=== PATIENT | female | born 1965 | race Caucasian/White ===

== ENCOUNTER 2016-07-16 18:54 | Emergency (ER) | payer MEDICARE, MEDICAID ==
[~2016-07-16] VITALS: Ht 162.5 cm; Wt 79.4 kg
[~2016-07-16 18:54] MED LIST: ALTOPREV20 MG PO; AMBIEN10 M1 PO; AMOXIL500 MG PO; ANAPROX DS550 MG PO; AUGMENTIN 500500 M1 PO; AUGMENTIN 875 M1 TAB PO; AUGMENTIN 875875 MG PO; BACTRIM DS 8001 TA1 PO; BENADRYL ALLERG25 M5 PO; CARAFATE1 G1 PO; CEFADROXIL500 M1 PO; CEFTRIAXONE1 GM IV; CIPRO IV; CIPRO500 MG PO; CLARITIN10 MG PO; CLINDAMYCIN150 MG PO; COLACE100 MG PO; COZAAR50 MG PO; CYMBALTA20 MG PO; DARVOCET N 1001 TAB PO; DAYPRO600 M1 PO; DOXYCYCLINE100 MG PO; DUONEB 3 MG/3 ML3 M1 INH; DURAMORPH1 MG/ML IV; FEOSOL300 MG PO; FLOMAX0.4 MG PO; FLOXIN 10 ML10 ML OT; FOLIC ACID1 MG PO; Fiorinal,Butalb1 TAB PO; GABAPENTIN300 MG PO; GLUCOPHAGE500 MG PO; GLYBURIDE2.5 MG PO; HEPARIN SOD5000 U/ML SQ; HUMALOG100 U/ML SC; HUMALOG100 U/ML SQ; HUMALOG100 UNIT/2 SQ; HYDROCODONE BIT1 T11 PO; INSULIN-HUMA100 U/ML SC; JANUVIA50 MG PO; KLONOPIN0.5 MG PO; LANTUS SOLOS100 U/M1 SC; LANTUS100 U/ML SC; LASIX20 MG PO; LASIX40 MG PO; LEVAQUIN500 M1 PO; LEVOTHYROXIN0.025 MG PO; LIPITOR10 MG PO; LIPITOR20 MG PO; LISINOPRIL10 MG PO; LISINOPRIL2.5 MG PO; LOVENOX30 MG/0.3 SC; LOVENOX40 MG/0.4 SC; LYRICA150 MG PO; LYRICA200 M1 PO; LYRICA200 MG PO; LYRICA50 MG PO; Lovenox40 MG/0.4 SC; MARINOL2.5 MG PO; MEDROL DOSEPAK4 MG PO; MEGACE 40400 MG/10 PO; METFORMIN1000 MG PO; METFORMIN500 MG PO; MIRALAX POWDER255 GM PO; MOBIC15 MG PO; MOTRIN600 MG PO; MOTRIN800 MG PO; MULTIPLE VITAMI1 CAP PO; NAPROSYN500 MG PO; NEURONTIN300 MG PO; NEURONTIN600 MG PO; NEURONTIN800 MG PO; NORCO 10-325 T1 EACH PO; NORCO 7.5-3251 EACH PO; NOVOLIN R100 U/ML SC; NOVOLOG (INSULI10 ML SC; NOVOLOG FLEX100 U/ML SC; NOVOLOG1 UNIT/0.0; OMEPRAZOLE20 M2 PO; ONDANSETRON H2 MG/ML IV; OSCAL,OYSTER S500 MG PO; OXYCONTIN10 MG PO; PENICILLIN VK500 MG PO; PERCOCET 325 MG1 TA2 PO; PERCOCET 325 MG1 TA5 PO; PERCOCET 325 MG1 TA6 PO; PERCOCET 325 MG1 TA7 PO; PERCOCET 650 MG1 TA1 PO; PHENERGAN25 M3 PO; PHENERGAN25 MG PO; PRAVACHOL40 MG PO; PRILOSEC20 M1 PO; PROSTAT 64 PO; PROTONIX40 MG PO; Peridex 473 ML473 ML PO; ROBAXIN750 MG PO; ROBITUSSIN-AC 160 ML PO; SERTRALINE HYDR25 MG PO; SILVADENE1% TP; Synthroid,Levo25 MCG PO; TRAMADOL HCL50 MG PO; TRICOR48 MG PO; TRIMOX500 MG PO; TYLENOL WITH CO1 TA1 PO; TYLENOL325 M1 PO; ULTRAM50 MG PO; VANCOMYCIN; VANCOMYCIN HYDRO1 G1; VANCOMYCIN IV; VIBRAMYCIN100 MG PO; VICO75300 PO; VICODIN 5-3001 EACH PO; VICODIN 5/500 505 MG PO; VICODIN 500 MG-1 TAB PO; VITAMIN D2000 IU PO; VITAMIN D50000 I3 PO; ZESTRIL,PRINIVI20 MG PO; ZOCOR10 MG PO; ZOFRAN ODT4 MG SL; ZOFRAN4 MG PO; ZOLOFT50 MG PO; ZYRTEC10 MG PO; Zofran4 MG PO; [UNRECOGNIZED DRUG - OTHER]; [UNRECOGNIZED DRUG - OTHER] IV
[2016-07-16] MEDS ORDERED: COREG CR40 MG PO (19:22)
[2016-07-16 19:45] LABS: BASO # 0.1 10*3/uL (0.0-0.1); BASO % 0.6 % (0.0-1.0); EOS # 0.3 10*3/uL (0.0-0.4); HEMOGLOBIN 11.4 g/dl (12.0-16.0); LYMPH # 1.6 10*3/uL (1.3-4.4); LYMPH % 18.4 % (27.0-41.0); MEAN CORPUSCULAR HGB CONC 32.6 g/dl (33.0-37.0); MEAN PLATELET VOLUME 11.3 fl (9.6-12.3); MONO # 0.6 10*3/uL (0.1-1.0); MONO % 7.1 % (3.0-9.0); NEUT # 6.3 10*3/uL (2.3-7.9); NEUT % 70.6 % (47.0-73.0); PLATELET COUNT AUTOMATED 272 10*3/uL (130-400); RED BLOOD COUNT 4.07 10*6/uL (4.10-5.10); RED CELL DISTRI WIDTH 15.6 % (0-14.5); WHITE BLOOD COUNT 8.9 10*3/uL (4.8-10.8)
[2016-07-16 20:02] LABS: ALBUMIN 3.1 gm/dl (3.1-4.5); ALKALINE PHOSPHATASE 74 U/L (45-117); BILIRUBIN, TOTAL 0.3 mg/dl (0.2-1.0); BUN 35 mg/dl (7-24); CARBON DIOXIDE 21 mmol/L (21-32); CHLORIDE 106 mmol/L (98-107); EST GLOM FILT AFRICAN AMERICAN 40 ml/min; GLUCOSE 221 mg/dL (65-99); SGOT/AST 8 IU/L (3-35); SGPT/ALT 17 U/L (12-78); SODIUM 138 mmol/L (136-145); TOTAL PROTEIN 8.3 gm/dL (6.4-8.2)
[2016-07-16 20:07] LABS: TROPONIN I < 0.015 ng/ml (<0.045)
[2016-07-16 20:30] LABS: BILIRUBIN NEGATIVE (NEGATIVE); BLOOD 2+ (NEGATIVE); CLARITY SL CLOUDY (CLEAR); COLOR YELLOW (YELLOW); GLUCOSE 1+ (NEGATIVE); KETONE NEGATIVE (NEGATIVE); LEUKO ESTERASE NEGATIVE (NEGATIVE); NITRITE NEGATIVE (NEGATIVE); PROTEIN 3+ (NEGATIVE); SPECIFIC GRAVITY 1.025 (1.005-1.030); UROBILINOGEN 0.2 E.U./dl (0.2-1.0)
[2016-07-16 20:41] LABS: BACTERIA 1+; EPITHELIAL CELLS 20-25; URINE REFLEX COMMENT YES (NO)
[2016-07-16] MEDS ORDERED: LYRICA200 M1 PO (21:00)
== END 2016-07-16 21:24 | disposition home or self-care (01) ==
LOC: ED 18:54
PROVIDERS: Emergency Medicine Emergency Medical Services
DX: G62.81 Critical illness polyneuropathy (principal); I99.8 Other disorder of circulatory system; E10.10 Type 1 diabetes mellitus with ketoacidosis without coma; E10.621 Type 1 diabetes mellitus with foot ulcer; F14.10 Cocaine abuse, uncomplicated; F41.1 Generalized anxiety disorder; M86.9 Osteomyelitis, unspecified; Z88.1 Allergy status to other antibiotic agents; Z79.899 Other long term (current) drug therapy

== ENCOUNTER 2016-07-17 21:14 | Emergency (ER) | payer MEDICARE, MEDICAID ==
[~2016-07-17] VITALS: Ht 162.5 cm; Wt 79.4 kg
[~2016-07-17 21:14] MED LIST changes: +COREG CR40 MG PO
[2016-07-17 21:19] VITALS: BP 162/74
[2016-07-17 21:39] LABS: BASO # 0.1 10*3/uL (0.0-0.1); BASO % 0.7 % (0.0-1.0); EOS # 0.2 10*3/uL (0.0-0.4); EOS % 2.8 % (1.0-4.0); HEMOGLOBIN 11.2 g/dl (12.0-16.0); LYMPH # 1.6 10*3/uL (1.3-4.4); LYMPH % 19.9 % (27.0-41.0); MEAN CELL VOLUME 86.6 fl (81.0-99.0); MEAN CORPUSCULAR HGB 27.7 pg (27.0-31.0); MEAN PLATELET VOLUME 11.4 fl (9.6-12.3); MONO # 0.6 10*3/uL (0.1-1.0); NEUT # 5.6 10*3/uL (2.3-7.9); NEUT % 69.4 % (47.0-73.0); PLATELET COUNT AUTOMATED 285 10*3/uL (130-400); RED BLOOD COUNT 4.04 10*6/uL (4.10-5.10); RED CELL DISTRI WIDTH 15.6 % (0-14.5); WHITE BLOOD COUNT 8.1 10*3/uL (4.8-10.8)
[2016-07-17 21:58] LABS: ALBUMIN 3.1 gm/dl (3.1-4.5); BILIRUBIN, TOTAL 0.3 mg/dl (0.2-1.0); TOTAL PROTEIN 8.3 gm/dL (6.4-8.2)
== END 2016-07-18 00:03 | disposition home or self-care (01) ==
LOC: ED 21:14
PROVIDERS: Nurse Practitioner Family
DX: S20.211A Contusion of right front wall of thorax, initial encounter (principal); S30.0XXA Contusion of lower back and pelvis, initial encounter; Z88.1 Allergy status to other antibiotic agents; Z79.899 Other long term (current) drug therapy; W05.0XXA Fall from non-moving wheelchair, initial encounter; R03.0 Elevated blood-pressure reading, without diagnosis of hypertension; Y93.9 Activity, unspecified; Y92.9 Unspecified place or not applicable; Y99.9 Unspecified external cause status

== ENCOUNTER 2016-09-07 20:41 | Emergency (ER) | payer MEDICARE, MEDICAID ==
[~2016-09-07] VITALS: Ht 162.5 cm; Wt 79.4 kg
[2016-09-07 23:04] VITALS: BP 178/87
[2016-09-08] MEDS ORDERED: NOVOLOG10 ML SC (17:24)
[2016-09-08] MEDS ORDERED: ZOFRAN8 M1 PO (17:25)
== END 2016-09-07 23:54 | disposition home or self-care (01) ==
LOC: ED 20:41
DX: M79.604 Pain in right leg (principal); M79.605 Pain in left leg; I50.9 Heart failure, unspecified; F41.1 Generalized anxiety disorder; M86.9 Osteomyelitis, unspecified; E10.621 Type 1 diabetes mellitus with foot ulcer; E10.10 Type 1 diabetes mellitus with ketoacidosis without coma; F17.200 Nicotine dependence, unspecified, uncomplicated; Z88.1 Allergy status to other antibiotic agents; Z79.899 Other long term (current) drug therapy; Z79.4 Long term (current) use of insulin

== ENCOUNTER 2016-09-08 12:56 | Inpatient (IN) | payer MEDICARE, MEDICAID ==
[~2016-09-08] VITALS: Ht 162.5 cm; Wt 94.1 kg
[2016-09-08] VITALS (8 sets, daily range): BP systolic 131–204; BP diastolic 72–92
--- NOTE | ~2016-09-08 | PR ---
[place], [place] PROGRESS NOTE NAME: KARTHIKEYAN MIDDLETON [facility] #: [id number] UNIT #: [id number] ROOM: 520 DOCTOR: MAIA AGUILAR MD BIRTHDATE: [birth year] DOS: 09/10/2016 SUBJECTIVE: The patient complaining of epigastric pain, otherwise is doing well. She also has this recurrent nausea and vomiting. OBJECTIVE: VITAL SIGNS: Blood pressure 138/69, heart rate of 65 beats per minute, breathing 20 times per minute, temperature 98.4 degrees Fahrenheit. GENERAL APPEARANCE: The patient is alert and oriented x 3, in no visible distress. HEENT AND NECK: Exam within normal limits. CARDIOVASCULAR SYSTEM: Heart rate is regular in rate and rhythm. S1 and S2 normally audible. LUNGS: Clear to auscultation. ABDOMEN: Soft, nontender. No obvious organomegaly. Bowel sounds are present. EXTREMITIES: Without significant cyanosis or edema. IMPRESSION: 1. The patient with some epigastric discomfort and pain with the complaints of nausea and vomiting, although overall patient is looking very good. I am treating her with IV Zofran and Dr. Correa, the diamond sizer, is seeing her for this issue. The patient does have chronic complaints of these symptoms, otherwise, she is looking very good. 2. Urinary tract infection with Klebsiella pneumoniae sensitive to all antibiotics. The patient is already on Zosyn, which is more than adequately covering the organism. Continued request for pain medication and narcotics. The patient has history of drug abuse including cocaine and we are avoiding giving her and overdosing her with narcotic pain medications. The patient apparently looking very comfortable and is in no distress otherwise. We will wait to see what Dr. Correa suggests. The patient discharged to home has been delayed because of her epigastric pain complaints, but abdominal exam was benign. No rigidity, guarding or rebound tenderness or any other abnormality. Bowel sounds are present. No obvious organomegaly. 3. Benign essential hypertension with controlled blood pressures. 4. Chronic diastolic type congestive heart failure, compensated. 5. Hyperkalemia, treated and resolved. 6. Acute tubular necrosis with the elevation of BUN and creatinine, treated with hydration and normal saline. BUN and creatinine was 27 and 1.9 today and improved from yesterday. 7. Diabetic gastroparesis with poorly controlled sugars. Overall, I will check her HbA1c. 8. Type 2 diabetes mellitus. Blood sugars are being monitored and treated. 9. Diabetic nephropathy with chronic kidney disease stage 3B. [place], [place] PROGRESS NOTE NAME: KARTHIKEYAN MIDDLETON UNIT #: [id number] ROOM: [facility] DOCTOR: MAIA AGUILAR MD BIRTHDATE: [birth year] MAIA AGUILAR MD CM:PNTRANS [id number] MAIA AGUILAR MD 09/11/16 1430 interface
--- NOTE | ~2016-09-08 | PR ---
[place], [place] PROGRESS NOTE NAME: KARTHIKEYAN MIDDLETON UNIT #: [id number] ROOM: 520 DOCTOR: MAIA AGUILAR MD BIRTHDATE: [birth year] DOS: 09/09/2016 SUBJECTIVE: The patient now complaining of diarrhea as well as nausea and vomiting. OBJECTIVE: VITAL SIGNS: Blood pressure 112/86, heart rate of 76 beats per minute, afebrile. GENERAL APPEARANCE: The patient is alert and oriented x 3, in no visible distress. HEENT AND NECK: Exam within normal limits. CARDIOVASCULAR SYSTEM: Heart rate is regular in rate and rhythm. S1 and S2 normally audible. LUNGS: Clear to auscultation. ABDOMEN: Some left flank discomfort on abdominal palpation. EXTREMITIES: Without significant cyanosis or edema. IMPRESSION: 1. Urinary tract infection with urine cultures growing more than 100,000 colonies and left flank tenderness. The patient to be started on treatment with IV Zosyn and wait for culture results. 2. Diabetic gastroparesis with one episode of vomiting and some nausea. The patient is being treated with Zofran. 3. Elevation of, BUN and creatinine, apparently acute tubular necrosis from dehydration and urinary infection with not enough oral intake because of patient being sick to her stomach. The patient being hydrated with normal saline. 4. Hyperkalemia, apparently related to acute over chronic kidney disease being treated with hydration and normal saline and serum electrolytes are being monitored. 5. Chronic diastolic type congestive heart failure, compensated. 6. Benign essential hypertension with controlled blood pressures with treatment. 7. I am getting Dr. Correa, the gun examiner to see her for complaints of stomach pains. [place], [place] PROGRESS NOTE NAME: KARTHIKEYAN MIDDLETON UNIT #: [id number] ROOM: 520 DOCTOR: MAIA AGUILAR MD BIRTHDATE: [birth year] MAIA AGUILAR MD CM:PNTRANS [id number] MAIA AGUILAR MD 09/10/16 0324 interface
--- NOTE | ~2016-09-08 | DS ---
[place], [place] DISCHARGE SUMMARY NAME: KARTHIKEYAN MIDD[facility]TON [facility] #: [id number] UNIT #: [id number] ROOM: 520 DOCTOR: MAIA AGUILAR MD BIRTHDATE: [birth year] DOS: 09/11/2016 DISCHARGE DIAGNOSES: 1. Diabetic gastroparesis with recurrent nausea and vomiting. 2. Urinary tract infection with Klebsiella pneumoniae, treated with IV Zosyn. 3. Epigastric pains. Dr. Correa, the circuit tester was consulted to evaluate her. The patient was treated with Zofran as needed and symptoms her improved. The patient is being transferred to a fdc for rehab and continued care. 4. Acute over chronic kidney disease with dehydration, improved with hydration and normal saline. 5. Diabetic gastroparesis and uncontrolled blood sugars. Blood sugars are monitored and treated. 6. Diabetic nephropathy with chronic kidney disease stage 3B. 7. The patient worried about her pancreatitis happening again, so I have ordered amylase and lipase levels and will be checked and if normal, the patient can be discharged to the fdc for continued care. Laboratory data, blood cultures were normal. BUN and creatinine 25 and 2.15. Urine cultures grew Klebsiella pneumoniae. CT of the abdomen and pelvis showed no acute process, no pancreatitis. Hemoglobin 9.8. 8. Hyperkalemia, resolved with hydration with normal saline. 9. Centrilobular emphysema with chronic shortness of breath. DISCHARGE MANAGEMENT: Augmentin 875 mg twice a day for 5 days, Coreg 12.5 mg b.i.d., simvastatin 10 mg daily, levothyroxine 25 mcg daily, Lasix 40 mg a day, Zoloft 50 mg a day. MAIA AGUILAR MD CM:DISCHARG [phone] MAIA AGUILAR MD 09/11/16 2334 interface
--- NOTE | ~2016-09-08 | CON ---
[place], [place] REPORT OF CONSULTATION [id number] UNIT #: [id number] ROOM: 520 DOCTOR: DAVIE BARKLEY MD BIRTHDATE: [birth year] DOS: 09/10/2016 HISTORY OF PRESENT ILLNESS: The patient has presented with multiple medical problems, among which has been 4 days of nausea, vomiting, and the patient is a diabetic, which has been a concern regarding her glucose control. Her white blood cell at the time of admission was 10, H and H of 11 and 36. Lactic acid was 1.7. Comprehensive metabolic panel with glucose of 300, BUN and creatinine 29 and 2.0, and GFR greater than 30. Her potassium was 5.6. Liver function test normal. She used to be on dialysis. Dialysis has stopped since May. CBC differential labs and records was reassessed. Urine culture greater than 100,000 gram-negative bacillus, and electrolytes was repeated. We reassessed blood cultures. No growth was seen. The patient on multi antibiotic. PAST MEDICAL HISTORY: Associated with diabetes mellitus, renal insufficiency, recreational drugs, cocaine history, congestive heart failure, dehydration, and DKA. PAST SURGICAL HISTORY: MediPort, , and podiatric surgeries. SOCIAL HISTORY: Nonsmoker, nonalcohol consumer, recreational drug history. FAMILY HISTORY: Father with pancreatic CA. REVIEW OF SYSTEMS: HEENT: Denies double vision, blurred vision. RESPIRATORY: Denies acute shortness of breath. CARDIOVASCULAR: Denies chest pain. DIGESTIVE SYSTEM: Recurrent nausea, vomiting. PHYSICAL EXAMINATION: VITAL SIGNS: Stable. HEENT: Head normocephalic, nontraumatic. Mouth and buccal mucosa benign, diabetic eyes. NECK: Supple, no thyromegaly, no cervical lymphadenopathy. CHEST: Symmetric anatomy, equal expansion. No wheeze, no rhonchi. HEART: Normal sinus rhythm, no gallop, no murmur. ABDOMEN: Soft. No hepato-organomegaly. Bowel sounds present. EXTREMITIES: No cyanosis. No pedal edema. NEUROLOGIC: Alert, oriented to time, place, person. IMPRESSION: 1. Recurrent nausea, vomiting. 2. Diabetes mellitus, diabetic gastroparesis. 3. Urinary tract infection. PLAN AND DISCUSSION: As far as the relentless nausea and vomiting is concerned, I am going to consider endoscopic assessment. She has had a previous recent colonoscopies done. Therefore, I am not concerned about the lower GI tract and management of upper tract bearing in mind the history of cocaine. [place], [place] REPORT OF CONSULTATION NAME: KARTHIKEYAN MIDDLETON UNIT #: [id number] ROOM: [facility] DOCTOR: DAVIE BARKLEY MD BIRTHDATE: [birth year] DAVIE BARKLEY MD CM:CONSTR:REPORT OF CONSULTATION 1734 09/11/16 0749 interface
--- NOTE | ~2016-09-08 | O ---
[place], [place] OPERATIVE NOTE NAME: KARTHIKEYAN MIDDLETON UNIT #: [id number] ROOM: 520 DOCTOR: FILIPPO BERNAL,DAVIE BIRTHDATE: [birth year] DOS: INDICATIONS: A 50-year-old patient who has presented with chief complaint of 4 days of nausea, vomiting, the patient with a history of diabetes mellitus, recurrent admission through the Emergency Room. The patient has been complaining also of epigastric distress. Consultation dictated. PROCEDURE: Today's procedure part of investigation panendoscopy plus biopsy. PREMEDICATION: Versed and Diprivan. SCOPE: Olympus forward-viewing gastroscope Q10 video. REPORT: After putting the patient in the left lateral position and after application of lubricant to the scope, the scope was introduced. Thereafter, under direct visualization, I advanced through the length of the esophagus without difficulty. Esophagus, cervicothoracic distally carefully examined. Gastric pouch was entered. Gastritis was seen. Duodenal bulb, second and third part within normal limit. No obstructive pathology identified. No evidence of severe ulcerations or concerns clinically is noticed. The patient extubated, tolerated procedure well. IMPRESSION: Gastritis, history of diabetes mellitus, a gastroparesis could be an element. On the other hand, the patient with urinary tract infection, greater than 100,000 gram-negative bacilli on antibiotic that could also have played a role in her nausea. On the other hand, the patient has been on multi antibiotic. We are going to continue keeping her on PPI and Zofran and the patient with a history of cocaine was noticed. Supportive management otherwise. DAVIE BARKLEY MD CM:OPRECORD:OPERATIVE NOTE 1810 06 DAVIE BARKLEY MD 09/10/162006 interface
--- NOTE | ~2016-09-08 | WRIGHTHP ---
[place], [place] PATIENT HISTORY AND PHYSICAL EXAM NAME: KARTHIKEYAN MIDDLETON [facility] #: [id number] UNIT #: [id number] ROOM: 520 DOCTOR: MAIA AGUILAR MD BIRTHDATE: [birth year] DOS: 09/08/2016 HISTORY OF PRESENT ILLNESS: The patient presented to the Emergency Department with complaints of abdominal pain in the epigastric area. The patient was found to have hyperkalemia, some elevation of BUN and creatinine from baseline, elevated blood pressure and after initial treatment in the Emergency Department, the patient was recommended for admission for accelerated hypertension and hyperkalemia. After admission, the patient is starting to feel better with initial treatment. No chest pains, no increased shortness of breath, no other GI or urinary symptoms. SYSTEMS REVIEW: LUNGS: No increasing shortness of breath or wheezing. GASTROINTESTINAL: No nausea, vomiting, diarrhea, or constipation, but the patient has abdominal pain complaints. CARDIOVASCULAR SYSTEM: No chest pains or palpitations. FAMILY HISTORY: Noncontributory. MEDICATIONS: Zoloft, levothyroxine, furosemide, Coreg, simvastatin, Lyrica. ALLERGIES: Known allergies to IODINE AND BIAXIN. PHYSICAL EXAMINATION: GENERAL: Alert and oriented x 3, moderately obese. HEENT AND NECK: Extraocular movements are intact. Sclerae are anicteric. Oral mucosa is moist and clean. No obvious facial weakness. Neck is supple without any lymphadenopathy. No thyromegaly. No JVD. No carotid arterial bruits. LUNGS: Clear to auscultation. No wheezing. No rhonchi. CARDIOVASCULAR SYSTEM: Heart rate is regular in rate and rhythm. S1 and S2 normally audible. No significant murmur or any other abnormal cardiac sounds. ABDOMEN: Soft, nontender. No obvious organomegaly. Bowel sounds are present. No obvious herniation. EXTREMITIES: Without significant cyanosis or edema. Warm to touch. CENTRAL NERVOUS SYSTEM: Alert and oriented x 3. Cranial nerves II-XII are intact. Speech is normal. The patient is able to move all extremities. Normal muscle strength. Deep tendon reflexes are equal on both sides. Plantars were downgoing. IMPRESSION: The patient with accelerated hypertension, improved after initial treatment in the ER. 1. Elevation of BUN and creatinine, abdominal pains and the patient had some vomiting yesterday. BUN and creatinine elevated at 29 and 2. The patient will be hydrated and BUN and creatinine repeated tomorrow. 2. Hyperkalemia with potassium of 5.6. I will treat with hydration with normal saline. The patient with chronic diastolic type congestive heart failure, compensated. 3. Benign essential hypertension with elevated blood pressures. Blood pressures will be monitored and treated and treatment adjusted accordingly. 4. Type 2 diabetes mellitus. Monitor blood sugars, keep her on no concentrated [place], [place] PATIENT HISTORY AND PHYSICAL EXAM NAME: KARTHIKEYAN MIDDLETON UNIT #: [id number] ROOM: [facility] [place] DOCTOR: LAUREN BERNAL,MAIA Gould BIRTHDATE: [birth year] sweet diet and treat accordingly. 5. Centrilobular emphysema with chronic shortness of breath, we will treat accordingly. Keep on DuoNebs. 6. Diabetic nephropathy with chronic kidney disease stage 3B. MAIA AGUILAR MD CM:HISPHYS:PATIENT HISTORY AND PHYSICAL EXAMINATION 47 17 MAIA AGUILAR MD 09/08/162017 interface
[2016-09-08 13:53] LABS: BASO # 0.1 10*3/uL (0.0-0.1); BASO % 0.5 % (0.0-1.0); EOS # 0.2 10*3/uL (0.0-0.4); EOS % 2.3 % (1.0-4.0); HEMATOCRIT 36.5 % (37.0-47.0); HEMOGLOBIN 11.8 g/dl (12.0-16.0); LYMPH # 1.2 10*3/uL (1.3-4.4); LYMPH % 12.2 % (27.0-41.0); MEAN CELL VOLUME 86.9 fl (81.0-99.0); MEAN CORPUSCULAR HGB 28.1 pg (27.0-31.0); MEAN CORPUSCULAR HGB CONC 32.3 g/dl (33.0-37.0); MEAN PLATELET VOLUME 10.4 fl (9.6-12.3); MONO # 0.7 10*3/uL (0.1-1.0); MONO % 6.9 % (3.0-9.0); NEUT # 7.8 10*3/uL (2.3-7.9); NEUT % 77.8 % (47.0-73.0); PLATELET COUNT AUTOMATED 300 10*3/uL (130-400); RED CELL DISTRI WIDTH 15.2 % (0-14.5)
[2016-09-08 14:09] LABS: ALBUMIN 2.7 gm/dl (3.1-4.5); BILIRUBIN, TOTAL 0.2 mg/dl (0.2-1.0); POTASSIUM 5.6 mmol/L (3.5-5.1); TOTAL PROTEIN 7.5 gm/dL (6.4-8.2)
[2016-09-08 16:08] LABS: BILIRUBIN NEGATIVE (NEGATIVE); BLOOD 2+ (NEGATIVE); CLARITY SL CLOUDY (CLEAR); COLOR YELLOW (YELLOW); GLUCOSE 3+ (NEGATIVE); KETONE NEGATIVE (NEGATIVE); LEUKO ESTERASE NEGATIVE (NEGATIVE); NITRITE NEGATIVE (NEGATIVE); PH 6.5 (5.0-9.0); PROTEIN 3+ (NEGATIVE); UROBILINOGEN 0.2 E.U./dl (0.2-1.0)
[2016-09-08 16:23] LABS: BACTERIA 3+; WBC TNTC wbc/hpf (0-5)
[2016-09-08 16:24] LABS: URINE REFLEX COMMENT YES (NO)
[2016-09-08] MEDS ORDERED: NOVOLOG10 ML SC (17:24)
[2016-09-08] MEDS ORDERED: ZOFRAN8 M1 PO (17:25)
[2016-09-09] VITALS: BP 148/69
[2016-09-09 06:26] LABS: BASO % 0.5 % (0.0-1.0); EOS # 0.3 10*3/uL (0.0-0.4); EOS % 3.8 % (1.0-4.0); HEMATOCRIT 30.8 % (37.0-47.0); HEMOGLOBIN 9.8 g/dl (12.0-16.0); LYMPH # 1.8 10*3/uL (1.3-4.4); LYMPH % 20.8 % (27.0-41.0); MEAN CELL VOLUME 88.5 fl (81.0-99.0); MEAN CORPUSCULAR HGB 28.2 pg (27.0-31.0); MEAN CORPUSCULAR HGB CONC 31.8 g/dl (33.0-37.0); MEAN PLATELET VOLUME 10.9 fl (9.6-12.3); MONO # 0.9 10*3/uL (0.1-1.0); MONO % 9.9 % (3.0-9.0); NEUT # 5.6 10*3/uL (2.3-7.9); NEUT % 64.7 % (47.0-73.0); PLATELET COUNT AUTOMATED 250 10*3/uL (130-400); RED BLOOD COUNT 3.48 10*6/uL (4.10-5.10); RED CELL DISTRI WIDTH 15.1 % (0-14.5); WHITE BLOOD COUNT 8.6 10*3/uL (4.8-10.8)
[2016-09-09 06:55] LABS: POTASSIUM 4.8 mmol/L (3.5-5.1)
[2016-09-09 08:00] VITALS: BP 102/83
[2016-09-09 12:00] VITALS: BP 112/86
[2016-09-09 16:00] VITALS: BP 132/60
[2016-09-09 20:00] VITALS: BP 159/88
[2016-09-10] VITALS (9 sets, daily range): BP systolic 115–151; BP diastolic 50–70
[2016-09-10 06:46] LABS: POTASSIUM 4.8 mmol/L (3.5-5.1)
[2016-09-11] VITALS: BP 133/81
[2016-09-11 04:23] VITALS: BP 142/76
[2016-09-11 06:58] LABS: POTASSIUM 4.4 mmol/L (3.5-5.1)
[2016-09-11 08:00] VITALS: BP 135/72
[2016-09-11 12:00] VITALS: BP 131/53
[2016-09-11 16:00] VITALS: BP 146/61
[2016-09-11] MEDS ORDERED: AUGMENTIN 875-875 MG PO (17:39)
[2016-09-11 20:00] VITALS: BP 158/70
[2016-09-12] VITALS: BP 158/61
[2016-09-12 08:00] VITALS: BP 118/60
== END 2016-09-12 10:25 | disposition other institution (70) | DRG 73 ==
LOC: ED 12:56 → 5E 15:59 → EDHOLD 15:59 → 5E 16:33
PROVIDERS: Internal Medicine; Nurse Practitioner Family
PROC: 0DB68ZX Excision of Stomach, Via Natural or Artificial Opening Endoscopic, Diagnostic (ICD-10-PCS; principal; 2016-09-10)
DX: E11.43 Type 2 diabetes mellitus with diabetic autonomic (poly)neuropathy (principal); N17.0 Acute kidney failure with tubular necrosis; I13.0 Hypertensive heart and chronic kidney disease with heart failure and stage 1 through stage 4 chronic kidney disease, or unspecified chronic kidney disease; E44.0 Moderate protein-calorie malnutrition; I50.32 Chronic diastolic (congestive) heart failure; N39.0 Urinary tract infection, site not specified; K31.84 Gastroparesis; E86.0 Dehydration; E11.22 Type 2 diabetes mellitus with diabetic chronic kidney disease; J43.9 Emphysema, unspecified; N18.3 Chronic kidney disease, stage 3 (moderate); E11.65 Type 2 diabetes mellitus with hyperglycemia; E87.5 Hyperkalemia; K29.70 Gastritis, unspecified, without bleeding; B96.1 Klebsiella pneumoniae [K. pneumoniae] as the cause of diseases classified elsewhere; Z88.8 Allergy status to other drugs, medicaments and biological substances; Z91.041 Radiographic dye allergy status; Z80.42 Family history of malignant neoplasm of prostate; Z68.33 Body mass index [BMI] 33.0-33.9, adult

== ENCOUNTER 2016-11-30 14:10 | Inpatient (IN) | payer MEDICARE, MEDICAID ==
[~2016-11-30] VITALS: Ht 162.5 cm; Wt 103.1 kg
--- NOTE | ~2016-11-30 | CON ---
[place], [place] REPORT OF CONSULTATION NAME[id number] UNIT #: [id number] ROOM: 403 DOCTOR: ERLINDA GRAY MD BIRTHDATE: [birth year] DOS: 11/30/2016 HISTORY OF PRESENT ILLNESS: This is a 51-year-old -[place] woman with a history of longstanding diabetes mellitus, morbid obesity, chronic kidney disease stage 4, carries a diagnosis of congestive heart failure, remote history of cocaine abuse and recreational drugs. I believe she has never had a heart attack. No COPD, pulmonary embolism or stroke. She had a in the remote past. She does not smoke nor does she drink alcoholic beverages, but had used recreational drugs at times. She lives in a residential and apparently over the last few weeks, her legs have been becoming more and more swollen, now thighs are puffy, legs are stiff and she has some shortness of breath as well. She gets short of breath at night. She also has had exertional chest heaviness, pressure that has been coming and going for the last one month. She claims it has not occurred at rest. No palpitations, has not had any loss of consciousness, and no neurological symptoms. HOME MEDICATIONS: Include Augmentin, carvedilol SR 40 daily, furosemide 40 mg daily p.o., levothyroxine 25 mcg daily, Zofran p.r.n., Lyrica 200 mg t.i.d. and Zoloft 50 mg daily, , 10 mg daily, and insulin. PHYSICAL EXAMINATION: GENERAL: This is a patient who is alert, she is oriented. She looks pale. She is not in any distress. No finger clubbing is present. NECK: Thyroid gland is difficult to palpate. CARDIOVASCULAR: Pulse is 66 and irregular, blood pressure 155/73. Jugular veins are markedly distended in the sitting position. Her ear lobes are bobbing indicating central venous pressure to be greater than 20 cm of water. She has severe edema of the lower extremities with little difficult pitting. There is 1+ sacral edema. RESPIRATORY: Breath sounds are mildly diminished with very few adventitious sounds. ABDOMEN: Large, somewhat taut, organs were difficult to palpate. Hemoglobin is 9 g/dL, BUN is 56, creatinine 2.54, GFR 20 mL per minute, potassium 5.0, sodium 138, albumin 2.6 g/dL. Chest x-ray was not done. Abdominal series was performed. IMPRESSION: This patient has severe right heart failure and jugular venous pressure is rather high. RECOMMENDATIONS: IV furosemide should be used in larger doses and I expect renal function to improve as central venous pressure comes down. She also has some what sounds like exertional angina and this is of 1 month's duration according to the patient and I think once her heart failure is under control, a Lexiscan Cardiolite study should be performed. [place], [place] REPORT OF CONSULTATION NAME: KARTHIKEYAN MIDDLETON UNIT #: [id number] ROOM: 403 DOCTOR: ERLINDA GRAY MD BIRTHDATE: [birth year] I thank you for this consult. ERLINDA GRAY MD CM:CONSTR:REPORT OF CONSULTATION 1841 12/01/16 0322 interface
--- NOTE | ~2016-11-30 | WRIGHTHP ---
[place], [place] PATIENT HISTORY AND PHYSICAL EXAM NAME: KARTHIKEYAN MIDDLETON [facility] #: [id number] UNIT #: [id number] ROOM: 403 DOCTOR: MELISSA CORTES MD BIRTHDATE: [birth year] DOS: 11/30/2016 HISTORY OF PRESENT ILLNESS: The patient is 51 years old, resident of [facility], was brought in with complaints of shortness of breath. The patient states that she has increased leg edema and increased shortness of breath. She uses oxygen at night at the care home, denies having any fever or chills, has a cough which is productive of scant amounts of sputum. Denies having any nausea or any emesis. PAST MEDICAL HISTORY: Significant for: 1. Type 1 diabetes mellitus, insulin-dependent. 2. Diabetic nephropathy with kidney disease, stage 4. 3. Adult failure to thrive. 4. Peripheral neuropathy with chronic pain. 5. Multiple hospitalizations for UTI and gastroparesis. 6. Centrilobular emphysema, oxygen-dependent with chronic respiratory failure. MEDICATIONS: She is currently on are Coreg CR 40 mg daily, Lasix 40 mg daily, levothyroxine 25 mcg daily, Lyrica 200 mg t.i.d., sertraline ____ daily, simvastatin 10 mg daily and insulin sliding scale. SOCIAL HISTORY: Smoker of about half to one pack of cigarettes a day. Denies using any alcohol. She is currently a resident of the care home. PHYSICAL EXAMINATION: VITAL SIGNS: Graphic trend shows a pressure of 138/62, pulse is 67, respirations are 20 and temperature is 97.8. LUNGS: Diminished breath sounds. HEART: Regular. ABDOMEN: Obese. EXTREMITIES: Wrapped in Emiliano wrap with chronic edema which is no different than her usual baseline status. LABORATORY DATA: At the time of admission, WBC count is 7.4, hemoglobin 9.0, hematocrit 29.4 and platelets 189. Comprehensive glucose 242; BUN 56; creatinine 2.54; GFR 20, which is again unchanged from her usual. Sodium 138, potassium 5.0, chloride 112, bicarbonate 18. ASSESSMENT AND PLAN: 1. The patient admitted with acute congestive heart failure. Chest x-ray shows no evidence of congestive heart failure and the patient appears to have acute bronchitis with bronchospasm. The patient did not have an IV access, does not need to stay in the hospital, will discharge on p.o. diuretics and p.o. antibiotics. Diuretics dosage will be increased slightly for a few days. 2. Type 1 diabetes mellitus, just on a coverage scale. I will leave it to her PCP to further adjust medications. 3. Stage 4 kidney failure, which will be followed up as an outpatient with routine labs on a regular basis. Lasix dosage will be increased slightly. 4. Low T4 noted. Thyroid dosage will be increased. [place], [place] PATIENT HISTORY AND PHYSICAL EXAM NAME: [facility] MID[facility]TON [facility] [id number] UNIT #: [id number] ROOM: [facility] DOCTOR: MELISSA CORTES MD BIRTHDATE: [birth year] MELISSA CORTES MD CM:HISPHYS:PATIENT HISTORY AND PHYSICAL EXAMINATION [id number] MELISSA CORTES MD 12/03/16 0846 interface
[~2016-11-30 14:10] MED LIST changes: +AUGMENTIN 875-875 MG PO; +NOVOLOG10 ML SC; +ZOFRAN8 M1 PO
[2016-11-30 14:21] VITALS: BP 144/68
[2016-11-30 14:38] LABS: BASO % 0.5 % (0.0-1.0); EOS # 0.2 10*3/uL (0.0-0.4); HEMATOCRIT 29.4 % (37.0-47.0); LYMPH # 1.1 10*3/uL (1.3-4.4); MEAN CELL VOLUME 92.5 fl (81.0-99.0); MEAN CORPUSCULAR HGB 28.3 pg (27.0-31.0); MEAN CORPUSCULAR HGB CONC 30.6 g/dl (33.0-37.0); MEAN PLATELET VOLUME 11.6 fl (9.6-12.3); MONO # 0.7 10*3/uL (0.1-1.0); MONO % 9.5 % (3.0-9.0); NEUT # 5.4 10*3/uL (2.3-7.9); NEUT % 72.6 % (47.0-73.0); PLATELET COUNT AUTOMATED 189 10*3/uL (130-400); RED BLOOD COUNT 3.18 10*6/uL (4.10-5.10); RED CELL DISTRI WIDTH 14.6 % (0-14.5); WHITE BLOOD COUNT 7.4 10*3/uL (4.8-10.8)
[2016-11-30 14:47] LABS: INTERNATIONAL NORM RATIO 1.1 (2.0-3.5); PROTHROMBIN TIME 11.2 SECONDS (9.0-12.4)
[2016-11-30 14:54] LABS: ALBUMIN 2.6 gm/dl (3.1-4.5); ALKALINE PHOSPHATASE 126 U/L (45-117); BILIRUBIN, TOTAL 0.2 mg/dl (0.2-1.0); BUN 56 mg/dl (7-24); CARBON DIOXIDE 18 mmol/L (21-32); CHLORIDE 112 mmol/L (98-107); EST GLOM FILT AFRICAN AMERICAN 24 ml/min; GLUCOSE 242 mg/dL (65-99); MAGNESIUM 1.8 mg/dL (1.5-2.1); SGOT/AST 7 IU/L (3-35); SGPT/ALT 20 U/L (12-78); SODIUM 138 mmol/L (136-145)
[2016-11-30 14:58] LABS: TROPONIN I < 0.015 ng/ml (<0.045)
[2016-11-30 15:05] VITALS: BP 153/75
[2016-11-30 16:14] VITALS: BP 130/59
[2016-11-30 16:38] VITALS: BP 155/73
[2016-11-30 18:40] VITALS: BP 159/86
[2016-11-30 20:00] VITALS: BP 150/90
[2016-12-01] VITALS: BP 138/62
[2016-12-01 06:17] LABS: BASO % 0.4 % (0.0-1.0); EOS # 0.2 10*3/uL (0.0-0.4); EOS % 2.7 % (1.0-4.0); HEMATOCRIT 29.8 % (37.0-47.0); HEMOGLOBIN 9.2 g/dl (12.0-16.0); IG # 0.1 10*3/uL (0.0-0.1); LYMPH # 1.4 10*3/uL (1.3-4.4); LYMPH % 17.5 % (27.0-41.0); MEAN CELL VOLUME 91.1 fl (81.0-99.0); MEAN CORPUSCULAR HGB 28.1 pg (27.0-31.0); MEAN CORPUSCULAR HGB CONC 30.9 g/dl (33.0-37.0); MEAN PLATELET VOLUME 11.8 fl (9.6-12.3); MONO # 0.8 10*3/uL (0.1-1.0); MONO % 9.2 % (3.0-9.0); NEUT # 5.6 10*3/uL (2.3-7.9); NEUT % 69.2 % (47.0-73.0); PLATELET COUNT AUTOMATED 188 10*3/uL (130-400); RED BLOOD COUNT 3.27 10*6/uL (4.10-5.10); RED CELL DISTRI WIDTH 14.6 % (0-14.5); WHITE BLOOD COUNT 8.1 10*3/uL (4.8-10.8)
[2016-12-01 06:33] LABS: FREE T4 0.73 ng/dl (0.76-1.46); PHOSPHOROUS 5.2 mg/dL (2.5-4.9); POTASSIUM 4.8 mmol/L (3.5-5.1)
[2016-12-01 06:38] LABS: THYROID STIM HORMONE (HS) 3.55 uIU/ml (0.358-4.75)
[2016-12-01 06:44] LABS: INTERNATIONAL NORM RATIO 1.1 (2.0-3.5); PROTHROMBIN TIME 11.5 SECONDS (9.0-12.4)
[2016-12-01] MEDS ORDERED: Synthroid,Levo25 MCG PO (07:08)
[2016-12-01] MEDS ORDERED: DOXYCYCLINE100 M3 PO (07:08)
[2016-12-01] MEDS ORDERED: LASIX100 MG/10 PO (07:08)
[2016-12-01] MEDS ORDERED: DUONEB 3 MG/3 ML3 M1 INH (07:08)
[2016-12-01] MEDS ORDERED: LISINOPRIL2.5 MG PO (07:10)
[2016-12-01] MEDS ORDERED: LASIX40 MG PO (07:12)
[2016-12-01 08:00] VITALS: BP 149/75
[2016-12-01 12:00] VITALS: BP 135/67
== END 2016-12-01 13:34 | disposition other institution (70) | DRG 202 ==
LOC: ED 14:10 → EDHOLD 16:49 → 4E 16:49
PROVIDERS: Nurse Practitioner Family; Student in an Organized Health Care Education/Training Program
DX: J20.9 Acute bronchitis, unspecified (principal); N17.9 Acute kidney failure, unspecified; J96.10 Chronic respiratory failure, unspecified whether with hypoxia or hypercapnia; N18.4 Chronic kidney disease, stage 4 (severe); E66.01 Morbid (severe) obesity due to excess calories; E10.22 Type 1 diabetes mellitus with diabetic chronic kidney disease; I50.9 Heart failure, unspecified; Z99.81 Dependence on supplemental oxygen; Z88.1 Allergy status to other antibiotic agents; Z91.041 Radiographic dye allergy status; Z79.2 Long term (current) use of antibiotics; Z79.899 Other long term (current) drug therapy; Z98.51 Tubal ligation status; Z80.8 Family history of malignant neoplasm of other organs or systems; Z83.3 Family history of diabetes mellitus; Z84.89 Family history of other specified conditions; Z68.39 Body mass index [BMI] 39.0-39.9, adult

== ENCOUNTER 2016-12-06 14:43 | Emergency (ER) | payer MEDICARE, MEDICAID ==
[~2016-12-06] VITALS: Ht 162.5 cm; Wt 102.5 kg
[2016-12-06 14:43] VITALS: BP 148/68
[~2016-12-06 14:43] MED LIST changes: +DOXYCYCLINE100 M3 PO; +LASIX100 MG/10 PO
[2016-12-06 16:01] LABS: BASO % 0.5 % (0.0-1.0); EOS # 0.2 10*3/uL (0.0-0.4); EOS % 2.2 % (1.0-4.0); HEMATOCRIT 28.7 % (37.0-47.0); HEMOGLOBIN 8.9 g/dl (12.0-16.0); LYMPH # 1.1 10*3/uL (1.3-4.4); LYMPH % 14.4 % (27.0-41.0); MEAN CORPUSCULAR HGB 28.5 pg (27.0-31.0); MEAN PLATELET VOLUME 11.6 fl (9.6-12.3); MONO # 0.7 10*3/uL (0.1-1.0); MONO % 8.9 % (3.0-9.0); NEUT # 5.7 10*3/uL (2.3-7.9); NEUT % 73.6 % (47.0-73.0); PLATELET COUNT AUTOMATED 192 10*3/uL (130-400); RED BLOOD COUNT 3.12 10*6/uL (4.10-5.10); WHITE BLOOD COUNT 7.8 10*3/uL (4.8-10.8)
[2016-12-06 16:08] LABS: INTERNATIONAL NORM RATIO 1.1 (2.0-3.5)
[2016-12-06 16:17] LABS: ALBUMIN 2.6 gm/dl (3.1-4.5); ALKALINE PHOSPHATASE 103 U/L (45-117); BUN 56 mg/dl (7-24); CHLORIDE 114 mmol/L (98-107); CPK 233 U/L (26-192); CREATININE 2.49 mg/dL (0.55-1.02); LDH 367 U/L (84-246); LIPASE 190 U/L (73-393); MAGNESIUM 1.5 mg/dL (1.5-2.1); POTASSIUM 5.5 mmol/L (3.5-5.1); SGOT/AST 13 IU/L (3-35); SGPT/ALT 18 U/L (12-78); SODIUM 141 mmol/L (136-145)
[2016-12-06 16:19] LABS: TROPONIN I < 0.015 ng/ml (<0.045)
[2016-12-06 16:21] LABS: CKMB 11.2 ng/ml (0.5-3.6)
[2016-12-06 16:32] LABS: BILIRUBIN NEGATIVE (NEGATIVE); BLOOD 2+ (NEGATIVE); CLARITY SL CLOUDY (CLEAR); COLOR YELLOW (YELLOW); GLUCOSE 2+ (NEGATIVE); KETONE NEGATIVE (NEGATIVE); LEUKO ESTERASE NEGATIVE (NEGATIVE); NITRITE NEGATIVE (NEGATIVE); SPECIFIC GRAVITY 1.025 (1.005-1.030); UROBILINOGEN 0.2 E.U./dl (0.2-1.0)
[2016-12-06 16:39] LABS: BACTERIA 4+; RBC 0-2 rbc/hpf (0-2); WBC TNTC wbc/hpf (0-5); YEAST TRACE
[2016-12-06 17:56] VITALS: BP 126/78
[2016-12-06 19:25] LABS: CREATININE 2.5 mg/dL (0.55-1.02); POTASSIUM 4.8 mmol/L (3.5-5.1)
[2016-12-06] MEDS ORDERED: SODIUM BICARBO650 MG PO (19:42)
== END 2016-12-06 22:39 | disposition other institution (70) ==
LOC: ED 14:43 → EDHOLD 17:02 → ED 22:39
PROVIDERS: Physician Assistant
DX: E87.5 Hyperkalemia (principal); N17.9 Acute kidney failure, unspecified; N18.9 Chronic kidney disease, unspecified; Z88.1 Allergy status to other antibiotic agents; Z79.899 Other long term (current) drug therapy

== ENCOUNTER 2016-12-24 14:55 | Inpatient (IN) | payer MEDICARE, MEDICAID ==
[~2016-12-24] VITALS: Ht 162.5 cm; Wt 106.4 kg
--- NOTE | ~2016-12-24 | CON ---
[place], [place] REPORT OF CONSULTATION [id number] UNIT #: [id number] ROOM: 507 DOCTOR: HONORIO SILVER MD BIRTHDATE: [birth year] DOS: 12/25/2016 The patient is seen at the request of Dr. Presley for renal consultation for chronic kidney disease with congestive heart failure changes. She is a limited historian, but she presented to the hospital with increasing leg edema and facial swelling from long-term. She was actually discharged, I believe, a day prior. She was reporting no chest pains or shortness of breath at baseline and currently. She has been in multiple nursing homes. She has a history of diabetes with a baseline creatinine, according to our old records, of the low 2s; in August of this year, she was 2.03 and as low as 1.77. In June of this year, she was closer to 1.4-1.8 and then in March of last year she was acutely hospitalized with sepsis and developed ATN and required the initiation of dialysis. She states she was on dialysis in March and April while at [facility]. As mentioned above, her baseline creatinine now has been in the low 2s. She presented to the hospital with a creatinine of 2.54, this is up slightly from October's 2.39 and September's 2.15. She has been stable into 2-5 range during earlier hospitalization in November and her creatinine is 2.36 yesterday and 2.65 this morning. She is on lisinopril, Lasix, did not have any other nephrotoxic medications given to her. She is on Lyrica and perhaps this increases her somnolence. She had an abdominal pelvic CT without IV contrast, which showed normal appearing kidneys, without any hydronephrosis. REVIEW OF SYSTEMS: As per the HPI, otherwise all systems reviewed and negative. PAST MEDICAL HISTORY: History of opioid addiction, diabetes, long-term neuropathy, chronic pain, Charcot joints, emphysema, COPD, sleep apnea, UTIs, hypertension, anemia. SOCIAL HISTORY: History of cocaine usage. No alcohol or tobacco reported recently. She was in long-term and hospital since last March for most of the time. FAMILY HISTORY: Negative for known dialysis dependent renal failure. PHYSICAL EXAMINATION: VITAL SIGNS: 98.3, 72, 18, 144/60 GENERAL: Awake, alert. She seems oriented, limited in terms of memory and medical reliability. She does have some periorbital edema and mild JVD elevation. LUNGS: Decreased with mild scattered wheezes and rales at the bases. CARDIOVASCULAR: Regular rate. No audible rub. No palpable lift or heave, cannot appreciate S3. ABDOMEN: Obese, soft, nontender. No rebound or guarding. EXTREMITIES: With 1-2+ edema in bilateral lower extremities. No other cyanosis or clubbing is reported. SKIN: Without diffuse rashes. NEUROLOGIC: Without abnormalities of the cranial nerves. No asterixis, no myoclonus is noted. [place], [place] REPORT OF CONSULTATION NAME: KARTHIKEYAN MIDDLETON UNIT #: [id number] ROOM: 507 DOCTOR: HONORIO SILVER MD BIRTHDATE: [birth year] LABORATORIES AND DIAGNOSTICS: Normal lactate. Creatinine as mentioned above. Electrolytes within normal limits except for potassium slightly elevated at 5.5, bicarbonate 20. CT showed some cardiomegaly and CT of the abdomen and pelvis again negative for any renal pathology except for some anasarca. ASSESSMENT AND PLAN: Acute kidney injury versus progressive chronic kidney disease, now stage 4. She had been on dialysis in the past. She was on a low dose BRIEN inhibitor. I think at this point, I would like to stop that because of her potassium elevation as well as the possibility of acute injury. Continued Lasix and diuresis is necessary given her volume overloaded state. We will follow up echocardiogram and cardiology consultation is pending. She has a history of drug abuse and would avoid any NSAIDs despite her history of opioids, short-term inpatient opioids may be the best short term necessary agent if necessary. We will assess her proteinuria and given her diabetes, I suspect that she has some underlying diabetic nephropathy, which is going to be progressive. Given her edema, follow intake and output and daily weights and monitor blood pressure control. Thank you very much for the kind consultation. We will continue to follow with you. HONORIO SILVER MD CM:CONSTR:REPORT OF CONSULTATION 1054 12/29/16 0147 interface
--- NOTE | ~2016-12-24 | EKG ---
[place], [place] ELECTROCARDIOGRAM REPORT NAME: KARTHIKEYAN MIDDLETON UNIT #: [id number] ROOM: 507 DOCTOR: ERLINDA GRAY MD BIRTHDATE: [birth year] DOS: 12/24/2016 TIME: 1541 hours. Normal sinus rhythm at 69 beats per minute. Low voltage in limb leads. Otherwise the tracing is normal. No previous tracing is available for comparison. ERLINDA GRAY MD CM:EKGRPT:ELECTROCARDIOGRAM REPORT 02 2302 ERLINDA GRAY MD
--- NOTE | ~2016-12-24 | DS ---
[place], [place] DISCHARGE SUMMARY NAME: KARTHIKEYAN MIDDLETON [facility] #: [id number] UNIT #: [id number] ROOM: 507 DOCTOR: MELISSA CORTES MD BIRTHDATE: [birth year] DOS: 12/27/2016 DIAGNOSES: 1. Anasarca. 2. Chronic renal failure, stage 4. 3. Noncompliance, poor insight to medical problems. 4. Street drug usage. 5. Diastolic dysfunction. 6. Urinary tract infection with Klebsiella pneumoniae sensitive to floxins. 7. Type 2 diabetes mellitus, insulin-dependent, poorly controlled. 8. Hyperkalemia from renal insufficiency. 9. Hypophosphatemia. 10. Mixed hyperlipidemia. 11. Chronic peripheral neuropathy. 12. Chronic pain syndrome. 13. History of Charcot joint. DISCHARGE MEDICATIONS: Sodium bicarb 650 t.i.d.; PhosLo 667 t.i.d. with meals; Cipro 250 mg daily for 10 days; Lasix 80 mg twice a day; Zoloft 50 mg daily; coverage scale with NovoLog FlexPen, blood sugars to be checked q.i.d.; Zocor 10 daily; carvedilol 40 mg daily; Lyrica 200 mg t.i.d.; Zofran 8 mg q.6h. p.r.n. for nausea; levothyroxine 25 mcg daily; lisinopril 2.5 daily; DuoNeb q.i.d. and glipizide 10 daily. HOSPITAL COURSE: This patient is very well known to us, comes in with complaints of not feeling good, increased leg edema and shortness of breath. Please refer to H and P dictated for further details. The patient was admitted, was placed on IV diuretics. Consultation with cardiology and nephrology was obtained. Echocardiogram was ordered. The patient has diuresed nicely for the last several days. Leg edema has improved, but anasarca is persistent. She also has significant facial edema, which seems to be improving slowly. Echocardiogram was done, but I do not have the report of it yet. The patient had a drug screen, was found to be positive for cocaine. I again advised the patient against street drug usage, which she has been advised many times in the past. Blood sugars have not been under control. She is not on any oral antidiabetics or insulin other than coverage scale, so glipizide was started. She was found to have hyperkalemia and hyperphosphatemia from renal failure, meds was started. The patient is overall stable. Social service has been consulted for placement back to [facility]. Klebsiella pneumoniae was noted on the urine and the patient is placed on antibiotics. Please do urine culture, comprehensive and a CBC after the completion of antibiotics. Diet is ADA 1800. Avoid caffeinated drinks and a fluid restriction to 2000 mL. [place], [place] DISCHARGE SUMMARY NAME: KARTHIKEYAN MIDDLETON UNIT #: [id number] ROOM: 507 DOCTOR: MELISSA CORTES MD BIRTHDATE: [birth year] MELISSA CORTES MD CM:DISCHARG 0 2 MELISSA CORTES MD 12/27/16 0953 interface
--- NOTE | ~2016-12-24 | WRIGHTHP ---
[place], [place] PATIENT HISTORY AND PHYSICAL EXAM NAME: KARTHIKEYAN MIDDLETON [facility] #: [id number] UNIT #: [id number] ROOM: 507 DOCTOR: MELISSA CORTES MD BIRTHDATE: [birth year] DOS: 12/24/2016 HISTORY OF PRESENT ILLNESS: The patient is 51 years old, comes in with complaints of increased leg edema and facial swelling. The patient states that she needs a tooth extraction and needs pain medications. Does not have any chest pains or palpitations, does not have any fever or chills. The patient has been a resident of [facility]. PAST MEDICAL HISTORY: Significant for: 1. History of opioid addiction. 2. Type 1 diabetes mellitus, insulin-dependent. 3. Diabetic nephropathy with kidney disease stage 4. 4. Peripheral neuropathy with chronic pain. 5. History of Charcot joint. 6. Adult failure to thrive. 7. Centrilobular emphysema with chronic respiratory failure. 8. History of multiple hospitalizations for UTI. MEDICATIONS: She is on are DuoNeb q.i.d., carvedilol CR 40 mg daily, levothyroxine 25 mcg daily except 1.5 pills on Saturday, lisinopril 2.5 daily, Lyrica 200 t.i.d., sertraline 50 daily, Zocor 10 daily and sliding scale. SOCIAL HISTORY: She has history of cocaine usage. Does not drink any alcohol. She does not smoke. PHYSICAL EXAMINATION: GENERAL: She is awake and alert and oriented. VITAL SIGNS: Graphic trend shows a pressure of 144/60, pulse of 72, respirations 18, temperature 98.3. HEENT: Face appears swollen. LUNGS: Diminished breath sounds. No wheezes, rales or rhonchi heard. HEART: Regular. ABDOMEN: Obese, soft. EXTREMITIES: Some trace evidence of edema. LABORATORY DATA: At the time of admission, lactic acid which is normal. White blood cell count is 5.6, hemoglobin 9.3, platelets 178. Protime is 11.1 with an INR of 1.1. Comprehensive, glucose 146, BUN 45, creatinine 2.36, GFR 22, potassium 5.5, chloride 115, bicarbonate 20. Chest x-ray shows cardiomegaly. CT of abdomen and pelvis is unremarkable except for a small pericardial effusion and anasarca. ASSESSMENT AND PLAN: 1. The patient comes in with shortness of breath with evidence of anasarca. IV diuretics have been added. Echocardiogram and a Cardiology consultation is obtained to rule out underlying cardiomyopathy. 2. Stage 4 kidney disease from diabetes mellitus, which is poorly controlled. Dr. Fernandes has been consulted, again diuretics have been ordered. She is already on low-dose BRIEN inhibitors, which are being continued. 3. Chronic drug addiction issues. Urine drug screen again came back positive [place], [place] PATIENT HISTORY AND PHYSICAL EXAM NAME: KARTHIKEYAN MIDDLETON UNIT #: [id number] ROOM: 507 DOCTOR: MELISSA CORTES MD BIRTHDATE: [birth year] for cocaine, which possibly increases risk of vasospasm and increases mortality. Unfortunately, I am not able to give this patient any narcotics because of the continued usage of street drugs. She is a [facility] and I am not sure how she is able to buy these drugs. 4. Type 2 diabetes mellitus, insulin-dependent. Blood sugar was 239 this morning. Continue her home meds. MELISSA CORTES MD CM:HISPHYS:PATIENT HISTORY AND PHYSICAL EXAMINATION 1350 1413 MELISSA CORTES MD 12/25/16 1413 interface
--- NOTE | ~2016-12-24 | PR ---
[place], [place] PROGRESS NOTE NAME: [facility] MIDDLETON [id number] UNIT #: [id number] ROOM: 507 DOCTOR: MELISSA CORTES MD BIRTHDATE: [birth year] DOS: SUBJECTIVE: The patient states that she is feeling better, does not have any new complaints. OBJECTIVE: VITAL SIGNS: Graphic trend shows a pressure of 160/84, pulse of 69, respirations 20, temperature 98.2. LUNGS: Diminished breath sounds, clear. HEART: Regular. ABDOMEN: Obese, soft. EXTREMITIES: Decreased edema. LABORATORY DATA: Urine output for the last 24 hours is positive balance of . The last 2 shifts the urine output has not been marked at all. ASSESSMENT AND PLAN: 1. Diastolic congestive heart failure, most likely responsible for her shortness of breath. Acute diastolic congestive heart failure. The patient is awaiting an echocardiogram and a Cardiology consultation. The patient is on high dose of diuretics and is improving clinically. Repeat chest x-ray to be ordered today. 2. Type 2 diabetes mellitus, insulin-dependent, poorly controlled from noncompliance and poor insight to medical problems. Continue her home medications. 3. Cocaine use. The patient apparently has left the shelter and has gone back home. She left on , so she has been home for less than a week. This is a repeat problem for this patient. 4. Chronic peripheral neuropathy. Continue Lyrica. Avoid narcotics. MELISSA CORTES MD CM:PNTRANS 9 9 MELISSA CORTES MD 12/26/16929 interface
--- NOTE | ~2016-12-24 | PR ---
[place], [place] PROGRESS NOTE NAME: [facility]KEYAN MIDDLETON [id number] UNIT #: [id number] ROOM: 507 DOCTOR: HONORIO SILVER MD BIRTHDATE: [birth year] DOS: 12/26/2016 SUBJECTIVE: The patient continues to report dyspnea with exertion, no reported chest pains or nausea or vomiting reported. General status remains about the same. She continues on IV Lasix and lisinopril was held. OBJECTIVE: VITAL SIGNS: Temperature 97.9, 74, 18, 144/64. GENERAL: She is awake and alert, limited reliability, seems somnolent. LUNGS: Decreased breath sounds, mild rales continue, mild wheeze continue. CARDIOVASCULAR: Rate is controlled. No audible rub. No palpable lift or heave. ABDOMEN: Soft, nontender, nondistended. No rebound or guarding. EXTREMITIES: Continued 2 to 3+ lower extremity edema. LABORATORIES AND DIAGNOSTICS: No labs today. Yesterday's creatinine is 2.65. Toxicology was positive for cocaine on admission. ASSESSMENT AND PLAN: Acute versus chronic kidney disease. The patient has had acute kidney injury that was severe before requiring dialysis, now overall has been maintaining with GFRs in the low 30s and now has dropped into the 20s. We will continue to follow and continue diuresis for CHF and volume overload. Blood pressures are acceptable for history of hypertension and volume overload. Electrolytes are acceptable at this time. We will follow up on her edema and intake and output. HONORIO SILVER MD CM:PNTRANS 1541 0005 HONORIO SILVER MD 12/29/16 0005 interface
--- NOTE | ~2016-12-24 | PR ---
[place], [place] PROGRESS NOTE NAME: KARTHIKEYAN MIDDLETON UNIT #: [id number] ROOM: 507 DOCTOR: MELISSA CORTES MD BIRTHDATE: [birth year] DOS: SUBJECTIVE: The patient is resting comfortably, does not have any new complaints. OBJECTIVE: VITAL SIGNS: Blood pressure is 162/81, pulse of 71, respirations 18, temperature 97.9. LUNGS: Clear. HEART: Regular. ABDOMEN: Obese. EXTREMITIES: Decreasing edema, but still a lot of third spacing noticed in the thighs and the lower part of the abdominal wall. LABORATORY DATA: This morning shows a white cell count of 6.7, hemoglobin 9.2, hematocrit 31.2, platelets 169. Kidney functions ____ glucose 162, BUN 52, creatinine 2.93. GFR 17. Sodium 142, potassium 4.7, chloride 112, bicarbonate 21, phosphorus 5.8. Urine culture 50,000 colonies of Klebsiella pneumoniae, which is sensitive to floxins. ASSESSMENT AND PLAN: 1. Chronic renal failure stage 4 from type 2 diabetes mellitus, poorly controlled. Kidney functions fairly stable. She may require dialysis soon. Continue meds for right now. 2. Anasarca. Echocardiogram was ordered. I do not have the results of the echocardiogram. A Cardiology consultation was also obtained. No echo report is noted. No consult note seen. The patient does not appear to be in congestive heart failure clinically. 3. Adult failure to thrive with continued usage of street drugs. The patient is encouraged to go to [facility]. She has agreed, transfer will be arranged today. 4. Urinary tract infection with Klebsiella pneumoniae. Antibiotics will be started. [place], [place] PROGRESS NOTE NAME: KARTHIKEYAN MIDDLETON UNIT #: [id number] ROOM: 507 DOCTOR: MELISSA CORTES MD BIRTHDATE: [birth year] MELISSA CORTES MD CM:PNTRANS [id number] MELISSA CORTES MD 12/27/16 1347 interface
--- NOTE | ~2016-12-24 | PR ---
[place], [place] PROGRESS NOTE [id number] UNIT #: [id number] ROOM: 507 DOCTOR: HONORIO SILVER MD BIRTHDATE: [birth year] DOS: 12/27/2016 SUBJECTIVE: Seen in followup of volume overload, CHF and CKD. The patient continues to get IV Lasix and is diuresing a little bit better overall, shortness of breath seems to be slightly improved, but still complains of it with exertion, she seems more lethargic and not participating very much with treatments and therapies. OBJECTIVE: VITAL SIGNS: 98.1, 71, 20, 138/69. GENERAL: Ill-appearing, lethargic, older appearing than her stated age. ENT: Extraocular muscles are intact. Sclerae are anicteric. Oropharynx is clear. Mucous membranes are moist. LUNGS: Without rales or wheeze. CARDIOVASCULAR: Regular rate, no audible rub. ABDOMEN: Obese, soft, nontender. No rebound, no guarding. EXTREMITIES: Without clubbing or cyanosis, continued edema persists. LABORATORY DATA AND DIAGNOSTICS: White blood cell count 6.7, hemoglobin 9.2, platelets 169, sodium 142, potassium 4.7, chloride 112, bicarbonate 21, BUN 52, creatinine 2.93, EGFR 17, glucose 162, calcium 7.9, phosphorus 5.8, magnesium 1.8. ASSESSMENT AND PLAN: Acute versus progressive chronic kidney disease. Overall, she required dialysis in March and April of this past year. She is not to that point yet, but has significant volume overload and requires continued diuresis, seems to be diuresing better today than yesterday. Continue to follow on IV Lasix or oral Lasix equivalent. No BRIEN inhibitor or ARB at this point and try to monitor and avoid nephrotoxic medications. She is close, but not requiring preESRD care and dialysis preparations at this point can be held off. She should follow up in the office closely and monitor her labs serially, is going to a [facility]. HONORIO SILVER MD CM:PNTRANS 1549 [id number] HONORIO SILVER MD 12/29/16 0419 interface
[~2016-12-24 14:55] MED LIST changes: +SODIUM BICARBO650 MG PO
[2016-12-24 15:00] VITALS: BP 145/72
--- NOTE | 2016-12-24 15:34 | NUR ---
WOUND NOTE: WOUNDS NOTED TO RIGHT LOWER LEG RIGHT MEDIAL FOOT LEFT FOOT 3RD TOE NAIL MISSING AREA IS OPEN
[2016-12-24 15:49] LABS: BASO % 0.5 % (0.0-1.0); EOS # 0.1 10*3/uL (0.0-0.4); EOS % 2.5 % (1.0-4.0); HEMATOCRIT 31.3 % (37.0-47.0); HEMOGLOBIN 9.3 g/dl (12.0-16.0); LYMPH # 0.9 10*3/uL (1.3-4.4); LYMPH % 15.6 % (27.0-41.0); MEAN CELL VOLUME 92.3 fl (81.0-99.0); MEAN CORPUSCULAR HGB 27.4 pg (27.0-31.0); MEAN CORPUSCULAR HGB CONC 29.7 g/dl (33.0-37.0); MONO # 0.6 10*3/uL (0.1-1.0); MONO % 9.8 % (3.0-9.0); NEUT % 71.1 % (47.0-73.0); PLATELET COUNT AUTOMATED 178 10*3/uL (130-400); RED BLOOD COUNT 3.39 10*6/uL (4.10-5.10); RED CELL DISTRI WIDTH 15.3 % (0-14.5); WHITE BLOOD COUNT 5.6 10*3/uL (4.8-10.8)
[2016-12-24 15:58] LABS: ACT PARTIAL THROMBO TIME 28.9 SECONDS (20.8-31.5); INTERNATIONAL NORM RATIO 1.1 (2.0-3.5)
[2016-12-24 16:05] LABS: ALBUMIN 2.5 gm/dl (3.1-4.5); ALKALINE PHOSPHATASE 103 U/L (45-117); BUN 45 mg/dl (7-24); CHLORIDE 115 mmol/L (98-107); CREATININE 2.36 mg/dL (0.55-1.02); MAGNESIUM 1.6 mg/dL (1.5-2.1); POTASSIUM 5.5 mmol/L (3.5-5.1); SGOT/AST 16 IU/L (3-35); SGPT/ALT 17 U/L (12-78); SODIUM 141 mmol/L (136-145); TOTAL PROTEIN 6.9 gm/dL (6.4-8.2)
[2016-12-24 16:08] LABS: TROPONIN I < 0.015 ng/ml (<0.045)
[2016-12-24 18:20] VITALS: BP 153/76
--- NOTE | 2016-12-24 18:20 | NUR ---
A 51, admitted to , under the services of MELISSA Patten MD with a diagnosis of DYSPNEA ON EXERTION, CHF, AND PLEURITIC CHEST PAIN. Chief complaint is SHORTNESS OF BREATH. Patient arrived via bed from ER. Monitor applied. Initial assessment completed. Vital signs taken and recorded. MELISSA PATTEN MD notified of admission to the unit. Orders received. See assessment for past medical history, medications and allergies. Patient and/or family oriented to unit. [facility] policy reviewed. Clothing/patient valuable form completed. ADRIANA VILA
[2016-12-24 18:30] LABS: BILIRUBIN NEGATIVE (NEGATIVE); BLOOD 3+ (NEGATIVE); CLARITY CLEAR (CLEAR); COLOR YELLOW (YELLOW); GLUCOSE 1+ (NEGATIVE); KETONE NEGATIVE (NEGATIVE); LEUKO ESTERASE NEGATIVE (NEGATIVE); NITRITE NEGATIVE (NEGATIVE); SPECIFIC GRAVITY 1.025 (1.005-1.030); UROBILINOGEN 0.2 E.U./dl (0.2-1.0)
[2016-12-24 18:38] LABS: BACTERIA 4+; EPITHELIAL CELLS 15-20; URINE AMPHETAMINES < 1000 (1000ng/ml); URINE BARBITURATES < 200 (200ng/ml); URINE BENZODIAZEPINES < 200 (200ng/ml); URINE CANNABINOIDS (THC) < 50 (50ng/ml); URINE COCAINE > 300 (300ng/ml); URINE METHADONE < 300 (300ng/ml); URINE OPIATES < 300 (300ng/ml); WBC 31-40 wbc/hpf (0-5)
[2016-12-24 18:40] LABS: URINE PHENCYCLIDINE < 25 (25ng/ml)
--- NOTE | 2016-12-24 18:53 | NUR ---
MEDICATIONS REVIEWED WITH PATIENT. PATIENT AWARE OF MEDICATION DOSAGE AND TIMES TAKEN
[2016-12-24 20:00] VITALS: BP 166/76
--- NOTE | 2016-12-24 20:30 | NUR ---
PT SITTING UP IN BED. RESP-EASY AND REGULAR. C/O NAUSEA, MEDICATED WITH ZOFRAN PO PER PRN ORDER, SEE EMAR. CALL LIGHT IN REACH.
--- NOTE | 2016-12-24 21:02 | NUR ---
CALLED DR. CORTES REGARDING PT REQUESTINTG PAIN MEDICATION WANTING FARGO. PER DR. CORTES TYLENOL ORDERED.
--- NOTE | 2016-12-24 21:55 | NUR ---
PT [id number], SEE EMAR. ALSO MEDICATED WITH TYLENOL TWO TAB PO PER PRN ORDER, SEE EMAR. C/O LEG, HAND AND TOOTHACHE, RATES PAIN 8 ON PAIN SCALE. STATES NAUSEA MED HELPED. CALL LIGHT IN REACH.
--- NOTE | 2016-12-24 23:00 | NUR ---
PAIN MEDICATION EFFECTIVE, PAIN SUBSIDED, 06/08
[2016-12-25] VITALS: BP 113/64
[2016-12-25 04:00] VITALS: BP 113/64
--- NOTE | 2016-12-25 04:13 | NUR ---
PATIENT WITHOUT COMPLAINTS DURING THE EVENING. RESPIRATIONS EASY, CLEAR. PATIENT WITH GUERA. LOWER EXT. EDEMA. NO PROBLEMS VOICED.
--- NOTE | 2016-12-25 06:28 | NUR ---
PATIENT REQUESTED TYLENOL FOR A TOOTHACHE. TYLENOL GIVEN PER PRN ORDER. PAIN 8/10
[2016-12-25 07:02] LABS: CREATININE 2.65 mg/dL (0.55-1.02); POTASSIUM 5.2 mmol/L (3.5-5.1)
[2016-12-25 07:22] LABS: BASO # 0.1 10*3/uL (0.0-0.1); BASO % 0.9 % (0.0-1.0); EOS # 0.2 10*3/uL (0.0-0.4); EOS % 2.9 % (1.0-4.0); HEMATOCRIT 32.4 % (37.0-47.0); HEMOGLOBIN 9.4 g/dl (12.0-16.0); LYMPH # 1.2 10*3/uL (1.3-4.4); LYMPH % 18.2 % (27.0-41.0); MEAN CELL VOLUME 93.4 fl (81.0-99.0); MEAN CORPUSCULAR HGB 27.1 pg (27.0-31.0); MEAN PLATELET VOLUME 11.1 fl (9.6-12.3); MONO # 0.8 10*3/uL (0.1-1.0); MONO % 11.6 % (3.0-9.0); NEUT # 4.4 10*3/uL (2.3-7.9); NEUT % 66.1 % (47.0-73.0); PLATELET COUNT AUTOMATED 185 10*3/uL (130-400); RED BLOOD COUNT 3.47 10*6/uL (4.10-5.10); RED CELL DISTRI WIDTH 15.6 % (0-14.5); WHITE BLOOD COUNT 6.6 10*3/uL (4.8-10.8)
--- NOTE | 2016-12-25 07:28 | NUR ---
Electrical Electronics Technician in to talk to patient. Patient states lives at [address] with A FRIEND. There are 18 steps in the home. Physician: DR CORTES Pharmacy: [facility] Home health services: [facility] NURSE Patient's level of ADLs: MINIMAL ASSIST Patient has working utilities: YES DME: W/C, NEB, O2 FROM [employer] Follow-up physician's appointment after d/c: PREFERS TO MAKE HER OWN APPT Does patient want to access PORTAL?: Discharge plan HOME. [facility] DOES NOT WANT SNF STAY AT THIS TIME
[2016-12-25 08:00] VITALS: BP 144/60
--- NOTE | 2016-12-25 08:36 | NUR ---
ANSWERING SERVICE WAS NOTIFIED OF DR. gloria ALVARADO. RESPONSE OF NOTIFICATION WAS ok i will let them know. PAUL BRUNSON
--- NOTE | 2016-12-25 08:52 | NUR ---
ATTEMPT MADE TO ACCESS MEDIPORT PER DR CORTES REQUEST. UNSUCCESSFUL. CALL PLACED TO NOTIFY HER.
--- NOTE | 2016-12-25 08:58 | NUR ---
SPOKE TO DR CORTES REGARDING PT MEDIPORT AND SHE ASKED ME TO CALL RADIOLOGY AND ASK IF DR HOUSTON COULD TAKE A LOOK AT IT.
--- NOTE | 2016-12-25 09:23 | NUR ---
PHYSICIAN WAS NOTIFIED OF DR. GRAY CONSULT. RESPONSE OF NOTIFICATION WAS OK I WILL SEE HER THIS MORNING. PAUL BRUNSON
--- NOTE | 2016-12-25 13:02 | NUR ---
PT C/ TOOTHACHE OF 12/06. TYLENOL GIVEN AT THIS TIME. WILL CONT TO MONITOR. CALL LIGHT IN REACH.
--- NOTE | 2016-12-25 14:00 | NUR ---
DR SILVER IN TO SEE PT.
--- NOTE | 2016-12-25 14:02 | NUR ---
TYLENOL EFF FOR C/O HEADACHE. WILL CONT TO MONITOR. CALL LIGHT IN REACH.
--- NOTE | 2016-12-25 15:14 | NUR ---
PER IR ORDER NEEDED FOR A VASCULAR LAB PROCEDURE FOR DR HOUSTON TO ACCESS MEDIPORT. I PLACED CALL TO DR CORTES AND SHE GAVE ME THE ORDER FOR A VASCULAR LAB PROCEDURE.
[2016-12-25 16:00] VITALS: BP 128/61
--- NOTE | 2016-12-25 16:07 | NUR ---
PER DR SILVER STOP LISINOPRIL, AND TO KEEP PATIENT ON THE LASIX DOSE THAT SHE IS CURRENTLY ON. I ALSO NOTIFIED HIM THAT HER K WAS 5.2 AND SHE IS CURRENTLY NOT ON ANY POTASSIUM AND HE SAID THATS FINE WE WILL LEAVE THE POTASSIUM ALONE AT THIS TIME.
--- NOTE | 2016-12-25 16:34 | NUR ---
PT RETURNED FROM IR WITH MEDIPORT ACCESSED.
--- NOTE | 2016-12-25 19:43 | NUR ---
Medicated with Tylenol po prn for c/o toothache. Will monitor effectiveness. Call light within reach.
[2016-12-25 20:00] VITALS: BP 158/78
[2016-12-26] VITALS: BP 177/89
--- NOTE | 2016-12-26 00:27 | NUR ---
24 HR chart check completed.
[2016-12-26 00:30] VITALS: BP 160/84
--- NOTE | 2016-12-26 00:48 | NUR ---
Medicated with Zofran po prn for nausea. Will monitor effectiveness. Call light within reach.
--- NOTE | 2016-12-26 05:40 | NUR ---
Medicated with Tylenol po prn for c/o toothache. Will monitor effectiveness. Call light within reach.
[2016-12-26 08:00] VITALS: BP 144/64
[2016-12-26 12:00] VITALS: BP 125/66
[2016-12-26 16:00] VITALS: BP 125/80
--- NOTE | 2016-12-26 19:26 | NUR ---
Medicated with Tylenol po prn for toothache. Will monitor effectiveness. Call light within reach.
[2016-12-26 20:00] VITALS: BP 186/84
--- NOTE | 2016-12-26 20:31 | NUR ---
Patient resting quietly in bed watching TV. States "toothache is gone at this time." Tylenol effective. Will continue to monitor. Call light within reach.
[2016-12-27] VITALS: BP 162/81
--- NOTE | 2016-12-27 00:27 | NUR ---
24 HR chart check completed.
[2016-12-27 06:28] LABS: BASO % 0.4 % (0.0-1.0); EOS # 0.2 10*3/uL (0.0-0.4); EOS % 2.8 % (1.0-4.0); HEMATOCRIT 31.2 % (37.0-47.0); HEMOGLOBIN 9.2 g/dl (12.0-16.0); LYMPH # 1.2 10*3/uL (1.3-4.4); LYMPH % 17.8 % (27.0-41.0); MEAN CELL VOLUME 92.6 fl (81.0-99.0); MEAN CORPUSCULAR HGB 27.3 pg (27.0-31.0); MEAN CORPUSCULAR HGB CONC 29.5 g/dl (33.0-37.0); MEAN PLATELET VOLUME 11.6 fl (9.6-12.3); MONO # 0.8 10*3/uL (0.1-1.0); MONO % 11.2 % (3.0-9.0); NEUT # 4.5 10*3/uL (2.3-7.9); NEUT % 67.4 % (47.0-73.0); PLATELET COUNT AUTOMATED 169 10*3/uL (130-400); RED BLOOD COUNT 3.37 10*6/uL (4.10-5.10); RED CELL DISTRI WIDTH 15.2 % (0-14.5); WHITE BLOOD COUNT 6.7 10*3/uL (4.8-10.8)
[2016-12-27 06:39] LABS: ALBUMIN 2.5 gm/dl (3.1-4.5); CREATININE 2.93 mg/dL (0.55-1.02); MAGNESIUM 1.8 mg/dL (1.5-2.1); PHOSPHOROUS 5.8 mg/dL (2.5-4.9); POTASSIUM 4.7 mmol/L (3.5-5.1)
[2016-12-27] MEDS ORDERED: CIPRO500 MG PO (07:55)
[2016-12-27] MEDS ORDERED: SODIUM BICARBO650 MG PO (07:55)
[2016-12-27] MEDS ORDERED: LASIX80 MG PO (07:57)
[2016-12-27 08:00] VITALS: BP 138/69
[2016-12-27] MEDS ORDERED: GLUCOTROL10 MG PO (08:00)
--- NOTE | 2016-12-27 08:18 | NUR ---
PATIENT LYING IN BED. RESPIRATIONS EASY/REGULAR. NO SXS OF DISTRESS. NO VOICED COMPLAINTS AT THIS TIME. PLEASANT/COOPERATIVE WITH CARE. CALL LIGHT IS IN REACH. WILL MONITOR.
--- NOTE | 2016-12-27 08:25 | NUR ---
MEDICATED WITH PRN TYLENOL ORDERD FOR C/O A TOOTHACHE RATED A 7.
--- NOTE | 2016-12-27 08:43 | NUR ---
Patient asked to be referred to [facility]. Contacted [facility] and faxed referral. VO stated patient is now to the point she would have to sign over her SS check to remain at the facility. Discussed this with the patient and she agreed. She stated she gets her check tomorrow direct deposit and she is the only one who has access. This was relayed to [facility]. Waiting on acceptance.
--- NOTE | 2016-12-27 08:45 | NUR ---
hospital exemption completed online in [facility] system.
--- NOTE | 2016-12-27 09:30 | NUR ---
PATIENT STATES THE TYLENOL FROM EARLIER WAS EFFECTIVE FOR HER TOOTHACHE. NO FURTHER COMPLAINTS AT THIS TIME. WILL MONITOR.
--- NOTE | 2016-12-27 10:32 | NUR ---
PHYSICAL THERAPY PAtient evaluated on 5, full evaluation to follow. Continue with PT as per plan of care with fall, poor activity tolerance and acute debility precautions. Will require SNF for impaired mobility in order to return to home at prior (i) PLOF. PAtient is moderate complexity via chart review, tests and evaluation : 61804. Thank you for this referral. Fatoumata Jose,PT
[2016-12-27 12:00] VITALS: BP 134/78
--- NOTE | 2016-12-27 13:26 | NUR ---
Patient resting in bed watching tv. no complaints at this time. awaiting placement at [facility]. call light in reach.
--- NOTE | 2016-12-27 13:41 | NUR ---
[facility] this patient but required a PASS/RR and a medicaid LOC be completed and approved. Both were completed/approved and faxed to the facility. Waiting on [facility] to give ok for patient to go today since she is discharged. Will follow
--- NOTE | 2016-12-27 14:37 | NUR ---
patient is discharged to [facility], transportation scheduled for 4:15 pm with [facility], nursing and family notified.
[2016-12-27 16:00] VITALS: BP 128/74
--- NOTE | 2016-12-27 16:30 | NUR ---
PATIENT DISCHARGED. VERBALIZED UNDERSTANDING OF DISCHARGE INSTRUCTIONS. IV AND MEDIPORT ACCESS REMOVED AND PRESSURE DRESSING APPLIED. HEART MONITOR REMOVED AND RETURNED TO FLOOR.
== END 2016-12-27 16:30 | disposition other institution (70) | DRG 291 ==
LOC: ED 14:55 → 5E 17:13 → EDHOLD 17:13 → 5E 17:17
PROVIDERS: Emergency Medicine; Internal Medicine Nephrology; ADMIT Internal Medicine
DX: I13.0 Hypertensive heart and chronic kidney disease with heart failure and stage 1 through stage 4 chronic kidney disease, or unspecified chronic kidney disease (principal); I50.43 Acute on chronic combined systolic (congestive) and diastolic (congestive) heart failure; E43 Unspecified severe protein-calorie malnutrition; A52.16 Charcot's arthropathy (tabetic); E11.22 Type 2 diabetes mellitus with diabetic chronic kidney disease; N17.9 Acute kidney failure, unspecified; E11.42 Type 2 diabetes mellitus with diabetic polyneuropathy; N18.4 Chronic kidney disease, stage 4 (severe); E11.65 Type 2 diabetes mellitus with hyperglycemia; F14.20 Cocaine dependence, uncomplicated; N39.0 Urinary tract infection, site not specified; G47.30 Sleep apnea, unspecified; J44.9 Chronic obstructive pulmonary disease, unspecified; E83.39 Other disorders of phosphorus metabolism; E78.2 Mixed hyperlipidemia; G89.4 Chronic pain syndrome; F41.1 Generalized anxiety disorder; E87.5 Hyperkalemia; R62.7 Adult failure to thrive; B96.1 Klebsiella pneumoniae [K. pneumoniae] as the cause of diseases classified elsewhere; Z91.19 Patient's noncompliance with other medical treatment and regimen; Z79.4 Long term (current) use of insulin; Z88.1 Allergy status to other antibiotic agents; Z91.041 Radiographic dye allergy status; Z79.899 Other long term (current) drug therapy; Z80.0 Family history of malignant neoplasm of digestive organs

== ENCOUNTER → 2017-02-25 | Outpatient (CLI) | payer MEDICARE, MEDICAID ==
[~2017-02-25] MED LIST changes: +GLUCOTROL10 MG PO; +LASIX80 MG PO
[2017-02-25 08:49] LABS: HEMATOCRIT 32.2 % (37.0-47.0); HEMOGLOBIN 10.1 g/dl (12.0-16.0)
[2017-02-25 09:26] LABS: CREATININE 3.93 mg/dL (0.55-1.02); PHOSPHOROUS 6.5 mg/dL (2.5-4.9); TOTAL PROTEIN 7.9 gm/dL (6.4-8.2)
[2017-02-25 09:37] LABS: FERRITIN 129.9 ng/mL (10.0-291.0); VITAMIN D, 25-HYDROXY 17.1 ng/mL (30-100)
[2017-02-25 09:38] LABS: PTH INTACT 748.3 pg/mL (14.0-72.0)
[2017-02-26 05:11] LABS: HEPATITIS B SURFACE AG Negative (Negative)
[2017-02-26 06:13] LABS: TOTAL PROTEIN, SERUM 6.8 g/dL (6.0-8.5)
[2017-02-26 08:09] LABS: COMPLEMENT C4 001834 41 mg/dL (14-44); RHEUMATOID ARTHRITIS FACTOR <10.0 IU/mL (0.0-13.9)
[2017-02-26 17:05] LABS: A/G RATIO 0.8 (0.7-1.7); ALBUMIN 3.1 g/dL (2.9-4.4); ALPHA-1-GLOBULIN 0.2 g/dL (0.0-0.4); ALPHA-2-GLOBULIN 0.8 g/dL (0.4-1.0); BETA GLOBULIN 1.2 g/dL (0.7-1.3); GAMMA GLOBULIN 1.4 g/dL (0.4-1.8); GLOBULIN, TOTAL 3.7 g/dL (2.2-3.9); M-SPIKE Not Observed g/dL (Not Observed)
== END | disposition home or self-care (01) ==
LOC: LAB 07:45
PROVIDERS: Internal Medicine Nephrology
DX: N18.4 Chronic kidney disease, stage 4 (severe) (principal); R53.83 Other fatigue; Z79.899 Other long term (current) drug therapy

== ENCOUNTER 2017-03-07 18:14 | Inpatient (IN) | payer MEDICARE, MEDICAID ==
[~2017-03-07] VITALS: Ht 162.5 cm; Wt 111.1 kg
--- NOTE | ~2017-03-07 | PR ---
[place], [place] PROGRESS NOTE NAME: [facility]AN MID[facility]TON [id number] UNIT #: [id number] ROOM: 406 DOCTOR: MAIA AGUILAR MD BIRTHDATE: [birth year] DOS: 03/10/2017 SUBJECTIVE: The patient is feeling about the same. OBJECTIVE: VITAL SIGNS: Blood pressure 134/72, heart rate of 67 beats per minute, breathing 20 times per minute, temperature 98 degrees Fahrenheit. GENERAL APPEARANCE: The patient is alert and oriented x 3, in no visible distress. Has obesity. HEENT AND NECK: Exam within normal limits. CARDIOVASCULAR SYSTEM: Heart rate is regular in rate and rhythm. S1 and S2 normally audible. LUNGS: Clear to auscultation. ABDOMEN: Soft, nontender. No obvious organomegaly. Bowel sounds are present. EXTREMITIES: Without significant cyanosis. 2+ leg and pedal edema. IMPRESSION: 1. The patient has acute over chronic kidney failure, stage 5, being followed by Nephrology who have not decided to start dialysis so far. 2. Uncontrolled type 2 diabetes mellitus with poor compliance with diet. Blood sugars are much better controlled presently. 3. Anemia related to chronic kidney disease and chronic kidney failure. 4. Chronic diastolic type congestive heart failure and related to kidney failure. MAIA AGUILAR MD CM:PNTRANS [phone] MAIA AGUILAR MD 03/11/17 0122 interface
--- NOTE | ~2017-03-07 | PR ---
[place], [place] PROGRESS NOTE NAME: KARTHIKEYAN MIDDLETON [facility] #: [id number] UNIT #: [id number] ROOM: 406 DOCTOR: HONORIO SILVER MD BIRTHDATE: [birth year] DOS: 03/10/2017 SUBJECTIVE: She is seen in followup of CKD. She is doing well and diuretics were increased. Overall volume overload continues. She is eating and drinking without any significant restriction. From a standpoint of symptoms, she is not reporting shortness of breath, chest pains. PHYSICAL EXAMINATION: VITAL SIGNS: Her blood pressure is 124/60 to 167/87, afebrile, heart rates in the 60s, respiratory rate 18, saturation was 99% on 4 liters nasal cannula. GENERAL: She is awake, alert and oriented without acute distress. HEENT: Extraocular muscles are intact. Sclerae are anicteric. NECK: Supple with positive JVD. LUNGS: Decreased without audible rales currently. CARDIOVASCULAR: Regular rate. No audible rub. Lower extremity edema was 2+ at least. ABDOMEN: Morbid obesity limits internal visceral examination. No CVA tenderness. LABORATORIES AND DIAGNOSTICS: Sodium 140, potassium 4.7, chloride 103, bicarb 27, BUN 94, creatinine 3.88, down slightly again, calcium 7.1, phosphorus 7.8, magnesium 2.1, albumin 2.9. ASSESSMENT AND PLAN: Progressive chronic kidney disease with some acute injury on top, over this is due to the end-stage diabetic disease, metolazone was held, but she remains volume overloaded and I increased her Lasix from 80 b.i.d. to 120 b.i.d. She has metabolic acidosis, on bicarbonate, use caution with current dose of Lyrica, but seems to be tolerating it okay, but watch when other opioids are on top of that. She is also an glipizide which may need to be monitored for hypoglycemia with worsening renal function, probably best to convert her to a long acting insulin soon. Avoid metformin. In terms of her electrolyte abnormalities, she had mild hypocalcemia with hyperparathyroidism secondary to chronic kidney disease. I started her on PhosLo as well as she was given calcium already. She is vitamin D deficient and we will start her on replacement for that. Potassium is controlled. I would avoid salt substitutes in her because they tend to contain a lot of potassium and while avoid her having hyperkalemia. I stopped her potassium supplement since now we are not using dual diuretic therapy. The main thing which she needs is close followup with Nephrology and she was following with Dr. Taveras and I recommend a vascular appointment CARMELITA to create an arteriovenous fistula for permanent dialysis access as I do think that she will require this probably in the next several months if not sooner and we would want to avoid a tunneled dialysis catheter if possible. I recommended that she keep close contact with Dr. Taveras upon discharge and hopefully the [place] [facility] where she goes can keep up on this as well. [place], [place] PROGRESS NOTE NAME: KARTHIKEYAN MIDDLETON UNIT #: [id number] ROOM: 406 DOCTOR: HONORIO SILVER MD BIRTHDATE: [birth year] HONORIO SILVER MD CM:PNLISETH [phone] HONORIO SILVER MD 03/11/17 0003 interface
--- NOTE | ~2017-03-07 | PR ---
[place], [place] PROGRESS NOTE NAME: [facility] MIDDLETON [facility] [id number] UNIT #: [id number] ROOM: 406 DOCTOR: MAIA AGUILAR MD BIRTHDATE: [birth year] DOS: 03/09/2017 SUBJECTIVE: The patient is still feeling swollen with abdominal distention and some shortness of breath. PHYSICAL EXAMINATION: GENERAL APPEARANCE: The patient is alert and oriented x 3, in no visible distress. VITAL SIGNS: Blood pressure 153/86, heart rate of 65 beats per minute, breathing 20 times per minute, temperature 98 degrees Fahrenheit. HEENT AND NECK: Exam within normal limits. CARDIOVASCULAR SYSTEM: Heart rate is regular in rate and rhythm. S1 and S2 normally audible. LUNGS: Clear to auscultation. ABDOMEN: Soft, nontender. No obvious organomegaly. Bowel sounds are present. Obesity and fluid volume overload. EXTREMITIES: Without significant cyanosis or edema. IMPRESSION: 1. The patient has acute or chronic kidney failure, stage 5 chronic kidney disease, being treated conservatively by nephrology and hydrated with IV fluids. 2. Chronic diastolic type congestive heart failure also related to chronic kidney disease. 3. Anemia of chronic disease and chronic kidney failure. 4. Type 2 diabetes mellitus, uncontrolled, poor compliance with diet. 5. Noncompliant patient. 6. Morbid obesity. The patient is working with dietary. MAIA AGUILAR MD CM:PNTRANS [phone] MAIA AGUILAR MD 03/09/17 0179 interface
--- NOTE | ~2017-03-07 | DS ---
[place], [place] DISCHARGE SUMMARY NAME: KARTHIKEYAN MIDDLETON [facility] #: [id number] UNIT #: [id number] ROOM: 406 DOCTOR: MAIA AGUILAR MD BIRTHDATE: [birth year] DOS: 03/11/2017 DISCHARGE DIAGNOSES: 1. End-stage kidney disease stage V, acute over chronic kidney failure, evaluated by Nephrology. 2. Chronic diastolic type congestive heart failure and also related to chronic kidney disease, which is making the congestive heart failure worse. 3. Anemia related to chronic kidney disease. 4. Uncontrolled type 2 diabetes mellitus. 5. Chronic hyperkalemia secondary to chronic kidney disease. 6. Chronic hypophosphatemia. 7. Mixed hyperlipidemia. 8. Chronic pain syndrome. 9. Noncompliance with treatment and poor insight into medical problems. HOSPITAL COURSE: The patient was sent over from alf to [facility] with elevated BUN and creatinine. The patient was found to be in acute over chronic kidney failure, acute tubular necrosis. The patient was started on treatment with hydration and Nephrology was consulted to consider hemodialysis. The patient is very noncompliant and requires hemodialysis to even treat her congestive heart failure. So far, nephrologists are evaluating the patient for hemodialysis. Chronic fluid volume overload and chronic diastolic type CHF, made worse by chronic kidney disease. The patient diuresed with Lasix. Type 2 diabetes mellitus, uncontrolled from poor compliance with diet. Sugars have been better regulated recently. Diabetic nephropathy related to uncontrolled diabetes mellitus. Anemia related to chronic disease and chronic kidney failure. Stool for occult blood was negative. The patient appears to have achieved maximum benefit from this admission and will be discharged back to alf after clearance from Nephrology, who will continue to follow her at the alf and consider hemodialysis when necessary. The patient is presently not short of breath. She has generalized weakness and she has worked with Physical Therapy. LABORATORY DATA: BUN and creatinine of 97 and 3.8 and stable. Normal serum electrolytes. Moderate protein calorie malnutrition with an albumin level of 2.8. Hemoglobin of 8.6, normal platelets. Venous Doppler of the lower extremities did not show any deep vein thrombosis. The patient has chronic leg and pedal edema. Chest x-ray did not show any acute congestive heart failure and showed some chronic changes. [place], [place] DISCHARGE SUMMARY NAME: KARTHIKEYAN MIDDLETON UNIT #: [id number] ROOM: 406 DOCTOR: LAUREN BERNAL,MAIA Gould BIRTHDATE: [birth year] DISCHARGE MANAGEMENT: Loperamide 2 mg daily p.r.n. for diarrhea, furosemide 120 mg b.i.d., calcium acetate 1334 mg 3 times a day with meals, vitamin D 4000 units daily orally, Coreg 12.5 mg b.i.d., sodium bicarbonate 650 mg t.i.d. Ask chief mechanical engineer, Dr. Jayy Villasenor to follow the patient for kidney failure. Zoloft 50 mg a day, glipizide 10 mg daily, DuoNeb every 4 hours as needed for shortness of breath, simvastatin 10 mg a day, ondansetron sublingual every 6 hours as needed for nausea, vomiting, Vicodin 5/325 mg t.i.d. p.r.n. for pain, pregabalin 200 mg 3 times a day. MAIA AGUILAR MD CM:CLIFTON [phone] MAIA AGUILAR MD 03/11/17 1230 interface
--- NOTE | ~2017-03-07 | WRIGHTHP ---
[place], [place] PATIENT HISTORY AND PHYSICAL EXAM NAME: KARTHIKEYAN MIDDLETON [facility] #: [id number] UNIT #: [id number] ROOM: 406 DOCTOR: MAIA AGUILAR MD BIRTHDATE: [birth year] DOS: 03/07/2017 HISTORY OF PRESENT ILLNESS: The patient is a 51-year-old female with a past medical history of: 1. Chronic kidney disease stage 4. 2. Noncompliance with poor insight to medical problems. 3. Chronic diastolic type congestive heart failure. 4. Type 2 diabetes mellitus. 5. Chronic hyperkalemia related to the chronic kidney disease. 6. Chronic Hypophosphatemia. 7. Mixed hyperlipidemia. 8. Chronic peripheral neuropathy. 9. Chronic pain syndrome. 10. History of Charcot joint. The patient presented to the Emergency Department with elevation of BUN and creatinine and increasing shortness of breath. The patient was seen in the Emergency Department and found to have acute diastolic type congestive heart failure and acute over chronic kidney failure. The patient was admitted to [facility] and Nephrology consult was obtained. The patient's BUN and creatinine had increased and she was complaining of increased swelling all over along with some increased shortness of breath. No chest pain, no dizziness or fainting episodes. No other GI or urinary symptoms. REVIEW OF SYSTEMS: LUNGS: Increasing shortness of breath. GASTROINTESTINAL: No vomiting, diarrhea, constipation, but the patient does have some chronic nausea. CARDIOVASCULAR: Increased shortness of breath. FAMILY HISTORY: Noncontributory. SOCIAL HISTORY: The patient is nicotine smoke dependence, substance abuse. HOME MEDICATIONS: Coreg, potassium, sodium bicarbonate, Zoloft, furosemide, glipizide, simvastatin, DuoNebs, Lyrica. ALLERGIES: KNOWN ALLERGIES TO IODINE AND BIAXIN. PHYSICAL EXAMINATION: GENERAL: Alert and oriented x 3, no visible distress. Morbidly obese, 1-2+ leg and pedal edema. LABORATORY DATA: BUN and creatinine elevation to 101 and 4.2, hemoglobin 8.6. IMPRESSION: 1. The patient has acute stage 5 kidney failure for which Nephrology has been consulted. The patient is being checked for urinary retention with postvoid residual volume. We will monitor kidney function on daily basis. The patient may require hemodialysis. 2. Acute over chronic diastolic type congestive heart failure related to kidney [place], [place] PATIENT HISTORY AND PHYSICAL EXAM NAME: [facility] [id number] UNIT #: [id number] ROOM: 406 DOCTOR: MAIA AGUILAR MD BIRTHDATE: [birth year] failure, although the chest x-rays shows no acute change. 3. Anemia of chronic disease and chronic kidney failure. 4. Uncontrolled type 2 diabetes mellitus. Blood sugars are being monitored and treated as necessary. The patient will be kept on no concentrated sweet diet. 5. Poor compliance with treatment and in relation to her health and medications. The patient's home medications were ordered, lisinopril, levothyroxine, Coreg, Zofran, insulin. Phoslo, sodium bicarbonate, Zocor. MAIA AGUILAR MD CM:HISPHYS:PATIENT HISTORY AND PHYSICAL EXAMINATION [phone] MAIA AGUILAR MD 03/08/172051 interface
--- NOTE | ~2017-03-07 | PR ---
[place], [place] PROGRESS NOTE NAME: KARTHIKEYAN MIDDLETON [facility] #: [id number] UNIT #: [id number] ROOM: 406 DOCTOR: HONORIO SILVER MD BIRTHDATE: [birth year] DOS: 03/09/2017 SUBJECTIVE: The patient was seen in followup of acute on chronic kidney injury with volume overload and diabetes. She is still stating that she is swollen, blood pressures in the 140s-150s, mostly in the 150s. She is afebrile. Heart rates in the 60s and 70s, respiratory rate 18-20, saturations 95% on 4 liters. She is normally on 2 liters nasal cannula. She did not report any nausea or vomiting. She is eating and drinking. No reported excessive salt intake and was living at a [facility] facility prior to admission. PHYSICAL EXAMINATION: GENERAL: Obese, older appearing than her stated age female lying in bed. Nasal cannula oxygen in place. HEENT: Extraocular muscles intact. Sclerae are anicteric. Mild periorbital edema. NECK: Supple, with positive distended neck veins. LUNGS: Decreased breath sounds at the bases. Mild wheeze. CARDIOVASCULAR: Regular rate. No audible rub. ABDOMEN: Obese, soft, nontender. No rebound, no guarding. No CVA tenderness. Morbid obesity, limits internal visceral examination or bruits evaluation. EXTREMITIES: 2+ lower extremity edema. LABORATORIES AND DIAGNOSTICS: Sodium 141, potassium 4.6, chloride 105, bicarbonate 27, BUN 97, creatinine 4.09, EGFR 11, glucose 148, calcium 6.8, albumin 2.8, phosphorus 7.8, magnesium 2.3. Urinalysis with positive blood, protein 2+. Prior serologies were reviewed and were negative except for low titer MAX positivity, normal complements. These were done on 02/25. SPEP and immunofixation were also negative. Interestingly, she had a positive cocaine screen back in November. Her last A1c was 8.9 in August. CBC shows white blood cell count of 6.9, hemoglobin 8.6, platelet count 147 yesterday, with no significant eosinophilia. Lower extremity Dopplers were negative for DVT. Past chest x-ray was also reviewed and negative for acute pneumonia. She has a left port in place. ASSESSMENT AND PLAN: 1. Progressive chronic kidney disease with acute kidney injury on top. She did not appear to have a significant postvoid residual. The likelihood in this woman of progressive renal failure to the point of end-stage renal disease is high likely secondary to diabetic kidney disease. Her metolazone was held to avoid excessive volume changes, but I do think that she is volume overloaded in general and with her blood pressure still being slightly on the elevated side and in an effort to avoid BRIEN inhibitor or ARB acutely, I will increase her Lasix to 120 mg from 80 mg b.i.d. She also has metabolic acidosis and is already on sodium bicarbonate. I would use caution with the current dose of Lyrica, but she seems to be tolerating it fairly well, but monitor for any neurologic and metabolic accumulation of it, especially when taking hydrocodone along with it. She is also on glipizide, which will need to follow for any possible hypoglycemia with worsening renal function as well. More than likely, I will recommend that she convert to long-acting insulin at this point given her worsening renal failure. [place], [place] PROGRESS NOTE NAME: KARTHIKEYAN MIDDLETON UNIT #: [id number] ROOM: 406 DOCTOR: HONORIO SILVER MD BIRTHDATE: [birth year] 2. Electrolytes , mild hypocalcemia. She does have hyperparathyroidism, likely secondary to chronic kidney disease. She was given 1 dose of IV calcium earlier today. I will place her on PhosLo as well as replace her vitamin D deficiency, which she had noted from January with 50,000 weekly starting today. Her potassium is well controlled and since we are stopping the metolazone, I will stop her potassium 10 mEq daily to avoid hyperkalemia. She needs a long-term dialysis access creation, namely an AV fistula. This will need to be done expeditiously as an outpatient. We will continue to follow. Thank you very much. Please call if any questions. HONORIO SILVER MD CM:PNTRANS [id number] HONORIO SILVER MD 03/09/17 1503 interface
[~2017-03-07 18:14] MED LIST changes: +NOVOLOG FL100 UNIT/1 SQ; -NOVOLOG FLEX100 U/ML SC
--- NOTE | 2017-03-07 18:16 | NUR ---
PER EMS, PER [facility] PATIENT BUN 110. STAFF AT [facility] UNABLE TO ACCESS MEDIPORT OR INITIATE IV.
[2017-03-07] MEDS ORDERED: AMOXICILLIN500 M2 PO (18:19)
[2017-03-07 18:20] VITALS: BP 152/69
--- NOTE | 2017-03-07 18:29 | NUR ---
PROVIDER AT BEDSIDE AND PATIENT NOW REPORTS UPPER ABDOMINAL PAIN FROM HER SKIN STRETCHING AND PAIN TO RIGHT LEG.
--- NOTE | 2017-03-07 19:15 | NUR ---
MULTIPLE ATTEMPTS TO INITIATE AN IV UNSUCCESSFUL. MEDIPORT UNABLE TO BE ACCESSED, NOT IN CORRECT PLACE.
[2017-03-07 19:22] LABS: BASO % 0.5 % (0.0-1.0); EOS # 0.3 10*3/uL (0.0-0.4); EOS % 3.4 % (1.0-4.0); HEMATOCRIT 28.8 % (37.0-47.0); LYMPH % 13.5 % (27.0-41.0); MEAN CELL VOLUME 85.5 fl (81.0-99.0); MEAN CORPUSCULAR HGB 26.7 pg (27.0-31.0); MEAN CORPUSCULAR HGB CONC 31.3 g/dl (33.0-37.0); MEAN PLATELET VOLUME 11.4 fl (9.6-12.3); MONO # 0.8 10*3/uL (0.1-1.0); MONO % 10.5 % (3.0-9.0); NEUT # 5.5 10*3/uL (2.3-7.9); NEUT % 71.7 % (47.0-73.0); PLATELET COUNT AUTOMATED 153 10*3/uL (130-400); RED BLOOD COUNT 3.37 10*6/uL (4.10-5.10); RED CELL DISTRI WIDTH 16.5 % (0-14.5); WHITE BLOOD COUNT 7.6 10*3/uL (4.8-10.8)
--- NOTE | 2017-03-07 19:31 | NUR ---
PT TAKEN TO US
[2017-03-07 19:40] LABS: ALBUMIN 2.9 gm/dl (3.1-4.5); CREATININE 4.27 mg/dL (0.55-1.02); POTASSIUM 4.9 mmol/L (3.5-5.1); TOTAL PROTEIN 7.5 gm/dL (6.4-8.2)
[2017-03-07 20:17] VITALS: BP 157/88
--- NOTE | 2017-03-07 20:59 | NUR ---
REPORT GIVEN TO JOHNNIE MERAZ
[2017-03-07 21:19] VITALS: BP 157/88
[2017-03-07] MEDS ORDERED: COREG12.5 M1 PO (21:51)
[2017-03-07] MEDS ORDERED: DULCOLAX10 M1 R (21:53)
[2017-03-07] MEDS ORDERED: Synthroid,Levo25 MCG PO (21:56)
[2017-03-07] MEDS ORDERED: METOLAZONE2.5 MG PO (21:57)
[2017-03-07] MEDS ORDERED: MILK OF MA400 MG/5 M PO (21:58)
[2017-03-07] MEDS ORDERED: NORCO 5-325 TA1 EACH PO (21:58)
[2017-03-07] MEDS ORDERED: POTASSIUM CHLO10 MEQ PO (21:59)
[2017-03-07] MEDS ORDERED: PROVENTIL HFA6.7 GM INH (22:01)
[2017-03-07] MEDS ORDERED: VITAMIN D-32000 UNIT PO (22:02)
[2017-03-07] MEDS ORDERED: DUONEB 3 MG/3 ML3 M1 INH (22:04)
[2017-03-07] MEDS ORDERED: FLEET ENEMA 13133 ML R (22:05)
[2017-03-07] MEDS ORDERED: GLUCOTROL10 MG PO (22:06)
--- NOTE | 2017-03-07 22:29 | NUR ---
Time: 2118 A 51 year old FEMALE admitted to under services of DR. LAUREN BERNAL,MAIA Aguirre Pt. arrived via stretcher from ER. Chief complaint: CHF, ELEVATED BUN, AND CHRONIC KIDNEY FAILURE. SHA MARY
--- NOTE | 2017-03-07 22:54 | NUR ---
SPOKE WITH RONALDO AT [facility] PERTAINING TO MED REQ SENT FROM [facility]. CLARIFIED VITAMIN D ORDERS DUE TO TWO ORDERS BEING ON MAR ONE FOR 4000 AND ONE FOR 1000. THE [facility] STATES THAT SHE IS GETTING BOTH FOR A TOTAL OF 5000. ALSO ATTEMPTED TO CLARIFY SYNTHROID ORDER, DUE TO MED REQ STATING THE PATIENT TAKES SYNTHROID 25MC 0.5 TABLET EVERY SATURDAY. RONALDO STATED SHE IS UNSURE IF THAT ORDER IF CORRECT, BEUCASE SHE HAS THE PATIENT NOT RECIEVING ANY SYNTHROID ON SATURDAY, BUT THE ACTUAL MEDICATION CARD SHOWS THAT THE PATIENT TAKES SYNTHROID 25MCG DAILY AND SOMEONE WROTE ON THE CARD "EVERY" SATURDAY. DR. AGUILAR MADE AWARE OF CHANGES AND STATED IT WAS OK TO CHANGE THE MEDS, STATED THAT THE SYNTHROID MAY BE LEFT OUT SINCE IT CANNOT BE CLARIFIED AND TO HOLD THE VITAMIN D. MED REC UP TO DATE OF NOW PER LIST PROVIDED BY [facility]
[2017-03-08] VITALS: BP 140/64
[2017-03-08 06:26] LABS: BASO % 0.6 % (0.0-1.0); EOS # 0.3 10*3/uL (0.0-0.4); EOS % 3.8 % (1.0-4.0); HEMOGLOBIN 8.6 g/dl (12.0-16.0); LYMPH # 1.1 10*3/uL (1.3-4.4); LYMPH % 16.3 % (27.0-41.0); MEAN CELL VOLUME 86.4 fl (81.0-99.0); MEAN CORPUSCULAR HGB 26.5 pg (27.0-31.0); MEAN CORPUSCULAR HGB CONC 30.7 g/dl (33.0-37.0); MEAN PLATELET VOLUME 11.7 fl (9.6-12.3); MONO # 0.8 10*3/uL (0.1-1.0); MONO % 11.8 % (3.0-9.0); NEUT # 4.6 10*3/uL (2.3-7.9); NEUT % 67.2 % (47.0-73.0); PLATELET COUNT AUTOMATED 147 10*3/uL (130-400); RED BLOOD COUNT 3.24 10*6/uL (4.10-5.10); RED CELL DISTRI WIDTH 16.6 % (0-14.5); WHITE BLOOD COUNT 6.9 10*3/uL (4.8-10.8)
--- NOTE | 2017-03-08 06:37 | NUR ---
DR. ALAMO WAS NOTIFIED OF A CONSULT FOR CHRONIC KIDNEY FAILURE VIA HER ANSWERING SERVICE.
--- NOTE | 2017-03-08 06:48 | NUR ---
DR ALAMO CALLED TO RELAY THAT SHE NO LONGER COVERS THIS FACILITY. DR MITCHELL WAS NOTIFIED AND REQUESTED WE CONTACT DR SILVER INSTEAD. DR. HOYT ANSWERING SERVICE WAS CONTACTED AND NOTIFIED OF THE CONSULT.
[2017-03-08 06:49] LABS: CREATININE 4.24 mg/dL (0.55-1.02); POTASSIUM 4.5 mmol/L (3.5-5.1)
[2017-03-08 08:00] VITALS: BP 110/50
--- NOTE | 2017-03-08 08:00 | NUR ---
SLEEPING, AROUSES TO VERBAL STIMULI BUT REMAINS DROWSY THROUGHOUT ASSESSMENT. STATES "I JUST WANNA SLEEP" NOT COOPERATIVE WITH PHYSICAL ASSESSMENT. WILL CONTINUE TO MONITOR. SEE SHIFT ASSESSMENT.
--- NOTE | 2017-03-08 08:52 | NUR ---
PT IS LTC AT [facility] AND MAY RETURN UPON DC.
[2017-03-08 12:00] VITALS: BP 150/77
--- NOTE | 2017-03-08 13:23 | NUR ---
DR LOPEZ IN TO SEE PT.
--- NOTE | 2017-03-08 13:32 | NUR ---
PT INSTRUCTED ON NEED FOR PVR & TO NOTIFY STAFF ONCE SHE VOIDS, PT VOICES UNDERSTANDING.
--- NOTE | 2017-03-08 14:17 | NUR ---
PHYSICAL THERAPY P[facility]ient is [facility]. PAtient requests no PT this date. Thank you for this referral. Fatoumata Castillo,PT
[2017-03-08 16:00] VITALS: BP 156/85
--- NOTE | 2017-03-08 17:15 | NUR ---
PT SLEPT MOST OF DAY, INSTRUCTED ONCE AGAIN ON NEED TO DO A PVR & TO PLEASE CALL STAFF ONCE SHE VOIDS. PT ONCE AGAIN VOICES UNDERSTANDING.
--- NOTE | 2017-03-08 18:45 | NUR ---
DR MCFARLANEAIN IN TO SEE PT, INFORMED OF PTS SOMULENCE. DISAGREES THAT PT APPEARS SOMULENT. PT HAS NOT VOIDED AT THIS POINT, REINFORCED NEED FOR PVR.
--- NOTE | 2017-03-08 20:00 | NUR ---
LAB RESULTS AND ORDERS REVIEWED
[2017-03-08 20:15] LABS: BILIRUBIN NEGATIVE (NEGATIVE); BLOOD 2+ (NEGATIVE); CLARITY CLEAR (CLEAR); COLOR YELLOW (YELLOW); GLUCOSE TRACE (NEGATIVE); KETONE NEGATIVE (NEGATIVE); LEUKO ESTERASE NEGATIVE (NEGATIVE); NITRITE NEGATIVE (NEGATIVE); UROBILINOGEN 0.2 E.U./dl (0.2-1.0)
[2017-03-08 20:21] LABS: BACTERIA TRACE
[2017-03-09] VITALS: BP 149/73
--- NOTE | 2017-03-09 05:21 | NUR ---
CA 6.[address] AGUILAR. ORDERS RECEIVED IV CALCIUM GLUCONATE 1 AMPULE 1 TIME DOSE.
[2017-03-09 06:11] LABS: ALBUMIN 2.8 gm/dl (3.1-4.5); CREATININE 4.09 mg/dL (0.55-1.02); PHOSPHOROUS 7.8 mg/dL (2.5-4.9); POTASSIUM 4.6 mmol/L (3.5-5.1)
--- NOTE | 2017-03-09 07:45 | NUR ---
PATIENT COMPLAINING OF GENERALIZED NEUROPATHY PAIN T/O BODY AND MEDICATED WITH PO NORCO AT THIS TIME. THUAN MONITOR.
[2017-03-09 08:00] VITALS: BP 153/86
--- NOTE | 2017-03-09 08:45 | NUR ---
PER PATIENT, NORCO HAS BEEN EFFECTIVE.
--- NOTE | 2017-03-09 11:10 | NUR ---
IN TO SEE PATIENT AND NEW ORDERS OBTAINED. PT DENIES NEEDS AT THIS TIME.
[2017-03-09 16:00] VITALS: BP 140/74
--- NOTE | 2017-03-09 18:43 | NUR ---
PT MEDICATED WITH PRN NORCO FOR C/O PAIN IN HANDS AND FEET. PT RATES PAIN 11/05. WILL REACCESS.
[2017-03-09 20:00] VITALS: BP 167/87
--- NOTE | 2017-03-09 21:39 | NUR ---
PATIENT MEDICATED WITH IMODIUM 4MG FOR COMPLAINTS OF DIARRHEA. DENIES COMPLAINTS OF PAIN OR DISCOMFORT. WILL CONTINUE TO MONITOR. CALL LIGHT IN REACH.
[2017-03-10] VITALS: BP 145/70
--- NOTE | 2017-03-10 03:16 | NUR ---
PATIENT MEDICATED WITH NORCO FOR COMPLAINTS OF HAND AND LEG PAIN. WILL MONITOR FOR EFFECTIVENESS. CALL LIGHT IN REACH.
--- NOTE | 2017-03-10 03:53 | NUR ---
NORCO EFFECTIVE AT THIS TIME. RESTING IN BED WITH EYES CLOSED. AROUSES TO VERBAL STIMULI. NO SIGNS OR SYMPTOMS OF DISTRESS NOTED. WILL CONTINUE TO MONITOR. CALL LIGHT IN REACH.
[2017-03-10 06:41] LABS: ALBUMIN 2.9 gm/dl (3.1-4.5); CREATININE 3.88 mg/dL (0.55-1.02); PHOSPHOROUS 7.8 mg/dL (2.5-4.9); POTASSIUM 4.7 mmol/L (3.5-5.1)
[2017-03-10 07:59] VITALS: BP 124/60
--- NOTE | 2017-03-10 12:35 | NUR ---
RESTING IN BED CALL LIGHT IN REACH GAVE PRN MEDICATION FOR PAIN WILL REASSESS FOR EFFECTIVENSS
[2017-03-10 16:00] VITALS: BP 134/72
--- NOTE | 2017-03-10 16:33 | NUR ---
PATIENT RESTING IN BED FAMILY OM ROOM CALL LIGHT IN REACH NO CO AT THIS TIME
[2017-03-10 20:00] VITALS: BP 127/69
--- NOTE | 2017-03-10 22:00 | NUR ---
PT GIVEN PRN NORCO FPOR PAIN.
--- NOTE | 2017-03-10 22:55 | NUR ---
PRN NORCO EFFECTIVE AT THIS TIME. PATIENT RESTING IN BED WATCHING TV. NO SIGNS OR SYMPTOMS OF DISTRESS NOTED. WILL CONTINUE TO MONITOR. CALL LIGHT IN REACH.
[2017-03-11] VITALS: BP 156/86
[2017-03-11 06:01] LABS: ALBUMIN 2.8 gm/dl (3.1-4.5); CREATININE 3.89 mg/dL (0.55-1.02); POTASSIUM 4.6 mmol/L (3.5-5.1)
[2017-03-11 08:00] VITALS: BP 124/52; BP 152/74
--- NOTE | 2017-03-11 08:10 | NUR ---
PATENT IN BED WATCHING TV ASKED FOR PAIN MEDICATION FORM PAIN IN HER HANDS AND LEGS SHE RATES THE PAIN A 7. WILL REASSESS FOR EFFECTIVENESS OF MEDICATION. SEE SHIFT ASSESSMENT
--- NOTE | 2017-03-11 08:30 | NUR ---
PHYSICAL THERAPY PAtient eating breakfast at this time. Fatoumata Castillo,.PT
--- NOTE | 2017-03-11 11:12 | NUR ---
Patient being discharged back to [facility], [facility] [place] and nursing notified.
--- NOTE | 2017-03-11 11:25 | NUR ---
CALLED NURSE TO NURSE REPORT FOR PATIENT TO [facility] NURSE WAS NOT AVAILABLE. ATTEMPTED THREE SEPARATE TIMES TO CALL FINALLY LEFT [place] FOR NURSE TO CALL BACK. LEFT INFORMATION OF TIME THAT PATIENT WILL BE PICKE DUP BY [facility].
--- NOTE | 2017-03-11 12:19 | NUR ---
PATIENT LEFT WITH [facility] AT 11:55
== END 2017-03-11 11:55 | disposition home or self-care (01) | DRG 291 ==
LOC: ED 18:14 → 4E 20:31 → EDHOLD 20:31 → 4E 20:45
PROVIDERS: Internal Medicine Nephrology; Physician Assistant; ADMIT Internal Medicine
DX: I13.2 Hypertensive heart and chronic kidney disease with heart failure and with stage 5 chronic kidney disease, or end stage renal disease (principal); N17.0 Acute kidney failure with tubular necrosis; I50.33 Acute on chronic diastolic (congestive) heart failure; E44.0 Moderate protein-calorie malnutrition; Z68.41 Body mass index [BMI] 40.0-44.9, adult; N18.5 Chronic kidney disease, stage 5; N25.81 Secondary hyperparathyroidism of renal origin; E11.22 Type 2 diabetes mellitus with diabetic chronic kidney disease; E11.42 Type 2 diabetes mellitus with diabetic polyneuropathy; E11.65 Type 2 diabetes mellitus with hyperglycemia; E87.5 Hyperkalemia; E83.39 Other disorders of phosphorus metabolism; E78.2 Mixed hyperlipidemia; G89.4 Chronic pain syndrome; F41.1 Generalized anxiety disorder; E83.51 Hypocalcemia; E66.01 Morbid (severe) obesity due to excess calories; Z79.4 Long term (current) use of insulin; Z88.1 Allergy status to other antibiotic agents; Z91.041 Radiographic dye allergy status; Z79.899 Other long term (current) drug therapy; Z98.51 Tubal ligation status; Z80.0 Family history of malignant neoplasm of digestive organs; Z83.3 Family history of diabetes mellitus; Z84.89 Family history of other specified conditions; Z91.19 Patient's noncompliance with other medical treatment and regimen; Z87.891 Personal history of nicotine dependence; D63.1 Anemia in chronic kidney disease

== ENCOUNTER 2017-05-27 01:00 | Inpatient (IN) | payer MEDICARE, MEDICAID ==
[~2017-05-27] VITALS: Ht 162.5 cm; Wt 110.5 kg
[2017-05-27] VITALS (9 sets, daily range): BP systolic 122–179; BP diastolic 58–85
--- NOTE | ~2017-05-27 | PR ---
[place], [place] PROGRESS NOTE NAME: KARTHIKEYAN MIDDLETON [facility] #: [id number] UNIT #: [id number] ROOM: [facility] DOCTOR: FILIPE RUBI DPM BIRTHDATE: [birth year] DOS: 05/30/2017 SUBJECTIVE: The patient presents post incision and drainage of the right foot with bone biopsy. OBJECTIVE: Upon removal of the dressing and packing, the wound appears free of purulent drainage or foul odor. No further erythema or edema. No odor upon removal of the packing, dorsal first MPJ. ASSESSMENT: Post incision and drainage of abscess with bone biopsy, first right metatarsophalangeal joint. PLAN: Ordered half inch plain packing with wet to dry dressing twice a day along with blood work for the morning and we will reassess the patient tomorrow. Discussed the case with Dr. Barahona who will see the patient tomorrow. FILIPE RUBI DPM CM:PNLISETH [phone] FILIPE RUBI DPM 05/30/17 1448 interface
--- NOTE | ~2017-05-27 | PR ---
[place], [place] PROGRESS NOTE NAME: [facility]AN MIDDLETON [facility]: [id number] UNIT #: [id number] ROOM: [facility] DOCTOR: MELISSA CORTES MD BIRTHDATE: [birth year] DOS: 05/30/2017 SUBJECTIVE: The patient is doing well this morning. Does not have any complaints. OBJECTIVE: VITAL SIGNS: Blood pressure is 122/62, pulse of 76, respirations 18, temperature 98.5. LUNGS: Diminished breath sounds, clear. HEART: Regular. ABDOMEN: Obese, soft, nontender. EXTREMITIES: No edema. Right foot, the area looks clean. Removed the dressings, packings intact. It was just bloody, but without any discharge. Right knee is still pretty swollen and tense and quite tender. ASSESSMENT AND PLAN: 1. Septic arthritis. White cell count noted to be about 50,000 on the fluid, continue IV antibiotics. 2. Possible osteomyelitis of the big toe area for which the patient is again on antibiotics. 3. Adult failure to thrive. We are recommending placement to a long-term facility. Awaiting placement to a long-term care facility. 4. Type 2 diabetes mellitus, insulin-dependent. Blood sugars are fairly controlled on the current medications. 5. End-stage renal failure, on dialysis. The patient does tell me that the days of dialysis she does not urinate much, so the patient did not have any urine output during the night. MELISSA CORTES MD CM:PNTRANS [id number] MELISSA CORTES MD 05/30/17 1401 interface
--- NOTE | ~2017-05-27 | PR ---
[place], [place] PROGRESS NOTE NAME: KAR[facility]IKEYAN MIDDLETON [facility]: [id number] UNIT #: [id number] ROOM: [facility]- DOCTOR: MELISSA CORTES MD BIRTHDATE: [birth year] DOS: 05/28/2017 SUBJECTIVE: The patient states that she is doing good. Her pain is much better, but this morning, blood sugar was quite high and she appears to be in DKA with a high anion gap. OBJECTIVE: VITAL SIGNS: Blood pressure is 150/64, pulse of 83, respirations 19, temperature 98.1. LUNGS: Diminished breath sounds. No wheezes heard. HEART: Regular. ABDOMEN: Obese. EXTREMITIES: Decreased edema in the right knee, less swelling, less redness. ASSESSMENT AND PLAN: 1. Possible septic joint with possibility of osteomyelitis of the big toe. The patient is on multiple antibiotics. Arterial Dopplers noted. MRI of the knee is not available yet. MRI of the foot is pending. The patient is to continue on antibiotics and the patient would benefit from a knee tap for analysis. We will ask Dr. Last for an opinion. I am still waiting for her to see the patient. 2. Peripheral vascular disease which needs to be addressed at a later date with CT angiogram. Right now, continue antibiotics. 3. Diabetic ketoacidosis. IV insulin drip will be ordered, ketone level is pending. 4. End-stage renal disease, on dialysis. MELISSA CORTES MD CM:PNTRANS [id number] MELISSA CORTES MD 05/28/17 1616 interface
--- NOTE | ~2017-05-27 | DS ---
[place], [place] DISCHARGE SUMMARY NAME: KARTHIKEYAN MIDDLETON [facility] #: [id number] UNIT #: [id number] ROOM: [facility] DOCTOR: MELISSA CORTES MD BIRTHDATE: [birth year] DOS: 05/30/2017 HOSPITAL COURSE: The patient is 51 years old, very well known to us, who has been admitted to the hospital multiple times, comes in with inability to walk for about 3 days. She does not have any fever or chills, any chest pain, shortness of breath. No history of recent major falls with injury. She lives in a [place] [facility]. Her right knee appeared to be quite swollen, red, very tense and extremely tender. After admission, the patient had an ESR and CRP, which were quite elevated. The possibility of septic arthritis was raised. Consultation with Dr. Last was obtained. MRI of the right knee was ordered. IV antibiotics started. MRI showed miniscule disease and tears in the suprapatellar bursitis versus abscess. Fluoroscopy was performed and the patient's abscess was aspirated, about 5 mL was obtained, was not enough to sent for culture, but cell count was ordered, which showed white cell count of about 52,000. The patient also had a right foot which had an eschar on the big toe with some surrounding cellulitis. MRI of the foot was performed, which showed a possibility of periosteal reaction and gas in the soft tissue, which raised the possibility of osteomyelitis. Consultation with Podiatry was obtained. They did take her for surgery and the area was cleaned and no abscess was noted. The eschar was removed and packing was ordered. Blood cultures repeat have come back negative. She does have end-stage renal failure and is on dialysis. During the stay, she also developed severe hyperosmolar state with blood sugars in the 600s. Since I was unable to give her any fluids, the patient was given IV insulin drip. The sugars have come down and she has been stable for the last 48 hours. The dosage of her antidiabetic medications has been adjusted. The patient is overall stable. The plan is to discharge her to a long-term care for 6 weeks of antibiotics for the osteomyelitis of the big toe as well as septic joint of the right knee. DISCHARGE MEDICATIONS: Sertraline 50 mg daily; Zocor 10 daily; Lyrica 200 t.i.d.; Zofran 8 mg q. 6 p.r.n.; Coreg 12.5 b.i.d.; Dulcolax 10 mg daily p.r.n.; potassium 10 daily; glipizide 10 daily; levothyroxine 50 mcg daily; primidone eyedrops 1 drop b.i.d.; latanoprost eye drops 1 drop daily; dorzolamide 1 drop b.i.d.; calcium acetate 667 mg t.i.d.; loratadine 10 daily; DuoNeb q. 4 p.r.n.; melatonin 3 mg at bedtime p.r.n.; Lasix 80 mg on nondialysis days; Levemir 20 units at 5:00 p.m.; Dilaudid 0.5 t.i.d. p.r.n.; PhosLo dosage was changed to 1334 mg t.i.d.; Zosyn 2.25 b.i.d.; vancomycin 1 gram Saturday, Saturday, Fridays. [place], [place] DISCHARGE SUMMARY NAME: KARTHIKEYAN MIDDLETON UNIT #: [id number] ROOM: [facility] DOCTOR: MELISSA CORTES MD BIRTHDATE: [birth year] MELISSA CORTES MD CM:DISCHARG 0 MELISSA CORTES MD 05/30/17909 interface
--- NOTE | ~2017-05-27 | WRIGHTHP ---
[place], [place] PATIENT HISTORY AND PHYSICAL EXAM NAME: KARTHIKEYAN MIDDLETON [facility] #: [id number] UNIT #: [id number] ROOM: 420 DOCTOR: MELISSA CORTES MD BIRTHDATE: [birth year] DOS: 05/27/2017 HISTORY OF PRESENT ILLNESS: The patient is 51 years old resident of [facility], was brought into the Emergency Room with complaints of pain in the right knee and swelling. The patient states it suddenly happened about 2 days ago. She is unable to walk and that's why she was sent out to the hospital. Patient denies having any chest pains, palpitations, does not have any fever or chills, does not have any abdominal pain, nausea and emesis. Last hospitalized in February 2017. She is on dialysis now. PAST MEDICAL HISTORY: Significant for; 1. End-stage renal failure. 2. Type 2 diabetes mellitus, insulin dependent, poorly controlled. 3. Benign hypertension. 4. Mixed hyperlipidemia and chronic pain syndrome. MEDICATIONS: She is currently on breathing treatment Proventil q.i.d.; brimonidine, latanoprost and dorzolamide eyedrops; calcium acetate 667 t.i.d.; Coreg 12.5 b.i.d.; Lasix 80 as needed on Sundays, Tuesdays, and Saturdays; glipizide 10 daily; levothyroxine 25 mcg daily; loratadine 10 daily; melatonin 3 mg at bedtime; Zofran 8 mg q. 6 p.r.n.; potassium 10 daily; Lyrica 200 t.i.d.; sertraline 50 daily; simvastatin 10 at bedtime; bisacodyl p.r.n. and insulin sliding scale. SOCIAL HISTORY: Nonsmoker. Does not use any alcohol. PHYSICAL EXAMINATION: GENERAL: The patient is awake, alert and oriented. VITAL SIGNS: Graphic trend shows that she is afebrile. Pressure is 133/85, pulse of 66, respirations 20 and temperature 97.5. LUNGS: Diminished breath sounds. No wheezes, rales or rhonchi heard. HEART: Regular. ABDOMEN: Obese, soft, nontender. EXTREMITIES: Right knee is quite swollen, very tender to touch, difficult to flex the joint and is very warm. The right big toe has an eschar. ASSESSMENT AND PLAN: 1. Septic joint. The patient is ordered an ESR and CRP, placed on IV antibiotics. Ortho consultation is obtained for a knee tap and possible culture of the synovial fluid. 2. Peripheral vascular disease, most likely resulting in poorly healing wound of the right toe, which is ischemic. The patient is ordered a peripheral arterial Doppler. 3. End-stage renal failure, on dialysis. 4. Type 2 diabetes mellitus. Capillary blood sugars to be checked and patient is on p.o. medications right now. [place], [place] PATIENT HISTORY AND PHYSICAL EXAM NAME: KARTHIKEYAN MIDDLETON UNIT #: [id number] ROOM: 420 DOCTOR: MELISSA CORTES MD BIRTHDATE: [birth year] MELISSA CORTES MD CM:HISPHYS:PATIENT HISTORY AND PHYSICAL EXAMINATION [id number] MELISSA CORTES MD 05/27/17 0942 interface
--- NOTE | ~2017-05-27 | O ---
[place], [place] OPERATIVE NOTE NAME: KARTHIKEYAN MIDDLETON UNIT #: [id number] ROOM: [facility] DOCTOR: ART MILTON DPM BIRTHDATE: [birth year] DOS: 05/29/2017 PREOPERATIVE NOTE: This patient was seen preoperatively and surgical plan was discussed with her and her sister in detail. On exam, the patient had ulceration of her right dorsal foot with extending infection noted on MRI. VASCULAR: Dorsalis pedis and posterior tibial pulses were noted to be +1/4 to bilateral feet. DERMATOLOGICAL: A 1 cm x 1 cm ulceration was noted to right dorsal foot with soft tissue crepitus noted on palpation of the dorsal first MPJ. NEUROVASCULAR: Peripheral neuropathy noted to bilateral lower extremities to the level of the heel bilaterally. ORTHOPEDIC: Ankle joint range of motion noted to be reduced in dorsiflexion to bilateral lower extremities with gastrocnemius equinus noted. Crepitus is noted with first MPJ range of motion of the right foot. ASSESSMENT: At this time, I discussed all possible benefits and risks of surgical procedure with the patient in detail. Consent was obtained at bedside and all questions were answered. No guarantees were given. SURGEON: Art Milton DPM. REAL ESTATE INSTRUCTOR: None. PREOPERATIVE DIAGNOSIS: Osteomyelitis and soft tissue infection, right foot. POSTOPERATIVE DIAGNOSIS: Osteomyelitis and soft tissue infection, right foot. PROCEDURE: Incision and drainage of right foot with bone debridement and biopsy of right hallux. ANESTHESIA: Local with IV sedation. HEMOSTASIS: None. ESTIMATED BLOOD LOSS: 10 mL. MATERIALS: None. IMPLANTS: Quarter inch iodoform packing gauze. DESCRIPTION OF PROCEDURE: The patient was taken to the preoperative holding area where consent was signed and obtained. The patient was taken from the preoperative holding area to the operating room where IV anesthesia was administered per Anesthesiology. A local regional anesthetic block was given to the right ankle using 10 mL of 0.5% Marcaine and 1% lidocaine plain at the proximal ankle. The right lower extremity was then prepped and draped in the [place], [place] OPERATIVE NOTE NAME: KARTHIKEYAN MIDDLETON UNIT #: [id number] ROOM: [facility] DOCTOR: ART MILTON DPM BIRTHDATE: [birth year] usual sterile fashion. At this time, attention was directed to the dorsal aspect of the first metatarsophalangeal joint, where an approximate 4 cm curvilinear incision was made overlying the first metatarsophalangeal joint using a #15 blade. Next, using the #15 blade, the ulceration noted to the dorsal right hallux was excised. The ulceration measured approximately 1 cm x 1 cm and was noted to be a dry eschar. Minimal soft tissue coverage was noted over the bone. Next, using blunt hemostats and dissections, the dissection was carried out through the subcutaneous tissue over the dorsum of the foot extending laterally, proximally and medially. There was noted to be serous drainage upon expression with scant amounts of pus noted about the base of the hallux. At this time, soft tissue culture and biopsy were taken and sent for pathology. Next, using a bone rongeur, a small debrided bone all of the right hallux was taken and sent for pathology and culture. Following this, it was noted that no further signs of infection or purulence were noted after probing medially, proximally and laterally. Following this, the incision site was irrigated with copious amounts of sterile saline solution using pulse lavage. Following pulse lavage, the incision site was packed using quarter inch iodoform packing gauze. The incision site was then dressed using Betadine soaked 4 x 4s, Kerlix and Emiliano bandage in mild compressive dressing. Vascular status was maintained prior to and throughout the case. Vascular status and vital signs were noted to be stable at the conclusion of the case. The patient was awoken by anesthesia per protocol and was transported to the postoperative area with vital signs stable and vascular status intact. In the postoperative area, the patient received postoperative instructions and she will be readmitted to the floor under the care of the primary care physician. We will follow up with the patient on the floor. ART MILTON DPM CM:OPRECORD:OPERATIVE NOTE [id number] ART MILTON DPM 05/29/172125 interface
--- NOTE | ~2017-05-27 | PR ---
[place], [place] PROGRESS NOTE NAME: KARTHIKEYAN MIDDLETON [facility] #: [id number] UNIT #: [id number] ROOM: [facility]- DOCTOR: MELISSA CORTES MD BIRTHDATE: [birth year] DOS: 05/29/2017 SUBJECTIVE: The patient is resting comfortably, does not have any new complaints. I appreciate all consultants' help. OBJECTIVE EXAMINATION: GENERAL: She is awake and alert and oriented. VITAL SIGNS: Blood pressure is 92/47, pulse of 50, respirations 15, temperature 97.0. LUNGS: Clear. HEART: Regular. ABDOMEN: Obese. EXTREMITIES: Without any edema on the left. Right leg, minimal swelling. Also on the right knee, there is some minimal swelling in the suprapatellar area, right big toe less redness noticed today. Ischemic ulcer is still present with eschar on the big toe. LABORATORY DATA: This morning, will be glucose 166, BUN 77, creatinine 6.53, sodium 135, potassium 5.1, chloride 95, bicarbonate 25. Phosphorus 9.10. MRI of the foot shows periosteal changes with gas gangrene in the soft tissue, but no clear osteo, but MRSA nares was negative. Ketone was negative. MRI of the knee was already noted. ASSESSMENT AND PLAN: 1. Septic joint of the right knee. Discussed with Dr. Last yesterday, she was unable to do a knee tap. This morning, the condition was discussed with the interventional radiologist and he is willing to do the knee tap this morning. Hopefully, we will have some idea but this is truly septic joint. 2. Hyperosmolar state with blood sugars in the 600, ketones were negative. Unfortunately, because dialysis patient, the patient was not given any fluids, instead IV insulin was given and the blood sugars have come down into the low 100s. Insulin has been discontinued and low dose Lantus insulin has been started along with the glipizide that she has already been on. 3. End-stage renal disease, on dialysis. 4. Periosteal changes in the right big toe, most likely osteomyelitis. The patient is already on multiple antibiotics. May require antibiotics for 6 weeks, will consider placement to a long-term care facility. She has agreed to go to [facility], arrangements will be made. [place], [place] PROGRESS NOTE NAME: KARTHIKEYAN MIDDLETON UNIT #: [id number] ROOM: [facility] DOCTOR: MELISSA CORTES MD BIRTHDATE: [birth year] MELISSA CORTES MD CM:MIRIAM [id number] MELISSA CORTES MD 05/29/17 1347 interface
[~2017-05-27 01:00] MED LIST changes: +AMOXICILLIN500 M2 PO; +COREG12.5 M1 PO; +DULCOLAX10 M1 R; +FLEET ENEMA 13133 ML R; +METOLAZONE2.5 MG PO; +MILK OF MA400 MG/5 M PO; +NORCO 5-325 TA1 EACH PO; +POTASSIUM CHLO10 MEQ PO; +PROVENTIL HFA6.7 GM INH; +VITAMIN D-32000 UNIT PO
[2017-05-27 01:20] LABS: BASO % 0.3 % (0.0-1.0); EOS # 0.4 10*3/uL (0.0-0.4); EOS % 3.8 % (1.0-4.0); HEMATOCRIT 32.7 % (37.0-47.0); HEMOGLOBIN 10.2 g/dl (12.0-16.0); LYMPH % 9.5 % (27.0-41.0); MEAN CELL VOLUME 94.2 fl (81.0-99.0); MEAN CORPUSCULAR HGB 29.4 pg (27.0-31.0); MEAN CORPUSCULAR HGB CONC 31.2 g/dl (33.0-37.0); MEAN PLATELET VOLUME 11.3 fl (9.6-12.3); MONO # 1.1 10*3/uL (0.1-1.0); MONO % 10.1 % (3.0-9.0); NEUT # 8.1 10*3/uL (2.3-7.9); NEUT % 75.6 % (47.0-73.0); NUCLEATED RED BLOOD CELL 0.2 % (0.0-0.0); PLATELET COUNT AUTOMATED 137 10*3/uL (130-400); RED BLOOD COUNT 3.47 10*6/uL (4.10-5.10); RED CELL DISTRI WIDTH 17.8 % (0-14.5); WHITE BLOOD COUNT 10.6 10*3/uL (4.8-10.8)
[2017-05-27 01:38] LABS: ALBUMIN 3.3 gm/dl (3.1-4.5); CREATININE 6.6 mg/dL (0.55-1.02); PHOSPHOROUS 8.7 mg/dL (2.5-4.9); POTASSIUM 5.9 mmol/L (3.5-5.1); TOTAL PROTEIN 8.2 gm/dL (6.4-8.2); URIC ACID 5.7 mg/dL (2.6-6.0)
[2017-05-27] MEDS ORDERED: Synthroid,Levo25 MCG PO (01:39)
[2017-05-27] MEDS ORDERED: LATANOPROST2.5 ML OP (01:40)
[2017-05-27] MEDS ORDERED: ALPHAGAN-P 0.2%5 ML OPH (01:40)
[2017-05-27] MEDS ORDERED: DORZOLAMIDE HYD10 M1 OP (01:40)
[2017-05-27] MEDS ORDERED: CALCIUM ACETAT667 MG PO (01:41)
[2017-05-27] MEDS ORDERED: CLARITIN10 MG PO (04:45)
[2017-05-27] MEDS ORDERED: DUONEB 3 MG/3 ML3 M1 INH (04:47)
[2017-05-27] MEDS ORDERED: MELATONIN3 MG PO (04:51)
[2017-05-27] MEDS ORDERED: Lasix80 MG PO (04:57)
[2017-05-28] VITALS: BP 150/64
[2017-05-28 05:57] LABS: ALBUMIN 3.3 gm/dl (3.1-4.5); CREATININE 5.48 mg/dL (0.55-1.02); PHOSPHOROUS 7.9 mg/dL (2.5-4.9); POTASSIUM 5.2 mmol/L (3.5-5.1)
[2017-05-28 08:00] VITALS: BP 149/81
[2017-05-28 12:00] VITALS: BP 131/74
[2017-05-28 16:00] VITALS: BP 137/71
[2017-05-28 20:00] VITALS: BP 104/53
[2017-05-29] VITALS (13 sets, daily range): BP systolic 92–126; BP diastolic 41–69
[2017-05-29 04:48] LABS: CREATININE 6.53 mg/dL (0.55-1.02); POTASSIUM 5.1 mmol/L (3.5-5.1)
[2017-05-29 05:21] LABS: PHOSPHOROUS 9.1 mg/dL (2.5-4.9)
[2017-05-29 13:39] LABS: BODY FLUID WBC 52 /uL
[2017-05-29 15:15] LABS: BF LYMPHOCYTES 27 %; BF MONOCYTES 61 %; BF NEUTROPHILS 12 %
[2017-05-30] VITALS: BP 123/64
[2017-05-30 04:00] VITALS: BP 122/64
[2017-05-30 05:50] LABS: ALBUMIN 3.1 gm/dl (3.1-4.5); CREATININE 5.13 mg/dL (0.55-1.02); PHOSPHOROUS 6.9 mg/dL (2.5-4.9); POTASSIUM 4.7 mmol/L (3.5-5.1)
[2017-05-30 08:00] VITALS: BP 122/62
[2017-05-30 12:00] VITALS: BP 118/60
[2017-05-30 15:00] VITALS: BP 123/65
[2017-06-04] MEDS ORDERED: LYRICA100 M1 PO ×2 (09:15→09:26)
[2017-06-04] MEDS ORDERED: PARICALCITOL IJ (09:18)
[2017-06-04] MEDS ORDERED: ZOSYN 3.373.375 GM/1 IV (09:20)
[2017-06-04] MEDS ORDERED: VANCOMYCIN1 GM/1002 IV (09:21)
[2017-06-04] MEDS ORDERED: TIMOPTIC 0.5%1 EACH OP (09:22)
[2017-06-04] MEDS ORDERED: B COMPLEX WITH1 EAC1 PO (09:23)
[2017-06-04] MEDS ORDERED: TYLENOL325 M1 PO (09:24)
[2017-06-04] MEDS ORDERED: ARANESP60 MCG/1 M IJ (09:25)
[2017-06-04] MEDS ORDERED: CRESTOR5 MG PO (09:33)
[2017-06-04] MEDS ORDERED: DILAUDID2 M1 PO (09:33)
[2017-06-04] MEDS ORDERED: HEPARIN 5,5000 UNIT/ SQ (09:36)
[2017-06-04] MEDS ORDERED: ZOFRAN2 MG/1 ML IV (09:39)
== END 2017-05-30 15:35 | DRG 477 ==
LOC: ED 01:00 → ICCU 02:15 → EDHOLD 02:15 → 4E 02:15 → ICCU 05-28 08:48
PROVIDERS: Internal Medicine; Internal Medicine Nephrology; Student in an Organized Health Care Education/Training Program
PROC: 5A1D70Z Performance of Urinary Filtration, Intermittent, Less than 6 Hours Per Day (ICD-10-PCS; principal; 2017-05-27)
PROC: 02HV33Z Insertion of Infusion Device into Superior Vena Cava, Percutaneous Approach (ICD-10-PCS; 2017-05-29)
PROC: B5181ZA Fluoroscopy of Superior Vena Cava using Low Osmolar Contrast, Guidance (ICD-10-PCS; 2017-05-29)
PROC: 0QBQ0ZX Excision of Right Toe Phalanx, Open Approach, Diagnostic (ICD-10-PCS; 2017-05-29)
PROC: 0S9C3ZX Drainage of Right Knee Joint, Percutaneous Approach, Diagnostic (ICD-10-PCS; 2017-05-29)
PROC: 0QBQ0ZZ Excision of Right Toe Phalanx, Open Approach (ICD-10-PCS; 2017-05-29)
PROC: 5A1D70Z Performance of Urinary Filtration, Intermittent, Less than 6 Hours Per Day (ICD-10-PCS; 2017-05-29)
DX: M00.9 Pyogenic arthritis, unspecified (principal); E11.10 Type 2 diabetes mellitus with ketoacidosis without coma; E11.00 Type 2 diabetes mellitus with hyperosmolarity without nonketotic hyperglycemic-hyperosmolar coma (NKHHC); I13.2 Hypertensive heart and chronic kidney disease with heart failure and with stage 5 chronic kidney disease, or end stage renal disease; M86.8X7 Other osteomyelitis, ankle and foot; E66.01 Morbid (severe) obesity due to excess calories; E11.22 Type 2 diabetes mellitus with diabetic chronic kidney disease; N18.6 End stage renal disease; E87.1 Hypo-osmolality and hyponatremia; L97.518 Non-pressure chronic ulcer of other part of right foot with other specified severity; E11.69 Type 2 diabetes mellitus with other specified complication; E11.621 Type 2 diabetes mellitus with foot ulcer; M00.861 Arthritis due to other bacteria, right knee; E11.65 Type 2 diabetes mellitus with hyperglycemia; E83.39 Other disorders of phosphorus metabolism; Z99.81 Dependence on supplemental oxygen; E11.51 Type 2 diabetes mellitus with diabetic peripheral angiopathy without gangrene; E78.2 Mixed hyperlipidemia; G89.4 Chronic pain syndrome; D72.821 Monocytosis (symptomatic); R62.7 Adult failure to thrive; F41.1 Generalized anxiety disorder; D64.9 Anemia, unspecified; E83.41 Hypermagnesemia; E11.42 Type 2 diabetes mellitus with diabetic polyneuropathy; I50.9 Heart failure, unspecified; E87.5 Hyperkalemia; Z88.1 Allergy status to other antibiotic agents; Z91.041 Radiographic dye allergy status; Z79.4 Long term (current) use of insulin; Z79.899 Other long term (current) drug therapy; Z87.81 Personal history of (healed) traumatic fracture; Z98.891 History of uterine scar from previous surgery; Z80.8 Family history of malignant neoplasm of other organs or systems; Z84.89 Family history of other specified conditions; Z83.3 Family history of diabetes mellitus; Z99.2 Dependence on renal dialysis

== ENCOUNTER → 2017-06-04 | Day surgery (SDC) | payer MEDICARE, MEDICAID ==
[~2017-06-04] MED LIST changes: +ALPHAGAN-P 0.2%5 ML OPH; +ARANESP60 MCG/1 M IJ; +B COMPLEX WITH1 EAC1 PO; +CALCIUM ACETAT667 MG PO; +CRESTOR5 MG PO; +DILAUDID2 M1 PO; +DORZOLAMIDE HYD10 M1 OP; +HEPARIN 5,5000 UNIT/ SQ; +LATANOPROST2.5 ML OP; +LYRICA100 M1 PO; +Lasix80 MG PO; +MELATONIN3 MG PO; +PARICALCITOL IJ; +TIMOPTIC 0.5%1 EACH OP; +VANCOMYCIN1 GM/1002 IV; +ZOFRAN2 MG/1 ML IV; +ZOSYN 3.373.375 GM/1 IV
[2017-06-04 09:26] VITALS: BP 94/41
== END ==
LOC: SDC 07:52 → MEDIPORT 07:52
DX: T82.598A Other mechanical complication of other cardiac and vascular devices and implants, initial encounter (principal)

== ENCOUNTER → 2017-06-24 | Day surgery (SDC) | payer MEDICARE, MEDICAID ==
[~2017-06-24] VITALS: Ht 162.5 cm; Wt 110.2 kg
[2017-06-24 07:15] VITALS: BP 109/71
[2017-06-24 09:54] VITALS: BP 94/44
[2017-06-24 10:08] VITALS: BP 100/51
[2017-06-24 10:20] VITALS: BP 120/66
== END | disposition home or self-care (01) ==
LOC: SDC 06-06 10:15
DX: Z45.2 Encounter for adjustment and management of vascular access device (principal); E11.40 Type 2 diabetes mellitus with diabetic neuropathy, unspecified; I11.0 Hypertensive heart disease with heart failure; I50.9 Heart failure, unspecified; F32.9 Major depressive disorder, single episode, unspecified; E78.00 Pure hypercholesterolemia, unspecified; K21.9 Gastro-esophageal reflux disease without esophagitis; F41.9 Anxiety disorder, unspecified; Z87.440 Personal history of urinary (tract) infections; Z86.14 Personal history of Methicillin resistant Staphylococcus aureus infection; Z98.890 Other specified postprocedural states; Z83.3 Family history of diabetes mellitus; F17.210 Nicotine dependence, cigarettes, uncomplicated

== ENCOUNTER 2017-07-08 02:35 | Inpatient (IN) | payer MEDICARE, MEDICAID ==
[~2017-07-08] VITALS: Ht 162.5 cm; Wt 110.9 kg
[2017-07-08] VITALS (10 sets, daily range): BP systolic 101–141; BP diastolic 42–78
--- NOTE | ~2017-07-08 | PR ---
[place], [place] PROGRESS NOTE NAME[id number] UNIT #: [id number] ROOM: 426 DOCTOR: MELISSA CORTES MD BIRTHDATE: [birth year] DOS: SUBJECTIVE: The patient is in bed. 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 She denies having any chest pains or palpitations. OBJECTIVE: VITAL SIGNS: Blood pressure is 103/61, pulse of 74, respirations 18, temperature 97.5. LUNGS: Diminished breath sounds, clear. HEART: Regular. ABDOMEN: Obese. EXTREMITIES: Legs pretty swollen, still about 2-3+ pitting edema bilaterally. LABORATORY DATA: Glucose 272, BUN 51, creatinine 6.41, sodium 132, potassium 4.6, chloride 95, bicarbonate 24. CT of the chest shows CHF, evidence of volume overload noted with cardiomegaly. Blood gas done yesterday showed a pH of 7.2, pCO2 of 53, pO2 98.4, bicarbonate 23.6. Troponins were negative. ASSESSMENT AND PLAN: 1. The patient admitted with precordial chest pain, rule out myocardial infarction protocol was negative. The patient is scheduled for a stress test today. 2. End-stage renal failure with continued noncompliance with diet as well as the dialysis. Discussed with Dr. Vargas an extra dialysis will be given today and the patient should be able to go back to the snf in the morning. 3. Type 2 diabetes mellitus, insulin-dependent, poorly controlled because of noncompliance with the diet. Continue Levemir and coverage scale. 4. History of street drug abuse and opioid dependence. Avoid narcotics if at all possible. 5. Noncompliance with poor insight to medical problems. The patient is encouraged not to eat extremely salty food or . MELISSA CORTES MD CM:PNTRANS 0845 MELISSA CORTES MD 07/09/1730 interface
--- NOTE | ~2017-07-08 | CON ---
[place], [place] REPORT OF CONSULTATION NAME: KARTHIKEYAN MIDDLETON [facility] #: [id number] UNIT #: [id number] ROOM: 426 DOCTOR: IVÁN GRAHAM MD BIRTHDATE: [birth year] DOS: 07/08/2017 REASON FOR CONSULTATION: Chest pain. HISTORY OF PRESENT ILLNESS: The patient was seen at her bedside today with her mother in attendance. She was seen on 07/08/2017. She is a 51-year-old woman who has a long history of obesity and type 2 diabetes mellitus, who has subsequently developed renal failure and has been on dialysis since about November 2016. Despite her renal failure and diabetes, she has never been documented as having coronary disease. There is no history of myocardial infarction and an echocardiogram done on 05/25/2016 showed normal wall motion. The patient is known to be noncompliant with dietary and medical therapies. She also has a history of drug abuse in the past. 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 She apparently does order out food and eats a high salt diet despite being in the jail. She is noted to be chronically fluid overloaded per old records and my discussions with Dr. Lluvia Presley. She was brought in to the Emergency Room early this morning because of newly documented chest pain which began about 1 in the morning. She stated that the pain was in the center of her chest and was associated with some shortness of breath. She did not have any palpitations or lightheadedness and denied nausea or vomiting. In the Emergency Room, her electrocardiogram was unchanged and unremarkable. Serial troponins have been negative. She was given narcotic pain medications and is currently quite lethargic. She will arouse and currently denies any chest pain, but she falls immediately to sleep and is unable to provide a coherent history. Her mother did confirm parts of the history that I was able to glean from the medical record. PAST MEDICAL HISTORY: Includes: 1. Type 2 diabetes mellitus, on insulin. 2. Obesity. 3. End-stage renal disease, on dialysis since about November 2016. 4. Dietary noncompliance. 5. Hypertension related to renal disease. 6. Obstructive sleep apnea. 7. COPD. 8. Echocardiogram, 05/25/2016, normal left ventricular size with mild left ventricular hypertrophy, ejection fraction 55-60%, stage 2 diastolic dysfunction, mild left atrial enlargement, normal valve structures. REVIEW OF SYSTEMS: The review of systems is limited by the patient's level of consciousness. She denies chest pain or dyspnea at this time. She denies nausea or vomiting. She denies abdominal pain. She states that her legs are always swollen. The remainder of the review of systems is negative as best I can obtain it. [place], [place] REPORT OF CONSULTATION NAME: KARTHIKEYAN MIDDLETON UNIT #: [id number] ROOM: 426 DOCTOR: IVÁN GRAHAM MD BIRTHDATE: [birth year] MEDICATIONS: Prior to admission: Glucagon 1 mg IM p.r.n. hypoglycemia, albuterol 2 puffs q.i.d. p.r.n., cefepime 2 g IV every Saturday, Saturday and Saturday for leg wound, brimonidine tartrate eyedrops in both eyes, Xalatan eyedrops at bedtime, Timoptic eyedrops b.i.d., acetaminophen p.r.n., ascorbic acid 500 mg b.i.d., calcium acetate 667 mg at bedtime and t.i.d., carvedilol 12.5 mg daily on Sundays, Tuesdays, and Saturdays and at bedtime on Sundays, Tuesdays, and Saturdays, dextrose 33 grams p.o. p.r.n. hypoglycemia, famotidine 20 mg daily, folic acid 0.8 mg daily, levothyroxine 25 mcg daily, metoclopramide 5 mg b.i.d., ondansetron 4 mg q. 6 hours p.r.n. nausea, Lyrica 200 mg t.i.d., rosuvastatin 5 mg at bedtime, sertraline 50 mg daily, zinc sulfate 220 mg daily, bisacodyl 10 mg rectally daily p.r.n., Lantus insulin 50 units at bedtime, lispro, Humalog insulin 3 units t.i.d., Humulin regular insulin by sliding scale and Bactroban applied to the right foot daily. ALLERGIES: The patient lists allergies to CLARITHROMYCIN, IODINE and SEAFOOD. FAMILY HISTORY: Father at age 73 from pancreatic cancer. Mother is alive at age 74. SOCIAL HISTORY: The patient lives in a jail. She does not drink alcohol or use illegal drugs now. She smokes 4 cigarettes per day and this is ongoing. PHYSICAL EXAMINATION: GENERAL: The patient is a morbidly obese white female who is lethargic, but arousable. VITAL SIGNS: Pulse is 61 and regular, blood pressure is 101/53. She is afebrile. She weighs 114.4 kilograms with a body mass index of 43.3. HEENT: Normocephalic and atraumatic. Extraocular muscles are intact. Sclerae are clear. Pupils are equal, round and react to light. The oral mucosa is moist. Tongue is midline. NECK: Supple. She does have jugular distention to the angle of the jaw when sitting at a 45 degree angle. Carotids are full and I heard no bruits. LUNGS: Respirations are somewhat labored. She does have rales at the bases. CARDIOVASCULAR: Her heart has a regular rhythm. Heart tones are distant. There is a fourth heart sound, but no third heart sound. I heard no murmurs. Palpation of the anterior chest reproduced her chest pain. ABDOMEN: Obese and somewhat distended. It is nontender. There are no masses or organomegaly. EXTREMITIES: Showed 3+ edema to above the knees. Her right foot is bandaged. Pedal pulses are absent on the left. LABORATORY DATA: I reviewed her electrocardiogram, which showed sinus rhythm with borderline low voltage, but is an otherwise normal tracing. Troponins are normal. Her sugar obtained during her current period of lethargy was over 200. A blood gas is pending. Hemoglobin is 8.4, hematocrit 27.4, 11,900 white cells and 166,000 platelets. Sodium is 132, potassium 5.5, chloride 95, CO2 of 20, BUN 67, creatinine 7.16. Troponin levels have been negative x 3. IMPRESSIONS: [place], [place] REPORT OF CONSULTATION NAME: KARTHIKEYAN MIDDLETON UNIT #: [id number] ROOM: 426 DOCTOR: IVÁN GRAHAM MD BIRTHDATE: [birth year] 1. Atypical chest pain. This is most likely musculoskeletal in origin. The patient does admit to coughing recently, most likely due to pulmonary fluid collections. This most likely has caused some chest wall irritation and subsequent pain. 2. Type 2 diabetes mellitus, on insulin. 3. End-stage renal disease, most likely due to diabetic nephropathy. 4. History of hypertension. 5. History of medication and dietary noncompliance. 6. No previously documented coronary artery disease, even though she does have multiple risk factors. PLAN: For now we will check a blood gas to make sure that she is breathing adequately. If that looks good, then I think that she should be sent to dialysis since I believe that she is remarkably fluid overloaded and this contributes to her dyspnea and chest discomfort. During this hospitalization, once the acute phase has passed, we probably will be getting a pharmacologic myocardial perfusion study. Further recommendations will depend upon the results of her stress test. I thank Dr. Presley for asking our advice regarding the patient's care. IVÁN GRAHAM MD CM:CONSTR:REPORT OF CONSULTATION 0930 07/08/17 1108 interface
--- NOTE | ~2017-07-08 | PR ---
[place], [place] PROGRESS NOTE [id number] UNIT #: [id number] ROOM: 426 DOCTOR: MELISSA CORTES MD BIRTHDATE: [birth year] DOS: 07/10/2017 SUBJECTIVE: The patient is looking a little bit better and less lethargic, obtunded. She did use a BiPAP during the night. OBJECTIVE: VITAL SIGNS: Pressure is 129/63, pulse of 62, respirations 20, temperature 98. LUNGS: Diminished breath sounds. HEART: Regular. ABDOMEN: Obese, still with some abdominal wall edema as well as anasarca with evidence of edema around her thighs. EXTREMITIES: Lower leg edema seems to be a little bit better after the second dialysis that she received. Stress test was negative. MRSA nares was negative. ASSESSMENT AND PLAN: 1. Acute diastolic congestive heart failure from noncompliance with her diet as well as overall noncompliance with dialysis and poor insight to medical problems. The patient is definitely improved with extra dialysis that she received. 2. Precordial chest pain, ruled out myocardial infarction, negative stress test. 3. End-stage renal failure, on dialysis. We will discharge the patient tomorrow. MELISSA CORTES MD CM:PNTRANS [phone] MELISSA CORTES MD 07/10/17 0854 interface
--- NOTE | ~2017-07-08 | DS ---
[place], [place] DISCHARGE SUMMARY NAME: KARTHIKEYAN MIDDLETON [facility] #: [id number] UNIT #: [id number] ROOM: 426 DOCTOR: MELISSA CORTES MD BIRTHDATE: [birth year] DOS: 07/11/2017 The patient is 51 years old. The patient was admitted to the hospital on 07/08/2017, discharged on 07/11/2017. DIAGNOSES: 1. Acute diastolic congestive heart failure, resolved. 2. Precordial chest pain, ruled out for myocardial infarction, negative stress test. 3. End-stage renal failure, on dialysis. 4. Noncompliance to diet. 5. Poor insight to medical problems. 6. Type 2 diabetes mellitus, insulin-dependent. 7. Chronic pain. 8. Recent history of MediPort placement. 9. History of septic joint, right knee. She is on cefepime, it should be finished on 07/15, completing 6 weeks of antibiotics. Negative blood cultures. 10. CT of the chest showing volume overload and mildly enlarged mediastinal lymph nodes, most likely reactive, needs to be followed up as an outpatient with a repeat CT scan in about 3 months. This patient is 51 years old, comes in on 07/08 with complaints of obtunded, lethargic state and chest pain. She came from [facility] with complaint of chest pain, was seen in the Emergency Room, was given 2 doses of morphine. By the time I saw the patient, the patient was lethargic and obtunded. An ABG showed hypercapnia, was placed on BiPAP for hypercapnic respiratory failure. The patient was taken off all her pain medications, did have a low dose hydroxyzine and Tylenol for pain control. Nephrology consultation and Cardiology consultation was obtained. The patient was scheduled for a stress test by warehouse helper that has come back negative. A CT of the chest shows volume overload with mediastinal lymph nodes, possibly reactive. She did have a fall here while ambulating to the bathroom and hit her knee. X-rays shows no evidence of effusion or fractures. The patient does complain of knee pain which is chronic. She has also had severe anasarca from overeating as well as eating the wrong foods like pizza and refusing dialysis. The patient was taken for dialysis multiple times, along with extra dialysis; yesterday, had about 5 liters of fluid removed. This morning, the patient is stable and is not having any new problems. Blood cultures all negative, so she can go off the cefepime on 07/15 after completing 6 weeks of IV antibiotics. The patient to go back to [facility]. DISCHARGE MEDICATIONS: [place] 5 daily p.r.n.; hydroxyzine 10 twice a day p.r.n.; brimonidine 2 drops to each eye twice a day; calcium acetate 667 three times a day and 667 at bedtime; cefepime 0.5 g IV on Saturday, Saturday, Fridays after dialysis is completed and that should be done around 07/15; DuoNeb q.i.d. p.r.n.; oxygen 2 liters, titrate for pulse ox more than 92; Coreg 12.5 mg twice a day; 5 at bedtime, Xalatan 10 eyedrops at bedtime, Lyrica 200 t.i.d., timolol one drop b.i.d., Tylenol 650 q. 6 p.r.n.; zinc 220 daily; Zofran 4 mg q. 6 p.r.n.; sertraline 50 daily. [place], [place] DISCHARGE SUMMARY NAME: [facility] [id number] UNIT #: [id number] ROOM: 426 DOCTOR: MELISSA CORTES MD BIRTHDATE: [birth year] MELISSA CORTES MD CM:DISCHARG 0 MELISSA CORTES MD 07/11/1742 interface
--- NOTE | ~2017-07-08 | WRIGHTHP ---
[place], [place] PATIENT HISTORY AND PHYSICAL EXAM NAME: KARTHIKEYAN MIDDLETON [facility] #: [id number] UNIT #: [id number] ROOM: 426 DOCTOR: MELISSA CORTES MD BIRTHDATE: [birth year] DOS: 07/08/2017 HISTORY OF PRESENT ILLNESS: The patient is a 51-year-old. The patient comes in with complaints of chest pain. The patient was seen in the Emergency Room, was given 2 doses of morphine. This morning, the patient is quite obtunded, almost lethargic, does wake up chronic disease epidemiologist, tries to answer questions, and easily slips back into sleep. She looks extremely swollen. She denies having any chest pains or palpitations right now. She had some chest pains during the night. Does not have any fever or chills. The patient developed this chest pain at the long term where she resides. The pain woke her up from sleep, so she was brought to the Emergency Room. The patient denies getting any take-outs but her mother, who was present, does say that the patient has been getting take-outs from local restaurants and yesterday, she had pizza ordered out. PAST MEDICAL HISTORY: Significant for, 1. End-stage renal disease, on dialysis. 2. Type 2 diabetes mellitus, poorly-controlled. Last hospitalization in 05/2017 with osteomyelitis of the big toe and septic joint of the right knee. She underwent surgery and was placed on IV antibiotics and was sent to [facility] where she has been for almost 3 weeks. She just was released from there to the long term. 3. Noncompliance with poor insight to medical problems. 4. Chronic street drug usage. 5. Hypothyroidism. MEDICATIONS: She is currently on are Ventolin 2 puffs q.i.d.; cefepime, Saturday, Saturday and Saturday for wound infection; primidone eyedrops; Xalatan eyedrops; timolol eyedrops; vitamin D twice a day; calcium acetate 667 mg t.i.d. with meals; Coreg 12.5 mg b.i.d. on nondialysis days; Pepcid 20 daily; levothyroxine 25 mcg daily; Lyrica 200 mg t.i.d.; rosuvastatin 5 mg at bedtime. SOCIAL HISTORY: Nonsmoker, does not use any alcohol. She is a resident of [facility]. PHYSICAL EXAMINATION: GENERAL: She is awake and alert and oriented to time, place and person, but easily slips back into sleep and appears lethargic at other times when she is not conversing. VITAL SIGNS: Graphic trend shows a pressure of 120/78, pulse is 66, respirations 20, and temperature 98.4. LUNGS: Diminished breath sounds. No wheezes, rales, or rhonchi heard. HEART: Regular. ABDOMEN: Obese. EXTREMITIES: About 2-3+ pitting edema bilaterally. In the right foot, there is a wound on the dorsal aspect of the foot below the right big toe. This seems to be stage IV with no surrounding redness or cellulitis. ASSESSMENT AND PLAN: 1. The patient admitted with chest pain, rule out myocardial infarction protocol was started. Cardiology consultation was obtained. [place], [place] PATIENT HISTORY AND PHYSICAL EXAM NAME: KARTHIKEYAN MIDDLETON UNIT #: [id number] ROOM: 426 DOCTOR: MELISSA CORTES MD BIRTHDATE: [birth year] 2. End-stage renal failure, on dialysis. 3. Lethargic, obtunded status with significant volume overload. A CT of the chest will be ordered. The patient will be encouraged to stop eating take-outs. 4. Chronic drug dependency issues. Avoid narcotics. Discussed with the patient's mother in detail. 5. Type 2 diabetes mellitus. She is currently not insulin-dependent. Blood sugars to be checked twice daily. MELISSA CORTES MD CM:HISPHYS:PATIENT HISTORY AND PHYSICAL EXAMINATION 0 3 MELISSA CORTES MD 07/08/17921 interface
--- NOTE | ~2017-07-08 | PR ---
[place], [place] PROGRESS NOTE [id number] UN[facility] #: [id number] ROOM: 426 DOCTOR: MELISSA CORTES MD BIRTHDATE: [birth year] DOS: 07/11/2017 SUBJECTIVE: The patient complains of discomfort in her legs. She denies having any chest pains or palpitations. OBJECTIVE: GENERAL: Today she is awake and alert and oriented. VITAL SIGNS: Graphic trend shows blood pressure of 98/52, pulse of 66, respirations 18, temperature 97.8. LUNGS: Diminished breath sounds, clear. HEART: Regular. ABDOMEN: Obese with some evidence of anasarca and swelling of upper thighs. EXTREMITIES: Without any edema. Knee, there is no evidence of any acute problems. Minimal tenderness of both knee joints. ASSESSMENT AND PLAN: 1. Chest pain, precordial. Stress test was done which was negative. Echocardiogram showed normal left ventricular function in the past. 2. Acute diastolic congestive heart failure, possibly from noncompliance to diet as well as refusing dialysis. She was dialyzed and had about 5 liters removed yesterday. 3. Recent septic joint of the right knee, on Ceftin, which will be continued. The patient's blood cultures have come back negative. 4. Chronic pain. A low dose of [place] was started. The patient to go back to halfway today. MELISSA CORTES MD CM:PNTRANS [id number] MELISSA CORTES MD 07/11/17 0932 interface
[2017-07-08 03:16] LABS: HEMATOCRIT 27.4 % (37.0-47.0); HEMOGLOBIN 8.4 g/dl (12.0-16.0); MEAN CELL VOLUME 95.8 fl (81.0-99.0); MEAN CORPUSCULAR HGB 29.4 pg (27.0-31.0); MEAN CORPUSCULAR HGB CONC 30.7 g/dl (33.0-37.0); MEAN PLATELET VOLUME 10.1 fl (9.6-12.3); NUCLEATED RED BLOOD CELL 0.1 10*3/uL (0.0-0.0); NUCLEATED RED BLOOD CELL 0.8 % (0.0-0.0); PLATELET COUNT AUTOMATED 166 10*3/uL (130-400); RED BLOOD COUNT 2.86 10*6/uL (4.10-5.10); RED CELL DISTRI WIDTH 17.5 % (0-14.5); WHITE BLOOD COUNT 11.9 10*3/uL (4.8-10.8)
[2017-07-08 03:27] LABS: ACT PARTIAL THROMBO TIME 27.1 SECONDS (20.8-31.5); INTERNATIONAL NORM RATIO 1.1 (2.0-3.5)
[2017-07-08 03:35] LABS: ALBUMIN 3.1 gm/dl (3.1-4.5); ALKALINE PHOSPHATASE 140 U/L (45-117); BUN 67 mg/dl (7-24); CHLORIDE 95 mmol/L (98-107); CREATININE 7.16 mg/dL (0.55-1.02); POTASSIUM 5.5 mmol/L (3.5-5.1); SGOT/AST 19 IU/L (3-35); SGPT/ALT 24 U/L (12-78); SODIUM 132 mmol/L (136-145); TOTAL PROTEIN 8.6 gm/dL (6.4-8.2)
[2017-07-08 03:39] LABS: PLATELET SUFFICIENCY NORMAL (NORMAL); TOTAL CELLS COUNTED 100 #CELLS
[2017-07-08 03:40] LABS: TROPONIN I < 0.015 ng/ml (<0.045)
[2017-07-08] MEDS ORDERED: Bactroban Oint22 GM T (04:01)
[2017-07-08] MEDS ORDERED: CALCIUM ACETAT667 MG PO (04:02)
[2017-07-08] MEDS ORDERED: BRIMONIDINE TART5 ML OPH (04:02)
[2017-07-08] MEDS ORDERED: CALPHRON667 MG PO (04:03)
[2017-07-08] MEDS ORDERED: COREG12.5 M1 PO ×2 (04:04→04:05)
[2017-07-08] MEDS ORDERED: CEFEPIME-D2 GM/50 ML IV (04:04)
[2017-07-08] MEDS ORDERED: DULCOLAX10 M1 R (04:05)
[2017-07-08] MEDS ORDERED: CRESTOR5 MG PO (04:05)
[2017-07-08] MEDS ORDERED: GOOD NEIGHBOR P20 MG PO (04:06)
[2017-07-08] MEDS ORDERED: GLUCAGON EMERGEN1 M1 IM (04:07)
[2017-07-08] MEDS ORDERED: HUMALOG KW200 UNIT/1 SQ (04:08)
[2017-07-08] MEDS ORDERED: GLUCOSE33 GM PO (04:08)
[2017-07-08] MEDS ORDERED: HUMULIN R500 UNIT/1 SQ (04:10)
[2017-07-08] MEDS ORDERED: LANTUS SOL100 UNIT/1 SQ (04:10)
[2017-07-08] MEDS ORDERED: XALATAN 0.005%2.5 ML OS (04:11)
[2017-07-08] MEDS ORDERED: LYRICA200 M1 PO (04:11)
[2017-07-08] MEDS ORDERED: REGLAN5 MG PO (04:11)
[2017-07-08] MEDS ORDERED: NEPHRO-VITE TA0.8 MG PO (04:11)
[2017-07-08] MEDS ORDERED: SYNTHROID25 MCG PO (04:12)
[2017-07-08] MEDS ORDERED: TYLENOL325 M1 PO (04:13)
[2017-07-08] MEDS ORDERED: TIMOLOL MALEATE OU (04:13)
[2017-07-08] MEDS ORDERED: [UNRECOGNIZED DRUG - OTHER] PO (04:14)
[2017-07-08] MEDS ORDERED: ZINC-220220 MG PO (04:14)
[2017-07-08] MEDS ORDERED: VITAMIN C PO (04:14)
[2017-07-08] MEDS ORDERED: VENTOLIN 02.5 MG/3 M INH (04:14)
[2017-07-08] MEDS ORDERED: ZOLOFT50 MG PO (04:15)
[2017-07-08] MEDS ORDERED: ZOFRAN4 MG PO (04:15)
[2017-07-08 15:55] LABS: ABG BASE EXCESS -2.9 mmol/L (-2.0-2.0); ABG HCO3 23.6 mmol/l (22-26); ABG O2 SATURATION 94.6 % (95-97); ARTERIAL BLOOD GAS PCO2 53.7 mmHg (35-45); ARTERIAL BLOOD GAS PH 7.265 (7.35-7.45); ARTERIAL BLOOD GAS PO2 98.4 mmHg (80-90)
[2017-07-09] VITALS: BP 103/61
[2017-07-09 07:03] LABS: ALBUMIN 3.1 gm/dl (3.1-4.5); CREATININE 6.41 mg/dL (0.55-1.02); PHOSPHOROUS 7.2 mg/dL (2.5-4.9); POTASSIUM 4.6 mmol/L (3.5-5.1)
[2017-07-09 08:00] VITALS: BP 153/82; BP 80/40
[2017-07-09 12:00] VITALS: BP 117/66
[2017-07-09 16:00] VITALS: BP 91/68
[2017-07-10] VITALS: BP 129/63
[2017-07-10 06:50] LABS: ALBUMIN 3.1 gm/dl (3.1-4.5); PHOSPHOROUS 8.7 mg/dL (2.5-4.9)
[2017-07-10 06:54] LABS: CREATININE 7.62 mg/dL (0.55-1.02); POTASSIUM 5.1 mmol/L (3.5-5.1)
[2017-07-10 08:00] VITALS: BP 96/42
[2017-07-10 12:00] VITALS: BP 109/54
[2017-07-10 16:00] VITALS: BP 133/59
[2017-07-10 20:08] VITALS: BP 131/62
[2017-07-11] VITALS: BP 98/52
[2017-07-11 08:00] VITALS: BP 114/61; BP 95/56
[2017-07-11] MEDS ORDERED: ATARAX,VISTARIL10 MG PO (08:08)
[2017-07-11 08:27] LABS: ALBUMIN 3.2 gm/dl (3.1-4.5); CREATININE 5.57 mg/dL (0.55-1.02); PHOSPHOROUS 7.2 mg/dL (2.5-4.9); POTASSIUM 4.4 mmol/L (3.5-5.1)
== END 2017-07-11 11:30 | DRG 291 ==
LOC: ED 02:35 → EDHOLD 03:59 → 4E 03:59
PROVIDERS: Emergency Medicine Emergency Medical Services; Internal Medicine Cardiovascular Disease; Student in an Organized Health Care Education/Training Program
PROC: 5A1D70Z Performance of Urinary Filtration, Intermittent, Less than 6 Hours Per Day (ICD-10-PCS; 2017-07-08)
PROC: 4A02XM4 Measurement of Cardiac Total Activity, External Approach (ICD-10-PCS; principal; 2017-07-09)
PROC: 3E073KZ Introduction of Other Diagnostic Substance into Coronary Artery, Percutaneous Approach (ICD-10-PCS; 2017-07-09)
PROC: 5A1D70Z Performance of Urinary Filtration, Intermittent, Less than 6 Hours Per Day (ICD-10-PCS; 2017-07-09)
PROC: 5A1D70Z Performance of Urinary Filtration, Intermittent, Less than 6 Hours Per Day (ICD-10-PCS; 2017-07-10)
PROC: 5A09357 Assistance with Respiratory Ventilation, Less than 24 Consecutive Hours, Continuous Positive Airway Pressure (ICD-10-PCS; 2017-07-11)
DX: I13.0 Hypertensive heart and chronic kidney disease with heart failure and stage 1 through stage 4 chronic kidney disease, or unspecified chronic kidney disease (principal); J96.92 Respiratory failure, unspecified with hypercapnia; E44.0 Moderate protein-calorie malnutrition; E11.22 Type 2 diabetes mellitus with diabetic chronic kidney disease; M86.8X7 Other osteomyelitis, ankle and foot; E66.01 Morbid (severe) obesity due to excess calories; N18.6 End stage renal disease; I50.33 Acute on chronic diastolic (congestive) heart failure; Z68.41 Body mass index [BMI] 40.0-44.9, adult; R07.2 Precordial pain; E11.42 Type 2 diabetes mellitus with diabetic polyneuropathy; E87.8 Other disorders of electrolyte and fluid balance, not elsewhere classified; E11.65 Type 2 diabetes mellitus with hyperglycemia; E83.41 Hypermagnesemia; Y92.238 Other place in hospital as the place of occurrence of the external cause; E87.5 Hyperkalemia; E03.9 Hypothyroidism, unspecified; G89.4 Chronic pain syndrome; L97.519 Non-pressure chronic ulcer of other part of right foot with unspecified severity; F41.1 Generalized anxiety disorder; E78.5 Hyperlipidemia, unspecified; F17.210 Nicotine dependence, cigarettes, uncomplicated; G47.33 Obstructive sleep apnea (adult) (pediatric); J44.9 Chronic obstructive pulmonary disease, unspecified; D72.829 Elevated white blood cell count, unspecified; R59.0 Localized enlarged lymph nodes; D64.9 Anemia, unspecified; W18.30XA Fall on same level, unspecified, initial encounter; Y93.89 Activity, other specified; Z79.899 Other long term (current) drug therapy; Z88.1 Allergy status to other antibiotic agents; Z99.2 Dependence on renal dialysis; Y99.8 Other external cause status; Z91.013 Allergy to seafood; Z91.15 Patient's noncompliance with renal dialysis; Z91.11 Patient's noncompliance with dietary regimen; Z91.041 Radiographic dye allergy status; Z79.4 Long term (current) use of insulin; Z99.81 Dependence on supplemental oxygen; Z98.51 Tubal ligation status; Z83.3 Family history of diabetes mellitus; Z80.0 Family history of malignant neoplasm of digestive organs; Z84.89 Family history of other specified conditions; Z91.14 Patient's other noncompliance with medication regimen

== ENCOUNTER 2017-07-16 11:23 | Inpatient (IN) | payer MEDICARE, MEDICAID ==
[~2017-07-16] VITALS: Ht 162.6 cm; Wt 109.5 kg
--- NOTE | ~2017-07-16 | PR ---
[place], [place] PROGRESS NOTE NAME: KARTHIKEYAN MIDDLETON [facility] #: [id number] UNIT #: [id number] ROOM: 516 DOCTOR: FILIPE RUBI DPM BIRTHDATE: [birth year] DOS: 07/18/2017 SUBJECTIVE: The patient was seen for followup of ulcerations, bilateral foot. OBJECTIVE: There is decreased edema and erythema to the left forefoot compared to previous exam 2 days ago. The ulceration, plantar fifth left MPJ is improving. No signs of acute abscess noted. The ulceration also overlying the first right MPJ has improved with decreased drainage and improved granulation from Saturday. Results of the CT scan revealed no abscess or osteomyelitis. Review of radiographs compared to previous radiographs within the system appears that the noted foreign body piece of metal at the base of the fifth right toe appears to have been present for an extended amount of time and does not appear to be clinically correlating at this time. The cellulitis and infection more than likely was from the ulceration. ASSESSMENT: Ulceration fifth left MPJ, first right MPJ, with cellulitis. PLAN: Continue antibiotics per Infectious Disease. Continue local wound care. Discussed with the patient at this time, I do not feel removal of the metal fragment is warranted as it appears to be chronic in nature and a CT scan was negative for underlying abscess or osteomyelitis. We will continue to treat the patient conservatively, especially considering her decreased vascular supply and will reappoint with the patient tomorrow with Dr. Barahona for possible discharge at that time. FILIPE RUBI DPM CM:PNTRANS [id number] FILIPE RUBI DPM 07/18/17 1327 interface
--- NOTE | ~2017-07-16 | PR ---
[place], [place] PROGRESS NOTE NAME: [facility] [id number] UNIT #: [id number] ROOM: 516 DOCTOR: MAIA AGUILAR MD BIRTHDATE: [birth year] DOS: SUBJECTIVE: The patient is overall feeling somewhat better today. She is being followed by the foot doctor, Dr. RUBI. The patient with foreign body in the fifth digit of her left foot. OBJECTIVE: VITAL SIGNS: Blood pressure 115/63, heart rate 65 beats per minute, breathing 16 times per minute, temperature 98 degrees Fahrenheit. GENERAL APPEARANCE: The patient is alert and oriented x 3, in no visible distress. HEENT AND NECK: Exam within normal limits. CARDIOVASCULAR SYSTEM: Heart rate is regular in rate and rhythm. S1 and S2 normally audible. LUNGS: Clear to auscultation. ABDOMEN: Soft, nontender. No obvious organomegaly. Bowel sounds are present. EXTREMITIES: Obesity with bilateral heel ulcers and also toe ulcers, some redness and swelling in both legs. IMPRESSION: 1. The patient with a needle in the fifth digit of the left foot, being seen by Podiatry for foreign body removal. 2. Chronic diastolic type congestive heart failure, compensated. No increasing shortness of breath. 3. Uncontrolled type 2 diabetes mellitus, insulin-dependent. Blood sugars have been monitored and treated. 4. Poor compliance with treatment. 5. Chronic pain syndrome. The patient is requesting to use hydrocodone for significant pains in her left foot. 6. The patient with end-stage kidney disease, remains on hemodialysis, which will be continued. MAIA AGUILAR MD CM:PNTRANS 1630 02 MAIA AGUILAR MD 07/17/172002 interface
--- NOTE | ~2017-07-16 | WRIGHTHP ---
[place], [place] PATIENT HISTORY AND PHYSICAL EXAM NAME: KARTHIKEYAN MIDDLETON [facility] #: [id number] UNIT #: [id number] ROOM: 516 DOCTOR: MAIA AGUILAR MD BIRTHDATE: [birth year] DOS: 07/16/2017 See last dictation for history and meds. HISTORY OF PRESENT ILLNESS: The patient is a 51-year-old female with a past medical history of chronic diastolic type congestive heart failure, end-stage kidney failure. The patient is on hemodialysis, noncompliance for treatment and diet, poor insight into medical problems, insulin-requiring type 2 diabetes mellitus, chronic pain syndrome, MediPort placement, diabetic toe ulcers. The patient was sent over by her transmissions systems operator, Dr. Smith for newly discovered foreign body in the fifth digit of her left foot. The patient has no other new issues. No increased shortness of breath. No other GI or urinary symptoms. REVIEW OF SYSTEMS: LUNGS: No increasing shortness of breath. GASTROINTESTINAL: No nausea, vomiting, diarrhea or constipation. CARDIOVASCULAR: No chest pains or palpitations.p FAMILY HISTORY: Noncontributory. SOCIAL HISTORY: Advanced adult failure to thrive. Denies smoking cigarettes, alcohol and drug abuse, but she does have chronic recorded history of drug abuse. OTHER DIAGNOSIS: Mixed hyperlipidemia. ADDENDUM DIAGNOSES: 1. The patient with a past medical history of chronic diastolic type congestive heart failure. 2. End-stage kidney disease, patient on hemodialysis. 3. Noncompliance with diet. 4. Previous history of drug abuse including cocaine. 5. Type 2 diabetes mellitus, insulin requiring, uncontrolled. 6. Chronic pain syndrome. 7. MediPort placement for better IV access. 8. Generalized anxiety disorder. 9. Glaucoma for which patient takes eye drops. HISTORY OF PRESENT ILLNESS: The patient was sent over by her foot doctors when they found a foreign body embedded in the fifth digit of her left foot on an x-ray which looked like a needle. No increasing chest pain, no increasing shortness of breath, no GI or urinary symptoms; otherwise, systems review is already there in my last dictation. HOME MEDICATIONS: From [facility] are [place], hydroxyzine, brimonidine, calcium acetate, cefepime IV, oxygen, Xalatan eye drops, Lyrica, Coreg, DuoNebs, Tylenol, zinc, Zofran, Coreg. [place], [place] PATIENT HISTORY AND PHYSICAL EXAM NAME: KARTHIKEYAN MIDDLETON [facility] #: [id number] UNIT #: [id number] ROOM: 516 DOCTOR: MAIA AGUILAR MD BIRTHDATE: [birth year] PHYSICAL EXAMINATION: GENERAL: Alert, oriented times 3, obese. VITAL SIGNS: Blood pressure 104/49, heart rate 66 beats per minute, breathing 16 times per minute, afebrile. HEENT AND NECK: Extraocular movements are intact. Sclerae are anicteric. Oral mucosa is moist and clean. No obvious facial weakness. Neck is supple without any lymphadenopathy. No thyromegaly. No JVD. No carotid arterial bruits. LUNGS: Clear to auscultation. No wheezing. No rhonchi. CARDIOVASCULAR SYSTEM: Heart rate is regular in rate and rhythm. S1 and S2 normally audible. No significant murmur or any other abnormal cardiac sounds. ABDOMEN: Soft, nontender. No obvious organomegaly. Bowel sounds are present. No obvious herniation. EXTREMITIES: She has chronic ulcerations on toes of both feet with some redness and swelling of the left foot and ankle. CENTRAL NERVOUS SYSTEM: Alert and oriented times 3. Cranial nerves II-XII are intact. Speech is normal. The patient is able to move all extremities. Normal muscle strength. Deep tendon reflexes are equal on both sides. Plantars were downgoing. IMPRESSION: 1. Foreign body in the left foot fifth toe for which she is being followed by Dr. Smith. I am consulting the foot doctors from his group. 2. Uncontrolled type 2 diabetes mellitus. Blood sugars will be monitored and treated. The patient continued on insulin. 3. Chronic pain syndrome with peripheral polyneuropathy. I will keep her on hydrocodone. 4. End-stage kidney failure. The patient on hemodialysis, which is being continued. 5. History of coronary artery disease of the tanana vessels without chest pains. 6. Compensated chronic diastolic type congestive heart failure. MAIA AGUILAR MD CM:HISPHYS:PATIENT HISTORY AND PHYSICAL EXAMINATION 40 20 MAIA AGUILAR MD 07/18/17 7004 interface
--- NOTE | ~2017-07-16 | DS ---
[place], [place] DISCHARGE SUMMARY NAME: KARTHIKEYAN MIDDLETON [facility] #: [id number] UNIT #: [id number] ROOM: 516 DOCTOR: MAIA AGUILAR MD BIRTHDATE: [birth year] DOS: 07/18/2017 DISCHARGE DIAGNOSES: 1. The patient with discharged diagnosis of suspected foreign body in the fifth digit of her left toe, which is actually a remnant of previous implant where she had previous foot surgery, evaluated by Dr. RUBI. 2. Chronic diastolic type congestive heart failure, compensated. 3. Uncontrolled type 2 diabetes mellitus, insulin requiring, poor compliance with treatment. 4. Chronic pain syndrome. 5. End-stage kidney disease. The patient remains on hemodialysis. 6. History of MediPort placement for IV access. 7. History of diabetic toe ulcers. HOSPITAL COURSE: The patient was requested for admission and further management by her machine pack assembler, Dr. RUBI for suspected foreign body seen in the fifth digit of her left toe in his office on an x-ray. When reviewed, Dr. RUBI found this to be a remnant of a surgical implant in the past. The patient does have history of chronic osteomyelitis and remains on antibiotics given by Dr. RUBI, but otherwise she is asymptomatic and being discharged back to the half-way. Chronic diastolic type CHF, compensated. End-stage chronic kidney disease. The patient remained on hemodialysis. Poor compliance with diet and obesity. The patient with previous history of drug abuse including cocaine abuse. Type 2 diabetes mellitus, uncontrolled, requiring insulin. The patient's blood sugars were monitored and treated accordingly. Chronic pain syndrome. The patient was insisting on pain treatment, was kept on hydrocodone which she says she had been taking in the past for a very long time. Generalized anxiety disorder, treated and controlled. Glaucoma, for which the patient uses eye drops. DISCHARGE MANAGEMENT: Calcium acetate 1334 mg t.i.d., ondansetron ODT 8 mg every 6 hours p.r.n. for nausea and vomiting, famotidine 20 mg a day, Zoloft 50 mg a day, Coreg 12.5 mg daily, timolol eyedrops 1 drop b.i.d., levothyroxine 25 mcg daily, Coreg 12.5 mg at bedtime, metoclopramide 5 mg b.i.d., Levemir insulin 15 units at bedtime, latanoprost eyedrops 1 drop to affected eye at bedtime, brimonidine eyedrops 1 drop to affected eye b.i.d., hydroxyzine 10 mg b.i.d. p.r.n. for anxiety, cefuroxime IV 2 grams daily. Check with doctor GREYSON for how long to continue the antibiotics and the patient is to follow up with her Dr. RUBI. Lyrica 200 mg b.i.d., Vicodin 5 mg/325 mg every 8 hours as needed for pain. [place], [place] DISCHARGE SUMMARY NAME: KARTHIKEYAN MIDDLETON UNIT #: [id number] ROOM: 516 DOCTOR: MAIA AGUILAR MD BIRTHDATE: [birth year] MAIA AGUILAR MD CM:CLIFTON [id number] [phone] MAIA AGUILAR MD 07/18/171901 interface
[~2017-07-16 11:23] MED LIST changes: +ATARAX,VISTARIL10 MG PO; +BRIMONIDINE TART5 ML OPH; +Bactroban Oint22 GM T; +CALPHRON667 MG PO; +CEFEPIME-D2 GM/50 ML IV; +FAMOTIDINE20 M1 PO; +GLUCAGON EMERGEN1 M1 IM; +GLUCOSE33 GM PO; +HUMALOG KW200 UNIT/1 SQ; +HUMULIN R500 UNIT/1 SQ; +LANTUS SOL100 UNIT/1 SQ; +NEPHRO-VITE TA0.8 MG PO; +REGLAN5 MG PO; +SYNTHROID25 MCG PO; +TIMOLOL MALEATE OU; +VENTOLIN 02.5 MG/3 M INH; +VITAMIN C PO; +XALATAN 0.005%2.5 ML OS; +ZINC-220220 MG PO; +[UNRECOGNIZED DRUG - OTHER] PO
[2017-07-16 11:31] VITALS: BP 104/49
[2017-07-16 12:09] LABS: BASO # 0.1 10*3/uL (0.0-0.1); BASO % 0.5 % (0.0-1.0); EOS # 0.2 10*3/uL (0.0-0.4); EOS % 2.4 % (1.0-4.0); HEMATOCRIT 29.4 % (37.0-47.0); HEMOGLOBIN 8.8 g/dl (12.0-16.0); LYMPH # 0.8 10*3/uL (1.3-4.4); LYMPH % 8.2 % (27.0-41.0); MEAN CORPUSCULAR HGB 29.3 pg (27.0-31.0); MEAN CORPUSCULAR HGB CONC 29.9 g/dl (33.0-37.0); MEAN PLATELET VOLUME 11.3 fl (9.6-12.3); MONO # 1.4 10*3/uL (0.1-1.0); MONO % 13.9 % (3.0-9.0); NEUT # 7.4 10*3/uL (2.3-7.9); NEUT % 74.4 % (47.0-73.0); NUCLEATED RED BLOOD CELL 0.4 % (0.0-0.0); PLATELET COUNT AUTOMATED 179 10*3/uL (130-400); RED CELL DISTRI WIDTH 17.5 % (0-14.5); WHITE BLOOD COUNT 9.9 10*3/uL (4.8-10.8)
[2017-07-16 12:24] LABS: ALBUMIN 3.2 gm/dl (3.1-4.5); CREATININE 6.43 mg/dL (0.55-1.02); POTASSIUM 4.6 mmol/L (3.5-5.1); TOTAL PROTEIN 8.9 gm/dL (6.4-8.2)
[2017-07-16 17:15] VITALS: BP 110/61
[2017-07-16] MEDS ORDERED: NOVOLOG100 UNIT/1 SQ (18:15)
[2017-07-16] MEDS ORDERED: TIMOLOL MALEATE5 M7 OP (18:18)
[2017-07-16] MEDS ORDERED: LEVEMIR100 UNIT/1 SC (18:25)
[2017-07-16] MEDS ORDERED: NORCO 5-325 TA1 EACH PO (18:30)
[2017-07-16] MEDS ORDERED: CEFEPIME-D1 GM/50 ML IV (18:34)
[2017-07-16 20:00] VITALS: BP 115/63
[2017-07-17 08:00] VITALS: BP 98/58
[2017-07-17 09:01] LABS: BASO # 0.1 10*3/uL (0.0-0.1); BASO % 0.5 % (0.0-1.0); EOS # 0.2 10*3/uL (0.0-0.4); EOS % 2.6 % (1.0-4.0); HEMATOCRIT 29.7 % (37.0-47.0); HEMOGLOBIN 8.9 g/dl (12.0-16.0); LYMPH # 0.8 10*3/uL (1.3-4.4); LYMPH % 8.1 % (27.0-41.0); MEAN CORPUSCULAR HGB 29.4 pg (27.0-31.0); MEAN PLATELET VOLUME 11.2 fl (9.6-12.3); MONO # 1.3 10*3/uL (0.1-1.0); MONO % 14.2 % (3.0-9.0); NEUT % 74.2 % (47.0-73.0); NUCLEATED RED BLOOD CELL 0.3 % (0.0-0.0); PLATELET COUNT AUTOMATED 178 10*3/uL (130-400); RED BLOOD COUNT 3.03 10*6/uL (4.10-5.10); RED CELL DISTRI WIDTH 17.6 % (0-14.5); WHITE BLOOD COUNT 9.4 10*3/uL (4.8-10.8)
[2017-07-17 09:13] LABS: ALBUMIN 3.2 gm/dl (3.1-4.5); CREATININE 7.76 mg/dL (0.55-1.02); POTASSIUM 5.4 mmol/L (3.5-5.1)
[2017-07-17 09:22] LABS: PHOSPHOROUS 8.2 mg/dL (2.5-4.9)
[2017-07-17 16:00] VITALS: BP 113/50
[2017-07-17 20:00] VITALS: BP 133/67
[2017-07-18 06:27] LABS: ALBUMIN 3.1 gm/dl (3.1-4.5); CREATININE 5.72 mg/dL (0.55-1.02); PHOSPHOROUS 6.9 mg/dL (2.5-4.9); POTASSIUM 5.1 mmol/L (3.5-5.1)
[2017-07-18 08:00] VITALS: BP 113/49
[2017-07-18 16:00] VITALS: BP 105/40
[2017-07-18] MEDS ORDERED: OMNICEF300 MG PO (16:58)
[2017-07-18] MEDS ORDERED: DOXYCYCLINE100 M3 PO (16:58)
== END 2017-07-18 19:05 | DRG 919 ==
LOC: ED 11:23 → EDHOLD 15:59 → 5E 15:59
PROVIDERS: Emergency Medicine; Internal Medicine Nephrology; Student in an Organized Health Care Education/Training Program
PROC: 5A1D70Z Performance of Urinary Filtration, Intermittent, Less than 6 Hours Per Day (ICD-10-PCS; principal; 2017-07-17)
DX: T81.590A Other complications of foreign body accidentally left in body following surgical operation, initial encounter (principal); L89.893 Pressure ulcer of other site, stage 3; I13.2 Hypertensive heart and chronic kidney disease with heart failure and with stage 5 chronic kidney disease, or end stage renal disease; E11.22 Type 2 diabetes mellitus with diabetic chronic kidney disease; E11.51 Type 2 diabetes mellitus with diabetic peripheral angiopathy without gangrene; L03.116 Cellulitis of left lower limb; E11.621 Type 2 diabetes mellitus with foot ulcer; E66.01 Morbid (severe) obesity due to excess calories; N18.6 End stage renal disease; I50.32 Chronic diastolic (congestive) heart failure; L97.518 Non-pressure chronic ulcer of other part of right foot with other specified severity; L89.892 Pressure ulcer of other site, stage 2; L08.9 Local infection of the skin and subcutaneous tissue, unspecified; L97.529 Non-pressure chronic ulcer of other part of left foot with unspecified severity; E83.39 Other disorders of phosphorus metabolism; G89.4 Chronic pain syndrome; H40.9 Unspecified glaucoma; F41.1 Generalized anxiety disorder; F14.10 Cocaine abuse, uncomplicated; E78.5 Hyperlipidemia, unspecified; D64.9 Anemia, unspecified; F17.210 Nicotine dependence, cigarettes, uncomplicated; Z80.0 Family history of malignant neoplasm of digestive organs; Z68.24 Body mass index [BMI] 24.0-24.9, adult; Z91.041 Radiographic dye allergy status; Z91.013 Allergy to seafood; Z88.1 Allergy status to other antibiotic agents; Z79.4 Long term (current) use of insulin; Z99.2 Dependence on renal dialysis; Z79.51 Long term (current) use of inhaled steroids; Z79.899 Other long term (current) drug therapy; Z91.19 Patient's noncompliance with other medical treatment and regimen; Y92.89 Other specified places as the place of occurrence of the external cause; Y65.8 Other specified misadventures during surgical and medical care

== ENCOUNTER 2017-07-21 12:58 | Inpatient (IN) | payer MEDICARE, MEDICAID ==
[2017-07-21] VITALS (23 sets, daily range): BP systolic 107–138; BP diastolic 33–81
[~2017-07-21] VITALS: Ht 162.5 cm; Wt 107.1 kg
--- NOTE | ~2017-07-21 | DS ---
[place], [place] DISCHARGE SUMMARY NAME: KARTHIKEYAN MIDDLETON [facility] #: [id number] UNIT #: [id number] ROOM: 518 DOCTOR: MAIA AGUILAR MD BIRTHDATE: [birth year] DOS: 07/25/2017 DISCHARGE DIAGNOSES: 1. The patient with acute over chronic respiratory failure, treated. 2. Severe generalized anxiety disorder. 3. Acute over chronic kidney disease. The patient is on hemodialysis. 4. Moderate protein-calorie malnutrition. 5. Benign essential hypertension. 6. Chronic pain syndrome. 7. Type 2 diabetes mellitus. 8. Morbid obesity. 9. Cellulitis involving the left foot. 10. The patient is fluid volume overload and hyperkalemic from kidney failure, resolved. HOSPITAL COURSE: The patient presented to the Emergency Department at [facility] with increased swelling and also increased shortness of breath. The patient was found to be in acute over chronic respiratory failure and since she was requesting medications for anxiety and pain repeatedly, she was given Demerol and Ativan. Following this, she required intubation and mechanical ventilation. She was admitted to the ICU. After treatment in the ICU, she was weaned off mechanical ventilator and she was followed by protection chief industrial plant, Dr. Barr. The patient's breathing has improved, but she remains in chronic respiratory failure and requires oxygen. Arrangements have been made to send her to an LTAC facility for continued close observation. The patient discharge to the [facility] and residential facility has failed so far because she ends up in the hospital again very quickly after discharge, An LTAC facility would be a better choice to let her recover before she goes to a nursing facility. Advance adult failure to thrive, ischemic toes with multiple toe ulcers and recent cellulitis involving left foot. The patient is to continue antibiotics for 1 more week at the LTAC facility. Chronic pain syndrome, treated with Vicodin and controlled. Severe anxiety disorder, being treated and controlled. The patient will need a psych reevaluation. Severe hyperkalemia from kidney failure, resolved with hemodialysis. Moderate protein calorie malnutrition. The patient worked with Dietary and is encouraged to take protein supplements. Benign essential hypertension. Blood pressures are treated and controlled. Type 2 diabetes mellitus, uncontrolled. Blood sugars were monitored and treated. Morbid obesity. The patient worked with Dietary. [place], [place] DISCHARGE SUMMARY NAME: KARTHIKEYAN MIDDLETON UNIT #: [id number] ROOM: 518 DOCTOR: MAIA AGUILAR MD BIRTHDATE: [birth year] Chronic diastolic type CHF, compensated. Kidney failure. The patient remains on hemodialysis. LABORATORY DATA: White cell count 11,200, hemoglobin 8.5, normal platelets. Normal serum electrolytes. DISCHARGE MANAGEMENT: Calcium acetate 1334 mg t.i.d. with meals, hemodialysis 3 times a week, Zoloft 50 mg daily, famotidine 20 mg a day, Coreg 12.5 mg daily, metoclopramide 5 mg b.i.d., levothyroxine 25 mcg daily, Levemir insulin 15 units at bedtime, latanoprost eyedrops to left eye at bedtime, timolol eyedrops 1 drop each eye b.i.d., brimonidine eyedrops 1 drop each eye b.i.d., hydroxyzine 25 mg t.i.d. p.r.n. for anxiety, dose changed, albuterol inhaler 2 puffs q.i.d. p.r.n. for shortness of breath, Lyrica 200 mg b.i.d. Cefdinir 300 mg IV with dialysis, doxycycline 100 mg b.i.d. for a week, lorazepam 0.5 mg every 8 hours p.r.n. for anxiety, Vicodin 5/325 mg t.i.d. p.r.n. for pain. MAIA AGUILAR MD CM:DISCHARG [id number] MAIA AGUILAR MD 07/25/17 1640 interface
--- NOTE | ~2017-07-21 | PR ---
[place], [place] PROGRESS NOTE NAME: KARTHIKEYAN MIDDLETON [facility] #: [id number] UNIT #: [id number] ROOM: [facility] DOCTOR: MAIA AGUILAR MD BIRTHDATE: [birth year] DOS: 07/23/2017 SUBJECTIVE: The patient is more awake, although she is still somewhat groggy from receiving anxiolytics and pain medications that she requests regularly. OBJECTIVE: VITAL SIGNS: Blood pressure 115/50, heart rate of 66 beats per minute, breathing 18 times per minute, temperature of 98.7 degrees Fahrenheit. GENERAL APPEARANCE: The patient is alert and oriented x 3, in no visible distress, except for obesity. HEENT AND NECK: Exam within normal limits. CARDIOVASCULAR SYSTEM: Heart rate is regular in rate and rhythm. S1 and S2 normally audible. LUNGS: Somewhat decreased breath sounds. ABDOMEN: Soft, nontender. No obvious organomegaly. Bowel sounds are present. EXTREMITIES: Toe ulcerations which are chronic. IMPRESSION AND PLAN: 1. The patient with acute over chronic respiratory failure, made worse because she received Ativan and Demerol and required intubation and mechanical ventilation. The patient is off mechanical ventilation now and breathing much better. Arrangements have been made to send the patient out to LTAC facility tomorrow for continued care. Whenever the patient is discharged back to the nursing facility, she ends up back in the hospital with acute respiratory failure very quickly. The patient needs close supervision, which can be provided to her at LTAC facility for recovery. 2. Adult failure to thrive and suboptimal long-term prognosis. I will ask palliative care to follow her. 3. End-stage kidney failure. The patient remains on hemodialysis. 4. Severe hyperkalemia, resolved with treatment. Nephrology is following her electrolytes. The patient is also hypocalcemic. 5. Moderate protein-calorie malnutrition with albumin level of 2.7. 6. Advanced chronic obstructive pulmonary disease, treated with bronchodilators. 7. Acute respiratory failure and acute exacerbation of chronic obstructive pulmonary disease, improving with treatment as mentioned above. 8. Benign essential hypertension, with controlled blood pressures with treatment. 9. Severe anxiety disorder, followed and controlled. 10. Opioid and anxiolytic seeking behavior. I had a detailed discussion with the patient regarding sedative medications leading to her respiratory failure and also promoting her chronic respiratory failure and she understands. The patient's dose of Lyrica was reduced appropriately by Dr. Villasenor, the procedures analyst and the patient wants to take much higher doses, which are not safe for her. 11. Chronic pain syndrome. Medications being modified to keep her comfortable. 12. Glaucoma, treated with eyedrops. The patient remains on timolol, brimonidine and, latanoprost eyedrops. 13. Type 2 diabetes mellitus. Blood sugars are being monitored and treated. The patient remains on insulin. [place], [place] PROGRESS NOTE NAME: KARTHIKEYAN MIDDLETON UNIT #: [id number] ROOM: [facility] DOCTOR: LAUREN BERNAL,MAIA Gould BIRTHDATE: [birth year] 14. Morbid obesity. The patient is working with Dietary. 15. Fluid volume overload, treated with hemodialysis with extra fluid removal. 16. Cellulitis involving left foot, being followed by Infectious Disease specialist and treated. The patient also has followed up with wound center. 17. ____ congestive heart failure, but the patient has chronic diastolic type congestive heart failure with fluid volume overload, removed at dialysis and she is breathing better now. MAIA AGUILAR MD CM:MIRIAM 00 34 MAIA AGUILAR MD 07/23/172134 interface
--- NOTE | ~2017-07-21 | PR ---
[place], [place] PROGRESS NOTE NAME: KARTHIKEYAN MIDDLETON UNIT #: [id number] ROOM: 518 DOCTOR: MAIA AGUILAR MD BIRTHDATE: [birth year] DOS: 07/24/2017 SUBJECTIVE: The patient is breathing better, but very anxious. OBJECTIVE: VITAL SIGNS: Blood pressure 137/77, heart rate of 69 beats per minute, breathing 15 times per minute, temperature 98 degrees Fahrenheit. GENERAL APPEARANCE: The patient is alert and oriented x 3, in no visible distress. HEENT AND NECK: Exam within normal limits. CARDIOVASCULAR SYSTEM: Heart rate is regular in rate and rhythm. S1 and S2 normally audible. LUNGS: Clear to auscultation. ABDOMEN: Soft, nontender. No obvious organomegaly. Bowel sounds are present. Morbid obesity. EXTREMITIES: Without significant cyanosis or edema. Toe ulcers. IMPRESSION AND PLAN: 1. The patient with multiple medical problems and overall suboptimal prognosis secondary to multiple medical issues. 2. Acute over chronic respiratory failure, improving with treatment. The patient gets worse respiratory failure with opioids and benzodiazepines, so we have cut back on her treatment although patient continues to request more and more of these medications because she is very anxious. 3. Severe generalized anxiety disorder, being treated and followed closely. 4. History of controlled medications dependence in the past. The patient continues to request more and more of these medications. 5. Acute over chronic kidney disease. The patient on hemodialysis. 6. Severe hyperkalemia, resolved with treatment and hemodialysis. 7. Moderate protein calorie malnutrition. The patient working with dietary. 8. Benign essential hypertension, treated and controlled. 9. Chronic pain syndrome. The patient is being treated. 10. Type 2 diabetes mellitus, uncontrolled. The patient's blood sugars being monitored and treated. 11. Morbid obesity. The patient working with dietary. 12. Cellulitis of left foot, being followed by infectious disease specialist. 13. Chronic diastolic type congestive heart failure, compensated. 14. The patient had fluid volume overload removed by hemodialysis. [place], [place] PROGRESS NOTE NAME: KARTHIKEYAN MIDDLETON UNIT #: [id number] ROOM: 518 DOCTOR: MAIA AGUILAR MD BIRTHDATE: [birth year] MAIA AGUILAR MD CM:PNLISETH [id number] MAIA AGUILAR MD 07/25/17 0349 interface
--- NOTE | ~2017-07-21 | EKG ---
[place], [place] ELECTROCARDIOGRAM REPORT NAME: KARTHIKEYAN MIDDLETON UNIT #: [id number] ROOM: [facility] DOCTOR: FIFI MUHAMMAD MD,RENÉ BIRTHDATE: [birth year] DOS: 07/24/2017 ELECTROCARDIOGRAM REPORT TIME: At 1:42 p.m. CONCLUSION: Sinus bradycardia noted. Heart rate 53 beats per minute. Widening of the QRS interval noted, which is nonspecific. Correlate with the patient's clinical history. RENÉ CALIX MD CM:EKGRPT:ELECTROCARDIOGRAM REPORT [id number] RENÉ MUHAMMAD MD
--- NOTE | ~2017-07-21 | CON ---
[place], [place] REPORT OF CONSULTATION NAME: [facility]AN [id number] UNIT #: [id number] ROOM: [facility] DOCTOR: FIFI MUHAMMAD MD,RENÉ BIRTHDATE: [birth year] DOS: 07/22/2017 PULMONARY CRITICAL CARE EVALUATION AND MANAGEMENT CONSULTATION REQUESTED BY: Dr. Chin. REASON FOR CONSULTATION: Assess the patient's change in mental status. This note does contain the note covering for Dr. Chin for today's visit of 07/22/2017 as well. HISTORY OF PRESENT ILLNESS: This is a 51-year-old white female who has been known with history of end-stage renal failure, long-term for the patient receiving hemodialysis. The patient missed her dialysis for the past once or twice, brought to the hospital. The patient noted changes in mental status. She has noted increased confusion as well as shortness of breath, was reported decreased appetite. The patient was noted with significant agitation in the Emergency Room and was given Demerol intravenously as well as Ativan in the Emergency Room. The patient was noted extremely drowsy and unable to be aroused later on. She was given the Narcan for the patient, but the patient did not maintain wakefulness. She has been intubated patient and started on mechanical ventilation because of change in mental status, which remains persistent. She has been currently admitted to the Intensive Care Unit. She has been also noted with severe hyperkalemia for this patient on the BMP for this patient, which has been treated with a medication and this morning was started on hemodialysis. She has been receiving hemodialysis this morning. She did require use of the intravenous Diprivan for this patient since the patient was started on mechanical ventilation and improvement in the mental status has been occurring slowly. She has not been noted with agitative behavior. She did not require any hemodynamic support for this patient as she does not show any significant hypotension. The orogastric tube has been inserted for this patient as well. Arterial blood gases reviewed for the patient show evidence of severe metabolic acidosis with some evidence of respiratory acidosis concomitantly. The review of systems could not be completed since the patient intubated and noted on mechanical ventilation. The other history contained in this document is also review of the medical records for this hospitalization as well. PAST MEDICAL HISTORY: Noted for this patient was reviewed. 1. Last admission for this patient, in 06/2017 discharge on 07/16/2017, for the medical management of foreign body in the fifth digit in the left toe for this patient, but noted a remnant of previous surgery. 2. The patient was also noted with history of chronic pain syndrome. 3. Past history of chronic hypoxic respiratory failure. 4. End-stage renal failure, on hemodialysis. 5. The patient with history of chronic obesity. 6. Type 2 diabetes mellitus. 7. Past muscle deconditioning history. 8. History of recreational drug use. 9. Diabetic nephropathy and peripheral neuropathy. 10. Essential hypertension. [place], [place] REPORT OF CONSULTATION NAME: KARTHIKEYAN MIDDLETON UNIT #: [id number] ROOM: [facility] DOCTOR: FIFI MUHAMMAD MD,[facility] BIRTHDATE: [birth year] 11. History of gastroparesis related to chronic diabetes mellitus. 12. Past history of pneumonia. 13. Tobacco use. PAST SURGICAL HISTORY: 1. . 2. MediPort insertion. 3. Temporary dialysis catheter insertion and subsequent removal and permanent dialysis catheter insertion later on for the hemodialysis. 4. The patient's was accessed for the patient with MediPort in place in the left chest. SOCIAL HISTORY: The patient has not been reported any history of illicit drug use or alcohol use. Smoking noted since teenager, a pack of cigarettes per day for this patient. She is single, does not have any children. There was no history of alcohol use. FAMILY HISTORY: The patient was noted for pancreatic cancer in the father, who from this disease. History about the mother was unknown. MEDICATIONS: Currently administered medication noted use of Zoloft, famotidine, Coreg, calcium acetate, Reglan, levothyroxine, Levemir insulin, Latanoprost, Timolol eye drops, hydroxyzine, albuterol sulfate with the nebulizer, IV propofol, and other p.r.n. medications administered. DRUG ALLERGIES: NOTED ALLERGY TO: 1. IODINE. 2. BIAXIN. PHYSICAL EXAMINATION: GENERAL: A 51-year-old female, who has been noted currently intubated on mechanical ventilation without distress, receiving the IV propofol for sedation. Height of 5 feet 4 inches, weight of 232 pounds with BMI of 43.3. VITAL SIGNS: Normal temperature, respiratory rate of 12-14, heart rate of 52-46 previously. The blood pressure noted as 108/52 to 121/48. HEENT: Head was atraumatic. Moderate obesity. The patient orally intubated. Orogastric tube is in place. NECK: Supple, short, and obese. CARDIOVASCULAR: S1, S2 audible. No added sounds. LUNGS: The patient was noted with decreased breath sounds in the lungs bilaterally. There was no wheezing or crackles. ABDOMEN: Soft. Moderate obesity. Bowel sounds present. EXTREMITIES: Visible. No edema, clubbing, or cyanosis. VISIBLE SKIN: No lesions or rashes. CENTRAL NERVOUS SYSTEM: Currently, the patient is intubated, but noted mental status changes, but has not been reported any findings of focal neurologic deficit. LABORATORY DATA: CBC of the patient on 07/17/2017 was hemoglobin 8.9, hematocrit 29.7, WBC count and platelet count normal. Renal function at that [place], [place] REPORT OF CONSULTATION NAME: KARTHIKEYAN MIDDLETON UNIT #: [id number] ROOM: [facility] DOCTOR: FIFI MUHAMMAD MD,[facility] BIRTHDATE: [birth year] time, BUN 57, creatinine 7.76, potassium 5.4, sodium 131. Renal function panel that was done yesterday for the patient in the Emergency Room: BUN 93, creatinine 10.0, glucose 100, potassium of 8.1, sodium 126, CO2 of 18. Arterial blood gas yesterday pH is 7.13, pCO2 of 51, pO2 of 223. assist-control, volume-control mechanical ventilation. The BMP for the patient that was done this morning shows BUN is 104, creatinine 10.80, glucose 109, potassium 7.4, sodium 129 at 2:05 a.m. The arterial blood gas of the patient that was done this morning, pH is 7.19, pCO2 of 44, pO2 of 90.6. The patient with tidal volume 600 mL, assist-control, volume-control mechanical ventilation, PEEP of 5.0 and 40% oxygen. CBC on 07/22/2017, the patient's hemoglobin 9.3, hematocrit 30.0. WBC count normal, platelet count was normal. BMP repeated again for the patient 6:37 a.m. for this patient, BUN 106, creatinine 11.20, potassium 6.1, chloride of 95, sodium 134, CO2 of 19, predialysis. The chest x-ray of the patient that was reviewed for this patient, done for the patient post-intubation mechanical ventilation, shows endotracheal tube was noted in appropriate position. Bilateral pleural fluid for the patient noted with possibly superimposed congestive heart failure cannot be excluded versus layering of the fluids. The dialysis catheter noted in place in the right side and the MediPort in the left chest. IMPRESSION: 1. The patient, who has been currently admitted to the hospital with change in mental status, noted there is very severe hyperkalemia and metabolic acidosis secondary to missed dialysis and end-stage renal failure with worsening. 2. Hyponatremia related to the patient's history of end-stage renal failure. 3. Mental status changes will be noted, multifactorial, but predominantly most likely resulting from the uremia for this patient. 4. Past history of drug-seeking behavior. 5. The patient with history of bronchial asthma. 6. Current acute congestive heart failure with diastolic dysfunction. The patient moderate pleural fluid and increased pleural fluid formation secondary to missed hemodialysis. 7. Severe obesity. 8. History of nicotine use as well. 9. Bradyarrhythmia for the patient, which was noted sinus, may be related to the Diprivan use. PLAN OF TREATMENT: At this time, the patient does not show any signs of infection. Will be treated with ventilator bundle management protocol as well as use of the bronchodilators. Nutrition support for the patient will be ordered for the patient. The patient does not get liberated from mechanical ventilation today. As the patient will complete the hemodialysis, she will be given a trial of CPAP 5, pressure support of 10 to assess the arterial blood gas is improving including rather improvement in the metabolic acidosis. If all the parameters were noted stable as well as clinical stability for this patient, she may be considered liberation from mechanical ventilation. Otherwise, mechanical ventilation will be continued. She will be started on feeding. Nutritional support. Ventilator bundle management on the patient will be done as well. Sedation with intravenous Diprivan will be continued. She was also noted mild bradyarrhythmia. The patient may be exacerbated related to the Diprivan patient [place], [place] REPORT OF CONSULTATION NAME: KARTHIKEYAN MIDDLETON UNIT #: [id number] ROOM: [facility] DOCTOR: FIFI MUHAMMAD MD,RENÉ BIRTHDATE: [birth year] could be likely. Versed could be continued 5 mg q. 1 hour use for the patient for sedation. The pleural fluid for the patient should resolve with conservative treatment, would not require any acute intervention. Other supportive therapy, plan of management to be continued accordingly. Usual therapy and the plan of management and care. Addition of the heparin for the patient sulfate and the Peridex rinse for the patient for ventilator bundle management protocol. Continue to monitor the hyperkalemia. The patient under resolution with the treatment management for the patient with hemodialysis at this time and use of the p.r.n. other medications in the next 24 hours for the patient if necessary. Other supportive therapy, plan of management and care plan. Total time for the patient's pulmonary critical care evaluation and management, and consultation today was 39 minutes. RENÉ CALIX MD CM:CONSTR:REPORT OF CONSULTATION 1037 07/23/17 0052 interface
--- NOTE | ~2017-07-21 | PR ---
[place], [place] PROGRESS NOTE NAME: KARTHIKEYAN MIDDLETON [facility] #: [id number] UNIT #: [id number] ROOM: [facility] DOCTOR: FIFI MUHAMMAD MD,RENÉ BIRTHDATE: [birth year] DOS: 07/23/2017 SUBJECTIVE: The patient was noted without any acute distress this morning, sitting on the chair, noted fully awake and alert, follows vocal commands. The patient did complete the hemodialysis yesterday for severe hyperkalemia as well as end-stage renal failure. The dialysis was completed for 4 hours. After the completion of hemodialysis, the patient's sedation was discontinued. She was started on CPAP mode of mechanical ventilation that was continued approximately half hour. The patient self-extubated herself. Post-extubation, she was noted awake and alert without any distress. She was on conservative treatment at this time and after that with oxygen supplementation with the nasal cannula or Venturi mask. She has been noted without any further change in mental status or any respiratory issues. The patient was noted low-grade fever. REVIEW OF SYSTEMS: Completed and was noted negative. OBJECTIVE: VITAL SIGNS: The patient's rectal temperature assessment 100.2 degrees Fahrenheit, otherwise noted normal temperature, respiratory rate ranged between 12-16, heart rate 63-70, blood pressure ranging between 120/52-118/50. Pulse oxygen saturation on 4 L nasal cannula was 97% with the BiPAP, which was also used by the patient. Post-liberation mechanical ventilation intermittently is 97% saturation. HEENT: Examination shows head was atraumatic. Eyes nonicterus. Chronic obesity. NECK: Short and obese. CARDIOVASCULAR: S1, S2 audible. LUNGS: The patient was noted with moderate decreased breath sounds. There was no wheezing or crackles heard. ABDOMEN: Soft. Moderate obesity. Bowel sounds present. EXTREMITIES: Without any acute edema. VISIBLE SKIN: Noted without any lesions or rashes. MUSCULOSKELETAL: Without any acute deformities. CENTRAL NERVOUS SYSTEM: Appear to be intact. LABORATORY DATA: Arterial blood gas yesterday on 6 L nasal cannula as the patient liberated from mechanical ventilation shows pH of 7.32, pCO2 of 49, pO2 93 showing significant reduction metabolic acidosis. The renal function panel of this morning, the patient's glucose 199, BUN 51, creatinine 7.14. Potassium is noted 3.4, sodium 133. Magnesium 2.2, normal. Albumin 2.7. Urine culture, no bacterial growth since 07/21/2017. CBC today, normal WBC count, hemoglobin 8.8, hematocrit 28.3 with normal platelet count. Blood culture from 07/21/2017 shows no bacterial growths. IMPRESSION: 1. The patient who has been currently noted with findings of change in mental status, multifactorial with acute respiratory failure, status post liberation from mechanical ventilation with self-extubation. 2. Suspected obstructive sleep apnea disorder as well. 3. Chronic obesity. [place], [place] PROGRESS NOTE NAME: KARTHIKEYAN MIDDLETON UNIT #: [id number] ROOM: [facility] DOCTOR: FIFI MUHAMMAD MD,RENÉ BIRTHDATE: [birth year] 4. End-stage renal failure, on hemodialysis. 5. Resolution of severe hyperkalemia. 6. Debility. PLAN OF THERAPY: The patient would be continued on BiPAP intermittent with the oxygen supplementation. Monitor respiratory status closely. Continuation of other therapy, plan of management as in progress. Usual care. Additional treatment changes recommended based on progression of the illness. RENÉ CALIX MD CM:MIRIAM [phone] RENÉ MUHAMMAD MD 07/24/17 0108 interface
--- NOTE | ~2017-07-21 | WRIGHTHP ---
[place], [place] PATIENT HISTORY AND PHYSICAL EXAM NAME: KARTHIKEYAN MIDDLETON [facility] #: [id number] UNIT #: [id number] ROOM: [facility] DOCTOR: MAIA AGUILAR MD BIRTHDATE: [birth year] DOS: 07/21/2017 HISTORY OF PRESENT ILLNESS: The patient is a 51-year-old female with a past medical history of: 1. Chronic diastolic type CHF. 2. Uncontrolled type 2 diabetes mellitus. 3. Chronic pain syndrome. 4. End-stage kidney disease. The patient is on hemodialysis. 5. MediPort placement for IV access. 6. History of diabetic toe ulcers. 7. Drug-seeking behavior and previous history of cocaine and other drug abuse. 8. Poor compliance with treatment. 9. Type 2 diabetes mellitus. The patient presented to the Emergency Department soon after her recent discharge from the hospital with altered mental status, agitation, mental confusion, increased shortness of breath, decreased appetite and nausea. In the ER, the patient was treated for agitation with Ativan and for pain with Demerol and the patient is very drowsy and sleepy and unable to provide any history now. Urine drug screen was positive for opiates. The patient is also in acute respiratory failure and she has been sedated with Demerol and Ativan, along with CO2 narcosis. The patient may require intubation and mechanical ventilation. No chest pains, but she did have increased shortness of breath. No other GI or urinary symptoms. REVIEW OF SYSTEMS: LUNGS: Increasing shortness of breath. GASTROINTESTINAL: Some nausea, but no vomiting or diarrhea. CARDIOVASCULAR: No chest pains or palpitations. FAMILY HISTORY: Noncontributory. HOME MEDICATIONS: Zoloft, metoclopramide, levothyroxine, Pepcid, Coreg, timolol eyedrops, brimonidine eyedrops, latanoprost eyedrops, hydroxyzine, albuterol inhaler. ALLERGIES: Known allergies to BIAXIN. PHYSICAL EXAMINATION: GENERAL: The patient is lethargic, barely wakes up. HEENT: Otherwise pupils are equal, round and reactive to light. LUNGS: Show somewhat decreased breath sounds all over. CARDIOVASCULAR SYSTEM: Heart rate is regular in rate and rhythm. S1 and S2 normally audible. No significant murmur or any other abnormal cardiac sounds. ABDOMEN: Soft, nontender. No obvious organomegaly. Bowel sounds are present. No obvious herniation. EXTREMITIES: The patient has 2 ulcers, 1-2+ leg and pedal edema and some erythema of her legs bilaterally. CENTRAL NERVOUS SYSTEM: Alert and oriented x 3. Cranial nerves II-XII are [place], [place] PATIENT HISTORY AND PHYSICAL EXAM [id number] UNIT #: [id number] ROOM: [facility] DOCTOR: MAIA AGUILAR MD BIRTHDATE: [birth year] intact. Speech is normal. The patient is able to move all extremities. Normal muscle strength. Deep tendon reflexes are equal on both sides. Plantars were downgoing. LABORATORY DATA: BUN and creatinine 93 and 10, potassium 8.1, sodium 126. IMPRESSION: 1. The patient with end-stage kidney failure, on dialysis. The patient has severe hyperkalemia, which has been treated in the Emergency Department with dextrose and calcium and she will be given Kayexalate and followed closely. Her wax room supervisor, Dr. Ben Paula has been consulted for hemodialysis on urgent basis. 2. Acute respiratory failure and sedation, acute hypercarbia and ventilatory failure with sedation. The patient may require intubation and mechanical ventilation and she will be admitted to ICU. The case discussed with Dr. Oziel Lewis in the ER. 3. Benign essential hypertension. The patient is on Coreg. 4. Generalized anxiety disorder, treated with hydroxyzine. 5. Drug-seeking behavior. The patient is always asking for opioids and anxiolytics and has previous history of opioid abuse and cocaine. 6. Hypothyroidism, treated with levothyroxine. 7. Major depression, recurrent, mild, treated with Zoloft. 8. Glaucoma, treated with eyedrops, which have been continued. She is on timolol, brimonidine and latanoprost eyedrops. 9. History of chronic obstructive pulmonary disease with chronic respiratory failure. The patient remains on bronchodilators. MAIA AGUILAR MD CM:HISPHYS:PATIENT HISTORY AND PHYSICAL EXAMINATION 47 20 MAIA AGUILAR MD 07/21/172020 interface
--- NOTE | ~2017-07-21 | PR ---
[place], [place] PROGRESS NOTE [facility]: [id number] UNIT #: [id number] ROOM: 518 DOCTOR: FIFI MUHAMMAD MD,RENÉ BIRTHDATE: [birth year] DOS: 07/24/2017 SUBJECTIVE: The patient was seen and examined on 07/24/2017 and noted comfortable receiving hemodialysis ____ of chest pain. Denies symptoms of cough. He is complaining of shortness of breath at rest this morning. The patient has not been reported any further change in mental status. Remains awake, alert, oriented without any confusion. OBJECTIVE: VITAL SIGNS: For the patient normal temperature, respiratory rate 15, heart rate 69, blood pressure 137/77, pulse oxygen saturation of the patient on 3-4 liter nasal cannula 96% saturation. HEENT: Chronic obesity. NECK: Supple. CARDIOVASCULAR: S1, S2 is audible. LUNGS: With [id number] decreased breath sounds bilaterally without any wheezing or crackles. ABDOMEN: Soft and nontender. IMPRESSION: 1. End-stage renal failure, on hemodialysis. 2. Severe hyperkalemia and improved mental status and acute shortness of breath, mostly related to some pulmonary venous congestion with current history of end-stage renal failure. PLAN OF TREATMENT: Maximal fluid removal. The patient with the dialysis of free water could be done. No other change in the medical treatment otherwise will be necessary. All other supportive plan of therapy and care plan. RENÉ CALIX MD CM:PNTRANS [id number] RENÉ MUHAMMAD MD 07/24/172134 interface
--- NOTE | ~2017-07-21 | PR ---
[place], [place] PROGRESS NOTE NAME: [facility]AN MIDD[facility]TON [id number] UNIT #: [id number] ROOM: 518 DOCTOR: FIFI MUHAMMAD MD,RENÉ BIRTHDATE: [birth year] DOS: 07/25/2017 SUBJECTIVE: She has noted reduction in shortness of breath after she received hemodialysis yesterday. There was no coughing reported by the patient. There were no symptoms of chest pain. OBJECTIVE: VITAL SIGNS: For the patient, which have been recorded, shows a normal temperature. The respiratory rate of the patient recorded as 20, heart rate 64, blood pressure 110/59. The pulse oxygen saturation is 99-100% saturation on nasal cannula. HEENT: Chronic obesity. NECK: Short and obese. CARDIOVASCULAR: S1, S2 is audible. LUNGS: Noted without any wheezing or crackles. ABDOMEN: Soft, nontender. EXTREMITIES: Without any acute edema. IMPRESSION: 1. Stable respiratory status noted at this time with fluid overload/congestive heart failure with acute respiratory failure unresponsiveness. 2. History of end-stage renal failure, on hemodialysis. 3. Resolution of the hyperkalemia. PLAN OF MANAGEMENT: No change in the plan of therapy at this time would be recommended. The patient was showing improvement with the current hemodialysis. Continue maximum fluid removal, oxygen supplementation, titrate saturation 90% greater. Outpatient assessment should be done for the patient for sleep apnea disorder as it appeared to be very likely. RENÉ CALIX MD CM:PNTRANS [id number] RENÉ MUHAMMAD MD 07/26/17 0133 interface
[~2017-07-21 12:58] MED LIST changes: +CEFEPIME-D1 GM/50 ML IV; +LEVEMIR100 UNIT/1 SC; +NOVOLOG100 UNIT/1 SQ; +OMNICEF300 MG PO; +TIMOLOL MALEATE5 M7 OP
[2017-07-21 13:59] LABS: HEMATOCRIT 31.8 % (37.0-47.0); HEMOGLOBIN 9.4 g/dl (12.0-16.0); MEAN CELL VOLUME 96.4 fl (81.0-99.0); MEAN CORPUSCULAR HGB 28.5 pg (27.0-31.0); MEAN CORPUSCULAR HGB CONC 29.6 g/dl (33.0-37.0); MEAN PLATELET VOLUME 10.7 fl (9.6-12.3); NUCLEATED RED BLOOD CELL 0.1 10*3/uL (0.0-0.0); NUCLEATED RED BLOOD CELL 1.1 % (0.0-0.0); PLATELET COUNT AUTOMATED 181 10*3/uL (130-400); RED CELL DISTRI WIDTH 17.2 % (0-14.5); WHITE BLOOD COUNT 9.9 10*3/uL (4.8-10.8)
[2017-07-21 14:16] LABS: ALBUMIN 3.1 gm/dl (3.1-4.5); ALKALINE PHOSPHATASE 225 U/L (45-117); BUN 91 mg/dl (7-24); CHLORIDE 93 mmol/L (98-107); SGOT/AST 133 IU/L (3-35); SGPT/ALT 87 U/L (12-78); SODIUM 126 mmol/L (136-145); TOTAL PROTEIN 8.7 gm/dL (6.4-8.2)
[2017-07-21 14:17] LABS: BASOPHILS 2 % (0-1); PLATELET SUFFICIENCY NORMAL (NORMAL); TOTAL CELLS COUNTED 100 #CELLS; TROPONIN I < 0.015 ng/ml (<0.045)
[2017-07-21 14:20] LABS: POTASSIUM 8.3 mmol/L (3.5-5.1)
[2017-07-21 14:52] LABS: ABG HCO3 15.5 mmol/l (22-26); ABG O2 SATURATION 81.6 % (95-97); ARTERIAL BLOOD GAS PCO2 50.4 mmHg (35-45); ARTERIAL BLOOD GAS PO2 55.1 mmHg (80-90)
[2017-07-21 14:53] LABS: ABG BASE EXCESS -13.2 mmol/L (-2.0-2.0)
[2017-07-21 14:54] LABS: ARTERIAL BLOOD GAS PH 7.115 (7.35-7.45)
[2017-07-21 15:15] LABS: ABG HCO3 18.4 mmol/l (22-26); ABG O2 SATURATION 85.4 % (95-97); ARTERIAL BLOOD GAS PCO2 58.1 mmHg (35-45); ARTERIAL BLOOD GAS PO2 66.8 mmHg (80-90)
[2017-07-21 15:22] LABS: ABG BASE EXCESS -10.4 mmol/L (-2.0-2.0); ARTERIAL BLOOD GAS PH 7.126 (7.35-7.45)
[2017-07-21 15:52] LABS: BILIRUBIN NEGATIVE (NEGATIVE); BLOOD 3+ (NEGATIVE); CLARITY CLOUDY (CLEAR); COLOR YELLOW (YELLOW); GLUCOSE NEGATIVE (NEGATIVE); KETONE TRACE (NEGATIVE); LEUKO ESTERASE 1+ (NEGATIVE); NITRITE NEGATIVE (NEGATIVE); SPECIFIC GRAVITY 1.025 (1.005-1.030); UROBILINOGEN 0.2 E.U./dl (0.2-1.0)
[2017-07-21 16:02] LABS: URINE AMPHETAMINES < 1000 (1000ng/ml); URINE BARBITURATES < 200 (200ng/ml); URINE BENZODIAZEPINES < 200 (200ng/ml); URINE CANNABINOIDS (THC) < 50 (50ng/ml); URINE COCAINE < 300 (300ng/ml); URINE METHADONE < 300 (300ng/ml); URINE OPIATES > 300 (300ng/ml)
[2017-07-21 16:03] LABS: BACTERIA 1+; YEAST 3+
[2017-07-21 16:04] LABS: EPITHELIAL CELLS 51-100
[2017-07-21 16:05] LABS: RBC 21-30 rbc/hpf (0-2)
[2017-07-21 16:08] LABS: URINE PHENCYCLIDINE < 25 (25ng/ml)
[2017-07-21 17:21] LABS: CREATININE 10.1 mg/dL (0.55-1.02)
[2017-07-21 17:24] LABS: POTASSIUM 8.1 mmol/L (3.5-5.1)
[2017-07-21 19:39] LABS: ABG HCO3 16.8 mmol/l (22-26); ARTERIAL BLOOD GAS PCO2 51.2 mmHg (35-45)
[2017-07-21 19:42] LABS: ABG BASE EXCESS -11.7 mmol/L (-2.0-2.0)
[2017-07-21 19:43] LABS: ARTERIAL BLOOD GAS PH 7.137 (7.35-7.45)
[2017-07-21 21:41] LABS: CREATININE 10.6 mg/dL (0.55-1.02)
[2017-07-21 21:50] LABS: POTASSIUM 8.4 mmol/L (3.5-5.1)
[2017-07-21] MEDS ORDERED: ATIVAN1 MG PO (23:47)
[2017-07-22] VITALS (9 sets, daily range): BP systolic 96–118; BP diastolic 32–58
[2017-07-22] MEDS ORDERED: HUMALOG100 UNIT/2 SQ (01:07)
[2017-07-22] MEDS ORDERED: HYDROXYZINE10 MG PO (01:09)
[2017-07-22] MEDS ORDERED: NEPHRO-VITE TA0.8 MG PO (01:19)
[2017-07-22] MEDS ORDERED: TRIPLE ANTIBI28.4 G1 T (01:35)
[2017-07-22] MEDS ORDERED: PROVENTIL HFA6.7 GM INH (01:50)
[2017-07-22 02:22] LABS: CREATININE 10.8 mg/dL (0.55-1.02)
[2017-07-22 02:45] LABS: POTASSIUM 7.4 mmol/L (3.5-5.1)
[2017-07-22 06:13] LABS: ABG HCO3 16.5 mmol/l (22-26); ABG O2 SATURATION 93.9 % (95-97); ARTERIAL BLOOD GAS PCO2 44.2 mmHg (35-45); ARTERIAL BLOOD GAS PO2 90.4 mmHg (80-90)
[2017-07-22 06:23] LABS: ABG BASE EXCESS -10.8 mmol/L (-2.0-2.0); ARTERIAL BLOOD GAS PH 7.194 (7.35-7.45)
[2017-07-22 06:53] LABS: HEMOGLOBIN 9.3 g/dl (12.0-16.0); MEAN CELL VOLUME 94.9 fl (81.0-99.0); MEAN CORPUSCULAR HGB 29.4 pg (27.0-31.0); MEAN PLATELET VOLUME 10.7 fl (9.6-12.3); NUCLEATED RED BLOOD CELL 0.1 10*3/uL (0.0-0.0); NUCLEATED RED BLOOD CELL 0.8 % (0.0-0.0); PLATELET COUNT AUTOMATED 190 10*3/uL (130-400); RED BLOOD COUNT 3.16 10*6/uL (4.10-5.10); RED CELL DISTRI WIDTH 17.2 % (0-14.5); WHITE BLOOD COUNT 10.2 10*3/uL (4.8-10.8)
[2017-07-22 07:08] LABS: CREATININE 11.2 mg/dL (0.55-1.02)
[2017-07-22 07:23] LABS: TOTAL CELLS COUNTED 100 #CELLS
[2017-07-22 07:24] LABS: BURR CELLS FEW; PLATELET SUFFICIENCY NORMAL (NORMAL); POLYCHROMASIA SLIGHT
[2017-07-22 07:34] LABS: POTASSIUM 6.1 mmol/L (3.5-5.1)
[2017-07-22 14:37] LABS: ABG BASE EXCESS -0.9 mmol/L (-2.0-2.0); ABG HCO3 25.1 mmol/l (22-26); ABG O2 SATURATION 96.1 % (95-97); ARTERIAL BLOOD GAS PCO2 49.2 mmHg (35-45); ARTERIAL BLOOD GAS PH 7.324 (7.35-7.45); ARTERIAL BLOOD GAS PO2 93.9 mmHg (80-90)
[2017-07-23] VITALS: BP 96/51
[2017-07-23 04:00] VITALS: BP 114/86
[2017-07-23 05:40] LABS: ALBUMIN 2.7 gm/dl (3.1-4.5); CREATININE 7.14 mg/dL (0.55-1.02); PHOSPHOROUS 7.9 mg/dL (2.5-4.9)
[2017-07-23 05:44] LABS: POTASSIUM 3.4 mmol/L (3.5-5.1)
[2017-07-23 06:00] LABS: HEMATOCRIT 28.3 % (37.0-47.0); HEMOGLOBIN 8.8 g/dl (12.0-16.0); MEAN CELL VOLUME 95.6 fl (81.0-99.0); MEAN CORPUSCULAR HGB 29.7 pg (27.0-31.0); MEAN CORPUSCULAR HGB CONC 31.1 g/dl (33.0-37.0); MEAN PLATELET VOLUME 11.3 fl (9.6-12.3); NUCLEATED RED BLOOD CELL 0.3 % (0.0-0.0); PLATELET COUNT AUTOMATED 200 10*3/uL (130-400); RED BLOOD COUNT 2.96 10*6/uL (4.10-5.10); RED CELL DISTRI WIDTH 17.6 % (0-14.5); WHITE BLOOD COUNT 10.7 10*3/uL (4.8-10.8)
[2017-07-23 06:43] LABS: PLATELET SUFFICIENCY NORMAL (NORMAL); TOTAL CELLS COUNTED 100 #CELLS
[2017-07-23 08:00] VITALS: BP 128/52
[2017-07-23 12:00] VITALS: BP 99/35
[2017-07-23 16:00] VITALS: BP 115/50
[2017-07-24] VITALS: BP 120/70
[2017-07-24 04:00] VITALS: BP 110/65
[2017-07-24 05:55] LABS: HEMATOCRIT 29.3 % (37.0-47.0); HEMOGLOBIN 8.5 g/dl (12.0-16.0); MEAN CORPUSCULAR HGB 28.1 pg (27.0-31.0); MEAN PLATELET VOLUME 10.7 fl (9.6-12.3); PLATELET COUNT AUTOMATED 187 10*3/uL (130-400); RED BLOOD COUNT 3.02 10*6/uL (4.10-5.10); RED CELL DISTRI WIDTH 17.2 % (0-14.5); WHITE BLOOD COUNT 11.2 10*3/uL (4.8-10.8)
[2017-07-24 06:09] LABS: CREATININE 8.14 mg/dL (0.55-1.02); POTASSIUM 4.3 mmol/L (3.5-5.1)
[2017-07-24 06:33] LABS: TOTAL CELLS COUNTED 100 #CELLS
[2017-07-24 06:34] LABS: PHOSPHOROUS 8.6 mg/dL (2.5-4.9); PLATELET SUFFICIENCY NORMAL (NORMAL); POLYCHROMASIA SLIGHT
[2017-07-24 08:00] VITALS: BP 137/77
[2017-07-24 12:00] VITALS: BP 111/40
[2017-07-24 16:00] VITALS: BP 120/50
[2017-07-24 20:00] VITALS: BP 106/47
[2017-07-25] VITALS: BP 113/53
[2017-07-25 05:55] LABS: CREATININE 5.69 mg/dL (0.55-1.02); PHOSPHOROUS 6.5 mg/dL (2.5-4.9); POTASSIUM 4.2 mmol/L (3.5-5.1)
[2017-07-25 08:00] VITALS: BP 107/65
[2017-07-25 12:00] VITALS: BP 110/59
[2017-07-25] MEDS ORDERED: DOXYCYCLINE MO100 M1 PO (15:45)
[2017-07-25] MEDS ORDERED: LYRICA50 M1 PO (15:45)
[2017-07-25] MEDS ORDERED: NORCO 5-325 TA1 EACH PO (15:46)
[2017-07-25 16:00] VITALS: BP 123/64
== END 2017-07-25 19:55 | DRG 208 ==
LOC: ED 12:58 → 5E 17:44 → ICCU 17:44 → EDHOLD 17:44 → ICCU 18:35 → 5E 07-24 14:34
PROVIDERS: Emergency Medicine; Internal Medicine; Internal Medicine Critical Care Medicine; Internal Medicine Nephrology; Student in an Organized Health Care Education/Training Program
PROC: 5A1935Z Respiratory Ventilation, Less than 24 Consecutive Hours (ICD-10-PCS; principal; 2017-07-21)
PROC: 0BH17EZ Insertion of Endotracheal Airway into Trachea, Via Natural or Artificial Opening (ICD-10-PCS; principal; 2017-07-21)
PROC: 5A1D70Z Performance of Urinary Filtration, Intermittent, Less than 6 Hours Per Day (ICD-10-PCS; 2017-07-21)
PROC: 5A09357 Assistance with Respiratory Ventilation, Less than 24 Consecutive Hours, Continuous Positive Airway Pressure (ICD-10-PCS; 2017-07-21)
PROC: 5A1D70Z Performance of Urinary Filtration, Intermittent, Less than 6 Hours Per Day (ICD-10-PCS; 2017-07-22)
PROC: 5A09357 Assistance with Respiratory Ventilation, Less than 24 Consecutive Hours, Continuous Positive Airway Pressure (ICD-10-PCS; 2017-07-24)
DX: J96.21 Acute and chronic respiratory failure with hypoxia (principal); I13.2 Hypertensive heart and chronic kidney disease with heart failure and with stage 5 chronic kidney disease, or end stage renal disease; E44.0 Moderate protein-calorie malnutrition; N17.9 Acute kidney failure, unspecified; E11.22 Type 2 diabetes mellitus with diabetic chronic kidney disease; I50.33 Acute on chronic diastolic (congestive) heart failure; N18.6 End stage renal disease; L03.116 Cellulitis of left lower limb; E87.2 Acidosis; E87.1 Hypo-osmolality and hyponatremia; N39.0 Urinary tract infection, site not specified; F33.9 Major depressive disorder, recurrent, unspecified; Z68.41 Body mass index [BMI] 40.0-44.9, adult; E66.01 Morbid (severe) obesity due to excess calories; J96.22 Acute and chronic respiratory failure with hypercapnia; E87.5 Hyperkalemia; E87.70 Fluid overload, unspecified; F41.1 Generalized anxiety disorder; G89.4 Chronic pain syndrome; R62.7 Adult failure to thrive; E11.65 Type 2 diabetes mellitus with hyperglycemia; J44.9 Chronic obstructive pulmonary disease, unspecified; H40.9 Unspecified glaucoma; E78.5 Hyperlipidemia, unspecified; I49.8 Other specified cardiac arrhythmias; F17.210 Nicotine dependence, cigarettes, uncomplicated; E11.42 Type 2 diabetes mellitus with diabetic polyneuropathy; Z87.01 Personal history of pneumonia (recurrent); Z76.5 Malingerer [conscious simulation]; Z99.2 Dependence on renal dialysis; Z88.8 Allergy status to other drugs, medicaments and biological substances; Z79.4 Long term (current) use of insulin; Z80.0 Family history of malignant neoplasm of digestive organs; Z88.1 Allergy status to other antibiotic agents; Z91.041 Radiographic dye allergy status; Z79.899 Other long term (current) drug therapy

== ENCOUNTER 2017-08-21 16:03 | Inpatient (IN) | payer MEDICARE, MEDICAID ==
[~2017-08-21] VITALS: Ht 157.5 cm; Wt 103.9 kg
--- NOTE | ~2017-08-21 | PR ---
[place], [place] PROGRESS NOTE NAME: KARTHIKEYAN MIDDLETON [facility] #: [id number] UNIT #: [id number] ROOM: 528 DOCTOR: BING VÁSQUEZ DPM BIRTHDATE: [birth year] DOS: 08/23/2017 SUBJECTIVE: This patient is seen today for followup of ulcers on both feet. She has no complaints in regards to her feet. OBJECTIVE: Neurovascular status is unchanged. There are wounds present at the plantar posterior portion of the right heel, dorsal right first MPJ, left fifth MPJ and left great toe. The wounds are clean. There is no edema or erythema. No purulent drainage or malodor. Minimal eschar is seen. Overall, no signs of active infection at either foot. ASSESSMENT: Diabetes with peripheral vascular disease, diabetic ulcers, noninfected. PLAN: Evaluation and management. Continue with Bactroban dressings once a day. Continue with offloading both feet. We will continue to follow while in the hospital. Right now, there is no infection noted in either foot. BING VÁSQUEZ DPM CM:PNTRANS [id number] BING VÁSQUEZ DPM 08/23/17 1706 interface
--- NOTE | ~2017-08-21 | PR ---
[place], [place] PROGRESS NOTE NAME: KARTHIKEYAN MIDDLETON UNIT #: [id number] ROOM: 528 DOCTOR: FIFI MUHAMMAD MD,RENÉ BIRTHDATE: [birth year] DOS: 08/23/2017 SUBJECTIVE: She has been noted much more awake and alert. She has used the BiPAP, which was ordered for several hours at nighttime and in the morning intermittently as well. She has been getting hemodialysis today. Denies symptoms of chest pain or hemoptysis. Denies symptoms of nausea or vomiting. Denies symptoms of abdominal pain. DICTATION ENDS HERE RENÉ CALIX MD CM:PNTRANS [id number] RENÉ MUHAMMAD MD 08/24/17 0236 interface
--- NOTE | ~2017-08-21 | PR ---
[place], [place] PROGRESS NOTE NAME: KARTHIKEYAN MIDDLETON [facility] #: [id number] UNIT #: [id number] ROOM: 528 DOCTOR: FIFI MUHAMMAD MD,RENÉ BIRTHDATE: [birth year] DOS: 08/24/2017 SUBJECTIVE: The patient noted comfortable at this time without acute distress. She was planned for possible discharge back to the assisted facility. She has not been noted symptoms of hemoptysis or chest pain. She has been tolerating the BiPAP. OBJECTIVE: VITAL SIGNS: Normal temperature, respiratory rate 20/65, blood pressure 119/46. Pulse ox saturation on 4 liters nasal cannula 100% saturation. HEENT: Chronic obesity. NECK: Supple. CARDIOVASCULAR: S1, S2 heard. LUNGS: Clear. ABDOMEN: Soft and obese. EXTREMITIES: Without any acute edema. LABORATORY DATA: BMP today: BUN 36, creatinine 4.98, and glucose 297. IMPRESSION: 1. The patient with resolving congestive heart failure/fluid. 2. Suspect obstructive sleep apnea disorder. 3. Improving acute hypercapnic and hypoxic respiratory failure. PLAN OF MANAGEMENT: 1. No changes in the plan of therapy, otherwise will be necessary. The patient has been planned for discharge to be continued on the BiPAP. Outpatient assessment would be done for the sleep apnea disorder. 2. Adjust her treatment and current therapy as an outpatient as warranted. The discharge planning was discussed with Dr. Lluvia Presley today. RENÉ CALIX MD CM:PNTRANS [id number] RENÉ MUHAMMAD MD 08/25/17 0207 interface
--- NOTE | ~2017-08-21 | CON ---
[place], [place] REPORT OF CONSULTATION NAME: KARTHIKEYAN MIDDLETON UNIT #: [id number] ROOM: [facility] DOCTOR: FILIPE RUBI DPM BIRTHDATE: [birth year] DOS: 08/22/2017 SUBJECTIVE: The patient is a 51-year-old female with chief complaint of ulcerations on both feet. The patient was admitted yesterday by Dr. Chin. PAST MEDICAL HISTORY: Altered mental state; cellulitis, left foot; CHF; chronic anxiety; chronic pain syndrome; chronic ulcer of right foot, chronic obstructive pulmonary disease; diabetes mellitus, chronic; electrolyte abnormality; end-stage renal disease, on dialysis; fluid overload; generalized anxiety disorder; hyperlipidemia; hypertension; history of infected decubitus ulcer; morbid obesity due to excess calories; neuropathy; normocytic anemia; osteomyelitis, right foot; peripheral neuropathy; permanent central venous catheter in place; protein-calorie malnutrition; moderate renal failure; supplemental oxygen dependent; UTI. SURGICAL HISTORY: delivery; foot surgeries, multiple. SOCIAL HISTORY: History of tobacco use, 4 cigarettes per day x 17 years. Denies illicit drug use or alcohol. FAMILY HISTORY: Father at age 73 of pancreatic cancer. Mother reportedly in good health at age 74. ALLERGIES: BIAXIN, IODINE, and SEAFOOD. LOWER EXTREMITY EXAMINATION: Pedal pulses diminished bilateral, decreased hair growth bilateral. Decreased epicritic sensations bilateral. There are ulcerations noted to the dorsal first right MPJ which is partial thickness. No signs of abscess, no signs of infection. There is an eschar, heel decubitus ulcer, posterior aspect right heel. There are no signs of erythema, purulent drainage or foul odor noted. There is also an ulceration with eschar to the plantar fifth left MPJ. No signs of abscess, cellulitis or drainage noted. The patient has a history of PVD. ASSESSMENT: Diabetes with peripheral vascular disease; diabetic ulcerations, fifth left metatarsophalangeal joint, right heel and dorsal first right metatarsophalangeal joint. PLAN: Evaluation and management. Ordered Bactroban and gauze dressings to the ulcerative sites and apply heel protectors bilateral. [place], [place] REPORT OF CONSULTATION NAME: KARTHIKEYAN MIDDLETON UNIT #: [id number] ROOM: [facility] DOCTOR: FILIPE RUBI DPM BIRTHDATE: [birth year] FILIPE RUBI DPM CM:CONSTR:REPORT OF CONSULTATION 1135 08/22/17 1210 interface
--- NOTE | ~2017-08-21 | PR ---
[place], [place] PROGRESS NOTE NAME: KARTHIKEYAN MIDDLETON UNIT #: [id number] ROOM: [facility] DOCTOR: MAIA AGUILAR MD BIRTHDATE: [birth year] DOS: 08/23/2017 SUBJECTIVE: The patient is feeling much better. No more complaints of abdominal pains. She is undergoing hemodialysis in the ICU today. OBJECTIVE: VITAL SIGNS: Blood pressure 152/77, heart rate 68 beats per minute, breathing 13 times per minute, temperature 98 degrees Fahrenheit. GENERAL APPEARANCE: The patient is alert and oriented x 3, in no visible distress, except for obesity. HEENT AND NECK: Exam within normal limits. CARDIOVASCULAR SYSTEM: Heart rate is regular in rate and rhythm. S1 and S2 normally audible. LUNGS: Clear to auscultation. ABDOMEN: Soft, nontender. No obvious organomegaly. Bowel sounds are present. EXTREMITIES: Without significant cyanosis or edema. IMPRESSION: 1. The patient with end-stage kidney failure, remains on hemodialysis. She is getting a treatment today and she can be possibly discharged to home tomorrow. 2. Chronic congestive heart failure with normal left ventricular ejection fraction, diastolic type heart failure. The patient asked to stay on fluid restriction and salt restriction and her breathing has improved. 3. Type 2 diabetes mellitus. Blood sugar is being monitored and treated. 4. Uncontrolled diabetes, poor compliance with diet. 5. Benign essential hypertension, treated and controlled. 6. Chronic respiratory failure with obesity hypoventilation syndrome with generalized weakness. The patient is kept on BiPAP, but she has been using it only off and on. She has significant underlying chronic obstructive pulmonary disease. Dr. Barr is following her. 7. Advance adult failure to thrive, multiple medical problems and recurrent hospital admissions. 8. Admission for acute abdominal pains, have improved. Her CAT scan did not show any significant abnormality. 9. Blood cultures have been negative. Urine culture is growing heavy yeast. [place], [place] PROGRESS NOTE NAME: KARTHIKEYAN MIDDLETON UNIT #: [id number] ROOM: [facility] DOCTOR: MAIA AGUILAR MD BIRTHDATE: [birth year] MAIA AGUILAR MD CM:PNLISETH [id number] MAIA AGUILAR MD 08/23/17 1044 interface
--- NOTE | ~2017-08-21 | WRIGHTHP ---
[place], [place] PATIENT HISTORY AND PHYSICAL EXAM NAME: KARTHIKEYAN MIDDLETON [facility] #: [id number] UNIT #: [id number] ROOM: [facility] DOCTOR: MAIA AGUILAR MD BIRTHDATE: [birth year] DOS: 08/21/2017 HISTORY OF PRESENT ILLNESS: The patient is a 51-year-old female with a past medical history of: 1. Chronic respiratory failure. 2. Moderate protein-calorie malnutrition. 3. Obesity. 4. Severe generalized anxiety disorder. 5. Severe adult failure to thrive and recurrent visits to the hospital. 6. Benign essential hypertension. 7. Chronic pain syndrome. 8. Type 2 diabetes mellitus. 9. Chronic wounds involving her feet. 10. End-stage kidney failure with the patient being on hemodialysis. The patient presented to the emergency department at [facility] with complaints of abdominal pains which started 4 days earlier with vomiting. The patient felt dizzy. The patient was found to be in some congestive heart failure on the chest x-ray and recommended for admission and further management. After admission, the patient is feeling much better, although she does complain of abdominal pains, but she has had no diarrhea or vomiting at the hospital. After admission, she seems to be doing fairly well. REVIEW OF SYSTEMS: LUNGS: Some shortness of breath, which is chronic. GASTROINTESTINAL: Earlier complaints of vomiting, but none after admission. CARDIOVASCULAR: No chest pains or palpitations. FAMILY HISTORY: Noncontributory. MEDICATIONS: Medications from the snf were insulin, Coreg, metoclopramide, levothyroxine, Zoloft, timolol eyedrops, latanoprost eyedrops, lorazepam, cefepime, hydroxyzine. PHYSICAL EXAMINATION: GENERAL: Alert, oriented times 3, obese, in no visible distress. HEENT AND NECK: Extraocular movements are intact. Sclerae are anicteric. Oral mucosa is moist and clean. No obvious facial weakness. Neck is supple without any lymphadenopathy. No thyromegaly. No JVD. No carotid arterial bruits. LUNGS: Clear to auscultation. No wheezing. No rhonchi. CARDIOVASCULAR SYSTEM: Heart rate is regular in rate and rhythm. S1 and S2 normally audible. No significant murmur or any other abnormal cardiac sounds. ABDOMEN: Soft, nontender. No obvious organomegaly. Bowel sounds are present. No obvious herniation. EXTREMITIES: Without significant cyanosis or edema. Warm to touch. Some foot ulcers. CENTRAL NERVOUS SYSTEM: Alert and oriented x 3. Cranial nerves II-XII are intact. Speech is normal. The patient is able to move all extremities. Normal muscle strength. Deep tendon reflexes are equal on both sides. Plantars were downgoing. [place], [place] PATIENT HISTORY AND PHYSICAL EXAM [id number] UNIT #: [id number] ROOM: [facility] DOCTOR: LAUREN BERNAL,MAIA Gould BIRTHDATE: [birth year] IMPRESSION: 1. Abdominal pains are very vague and from uncertain etiology. The patient does not have any more nausea or vomiting. She has no diarrhea after her admission to the hospital. CT of the abdomen and pelvis showed no acute abnormality. No leukocytosis. 2. Chronic respiratory failure. The patient kept on BiPAP. She has significant underlying COPD. She has chronic elevation of pCO2, ventilatory chronic respiratory failure, being treated with BiPAP, which she is not wearing as recommended and she remains in the ICU. 3. Acute over chronic congestive heart failure with fluid volume overload, diastolic type. 4. Chronic kidney failure. The patient remains on hemodialysis. 5. Type 2 diabetes mellitus. The patient's blood sugars were monitored and treated accordingly. She remains on insulin. 6. Benign essential hypertension. Blood pressures to be monitored and treated. MAIA AGUILAR MD CM:HISPHYS:PATIENT HISTORY AND PHYSICAL EXAMINATION [phone] MAIA AGUILAR MD 08/22/171757 interface
--- NOTE | ~2017-08-21 | PR ---
[place], [place] PROGRESS NOTE NAME: KARTHIKEYAN MIDDLETON [facility] #: [id number] UNIT #: [id number] ROOM: 528 DOCTOR: RENÉ TEJADA MD BIRTHDATE: [birth year] DOS: 08/23/2017 PULMONARY PROGRESS NOTE ____ SUBJECTIVE: She has been noted comfortable at this time, resting on the bed. Denies symptoms of chest pain or hemoptysis. The patient has been receiving hemodialysis today. Shortness of breath has been improved and noted significant improvement in mental status noted essentially normal. She has used the BiPAP about 8-9 hours last night, but this morning, using oxygen supplementation nasal cannula. Denies symptoms of chest pain. Denies symptoms of nausea or vomiting. Denies symptoms of hemoptysis. Denies edema, pain in lower extremity, general weakness and fatigue were noted partially decreased. There were no symptoms of headache. Remaining systems reviewed and were noted negative. PHYSICAL EXAMINATION: VITAL SIGNS: For the patient's temperature noted at 100 degrees Fahrenheit yesterday afternoon, noted normal this morning, respiratory rate ranges between 13-15, heart rate 68, 61, blood pressure 152/77-130/54. Pulse oxygen saturation on 4 liters nasal cannula 98% saturation. HEENT: Chronic obesity. Head was atraumatic. Eyes nonicterus. NECK: Supple. CARDIOVASCULAR: S1, S2 is audible. LUNGS: The patient was noted without any wheezing or crackles at this time. Breaths are noted generally diminished bilaterally. ABDOMEN: Soft with moderate obesity. Bowel sounds present. EXTREMITIES: Without any acute edema. SKIN: Visible skin. No lesions or rashes. MUSCULOSKELETAL SYMPTOMS: Without any acute deformities. LABORATORY DATA: CMP today, she was noted as BUN 53, creatinine 7.33 and glucose 194 predialysis. Albumin is 2.9. The urine culture of the patient noted with heavy growth of yeast. Blood culture of the patient, which was done on admission on 08/21/2017 was noted no bacterial growth. The CBC of the patient this morning, hemoglobin 8.9 and hematocrit 29.6, platelet count of 222,000. The influenza A and B, nasal washing antigen noted negative. Chest x-ray of the patient yesterday noted with improvement in the pulmonary venous congestion. IMPRESSION: 1. Improving acute on chronic hypoxic respiratory failure, change in mental status, congestive heart failure, status fluid overload. 2. Wrong suspicion of obstructive sleep apnea disorder as well. 3. History of chronic obstructive pulmonary disease as well. PLAN OF MANAGEMENT: The patient will benefit from diagnostic sleep study after the discharge. In the meantime, continue the BiPAP as ordered and the oxygen supplementation. Continue hemodialysis, bronchodilators and all other treatment [place], [place] PROGRESS NOTE NAME: KARTHIKEYAN MIDDLETON UNIT #: [id number] ROOM: 528 DOCTOR: RENÉ TEJADA MD BIRTHDATE: [birth year] as outlined previously without any changes. Monitor respiratory status closely. RENÉ CALIX MD CM:PNTRANS [id number] RENÉ MUHAMMAD MD 08/24/17 0159 interface
--- NOTE | ~2017-08-21 | PR ---
[place], [place] PROGRESS NOTE NAME: KARTHIKEYAN MIDDLETON [facility] #: [id number] UNIT #: [id number] ROOM: 528 DOCTOR: FILIPE RUBI DPM BIRTHDATE: [birth year] DOS: 08/24/2017 SUBJECTIVE: The patient was seen for followup of ulcerations, bilateral foot. The patient has no pain or complaints to the ulcerations. OBJECTIVE: The wounds to the plantar posterior right heel, dorsal first right MPJ and left fifth MPJ are granulating well. Minimal eschar noted. No signs of infection or drainage. No erythema. ASSESSMENT: Diabetic ulcerations, bilateral foot with peripheral vascular disease. PLAN: Evaluation and management. Continue local wound care, continue offloading. The patient is going back to the assisted later today. We will follow as an outpatient. FILIPE RUBI DPM CM:PNLISETH [id number] FILIPE RUBI DPM 08/24/17 1050 interface
--- NOTE | ~2017-08-21 | DS ---
[place], [place] DISCHARGE SUMMARY NAME: [facility]DLETON [id number] UNIT #: [id number] ROOM: 528 DOCTOR: MELISSA CORTES MD BIRTHDATE: [birth year] DOS: 08/24/2017 DIAGNOSES: 1. End-stage renal failure, on dialysis. 2. Hypercapnic respiratory failure, improved after starting BiPAP. 3. Chronic diastolic congestive heart failure. 4. Type 2 diabetes mellitus, poorly controlled. 5. Benign hypertension. HOSPITAL COURSE: This patient is very well known to us, comes in with complaints of abdominal pain, dizziness, lightheadedness. Please see H and P and notes dictated by Dr. Barr and Dr. Chin over the last several days for further details. After admission, the patient was placed on BiPAP in the ICU and this seems to have improved mentation. She was started back on dialysis. Blood cultures and urine cultures were done. Blood cultures have come back negative. Urine culture shows presence of yeast. The patient has been placed on appropriate medications. She does have peripheral vascular disease from diabetes and is poorly healing diabetic ulcers in the right heel, for which Dr. Barahona did see her and advised Bactroban dressing and offloading. The patient is stable the plan to discharge to assisted today. Discussed with Dr. Barr. Will continue BiPAP at the assisted. DISCHARGE MEDICATIONS: Will be BiPAP settings from Dr. Barr. Rest of the meds are primidone eye drops twice a day to each eye, PhosLo 667 two tablets t.i.d. with meals, Coreg 12.5 daily, Dulcolax 1 tablet daily p.r.n., Pepcid 20 daily, latanoprost eye drops at bedtime, metoclopramide 5 q. 6 p.r.n. for nausea, levothyroxine 50 mcg daily, timolol eye drops b.i.d., Tylenol 650 q. 6 p.r.n., vitamin C 500 b.i.d., zinc 220 daily, lorazepam 0.5 q. 8 p.r.n., Humalog 4 units subQ t.i.d., triple antibiotic to local application to the heel, Lyrica 200 b.i.d., Lantus 30 units subQ twice a day, lispro insulin 1 unit subQ q.a.c. and at bedtime, liothyronine 5 mcg daily, vitamin D 50,000 units weekly, albuterol 2 puffs q. 6, oxycodone 5 q. 8 p.r.n., Anusol for local application in the mouth p.r.n., Foltanx tablet 1 tablet daily, Aranesp 60 mcg injection daily, citalopram 20 daily. No new medications were given to the patient other than Diflucan 100 mg twice daily for 5 days. [place], [place] DISCHARGE SUMMARY NAME: KARTHIKEYAN MIDDLETON UNIT #: [id number] ROOM: 528 DOCTOR: MELISSA CORTES MD BIRTHDATE: [birth year] MELISSA CORTES MD CM:CLIFTON 7 MELISSA CORTES MD 08/24/1758 interface
--- NOTE | ~2017-08-21 | CON ---
[place], [place] REPORT OF CONSULTATION NAME[facility] MID[id number] UN[facility] #: [id number] ROOM: [facility] DOCTOR: RENÉ TEJADA MD BIRTHDATE: [birth year] DOS: 08/22/2017 PULMONARY CONSULTATION, EVALUATION, AND MANAGEMENT REASON FOR CONSULTATION: To assess the patient with acute hypercapnic respiratory failure, managed status changes. HISTORY OF PRESENT ILLNESS: This is a 51-year-old white female patient[facility] [place] She was sent to the hospital for assessment of symptoms of having increased confusion and lethargy. The patient was seen in the Emergency Room yesterday because of that. She has been given hemodialysis yesterday as well for her routine dialysis. The patient was noted with symptoms of a change in mental status, which has been noted progressive. The patient was not remembering any other symptoms. The patient at this time of assessment, she does not know why she came to the hospital. The patient currently was noted with symptoms of coughing, which has been noted for the past few days, noted nonproductive. Shortness of breath was noted still this morning, but noted decreased, which has been ongoing for the past couple of days as per patient. She denies symptoms of wheezing or chest pain. REVIEW OF SYSTEMS: CONSTITUTIONAL: Fatigue and tiredness noted for the patient ____ fever or chills. EYES: Denies any burning, redness, or tenderness. EARS, NOSE, THROAT SYMPTOMS: Denies sore throat, hoarseness, otalgia, postnasal drainage or epistaxis. CARDIOVASCULAR: Denies anginal pain, edema, pain of the lower extremities. GASTROINTESTINAL: Dysphagia, nausea, vomiting, diarrhea, abdominal pain, hematemesis, melena, or hematochezia. GENITOURINARY: There are no symptoms of dysuria, suprapubic pain for the patient. History of end-stage renal failure. There were no flank pain. MUSCULOSKELETAL: No acute joint pain, redness, or tenderness. SKIN: Denies any lesions, rashes or itching. CENTRAL NERVOUS SYSTEM: No dizziness, headache, diplopia, syncopal episodes. Remaining systems were reviewed. They were noted all negative. PAST MEDICAL HISTORY: 1. The patient was known with history of moderate obesity. 2. Chronic hypoxic respiratory failure, use of oxygen. 3. History of failure, on hemodialysis. 4. Type 2 diabetes mellitus. 5. Chronic pain syndrome. 6. History of recreational drug use in the past. 7. Diabetic nephropathy. 8. Essential hypertension. 9. Gastroparesis related to diabetes mellitus. 10. Past history of pneumonia. 11. History of nicotine use. [place], [place] REPORT OF CONSULTATION NAME: KARTHIKEYAN MIDDLETON UNIT #: [id number] ROOM: [facility] DOCTOR[facility] B[facility] [birth year] PAST SURGICAL HISTORY: 1. . 2. MediPort insertion. 3. Temporary dialysis catheter insertion pulmonary dialysis catheter insertion later on. SOCIAL HISTORY: She is not , lives [facility] [place] [facility]. Does not have any children. She has been noted with past history of illicit drug use. The patient is residing in the [place] [facility] for quite some time. She has been noted tobacco use since teenager, pack of cigarettes per day with intermittent tobacco use. FAMILY HISTORY: The patient noted for pancreatic cancer in the father who . The history about mom was not known to the patient. MEDICATIONS: The current medication, which were administered noted use of vitamin D, famotidine, citalopram, Coreg, insulin coverage, liothyronine, levothyroxine, Lantus insulin, atenolol, and Xalatan eye drops, Reglan 5 mg q. 6 hours p.r.n. for any stomach upset, Lyrica 200 mg p.o. b.i.d., and OxyContin 5 mg 8 hours p.r.n. for pain. DRUG ALLERGIES: The patient was noted as allergy to 1. IODINE. 2. BIAXIN. PHYSICAL EXAMINATION: GENERAL: A 51-year-old female patient currently noted awake and alert. Height of 5 feet 2 inches, weight of 229 pounds, BMI 41.9. VITAL SIGNS: For the patient which has been recorded. The patient showed normal temperature, respiratory rate 12-14, heart rate 65-69, blood pressure 115/54 and 120/69, pulse oxygen saturation on 4-5 liters nasal cannula 98% saturation on the BiPAP. The patient 30% oxygen. Psych 16, weight is 96% saturation. HEENT: Examination shows head was atraumatic. Eyes nonicterus. Moderate obesity. NECK: Severe reduced posterior pharyngeal space, high tongue base and crowding of soft tissue structures. ABDOMEN: Noted with chronic moderate obesity without tenderness. Bowel sounds present. CENTRAL NERVOUS SYSTEM: Cranial nerves 2-12 intact. MUSCULOSKELETAL: Without any acute deformities. LABORATORY DATA: The arterial blood gas that was done in the Emergency Room, pH of 7.26, pCO2 of 58, pO2 of 173, 5 liter nasal cannula. The lactic acid noted as normal yesterday. PT/PTT normal yesterday. The CMP of patient that was done for 25, BUN 30, and creatinine 5.18. Sodium 140 and potassium was normal. CBC of the patient that was done yesterday, WBC count normal, hemoglobin 9.3, platelet count was normal. The chest x-ray of the patient that was done for the patient yesterday was reviewed. It shows evidence of pleural fluid for the [place], [place] REPORT OF CONSULTATION NAME: KARTHIKEYAN MIDDLETON UNIT #: [id number] ROOM: [facility] DOCTOR: RENÉ TEJADA MD BIRTHDATE: [birth year] patient with congestive heart failure findings. CT scan of the the abdomen and pelvis, which was done on 08/21/2017. The finding were reviewed without any acute abnormalities. Mild edema in the anterior subcutaneous tissue of the pelvic was reported. Correlate a possibility of cellulitis. IMPRESSION: 1. The patient will be currently admitted to the hospital for changes in mental status secondary to congestive heart failure, possibility of viral syndrome causing the current symptom cannot be excluded. 2. The patient with morbid obesity with a suspicion diagnosis of obstructive sleep apnea disorder as well. 3. History of chronic hypoxic respiratory failure for the patient as well. 4. Acute hypercarbia with chronic hypercarbic respiratory failure. 5. History of tobacco use, suspected chronic obstructive pulmonary disease diagnosis, but the patient has not been seen in the office for further assessment for quite a bit of time. PLAN OF MANAGEMENT: Hemodialysis per order of Nephrology service. Obtain a PA lateral chest x-ray today to reassess. BiPAP was ordered for the patient yesterday. The patient with the current setting to be continued. Obtain other arterial blood gas of this morning, the patient to reassess improvement in the ventilatory status. Titrate oxygen supplementation, maintain pulse ox saturation 90% greater. Usual care, other supportive plan of therapy and care. Additional treatment changes for this patient to be made based on the progression of the illness. Usual care. Cardiology assessment for the patient might need to be done as well. The nasopharyngeal swab will be obtained for the Haemophilus influenza infection and other viral panel will be obtained. The patient would be also recommended outpatient assessment for the possible assessment consideration for the patient for the obstructive sleep apnea disorder, which would be considered very likely resulting in further hypercarbia. Thanks for allowing me to participate in the care of this patient. RENÉ CALIX MD CM:CONSTR:REPORT OF CONSULTATION 0808 08/22/17 1508 interface
[~2017-08-21 16:03] MED LIST changes: +ATIVAN0.5 MG PO; +DOXYCYCLINE MO100 M1 PO; +HYDROXYZINE10 MG PO; +LEVOTHYROXINE50 MCG PO; +LYRICA50 M1 PO; -SYNTHROID25 MCG PO; +TRIPLE ANTIBI28.4 G1 T
[2017-08-21 16:07] VITALS: BP 110/62
[2017-08-21 16:34] LABS: ABG BASE EXCESS -1.3 mmol/L (-2.0-2.0); ABG HCO3 25.7 mmol/l (22-26); ABG O2 SATURATION 98.7 % (95-97); ARTERIAL BLOOD GAS PCO2 58.2 mmHg (35-45); ARTERIAL BLOOD GAS PH 7.267 (7.35-7.45)
[2017-08-21 16:48] LABS: ACT PARTIAL THROMBO TIME 22.4 SECONDS (20.8-31.5); INTERNATIONAL NORM RATIO 1.1 (2.0-3.5)
[2017-08-21 16:56] LABS: TROPONIN I < 0.015 ng/ml (<0.045)
[2017-08-21 16:59] LABS: ALBUMIN 3.3 gm/dl (3.1-4.5); CREATININE 5.18 mg/dL (0.55-1.02); POTASSIUM 4.7 mmol/L (3.5-5.1); TOTAL PROTEIN 8.6 gm/dL (6.4-8.2)
[2017-08-21 17:02] LABS: BASO % 0.3 % (0.0-1.0); EOS # 0.1 10*3/uL (0.0-0.4); EOS % 0.6 % (1.0-4.0); HEMATOCRIT 31.4 % (37.0-47.0); HEMOGLOBIN 9.3 g/dl (12.0-16.0); LYMPH # 0.5 10*3/uL (1.3-4.4); LYMPH % 5.4 % (27.0-41.0); MEAN CELL VOLUME 96.3 fl (81.0-99.0); MEAN CORPUSCULAR HGB 28.5 pg (27.0-31.0); MEAN CORPUSCULAR HGB CONC 29.6 g/dl (33.0-37.0); MEAN PLATELET VOLUME 10.4 fl (9.6-12.3); MONO # 0.9 10*3/uL (0.1-1.0); MONO % 9.1 % (3.0-9.0); NEUT # 8.3 10*3/uL (2.3-7.9); NEUT % 83.9 % (47.0-73.0); NUCLEATED RED BLOOD CELL 0.4 % (0.0-0.0); PLATELET COUNT AUTOMATED 250 10*3/uL (130-400); RED BLOOD COUNT 3.26 10*6/uL (4.10-5.10); RED CELL DISTRI WIDTH 17.3 % (0-14.5); WHITE BLOOD COUNT 9.9 10*3/uL (4.8-10.8)
[2017-08-21 18:00] VITALS: BP 145/61
[2017-08-21 18:45] VITALS: BP 128/69
[2017-08-21] MEDS ORDERED: LYRICA100 M1 PO (19:17)
[2017-08-21 19:21] LABS: BILIRUBIN 1+ (NEGATIVE); BLOOD 3+ (NEGATIVE); CLARITY TURBID (CLEAR); COLOR YELLOW (YELLOW); GLUCOSE NEGATIVE (NEGATIVE); KETONE TRACE (NEGATIVE); LEUKO ESTERASE 3+ (NEGATIVE); NITRITE NEGATIVE (NEGATIVE); SPECIFIC GRAVITY 1.025 (1.005-1.030); UROBILINOGEN 0.2 E.U./dl (0.2-1.0)
[2017-08-21] MEDS ORDERED: LANTUS SOL100 UNIT/1 SC (19:23)
[2017-08-21 19:29] LABS: WBC TNTC wbc/hpf (0-5)
[2017-08-21] MEDS ORDERED: HUMALOG100 UNIT/2 SQ (19:30)
[2017-08-21] MEDS ORDERED: LIOTHYRONINE SO5 MCG PO (19:30)
[2017-08-21] MEDS ORDERED: VITAMIN D50000 UNIT PO (19:32)
[2017-08-21] MEDS ORDERED: PROVENTIL HFA6.7 GM INH (19:35)
[2017-08-21] MEDS ORDERED: OXYCODONE HCL5 M1 PO (19:38)
[2017-08-21] MEDS ORDERED: ANBESOL9 GM PO (19:40)
[2017-08-21] MEDS ORDERED: FOLTANX TABLET1 EACH PO (19:41)
[2017-08-21] MEDS ORDERED: ARANESP60 MCG/1 M IJ (19:44)
[2017-08-21] MEDS ORDERED: CITALOPRAM20 MG PO (19:48)
[2017-08-21 20:00] VITALS: BP 131/61
[2017-08-22] VITALS: BP 114/60
[2017-08-22 04:00] VITALS: BP 115/54
[2017-08-22 08:00] VITALS: BP 108/63
[2017-08-22 08:04] LABS: ABG HCO3 25.9 mmol/l (22-26); ABG O2 SATURATION 96.2 % (95-97); ARTERIAL BLOOD GAS PCO2 58.6 mmHg (35-45); ARTERIAL BLOOD GAS PH 7.268 (7.35-7.45); ARTERIAL BLOOD GAS PO2 90.1 mmHg (80-90)
[2017-08-22 11:25] VITALS: BP 106/48
[2017-08-22 16:00] VITALS: BP 100/30
[2017-08-22 20:00] VITALS: BP 118/56
[2017-08-23] VITALS: BP 130/54
[2017-08-23 04:00] VITALS: BP 140/60
[2017-08-23 04:41] LABS: BASO # 0.1 10*3/uL (0.0-0.1); BASO % 0.7 % (0.0-1.0); EOS # 0.2 10*3/uL (0.0-0.4); EOS % 2.9 % (1.0-4.0); HEMATOCRIT 29.6 % (37.0-47.0); HEMOGLOBIN 8.9 g/dl (12.0-16.0); LYMPH # 1.2 10*3/uL (1.3-4.4); LYMPH % 16.3 % (27.0-41.0); MEAN CELL VOLUME 95.5 fl (81.0-99.0); MEAN CORPUSCULAR HGB 28.7 pg (27.0-31.0); MEAN CORPUSCULAR HGB CONC 30.1 g/dl (33.0-37.0); MEAN PLATELET VOLUME 10.2 fl (9.6-12.3); MONO # 1.2 10*3/uL (0.1-1.0); MONO % 15.7 % (3.0-9.0); NEUT # 4.8 10*3/uL (2.3-7.9); NEUT % 63.2 % (47.0-73.0); NUCLEATED RED BLOOD CELL 0.4 % (0.0-0.0); PLATELET COUNT AUTOMATED 222 10*3/uL (130-400); RED CELL DISTRI WIDTH 17.4 % (0-14.5); WHITE BLOOD COUNT 7.6 10*3/uL (4.8-10.8)
[2017-08-23 05:10] LABS: ALBUMIN 2.9 gm/dl (3.1-4.5); POTASSIUM 4.4 mmol/L (3.5-5.1)
[2017-08-23 05:11] LABS: CREATININE 7.33 mg/dL (0.55-1.02); PHOSPHOROUS 5.6 mg/dL (2.5-4.9)
[2017-08-23 08:00] VITALS: BP 152/77
[2017-08-23 12:00] VITALS: BP 160/71
[2017-08-23 16:00] VITALS: BP 146/71
[2017-08-23 20:00] VITALS: BP 122/44
[2017-08-24] VITALS: BP 141/64
[2017-08-24 07:04] LABS: CREATININE 4.98 mg/dL (0.55-1.02); POTASSIUM 4.1 mmol/L (3.5-5.1)
[2017-08-24 08:00] VITALS: BP 119/46
[2017-08-24] MEDS ORDERED: FLUCONAZOLE100 MG PO (08:15)
[2017-08-24 12:00] VITALS: BP 110/53
[2017-08-27 02:04] LABS: ADENOVIRUS Negative (Negative); INFLUENZA A Negative (Negative); INFLUENZA B Negative (Negative); METAPNEUMOVIRUS Negative (Negative); PARAINFLUENZA 1 Negative (Negative); PARAINFLUENZA 2 Negative (Negative); PARAINFLUENZA 3 Negative (Negative); RHINOVIRUS Negative (Negative); RSV A Negative (Negative); RSV B Negative (Negative)
== END 2017-08-24 15:11 | DRG 291 ==
LOC: ED 16:03 → ICCU 17:22 → EDHOLD 17:22 → ICCU 17:35 → 5E 08-23 14:08
PROVIDERS: Emergency Medicine; Internal Medicine; Internal Medicine Critical Care Medicine
PROC: 5A09357 Assistance with Respiratory Ventilation, Less than 24 Consecutive Hours, Continuous Positive Airway Pressure (ICD-10-PCS; principal; 2017-08-21)
PROC: 5A09357 Assistance with Respiratory Ventilation, Less than 24 Consecutive Hours, Continuous Positive Airway Pressure (ICD-10-PCS; 2017-08-22)
PROC: 5A1D70Z Performance of Urinary Filtration, Intermittent, Less than 6 Hours Per Day (ICD-10-PCS; 2017-08-23)
PROC: 5A09357 Assistance with Respiratory Ventilation, Less than 24 Consecutive Hours, Continuous Positive Airway Pressure (ICD-10-PCS; 2017-08-23)
DX: I13.2 Hypertensive heart and chronic kidney disease with heart failure and with stage 5 chronic kidney disease, or end stage renal disease (principal); J96.22 Acute and chronic respiratory failure with hypercapnia; E11.22 Type 2 diabetes mellitus with diabetic chronic kidney disease; I50.33 Acute on chronic diastolic (congestive) heart failure; N18.6 End stage renal disease; L97.429 Non-pressure chronic ulcer of left heel and midfoot with unspecified severity; L97.419 Non-pressure chronic ulcer of right heel and midfoot with unspecified severity; L98.498 Non-pressure chronic ulcer of skin of other sites with other specified severity; N39.0 Urinary tract infection, site not specified; Z68.41 Body mass index [BMI] 40.0-44.9, adult; E11.69 Type 2 diabetes mellitus with other specified complication; E11.621 Type 2 diabetes mellitus with foot ulcer; E11.51 Type 2 diabetes mellitus with diabetic peripheral angiopathy without gangrene; F17.210 Nicotine dependence, cigarettes, uncomplicated; E11.622 Type 2 diabetes mellitus with other skin ulcer; G47.33 Obstructive sleep apnea (adult) (pediatric); E78.5 Hyperlipidemia, unspecified; R62.7 Adult failure to thrive; R31.9 Hematuria, unspecified; E11.65 Type 2 diabetes mellitus with hyperglycemia; F41.1 Generalized anxiety disorder; G89.4 Chronic pain syndrome; E66.01 Morbid (severe) obesity due to excess calories; J44.9 Chronic obstructive pulmonary disease, unspecified; Z80.0 Family history of malignant neoplasm of digestive organs; Z88.1 Allergy status to other antibiotic agents; Z91.041 Radiographic dye allergy status; Z91.013 Allergy to seafood; Z99.2 Dependence on renal dialysis; Z79.899 Other long term (current) drug therapy; Z79.4 Long term (current) use of insulin

== ENCOUNTER 2017-08-25 08:14 | Inpatient (IN) | payer MEDICARE, MEDICAID ==
[~2017-08-25] VITALS: Ht 162.5 cm; Wt 103.9 kg
--- NOTE | ~2017-08-25 | CON ---
[place], [place] REPORT OF CONSULTATION NAME: KARTHIKEYAN MIDDLETON UNIT #: [id number] ROOM: 412 DOCTOR: FILIPE RUBI DPM BIRTHDATE: [birth year] DOS: 08/27/2017 SUBJECTIVE: The patient presents as a 51-year-old female for followup of ulcerations of both feet. PAST MEDICAL HISTORY: Recent hospitalization for hypercapnic respiratory failure, end-stage renal failure, chronic diastolic CHF, diabetes type 2, hypertension. SOCIAL HISTORY: Smoking. Denies alcohol or illicit drug use. PHYSICAL EXAMINATION: EXTREMITIES: Lower extremity examination: Pedal pulses diminished bilateral. Decreased skin temperature. Decreased hair growth. Decreased epicritic sensations. Ulcerations to the dorsal first right MPJ is partial thickness. No signs of infection. Eschar to posterior right heel still noted. No signs of abscess or infection. Ulceration to fifth left MPJ with eschar. No signs of purulent drainage, erythema or infection. ASSESSMENT: Diabetes with peripheral vascular disease, ulcerations of fifth left MPJ right heel and dorsal first right MPJ. PLAN: Evaluation and management. Continue offloading, Bactroban and gauze dressings daily. The patient is being discharged later today and will follow at the office next week. FILIPE RUBI DPM CM:CONSTR:REPORT OF CONSULTATION 1308 08/27/17 1323 interface
--- NOTE | ~2017-08-25 | PR ---
[place], [place] PROGRESS NOTE NAME: [facility] MIDD[facility]TON [id number] UN[facility] #: [id number] ROOM: 412 DOCTOR: MELISSA CORTES MD BIRTHDATE: [birth year] DOS: 08/27/2017 SUBJECTIVE: The patient is doing fine this morning, sitting up, eating her breakfast. OBJECTIVE: VITAL SIGNS: Blood pressure is 129/75, pulse of 71, respirations 18, temperature 98.1. LUNGS: Diminished breath sounds. No wheezes heard. HEART: Regular. ABDOMEN: Obese, soft. EXTREMITIES: Without any edema. Some anasarca noted in the abdominal wall. ASSESSMENT AND PLAN: 1. Pneumonia. On IV antibiotics with elevated white cell count, most likely Gram-negative, awaiting the white cell count today. 2. End-stage renal failure, on dialysis. The plan is to discharge her back to alf with antibiotics to be given during dialysis. MELISSA CORTES MD CM:PNTRANS [id number] MELISSA CORTES MD 08/27/17 0932 interface
--- NOTE | ~2017-08-25 | CON ---
[place], [place] REPORT OF CONSULTATION NAME[facility]KEYAN MIDDLETON [id number] UNIT #: [id number] ROOM: 412 DOCTOR: RENÉ TEJADA MD BIRTHDATE: [birth year] DOS: 08/26/2017 PULMONARY CONSULTATION EVALUATION MANAGEMENT REASON FOR CONSULTATION: To assess the patient for possibility of acute pneumonia and the respiratory problem. REQUESTING PHYSICIAN: The consultation is requested by Dr. Lluvia Presley. HISTORY OF PRESENT ILLNESS: This is a 51-year-old white female patient who has been recently admitted to the hospital, treated for fluid overload with congestive heart failure and acute respiratory failure, and change in mental status. The patient has been treated in the hospital, after dialysis the conservative treatment was done and discharged back to the nursing facility. The patient also required the BiPAP use, which was ordered to be used in a nursing facility, a diagnosis of obstructive sleep apnea disorder was also suspected. The patient came into the Emergency Room as she has been noted with symptoms of increased shortness of breath. She was also noted with symptoms of nausea, vomiting as well as abdominal pain. Pain was described as nonspecific. The shortness of breath has been occurring with the current GI symptoms. She denies symptoms of hemoptysis. There was no witnessed aspiration reported. Denies any symptoms of pain in the chest or wheezing. The CT scan of the abdomen and pelvis which was completed in the Emergency Room reported with possibility of acute pneumonia or atelectasis in the lower lungs. REVIEW OF SYSTEMS: CONSTITUTIONAL: Fatigue and tiredness reported by the patient without any symptoms of fever or chills. EYES: Denies any burning, redness, or tenderness. EARS, NOSE, THROAT SYMPTOMS: Denies sore throat, hoarseness, otalgia, postnasal drainage or epistaxis. CARDIOVASCULAR: Denies anginal pain, edema or pain in the lower extremities. GASTROINTESTINAL: Recent symptoms of nausea, vomiting with nonspecific upper abdominal pain seemed to be resolved at this time. There were symptoms of dysphagia. GENITOURINARY: History of end-stage renal failure, hemodialysis 3 times a week. SKIN: Denies abnormal lesions or rashes. MUSCULOSKELETAL: Denies acute deformities of pain or redness on any of the joints. CENTRAL NERVOUS SYSTEM: No dizziness, headache, diplopia, syncopal or with limited mobility, which is chronic. The remaining systems were reviewed, they were noted all negative. Past medical history, surgical history, social history, family history all reviewed and unchanged since my consultation 08/22/2017. The document was present and available in the [employer] for review and reference. CURRENT MEDICATIONS: Administered for the patient on this hospitalization: 1. Vancomycin dose per pharmacy. 2. Liothyronine, sliding insulin coverage, citalopram, Coreg, calcium acetate, [place], [place] REPORT OF CONSULTATION NAME: KARTHIKEYAN MIDDLETON UNIT #: [id number] ROOM: [facility] DOCTOR: FIFI MUHAMMAD MD,[facility] BIRTHDATE: [birth year] famotidine, levothyroxine, DuoNeb, Reglan, lorazepam and other p.r.n. medications. ALLERGIES: The patient's drug allergy noted as allergy: 1. IODINE. 2. BIAXIN. PHYSICAL EXAMINATION: GENERAL: A 51-year-old female noted to be awake and alert without acute distress. Height 5 feet 4 inches, weight of 229 pounds. BMI was noted 41 previously. VITAL SIGNS: The patient noted with temperature of 101.9 degree Fahrenheit to normal temperature this morning, respiratory rate 18-20, heart rate 71-94, blood pressure 54/49-140/70. Her pulse oxygen saturation on 5 L nasal cannula was 92% saturation, later on 4 L nasal cannula with 99% saturation. HEENT: Moderate obesity. Head was atraumatic. Eyes: No icterus. Chronic left eye blindness. CARDIOVASCULAR: S1, S2 audible. LUNGS: Decreased breath sounds noted without any wheezing or crackles at the present time. ABDOMEN: Soft, obese, nontender. EXTREMITIES: With edema. SKIN: Visible skin, no lesions or rashes. MUSCULOSKELETAL: Without any acute deformities. GENITOURINARY: General weakness without any focal neurologic deficit. LABORATORY DATA: CMP, BUN 52, creatinine 6.78, glucose 266 noted yesterday. The CBC yesterday, WBC count elevated at 18,000, hemoglobin 10.4, hematocrit 35.2, platelet count ____. Chest x-ray limited view noted basilar area of infiltration. CT scan of the chest does show evidence of acute infiltration, consolidation noted new in lower lungs, greater on the left than the right side. There were no pleural effusion. IMPRESSION: 1. The patient with acute pneumonia which has been noted possibly aspiration cannot be excluded associated GI symptoms, etiology unclear, may be related to current active infection. 2. Acute on chronic hypoxic respiratory failure requiring increased amount of oxygen supplementation. 3. Obstructive sleep apnea disorder suspected clinically, requires further assessment. 4. End-stage renal failure, hemodialysis. 5. History of nicotine abuse. 6. Bronchial asthma/ chronic obstructive pulmonary disease without any acute exacerbation. PLAN OF MANAGEMENT: The patient has been responding to use of intravenous Levaquin at the hospital-associated infection would be considered with history of end-stage renal failure, likely organism. Continuation of the hemodialysis, maximal fluid, water removal. The bronchodilators. If necessary, bronchoscopy [place], [place] REPORT OF CONSULTATION NAME: KARTHIKEYAN MIDDLETON UNIT #: [id number] ROOM: [facility] DOCTOR: FIFI MUHAMMAD MD,RENÉ BIRTHDATE: [birth year] done in case of worsening of the cough and no response to the antibiotic for the current pneumonia. Usual care aspiration precautions. Continue to assess and manage the patient's GI symptoms accordingly. Thanks for allowing me to participate in the care of this patient. RENÉ CALIX MD CM:CONSTR:REPORT OF CONSULTATION 1537 08/27/17 0417 interface
--- NOTE | ~2017-08-25 | PR ---
[place], [place] PROGRESS NOTE NAME: KARTHIKEYAN MIDDLETON UNIT #: [id number] ROOM: 412 DOCTOR: RENÉ TEJADA MD BIRTHDATE: [birth year] DOS: 08/27/2017 SUBJECTIVE: The patient has been noted without any acute distress at this time, comfortably resting. Shortness of breath has been improving for the patient. She does have some cough, but there was no sputum expectoration. She received the hemodialysis yesterday. OBJECTIVE: VITAL SIGNS: Today, temperature remains normal, respiratory rate 18, heart rate 71, blood pressure 129/75 today. Pulse oxygen saturation on 4.5 liters nasal cannula 97% saturation. HEENT: Chronic obesity. NECK: Supple. CARDIOVASCULAR: S1, S2 audible. LUNGS: The patient was noted with decreased breath sounds in the lower portion of the lungs bilaterally. Crackles are noted. ABDOMEN: Soft and obese. EXTREMITIES: Still noted with 1-2+ pitting edema. IMPRESSION: 1. The patient who has been currently noted with acute lower lobe pneumonia from aspiration, responding to the treatment with use of the vancomycin. She remains afebrile. 2. Resolving acute on chronic hypoxic respiratory failure as well. PLAN OF MANAGEMENT: Obtain a chest x-ray in the morning for this patient for tomorrow. Continuation of the oxygen supplementation and bronchodilators administration. Continuation of the current antibiotic of the patient adjusted due to her kidney functions. The additional treatment changes will be made for the patient based on progression of the illness. The BiPAP use for the patient has been ordered at the nighttime and p.r.n. in the daytime as necessary. Assessment for the sleep apnea disorder would be done as an outpatient after discharge from the hospital. [place], [place] PROGRESS NOTE NAME: KARTHIKEYAN MIDDLETON UNIT #: [id number] ROOM: 412 DOCTOR: RENÉ TEJADA MD BIRTHDATE: [birth year] RENÉ CALIX MD CM:PNTRANS [id number] RENÉ MUHAMMAD MD 08/28/17 0107 interface
--- NOTE | ~2017-08-25 | WRIGHTHP ---
[place], [place] PATIENT HISTORY AND PHYSICAL EXAM NAME: KARTHIKEYAN MIDDLETON [facility] #: [id number] UNIT #: [id number] ROOM: 412 DOCTOR: MELISSA CORTES MD BIRTHDATE: [birth year] DOS: 08/25/2017 HISTORY OF PRESENT ILLNESS: The patient is 51-year-old. She was discharged from the hospital on Saturday morning. After she went back to the group home, the patient states that she was having some shortness of breath and nausea, emesis and abdominal pain. She was sent back to the Emergency Room on Saturday morning. She had an elevated white cell count of 18,000. Normal lactic acid. Abdominal CT scan was negative, but it showed possibility of infiltrates in the lower bases. Because of her elevated white cell count, we admitted the patient for further management. This morning the patient does not have any complaints. She is getting her dialysis. She denies having any chest pains or palpitations. Abdominal pain has completely resolved. PAST MEDICAL HISTORY: Significant for: 1. The recent hospitalization for hypercapnic respiratory failure, was started on BiPAP. 2. End-stage renal failure. 3. Chronic diastolic CHF. 4. Type 2 diabetes mellitus. 5. Hypertension. MEDICATIONS: She is currently on brimonidine eyedrops, latanoprost eyedrops, calcium acetate 667 t.i.d. with meals, Coreg 12.5 mg daily, citalopram 20 daily, levothyroxine and liothyronine both, Ativan 0.5 q, 8 hours, Reglan, oxycodone q. 8 hours, Lyrica 100 b.i.d., zinc oxide 50 daily, Insulin Lantus 30 units subcutaneous twice a day. SOCIAL HISTORY: History of smoking. Denies using any alcohol. PHYSICAL EXAMINATION: GENERAL: She is awake and alert and oriented, in no distress this morning. VITAL SIGNS: Graphic trend shows blood pressure of 142/70, pulse of 76, respirations 14, afebrile. LUNGS: Diminished breath sounds, clear. HEART: Regular. ABDOMEN: Obese, a lot of abdominal wall edema is noted. EXTREMITIES: Noticed about 2+ pitting edema bilaterally. ASSESSMENT AND PLAN: 1. The patient comes in with abdominal pain, elevated white cell count. CT of the abdomen and pelvis negative except for bilateral infiltrates in lower lobes. 2. Possibility of pneumonia. 3. CT of the chest has been ordered. The patient has been placed on antibiotics for nosocomial infections since she was hospitalized just recently. 4. End-stage renal failure, on dialysis. She has quite a lot of volume overload. The patient states that she is not drinking water or excessive amounts of fluids and she is watching her diet as per the patient. 5. Type 2 diabetes mellitus. Blood sugars are to be checked. Coverage scale ordered. [place], [place] PATIENT HISTORY AND PHYSICAL EXAM [facility]: [id number] UN[facility] #: [id number] ROOM: [facility] DOCTOR: MELISSA CORTES MD BIRTHDATE: [birth year] MELISSA CORTES MD CM:HISPHYS:PATIENT HISTORY AND PHYSICAL EXAMINATION 0839 1 MELISSA CORTES MD 08/26/17 09 interface
--- NOTE | ~2017-08-25 | DS ---
[place], [place] DISCHARGE SUMMARY NAME: KARTHIKEYAN MIDDLETON [facility] #: [id number] UNIT #: [id number] ROOM: 412 DOCTOR: MELISSA CORTES MD BIRTHDATE: [birth year] DOS: HOSPITAL COURSE: The patient is 51-year-old, multiple admissions to the hospital, discharged on Saturday, presented back on Saturday with abdominal pain and elevated white cell of 18,009 and thought to have pneumonia on a chest x-ray and she was admitted. After admission, the patient again was placed on IV antibiotics. Cultures were done. Dr. Barr was consulted. For the elevated white cell count, the patient was placed on vancomycin. The patient has not had any fever since admission. She remained asymptomatic. Abdominal pain has resolved and the patient is eating well. She has undergone dialysis and has tolerated that very well. A CT of the abdomen was done in the Emergency Room, which came back negative except for infiltrates bilaterally in the lower lobes, for which again the patient is on multiple antibiotics. A dedicated CT of the chest is ordered today as well as a repeat CBC. If they come back normal, the patient could be discharged back to the [facility] on IV antibiotics to be given during dialysis. We will make that decision once we have the report of the studies as well as the CBC report. DISCHARGE MEDICATIONS: Right now we will be DuoNeb q. 4 hours, ____ eyedrops, calcium acetate 1334 mg t.i.d., Coreg 12.5 daily, bisacodyl 10 mg p.r.n., Pepcid 20 daily, latanoprost eye drops at bedtime, Reglan 10 q. 6 hours p.r.n. for nausea, levothyroxine 50 mcg, timolol eyedrops b.i.d., Tylenol 650 q. 6 hours, ascorbic acid, zinc sulfate, lorazepam 0.5 q. 8 hours, Lyrica 100 b.i.d., triple antibiotic cream for heels, lispro 4 units subcutaneous t.i.d., Lantus 30 units p.o. twice a day, liothyronine 5 mcg daily, vitamin D 50,000 once a week, oxycodone 5 q. 8 hours, citalopram 20 daily, fluconazole 100 daily for 5 days. DIET: ADA 1800, fluid restriction to about 1800 mL. MELISSA CORTES MD CM:CLIFTON [id number] MELISSA CORTES MD 08/27/17 0932 interface
[~2017-08-25 08:14] MED LIST changes: +ANBESOL9 GM PO; +CITALOPRAM20 MG PO; +FLUCONAZOLE100 MG PO; +FOLTANX TABLET1 EACH PO; +LANTUS SOL100 UNIT/1 SC; +LIOTHYRONINE SO5 MCG PO; +OXYCODONE HCL5 M1 PO; +VITAMIN D50000 UNIT PO
[2017-08-25 08:23] VITALS: BP 154/49
[2017-08-25 08:44] LABS: HEMATOCRIT 35.2 % (37.0-47.0); HEMOGLOBIN 10.4 g/dl (12.0-16.0); MEAN CELL VOLUME 96.2 fl (81.0-99.0); MEAN CORPUSCULAR HGB 28.4 pg (27.0-31.0); MEAN CORPUSCULAR HGB CONC 29.5 g/dl (33.0-37.0); NUCLEATED RED BLOOD CELL 0.1 10*3/uL (0.0-0.0); NUCLEATED RED BLOOD CELL 0.4 % (0.0-0.0); PLATELET COUNT AUTOMATED 220 10*3/uL (130-400); RED BLOOD COUNT 3.66 10*6/uL (4.10-5.10); RED CELL DISTRI WIDTH 17.5 % (0-14.5)
[2017-08-25 08:59] LABS: ALBUMIN 3.2 gm/dl (3.1-4.5); CREATININE 6.78 mg/dL (0.55-1.02); TOTAL PROTEIN 8.8 gm/dL (6.4-8.2)
[2017-08-25 09:03] LABS: BASOPHILS 2 % (0-1); PLATELET SUFFICIENCY NORMAL (NORMAL); TOTAL CELLS COUNTED 100 #CELLS
[2017-08-25 11:04] VITALS: BP 118/68
[2017-08-25 12:00] VITALS: BP 131/62
[2017-08-25 16:00] VITALS: BP 158/85
[2017-08-25 20:00] VITALS: BP 123/51
[2017-08-26] VITALS: BP 140/70
[2017-08-26 12:00] VITALS: BP 107/81
[2017-08-26 16:00] VITALS: BP 136/54
[2017-08-26 20:04] VITALS: BP 139/63
[2017-08-27] VITALS: BP 141/57
[2017-08-27 08:00] VITALS: BP 129/75
[2017-08-27] MEDS ORDERED: DUONEB 3 MG/3 ML3 M1 NEB (08:35)
[2017-08-27 08:59] LABS: BASO % 0.4 % (0.0-1.0); EOS # 0.4 10*3/uL (0.0-0.4); HEMATOCRIT 30.3 % (37.0-47.0); HEMOGLOBIN 9.1 g/dl (12.0-16.0); LYMPH # 0.8 10*3/uL (1.3-4.4); LYMPH % 8.2 % (27.0-41.0); MEAN CELL VOLUME 95.6 fl (81.0-99.0); MEAN CORPUSCULAR HGB 28.7 pg (27.0-31.0); MEAN PLATELET VOLUME 10.6 fl (9.6-12.3); MONO # 1.1 10*3/uL (0.1-1.0); MONO % 11.2 % (3.0-9.0); NEUT # 7.2 10*3/uL (2.3-7.9); NUCLEATED RED BLOOD CELL 0.2 % (0.0-0.0); PLATELET COUNT AUTOMATED 182 10*3/uL (130-400); RED BLOOD COUNT 3.17 10*6/uL (4.10-5.10); RED CELL DISTRI WIDTH 17.5 % (0-14.5); WHITE BLOOD COUNT 9.6 10*3/uL (4.8-10.8)
[2017-08-27 12:00] VITALS: BP 128/66
== END 2017-08-27 16:28 | DRG 871 ==
LOC: ED 08:14 → 4E 10:58 → EDHOLD 10:58 → 4E 11:12
PROVIDERS: Emergency Medicine; Internal Medicine
PROC: 5A1D70Z Performance of Urinary Filtration, Intermittent, Less than 6 Hours Per Day (ICD-10-PCS; principal; 2017-08-26)
DX: A41.9 Sepsis, unspecified organism (principal); J96.21 Acute and chronic respiratory failure with hypoxia; J69.0 Pneumonitis due to inhalation of food and vomit; I13.2 Hypertensive heart and chronic kidney disease with heart failure and with stage 5 chronic kidney disease, or end stage renal disease; N18.6 End stage renal disease; I50.32 Chronic diastolic (congestive) heart failure; Z68.41 Body mass index [BMI] 40.0-44.9, adult; E11.22 Type 2 diabetes mellitus with diabetic chronic kidney disease; E11.42 Type 2 diabetes mellitus with diabetic polyneuropathy; L97.529 Non-pressure chronic ulcer of other part of left foot with unspecified severity; J44.9 Chronic obstructive pulmonary disease, unspecified; F17.210 Nicotine dependence, cigarettes, uncomplicated; E11.51 Type 2 diabetes mellitus with diabetic peripheral angiopathy without gangrene; L97.519 Non-pressure chronic ulcer of other part of right foot with unspecified severity; E11.65 Type 2 diabetes mellitus with hyperglycemia; E78.5 Hyperlipidemia, unspecified; G89.4 Chronic pain syndrome; D64.9 Anemia, unspecified; E66.01 Morbid (severe) obesity due to excess calories; F41.1 Generalized anxiety disorder; Z99.2 Dependence on renal dialysis; Z79.4 Long term (current) use of insulin; Z79.899 Other long term (current) drug therapy; Z88.1 Allergy status to other antibiotic agents; Z91.041 Radiographic dye allergy status; Z99.81 Dependence on supplemental oxygen; Z87.440 Personal history of urinary (tract) infections; Z83.3 Family history of diabetes mellitus; Z80.0 Family history of malignant neoplasm of digestive organs; Z84.89 Family history of other specified conditions

== ENCOUNTER 2017-09-18 11:28 | Inpatient (IN) | payer MEDICARE, MEDICAID ==
[2017-09-18] VITALS (7 sets, daily range): BP systolic 94–151; BP diastolic 30–60
[~2017-09-18] VITALS: Ht 162.5 cm; Wt 102.3 kg
[~2017-09-18 11:28] MED LIST changes: +DUONEB 3 MG/3 ML3 M1 NEB
[2017-09-18 12:05] LABS: HEMATOCRIT 35.1 % (37.0-47.0); HEMOGLOBIN 10.5 g/dl (12.0-16.0); MEAN CELL VOLUME 95.6 fl (81.0-99.0); MEAN CORPUSCULAR HGB 28.6 pg (27.0-31.0); MEAN CORPUSCULAR HGB CONC 29.9 g/dl (33.0-37.0); MEAN PLATELET VOLUME 10.6 fl (9.6-12.3); NUCLEATED RED BLOOD CELL 0.2 % (0.0-0.0); PLATELET COUNT AUTOMATED 209 10*3/uL (130-400); RED BLOOD COUNT 3.67 10*6/uL (4.10-5.10); RED CELL DISTRI WIDTH 18.2 % (0-14.5); WHITE BLOOD COUNT 12.5 10*3/uL (4.8-10.8)
[2017-09-18 12:13] LABS: ACT PARTIAL THROMBO TIME 31.1 SECONDS (20.8-31.5)
[2017-09-18 12:21] LABS: ALKALINE PHOSPHATASE 139 U/L (45-117); BUN 26 mg/dl (7-24); CHLORIDE 97 mmol/L (98-107); CREATININE 5.47 mg/dL (0.55-1.02); POTASSIUM 4.3 mmol/L (3.5-5.1); SGOT/AST 16 IU/L (3-35); SGPT/ALT 16 U/L (12-78); SODIUM 132 mmol/L (136-145); TOTAL PROTEIN 8.4 gm/dL (6.4-8.2)
[2017-09-18 12:23] LABS: PLATELET SUFFICIENCY NORMAL (NORMAL); TOTAL CELLS COUNTED 100 #CELLS; TROPONIN I < 0.015 ng/ml (<0.045)
[2017-09-18 13:16] LABS: BILIRUBIN 1+ (NEGATIVE); BLOOD 3+ (NEGATIVE); CLARITY TURBID (CLEAR); COLOR YELLOW (YELLOW); GLUCOSE NEGATIVE (NEGATIVE); KETONE TRACE (NEGATIVE); LEUKO ESTERASE 3+ (NEGATIVE); NITRITE NEGATIVE (NEGATIVE); PH 5.5 (5.0-9.0); SPECIFIC GRAVITY 1.025 (1.005-1.030); UROBILINOGEN 0.2 E.U./dl (0.2-1.0)
[2017-09-18 13:24] LABS: WBC TNTC wbc/hpf (0-5)
[2017-09-18 13:29] LABS: BACTERIA 2+
[2017-09-18 13:30] LABS: YEAST 2+
[2017-09-18] MEDS ORDERED: PERCOCET 5-3251 EACH PO (18:46)
[2017-09-19] VITALS: BP 129/70
[2017-09-19 04:00] VITALS: BP 117/57
[2017-09-19 05:31] LABS: CREATININE 6.34 mg/dL (0.55-1.02); PHOSPHOROUS 5.6 mg/dL (2.5-4.9); POTASSIUM 4.6 mmol/L (3.5-5.1)
[2017-09-19 05:37] LABS: THYROID STIM HORMONE (HS) 0.944 uIU/ml (0.358-4.75)
[2017-09-19 06:20] LABS: HEMATOCRIT 34.5 % (37.0-47.0); HEMOGLOBIN 10.1 g/dl (12.0-16.0); MEAN CELL VOLUME 97.2 fl (81.0-99.0); MEAN CORPUSCULAR HGB 28.5 pg (27.0-31.0); MEAN CORPUSCULAR HGB CONC 29.3 g/dl (33.0-37.0); MEAN PLATELET VOLUME 10.9 fl (9.6-12.3); NUCLEATED RED BLOOD CELL 0.2 % (0.0-0.0); PLATELET COUNT AUTOMATED 203 10*3/uL (130-400); RED BLOOD COUNT 3.55 10*6/uL (4.10-5.10); RED CELL DISTRI WIDTH 18.3 % (0-14.5); WHITE BLOOD COUNT 11.3 10*3/uL (4.8-10.8)
[2017-09-19 07:31] LABS: PLATELET SUFFICIENCY NORMAL (NORMAL); POLYCHROMASIA SLIGHT; TOTAL CELLS COUNTED 100 #CELLS
[2017-09-19 07:52] VITALS: BP 104/45
[2017-09-19 12:45] VITALS: BP 94/41
[2017-09-19 16:00] VITALS: BP 97/41
[2017-09-19 20:00] VITALS: BP 94/41
[2017-09-20] VITALS: BP 94/54
[2017-09-20 06:52] LABS: BASO % 0.4 % (0.0-1.0); EOS # 0.2 10*3/uL (0.0-0.4); EOS % 2.2 % (1.0-4.0); HEMATOCRIT 32.2 % (37.0-47.0); HEMOGLOBIN 9.4 g/dl (12.0-16.0); LYMPH # 0.9 10*3/uL (1.3-4.4); MEAN CELL VOLUME 97.6 fl (81.0-99.0); MEAN CORPUSCULAR HGB 28.5 pg (27.0-31.0); MEAN CORPUSCULAR HGB CONC 29.2 g/dl (33.0-37.0); MEAN PLATELET VOLUME 10.6 fl (9.6-12.3); MONO # 1.5 10*3/uL (0.1-1.0); MONO % 13.6 % (3.0-9.0); NEUT # 8.1 10*3/uL (2.3-7.9); NEUT % 74.9 % (47.0-73.0); NUCLEATED RED BLOOD CELL 0.2 % (0.0-0.0); PLATELET COUNT AUTOMATED 189 10*3/uL (130-400); RED CELL DISTRI WIDTH 18.6 % (0-14.5); WHITE BLOOD COUNT 10.8 10*3/uL (4.8-10.8)
[2017-09-20 07:03] LABS: CREATININE 7.74 mg/dL (0.55-1.02); POTASSIUM 4.3 mmol/L (3.5-5.1)
[2017-09-20 12:00] VITALS: BP 147/64
[2017-09-20 16:00] VITALS: BP 105/47
[2017-09-20 20:00] VITALS: BP 107/53
[2017-09-21 00:58] VITALS: BP 117/53
[2017-09-21 06:46] LABS: CREATININE 5.14 mg/dL (0.55-1.02); PHOSPHOROUS 4.7 mg/dL (2.5-4.9); POTASSIUM 3.7 mmol/L (3.5-5.1)
[2017-09-21 08:00] VITALS: BP 109/59
[2017-09-21 08:50] LABS: ALBUMIN 2.4 gm/dl (3.1-4.5)
[2017-09-21 12:00] VITALS: BP 132/65
[2017-09-21] MEDS ORDERED: ATIVAN0.5 MG PO (13:04)
[2017-09-21] MEDS ORDERED: AUGMENTIN 875875 MG PO (13:04)
[2017-09-21] MEDS ORDERED: PERCOCET 5-3251 EACH PO (13:04)
[2017-09-21] MEDS ORDERED: FLUCONAZOLE100 MG PO (13:04)
== END 2017-09-21 14:10 | DRG 853 ==
LOC: ED 11:28 → ICCU 13:28 → EDHOLD 13:28 → 5E 13:28 → 4E 13:39 → ICCU 19:19 → 5E 09-19 17:27
PROVIDERS: Emergency Medicine; Family Medicine; Internal Medicine
PROC: 0DTJ4ZZ Resection of Appendix, Percutaneous Endoscopic Approach (ICD-10-PCS; principal; 2017-09-18)
PROC: 5A1D70Z Performance of Urinary Filtration, Intermittent, Less than 6 Hours Per Day (ICD-10-PCS; 2017-09-20)
DX: A41.9 Sepsis, unspecified organism (principal); N18.6 End stage renal disease; I13.2 Hypertensive heart and chronic kidney disease with heart failure and with stage 5 chronic kidney disease, or end stage renal disease; E10.22 Type 1 diabetes mellitus with diabetic chronic kidney disease; E87.1 Hypo-osmolality and hyponatremia; K35.3 Acute appendicitis with localized peritonitis; E10.42 Type 1 diabetes mellitus with diabetic polyneuropathy; B37.49 Other urogenital candidiasis; N30.00 Acute cystitis without hematuria; K35.80 Unspecified acute appendicitis; F17.210 Nicotine dependence, cigarettes, uncomplicated; D64.9 Anemia, unspecified; F41.1 Generalized anxiety disorder; G89.4 Chronic pain syndrome; J44.9 Chronic obstructive pulmonary disease, unspecified; E78.5 Hyperlipidemia, unspecified; I50.9 Heart failure, unspecified; E10.65 Type 1 diabetes mellitus with hyperglycemia; Z99.2 Dependence on renal dialysis; Z79.4 Long term (current) use of insulin; Z79.51 Long term (current) use of inhaled steroids; Z79.1 Long term (current) use of non-steroidal anti-inflammatories (NSAID); Z79.899 Other long term (current) drug therapy; Z88.1 Allergy status to other antibiotic agents; Z99.81 Dependence on supplemental oxygen; Z91.013 Allergy to seafood; Z91.041 Radiographic dye allergy status; Z80.0 Family history of malignant neoplasm of digestive organs

== ENCOUNTER 2017-09-23 02:31 | Emergency (ER) | payer MEDICARE, MEDICAID ==
[~2017-09-23] VITALS: Wt 100.0 kg
[~2017-09-23 02:31] MED LIST changes: +PERCOCET 5-3251 EACH PO
[2017-09-23 03:03] LABS: MEAN CELL VOLUME 99.2 fl (81.0-99.0); MEAN CORPUSCULAR HGB 28.3 pg (27.0-31.0); MEAN CORPUSCULAR HGB CONC 28.6 g/dl (33.0-37.0); MEAN PLATELET VOLUME 10.6 fl (9.6-12.3); PLATELET COUNT AUTOMATED 244 10*3/uL (130-400); RED BLOOD COUNT 3.53 10*6/uL (4.10-5.10); RED CELL DISTRI WIDTH 18.4 % (0-14.5); WHITE BLOOD COUNT 12.6 10*3/uL (4.8-10.8)
[2017-09-23 03:13] LABS: ACT PARTIAL THROMBO TIME 25.9 SECONDS (20.8-31.5)
[2017-09-23 03:20] LABS: ALBUMIN 2.6 gm/dl (3.1-4.5); ALKALINE PHOSPHATASE 447 U/L (45-117); CHLORIDE 99 mmol/L (98-107); CREATININE 7.96 mg/dL (0.55-1.02); LIPASE 116 U/L (73-393); POTASSIUM 4.2 mmol/L (3.5-5.1); SGOT/AST 20 IU/L (3-35); SGPT/ALT 21 U/L (12-78); SODIUM 135 mmol/L (136-145); TOTAL PROTEIN 8.7 gm/dL (6.4-8.2)
[2017-09-23 03:21] LABS: BUN 47 mg/dl (7-24); TROPONIN I < 0.015 ng/ml (<0.045)
[2017-09-23 03:30] LABS: PLATELET SUFFICIENCY NORMAL (NORMAL); TOTAL CELLS COUNTED 100 #CELLS
[2017-09-23 04:55] VITALS: BP 112/56
== END 2017-09-23 06:11 | disposition home or self-care (01) ==
LOC: ED 02:31
PROVIDERS: Emergency Medicine Emergency Medical Services
DX: I13.2 Hypertensive heart and chronic kidney disease with heart failure and with stage 5 chronic kidney disease, or end stage renal disease (principal); E11.22 Type 2 diabetes mellitus with diabetic chronic kidney disease; N18.5 Chronic kidney disease, stage 5; I50.9 Heart failure, unspecified; E78.5 Hyperlipidemia, unspecified; E11.40 Type 2 diabetes mellitus with diabetic neuropathy, unspecified; E11.621 Type 2 diabetes mellitus with foot ulcer; F17.210 Nicotine dependence, cigarettes, uncomplicated; Z88.1 Allergy status to other antibiotic agents; Z79.899 Other long term (current) drug therapy

== ENCOUNTER 2017-11-01 17:41 | Inpatient (IN) | payer MEDICARE, MEDICAID ==
[2017-11-01] VITALS (7 sets, daily range): BP systolic 148–216; BP diastolic 84–111
[~2017-11-01] VITALS: Ht 162.5 cm; Wt 106.4 kg
--- NOTE | ~2017-11-01 | O ---
[place], [place] OPERATIVE NOTE NAME: KARTHIKEYAN MIDDLETON [facility] #: [id number] UNIT #: [id number] ROOM: 528 DOCTOR: FILIPE RUBI DPM BIRTHDATE: [birth year] DOS: 11/05/2017 PREOPERATIVE DIAGNOSES: Abscess, fifth left metacarpophalangeal joint and osteomyelitis, fifth left metatarsal. POSTOPERATIVE DIAGNOSES: Abscess, fifth left metacarpophalangeal joint and osteomyelitis, fifth left metatarsal, pending pathology. PROCEDURE: Incision and drainage with bone debridement and biopsy with fifth left toe amputation and partial fifth left metatarsal amputation. ESTIMATED BLOOD LOSS: 10 mL. SPECIMEN: Bone of the fifth left metatarsal and fifth left toe. TECHNICAL NOTE DRAINS: None. PACKIN.5-inch plain packing. ASSISTANTS: Dr. Timothy Hernandez and Dr. Chilango Arriola. ANESTHESIA: LMAC. PREOPERATIVE NOTE: The patient was seen in preop, discussed the procedure in detail including risks and complications discussed with the patient. We will perform incision and drainage with bone biopsy of the fifth metatarsal that we may need to amputate part of the fifth metatarsal and the fifth left toe depending on involvement of the fifth left toe. The patient understood this. Discussed with the patient advantages and disadvantages of the procedure, potential risks and complications including overcorrection, under correction, reoccurrence, potential need for further amputation, nonhealing of the wound, and loss of limb. The patient understood and we proceeded with surgical intervention. PROCEDURE IN DETAIL: The patient was brought to the operating room and placed on the operating table in supine position, anesthesia administered per Anesthesia Department. Local infiltration of 8 mL of 0.5% Marcaine plain was utilized for local block. The left foot was prepped and draped in usual aseptic manner. An ulceration was noted at the fifth left MPJ with purulent drainage noted. A [place] elevator was inserted and the ulceration was noted to track proximally approximately 4 cm. This was linearly incised down to bone with a 15 blade. The [place] elevator was also noted to follow a track distally along with fifth left toe. The fifth metatarsal head was noted to be fragmented and soft with the fifth metatarsal head eroded and fragmented within the soft tissue with purulent drainage noted. At this time, the incision was made due to purulent drainage and also erosive changes of the proximal phalanx also noted of the toe to perform resection of the partial fifth metatarsal distal aspect along with amputation of the fifth left toe. A sagittal saw was utilized to resect the [place], [place] OPERATIVE NOTE NAME: KARTHIKEYAN MIDDLETON UNIT #: [id number] ROOM: 528 DOCTOR: FILIPE RUBI DPM BIRTHDATE: [birth year] distal aspect of the fifth left metatarsal. Next, the toe was amputated utilizing 15 blade with 2 semi-elliptical incisions. All necrotic nonviable tissue was excised. The purulent drainage was removed from the wound which was noted to be approximately 2 mL. All nonviable tissue was excised. The remaining tissue was noted to be viable. Healthy bleeding tissue with no further signs of necrosis. The area was copiously flushed with pulse power irrigation with sterile saline. Next, primary closure was performed of the majority of the incision to reapproximate the site approximately 95% proximal to distal. This was achieved with vertical mattress stitching and the incision was noted to be well coapted and the distal incision still had mild gapping noted which was then packed with 0.5-inch plain packing. The intraoperative cultures of tissue were sent for gram stain, aerobic, anaerobic, acid fast and fungal cultures along with separate cultures of the bone of the fifth metatarsal head. Remaining bone was sent to pathology. Next, a sterile compressive dressing consisting of Xeroform wet-to-dry dressing with 4 x 4s, ABD, Kerlix and Emiliano bandage was applied. The patient tolerated the procedures and anesthesia well and left the OR with vital signs stable and neurovascular status intact. Estimated blood loss was approximately 10 mL during the procedure. The patient will return to the nursing unit and resume previous orders, antibiotics per Infectious Disease. Orders were written for no weightbearing, bedside commode, to utilize walker, surgical shoe, elevate the left foot, apply ice behind the left knee this evening 30 minutes intervals. The patient will be seen postoperative by Dr. Milton tomorrow. FILIPE RUBI DPM CM:OPRECORD:OPERATIVE NOTE 1640 1150 FILIPE RUBI DPM 11/06/17 1149 interface
--- NOTE | ~2017-11-01 | O ---
[place], [place] OPERATIVE NOTE NAME: [facility] MID[id number] UN[facility] #: [id number] ROOM: 528 DOCTOR: DAVIE BARKLEY MD BIRTHDATE: [birth year] DOS: 11/08/2017 GASTROENDOSCOPIC REPORT This is a 52-year-old patient who presented with multiple medical problems, among which has been her epigastric distress, abdominal pain, fullness. INDICATIONS: The patient with known history of diabetes mellitus and complications of sequelae, diabetes including diabetic retinopathy, diabetic neuropathy, diabetic foot ulcer, diabetic nephropathy, dialysis dependence as well as hypercapnia. PROCEDURE: Today's procedure part of investigation is panendoscopy plus biopsy. PREMEDICATION: Propofol. SCOPE: Olympus forward-viewing gastroscope Q10 video. REPORT: After putting the patient in left lateral position and application of lubricant to the scope, the scope was introduced. Thereafter, under direct visualization, advanced through the length of esophagus without difficulty. Gastric pouch was entered. Gastritis and retained food in the gastric pouch, evidence of diabetic gastroparesis noticed. Photographed, biopsied. Duodenal patency was assured. The patient was gradually extubated, tolerated the procedure well. IMPRESSION: Gastroparesis and gastritis. PLAN AND DISCUSSION: PPI on board including Protonix 40 mg daily, addition of Reglan 5 mg b.i.d. to enhance gastric motility and clinical reassessment. I thank you very much indeed for your kind referral. DAVIE BARKLEY MD CM:OPRECORD:OPERATIVE NOTE 1758 01 DAVIE BARKLEY MD 11/08/171900 interface
--- NOTE | ~2017-11-01 | PR ---
[place], [place] PROGRESS NOTE NAME: KARTHIKEYAN MIDDLETON [facility] #: [id number] UNIT #: [id number] ROOM: 528 DOCTOR: BING VÁSQUEZ DPM BIRTHDATE: [birth year] DOS: 11/11/2017 SUBJECTIVE: The patient is seen for followup of bilateral foot wounds. She has no complaints in regards to either of her feet. OBJECTIVE: Neurovascular status is unchanged. Wound VAC is in place in the left foot and there is no surrounding erythema. No localized edema, no fluctuance. Right foot has an ulcerated area in the heel with no gross signs of infection. Overall, area is progressing bilaterally at this time. ASSESSMENT: Status post surgery left foot, fifth ray resection; ulceration, right heel. PLAN: Evaluation and management. Continue with local wound care. Continue offloading appropriately. Continue with the current treatment plan. We will reevaluate tomorrow if still in house. BING VÁSQUEZ DPM CM:PNTRANS 1220 2349 BING VÁSQUEZ DPM 11/11/17 2348 interface
--- NOTE | ~2017-11-01 | CON ---
[place], [place] REPORT OF CONSULTATION NAME: KARTHIKEYAN MIDDLETON [facility] #: [id number] UNIT #: [id number] ROOM: 528 DOCTOR: FILIPE RUBI DPM BIRTHDATE: [birth year] DOS: 11/05/2017 HISTORY OF PRESENT ILLNESS: The patient presents as a 52-year-old female with chief complaint of infected ulcer to the left foot, which has been evident for approximately 2 months. The patient has had previous treatment performed by Dr. Prakash at the senior care. PAST MEDICAL HISTORY: CHF, chronic anxiety, chronic pain syndrome, chronic ulceration, chronic kidney disease stage 4 requiring chronic dialysis, COPD, chronic diabetes, end-stage renal disease, fluid overload, hyperlipidemia, hypertension, hyponatremia, normocytic anemia, peripheral neuropathy, permanent central venous catheter in place, protein calorie malnutrition, supplemental oxygen dependence. PAST SURGICAL HISTORY: History of multiple foot surgeries, delivery, appendectomy. SOCIAL HISTORY: History of 4 cigarettes per day x 17 years. Denies illicit drugs or alcohol. FAMILY HISTORY: Father at age 73 of pancreatic cancer. Mother reportedly in good health at age 74. ALLERGIES: TO BIAXIN, IODINE. Uncoated allergies to SEAFOOD. LOWER EXTREMITY EXAMINATION: Pedal pulses diminished bilateral, decreased hair growth bilateral. Decreased epicritic sensations. There is an ulceration lateral aspect fifth MPJ, is full thickness to and through subcutaneous tissue level. There is serous drainage, foul odor emanating from the wound consistent with possible underlying abscess with chronic osteomyelitis. There is an ulceration posterior aspect of the right heel, is full thickness with no signs of fluctuance or purulence. No signs of infection to the right heel ulceration. IMAGING: Results of the left foot MRI revealed ulceration on the lateral aspect of the forefoot with evidence of cellulitis, soft tissue swelling with abscess on the dorsal lateral aspect fifth digit measuring 1.8 cm with acute osteomyelitis and osseous destruction of the distal fifth metatarsal. ASSESSMENT: Osteomyelitis, distal fifth left metatarsal with abscess at the fifth left metatarsophalangeal joint. PLAN: Evaluation and management discussed with the patient needs to proceed with surgical intervention including incision and drainage with debridement and bone biopsy. After reviewing the MRI, it was decided that due to the findings of the abscess that the surgery be performed later today. The surgery will be scheduled later today due to signs of the abscess, IV antibiotics per infectious disease. The patient will be scheduled later today for the surgical intervention. We will still order arterial Dopplers for postoperative healing with possible vascular consultation for postoperative healing and possible further surgical intervention postoperatively, but at this time due to the acute [place], [place] REPORT OF CONSULTATION NAME: KARTHIKEYAN MIDDLETON UNIT #: [id number] ROOM: 528 DOCTOR: FILIPE RUBI DPM BIRTHDATE: [birth year] abscess, the surgery will need to proceed regardless. FILIPE RUBI DPM CM:CONSTR:REPORT OF CONSULTATION 1155 11/06/17 0046 interface
--- NOTE | ~2017-11-01 | CON ---
[place], [place] REPORT OF CONSULTATION NAME: KARTHIKEYAN MIDDLETON UNIT #: [id number] ROOM: 528 DOCTOR: DAVIE BARKLEY MD BIRTHDATE: [birth year] DOS: 11/08/2017 HISTORY OF PRESENT ILLNESS: The patient is a 52-year-old patient who presented for multiple issues among which have been respiratory insufficiency, CO2 retention, epigastric distress, foot ulcerations, undergoing investigation. PAST MEDICAL HISTORY: Associated diabetes mellitus, obesity, respiratory insufficiency, renal failure, dialysis dependency, peripheral neuropathy, diabetic nephropathy, hypertension, nicotine dependency. SOCIAL HISTORY: Smoker. Nonalcohol consumer. PAST SURGICAL HISTORY: MediPort catheters and C-sections. FAMILY HISTORY: Noncontributory. MEDICATIONS: List has been reviewed. ALLERGIES: IODINE, BIAXIN. REVIEW OF SYSTEMS: HEENT: Denies double vision and blurred vision. RESPIRATORY: Admits to shortness of breath. CARDIOVASCULAR: No chest pain. DIGESTIVE SYSTEM: Epigastric pain and dyspepsia. PHYSICAL EXAMINATION: VITAL SIGNS: Stable. HEENT: Head normocephalic, nontraumatic. Mouth and buccal mucosa benign. NECK: Supple. No thyromegaly. No cervical lymphadenopathy. CHEST: Symmetric anatomy, COPD pattern. Scattered rhonchi. HEART: Normal sinus rhythm. No gallop. No murmur. ABDOMEN: Obese, soft. No hepato-organomegaly. Bowel sounds present. No pulsatile mass. EXTREMITIES: No cyanosis. No pedal edema. Foot ulcers are being addressed. PLAN AND DISCUSSION: As far as the dyspepsia is concerned, we are going to endoscopically assess her. As far as her anemia, it could be multifactorial in addition to renal. As far as the ulcerations and Pulmonary Medicine is concerned, multidisciplinary is in consult. I will proceed with endoscopy of upper GI tract to rule out peptic ulcer disease on board as contribution to anemia. Other adjunctive diagnoses are as outlined in paragraphs, past medical and surgical history. Medications reviewed. Records reviewed. Thank you very much indeed. [place], [place] REPORT OF CONSULTATION NAME: KARTHIKEYAN MIDDLETON UNIT #: [id number] ROOM: 528 DOCTOR: DAVIE BARKLEY MD BIRTHDATE: [birth year] DAVIE BARKLEY MD CM:CONSTR:REPORT OF CONSULTATION 1745 11/09/17 0448 interface
--- NOTE | ~2017-11-01 | PR ---
[place], [place] PROGRESS NOTE NAME: KARTHIKEYAN MIDDLETON [facility] #: [id number] UNIT #: [id number] ROOM: 528 DOCTOR: FILIEP RUBI DPM BIRTHDATE: [birth year] DOS: SUBJECTIVE: The patient was seen for followup of incision and drainage of abscess with post-amputation of fifth left toe and partial fifth left metatarsal. The patient is still having discomfort at this time. OBJECTIVE: There is erythema to the lateral left foot still noted. There is maceration, serous drainage at the surgical site noted. Small amount of serous drainage noted upon removal of the packing with faint foul odor still noted. Results of the culture consistent with E. coli. Pathology is still pending. ASSESSMENT: Osteomyelitis post abscess, left foot. PLAN: Ordered wound VAC due to the continued serous drainage and maceration along the incision to prevent additional abscess formation and to granulate the surgical site incision. Continue antibiotics per Infectious Disease. Discussed the case with Internal Medicine. We will keep the patient at this time until early next week due to the erythema and the appearance of the wound to prevent reoccurrence of abscess. Wound VAC was ordered at 125 mmHg continuous, change every 3 days. FILIPE RUBI DPM CM:PNLISETH [id number] FILIPE RUBI DPM 11/07/17 2353 interface
--- NOTE | ~2017-11-01 | PR ---
[place], [place] PROGRESS NOTE NAME: KARTHIKEYAN MIDDLETON [facility] #: [id number] UNIT #: [id number] ROOM: 528 DOCTOR: BING VÁSQUEZ DPM BIRTHDATE: [birth year] DOS: 11/08/2017 SUBJECTIVE: This patient is seen status post fifth metatarsal resection on the left foot. The patient states she is doing well. She got a wound VAC placed yesterday. She has no complaints in regards to her foot. OBJECTIVE: EXTREMITIES: Wound VAC is in place. There is minimal surrounding edema and erythema around the wound. DP pedal pulses palpable. Mild drainage coming from the wound VAC. Overall, the foot is improved from yesterday since wound VAC application. ASSESSMENT: Status post surgery, left foot; diabetes mellitus. PLAN: Continue with wound VAC per protocol. Continue to try to elevate her foot as much as possible, continue to follow while she is in the hospital. BING VÁSQUEZ DPM CM:PNTRANS [id number] BING VÁSQUEZ DPM 11/08/17 2319 interface
[2017-11-01 18:09] LABS: BASO # 0.1 10*3/uL (0.0-0.1); BASO % 0.5 % (0.0-1.0); EOS # 0.1 10*3/uL (0.0-0.4); EOS % 0.5 % (1.0-4.0); HEMATOCRIT 35.3 % (37.0-47.0); HEMOGLOBIN 10.5 g/dl (12.0-16.0); LYMPH # 0.7 10*3/uL (1.3-4.4); LYMPH % 6.1 % (27.0-41.0); MEAN CELL VOLUME 93.1 fl (81.0-99.0); MEAN CORPUSCULAR HGB 27.7 pg (27.0-31.0); MEAN CORPUSCULAR HGB CONC 29.7 g/dl (33.0-37.0); MEAN PLATELET VOLUME 10.4 fl (9.6-12.3); MONO # 0.7 10*3/uL (0.1-1.0); MONO % 5.9 % (3.0-9.0); NEUT # 9.6 10*3/uL (2.3-7.9); NEUT % 86.5 % (47.0-73.0); PLATELET COUNT AUTOMATED 298 10*3/uL (130-400); RED BLOOD COUNT 3.79 10*6/uL (4.10-5.10); RED CELL DISTRI WIDTH 16.7 % (0-14.5); WHITE BLOOD COUNT 11.1 10*3/uL (4.8-10.8)
[2017-11-01 18:26] LABS: ALBUMIN 3.4 gm/dl (3.1-4.5); ALKALINE PHOSPHATASE 205 U/L (45-117); BUN 21 mg/dl (7-24); CHLORIDE 99 mmol/L (98-107); CREATININE 4.02 mg/dL (0.55-1.02); LIPASE 98 U/L (73-393); POTASSIUM 4.7 mmol/L (3.5-5.1); SGOT/AST 18 IU/L (3-35); SGPT/ALT 22 U/L (12-78); SODIUM 134 mmol/L (136-145); TOTAL PROTEIN 9.8 gm/dL (6.4-8.2)
[2017-11-01 18:30] LABS: TROPONIN I < 0.015 ng/ml (<0.045)
[2017-11-02] VITALS: BP 142/70
[2017-11-02 07:04] LABS: BASO % 0.4 % (0.0-1.0); EOS % 0.4 % (1.0-4.0); HEMATOCRIT 33.2 % (37.0-47.0); HEMOGLOBIN 9.9 g/dl (12.0-16.0); LYMPH # 1.3 10*3/uL (1.3-4.4); MEAN CORPUSCULAR HGB 27.7 pg (27.0-31.0); MEAN CORPUSCULAR HGB CONC 29.8 g/dl (33.0-37.0); MEAN PLATELET VOLUME 10.8 fl (9.6-12.3); MONO # 0.9 10*3/uL (0.1-1.0); NEUT # 7.5 10*3/uL (2.3-7.9); NEUT % 76.8 % (47.0-73.0); PLATELET COUNT AUTOMATED 313 10*3/uL (130-400); RED BLOOD COUNT 3.57 10*6/uL (4.10-5.10); RED CELL DISTRI WIDTH 16.4 % (0-14.5); WHITE BLOOD COUNT 9.8 10*3/uL (4.8-10.8)
[2017-11-02 07:43] LABS: POTASSIUM 4.3 mmol/L (3.5-5.1)
[2017-11-02 07:48] LABS: CREATININE 4.84 mg/dL (0.55-1.02); PHOSPHOROUS 4.6 mg/dL (2.5-4.9)
[2017-11-02 08:00] VITALS: BP 170/74
[2017-11-02 12:00] VITALS: BP 147/72
[2017-11-02 16:00] VITALS: BP 155/65
[2017-11-02 20:00] VITALS: BP 170/68
[2017-11-03] VITALS: BP 131/61; BP 175/82
[2017-11-03 00:30] VITALS: BP 146/72
[2017-11-03 06:38] LABS: BASO # 0.1 10*3/uL (0.0-0.1); BASO % 0.5 % (0.0-1.0); EOS # 0.2 10*3/uL (0.0-0.4); EOS % 1.6 % (1.0-4.0); HEMATOCRIT 31.6 % (37.0-47.0); HEMOGLOBIN 9.2 g/dl (12.0-16.0); LYMPH # 1.3 10*3/uL (1.3-4.4); LYMPH % 11.8 % (27.0-41.0); MEAN CELL VOLUME 95.2 fl (81.0-99.0); MEAN CORPUSCULAR HGB 27.7 pg (27.0-31.0); MEAN CORPUSCULAR HGB CONC 29.1 g/dl (33.0-37.0); MEAN PLATELET VOLUME 10.4 fl (9.6-12.3); MONO # 1.2 10*3/uL (0.1-1.0); MONO % 11.2 % (3.0-9.0); NUCLEATED RED BLOOD CELL 0.2 % (0.0-0.0); PLATELET COUNT AUTOMATED 291 10*3/uL (130-400); RED BLOOD COUNT 3.32 10*6/uL (4.10-5.10); RED CELL DISTRI WIDTH 16.9 % (0-14.5); WHITE BLOOD COUNT 10.8 10*3/uL (4.8-10.8)
[2017-11-03 07:12] LABS: POTASSIUM 4.6 mmol/L (3.5-5.1)
[2017-11-03 08:00] VITALS: BP 125/88
[2017-11-03 12:00] VITALS: BP 144/58
[2017-11-03 16:00] VITALS: BP 135/56
[2017-11-03 20:00] VITALS: BP 170/90; BP 172/98
[2017-11-04] VITALS: BP 129/50
[2017-11-04] MEDS ORDERED: BRIMONIDINE TAR10 ML OU (03:08)
[2017-11-04] MEDS ORDERED: LEVEMIR FL100 UNIT/1 SC (03:11)
[2017-11-04] MEDS ORDERED: ONDANSETRON ODT8 MG PO (03:15)
[2017-11-04] MEDS ORDERED: ROPINIROLE HYD0.5 MG PO (03:16)
[2017-11-04] MEDS ORDERED: SANTYL30 GM T (03:17)
[2017-11-04] MEDS ORDERED: TIMOLOL MALEATE10 M1 OU (03:18)
[2017-11-04] MEDS ORDERED: TYLENOL325 M2 PO (03:24)
[2017-11-04] MEDS ORDERED: SERTRALINE HYDR50 MG PO (03:26)
[2017-11-04 06:28] LABS: BASO # 0.1 10*3/uL (0.0-0.1); BASO % 0.5 % (0.0-1.0); EOS # 0.2 10*3/uL (0.0-0.4); EOS % 2.5 % (1.0-4.0); HEMATOCRIT 33.4 % (37.0-47.0); HEMOGLOBIN 9.6 g/dl (12.0-16.0); LYMPH # 1.1 10*3/uL (1.3-4.4); MEAN CORPUSCULAR HGB 27.6 pg (27.0-31.0); MEAN CORPUSCULAR HGB CONC 28.7 g/dl (33.0-37.0); MEAN PLATELET VOLUME 10.4 fl (9.6-12.3); MONO # 1.1 10*3/uL (0.1-1.0); NEUT # 6.8 10*3/uL (2.3-7.9); NEUT % 72.4 % (47.0-73.0); NUCLEATED RED BLOOD CELL 0.1 10*3/uL (0.0-0.0); NUCLEATED RED BLOOD CELL 0.5 % (0.0-0.0); PLATELET COUNT AUTOMATED 304 10*3/uL (130-400); RED BLOOD COUNT 3.48 10*6/uL (4.10-5.10); RED CELL DISTRI WIDTH 17.2 % (0-14.5); WHITE BLOOD COUNT 9.4 10*3/uL (4.8-10.8)
[2017-11-04 06:36] LABS: CREATININE 6.95 mg/dL (0.55-1.02)
[2017-11-04 08:00] VITALS: BP 145/66
[2017-11-04 12:00] VITALS: BP 201/101
[2017-11-04 16:00] VITALS: BP 135/64
[2017-11-04 20:00] VITALS: BP 151/65
[2017-11-05] VITALS (9 sets, daily range): BP systolic 105–153; BP diastolic 49–77
[2017-11-05 07:09] LABS: HEPATITIS B SURFACE AG Negative (Negative); HEPATITIS C VIRUS ANTIBODY 0.2 s/co (0.0-0.9)
[2017-11-05 11:56] LABS: BASO # 0.1 10*3/uL (0.0-0.1); BASO % 0.5 % (0.0-1.0); EOS # 0.3 10*3/uL (0.0-0.4); EOS % 2.3 % (1.0-4.0); HEMATOCRIT 32.8 % (37.0-47.0); HEMOGLOBIN 9.9 g/dl (12.0-16.0); LYMPH % 8.7 % (27.0-41.0); MEAN CELL VOLUME 93.2 fl (81.0-99.0); MEAN CORPUSCULAR HGB 28.1 pg (27.0-31.0); MEAN CORPUSCULAR HGB CONC 30.2 g/dl (33.0-37.0); MEAN PLATELET VOLUME 9.8 fl (9.6-12.3); MONO # 1.3 10*3/uL (0.1-1.0); MONO % 11.3 % (3.0-9.0); NEUT # 8.5 10*3/uL (2.3-7.9); NEUT % 76.6 % (47.0-73.0); NUCLEATED RED BLOOD CELL 0.2 % (0.0-0.0); PLATELET COUNT AUTOMATED 294 10*3/uL (130-400); RED BLOOD COUNT 3.52 10*6/uL (4.10-5.10); WHITE BLOOD COUNT 11.1 10*3/uL (4.8-10.8)
[2017-11-05 12:15] LABS: CREATININE 5.29 mg/dL (0.55-1.02); POTASSIUM 4.8 mmol/L (3.5-5.1)
[2017-11-06] VITALS: BP 158/67
[2017-11-06 06:44] LABS: BASO % 0.3 % (0.0-1.0); EOS # 0.2 10*3/uL (0.0-0.4); HEMATOCRIT 30.6 % (37.0-47.0); HEMOGLOBIN 9.1 g/dl (12.0-16.0); LYMPH % 8.1 % (27.0-41.0); MEAN CELL VOLUME 93.3 fl (81.0-99.0); MEAN CORPUSCULAR HGB 27.7 pg (27.0-31.0); MEAN CORPUSCULAR HGB CONC 29.7 g/dl (33.0-37.0); MEAN PLATELET VOLUME 10.4 fl (9.6-12.3); MONO # 1.3 10*3/uL (0.1-1.0); NEUT # 9.4 10*3/uL (2.3-7.9); NEUT % 77.8 % (47.0-73.0); PLATELET COUNT AUTOMATED 281 10*3/uL (130-400); RED BLOOD COUNT 3.28 10*6/uL (4.10-5.10); RED CELL DISTRI WIDTH 17.1 % (0-14.5); WHITE BLOOD COUNT 12.1 10*3/uL (4.8-10.8)
[2017-11-06 07:13] LABS: CREATININE 6.33 mg/dL (0.55-1.02); POTASSIUM 5.4 mmol/L (3.5-5.1)
[2017-11-06 08:00] VITALS: BP 122/60; BP 122/86
[2017-11-06 16:00] VITALS: BP 131/44
[2017-11-06 20:00] VITALS: BP 153/69
[2017-11-07] VITALS: BP 131/70
[2017-11-07 06:41] LABS: BASO % 0.3 % (0.0-1.0); EOS # 0.2 10*3/uL (0.0-0.4); EOS % 2.5 % (1.0-4.0); HEMATOCRIT 30.3 % (37.0-47.0); HEMOGLOBIN 8.9 g/dl (12.0-16.0); LYMPH # 0.9 10*3/uL (1.3-4.4); LYMPH % 9.6 % (27.0-41.0); MEAN CELL VOLUME 95.9 fl (81.0-99.0); MEAN CORPUSCULAR HGB 28.2 pg (27.0-31.0); MEAN CORPUSCULAR HGB CONC 29.4 g/dl (33.0-37.0); MEAN PLATELET VOLUME 10.2 fl (9.6-12.3); MONO # 1.2 10*3/uL (0.1-1.0); MONO % 13.2 % (3.0-9.0); NEUT # 6.8 10*3/uL (2.3-7.9); NEUT % 73.5 % (47.0-73.0); PLATELET COUNT AUTOMATED 255 10*3/uL (130-400); RED BLOOD COUNT 3.16 10*6/uL (4.10-5.10); RED CELL DISTRI WIDTH 17.5 % (0-14.5); WHITE BLOOD COUNT 9.3 10*3/uL (4.8-10.8)
[2017-11-07 06:52] LABS: ALBUMIN 2.9 gm/dl (3.1-4.5); CREATININE 4.87 mg/dL (0.55-1.02); PHOSPHOROUS 3.8 mg/dL (2.5-4.9)
[2017-11-07 07:15] LABS: POTASSIUM 4.2 mmol/L (3.5-5.1)
[2017-11-07 08:00] VITALS: BP 105/73
[2017-11-07 12:00] VITALS: BP 114/51
[2017-11-07 13:04] LABS: ACID FAST SPEC PROCESSING Tissue Grinding (.)
[2017-11-07 16:00] VITALS: BP 110/51
[2017-11-07 20:00] VITALS: BP 154/87
[2017-11-07 23:00] VITALS: BP 149/70
[2017-11-08] VITALS: BP 149/70
[2017-11-08 06:50] LABS: BASO % 0.3 % (0.0-1.0); EOS # 0.3 10*3/uL (0.0-0.4); EOS % 2.9 % (1.0-4.0); HEMATOCRIT 27.8 % (37.0-47.0); HEMOGLOBIN 8.3 g/dl (12.0-16.0); LYMPH # 0.9 10*3/uL (1.3-4.4); LYMPH % 10.4 % (27.0-41.0); MEAN CELL VOLUME 95.5 fl (81.0-99.0); MEAN CORPUSCULAR HGB 28.5 pg (27.0-31.0); MEAN CORPUSCULAR HGB CONC 29.9 g/dl (33.0-37.0); MEAN PLATELET VOLUME 10.8 fl (9.6-12.3); MONO # 1.2 10*3/uL (0.1-1.0); MONO % 12.9 % (3.0-9.0); NEUT # 6.5 10*3/uL (2.3-7.9); NEUT % 72.8 % (47.0-73.0); PLATELET COUNT AUTOMATED 240 10*3/uL (130-400); RED BLOOD COUNT 2.91 10*6/uL (4.10-5.10); RED CELL DISTRI WIDTH 17.5 % (0-14.5); WHITE BLOOD COUNT 8.9 10*3/uL (4.8-10.8)
[2017-11-08 07:11] LABS: ALBUMIN 2.8 gm/dl (3.1-4.5); CREATININE 6.41 mg/dL (0.55-1.02); PHOSPHOROUS 4.4 mg/dL (2.5-4.9); POTASSIUM 5.1 mmol/L (3.5-5.1)
[2017-11-08 17:55] VITALS: BP 109/50
[2017-11-08 18:08] VITALS: BP 110/55
[2017-11-08 18:27] VITALS: BP 107/56
[2017-11-08 20:00] VITALS: BP 141/65
[2017-11-09] VITALS: BP 145/59
[2017-11-09 06:19] LABS: BASO % 0.5 % (0.0-1.0); EOS # 0.3 10*3/uL (0.0-0.4); EOS % 3.4 % (1.0-4.0); HEMATOCRIT 31.5 % (37.0-47.0); HEMOGLOBIN 9.4 g/dl (12.0-16.0); LYMPH # 0.9 10*3/uL (1.3-4.4); LYMPH % 10.8 % (27.0-41.0); MEAN CELL VOLUME 95.5 fl (81.0-99.0); MEAN CORPUSCULAR HGB 28.5 pg (27.0-31.0); MEAN CORPUSCULAR HGB CONC 29.8 g/dl (33.0-37.0); MEAN PLATELET VOLUME 10.6 fl (9.6-12.3); MONO # 0.9 10*3/uL (0.1-1.0); MONO % 11.1 % (3.0-9.0); NEUT # 6.2 10*3/uL (2.3-7.9); PLATELET COUNT AUTOMATED 260 10*3/uL (130-400); RED CELL DISTRI WIDTH 17.6 % (0-14.5); WHITE BLOOD COUNT 8.5 10*3/uL (4.8-10.8)
[2017-11-09 06:45] LABS: ALBUMIN 2.9 gm/dl (3.1-4.5); CREATININE 4.6 mg/dL (0.55-1.02); PHOSPHOROUS 3.4 mg/dL (2.5-4.9); POTASSIUM 4.2 mmol/L (3.5-5.1)
[2017-11-09 08:00] VITALS: BP 149/67
[2017-11-09 12:00] VITALS: BP 148/68
[2017-11-09 16:00] VITALS: BP 133/71
[2017-11-09 20:00] VITALS: BP 166/74
[2017-11-10] VITALS: BP 116/53
[2017-11-10 06:02] LABS: BASO % 0.4 % (0.0-1.0); EOS # 0.4 10*3/uL (0.0-0.4); EOS % 4.6 % (1.0-4.0); HEMATOCRIT 27.4 % (37.0-47.0); LYMPH # 1.1 10*3/uL (1.3-4.4); LYMPH % 14.4 % (27.0-41.0); MEAN CELL VOLUME 94.2 fl (81.0-99.0); MEAN CORPUSCULAR HGB 27.5 pg (27.0-31.0); MEAN CORPUSCULAR HGB CONC 29.2 g/dl (33.0-37.0); MEAN PLATELET VOLUME 10.4 fl (9.6-12.3); MONO # 1.2 10*3/uL (0.1-1.0); MONO % 15.2 % (3.0-9.0); NEUT # 4.9 10*3/uL (2.3-7.9); NEUT % 64.4 % (47.0-73.0); PLATELET COUNT AUTOMATED 230 10*3/uL (130-400); RED BLOOD COUNT 2.91 10*6/uL (4.10-5.10); RED CELL DISTRI WIDTH 17.8 % (0-14.5); WHITE BLOOD COUNT 7.7 10*3/uL (4.8-10.8)
[2017-11-10 06:18] LABS: CREATININE 5.81 mg/dL (0.55-1.02); POTASSIUM 4.8 mmol/L (3.5-5.1)
[2017-11-10 08:00] VITALS: BP 140/68
[2017-11-10 12:00] VITALS: BP 110/77
[2017-11-10 16:00] VITALS: BP 154/70
[2017-11-10 20:00] VITALS: BP 131/61
[2017-11-11] VITALS: BP 140/71
[2017-11-11 06:54] LABS: BASO % 0.3 % (0.0-1.0); EOS # 0.3 10*3/uL (0.0-0.4); EOS % 4.1 % (1.0-4.0); HEMATOCRIT 27.4 % (37.0-47.0); HEMOGLOBIN 8.1 g/dl (12.0-16.0); LYMPH % 12.7 % (27.0-41.0); MEAN CELL VOLUME 93.8 fl (81.0-99.0); MEAN CORPUSCULAR HGB 27.7 pg (27.0-31.0); MEAN CORPUSCULAR HGB CONC 29.6 g/dl (33.0-37.0); MEAN PLATELET VOLUME 10.1 fl (9.6-12.3); MONO # 1.1 10*3/uL (0.1-1.0); MONO % 13.8 % (3.0-9.0); NEUT # 5.4 10*3/uL (2.3-7.9); NEUT % 68.1 % (47.0-73.0); PLATELET COUNT AUTOMATED 226 10*3/uL (130-400); RED BLOOD COUNT 2.92 10*6/uL (4.10-5.10); RED CELL DISTRI WIDTH 17.7 % (0-14.5)
[2017-11-11 07:28] LABS: ALBUMIN 2.8 gm/dl (3.1-4.5); CREATININE 7.16 mg/dL (0.55-1.02); TOTAL PROTEIN 8.5 gm/dL (6.4-8.2)
[2017-11-11 07:36] LABS: POTASSIUM 5.9 mmol/L (3.5-5.1)
[2017-11-11 08:00] VITALS: BP 122/86
[2017-11-11 16:00] VITALS: BP 140/64
[2017-11-11 20:00] VITALS: BP 115/65
[2017-11-12] VITALS: BP 162/67
[2017-11-12 07:31] LABS: CREATININE 4.95 mg/dL (0.55-1.02); PHOSPHOROUS 3.7 mg/dL (2.5-4.9)
[2017-11-12 07:32] LABS: POTASSIUM 4.4 mmol/L (3.5-5.1)
[2017-11-12 08:00] VITALS: BP 177/75
[2017-11-12 12:00] VITALS: BP 100/62
[2017-11-12] MEDS ORDERED: VANCOCIN1000 MG/25 IV (12:49)
[2017-11-12] MEDS ORDERED: PERCOCET 5-3251 EACH PO ×2 (12:49→12:50)
[2017-11-12] MEDS ORDERED: ATIVAN0.5 MG PO ×2 (12:49→12:50)
[2017-11-12] MEDS ORDERED: CEFAZOLIN2 GM/20 M1 IV (12:49)
[2017-11-12] MEDS ORDERED: METOCLOPRAMIDE10 M1 PO (12:49)
[2017-11-15] MEDS ORDERED: FLAGYL250 MG PO (16:32)
[2017-11-22 19:03] LABS: ORGANISM ID, MOLD Final report (.); RESULT 1 Final Identification (.)
[2017-12-06] MEDS ORDERED: CYMBALTA60 MG PO (03:09)
[2017-12-06] MEDS ORDERED: LEVOFLOXACIN500 MG PO (03:13)
[2017-12-06] MEDS ORDERED: METOCLOPRAMIDE H5 M1 PO (03:15)
[2017-12-06] MEDS ORDERED: VANCOMYCIN HYDRO1 GM IV (08:13)
[2017-12-06] MEDS ORDERED: CEFAZOLIN2 GM/10 ML IV (08:14)
[2017-12-06] MEDS ORDERED: ATIVAN1 MG PO (08:16)
[2017-12-18 11:02] LABS: ACID FAST CULTURE Negative (.)
== END 2017-11-12 14:10 | DRG 981 ==
LOC: ED 17:41 → 5E 19:39 → EDHOLD 19:39 → 5E 19:50
PROVIDERS: Family Medicine; Internal Medicine; Internal Medicine Nephrology; Nurse Practitioner Family; Podiatrist; Student in an Organized Health Care Education/Training Program
PROC: 5A1D70Z Performance of Urinary Filtration, Intermittent, Less than 6 Hours Per Day (ICD-10-PCS; principal; 2017-11-04)
PROC: 0Q9P0ZX Drainage of Left Metatarsal, Open Approach, Diagnostic (ICD-10-PCS; 2017-11-05)
PROC: 0Y6N0Z8 Detachment at Left Foot, Complete 5th Ray, Open Approach (ICD-10-PCS; 2017-11-05)
PROC: 5A1D70Z Performance of Urinary Filtration, Intermittent, Less than 6 Hours Per Day (ICD-10-PCS; 2017-11-06)
PROC: 5A1D70Z Performance of Urinary Filtration, Intermittent, Less than 6 Hours Per Day (ICD-10-PCS; 2017-11-08)
PROC: 0DB68ZX Excision of Stomach, Via Natural or Artificial Opening Endoscopic, Diagnostic (ICD-10-PCS; 2017-11-08)
PROC: 5A1D70Z Performance of Urinary Filtration, Intermittent, Less than 6 Hours Per Day (ICD-10-PCS; 2017-11-11)
DX: K29.70 Gastritis, unspecified, without bleeding (principal); N18.6 End stage renal disease; I13.2 Hypertensive heart and chronic kidney disease with heart failure and with stage 5 chronic kidney disease, or end stage renal disease; E11.22 Type 2 diabetes mellitus with diabetic chronic kidney disease; E11.42 Type 2 diabetes mellitus with diabetic polyneuropathy; E44.0 Moderate protein-calorie malnutrition; K31.84 Gastroparesis; E66.01 Morbid (severe) obesity due to excess calories; I50.32 Chronic diastolic (congestive) heart failure; L02.612 Cutaneous abscess of left foot; L97.419 Non-pressure chronic ulcer of right heel and midfoot with unspecified severity; M86.8X7 Other osteomyelitis, ankle and foot; L03.116 Cellulitis of left lower limb; E11.69 Type 2 diabetes mellitus with other specified complication; E11.43 Type 2 diabetes mellitus with diabetic autonomic (poly)neuropathy; E11.65 Type 2 diabetes mellitus with hyperglycemia; E11.51 Type 2 diabetes mellitus with diabetic peripheral angiopathy without gangrene; R11.2 Nausea with vomiting, unspecified; I16.0 Hypertensive urgency; G89.4 Chronic pain syndrome; J44.9 Chronic obstructive pulmonary disease, unspecified; F41.1 Generalized anxiety disorder; E78.5 Hyperlipidemia, unspecified; D72.819 Decreased white blood cell count, unspecified; D64.9 Anemia, unspecified; E83.41 Hypermagnesemia; E11.621 Type 2 diabetes mellitus with foot ulcer; B96.20 Unspecified Escherichia coli [E. coli] as the cause of diseases classified elsewhere; B95.7 Other staphylococcus as the cause of diseases classified elsewhere; L89.619 Pressure ulcer of right heel, unspecified stage; F17.210 Nicotine dependence, cigarettes, uncomplicated; Z91.041 Radiographic dye allergy status; Z99.2 Dependence on renal dialysis; Z88.8 Allergy status to other drugs, medicaments and biological substances; Z79.899 Other long term (current) drug therapy; Z79.4 Long term (current) use of insulin; Z87.01 Personal history of pneumonia (recurrent); Z87.440 Personal history of urinary (tract) infections; Z99.81 Dependence on supplemental oxygen; Z90.49 Acquired absence of other specified parts of digestive tract; Z98.51 Tubal ligation status; Z83.3 Family history of diabetes mellitus; Z80.0 Family history of malignant neoplasm of digestive organs; Z84.89 Family history of other specified conditions; Z71.6 Tobacco abuse counseling; Z22.322 Carrier or suspected carrier of Methicillin resistant Staphylococcus aureus; Z68.38 Body mass index [BMI] 38.0-38.9, adult

== ENCOUNTER 2017-11-13 01:33 | Emergency (ER) | payer MEDICARE, MEDICAID ==
[~2017-11-13] VITALS: Ht 167.6 cm; Wt 77.1 kg
[~2017-11-13 01:33] MED LIST changes: +BRIMONIDINE TAR10 ML OU; +CEFAZOLIN2 GM/20 M1 IV; +LEVEMIR FL100 UNIT/1 SC; +METOCLOPRAMIDE10 M1 PO; +ONDANSETRON ODT8 MG PO; +ROPINIROLE HYD0.5 MG PO; +SANTYL30 GM T; +SERTRALINE HYDR50 MG PO; +TIMOLOL MALEATE10 M1 OU; +TYLENOL325 M2 PO; +VANCOCIN1000 MG/25 IV
[2017-11-13 01:34] VITALS: BP 136/78
[2017-11-15] MEDS ORDERED: FLAGYL250 MG PO (16:32)
[2017-12-06] MEDS ORDERED: CYMBALTA60 MG PO (03:09)
[2017-12-06] MEDS ORDERED: LEVOFLOXACIN500 MG PO (03:13)
[2017-12-06] MEDS ORDERED: METOCLOPRAMIDE H5 M1 PO (03:15)
[2017-12-06] MEDS ORDERED: VANCOMYCIN HYDRO1 GM IV (08:13)
[2017-12-06] MEDS ORDERED: CEFAZOLIN2 GM/10 ML IV (08:14)
[2017-12-06] MEDS ORDERED: ATIVAN1 MG PO (08:16)
== END 2017-11-13 03:54 | disposition other institution (70) ==
LOC: ED 01:33
DX: M54.2 Cervicalgia (principal); M79.601 Pain in right arm; M25.511 Pain in right shoulder; M79.631 Pain in right forearm; M25.531 Pain in right wrist; G89.4 Chronic pain syndrome; I13.2 Hypertensive heart and chronic kidney disease with heart failure and with stage 5 chronic kidney disease, or end stage renal disease; E11.22 Type 2 diabetes mellitus with diabetic chronic kidney disease; N18.6 End stage renal disease; I50.9 Heart failure, unspecified; E78.5 Hyperlipidemia, unspecified; E11.621 Type 2 diabetes mellitus with foot ulcer; L97.508 Non-pressure chronic ulcer of other part of unspecified foot with other specified severity; J44.9 Chronic obstructive pulmonary disease, unspecified; E66.01 Morbid (severe) obesity due to excess calories; G62.9 Polyneuropathy, unspecified; F17.210 Nicotine dependence, cigarettes, uncomplicated; Z98.890 Other specified postprocedural states; Z68.39 Body mass index [BMI] 39.0-39.9, adult; Z99.2 Dependence on renal dialysis; Z98.51 Tubal ligation status; Z79.899 Other long term (current) drug therapy; Z79.4 Long term (current) use of insulin; Z88.1 Allergy status to other antibiotic agents; Z88.8 Allergy status to other drugs, medicaments and biological substances; Z91.013 Allergy to seafood; W19.XXXA Unspecified fall, initial encounter; Y93.89 Activity, other specified; Y92.89 Other specified places as the place of occurrence of the external cause; Y99.9 Unspecified external cause status

== ENCOUNTER 2017-11-19 12:15 | Inpatient (IN) | payer MEDICARE, MEDICAID ==
[~2017-11-19] VITALS: Ht 162.6 cm; Wt 108.6 kg
--- NOTE | ~2017-11-19 | PR ---
[place], [place] PROGRESS NOTE NAME: [facility]AN MIDDLETON [facility] [id number] UNIT #: [id number] ROOM: 410 DOCTOR: FIFI MUHAMMAD MD,RENÉ BIRTHDATE: [birth year] DOS: 11/23/2017 SUBJECTIVE: She has been still noted edema of the lower extremity, her shortness of breath has been improving. She had been given hemodialysis yesterday. Denies symptoms of coughing or chest pain. OBJECTIVE: VITAL SIGNS: Normal temperature, respiratory rate 18, heart rate 65, blood pressure 114/55. The pulse oxygen saturation on 5 liter nasal cannula 100% saturation. HEENT: Examination shows head was atraumatic. Eyes, nonicterus. NECK: Supple. CARDIOVASCULAR: S1, S2 audible. LUNGS: Decreased breath sounds without wheeze or crackles. ABDOMEN: Soft and obese. EXTREMITIES: With edema. IMPRESSION: End-stage renal failure, on hemodialysis; peripheral edema; fluid overload; congestive heart failure with improving shortness of breath; and other symptom. The patient has obstructive sleep apnea disorder. PLAN OF TREATMENT: Continue oxygen, bronchodilators as well as the use of the BiPAP. Continue management ____ by Nephrology services with hemodialysis. Other supportive plan of management to be continued. RENÉ CALIX MD CM:PNTRANS [phone] RENÉ MUHAMMAD MD 11/23/171951 interface
--- NOTE | ~2017-11-19 | PR ---
[place], [place] PROGRESS NOTE NAME: KARTHIKEYAN MIDDLETON [facility] #: [id number] UNIT #: [id number] ROOM: 410 DOCTOR: MAIA AGUILAR MD BIRTHDATE: [birth year] DOS: 11/22/2017 SUBJECTIVE: The patient is still complaining of some shortness of breath, although improving. OBJECTIVE: VITAL SIGNS: Blood pressure 140/70, heart rate 72 beats per minute, breathing 18 times a minute, temperature 98.2 degrees Fahrenheit. IMPRESSION: 1. Acute over chronic diastolic type congestive heart failure, improving with diuresis. 2. Chronic respiratory failure, treated with BiPAP. 3. End-stage kidney failure. The patient remains on hemodialysis. Extra fluid was removed. 4. Hyperkalemia, treated with hemodialysis and potassium restriction. 5. Benign essential hypertension, treated and controlled. The patient remains on Coreg. 6. Chronic nausea with diabetic gastroparesis, is doing well. The patient on Reglan. 7. Centrilobular emphysema with chronic shortness of breath, treated with bronchodilators. 8. Hypothyroidism, replaced with levothyroxine. 9. Left foot toe amputation and osteomyelitis. The patient is being treated with IV cefazolin and vancomycin, followed by Infectious Disease specialist and antibiotics are to be continued until 12/16/2017. MAIA AGUILAR MD CM:PNTRANS 1730 [id number] MAIA AGUILAR MD 11/22/177 interface
--- NOTE | ~2017-11-19 | PR ---
[place], [place] PROGRESS NOTE [id number] UNIT #: [id number] ROOM: 410 DOCTOR: FIFI MUHAMMAD MD,RENÉ BIRTHDATE: [birth year] DOS: 11/24/2017 SUBJECTIVE: She was comfortably sitting on the chair. Denies any symptoms of chest pain or wheezing. Denies any cough. She was complaining of mild shortness of breath at this time. She was due for hemodialysis for tomorrow for regular hemodialysis. There were no symptoms of fever or chills. OBJECTIVE: VITAL SIGNS: Normal temperature, respiratory rate 20, heart rate 62, blood pressure 102/50-100/53. Pulse ox saturation 5 liters nasal cannula 99% saturation. HEENT: Examination shows head was atraumatic. Eyes nonicterus. NECK: Supple. CARDIOVASCULAR: S1, S2 is audible. LUNGS: The patient was noted without any crackles, rhonchi, or wheezing. Breaths are noted mildly diminished bilaterally. ABDOMEN: Soft, nontender. EXTREMITIES: Still shows edema. IMPRESSION: 1. Congestive heart failure with fluid overload. The patient has end-stage renal failure. History of diastolic dysfunction. 2. The patient with bronchial asthma and obstructive sleep apnea disorder and chronic hypoxic respiratory failure. PLAN OF MANAGEMENT: The patient could be discharged to the nursing facility at the present time. Continue to restrict the fluid for the patient on hemodialysis. Bronchodilator use of the BiPAP and other medical management. RENÉ CALIX MD CM:PNTRANS 1134 [id number] RENÉ MUHAMMAD MD 11/24/17 1630 interface
--- NOTE | ~2017-11-19 | PR ---
[place], [place] PROGRESS NOTE NAME: [facility]KEYAN MIDDLETON [facility] #: [id number] UNIT #: [id number] ROOM: 410 DOCTOR: MAIA AGUILAR MD BIRTHDATE: [birth year] DOS: 11/23/2017 SUBJECTIVE: The patient is improving with her shortness of breath. PHYSICAL EXAMINATION: VITAL SIGNS: Blood pressure 114/55, heart rate 65 beats per minute, breathing 18 times per minute, temperature 98 degrees Fahrenheit. GENERAL APPEARANCE: The patient is alert and oriented x 3, in no visible distress. HEENT AND NECK: Exam within normal limits. CARDIOVASCULAR SYSTEM: Heart rate is regular in rate and rhythm. S1 and S2 normally audible. LUNGS: Decreased breath sounds all over. ABDOMEN: Soft, nontender. No obvious organomegaly. Bowel sounds are present. EXTREMITIES: Left foot toe amputations. IMPRESSION: 1. The patient with acute exacerbation of chronic obstructive pulmonary disease, being treated. 2. Acute over chronic diastolic type congestive heart failure, improving with treatment. Hopefully, we will be able to discharge her back to the longterm tomorrow. 3. Severe generalized anxiety disorder, being treated and controlled. 4. Chronic respiratory failure, treated with BiPAP. 5. End-stage kidney failure. The patient remains on hemodialysis. 6. Chronic hyperkalemia, being treated with hemodialysis and low potassium diet. 7. Benign essential hypertension, treated and controlled. 8. Chronic nausea with diabetic gastroparesis, being treated with Reglan. 9. Hypothyroidism, treated with levothyroxine. MAIA AGUILAR MD CM:PNTRANS 1507 [id number] MAIA AGUILAR MD 11/24/17 0011 interface
--- NOTE | ~2017-11-19 | EKG ---
[place], [place] ELECTROCARDIOGRAM REPORT NAME: KARTHIKEYAN MIDDLETON UNIT #: [id number] ROOM: DOCTOR: MELYSSA DRAFT REPORT BIRTHDATE: [birth year] [facility] Test Date: 2017-11-19 Test Time: 13:08:36 Pat Name: KARTHIKEYAN MIDDLETON Department: Room: Gender: F [employer] Director: 16 : 1965 Requested By: JASON WHITFIELD Order Number: [id number] Reading MD: Measurements Intervals [place] Rate: 59 P: 45 MS: 152 QRS: 4 QRSD: 95 T: 46 QT: 449 QTc: 445 Interpretive Statements Sinus rhythm Minimal ST elevation, inferior leads Baseline wander in lead(s) I,II,aVR,aVL No previous ECG available for comparison CM:EKGRPT:ELECTROCARDIOGRAM REPORT 1308 1010 JASON WHITFIELD EPIPHANY DRAFT REPORT JASON WHITFIELD
--- NOTE | ~2017-11-19 | PR ---
[place], [place] PROGRESS NOTE NAME: KARTHIKEYAN MIDDLETON [facility] #: [id number] UNIT #: [id number] ROOM: 410 DOCTOR: MAIA AGUILAR MD BIRTHDATE: [birth year] DOS: 11/20/2017 SUBJECTIVE: The patient is complaining of some shortness of breath this morning. Otherwise, no chest pains or any other complaints. OBJECTIVE: VITAL SIGNS: Blood pressure 127/60, heart rate of 58 beats per minute, breathing 14 times a minute, temperature 98.2 degrees Fahrenheit. GENERAL APPEARANCE: The patient is alert and oriented x 3, in no visible distress. HEENT AND NECK: Exam within normal limits. CARDIOVASCULAR SYSTEM: Heart rate is regular in rate and rhythm. S1 and S2 normally audible. LUNGS: Clear to auscultation. ABDOMEN: Obesity, soft, nontender. No obvious organomegaly. Bowel sounds are present. EXTREMITIES: Without significant cyanosis or edema. The patient has toe amputation of the left foot with stitches in place and an open area, being followed by Podiatry. IMPRESSION: 1. The patient with acute diastolic type congestive heart failure, being treated with diuresis and hemodialysis. The patient's breathing is improving gradually. 2. Advanced chronic obstructive pulmonary disease with chronic respiratory failure. Dr. Barr has been consulted to follow. 3. End-stage chronic kidney disease. The patient remains on hemodialysis. Extra fluid to be removed. 4. Hyperkalemia is improving. The patient is on hemodialysis. 5. Moderate protein calorie malnutrition. The patient is working with dietary. 6. Mixed hyperlipidemia, treated with Lipitor. 7. Benign essential hypertension, treated and controlled. The patient remains on Coreg. 8. Chronic pain syndrome. The patient is requesting Percocet, which is adequately controlling her pain symptoms. The patient is generally more functional with pain control. 9. Chronic nausea and diabetic gastroparesis, treated with Reglan, asymptomatic today. 10. Morbid obesity. The patient is working with dietary. BMI of 41. 11. Osteomyelitis of the left foot and ankle, being followed by Infectious Disease specialist and the patient to be kept on IV antibiotics according to their recommendation. 12. Chronic obstructive pulmonary disease with chronic respiratory failure. The patient remains on bronchodilators. 13. Hypothyroidism, treated with levothyroxine. 14. Major depression, recurrent, mild to moderate, treated with Zoloft, controlled. [place], [place] PROGRESS NOTE NAME: KARTHIKEYAN MIDDLETON UNIT #: [id number] ROOM: 410 DOCTOR: LAUREN BERNAL,MAIA Gould BIRTHDATE: [birth year] MAIA AGUILAR MD CM:PNLISETH [phone] MAIA AGUILAR MD 11/20/17 1750 interface
--- NOTE | ~2017-11-19 | PR ---
[place], [place] PROGRESS NOTE NAME: KARTHIKEYAN MIDDLETON [facility] #: [id number] UNIT #: [id number] ROOM: 410 DOCTOR: FIFI MUHAMMAD MDRENÉ BIRTHDATE: [birth year] DOS: 11/21/2017 The patient was independently seen and examined, [id number] encounter, history was confirmed. Physical examination performed. Labs were reviewed. Assessment and management was personally completed. SUBJECTIVE: She was still noted symptoms of shortness of breath, now resolved. She does have mild coughing without any sputum expectoration. Denies symptoms of chest pain. Still noted edema of lower extremities, was getting intravenous Bumex and also receiving hemodialysis. She has received the hemodialysis yesterday successfully. The patient was not noted any symptoms of abdominal pain, nausea, vomiting. Denies any diarrhea at the present time. The wound of the left foot, the patient has been currently taking care. Currently, has a bandage in place. Remaining systems were reviewed. They were noted all negative. OBJECTIVE: VITAL SIGNS: Normal temperature, respiratory rate 17, heart rate 61, blood pressure 150/67-160/56. The pulse ox saturation on 4 liters nasal cannula 97% saturation. HEENT: Moderate obesity. Head was atraumatic. Eyes nonicterus. NECK: Supple. CARDIOVASCULAR: S1, S2 audible. LUNGS: Decreased breaths in the lower portion of the lungs without any crackles. ABDOMEN: Soft, obese, nontender. EXTREMITIES: Shows edema. VISIBLE SKIN: No lesions or rashes. CENTRAL NERVOUS SYSTEM: General weakness, fatigue were noted. There were no gross focal deficit. MUSCULOSKELETAL: No deformity except previously, partial amputation of the toes of the feet. LABORATORY DATA: BMP that was done this morning, BUN 37, creatinine 5.34. Glucose 322. Sodium 141. Blood culture from the 24 of this month showed no bacterial growth, final culture results were pending. IMPRESSION: 1. The patient who has been currently noted congestive heart failure/fluid overload, diastolic dysfunction. The ultrasound of the chest was performed, shows small bilateral pleural fluid with interstitial edema still noted with the ultrasound assessment at the bedside bilaterally. 2. The patient with chronic severe morbid obesity. 3. End-stage renal failure, on hemodialysis. 4. Obstructive sleep apnea disorder. 5. Bronchial asthma, stable without evidence of acute exacerbation. 6. Hyperglycemia with history of type 2 diabetes mellitus. PLAN OF MANAGEMENT: Continue diuretic as well as BiPAP. Continuation of the [place], [place] PROGRESS NOTE NAME: KARTHIKEYAN MIDDLETON UNIT #: [id number] ROOM: 410 DOCTOR: FIFI MUHAMMAD MD,RENÉ BIRTHDATE: [birth year] hemodialysis ____ maximum free water removal. Reduce the current fluid overload/congestive heart failure. Other supportive therapy, plan of management continue as well. Usual treatment, other therapy, plan of care for the patient as well. Additional treatment changes will be done based on the progression of the illness. The BiPAP and the oxygen will be continued as previously ordered. RENÉ CALIX MD CM:PNTRANS [id number] RENÉ MUHAMMAD MD 11/21/17 2147 interface
--- NOTE | ~2017-11-19 | WRIGHTHP ---
[place], [place] PATIENT HISTORY AND PHYSICAL EXAM NAME: KARTHIKEYAN MIDDLETON [facility] #: [id number] UNIT #: [id number] ROOM: 410 DOCTOR: MAIA AGUILAR MD BIRTHDATE: [birth year] DOS: 11/19/2017 HISTORY OF PRESENT ILLNESS: The patient is a 52-year-old female with a past medical history of; 1. End-stage kidney disease, on hemodialysis. 2. Diabetic gastroparesis. 3. Uncontrolled type 2 diabetes mellitus with complications including diabetic nephropathy, peripheral vascular disease and diabetic peripheral polyneuropathy. 4. Benign essential hypertension. 5. Chronic diastolic type congestive heart failure. 6. Mixed hyperlipidemia. 7. Anemia of chronic disease and kidney failure. 8. Moderate protein-calorie malnutrition. 9. Chronic respiratory failure and chronic obstructive pulmonary disease with oxygen dependence. The patient uses BiPAP at night. 10. Obesity. 11. Nicotine smoke dependence. 12. Osteomyelitis involving the left ankle and foot. The patient presented to [facility] and she insisted on going to the Emergency Department and was found to be in acute congestive heart failure with vascular congestion. The patient has acute over chronic respiratory failure and acute over chronic diastolic type congestive heart failure. The patient was given one dose of IV Lasix in the Emergency Department and then transferred to a monitored bed for admission. After admission, the patient is complaining of increased shortness of breath, which is starting to improve. No dizziness or fainting episode. No other GI or urinary symptoms. The patient is requesting her Percocet for chronic back pains. REVIEW OF SYSTEMS: LUNGS: Increased shortness of breath. GASTROINTESTINAL: Chronic nausea, no vomiting, presently diarrhea or constipation. CARDIOVASCULAR SYSTEM: No chest pains or palpitations. FAMILY HISTORY: Noncontributory. SOCIAL HISTORY: The patient smokes cigarettes. Has previous history of cocaine and alcohol and drug dependence. HOME MEDICATIONS: Calcium, Coreg, Dulcolax, Pepcid, latanoprost eye drops, levothyroxine, Lyrica, insulin, vitamin D, DuoNebs, timolol eye drops, Zoloft, Percocet, lorazepam. PHYSICAL EXAMINATION: GENERAL: Alert and oriented x 3, morbidly obese. HEENT AND NECK: Extraocular movements are intact. Sclerae are anicteric. Oral mucosa is moist and clean. No obvious facial weakness. Neck is supple without any lymphadenopathy. No thyromegaly. No JVD. No carotid arterial bruits. LUNGS: Clear to auscultation. No wheezing. No rhonchi. [place], [place] PATIENT HISTORY AND PHYSICAL EXAM NAME[facility] MIDDLETON [facility] [id number] UNIT #: [id number] ROOM: 410 DOCTOR: MAIA AGUILAR MD BIRTHDATE: [birth year] CARDIOVASCULAR SYSTEM: Heart rate is regular in rate and rhythm. S1 and S2 normally audible. No significant murmur or any other abnormal cardiac sounds. ABDOMEN: Soft, nontender. No obvious organomegaly. Bowel sounds are present. No obvious herniation. EXTREMITIES: Without significant cyanosis or edema. Warm to touch. Left foot and ankle infection. CENTRAL NERVOUS SYSTEM: Alert and oriented x 3. Cranial nerves II-XII are intact. Speech is normal. The patient is able to move all extremities. Normal muscle strength. Deep tendon reflexes are equal on both sides. Plantars were downgoing. LABORATORY DATA: Chest x-ray showing vascular congestion. BUN and creatinine 44 and 6. Potassium elevated at 5.8. Lactic acid level is normal. No leukocytosis. Hemoglobin is 7.9, normal platelets. IMPRESSION: 1. The patient with acute diastolic type congestive heart failure to be treated with diuresis with IV Bumex and will use oxygen and nebulizer treatments and follow her closely. I am consulting her operational risk manager, Dr. Barr to see her and help with management. The patient kept on DuoNebs. 2. End-stage chronic kidney disease and failure with hemodialysis. I will consult Nephrology to follow her. 3. Hyperkalemia to be treated with hemodialysis and diuresis. 4. Major depression, recurrent, mild to moderate, treated with Zoloft. 5. Hypothyroidism, treated with levothyroxine. 6. Glaucoma, treated with latanoprost, brimonidine and timolol eyedrops. 7. Centrilobular emphysema, treated with bronchodilators and oxygen with chronic respiratory failure. 8. Osteomyelitis involving the left foot and ankle. I will reconsult Infectious Disease specialist to follow her. 9. Morbid obesity with BMI of 41, the patient to work with dietary. 10. Chronic nausea and diabetic gastroparesis to be treated with Reglan. 11. Chronic pain syndrome with chronic generalized pain and also lower back pains. I will continue Percocet for pain control. 12. Benign essential hypertension. The patient continued on Coreg. Blood pressures to be monitored and treated accordingly. 13. Mixed hyperlipidemia, to be followed and treated. 14. Moderate protein-calorie malnutrition. The patient is working with dietary. One hour spent on patient management. [place], [place] PATIENT HISTORY AND PHYSICAL EXAM NAME: [facility]KEYAN MIDDLETON [facility] [id number] UNIT #: [id number] ROOM: 410 DOCTOR: MAIA AGUILAR MD BIRTHDATE: [birth year] MAIA AGUILAR MD CM:HISPHYS:PATIENT HISTORY AND PHYSICAL EXAMINATION 19 50 MAIA AGUILAR MD 11/19/171849 interface
--- NOTE | ~2017-11-19 | CON ---
[place], [place] REPORT OF CONSULTATION NAME: KARTHIKEYAN MIDDLETON [facility] #: [id number] UNIT #: [id number] ROOM: 410 DOCTOR: NILA LONGO DO BIRTHDATE: [birth year] DOS: 11/20/2017 CONSULTATION REQUESTED BY: Dean Chin MD REASON FOR CONSULTATION: Congestive heart failure. HISTORY OF PRESENTING ILLNESS: The patient is a 52-year-old female who presents to [facility] for shortness of breath. She states that over the last 3-4 days, she feels like she has been not able to get air out resulting in abdominal pain and a fall. She admits to dizziness with ambulation, nausea and an episode of diarrhea where she was diagnosed with C. diff. She admits to recent antibiotic use of vancomycin and Cipro. Additionally, she admits to swollen legs and chills. She denies any headache, syncopal episodes, cough, chest pain, vomiting, further episodes of diarrhea, melena, hematochezia or hematemesis. She was given 1 dose of IV Bumex 1 mg in the ED. She has end-stage renal disease, on hemodialysis. She is due for dialysis today. REVIEW OF SYSTEMS: CONSTITUTIONAL SYMPTOMS: Admits to weakness and chills. Denies fever. She has fallen due to the weakness. EYES: She has an ecchymosis surrounding the right eye. No burning or tenderness. EAR, NOSE, THROAT SYMPTOMS: Denies sore throat, hoarseness, otalgia, postnasal drip or drainage. CARDIOVASCULAR: Denies chest pain or pain in the lower extremities. Admits to edema. GASTROINTESTINAL: Admits to 1 episode of diarrhea. Also, admits to nausea. Denies dysphagia, vomiting, hematemesis, melena or hematochezia. GENITOURINARY: No symptoms noted. End-stage renal disease, on dialysis. MUSCULOSKELETAL: No acute pain. VISIBLE SKIN: No lesions or rashes. CENTRAL NERVOUS SYSTEM: Admits to dizziness. No headache, diplopia, or syncopal episodes. PAST MEDICAL HISTORY: 1. End-stage kidney disease, on hemodialysis Saturday, Saturday, Saturday. 2. Chronic diastolic congestive heart failure. 3. Uncontrolled type 2 diabetes with diabetic nephropathy, peripheral vascular disease and diabetic peripheral polyneuropathy. 4. Essential hypertension. 5. Mixed hyperlipidemia. 6. Anemia of chronic disease. 7. Protein calorie malnutrition. 8. Chronic respiratory failure and chronic obstructive pulmonary disease with oxygen dependence. Uses BiPAP at night. 9. Gastroparesis. 10. Obesity. 11. History of tobacco abuse. 12. Osteomyelitis of the left ankle and foot. 13. Hyperkalemia. [place], [place] REPORT OF CONSULTATION NAME: KARTHIKEYAN MIDDLETON UNIT #: [id number] ROOM: [facility] DOCTOR: NILA LONGO DO BIRTHDATE: [birth year] 14. Hyponatremia. PAST SURGICAL HISTORY: and foot surgeries. FAMILY HISTORY: Her mother is alive and diagnosed with hypertension and diabetes. Her father is from pancreatic cancer. SOCIAL HISTORY: Started smoking at age 32, was a half pack per day smoker, quit 9 months ago. History of alcohol abuse. History of cocaine abuse. She is no longer using drugs or alcohol. MEDICATIONS: Include Ativan, Zoloft, Pepcid, Coreg, Bumex IV 1 mg daily. Also, Synthroid, Requip, Lyrica, latanoprost, insulin, Flagyl, Reglan, Percocet, atenolol and DuoNebs. DRUG ALLERGIES: BIAXIN, IODINE, AND FISH. PHYSICAL EXAMINATION: GENERAL APPEARANCE: Alert and oriented, morbidly obese. VITAL SIGNS: Temperature 97.7, heart rate 63, respirations 17, blood pressure 160/79, pulse ox 98% on 4 liters nasal cannula. HEENT: Ecchymosis surrounding the right eye. Eyes are nonicteric. NECK: Supple. CARDIOVASCULAR: S1, S2 audible. LUNGS: Clear to auscultation bilaterally. Adequate air exchange. ABDOMEN: Obese. Bowel sounds present. EXTREMITIES: No tenderness or guarding. VISIBLE SKIN: No acute lesions noted. CENTRAL NERVOUS SYSTEM: Cranial nerves 2-12 intact. No gross focal deficit. MUSCULOSKELETAL: Left foot and ankle are bandaged. LABORATORY DATA: CBC: White blood cells 8.5, hemoglobin 8, hematocrit 27.8, platelet count 232,000. CMP on admission, sodium 134, potassium 5.8, chloride 95, BUN 44, creatinine 5.93, AST 36, ALT 42, alkaline phosphatase 794, albumin 3.3. BMP today, sodium 132, potassium 5.4, chloride 95, BUN 49, creatinine 6.64, glucose 186. She is due for hemodialysis today. Review of patient's chest x-ray is consistent with congestive heart failure. IMPRESSION: 1. Acute on chronic diastolic heart failure. 2. Centrilobular emphysema. 3. End-stage chronic kidney disease, on hemodialysis. 4. Uncontrolled diabetes. 5. Hyperkalemia. 6. Major depression. 7. Hypothyroidism. 8. Glaucoma. 9. Osteomyelitis. 10. Morbid obesity. 11. Chronic nausea and diabetic gastroparesis. [place], [place] REPORT OF CONSULTATION NAME: KARTHIKEYAN MIDDLETON UNIT #: [id number] ROOM: 410 DOCTOR: NILA LONGO DO BIRTHDATE: [birth year] 12. Chronic pain syndrome. 13. Benign essential hypertension. 14. Mixed hyperlipidemia. 15. Moderate protein-calorie malnutrition. PLAN OF MANAGEMENT: The patient is due for hemodialysis today. This will help with the electrolyte abnormalities as well as the fluid overload. She is currently receiving Bumex 1 mg IV. She may continue to use bronchodilators as needed. Nephrology is following the patient for her hemodialysis. Infectious Disease doctor was consulted for the osteomyelitis. Further recommendations based on the patient's symptoms and disease progression. Nila Longo DO RENÉ CALIX MD CM:CONSTR:REPORT OF CONSULTATION 1138 11/20/17 1027 interface
--- NOTE | ~2017-11-19 | PR ---
[place], [place] PROGRESS NOTE NAME: KARTHIKEYAN MIDDLETON UNIT #: [id number] ROOM: 410 DOCTOR: FILIPE RUBI DPM BIRTHDATE: [birth year] DOS: 11/21/2017 ADDENDUM The patient was seen with the resident, Dr. Chilango Arriola. I agree with the resident's note. FILIPE RUBI DPM CM:PNTRANS [id number] FILIPE RUBI DPM 12/05/17 1608 interface
--- NOTE | ~2017-11-19 | PR ---
[place], [place] PROGRESS NOTE NAME: [facility] MIDDLETON [id number] UNIT #: [id number] ROOM: 410 DOCTOR: NILA MCINTOSH DO BIRTHDATE: [birth year] DOS: 11/22/2017 SUBJECTIVE: The patient was evaluated in dialysis today. She states that she is feeling okay. Denies any lightheadedness, chest pain, shortness of breath, abdominal pain, nausea, vomiting, diarrhea, hemoptysis, hematemesis or hematochezia. She was medicated overnight with Ativan and Percocet for complaints of anxiety and abdominal pain. Her left foot is currently bandaged. OBJECTIVE: VITAL SIGNS: Temperature 98.0, heart rate 57, respirations 18, blood pressure 116/57, pulse ox 98% on 4 liters nasal cannula. HEENT: Ecchymosis over her right eye. Eyes nonicteric. NECK: Supple. CARDIOVASCULAR: S1, S2 audible. LUNGS: Decreased breath sounds in lower lungs bilaterally. ABDOMEN: Obese, soft, nontender, nondistended. EXTREMITIES: Significant edema present. Left lower extremity bandaged. VISIBLE SKIN: No additional lesions or rashes noted. CENTRAL NERVOUS SYSTEM: Generalized weakness and fatigue. No gross focal deficit. MUSCULOSKELETAL: No gross deformity. Partial amputation of the toes previously. LABORATORY DATA: BMP today, sodium 130, potassium 5.6, chloride 93, CO2 of 25, BUN 59, creatinine 6.28, glucose 289. She has her dialysis today. Ultrasound performed at bedside yesterday did show bilateral pleural effusion. IMPRESSION: 1. Acute exacerbation of chronic diastolic heart failure. 2. Chronic severe morbid obesity. 3. End-stage renal failure, on dialysis. 4. Obstructive sleep apnea. 5. Bronchial asthma without acute exacerbation. 6. Hyperglycemia with type 2 diabetes. PLAN OF MANAGEMENT: Continue diuretic and BiPAP. Continue dialysis on scheduled days. Attempt maximum fluid removal. She is due for 4 liters removed today. Supportive management. Other therapy and plan of care adjusted with the patient's disease progression. Continue supplemental oxygen therapy. Nila Mcintosh DO [place], [place] PROGRESS NOTE NAME: KARTHIKEYAN MIDDLETON UNIT #: [id number] ROOM: 410 DOCTOR: NILA MCINTOSH DO BIRTHDATE: [birth year] RENÉ CALIX MD CM:MIRIAM [id number] NILA MCINTOSH DO 11/22/17 1517 interface
--- NOTE | ~2017-11-19 | PR ---
[place], [place] PROGRESS NOTE NAME: KARTHIKEYAN MIDDLETON UNIT #: [id number] ROOM: 410 DOCTOR: FILIPE RUBI DPM BIRTHDATE: [birth year] DOS: 11/21/2017 ADDENDUM SUBJECTIVE: The patient was seen with Dr. Arriola under my direct supervision. I agree with the above note and the patient will be seen tomorrow by Dr. Barahona. FILIPE RUBI DPM CM:MIRIAM [id number] FILIPE RUBI DPM 11/22/17 1023 interface
--- NOTE | ~2017-11-19 | CON ---
[place], [place] REPORT OF CONSULTATION NAME: KARTHIKEYAN MIDDLETON [facility] #: [id number] UNIT #: [id number] ROOM: 410 DOCTOR: FIFI MUHAMMAD MDRENÉ BIRTHDATE: [birth year] DOS: 11/20/2017 PULMONARY CONSULTATION EVALUATION AND MANAGEMENT CONSULTATION REQUESTED BY: Dean Chin MD REASON FOR CONSULTATION: For assessment of current shortness of breath. The patient was independently seen and examined in [id number] encounter. History was confirmed. Physical examination performed. The labs were reviewed. Assessment and management personally completed. Note done by the medical management specialist was approved as well. HISTORY OF PRESENT ILLNESS: The patient is a 52-year-old white female who has been currently noted long-term resident of [facility]. She developed increased symptoms of shortness recently and was sent to the Emergency Room. The patient insisted on going to the hospital. She had a chest x-ray done in the nursing facility, which noted evidence of small atelectasis, right lower lobe. The patient presented to the hospital Emergency as she has been noted with increased shortness of breath, also reporting increased symptoms of edema of the lower extremity, but she was also complaining of fatigue. Denies symptoms of chest pain, hemoptysis, fever or chills. She has been assessed in the Emergency Room, currently admitted to the hospital for further care. REVIEW OF SYSTEMS: As completed by the medical management specialist was approved as well. PAST MEDICAL HISTORY: 1. Known with a history of chronic hypoxic respiratory failure, use of oxygen 4 liter nasal cannula. 2. Uncomplicated acdnhygi-sn-vlimev persistent bronchial asthma. 3. End-stage renal failure, on hemodialysis. 4. Chronic moderate obesity. 5. Obstructive sleep apnea disorder, recently diagnosed and treated with the BiPAP. 6. Type 2 diabetes mellitus. 7. Chronic pain syndrome. 8. History of recreational drug use in the past. 9. Type 2 diabetes mellitus. 10. Previous history of pneumonia. 11. Past tobacco use. 12. History of restless leg syndrome. PAST SURGICAL HISTORY: 1. . 2. MediPort insertion acute temporary dialysis catheter insertion. 3. Partial amputation of the toe. SOCIAL HISTORY: The patient is not , lives at senior living, has not been noted history of alcohol use or illicit drug use. Tobacco use was noted as a pack of cigarettes a day since teenager and has discontinued tobacco use since [place], [place] REPORT OF CONSULTATION NAME: KARTHIKEYAN MIDDLETON [facility] #: [id number] UNIT #: [id number] ROOM: 410 DOCTOR: RENÉ TEJADA MD BIRTHDATE: 11/06/6306/2019. FAMILY HISTORY: Noted for father of complication related pancreatitis. History about mother was not known to the patient. MEDICATIONS: Current medications administered noted use of IV Bumex, Sertraline, famotidine, Coreg.5, calcium acetate, levothyroxine, Requip, latanoprost, Reglan, DuoNeb, lorazepam, Lyrica, metronidazole and other p.r.n. medications. All said in past history of the patient. Recent assessment for the patient is C. diff colitis. PHYSICAL EXAMINATION: GENERAL: The patient is a 52-year-old female who has been currently noted resting on the bed without acute distress. Height of 5 feet 4 inches, weight of 239 pounds, BMI of 41. VITAL SIGNS: For the patient which were recorded show normal temperature, 1417/60-58 blood pressure 160/79 this morning recorded. Intake for the patient recorded 180, output was not recorded. Pulse ox saturation 4 liters 98% saturation. HEENT: Head was atraumatic. Eye nonicterus. NECK: Supple. CARDIOVASCULAR: S1, S2 audible. LUNGS: Noted generally decreased breath sounds noted in the lungs bilaterally. ABDOMEN: Soft and obese. EXTREMITIES: Shows severe tense edema in bilateral lower extremities. SKIN: Visible skin, no lesions or rashes. CENTRAL NERVOUS SYSTEM: Cranial nerves 2-12 intact. MUSCULOSKELETAL: Without any acute deformities. LABORATORY DATA: CBC this morning, hemoglobin 8, WBC count normal, platelet count were normal. CMP that was done on 11/19/2017, BUN 44, creatinine 5.93. Glucose 237. Sodium 131, potassium 5.8, chloride of 95. Lactic acid was 1.9. Chest x-ray of the patient, which was done today shows the finding of congestive heart failure with small area of basilar atelectasis. IMPRESSION: 1. The patient who had been currently admitted to the hospital with increased shortness of breath, most likely related to the acute congestive heart failure noted with peripheral edema as well with history of diastolic dysfunction for the congestive heart failure. 2. End-stage renal failure, on hemodialysis. 3. Anemia of chronic disease. 4. History of restless leg syndrome. 5. Bronchial asthma without acute exacerbation. 6. Right lower lobe atelectasis, not consistent with acute pneumonia. 7. Previous treatment for Clostridium difficile colitis was noted as well. 8. The patient with chronic obesity. 9. Obstructive sleep apnea disorder. 10. Chronic hypoxic respiratory failure with dependency on oxygen. [place], [place] REPORT OF CONSULTATION NAME: KARTHIKEYAN MIDDLETON UNIT #: [id number] ROOM: [facility] DOCTOR: RENÉ TEJADA MD BIRTHDATE: [birth year] 11. History of hypothyroidism. 12. Type 2 diabetes mellitus. PLAN OF MANAGEMENT: The patient would be continued on dialysis, today is the usual day of dialysis. The patient will be recommended for maximum of ____ during dialysis to be done. She would not require any antibiotic. There was ____ signs of pneumonia. Continue use of bronchodilator. The BiPAP was also ordered in the setting of 15/03 with oxygen supplementation 4 liters nasal cannula to be used at nighttime. ____ case of respiratory distress. Monitor edema of the lower extremity as the medical management as previously. Usual care with additional treatment changes will be made for this patient based on further progression of the illness. RENÉ CALIX MD CM:CONSTR:REPORT OF CONSULTATION 1122 11/20/17 1420 interface
--- NOTE | ~2017-11-19 | PR ---
[place], [place] PROGRESS NOTE NAME: KARTHIKEYAN MIDDLETON UNIT #: [id number] ROOM: 410 DOCTOR: RENÉ TEJADA MD BIRTHDATE: [birth year] DOS: 11/22/2017 PULMONARY ADDENDUM NOTE SUBJECTIVE: The patient independently seen and examined, [id number] encounter, history was confirmed. Labs were reviewed. Physical examination performed. Assessment and management today's note were personally completed. Note done by the medical photographer was approved as well. She has been showing gradual reduction in edema of the lower extremities. The patient in reduction in symptoms of shortness of breath this morning. Receiving hemodialysis for her routine in dialysis today. She has not noted symptoms of chest pain, coughing, or sputum expectoration. Denies symptoms of abdominal pain. Using the BiPAPa s ordered as well. OBJECTIVE: VITAL SIGNS: For the patient which were recorded showed the temperature noted as normal. Respiratory rate recorded as 18, heart rate of 56, blood pressure was 160/57. The pulse oxygen saturation noted on 4 liters nasal cannula 98% saturation. HEENT: Examination shows head was atraumatic. Eyes nonicterus. NECK: Supple. CARDIOVASCULAR: S1, S2 audible. LUNGS: Generally reduced breath sounds. The patient noted with [id number]. There were no crackles heard. ABDOMEN: Soft. EXTREMITIES: Still noticed severe edema of the lower extremity, but partial reduction noted from admission. LABORATORY DATA: BMP today: BUN 51, creatinine 6.28. Sodium 130, potassium 5.6. IMPRESSION: 1. Congestive heart failure with fluid overload, the patient is responding to treatment, improving symptoms of shortness breath. 2. Chronic hypoxic respiratory failure. 3. Bronchial asthma. 4. Obstructive sleep apnea disorder. PLAN OF TREATMENT: Continue maximum free water removal with the hemodialysis. The patient was planned for possible removal of about 5 kilograms of free water for possible and tolerated per dialysis nursing staff. Continue in the meantime, all other supportive therapy, plan of management. No additional changes for today's treatment needs to be done. [place], [place] PROGRESS NOTE NAME: KARTHIKEYAN MIDDLETON UNIT #: [id number] ROOM: 410 DOCTOR: RENÉ TEJADA MD BIRTHDATE: [birth year] RENÉ CALIX MD CM:MIRIAM [id number] 15 RENÉ MUHAMMAD MD 11/22/171914 interface
--- NOTE | ~2017-11-19 | PR ---
[place], [place] PROGRESS NOTE NAME: KARTHIKEYAN MIDDLETON [facility] #: [id number] UNIT #: [id number] ROOM: 410 DOCTOR: NILA MCINTOSH DO BIRTHDATE: [birth year] DOS: 11/21/2017 SUBJECTIVE: The patient was seen and evaluated today. She complains of feeling cold. She denies any shaking chills. She denies any further episodes of diarrhea. Additionally, she denies any lightheadedness, headache, chest pain, shortness of breath, nausea, vomiting. She does admit to lower extremity swelling. She did have dialysis yesterday. She states that they took off 3 pounds of fluid. She states that she urinates very little. OBJECTIVE: VITAL SIGNS: Temperature 98.1, heart rate 61, respirations 17, blood pressure 150/67, pulse ox is 97% on 4 liters nasal cannula. HEENT: Ecchymosis over the right eye. Eyes nonicteric. NECK: Supple. CARDIOVASCULAR: S1, S2 audible. LUNGS: Decreased breath sounds at the bases bilaterally. ABDOMEN: Soft, morbidly obese, bowel sounds present, no tenderness to palpation. EXTREMITIES: 2+ edema bilaterally. The left foot and ankle are wrapped with a dressing. DERMATOLOGICAL: Visible skin, no lesions or rashes. There is a lesion on the left heel that is covered at this time. Heel protectors are in place. CENTRAL NERVOUS SYSTEM: Cranial nerves 2-12 intact. No focal deficit. MUSCULOSKELETAL: No acute deformities. LABORATORY DATA: BMP today, sodium 131, potassium 4.9, chloride 93, CO2 of 24, BUN 37, creatinine 5.34, glucose 322. IMPRESSION: 1. Acute congestive heart failure. 2. End-stage renal failure, on hemodialysis. 3. Anemia of chronic disease. 4. Restless leg syndrome. 5. Bronchial asthma without acute exacerbation. 6. Right lower lobe atelectasis, not consistent with acute pneumonia. 7. Previous treatment for Clostridium difficile colitis. 8. Chronic obesity. 9. Obstructive sleep apnea. 10. Chronic hypoxic respiratory failure with dependency on oxygen. 11. Hypothyroidism. 12. Type 2 diabetes. PLAN OF MANAGEMENT: Ultrasound performed at bedside still showing mild bilateral pleural effusions. Can continue IV diuresis. Most benefit will come from continue to remove excess fluid during dialysis. She is still in congestive heart failure at this time. She is due for dialysis tomorrow. Further recommendations will be based upon further progression of the illness. [place], [place] PROGRESS NOTE NAME: KARTHIKEYAN MIDDLETON UNIT #: [id number] ROOM: 410 DOCTOR: NILA MCINTOSH DO BIRTHDATE: [birth year] Nila Mcintosh DO RENÉ CALIX MD CM:MIRIAM [phone] NILA MCINTOSH DO 12/19/17 0844 interface
--- NOTE | ~2017-11-19 | PR ---
[place], [place] PROGRESS NOTE NAME: KARTHIKEYAN MIDDLETON [facility] #: [id number] UNIT #: [id number] ROOM: 410 DOCTOR: FILIPE RUBI DPM BIRTHDATE: [birth year] DOS: 11/23/2017 SUBJECTIVE: The patient was seen for followup of postop left foot fifth toe and partial fifth metatarsal amputation and followup of ulceration of the right heel. OBJECTIVE: The left foot lateral foot wound is fibrotic and stable. No signs of purulent drainage or foul odor. No return of abscess. The right heel wound is stable, at this time it is full thickness with no signs of infection. ASSESSMENT: Post-osteomyelitis amputation of fifth left metatarsal partial and fifth left toe and diabetic ulceration of the right heel. PLAN: Evaluation and management. Continue local wound care and offloading. The patient will be seen for continued care and followup of the wounds while she is in-house. FILIPE RUBI DPM CM:PNTRANS [id number] FILIPE RUBI DPM 11/23/172105 interface
--- NOTE | ~2017-11-19 | PR ---
[place], [place] PROGRESS NOTE NAME[facility] MID[facility]TON [id number] UN[facility] #: [id number] ROOM: 410 DOCTOR: TUSHAR MATTHEWS MD BIRTHDATE: [birth year] DOS: 11/23/2017 NEPHROLOGY FOLLOWUP NOTE SUBJECTIVE: The patient was seen and examined. She is awake and alert. She was eating lunch when I saw her. She was sitting up in bed. States she was still having shortness of breath. She was on nasal cannula and appeared comfortable. PHYSICAL EXAMINATION: VITAL SIGNS: Showed temperature 97.3, pulse 65, respiration rate 20, blood pressure 136/66. HEENT: Shows no JVD. LUNGS: Diminished breath sounds with no wheeze. HEART: S1, S2. No rub, thrill, or gallop. ABDOMEN: Soft, nontender. EXTREMITIES: Showed 2-3+ edema. SKIN: Showed no rash. LABORATORY DATA: Latest labs were from yesterday showing chemistry of BUN 51, creatinine 6.3, potassium 5.6, sodium 130. From 11/20, hemoglobin 8.0. ASSESSMENT AND PLAN: 1. End-stage renal disease on hemodialysis Saturday, Saturday, Saturday. The patient will have dialysis on Saturday as per schedule. We will remove fluid as tolerated. 2. Anemia. The patient will receive erythropoietin stimulating agents with dialysis. 3. Congestive heart failure. Continue fluid removal with dialysis. The patient is on BiPAP as well. 4. Hypertension. Continue medications. TUSHAR MATTHEWS MD CM:PNTRANS [id number] TUSHAR MATTHEWS MD 11/23/17 3459 interface
--- NOTE | ~2017-11-19 | PR ---
[place], [place] PROGRESS NOTE NAME: KARTHIKEYAN MIDDLETON UNIT #: [id number] ROOM: 410 DOCTOR: MAIA AGUILAR MD BIRTHDATE: [birth year] DOS: 11/21/2017 SUBJECTIVE: The patient says her breathing is improving slowly. OBJECTIVE: VITAL SIGNS: Blood pressure 133/64, heart rate is 57 beats per minute, breathing 18 times per minute, temperature 98.1 degrees Fahrenheit. GENERAL APPEARANCE: The patient is alert and oriented x 3, in no visible distress. Obesity. HEENT AND NECK: Exam within normal limits. CARDIOVASCULAR SYSTEM: Heart rate is regular in rate and rhythm. S1 and S2 normally audible. LUNGS: Clear to auscultation. ABDOMEN: Soft, nontender. No obvious organomegaly. Bowel sounds are present. EXTREMITIES: Without significant cyanosis or edema. The patient also has left foot toe amputations and recent surgery with a healing scar. 1. The patient with left foot toe amputation and osteomyelitis, which is being treated with IV cefazolin and vancomycin by the Infectious Disease specialist and recommended IV vancomycin and cefazolin until 12/16/2017 for osteomyelitis of the left foot. 2. The patient with acute diastolic type congestive heart failure, improving with diuresis with IV Bumex. 3. Major depression, recurrent, mild to moderate, treated with Zoloft. 4. Hypothyroidism, replaced with levothyroxine. 5. End-stage chronic kidney disease and kidney failure, the patient remains on hemodialysis. 6. Hyperkalemia, improving with treatment and low potassium diet. 7. Centrilobular emphysema with chronic shortness of breath, treated with bronchodilators. 8. Chronic nausea with diabetic gastroparesis, being treated with Reglan. 9. Chronic pain syndrome. Pains are reasonably controlled with Percocet. 10. Benign essential hypertension, treated and controlled. The patient remained on Coreg. 11. Mixed hyperlipidemia is being treated. 12. Moderate protein-calorie malnutrition. The patient is working with Dietary. [place], [place] PROGRESS NOTE NAME: KARTHIKEYAN MIDDLETON UNIT #: [id number] ROOM: 410 DOCTOR: MAIA AGUILAR MD BIRTHDATE: [birth year] MAIA AGUILAR MD CM:MIRIAM 21 MAIA AGUILAR MD 11/22/17 0532 interface
--- NOTE | ~2017-11-19 | DS ---
[place], [place] DISCHARGE SUMMARY NAME: KARTHIKEYAN MIDDLETON [facility] #: [id number] UNIT #: [id number] ROOM: 410 DOCTOR: MAIA AGUILAR MD BIRTHDATE: [birth year] DOS: 11/24/2017 DISCHARGE DIAGNOSES: 1. Acute diastolic type congestive heart failure. 2. Chronic kidney failure, the patient on hemodialysis. 3. Severe generalized anxiety disorder. 4. Chronic respiratory failure, treated with BiPAP. 5. Chronic hyperkalemia, related to kidney failure. 6. Benign essential hypertension. 7. Chronic nausea with diabetic gastroparesis. 8. Hypothyroidism. 9. Uncontrolled type 2 diabetes mellitus including diabetic nephropathy, peripheral vascular disease and diabetic peripheral polyneuropathy. 10. Mixed hyperlipidemia. 11. Anemia of chronic disease and kidney failure. 12. Moderate protein-calorie malnutrition. 13. Chronic obstructive pulmonary disease with chronic respiratory failure. The patient on BiPAP at night and oxygen dependence. 14. Obesity. 15. Nicotine smoke dependence. 16. Osteomyelitis involving left ankle and foot, being followed by ID and the spool cleaner. HOSPITAL COURSE: The patient presented to [facility] with increased shortness of breath and acute diastolic type congestive heart failure with vascular congestion on the chest x-ray. The patient admitted and diuresed with Bumex and extra fluid was removed with hemodialysis. The patient is back to baseline and is being discharged back to [facility], but I expect recurrent admissions to [facility] because the patient is very poorly compliant with treatment. Also, she has severe anxiety issues and somehow she likes to be in the hospital along with the fact that she has multiple medical problems and has been chronically sick. 1. End-stage chronic kidney disease. The patient maintained on hemodialysis. 2. Chronic respiratory failure and sleep apnea. The patient on BiPAP at night. Same settings to be continued as in the past. 3. Hypothyroidism, treated with levothyroxine. 4. Centrilobular emphysema, treated with bronchodilators, oxygen and BiPAP. 5. Osteomyelitis involving left ankle and foot. Antibiotics to be continued until 12/16/2017 as recommended by Infectious Disease specialist. The patient on vancomycin and cefazolin. 6. Chronic nausea and diabetic gastroparesis, treated with Reglan. 7. Mixed hyperlipidemia. Plan to continue treatment. 8. Moderate protein calorie malnutrition. The patient is followed by Dietary. LABORATORY DATA: BUN and creatinine 51 and 6.28, potassium 5.6, hemoglobin at 8. Recent albumin level has normalized at 3.3 with better diet. DISCHARGE MANAGEMENT: Hemodialysis 3 times a week, Zoloft 50 mg a day, Pepcid 20 mg a day, Coreg 12.5 mg daily, calcium acetate 667 mg t.i.d., levothyroxine 50 mcg daily, Lantus insulin 30 units subcutaneous b.i.d., ropinirole 0.5 mg at [place], [place] DISCHARGE SUMMARY NAME: KARTHIKEYAN MIDDLETON UNIT #: [id number] ROOM: 410 DOCTOR: LAUREN BERNAL,MAIA Gould BIRTHDATE: [birth year] bedtime, brimonidine 1 drop 3 times a day to the eyes. Latanoprost eye drops to affected eye at night. Metoclopramide 10 mg q.i.d., Dulcolax 10 mg daily p.r.n. for constipation, timolol eye drops every 8 hours one drop. DuoNeb every 4 hours as needed for shortness of breath. IV cefazolin 2 grams with every hemodialysis, IV vancomycin 1000 mg with every hemodialysis until 12/16/2017. Pregabalin 100 mg b.i.d., Percocet 5/325 mg q.i.d. p.r.n. for pain, lorazepam 0.5 mg every 6 hours p.r.n. for anxiety. MAIA AGUILAR MD CM:LULIARG [id number] MAIA AGUILAR MD 11/24/17 1521 interface
--- NOTE | ~2017-11-19 | PR ---
[place], [place] PROGRESS NOTE NAME: KARTHIKEYAN MIDDLETON [facility] #: [id number] UNIT #: [id number] ROOM: 410 DOCTOR: TUSHAR MATTHEWS MD BIRTHDATE: [birth year] DOS: 11/24/2017 NEPHROLOGY FOLLOWUP NOTE SUBJECTIVE: The patient was seen and evaluated. She was lying in bed. She has a nasal cannula. She is in no acute distress. She looks about the same. There are noted plans for discharge today. PHYSICAL EXAMINATION: VITAL SIGNS: Temperature 97.9, pulse 62, respiratory rate 20, blood pressure was in the low 100s-110s. GENERAL: She is lying in bed, no acute distress. HEENT: Shows no JVD. LUNGS: Diminished breath sounds with no wheeze. HEART: S1, S2. No rub. ABDOMEN: Soft, nontender. EXTREMITIES: Have 1-2+ edema. SKIN: Showed no rash. No recent labs were noted. ASSESSMENT AND PLAN: 1. End-stage renal disease. The patient is on hemodialysis on Saturday, Saturday and Saturday. Dialysis will be planned for tomorrow. As noted, she is discharged, she will report to the clinic for her regular treatment. Fluid removal as tolerated. 2. Anemia. Continue erythropoietin stimulating agents with dialysis. 3. Congestive heart failure. Fluid removal with dialysis as tolerated. 4. Hypertension. Continue medications. She is stable for discharge from renal standpoint if that is desired. Otherwise, she will have dialysis tomorrow in the hospital. TUSHAR MATTHEWS MD CM:PNTRANS [id number] TUSHAR MATTHEWS MD 11/25/17 0403 interface
[~2017-11-19 12:15] MED LIST changes: +FLAGYL250 MG PO
[2017-11-19 12:18] VITALS: BP 113/57
[2017-11-19 13:23] LABS: BASO # 0.1 10*3/uL (0.0-0.1); BASO % 0.5 % (0.0-1.0); EOS # 0.1 10*3/uL (0.0-0.4); EOS % 1.4 % (1.0-4.0); HEMATOCRIT 27.2 % (37.0-47.0); HEMOGLOBIN 7.9 g/dl (12.0-16.0); LYMPH % 10.2 % (27.0-41.0); MEAN CELL VOLUME 97.5 fl (81.0-99.0); MEAN CORPUSCULAR HGB 28.3 pg (27.0-31.0); MONO # 1.3 10*3/uL (0.1-1.0); MONO % 13.5 % (3.0-9.0); NEUT # 6.9 10*3/uL (2.3-7.9); NEUT % 72.3 % (47.0-73.0); NUCLEATED RED BLOOD CELL 0.1 10*3/uL (0.0-0.0); PLATELET COUNT AUTOMATED 238 10*3/uL (130-400); RED BLOOD COUNT 2.79 10*6/uL (4.10-5.10); RED CELL DISTRI WIDTH 19.2 % (0-14.5); WHITE BLOOD COUNT 9.5 10*3/uL (4.8-10.8)
[2017-11-19 13:44] LABS: ALBUMIN 3.3 gm/dl (3.1-4.5); ALKALINE PHOSPHATASE 794 U/L (45-117); BUN 44 mg/dl (7-24); CHLORIDE 95 mmol/L (98-107); CREATININE 5.93 mg/dL (0.55-1.02); POTASSIUM 5.8 mmol/L (3.5-5.1); SGOT/AST 36 IU/L (3-35); SGPT/ALT 42 U/L (12-78); SODIUM 131 mmol/L (136-145); TOTAL PROTEIN 8.8 gm/dL (6.4-8.2)
[2017-11-19 13:45] LABS: TROPONIN I < 0.015 ng/ml (<0.045)
[2017-11-19 15:45] VITALS: BP 126/59
[2017-11-19 16:00] VITALS: BP 126/59
[2017-11-19] MEDS ORDERED: DULCOLAX10 M1 R (16:29)
[2017-11-19] MEDS ORDERED: FLAGYL250 MG PO (16:33)
[2017-11-19] MEDS ORDERED: NOVOLOG10 ML SC (16:44)
[2017-11-19 20:00] VITALS: BP 121/46
[2017-11-20] VITALS: BP 102/52
[2017-11-20 05:00] VITALS: BP 127/68; BP 147/68
[2017-11-20 07:01] LABS: BASO # 0.1 10*3/uL (0.0-0.1); BASO % 0.6 % (0.0-1.0); EOS # 0.2 10*3/uL (0.0-0.4); EOS % 2.4 % (1.0-4.0); HEMATOCRIT 27.8 % (37.0-47.0); LYMPH % 12.1 % (27.0-41.0); MEAN CELL VOLUME 97.5 fl (81.0-99.0); MEAN CORPUSCULAR HGB 28.1 pg (27.0-31.0); MEAN CORPUSCULAR HGB CONC 28.8 g/dl (33.0-37.0); MEAN PLATELET VOLUME 10.7 fl (9.6-12.3); MONO # 1.4 10*3/uL (0.1-1.0); MONO % 16.4 % (3.0-9.0); NEUT # 5.7 10*3/uL (2.3-7.9); NEUT % 66.5 % (47.0-73.0); NUCLEATED RED BLOOD CELL 0.1 10*3/uL (0.0-0.0); NUCLEATED RED BLOOD CELL 0.9 % (0.0-0.0); PLATELET COUNT AUTOMATED 232 10*3/uL (130-400); RED BLOOD COUNT 2.85 10*6/uL (4.10-5.10); RED CELL DISTRI WIDTH 19.4 % (0-14.5); WHITE BLOOD COUNT 8.5 10*3/uL (4.8-10.8)
[2017-11-20 07:11] LABS: CREATININE 6.64 mg/dL (0.55-1.02); POTASSIUM 5.4 mmol/L (3.5-5.1)
[2017-11-20 08:00] VITALS: BP 160/79
[2017-11-20 12:00] VITALS: BP 140/66
[2017-11-20 16:00] VITALS: BP 127/68
[2017-11-20 21:13] VITALS: BP 159/79
[2017-11-21] VITALS: BP 150/75
[2017-11-21 08:00] VITALS: BP 141/59; BP 160/56
[2017-11-21 08:06] LABS: CREATININE 5.34 mg/dL (0.55-1.02); POTASSIUM 4.9 mmol/L (3.5-5.1)
[2017-11-21 12:00] VITALS: BP 150/67
[2017-11-21 16:00] VITALS: BP 133/64
[2017-11-21 20:00] VITALS: BP 126/52
[2017-11-22] VITALS: BP 116/57
[2017-11-22 06:27] LABS: CREATININE 6.28 mg/dL (0.55-1.02); POTASSIUM 5.6 mmol/L (3.5-5.1)
[2017-11-22 12:00] VITALS: BP 145/65
[2017-11-22 16:00] VITALS: BP 140/70
[2017-11-22 20:00] VITALS: BP 138/70
[2017-11-23] VITALS: BP 136/66
[2017-11-23 08:00] VITALS: BP 140/62
[2017-11-23 12:00] VITALS: BP 114/55
[2017-11-23 16:00] VITALS: BP 116/63
[2017-11-23 20:00] VITALS: BP 100/53
[2017-11-24] VITALS: BP 102/50
[2017-11-24 12:00] VITALS: BP 115/59
[2017-12-06] MEDS ORDERED: CYMBALTA60 MG PO (03:09)
[2017-12-06] MEDS ORDERED: LEVOFLOXACIN500 MG PO (03:13)
[2017-12-06] MEDS ORDERED: METOCLOPRAMIDE H5 M1 PO (03:15)
[2017-12-06] MEDS ORDERED: VANCOMYCIN HYDRO1 GM IV (08:13)
[2017-12-06] MEDS ORDERED: CEFAZOLIN2 GM/10 ML IV (08:14)
[2017-12-06] MEDS ORDERED: ATIVAN1 MG PO (08:16)
== END 2017-11-24 14:49 | DRG 291 ==
LOC: ED 12:15 → EDHOLD 14:10 → 4E 14:10
PROVIDERS: Internal Medicine; Nurse Practitioner Family
PROC: 5A1D70Z Performance of Urinary Filtration, Intermittent, Less than 6 Hours Per Day (ICD-10-PCS; principal; 2017-11-20)
PROC: 5A09357 Assistance with Respiratory Ventilation, Less than 24 Consecutive Hours, Continuous Positive Airway Pressure (ICD-10-PCS; 2017-11-21)
PROC: 5A1D70Z Performance of Urinary Filtration, Intermittent, Less than 6 Hours Per Day (ICD-10-PCS; 2017-11-22)
PROC: 5A09357 Assistance with Respiratory Ventilation, Less than 24 Consecutive Hours, Continuous Positive Airway Pressure (ICD-10-PCS; 2017-11-22)
PROC: 5A09357 Assistance with Respiratory Ventilation, Less than 24 Consecutive Hours, Continuous Positive Airway Pressure (ICD-10-PCS; 2017-11-23)
PROC: 5A09357 Assistance with Respiratory Ventilation, Less than 24 Consecutive Hours, Continuous Positive Airway Pressure (ICD-10-PCS; 2017-11-24)
DX: I13.2 Hypertensive heart and chronic kidney disease with heart failure and with stage 5 chronic kidney disease, or end stage renal disease (principal); I50.33 Acute on chronic diastolic (congestive) heart failure; J96.21 Acute and chronic respiratory failure with hypoxia; E11.22 Type 2 diabetes mellitus with diabetic chronic kidney disease; E44.0 Moderate protein-calorie malnutrition; E66.01 Morbid (severe) obesity due to excess calories; K31.84 Gastroparesis; N18.6 End stage renal disease; F33.1 Major depressive disorder, recurrent, moderate; Z68.41 Body mass index [BMI] 40.0-44.9, adult; M86.8X7 Other osteomyelitis, ankle and foot; J43.2 Centrilobular emphysema; E11.42 Type 2 diabetes mellitus with diabetic polyneuropathy; E03.9 Hypothyroidism, unspecified; G47.33 Obstructive sleep apnea (adult) (pediatric); H40.9 Unspecified glaucoma; G89.4 Chronic pain syndrome; F41.1 Generalized anxiety disorder; G25.81 Restless legs syndrome; S91.309A Unspecified open wound, unspecified foot, initial encounter; E87.5 Hyperkalemia; E11.621 Type 2 diabetes mellitus with foot ulcer; E78.2 Mixed hyperlipidemia; E11.43 Type 2 diabetes mellitus with diabetic autonomic (poly)neuropathy; E11.65 Type 2 diabetes mellitus with hyperglycemia; F17.210 Nicotine dependence, cigarettes, uncomplicated; D63.1 Anemia in chronic kidney disease; E11.69 Type 2 diabetes mellitus with other specified complication; E11.51 Type 2 diabetes mellitus with diabetic peripheral angiopathy without gangrene; L89.610 Pressure ulcer of right heel, unstageable; X58.XXXA Exposure to other specified factors, initial encounter; Z99.81 Dependence on supplemental oxygen; Z88.1 Allergy status to other antibiotic agents; Z91.041 Radiographic dye allergy status; Z91.013 Allergy to seafood; Z79.4 Long term (current) use of insulin; Z79.899 Other long term (current) drug therapy; Z90.49 Acquired absence of other specified parts of digestive tract; Z98.891 History of uterine scar from previous surgery; Z80.0 Family history of malignant neoplasm of digestive organs; Z83.3 Family history of diabetes mellitus; Z99.2 Dependence on renal dialysis; Z87.01 Personal history of pneumonia (recurrent); Z89.422 Acquired absence of other left toe(s); Y93.89 Activity, other specified; Y92.89 Other specified places as the place of occurrence of the external cause; Y99.8 Other external cause status; Z84.89 Family history of other specified conditions

== ENCOUNTER 2017-11-24 19:25 | Emergency (ER) | payer MEDICARE, MEDICAID ==
[~2017-11-24] VITALS: Wt 90.7 kg
--- NOTE | ~2017-11-24 | EKG ---
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
[2017-11-24 20:03] LABS: BASO % 0.3 % (0.0-1.0); EOS # 0.2 10*3/uL (0.0-0.4); EOS % 1.3 % (1.0-4.0); HEMATOCRIT 27.1 % (37.0-47.0); HEMOGLOBIN 7.9 g/dl (12.0-16.0); LYMPH # 0.8 10*3/uL (1.3-4.4); LYMPH % 6.6 % (27.0-41.0); MEAN CELL VOLUME 97.8 fl (81.0-99.0); MEAN CORPUSCULAR HGB 28.5 pg (27.0-31.0); MEAN CORPUSCULAR HGB CONC 29.2 g/dl (33.0-37.0); MEAN PLATELET VOLUME 11.2 fl (9.6-12.3); MONO # 1.3 10*3/uL (0.1-1.0); MONO % 10.9 % (3.0-9.0); NEUT # 9.1 10*3/uL (2.3-7.9); NEUT % 79.3 % (47.0-73.0); NUCLEATED RED BLOOD CELL 0.1 10*3/uL (0.0-0.0); NUCLEATED RED BLOOD CELL 0.6 % (0.0-0.0); PLATELET COUNT AUTOMATED 191 10*3/uL (130-400); RED BLOOD COUNT 2.77 10*6/uL (4.10-5.10); WHITE BLOOD COUNT 11.4 10*3/uL (4.8-10.8)
[2017-11-24 20:15] LABS: CREATININE 7.08 mg/dL (0.55-1.02)
[2017-11-24 20:17] LABS: POTASSIUM 6.1 mmol/L (3.5-5.1)
[2017-11-24 21:26] VITALS: BP 106/80
[2017-12-06] MEDS ORDERED: CYMBALTA60 MG PO (03:09)
[2017-12-06] MEDS ORDERED: LEVOFLOXACIN500 MG PO (03:13)
[2017-12-06] MEDS ORDERED: METOCLOPRAMIDE H5 M1 PO (03:15)
[2017-12-06] MEDS ORDERED: VANCOMYCIN HYDRO1 GM IV (08:13)
[2017-12-06] MEDS ORDERED: CEFAZOLIN2 GM/10 ML IV (08:14)
[2017-12-06] MEDS ORDERED: ATIVAN1 MG PO (08:16)
== END 2017-11-24 21:25 | disposition home or self-care (01) ==
LOC: ED 19:25
PROVIDERS: Emergency Medicine Emergency Medical Services
DX: E87.5 Hyperkalemia (principal); F41.9 Anxiety disorder, unspecified; F17.210 Nicotine dependence, cigarettes, uncomplicated; I13.2 Hypertensive heart and chronic kidney disease with heart failure and with stage 5 chronic kidney disease, or end stage renal disease; E11.22 Type 2 diabetes mellitus with diabetic chronic kidney disease; N18.6 End stage renal disease; I50.9 Heart failure, unspecified; J44.9 Chronic obstructive pulmonary disease, unspecified; G89.4 Chronic pain syndrome; E11.621 Type 2 diabetes mellitus with foot ulcer; L97.519 Non-pressure chronic ulcer of other part of right foot with unspecified severity; E78.5 Hyperlipidemia, unspecified; G62.9 Polyneuropathy, unspecified; E66.9 Obesity, unspecified; Z68.39 Body mass index [BMI] 39.0-39.9, adult; Z99.2 Dependence on renal dialysis; Z98.890 Other specified postprocedural states; Z90.49 Acquired absence of other specified parts of digestive tract; Z79.899 Other long term (current) drug therapy; Z88.1 Allergy status to other antibiotic agents; Z91.013 Allergy to seafood; Z99.81 Dependence on supplemental oxygen

== ENCOUNTER 2017-12-01 13:50 | Inpatient (IN) | payer MEDICARE, MEDICAID ==
[~2017-12-01] VITALS: Ht 162.6 cm; Wt 112.1 kg
--- NOTE | ~2017-12-01 | EKG ---
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
--- NOTE | ~2017-12-01 | WRIGHTHP ---
[place], [place] PATIENT HISTORY AND PHYSICAL EXAM NAME: KARTHIKEYAN MIDDLETON [facility] #: [id number] UNIT #: [id number] ROOM: 425 DOCTOR: MELISSA CORTES MD BIRTHDATE: [birth year] DOS: 12/01/2017 HISTORY OF PRESENT ILLNESS: The patient is 52-year-old who presents to the Emergency Room with complaints of nausea, abdominal discomfort. She was evaluated in the ER, was admitted. She also complains of a low grade temperature. The patient did tell the nurses that she is no longer on Reglan, but this morning states that she is still on it. She denies having any fever, any chills, any chest pains or palpitations. PAST MEDICAL HISTORY: Significant for: 1. Last hospitalization in October for acute diastolic CHF. 2. End-stage renal failure, on dialysis. 3. Chronic pain syndrome. 4. Peripheral neuropathy, diabetic. 5. Chronic respiratory failure, on BiPAP. 6. Chronic hypokalemia. 7. Benign hypertension. 8. Hypothyroidism. 9. Type 2 diabetes mellitus, uncontrolled. 10. Noncompliance with poor insight to medical problems. 11. Osteomyelitis of the left ankle and foot, antibiotics to be continued until December 16 as per ID specialist. MEDICATIONS: She is currently on cefazolin, vancomycin, latanoprost eyedrops, brimonidine eyedrops, Timolol eyedrops, Coreg, vitamin C, calcium acetate, vitamin D, Pepcid, levothyroxine, liothyronine, lorazepam, Percocet, Lyrica, ReQuip. SOCIAL HISTORY: Nonsmoker, does not use any alcohol. PHYSICAL EXAMINATION: GENERAL: She is ____ facial edema and overall increased swelling in the abdominal wall as well as thighs and noticed with evidence of anasarca. VITAL SIGNS: Blood pressure 132/70, pulse of 76, respirations 14, afebrile. LUNGS: Diminished breath sounds. HEART: Regular. ABDOMEN AND EXTREMITIES: Obese, soft, quite a lot of abdominal wall edema as well as lower leg edema. The small wound noticed on the left side of the abdomen, which is almost completely healed. There is no evidence of any drainage, did not notice any drainage from any of the foot wounds, which are mostly dry. She will be started on dry dressings. ASSESSMENT AND PLAN: 1. A 52-year-old presents with nausea and emesis, possibly medication induced, possible gastroparesis. Restart the Reglan and continue Zofran. 2. Elevated white cell count with small pneumonia noticed on a chest x-ray, on breathing treatments and antibiotics, which are being continued. 3. Recent osteomyelitis. The patient was on antibiotics even before she arrived at the hospital and are to be continued until December 16. 4. Chronic pain syndrome. We will discontinue Lyrica and Requip because the [place], [place] PATIENT HISTORY AND PHYSICAL EXAM NAME: KARTHIKEYAN MIDDLETON UNIT #: [id number] ROOM: 425 DOCTOR: MELISSA CORTES MD BIRTHDATE: [birth year] patient appears to be increasingly somnolent. 5. Hypokalemia. The patient is very noncompliant with her diet, which could be responsible for this. MELISSA CORTES MD CM:HISPHYS:PATIENT HISTORY AND PHYSICAL EXAMINATION [phone] MELISSA CORTES MD 12/02/17 0954 interface
--- NOTE | ~2017-12-01 | CON ---
[place], [place] REPORT OF CONSULTATION NAME: KARTHIKEYAN MIDDLETON [facility] #: [id number] UNIT #: [id number] ROOM: 425 DOCTOR: TUSHAR MATTHEWS MD BIRTHDATE: [birth year] DOS: 12/02/2017 NEPHROLOGY CONSULTATION REASON FOR CONSULTATION: Management of dialysis. At the time of consultation, the patient was seen on hemodialysis. HISTORY OF PRESENT ILLNESS: This patient is a 52-year-old female. She has a past history of known end-stage renal disease on hemodialysis Saturday, Saturday and Saturday. The patient is under the care of Dr. Crystal Taveras at [facility], who we cover for here at [facility]. She tends to present to the hospital frequently. The patient has a tunneled dialysis catheter for dialysis access. She apparently was admitted to the hospital with pneumonia. She has issues with chronic hyperkalemia and I was contacted yesterday with her potassium 6.5. I gave specific orders and instructions with various modes of treatment, then her potassium levels did improve. At the time of consultation, she was seen on hemodialysis by orders, discussed with the dialysis nurse this morning. She currently feels about the same. Denies nausea or vomiting. She does have some shortness of breath. Denies fevers or chills. ALLERGIES: Listed to BIAXIN, ERYTHROMYCIN, IODINE, SHELLFISH. MEDICATIONS: Include eye drops, brimonidine, liothyronine, insulin, Zoloft, Reglan, Pepcid, levothyroxine, vancomycin, Ancef, lorazepam, Zosyn. PAST MEDICAL HISTORY: 1. End-stage renal disease, on hemodialysis as stated above. 2. Tunneled dialysis catheter. 3. Anxiety. 4. Chronic hyperkalemia. 5. Foot amputation. 6. Osteomyelitis. 7. CHF. 8. Chronic pain. 9. COPD. 10. Diabetes. 11. Diabetic foot ulcer. 12. Hyperlipidemia. 13. Hypertension. 14. Obesity. 15. . 16. Foot surgery. 17. Appendectomy. 18. Noncompliance. FAMILY HISTORY: No reports of chronic kidney disease, otherwise, noncontributory. SOCIAL HISTORY: She has a history of tobacco abuse. No history of illicit drugs or alcohol. [place], [place] REPORT OF CONSULTATION NAME: KARTHIKEYAN MIDDLETON UNIT #: [id number] ROOM: 425 DOCTOR: CASSIE BERNALTUSHAR Peter BIRTHDATE: [birth year] REVIEW OF SYSTEMS: As per HPI, otherwise, a 10-point review of systems was reviewed and was negative. PHYSICAL EXAMINATION: VITAL SIGNS: Temperature 97.6, pulse of 61, respiration rate 20, blood pressure 108/70. GENERAL: She is awake, alert, seen on dialysis, no acute distress. HEENT: Shows no JVD. Sclerae are anicteric. Mucous members appeared moist. Pharynx is clear. NECK: Supple. Trachea midline. No neck lymphadenopathy or thyromegaly. LUNGS: Had diminished breath sounds with no wheeze. There is no tactile fremitus. She is not using accessory muscles of respiration. HEART: S1, S2. No rub, thrill or gallop. ABDOMEN: Soft, nontender. There is no organomegaly, rigidity, rebound, or guarding. There is no CVA tenderness. EXTREMITIES: Have 3+ edema. There is no lower extremity lymphadenopathy. Distal pulses are present. SKIN: Showed no overt rash. There was no petechia or purpura. Skin temperature is warm. NEUROLOGIC: She is awake, alert and following commands. Cranial nerves intact. LABORATORY DATA: Sodium 120, potassium 6, CO2 of 23, BUN 56, creatinine 6.1, glucose 185, hemoglobin 8.6, white count of 16,000, platelets 270. ASSESSMENT: 1. End-stage renal disease on hemodialysis Saturday, Saturday, Saturday through a tunneled dialysis catheter. 2. Chronic hyperkalemia. 3. Leukocytosis. 4. Questionable pneumonia. 5. Hypertension. 6. Volume overloaded. 7. Anemia of chronic disease. 8. Noncompliance. PLAN: 1. Dialysis to continue as per her normal schedule. 2. Replace in standard low potassium renal diet. 3. Dose meds for end-stage renal disease. 4. We would decrease the Reglan dose to 5 mg in view of proper dose adjustment for end-stage renal disease. 5. Continue supportive care. Await plans. Thank you for this consultation. We will follow with you. [place], [place] REPORT OF CONSULTATION NAME: KARTHIKEYAN MIDDLETON UNIT #: [id number] ROOM: 425 DOCTOR: TUSHAR MATTHEWS MD BIRTHDATE: [birth year] TUSHAR MATTHEWS MD CM:CONSTR:REPORT OF CONSULTATION 1357 12/03/17 0035 interface
--- NOTE | ~2017-12-01 | PR ---
[place], [place] PROGRESS NOTE [id number] UN[facility] #: [id number] ROOM: 425 DOCTOR: MELISSA CORTES MD BIRTHDATE: [birth year] DOS: 12/03/2017 SUBJECTIVE: The patient is doing fine without any complaint. She is more awake and alert. OBJECTIVE: VITAL SIGNS: Blood pressure is 126/58, pulse of 60, respirations 18, temperature 98.6. LUNGS: Clear. HEART: Regular. ABDOMEN: Obese. EXTREMITIES: Without edema. LABORATORY DATA: White cell count is normal at 8.1, hemoglobin 8.7, hematocrit 28.7. BMP: Glucose 238, BUN 41, creatinine 4.79. Electrolytes: Sodium 127, potassium 5.9. ASSESSMENT AND PLAN: 1. The patient presents with nausea and abdominal pain, possibly gastroparesis. Restart Reglan at a lower dose as advised by Renal. 2. End-stage renal failure, on dialysis. She did have it yesterday. 3. Chronic hypokalemia, possibly from poor diet. 4. Increased somnolence, which seems to have resolved after the medicines were changed. We will plan to discharge her to long term today. MELISSA CORTES MD CM:PNTRANS [phone] MELISSA CORTES MD 12/03/17 1012 interface
--- NOTE | ~2017-12-01 | DS ---
[place], [place] DISCHARGE SUMMARY NAME: [facility]AN MID[facility]LETON [id number] UNIT #: [id number] ROOM: 425 DOCTOR: MELISSA CORTES MD BIRTHDATE: [birth year] DOS: 12/03/2017 DIAGNOSES: 1. End-stage renal failure, on dialysis. 2. Chronic hypokalemia from noncompliance, poor insight to medical problems and lack of good diet. 3. Chronic pain from peripheral neuropathy. 4. Type 2 diabetes mellitus, poorly controlled. 5. Recent history of osteomyelitis of the left ankle, on antibiotics still December 16. 6. Chronic respiratory failure on BiPAP. This is hypocapnic, possibly from increased somnolence from multiple pain medications. 7. Hypothyroidism. 8. Benign hypertension. 9. Gastroparesis, requiring Reglan. MEDICATIONS ON DISCHARGE: Coreg 6.25 twice a day, calcium acetate 667 three times a day, Pepcid 20 daily, Dextrose and Glucagon as needed for hypoglycemia, Xalatan eye drops at bedtime 1 drop OS, ascorbic acid 500 b.i.d., Lyrica 100 b.i.d., Lispro insulin 4 units subcutaneous and a.c., vitamin D 50,000 once a week, Proventil HFA 2 puffs twice a day p.r.n., ____ p.r.n. to the mouth, breathing treatments, DuoNeb q. 4 hours, brimonidine eyedrops 1 drop q. 8 hours OU, Levemir 30 units twice a day, timolol 1 drop OU q. 8 hours, sertraline 50 daily, metoclopramide 5 q.i.d., vancomycin 1 g Saturday, Saturday and Saturday, cefazolin 2 grams Saturday, Saturday and Saturday, Flagyl 250 t.i.d. for 7 more days, Percocet 7.5 q. 6 hours, and lorazepam 1 mg q.6 hours p.r.n., Levothyroxine 50 mcg daily, and liothyronine 5 mcg daily. HOSPITAL COURSE: This patient is 52 years old, comes in with complaints of nausea and emesis. After admission, the patient did tell us that she is no longer on Reglan. This most likely is responsible for her nausea because she does have chronic gastroparesis from diabetes. Reglan was restarted. Zofran was given for p.r.n. nausea. She also appeared to be increasingly somnolent and would discontinue the Lyrica and Requip. The Coreg has been changed to 6.25 twice a day rather than 12.5 daily. Vancomycin, cefazolin and Flagyl have been continued along with breathing treatments. White cell count was 16,000 on admission. The wounds on her abdomen as well as on her foot are all mostly dry. No evidence of any acute infection was seen. Today, the patient is fairly stable. The hypokalemia is a chronic problem. She has received polarizing treatment on admission. Unfortunately, the patient does not watch her diet and orders food out, which most likely is responsible for chronic hypokalemia. I advised the patient to watch her diet. The patient is to be followed by Dr. Chin at the alf. Diet should be strict ADA and also very strict renal 2 gram sodium diet. [place], [place] DISCHARGE SUMMARY NAME: KARTHIKEYAN MIDDLETON UNIT #: [id number] ROOM: 425 DOCTOR: MELISSA CORTES MD BIRTHDATE: [birth year] MELISSA CORTES MD CM:CLIFTON MELISSA CORTES MD 12/03/17 0951 interface
--- NOTE | ~2017-12-01 | PR ---
[place], [place] PROGRESS NOTE NAME: KARTHIKEYAN MIDDLETON UNIT #: [id number] ROOM: 425 DOCTOR: MELISSA CORTES MD BIRTHDATE: [birth year] DOS: 12/02/2017 NO DICTATION MELISSA CORTES MD CM:PNTRANS [phone] MELISSA CORTES MD 12/02/17 1607 interface
[2017-12-01 13:53] VITALS: BP 165/71
[2017-12-01 15:31] LABS: ALBUMIN 3.3 gm/dl (3.1-4.5); CREATININE 5.86 mg/dL (0.55-1.02)
[2017-12-01 15:36] LABS: POTASSIUM 6.5 mmol/L (3.5-5.1)
[2017-12-01 16:16] LABS: HEMATOCRIT 29.5 % (37.0-47.0); HEMOGLOBIN 8.6 g/dl (12.0-16.0); MEAN CELL VOLUME 98.3 fl (81.0-99.0); MEAN CORPUSCULAR HGB 28.7 pg (27.0-31.0); MEAN CORPUSCULAR HGB CONC 29.2 g/dl (33.0-37.0); MEAN PLATELET VOLUME 10.5 fl (9.6-12.3); NUCLEATED RED BLOOD CELL 0.1 10*3/uL (0.0-0.0); NUCLEATED RED BLOOD CELL 0.4 % (0.0-0.0); PLATELET COUNT AUTOMATED 270 10*3/uL (130-400); RED CELL DISTRI WIDTH 18.9 % (0-14.5)
[2017-12-01 16:21] LABS: ACT PARTIAL THROMBO TIME 28.1 SECONDS (20.8-31.5); INTERNATIONAL NORM RATIO 1.1 (2.0-3.5)
[2017-12-01 16:31] LABS: BASOPHILS 1 % (0-1); TOTAL CELLS COUNTED 100 #CELLS
[2017-12-01 16:32] LABS: PLATELET SUFFICIENCY NORMAL (NORMAL); POLYCHROMASIA SLIGHT
[2017-12-01 16:33] LABS: TARGET CELLS FEW
[2017-12-01 16:59] VITALS: BP 148/68
[2017-12-01 19:00] VITALS: BP 142/68
[2017-12-01 19:14] VITALS: BP 136/66
[2017-12-01] MEDS ORDERED: PERCOCET 7.5-31 EACH PO (19:41)
[2017-12-01] MEDS ORDERED: ATIVAN1 MG PO (19:41)
[2017-12-01 20:00] VITALS: BP 136/66
[2017-12-01 21:08] LABS: ALBUMIN 3.1 gm/dl (3.1-4.5); CREATININE 6.12 mg/dL (0.55-1.02); TOTAL PROTEIN 8.4 gm/dL (6.4-8.2)
[2017-12-02] VITALS: BP 115/58
[2017-12-02 08:00] VITALS: BP 108/70
[2017-12-02 16:00] VITALS: BP 163/83
[2017-12-02 20:00] VITALS: BP 133/71
[2017-12-03] VITALS: BP 141/56
[2017-12-03 06:46] LABS: BASO % 0.4 % (0.0-1.0); EOS # 0.3 10*3/uL (0.0-0.4); EOS % 3.2 % (1.0-4.0); HEMATOCRIT 28.7 % (37.0-47.0); HEMOGLOBIN 8.7 g/dl (12.0-16.0); LYMPH # 0.8 10*3/uL (1.3-4.4); MEAN CORPUSCULAR HGB 29.7 pg (27.0-31.0); MEAN CORPUSCULAR HGB CONC 30.3 g/dl (33.0-37.0); MONO # 1.3 10*3/uL (0.1-1.0); MONO % 16.4 % (3.0-9.0); NEUT # 5.6 10*3/uL (2.3-7.9); NEUT % 68.8 % (47.0-73.0); NUCLEATED RED BLOOD CELL 0.4 % (0.0-0.0); PLATELET COUNT AUTOMATED 273 10*3/uL (130-400); RED BLOOD COUNT 2.93 10*6/uL (4.10-5.10); RED CELL DISTRI WIDTH 18.8 % (0-14.5); WHITE BLOOD COUNT 8.1 10*3/uL (4.8-10.8)
[2017-12-03 07:02] LABS: CREATININE 4.79 mg/dL (0.55-1.02); POTASSIUM 5.9 mmol/L (3.5-5.1)
[2017-12-03 08:00] VITALS: BP 126/58; BP 152/78
[2017-12-03] MEDS ORDERED: COREG6.25 MG PO (08:58)
[2017-12-03] MEDS ORDERED: METOCLOPRAMIDE10 M1 PO (09:02)
[2017-12-06] MEDS ORDERED: CYMBALTA60 MG PO (03:09)
[2017-12-06] MEDS ORDERED: LEVOFLOXACIN500 MG PO (03:13)
[2017-12-06] MEDS ORDERED: METOCLOPRAMIDE H5 M1 PO (03:15)
[2017-12-06] MEDS ORDERED: VANCOMYCIN HYDRO1 GM IV (08:13)
[2017-12-06] MEDS ORDERED: CEFAZOLIN2 GM/10 ML IV (08:14)
[2017-12-06] MEDS ORDERED: ATIVAN1 MG PO (08:16)
== END 2017-12-03 11:45 | DRG 73 ==
LOC: ED 13:50 → 4E 18:16 → EDHOLD 18:16 → 4E 19:17
PROVIDERS: Internal Medicine; Physician Assistant
PROC: 5A1D70Z Performance of Urinary Filtration, Intermittent, Less than 6 Hours Per Day (ICD-10-PCS; principal; 2017-12-02)
DX: E11.43 Type 2 diabetes mellitus with diabetic autonomic (poly)neuropathy (principal); J18.9 Pneumonia, unspecified organism; I13.2 Hypertensive heart and chronic kidney disease with heart failure and with stage 5 chronic kidney disease, or end stage renal disease; J96.10 Chronic respiratory failure, unspecified whether with hypoxia or hypercapnia; L89.613 Pressure ulcer of right heel, stage 3; I50.30 Unspecified diastolic (congestive) heart failure; N18.6 End stage renal disease; E87.1 Hypo-osmolality and hyponatremia; Z68.41 Body mass index [BMI] 40.0-44.9, adult; K31.84 Gastroparesis; E11.40 Type 2 diabetes mellitus with diabetic neuropathy, unspecified; E87.5 Hyperkalemia; E11.65 Type 2 diabetes mellitus with hyperglycemia; Z89.439 Acquired absence of unspecified foot; F17.210 Nicotine dependence, cigarettes, uncomplicated; D72.829 Elevated white blood cell count, unspecified; G89.4 Chronic pain syndrome; E66.9 Obesity, unspecified; F41.9 Anxiety disorder, unspecified; J44.9 Chronic obstructive pulmonary disease, unspecified; E78.5 Hyperlipidemia, unspecified; D63.8 Anemia in other chronic diseases classified elsewhere; R10.9 Unspecified abdominal pain; E03.9 Hypothyroidism, unspecified; Z88.8 Allergy status to other drugs, medicaments and biological substances; Z91.041 Radiographic dye allergy status; Z91.013 Allergy to seafood; Z79.899 Other long term (current) drug therapy; Z79.4 Long term (current) use of insulin; Z90.49 Acquired absence of other specified parts of digestive tract; Z83.3 Family history of diabetes mellitus; Z99.2 Dependence on renal dialysis; Z80.8 Family history of malignant neoplasm of other organs or systems; Z84.89 Family history of other specified conditions

== ENCOUNTER 2018-01-13 22:43 | Inpatient (IN) | payer MEDICARE, MEDICAID ==
[~2018-01-13] VITALS: Ht 162.5 cm; Wt 102.3 kg
--- NOTE | ~2018-01-13 | WRIGHTHP ---
[place], [place] PATIENT HISTORY AND PHYSICAL EXAM NAME: KARTHIKEYAN MIDDLETON [facility] #: [id number] UNIT #: [id number] ROOM: 530 DOCTOR: MAIA AGUILAR MD BIRTHDATE: [birth year] DOS: 01/14/2018 HISTORY OF PRESENT ILLNESS: The patient is a 52-year-old female with a past medical history of: 1. Chronic kidney failure, on hemodialysis. 2. Chronic hyperkalemia from poor dietary compliance. 3. Advanced adult failure to thrive with recurrent admissions to the hospital. 4. COPD. 5. Type 2 diabetes mellitus, insulin requiring, uncontrolled. 6. Poor compliance with treatment. 7. Left foot infection with ESBL. The patient finished antibiotics. 8. Chronic pain syndrome with opioid and benzodiazepine seeking behavior. 9. Diabetic gastroparesis. 10. Hypothyroidism. 11. Benign essential hypertension. 12. History of substance abuse in the past. The patient presented to the Emergency Department with increasing complaints of abdominal pains and nausea, vomiting yesterday. The patient was found to have severe leukocytosis on evaluation in the Emergency Department with white cell count elevated to 24,500 and a left shift. After admission, the patient is feeling better and Infectious Disease specialist has evaluated her and not been able to figure out the source of infection. The patient is considered to be sterile including her wound on the foot but has serosanguineous discharge without any significant signs of infection. SYSTEMS REVIEW: RESPIRATORY: No increasing shortness of breath. GASTROINTESTINAL: The patient has chronic recurrent nausea, vomiting and diabetic gastroparesis. FAMILY HISTORY: Noncontributory. HOME MEDICATIONS: Insulin, nystatin, albuterol, Atrovent, meropenem, latanoprost eyedrops, brimonidine eyedrops, timolol eyedrops, Tylenol, vitamin C, calcium acetate, Coreg, vitamin D, Cymbalta, Pepcid, hydrocodone, levothyroxine, lorazepam, metoclopramide, Lyrica, senna, Dulcolax, insulin, sennoside, Lyrica, Cytomel, lorazepam, metoclopramide. FAMILY HISTORY: Noncontributory. SOCIAL HISTORY: Denies smoking cigarettes, alcohol and drug abuse. FAMILY HISTORY: Noncontributory. PHYSICAL EXAMINATION: GENERAL: Alert and oriented x 3, morbidly obese. HEENT AND NECK: Extraocular movements are intact. Sclerae are anicteric. Oral mucosa is moist and clean. No obvious facial weakness. Neck is supple without [place], [place] PATIENT HISTORY AND PHYSICAL EXAM NAME: KARTHIKEYAN MIDDLETON [facility] #: [id number] UNIT #: [id number] ROOM: [facility] DOCTOR: MAIA AGUILAR MD BIRTHDATE: [birth year] any lymphadenopathy. No thyromegaly. No JVD. No carotid arterial bruits. LUNGS: Clear to auscultation. No wheezing. No rhonchi. CARDIOVASCULAR SYSTEM: Heart rate is regular in rate and rhythm. S1 and S2 normally audible. No significant murmur or any other abnormal cardiac sounds. ABDOMEN: Soft, nontender. No obvious organomegaly. Bowel sounds are present. No obvious herniation. Some discomfort on abdominal exam in the epigastric area. EXTREMITIES: Without significant cyanosis or edema. Warm to touch. Serosanguinous draining wound on the distal left foot. CENTRAL NERVOUS SYSTEM: Alert and oriented x 3. Cranial nerves II-XII are intact. Speech is normal. The patient is able to move all extremities. Normal muscle strength. Deep tendon reflexes are equal on both sides. Plantars were downgoing. LABORATORY DATA: Wound cultures have been pending. CT of the abdomen and pelvis did not show any acute abnormality. Chest x-ray showed bibasilar patchy atelectasis. White cell count of 24,500, hemoglobin 10.3. BUN and creatinine 36 and 4.7. Blood sugar 152, potassium 5.5. IMPRESSION: 1. The patient has diabetic gastroparesis with recurrent vomiting to be kept on hydration with normal saline and Reglan and followed closely. 2. Severe leukocytosis from uncertain etiology. The patient evaluated by Infectious Disease specialist and no further recommendations were given. Considering patient has very high white cell count, I will repeat it tomorrow and also check her urine for infection and use straight catheterization if necessary. 3. Uncontrolled type 2 diabetes mellitus. Blood sugars are being monitored and so far reasonably controlled. 4. Chronic constipation, treated with sennoside. 5. Generalized anxiety disorder, treated with lorazepam as needed. 6. Chronic pain syndrome and chronic lower back and limb pains. The patient continued on hydrocodone. 7. Diabetic gastroparesis, to be continued on treatment with metoclopramide. Continue eyedrops for glaucoma. 8. Generalized anxiety disorder, being treated with lorazepam as needed. 9. Type 2 diabetes mellitus, insulin requiring. Insulin was continued. Blood sugars to be monitored and controlled. The patient kept on no-concentrated sweet diet. 10. Left foot wound with serosanguineous discharge and no clearcut signs of infection. 11. Severe leukocytosis, white cell counts to be repeated tomorrow morning, uncertain etiology. [place], [place] PATIENT HISTORY AND PHYSICAL EXAM NAME: KARTHIKEYAN MIDDLETON UNIT #: [id number] ROOM: [facility] DOCTOR: MAIA AGUILAR MD BIRTHDATE: [birth year] MAIA AGUILAR MD CM:HISPHYS:PATIENT HISTORY AND PHYSICAL EXAMINATION [id number] MAIA AGUILAR MD 01/27/18 1008 interface
--- NOTE | ~2018-01-13 | EKG ---
[place], [place] ELECTROCARDIOGRAM REPORT NAME: KARTHIKEYAN MIDDLETON UNIT #: [id number] ROOM: 530 DOCTOR: EPIPHANY DRAFT REPORT BIRTHDATE: [birth year] 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
--- NOTE | ~2018-01-13 | PN ---
[place], [place] PROGRESS NOTE NAME: KARTHIKEYAN MIDDLETON UNIT #: [id number] ROOM: 530 DOCTOR: ERIKA MOSES DPM BIRTHDATE: [birth year] DATE: 01/15/18 ADDENDUM TO RESIDENT REPORT: I rounded with the resident and concur with their diagnosis and treatment as documented by the resident. ERIKA MOSES DPM CM:PNTRANS 9 00 ERIKA MOSES DPM 03/12/181600 KRYSTYNA CAMPBELL MIS.LLR
--- NOTE | ~2018-01-13 | PR ---
[place], [place] PROGRESS NOTE NAME: KARTHIKEYAN MIDDLETON UNIT #: [id number] ROOM: 530 DOCTOR: MAIA AGUILAR MD BIRTHDATE: [birth year] DOS: 01/15/2018 SUBJECTIVE: The patient is feeling somewhat better. Nausea and abdominal pains are improving. OBJECTIVE: VITAL SIGNS: Blood pressure 159/82, heart rate 76 beats per minute, breathing 20 times per minute, temperature 98 degrees Fahrenheit. GENERAL APPEARANCE: The patient is alert and oriented x 3, in no visible distress. Obesity. HEENT AND NECK: Exam within normal limits. CARDIOVASCULAR SYSTEM: Heart rate is regular in rate and rhythm. S1 and S2 normally audible. LUNGS: Clear to auscultation. ABDOMEN: Soft, nontender. No obvious organomegaly. Bowel sounds are present. EXTREMITIES: Left foot wound with serosanguineous discharge. IMPRESSION: 1. The patient has diabetic gastroparesis, nausea, vomiting, which is recurrent being hydrated with normal saline and treated with Reglan. 2. Severe leukocytosis has improved. White cell count has come to 12,800. 3. Type 2 diabetes mellitus. Blood sugars being monitored and treated. 4. Chronic constipation, treated with sennoside. The patient moving bowels. 5. Generalized anxiety disorder, treated with lorazepam as needed. 6. Chronic pain syndrome and chronic lower back pains and limb pains. The patient continued on Percocet. 7. Generalized anxiety disorder, treated with lorazepam as needed. 8. Left foot wound, which has been treated with antibiotics. No signs of infection anymore. MAIA AGUILAR MD CM:PNTRANS [phone] MAIA AGUILAR MD 01/16/18 0023 interface
--- NOTE | ~2018-01-13 | DS ---
[place], [place] DISCHARGE SUMMARY NAME: [id number] UNIT #: [id number] ROOM: 530 DOCTOR: MAIA AGUILAR MD BIRTHDATE: [birth year] DOS: 01/16/2018 DISCHARGE DIAGNOSES: 1. The patient is diabetic, gastroparesis with recurrent nausea and vomiting and abdominal pains. 2. Severe leukocytosis, improved. 3. Chronic adult failure to thrive and poor compliance with treatment. 4. Opioids and benzodiazepine seeking behavior. 5. Chronic kidney failure, the patient is on hemodialysis. 6. Chronic hyperkalemia from noncompliance with diet and kidney failure. 7. Recurrent admissions to the hospital because the patient insists on going to the Emergency Department and to the hospital for admissions. 8. Chronic obstructive pulmonary disease. 9. Type 2 diabetes mellitus, insulin requiring. 10. Poor compliance with treatment. 11. Left foot chronic wound with ESBL resolved. Repeat cultures negative during this admission. 12. Hypothyroidism. 13. Benign essential hypertension. 14. History of substance abuse in the past. HOSPITAL COURSE: 1. The patient again insisting on going to the Emergency Department, complaining of abdominal pain, nausea and vomiting and she was admitted for severe leukocytosis, which resolved without any antibiotics. The patient was treated with Reglan, the dose need to be increased to 10 mg 3 times a day. The patient's symptoms improved. She gets chronic and recurrent nausea and vomiting from this problem related to poorly controlled diabetes mellitus. 2. Uncontrolled type 2 diabetes mellitus from poor compliance with diet. Blood sugars are monitored and treated. 3. Diabetic gastroparesis to be treated with increased dose of Reglan. 4. Chronic constipation, treated with sennoside. 5. Chronic pain syndrome, chronic complains of lower back and limb pains, treated with opioids. 6. Generalized anxiety disorder, treated and controlled with lorazepam. 7. Left foot wound with serosanguineous discharge. No more signs of infection anymore, was not treated with antibiotics and followed by Podiatry and Infectious Disease specialists. 8. Severe leukocytosis, resolved without antibiotics. LABORATORY DATA: Wound cultures were negative. Urine cultures were negative. White cell count of 9700 now, hemoglobin 9.8. Blood and urine cultures were negative. DISCHARGE MANAGEMENT: Pepcid 20 mg a day, Cymbalta 60 mg a day, Cytomel 10 mg 2 tablets daily, levothyroxine 50 mcg daily, Coreg 6.25 mg b.i.d., sennoside 8.6 mg at bedtime, latanoprost eyedrops 1 drop at bedtime, metoclopramide 10 mg q.i.d., Dulcolax p.r.n., pregabalin 100 mg b.i.d., Vicodin every 6 hours p.r.n., nystatin powder every 8 hours as needed. [place], [place] DISCHARGE SUMMARY NAME: KARTHIKEYAN MIDDLETON UNIT #: [id number] ROOM: [facility] DOCTOR: LAUREN BERNAL,MAIA Gould BIRTHDATE: [birth year] MAIA AGUILAR MD CM:CLIFTON [phone] MAIA AGUILAR MD 01/16/18 2014 interface
[~2018-01-13 22:43] MED LIST changes: +ATIVAN1 MG PO; +CEFAZOLIN2 GM/10 ML IV; +COREG6.25 MG PO; +CYMBALTA60 MG PO; +LEVOFLOXACIN500 MG PO; +METOCLOPRAMIDE H5 M1 PO; +PERCOCET 7.5-31 EACH PO; +VANCOMYCIN HYDRO1 GM IV
[2018-01-13 22:44] VITALS: BP 158/91
[2018-01-13 23:30] VITALS: BP 125/56
[2018-01-13 23:43] LABS: HEMATOCRIT 33.2 % (37.0-47.0); HEMOGLOBIN 10.3 g/dl (12.0-16.0); MEAN CELL VOLUME 90.7 fl (81.0-99.0); MEAN CORPUSCULAR HGB 28.1 pg (27.0-31.0); MEAN PLATELET VOLUME 10.5 fl (9.6-12.3); NUCLEATED RED BLOOD CELL 0.1 10*3/uL (0.0-0.0); NUCLEATED RED BLOOD CELL 0.3 % (0.0-0.0); PLATELET COUNT AUTOMATED 211 10*3/uL (130-400); RED BLOOD COUNT 3.66 10*6/uL (4.10-5.10); RED CELL DISTRI WIDTH 18.2 % (0-14.5); WHITE BLOOD COUNT 24.5 10*3/uL (4.8-10.8)
[2018-01-13 23:59] LABS: ALBUMIN 3.4 gm/dl (3.1-4.5); CREATININE 4.73 mg/dL (0.55-1.02); POTASSIUM 5.5 mmol/L (3.5-5.1); TOTAL PROTEIN 8.8 gm/dL (6.4-8.2)
[2018-01-14 00:10] VITALS: BP 130/72
[2018-01-14 00:14] LABS: PLATELET SUFFICIENCY NORMAL (NORMAL); POLYCHROMASIA SLIGHT; TOTAL CELLS COUNTED 100 #CELLS
[2018-01-14 02:20] VITALS: BP 127/50
[2018-01-14] MEDS ORDERED: MEROPENEM500 M1 IV (04:21)
[2018-01-14] MEDS ORDERED: ATROVENT HFA12.9 GM INH (04:22)
[2018-01-14] MEDS ORDERED: NORCO 5-325 TA1 EACH PO (04:23)
[2018-01-14] MEDS ORDERED: SENNO8.6 MG PO (04:25)
[2018-01-14 08:00] VITALS: BP 136/66
[2018-01-14 16:00] VITALS: BP 131/64
[2018-01-14 18:58] LABS: BILIRUBIN 1+ (NEGATIVE); BLOOD 3+ (NEGATIVE); CLARITY TURBID (CLEAR); COLOR YELLOW (YELLOW); GLUCOSE NEGATIVE (NEGATIVE); KETONE NEGATIVE (NEGATIVE); LEUKO ESTERASE 3+ (NEGATIVE); NITRITE NEGATIVE (NEGATIVE); UROBILINOGEN 0.2 E.U./dl (0.2-1.0)
[2018-01-14 19:10] LABS: BACTERIA 2+; WBC TNTC wbc/hpf (0-5)
[2018-01-14 20:00] VITALS: BP 155/81; BP 158/82
[2018-01-15] VITALS: BP 159/82
[2018-01-15 06:36] LABS: BASO # 0.1 10*3/uL (0.0-0.1); BASO % 0.6 % (0.0-1.0); EOS # 0.6 10*3/uL (0.0-0.4); EOS % 4.4 % (1.0-4.0); HEMATOCRIT 31.7 % (37.0-47.0); HEMOGLOBIN 9.6 g/dl (12.0-16.0); LYMPH # 1.3 10*3/uL (1.3-4.4); LYMPH % 9.7 % (27.0-41.0); MEAN CORPUSCULAR HGB 28.4 pg (27.0-31.0); MEAN CORPUSCULAR HGB CONC 30.3 g/dl (33.0-37.0); MEAN PLATELET VOLUME 10.8 fl (9.6-12.3); MONO # 1.4 10*3/uL (0.1-1.0); MONO % 11.1 % (3.0-9.0); NEUT # 9.5 10*3/uL (2.3-7.9); NEUT % 73.7 % (47.0-73.0); NUCLEATED RED BLOOD CELL 0.1 10*3/uL (0.0-0.0); NUCLEATED RED BLOOD CELL 0.5 % (0.0-0.0); PLATELET COUNT AUTOMATED 178 10*3/uL (130-400); RED BLOOD COUNT 3.38 10*6/uL (4.10-5.10); RED CELL DISTRI WIDTH 18.3 % (0-14.5); WHITE BLOOD COUNT 12.8 10*3/uL (4.8-10.8)
[2018-01-15 06:48] LABS: MEAN CELL VOLUME 93.8 fl (81.0-99.0)
[2018-01-15 08:00] VITALS: BP 122/67
[2018-01-15 08:01] LABS: ALBUMIN 3.3 gm/dl (3.1-4.5); CREATININE 6.2 mg/dL (0.55-1.02); POTASSIUM 5.9 mmol/L (3.5-5.1); TOTAL PROTEIN 8.7 gm/dL (6.4-8.2)
[2018-01-15 12:00] VITALS: BP 100/50
[2018-01-15 12:45] VITALS: BP 114/70
[2018-01-15 16:00] VITALS: BP 106/52
[2018-01-15 20:00] VITALS: BP 141/57
[2018-01-16] VITALS: BP 138/74
[2018-01-16 06:37] LABS: HEMATOCRIT 33.3 % (37.0-47.0); HEMOGLOBIN 9.8 g/dl (12.0-16.0); MEAN CELL VOLUME 94.6 fl (81.0-99.0); MEAN CORPUSCULAR HGB 27.8 pg (27.0-31.0); MEAN CORPUSCULAR HGB CONC 29.4 g/dl (33.0-37.0); MEAN PLATELET VOLUME 11.1 fl (9.6-12.3); NUCLEATED RED BLOOD CELL 0.2 10*3/uL (0.0-0.0); NUCLEATED RED BLOOD CELL 1.6 % (0.0-0.0); PLATELET COUNT AUTOMATED 202 10*3/uL (130-400); RED BLOOD COUNT 3.52 10*6/uL (4.10-5.10); RED CELL DISTRI WIDTH 18.8 % (0-14.5); WHITE BLOOD COUNT 9.7 10*3/uL (4.8-10.8)
[2018-01-16 07:22] LABS: BASOPHILS 2 % (0-1); TOTAL CELLS COUNTED 100 #CELLS
[2018-01-16 07:23] LABS: PLATELET SUFFICIENCY NORMAL (NORMAL)
[2018-01-16 08:00] VITALS: BP 150/80
[2018-03-22] MEDS ORDERED: KEFLEX500 M1 PO (01:34)
== END 2018-01-16 17:15 | DRG 871 ==
LOC: ED 22:43 → 5E 01-14 02:07
PROVIDERS: Internal Medicine; Internal Medicine Nephrology; Nurse Practitioner Family
PROC: 5A1D70Z Performance of Urinary Filtration, Intermittent, Less than 6 Hours Per Day (ICD-10-PCS; principal; 2018-01-14)
PROC: 5A1D70Z Performance of Urinary Filtration, Intermittent, Less than 6 Hours Per Day (ICD-10-PCS; 2018-01-15)
DX: A41.9 Sepsis, unspecified organism (principal); N18.6 End stage renal disease; E87.1 Hypo-osmolality and hyponatremia; I13.2 Hypertensive heart and chronic kidney disease with heart failure and with stage 5 chronic kidney disease, or end stage renal disease; M86.9 Osteomyelitis, unspecified; E11.43 Type 2 diabetes mellitus with diabetic autonomic (poly)neuropathy; K31.84 Gastroparesis; R62.7 Adult failure to thrive; E87.5 Hyperkalemia; J44.9 Chronic obstructive pulmonary disease, unspecified; E11.22 Type 2 diabetes mellitus with diabetic chronic kidney disease; E03.9 Hypothyroidism, unspecified; I12.9 Hypertensive chronic kidney disease with stage 1 through stage 4 chronic kidney disease, or unspecified chronic kidney disease; Z16.12 Extended spectrum beta lactamase (ESBL) resistance; E11.65 Type 2 diabetes mellitus with hyperglycemia; K59.09 Other constipation; G89.4 Chronic pain syndrome; M54.5 Low back pain; F41.1 Generalized anxiety disorder; E11.42 Type 2 diabetes mellitus with diabetic polyneuropathy; F32.9 Major depressive disorder, single episode, unspecified; I50.9 Heart failure, unspecified; E78.5 Hyperlipidemia, unspecified; E66.01 Morbid (severe) obesity due to excess calories; F17.210 Nicotine dependence, cigarettes, uncomplicated; E11.621 Type 2 diabetes mellitus with foot ulcer; L97.513 Non-pressure chronic ulcer of other part of right foot with necrosis of muscle; D64.9 Anemia, unspecified; E11.69 Type 2 diabetes mellitus with other specified complication; L97.529 Non-pressure chronic ulcer of other part of left foot with unspecified severity; Z90.49 Acquired absence of other specified parts of digestive tract; Z88.8 Allergy status to other drugs, medicaments and biological substances; Z91.041 Radiographic dye allergy status; Z91.013 Allergy to seafood; Z65.8 Other specified problems related to psychosocial circumstances; Z91.11 Patient's noncompliance with dietary regimen; Z99.2 Dependence on renal dialysis; Z79.899 Other long term (current) drug therapy; Z79.4 Long term (current) use of insulin; Z83.3 Family history of diabetes mellitus; Z84.89 Family history of other specified conditions; Z80.0 Family history of malignant neoplasm of digestive organs; Z98.890 Other specified postprocedural states; Z95.828 Presence of other vascular implants and grafts; Z89.429 Acquired absence of other toe(s), unspecified side; Z68.39 Body mass index [BMI] 39.0-39.9, adult

== ENCOUNTER 2018-01-31 16:44 | Emergency (ER) | payer MEDICARE, MEDICAID ==
[~2018-01-31 16:44] MED LIST changes: +ATROVENT HFA12.9 GM INH; +MEROPENEM500 M1 IV; +SENNO8.6 MG PO
[2018-01-31 16:45] VITALS: BP 130/58
[2018-01-31 17:12] LABS: BASO # 0.1 10*3/uL (0.0-0.1); BASO % 0.5 % (0.0-1.0); EOS # 0.2 10*3/uL (0.0-0.4); EOS % 2.3 % (1.0-4.0); HEMATOCRIT 35.1 % (37.0-47.0); HEMOGLOBIN 10.9 g/dl (12.0-16.0); LYMPH # 0.8 10*3/uL (1.3-4.4); LYMPH % 8.7 % (27.0-41.0); MEAN CELL VOLUME 91.4 fl (81.0-99.0); MEAN CORPUSCULAR HGB 28.4 pg (27.0-31.0); MEAN CORPUSCULAR HGB CONC 31.1 g/dl (33.0-37.0); MEAN PLATELET VOLUME 9.6 fl (9.6-12.3); MONO # 1.4 10*3/uL (0.1-1.0); MONO % 14.3 % (3.0-9.0); NEUT # 7.2 10*3/uL (2.3-7.9); NEUT % 73.9 % (47.0-73.0); PLATELET COUNT AUTOMATED 215 10*3/uL (130-400); RED BLOOD COUNT 3.84 10*6/uL (4.10-5.10); RED CELL DISTRI WIDTH 18.5 % (0-14.5); WHITE BLOOD COUNT 9.7 10*3/uL (4.8-10.8)
[2018-01-31 17:29] LABS: ALBUMIN 3.4 gm/dl (3.1-4.5); CREATININE 3.84 mg/dL (0.55-1.02); POTASSIUM 4.7 mmol/L (3.5-5.1); TOTAL PROTEIN 9.1 gm/dL (6.4-8.2)
[2018-03-22] MEDS ORDERED: KEFLEX500 M1 PO (01:34)
== END 2018-01-31 18:44 | disposition other institution (70) ==
LOC: ED 16:44
PROVIDERS: Nurse Practitioner Family
DX: B34.9 Viral infection, unspecified (principal); I13.2 Hypertensive heart and chronic kidney disease with heart failure and with stage 5 chronic kidney disease, or end stage renal disease; E11.22 Type 2 diabetes mellitus with diabetic chronic kidney disease; N18.6 End stage renal disease; I50.9 Heart failure, unspecified; E11.42 Type 2 diabetes mellitus with diabetic polyneuropathy; G89.29 Other chronic pain; J44.9 Chronic obstructive pulmonary disease, unspecified; E78.5 Hyperlipidemia, unspecified; E66.01 Morbid (severe) obesity due to excess calories; F17.210 Nicotine dependence, cigarettes, uncomplicated; Z91.041 Radiographic dye allergy status; Z91.013 Allergy to seafood; Z79.4 Long term (current) use of insulin; Z79.899 Other long term (current) drug therapy; Z90.49 Acquired absence of other specified parts of digestive tract; Z88.1 Allergy status to other antibiotic agents

== ENCOUNTER 2018-02-13 18:31 | Inpatient (IN) | payer MEDICARE, MEDICAID ==
[~2018-02-13] VITALS: Ht 162.5 cm; Wt 102.6 kg
--- NOTE | ~2018-02-13 | DS ---
[place], [place] DISCHARGE SUMMARY [id number] UN[facility] #: [id number] ROOM: 422 DOCTOR: MAIA AGUILAR MD BIRTHDATE: [birth year] DOS: 02/22/2018 DISCHARGE DIAGNOSES: 1. The patient with positive blood cultures in 4/4 bottles for Staphylococcus epidermidis. Blood cultures through the venous port negative and positive for Enterococcus faecalis, left foot and right foot positive for extended-spectrum beta-lactamases Escherichia coli. Recommended removal of all central lines and trying to salvage the dialysis catheter. 2. Amputation of the fifth digit of the left foot. 3. Advanced adult failure to thrive and chronic osteomyelitis involving both feet. 4. Hypothyroidism. 5. Chronic constipation. 6. Right heel decubitus. 7. Diabetic gastroparesis with recurrent nausea and vomiting. 8. Opioid and benzodiazepine seeking behavior. 9. Chronic kidney failure. The patient on hemodialysis. 10. Chronic hyperkalemia from poor compliance with diet and kidney failure. 11. Chronic obstructive pulmonary disease. 12. Type 2 diabetes mellitus, insulin requiring. 14. History of hypothyroidism. 15. Benign essential hypertension. 16. History of substance abuse with alcohol and cocaine in the past. HOSPITAL COURSE: The patient was admitted to the Emergency Department with positive blood cultures. Infectious disease specialist and hemodialysis performing chip separator were consulted. Infectious Disease specialist recommended removal of all central lines, but later on since this was very difficult and the patient required hemodialysis, we are trying to salvage the hemodialysis catheter and cultures taken through the central line which is the MediPort were negative. Plan is to keep the patient on vancomycin until 03/15/2018 and ertapenem 500 mg daily until 04/03/2018. During her hospital stay, the patient was treated with antibiotics, meropenem and IV vancomycin and she was taken for amputation of the left foot, left fifth digit by the Podiatry. Diabetic gastroparesis with recurrent nausea and vomiting which sometimes the patient relates to her antibiotics and refuses to take them. The patient's nausea and vomiting are reasonably controlled prior to her discharge. Type 2 diabetes mellitus, which is chronic, longstanding and blood sugars are reasonably controlled. Benign essential hypertension. The patient on clonidine and Coreg. Blood pressure is being monitored and within normal range. Severe anxiety disorder, treated with lorazepam, Lyrica and now Haldol as needed. Chronic constipation and opioid-induced constipation, treated with sennoside. [place], [place] DISCHARGE SUMMARY NAME: KARTHIKEYAN MIDDLETON [facility] #: [id number] UNIT #: [id number] ROOM: 422 DOCTOR: MAIA AGUILAR MD BIRTHDATE: [birth year] LABORATORY DATA: Followup blood cultures are negative. Previous blood cultures as mentioned above. MRI of the right foot shows open wound on the plantar aspect of the foot, representing a heel ulcer, possible osteomyelitis. Left foot shows amputation of the fifth ray at the left of the proximal metatarsal and osteomyelitis of the bony stump. Venous Doppler showing no DVT. Arterial Dopplers of lower extremities, no significant stenosis, but diffuse abnormal waveforms consistent with disease or diffuse atherosclerosis. DISCHARGE MANAGEMENT: Give IV vancomycin every 48 hours until 03/15/2018 and ertapenem 500 mg IV daily until 04/03/2018. Followup with Podiatry and Infectious Disease specialist. Vicodin 5/325 every 6 hours p.r.n. for pain, lorazepam 1 mg every 6 hours p.r.n. for anxiety. Haldol 1 mg every hour as needed for anxiety and agitation, not to exceed 5 mg in 24 hours. Lyrica 100 mg b.i.d., Lantus insulin 30 units subcutaneously b.i.d. Senna 8.6 mg daily, Zofran 8 mg every 6 hours sublingual as needed for nausea, vomiting. Bentyl 20 mg every 6 hours. Coreg 6.25 mg b.i.d., calcium acetate 667 mg t.i.d. with meals, clonidine 0.1 mg b.i.d. Wound care. MAIA AGUILAR MD CM:DISCHARG [phone] MAIA AGUILAR MD 03/13/18 1044 interface
--- NOTE | ~2018-02-13 | PR ---
[place], [place] PROGRESS NOTE NAME[id number] UNIT #: [id number] ROOM: 422 DOCTOR: MAIA AGUILAR MD BIRTHDATE: [birth year] DOS: 02/16/2018 SUBJECTIVE: The patient with stomach pains, improved. Generalized severe anxiety, has also improved. OBJECTIVE: GENERAL APPEARANCE: The patient is alert and oriented x 3, in no visible distress. Generalized weakness, obesity. VITAL SIGNS: Blood pressure 115/88, heart rate 78 beats per minute, breathing 20 times per minute, afebrile. HEENT AND NECK: Exam within normal limits. CARDIOVASCULAR SYSTEM: Heart rate is regular in rate and rhythm. S1 and S2 normally audible. LUNGS: Clear to auscultation. ABDOMEN: Soft, nontender. No obvious organomegaly. Bowel sounds are present. EXTREMITIES: Without significant cyanosis or edema. Left toe ulcers and right heel ulcer. IMPRESSION: 1. The patient with positive blood cultures for methicillin-resistant Staphylococcus aureus. She has been scheduled for removal of her MediPort and dialysis catheter. Dr. Schmid, the surgeon is working with the ophthalmic nurse and the ID specialist. 2. Chronic pain syndrome and diabetic peripheral neuropathy with foot ulcers being treated with Vicodin. 3. Severe generalized anxiety, treated with Klonopin and p.r.n. Haldol, has been effective. 4. Chronic kidney failure. The patient remains on hemodialysis. 5. Benign essential hypertension, treated and controlled. 6. Advance adult failure to thrive. We are taking bedsore precautions every 2 hour turning and using the air mattress. 7. Hypothyroidism, treated with thyroid supplements. MAIA AGUILAR MD CM:PNTRANS [phone] MAIA AGIULAR MD 02/17/18129 interface
--- NOTE | ~2018-02-13 | PR ---
[place], [place] PROGRESS NOTE NAME: [id number] UNIT #: [id number] ROOM: 422 DOCTOR: TUSHAR MATTHEWS MD BIRTHDATE: [birth year] DOS: 02/22/2018 NEPHROLOGY FOLLOWUP SUBJECTIVE: The patient was seen and evaluated. She is awake, alert, lying in bed. She is in no acute distress. Denied any major complaints to me. PHYSICAL EXAMINATION: VITAL SIGNS: Temperature 97.8, pulse 70, respiratory rate 20, blood pressure 138/74. HEENT: Shows no JVD. LUNGS: Diminished breath sounds with no wheeze. HEART: S1, S2. No rub. ABDOMEN: Soft, nontender. EXTREMITIES: Had positive 1 to 2+ edema. SKIN: Showed no rash. LABORATORY DATA: Most recent labs from yesterday predialysis showed sodium 133, potassium 7.3, BUN 58, creatinine 6.0, glucose 86, calcium 8.0. IMPRESSION AND PLAN: 1. End-stage renal disease, on hemodialysis o Saturday, Saturday, Saturday. The patient will have dialysis as scheduled on Saturday with fluid removal as tolerated. 2. Anemia of chronic disease. Transfuse as needed. We will give Epogen with dialysis. 3. Diabetes mellitus. Continue supportive care. 4. Sepsis. The patient is on antibiotics. Line changes per ID and the primary service. TUSHAR MATTHEWS MD CM:PNTRANS [phone] TUSHAR MATTHEWS MD 02/23/18 0125 interface
--- NOTE | ~2018-02-13 | PR ---
[place], [place] PROGRESS NOTE NAME: KARTHIKEYAN MIDDLEOTN UNIT #: [id number] ROOM: 422 DOCTOR: MAIA AGUILAR MD BIRTHDATE: [birth year] DOS: 02/17/2018 SUBJECTIVE: The patient is doing about the same. OBJECTIVE: GENERAL APPEARANCE: The patient is alert and oriented x 3, in no visible distress. VITAL SIGNS: Blood pressure 150/80, heart rate 91 beats per minute, breathing 20 times per minute, afebrile. HEENT AND NECK: Exam within normal limits. CARDIOVASCULAR SYSTEM: Heart rate is regular in rate and rhythm. S1 and S2 normally audible. LUNGS: Clear to auscultation. ABDOMEN: Soft, nontender. No obvious organomegaly. Bowel sounds are present. EXTREMITIES: Without significant cyanosis or edema. Except for obesity and left toe wounds and right heel decub. IMPRESSION: 1. The patient with positive blood cultures for gram-positive cocci in pairs and clusters and methicillin-resistant Staphylococcus aureus, at this time, growing Staphylococcus epidermidis, being followed by Infectious Disease specialist and is being recommended removal of dialysis catheter and MediPort remains on vancomycin. 2. Extended-spectrum beta-lactamase Escherichia coli infection of the urine followed by Infectious Disease specialist. 3. Severe generalized anxiety disorder, being treated with lorazepam and p.r.n. Haldol, which will be working well for her. 4. Chronic constipation, controlled with sennoside. 5. Type 2 diabetes mellitus. The patient remains on insulin. Blood sugars have been monitored and treated. 6. End-stage kidney failure. The patient remains on hemodialysis. 7. Chronic pain syndrome and diabetic peripheral neuropathy with foot ulcers being treated with Vicodin as needed for pain. 8. Advance adult failure to thrive. The patient is working with physical therapy using air mattress and taking bedsore precautions including every 2-hour turning. 9. Hypothyroidism. The patient remains on thyroid supplements. [place], [place] PROGRESS NOTE NAME: KARTHIKEYAN MIDDLETON UNIT #: [id number] ROOM: 422 DOCTOR: MAIA AGUILAR MD BIRTHDATE: [birth year] MAIA AGUILAR MD CM:PNTRANS [phone] MAIA AGUILAR MD 02/18/18104 interface
--- NOTE | ~2018-02-13 | WRIGHTHP ---
[place], [place] PATIENT HISTORY AND PHYSICAL EXAM NAME: KARTHIKEYAN MIDDLETON [facility] #: [id number] UNIT #: [id number] ROOM: 422 DOCTOR: MAIA AGUILAR MD BIRTHDATE: [birth year] DOS: 02/13/2018 HISTORY OF PRESENT ILLNESS: The patient is a 52-year-old female with a past medical history of: 1. Diabetic gastroparesis with recurrent nausea and vomiting. 2. Chronic adult failure to thrive and poor compliance with treatment and antibiotics. 3. Opioid and benzodiazepine seeking behavior. 4. Chronic kidney failure. The patient is on hemodialysis. 5. Chronic hyperkalemia from noncompliance with diet and kidney failure. 6. Recurrent admissions to the hospital because the patient insists on going to the Emergency Department and hospital for admission. 7. COPD. 8. Type 2 diabetes mellitus, insulin requiring. 9. Left foot chronic osteomyelitis and chronic wound infection with ESBL. 10. History of hypothyroidism. 11. Benign essential hypertension. 12. History of substance abuse with cocaine in the past and alcohol abuse. The patient again presented to the Emergency Department because her blood cultures were reported to be positive. The patient is already getting IV vancomycin at hemodialysis, which she was refusing. The patient was seen by Patti Gutierres in the ER for positive blood cultures for MRSA and recommended for admission and further management. The patient already had left foot little toe ulcer and left foot surgery and followed by Podiatry. After admission, the patient is complaining of some nausea. No chest pain or shortness of breath. No GI or urinary symptoms. REVIEW OF SYSTEMS: RESPIRATORY: No increasing shortness of breath or wheezing. GASTROINTESTINAL: Recurrent nausea and vomiting. CARDIOVASCULAR: No chest pains or palpitations. FAMILY HISTORY: Noncontributory. SOCIAL HISTORY: The patient is a resident at [facility] for many years, has previous history of drug abuse, nicotine abuse and alcohol abuse. PRESENT MEDICATIONS: IV vancomycin, Vicodin, lorazepam, insulin, sennoside. ALLERGIES: Known allergies to IODINE, ERYTHROMYCIN, CLARITHROMYCIN, SHELLFISH. PHYSICAL EXAMINATION: GENERAL: Alert and oriented x 3, in no visible distress, obese. HEENT AND NECK: Extraocular movements are intact. Sclerae are anicteric. Oral mucosa is moist and clean. No obvious facial weakness. Neck is supple without any lymphadenopathy. No thyromegaly. No JVD. No carotid arterial bruits. LUNGS: Clear to auscultation. No wheezing. No rhonchi. CARDIOVASCULAR SYSTEM: Heart rate is regular in rate and rhythm. S1 and S2 normally audible. No significant murmur or any other abnormal cardiac sounds. [place], [place] PATIENT HISTORY AND PHYSICAL EXAM NAME: KARTHIKEYAN MIDDLETON UNIT #: [id number] ROOM: 422 DOCTOR: MAIA AGUILAR MD BIRTHDATE: [birth year] ABDOMEN: Soft, nontender. No obvious organomegaly. Bowel sounds are present. No obvious herniation. EXTREMITIES: Without significant cyanosis or edema. Warm to touch. Signs of previous bilateral foot surgeries and toe amputation. The patient has right heel decub and left toe ulcers. CENTRAL NERVOUS SYSTEM: Alert and oriented x 3. Cranial nerves II-XII are intact. Speech is normal. The patient is able to move all extremities. Normal muscle strength. Deep tendon reflexes are equal on both sides. Plantars were downgoing. LABORATORY DATA: BUN and creatinine 53 and 5. Normal serum electrolytes. Albumin of 3. Hemoglobin 10.6, white cell count of 12,000, hemoglobin 10.6. IMPRESSION AND PLAN: 1. The patient with chronic left foot and ankle infection and osteomyelitis, which was being treated with IV vancomycin and the patient has a tendency to repeatedly refused vancomycin because of nausea, vomiting, which she generally gets from diabetic gastroparesis. The patient was getting vancomycin at the time of dialysis. I will admit the patient for positive blood cultures for methicillin-resistant staphylococcus aureus and reconsult Infectious Disease specialists who are following her, readjust her treatment before transferring her back to the [facility]. 2. Chronic pain syndrome, diabetic peripheral neuropathy with left foot and right heel ulcers. I will continue her Vicodin as prescribed for pain control. 3. Type 2 diabetes mellitus. Blood sugar is to be monitored and treated. The patient is to be continued on insulin. 4. Chronic hyperkalemia, to be followed by Nephrology who has been consulted for hemodialysis. 5. Chronic kidney failure. The patient remained on hemodialysis and followed by Nephrology. 6. Benign essential hypertension, treated and controlled. 7. Advanced adult failure to thrive. We will take bedsore precautions, turn her every 2 hours and use an air mattress. 8. Hypothyroidism, for which thyroid supplements will be continued. 9. Benign essential hypertension. Blood pressure is to be monitored and treated accordingly. [place], [place] PATIENT HISTORY AND PHYSICAL EXAM NAME: KARTHIKEYAN MIDDLETON UNIT #: [id number] ROOM: [facility] DOCTOR: MAIA AGUILAR MD BIRTHDATE: [birth year] MAIA AGUILAR MD CM:HISPHYS:PATIENT HISTORY AND PHYSICAL EXAMINATION [phone] MAIA AGUILAR MD 02/14/18 1204 interface
--- NOTE | ~2018-02-13 | PR ---
[place], [place] PROGRESS NOTE NAME: KARTHIKEYAN MIDDLETON UNIT #: [id number] ROOM: 422 DOCTOR: MAIA AGUILAR MD BIRTHDATE: [birth year] DOS: 02/19/2018 SUBJECTIVE: The patient with severe generalized anxiety and positive blood cultures, continues to be in the hospital. OBJECTIVE: GENERAL APPEARANCE: The patient is alert and oriented x 3, in no visible distress. VITAL SIGNS: Blood pressure 145/67, heart rate 80 beats per minute, breathing 18 times per minute, afebrile. HEENT AND NECK: Exam within normal limits. CARDIOVASCULAR SYSTEM: Heart rate is regular in rate and rhythm. S1 and S2 normally audible. LUNGS: Clear to auscultation. ABDOMEN: Obesity. Soft, nontender. No obvious organomegaly. Bowel sounds are present. EXTREMITIES: Left toe ulcers. IMPRESSION AND PLAN: 1. The patient has severe generalized anxiety disorder and she demands nursing attention every few minutes during the day and night. Her anxiety is being controlled with lorazepam and Haldol as needed. 2. The patient positive blood cultures for MRSA, being treated with antibiotics and followed by ID. The patient's venous catheters need to be removed, but at the same time, she requires hemodialysis and hemodialysis catheter. 3. Chronic pain syndrome and diabetic peripheral neuropathy, treated with hydrocodone. 4. Advanced adult failure to thrive. The patient working with physical therapy. 5. Hypothyroidism, treated with thyroid supplements. 6. Chronic constipation, treated with sennoside. The patient is moving her bowels. 7. The patient is being followed by Podiatry for right heel decubitus and left toe ulcers. She is going for excision of the left fifth metatarsal and debridement. [place], [place] PROGRESS NOTE NAME: KARTHIKEYAN MIDDLETON UNIT #: [id number] ROOM: 422 DOCTOR: MAIA AGUILAR MD BIRTHDATE: [birth year] MAIA AGUILAR MD CM:PNTRANS [phone] MAIA AGUILAR MD 03/13/18 1045 interface
--- NOTE | ~2018-02-13 | PR ---
[place], [place] PROGRESS NOTE NAME[facility]TON [facility]: [id number] UNIT #: [id number] ROOM: 422 DOCTOR: LAUREN BERNAL,MAIA Gould BIRTHDATE: [birth year] DOS: SUBJECTIVE: The patient overall feeling better. Blood pressure 169/95, heart rate of 90 beats per minute, breathing 18-20 times per minute, afebrile. The patient with positive blood cultures for Staphylococcus epidermidis, being followed and treated by Infectious Disease specialist with IV vancomycin and IV meropenem. The patient needs hemodialysis catheter and MediPort removal, but at the same time, she requires hemodialysis. The patient's librarian is working with the ID specialist on this problem. ASSESSMENT AND PLAN: 1. Severe generalized anxiety disorder, treated with lorazepam as needed and Haldol. 2. Chronic constipation, treated with sennoside. 3. Type 2 diabetes mellitus. Blood sugars were monitored and controlled. 4. End-stage kidney failure. The patient remained on hemodialysis. 5. Chronic pain syndrome and diabetic peripheral neuropathy, treated with hydrocodone. 6. Advance adult failure to thrive. 7. Hypothyroidism, replaced with thyroid supplements. MAIA AGUILAR MD CM:PNTRANS [phone] MAIA AGUILAR MD 02/18/182052 interface
--- NOTE | ~2018-02-13 | PR ---
[place], [place] PROGRESS NOTE NAME: KARTHIKEYAN MIDDLETON UNIT #: [id number] ROOM: 422 DOCTOR: MAIA AGUILAR MD BIRTHDATE: [birth year] DOS: 02/20/2018 SUBJECTIVE: The patient remains about the same. PHYSICAL EXAMINATION: GENERAL APPEARANCE: The patient is alert and oriented x 3, in no visible distress. Moderate obesity. VITAL SIGNS: Blood pressure 133/72, heart rate 81 beats per minute, breathing 18 times per minute, temperature of 99 degrees Fahrenheit. HEENT AND NECK: Exam within normal limits. CARDIOVASCULAR SYSTEM: Heart rate is regular in rate and rhythm. S1 and S2 normally audible. LUNGS: Clear to auscultation. ABDOMEN: Soft, nontender. No obvious organomegaly. Bowel sounds are present. EXTREMITIES: Without significant cyanosis or edema except left toe, ulcers in the left foot and right heel ulcer. DICTATION ENDS HERE MAIA AGUILAR MD CM:PNTRANS [phone] MAIA AGUILAR MD 03/13/18 1055 interface
--- NOTE | ~2018-02-13 | O ---
[place], [place] OPERATIVE NOTE NAME: KARTHIKEYAN MIDDLETON UNIT #: [id number] ROOM: 422 DOCTOR: FILIPE RUBI DPM BIRTHDATE: [birth year] DOS: 02/20/2018 PREOPERATIVE DIAGNOSIS: Chronic ulceration, lateral left foot with osteomyelitis, fifth left metatarsal. POSTOPERATIVE DIAGNOSIS: Chronic ulceration, lateral left foot with osteomyelitis, fifth left metatarsal, pending pathology. PROCEDURE: Resection of remaining fifth right metatarsal with bone biopsy. ESTIMATED BLOOD LOSS: 2 mL SPECIMENS: Bone, fifth left metatarsal. DRAINS: None. PACKING: None. HEAVY TRUCK DRIVER: Dr. Ryan Akhtar ANESTHESIA: LMAC. PROCEDURE DETAILS: The patient was brought to the operating room, placed on the operating table in supine position. Anesthesia administered per Anesthesia Department. Local infiltration of 0.5% Marcaine plain was utilized for local block. The left foot was prepped and draped in usual aseptic manner. There was an open wound noted to the lateral left foot overlying the base of the fifth metatarsal. A 3-cm linear longitudinal incision was made with a 15 blade. The incision was deepened via sharp and blunt dissection to avoid neurovascular structures in the area. There was no deep abscess identified. The remaining fifth right metatarsal bone was identified and was resected in total. Portions of the bone were sent to pathology and also for cultures including gram stain, aerobic, anaerobic, acid fast and fungal cultures. The area was copiously flushed with sterile saline. Primary closure was performed with 2-0 nylon in a vertical mattress stitch manner. Sterile compressive dressing consisting of Adaptic, 4 x 4s, Kerlix, ABD and Emiliano bandage was applied. The patient returned to the nursing floor and resume previous orders and we will follow the patient postoperatively tomorrow. [place], [place] OPERATIVE NOTE NAME: KARTHIKEYAN MIDDLETON UNIT #: [id number] ROOM: 422 DOCTOR: FILIPE RUBI DPM BIRTHDATE: [birth year] FILIPE RUBI DPM CM:OPRECORD:OPERATIVE NOTE 1034 FILIPE RUBI DPDionte 02/27/18 1034 interface
--- NOTE | ~2018-02-13 | EKG ---
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
--- NOTE | ~2018-02-13 | PR ---
[place], [place] PROGRESS NOTE NAME: KARTHIKEYAN MIDDLETON [facility] #: [id number] UNIT #: [id number] ROOM: 422 DOCTOR: FILIPE RUBI DPM BIRTHDATE: [birth year] DOS: 02/22/2018 SUBJECTIVE: The patient was seen for followup of post-excision of fifth metatarsal bone and followup of right heel ulceration. OBJECTIVE: Upon removal of dressings, the right heel ulceration is full thickness. No signs of deep sinus tract. No signs of fluctuance or purulent drainage. The incision site of lateral left foot is well coapted with sutures intact. No signs of fluctuance or abscess. No signs of proximal cellulitis. ASSESSMENT: Postop left foot ulceration, right heel. PLAN: Applied betadine-soaked Adaptic and gauze dressings bilateral, continue daily along with the heel protectors, same orders upon discharge to the senior care. FILIPE RUBI DPM CM:PNTRANS [phone] FILIPE RUBI DPM 02/22/18 1432 interface
--- NOTE | ~2018-02-13 | PR ---
[place], [place] PROGRESS NOTE NAME: KARTHIKEYAN MIDDLETON UNIT #: [id number] ROOM: 422 DOCTOR: MAIA AGUILAR MD BIRTHDATE: [birth year] DOS: 02/15/2018 SUBJECTIVE: The patient is complaining of some epigastric pains now. Earlier on, she was extremely anxious and she settled down after she was given intravenous Haldol. OBJECTIVE: VITAL SIGNS: Blood pressure 148/68, heart rate 77 beats per minute, breathing 16 times per minute, temperature 98.4 degrees Fahrenheit. GENERAL APPEARANCE: The patient is alert and oriented x 3, in no visible distress. HEENT AND NECK: Exam within normal limits. CARDIOVASCULAR SYSTEM: Heart rate is regular in rate and rhythm. S1 and S2 normally audible. LUNGS: Clear to auscultation. ABDOMEN: Soft, nontender. No obvious organomegaly. Bowel sounds are present. Has obesity. EXTREMITIES: Without significant cyanosis or edema. Toe amputation and right heel wound. IMPRESSION AND PLAN: 1. The patient has significant history of diabetic gastroparesis and stomach pains. I am starting her on Bentyl for symptomatic relief. The patient also getting ondansetron. If symptoms continue, I will consult Dr. Correa, the gyroscopic engineering technician to see her. The patient with methicillin resistant Staphylococcus aureus bacteremia and positive blood cultures, is getting her hemodialysis catheter and MediPort removed as requested by Infectious Disease specialist. 2. Chronic pain syndrome, diabetic peripheral neuropathy and foot ulcers, being treated with Vicodin. 3. Type 2 diabetes mellitus. Blood sugars being monitored and treated. 4. Chronic hyperkalemia related to poor dietary compliance, being followed and treated. 5. Chronic kidney failure. The patient remains on hemodialysis. 6. Benign essential hypertension, treated and controlled. 7. Advanced adult failure to thrive. We are taking bedsore precautions. 8. Hypothyroidism, for which patient takes thyroid supplements. 9. Benign essential hypertension, treated and controlled. [place], [place] PROGRESS NOTE NAME: KARTHIKEYAN MIDDLETON UNIT #: [id number] ROOM: 422 DOCTOR: MAIA AGUILAR MD BIRTHDATE: [birth year] MAIA AGUILAR MD CM:MIRIAM [phone] MAIA AGUILAR MD 02/15/18 1823 interface
--- NOTE | ~2018-02-13 | PR ---
[place], [place] PROGRESS NOTE NAME[facility] [id number] UNIT #: [id number] ROOM: 422 DOCTOR: LAUREN BERNAL,MAIA Gould BIRTHDATE: [birth year] DOS: OBJECTIVE: VITAL SIGNS: The patient's blood pressure 144/58, heart rate 73 beats per minute, breathing normally, afebrile. Obesity with bilateral foot infection, especially left toes and amputation of the fifth digit of the left toe. The patient remains on vancomycin and meropenem and infectious disease specialist following. ASSESSMENT AND PLAN: 1. Type 2 diabetes mellitus with reasonably controlled blood sugars. 2. End-stage kidney failure. The patient remained on hemodialysis. The patient had hyperkalemia, which is being managed by Nephrology. 3. Advanced adult failure to thrive and poor prognosis. 4. Positive blood cultures with Staphylococcus epidermidis. Infectious Disease specialist considering catheter infection, which is being treated with antibiotics. 5. Hypothyroidism, treated with supplements. 6. Chronic constipation, treated and controlled with sennoside. 7. Right heel decubitus and left toe ulcers are being treated along with left fifth metatarsal amputation by manager local. MAIA AGUILAR MD CM:JO-ANNTRANS [phone] MAIA AGUILAR MD 02/22/18311 interface
[2018-02-13 18:32] VITALS: BP 166/86
[2018-02-13 19:13] LABS: BASO # 0.1 10*3/uL (0.0-0.1); BASO % 0.3 % (0.0-1.0); EOS # 0.5 10*3/uL (0.0-0.4); EOS % 3.1 % (1.0-4.0); HEMATOCRIT 36.5 % (37.0-47.0); HEMOGLOBIN 11.4 g/dl (12.0-16.0); LYMPH # 0.9 10*3/uL (1.3-4.4); LYMPH % 6.5 % (27.0-41.0); MEAN CELL VOLUME 89.5 fl (81.0-99.0); MEAN CORPUSCULAR HGB 27.9 pg (27.0-31.0); MEAN CORPUSCULAR HGB CONC 31.2 g/dl (33.0-37.0); MEAN PLATELET VOLUME 10.1 fl (9.6-12.3); MONO # 1.3 10*3/uL (0.1-1.0); NEUT # 11.7 10*3/uL (2.3-7.9); NEUT % 80.4 % (47.0-73.0); NUCLEATED RED BLOOD CELL 0.1 % (0.0-0.0); PLATELET COUNT AUTOMATED 239 10*3/uL (130-400); RED BLOOD COUNT 4.08 10*6/uL (4.10-5.10); RED CELL DISTRI WIDTH 17.5 % (0-14.5); WHITE BLOOD COUNT 14.5 10*3/uL (4.8-10.8)
[2018-02-13 19:27] LABS: ACT PARTIAL THROMBO TIME 28.7 SECONDS (20.8-31.5); INTERNATIONAL NORM RATIO 1.1 (2.0-3.5)
[2018-02-13 19:29] LABS: ALBUMIN 3.2 gm/dl (3.1-4.5); CREATININE 4.79 mg/dL (0.55-1.02); POTASSIUM 5.1 mmol/L (3.5-5.1); TOTAL PROTEIN 8.3 gm/dL (6.4-8.2)
[2018-02-13 20:00] VITALS: BP 149/63
[2018-02-13 20:30] VITALS: BP 130/78
[2018-02-13 20:44] VITALS: BP 142/68
[2018-02-13] MEDS ORDERED: CEPACOL SORE T1 EACH MM (22:27)
[2018-02-14] VITALS: BP 152/63
[2018-02-14 07:40] LABS: BASO # 0.1 10*3/uL (0.0-0.1); BASO % 0.6 % (0.0-1.0); EOS # 0.5 10*3/uL (0.0-0.4); EOS % 4.1 % (1.0-4.0); HEMATOCRIT 34.9 % (37.0-47.0); HEMOGLOBIN 10.6 g/dl (12.0-16.0); LYMPH # 1.3 10*3/uL (1.3-4.4); LYMPH % 10.7 % (27.0-41.0); MEAN CELL VOLUME 89.9 fl (81.0-99.0); MEAN CORPUSCULAR HGB 27.3 pg (27.0-31.0); MEAN CORPUSCULAR HGB CONC 30.4 g/dl (33.0-37.0); MONO # 1.5 10*3/uL (0.1-1.0); MONO % 12.4 % (3.0-9.0); NEUT # 8.6 10*3/uL (2.3-7.9); NEUT % 71.5 % (47.0-73.0); NUCLEATED RED BLOOD CELL 0.2 % (0.0-0.0); PLATELET COUNT AUTOMATED 229 10*3/uL (130-400); RED BLOOD COUNT 3.88 10*6/uL (4.10-5.10); RED CELL DISTRI WIDTH 17.5 % (0-14.5)
[2018-02-14 08:07] LABS: CREATININE 5.34 mg/dL (0.55-1.02); TOTAL PROTEIN 7.7 gm/dL (6.4-8.2)
[2018-02-14 12:00] VITALS: BP 125/68
[2018-02-14 20:00] VITALS: BP 128/76
[2018-02-15] VITALS: BP 128/76
[2018-02-15 08:00] VITALS: BP 161/76
[2018-02-15 11:08] LABS: BILIRUBIN NEGATIVE (NEGATIVE); BLOOD 3+ (NEGATIVE); CLARITY TURBID (CLEAR); COLOR YELLOW (YELLOW); GLUCOSE 2+ (NEGATIVE); KETONE NEGATIVE (NEGATIVE); LEUKO ESTERASE 3+ (NEGATIVE); NITRITE NEGATIVE (NEGATIVE); SPECIFIC GRAVITY 1.015 (1.005-1.030); UROBILINOGEN 0.2 E.U./dl (0.2-1.0)
[2018-02-15 11:15] LABS: BACTERIA 3+; WBC TNTC wbc/hpf (0-5)
[2018-02-15 12:00] VITALS: BP 148/68
[2018-02-15 16:00] VITALS: BP 185/92
[2018-02-15 20:00] VITALS: BP 154/63
[2018-02-16] VITALS: BP 158/83
[2018-02-16 08:00] VITALS: BP 140/80
[2018-02-16 12:00] VITALS: BP 139/70
[2018-02-16 16:00] VITALS: BP 115/88
[2018-02-16 20:00] VITALS: BP 161/83
[2018-02-17] VITALS: BP 150/80
[2018-02-17 08:00] VITALS: BP 180/84
[2018-02-17 09:11] LABS: ALBUMIN 3.3 gm/dl (3.1-4.5); CREATININE 6.11 mg/dL (0.55-1.02); PHOSPHOROUS 7.2 mg/dL (2.5-4.9); POTASSIUM 5.7 mmol/L (3.5-5.1); TOTAL PROTEIN 8.2 gm/dL (6.4-8.2)
[2018-02-17 12:00] VITALS: BP 170/74
[2018-02-17 16:43] VITALS: BP 150/75
[2018-02-17 20:00] VITALS: BP 169/95
[2018-02-18] VITALS: BP 182/95
[2018-02-18 12:00] VITALS: BP 142/74
[2018-02-18 16:00] VITALS: BP 127/69
[2018-02-18 20:00] VITALS: BP 149/95
[2018-02-19] VITALS: BP 145/67
[2018-02-19 08:00] VITALS: BP 142/80
[2018-02-19 12:00] VITALS: BP 138/72
[2018-02-19 16:00] VITALS: BP 114/68
[2018-02-19 20:00] VITALS: BP 133/72
[2018-02-20] VITALS (9 sets, daily range): BP systolic 108–167; BP diastolic 50–89
[2018-02-20 07:29] LABS: CREATININE 4.73 mg/dL (0.55-1.02)
[2018-02-21] VITALS: BP 151/64
[2018-02-21 07:42] LABS: ALBUMIN 3.1 gm/dl (3.1-4.5); CREATININE 6.02 mg/dL (0.55-1.02); TOTAL PROTEIN 7.8 gm/dL (6.4-8.2)
[2018-02-21 08:03] LABS: POTASSIUM 7.3 mmol/L (3.5-5.1)
[2018-02-21 12:00] VITALS: BP 144/77
[2018-02-21 16:00] VITALS: BP 144/58
[2018-02-21 16:12] LABS: ACID FAST SPEC PROCESSING Tissue Grinding (.)
[2018-02-21 20:00] VITALS: BP 157/73
[2018-02-22] VITALS: BP 181/84
[2018-02-22 08:00] VITALS: BP 144/74
[2018-02-22 12:00] VITALS: BP 138/74
[2018-02-22 16:00] VITALS: BP 141/81
[2018-03-22] MEDS ORDERED: KEFLEX500 M1 PO (01:34)
[2018-03-31 15:05] LABS: ACID FAST CULTURE Negative (.)
== END 2018-02-22 20:46 | DRG 255 ==
LOC: ED 18:31 → 4E 19:58 → EDHOLD 19:58 → 4E 20:22
PROVIDERS: Family Medicine; Internal Medicine; Internal Medicine Nephrology; Physician Assistant; Podiatrist
PROC: 5A1D70Z Performance of Urinary Filtration, Intermittent, Less than 6 Hours Per Day (ICD-10-PCS; principal; 2018-02-17)
PROC: 5A1D70Z Performance of Urinary Filtration, Intermittent, Less than 6 Hours Per Day (ICD-10-PCS; 2018-02-19)
PROC: 0Y6Y0Z0 Detachment at Left 5th Toe, Complete, Open Approach (ICD-10-PCS; 2018-02-20)
DX: T80.211A Bloodstream infection due to central venous catheter, initial encounter (principal); A41.9 Sepsis, unspecified organism; N18.6 End stage renal disease; I13.2 Hypertensive heart and chronic kidney disease with heart failure and with stage 5 chronic kidney disease, or end stage renal disease; M84.475A Pathological fracture, left foot, initial encounter for fracture; N39.0 Urinary tract infection, site not specified; I50.32 Chronic diastolic (congestive) heart failure; T81.31XA Disruption of external operation (surgical) wound, not elsewhere classified, initial encounter; M86.672 Other chronic osteomyelitis, left ankle and foot; L89.612 Pressure ulcer of right heel, stage 2; E66.01 Morbid (severe) obesity due to excess calories; Z99.2 Dependence on renal dialysis; E78.5 Hyperlipidemia, unspecified; B34.9 Viral infection, unspecified; R62.7 Adult failure to thrive; E03.9 Hypothyroidism, unspecified; E11.42 Type 2 diabetes mellitus with diabetic polyneuropathy; G89.4 Chronic pain syndrome; E11.621 Type 2 diabetes mellitus with foot ulcer; L97.529 Non-pressure chronic ulcer of other part of left foot with unspecified severity; D63.8 Anemia in other chronic diseases classified elsewhere; E11.43 Type 2 diabetes mellitus with diabetic autonomic (poly)neuropathy; E11.22 Type 2 diabetes mellitus with diabetic chronic kidney disease; F41.1 Generalized anxiety disorder; Z16.12 Extended spectrum beta lactamase (ESBL) resistance; B96.20 Unspecified Escherichia coli [E. coli] as the cause of diseases classified elsewhere; E11.59 Type 2 diabetes mellitus with other circulatory complications; E11.69 Type 2 diabetes mellitus with other specified complication; B95.7 Other staphylococcus as the cause of diseases classified elsewhere; E83.39 Other disorders of phosphorus metabolism; F40.240 Claustrophobia; F32.9 Major depressive disorder, single episode, unspecified; Y83.8 Other surgical procedures as the cause of abnormal reaction of the patient, or of later complication, without mention of misadventure at the time of the procedure; B95.2 Enterococcus as the cause of diseases classified elsewhere; Y84.8 Other medical procedures as the cause of abnormal reaction of the patient, or of later complication, without mention of misadventure at the time of the procedure; F17.210 Nicotine dependence, cigarettes, uncomplicated; E87.5 Hyperkalemia; K31.84 Gastroparesis; J44.9 Chronic obstructive pulmonary disease, unspecified; K59.03 Drug induced constipation; T40.2X5A Adverse effect of other opioids, initial encounter; Y92.89 Other specified places as the place of occurrence of the external cause; Z89.422 Acquired absence of other left toe(s); Z88.1 Allergy status to other antibiotic agents; Z76.5 Malingerer [conscious simulation]; Z91.013 Allergy to seafood; Z91.048 Other nonmedicinal substance allergy status; Z90.49 Acquired absence of other specified parts of digestive tract; Z83.3 Family history of diabetes mellitus; Z80.0 Family history of malignant neoplasm of digestive organs; Z82.49 Family history of ischemic heart disease and other diseases of the circulatory system; Z79.4 Long term (current) use of insulin

== ENCOUNTER 2018-04-27 13:15 | Inpatient (IN) | payer MEDICARE ==
[~2018-04-27] VITALS: Ht 162.5 cm; Wt 93.1 kg
--- NOTE | ~2018-04-27 | CON ---
[place], [place] REPORT OF CONSULTATION NAME: [facility]TON [id number] UNIT #: [id number] ROOM: 501 DOCTOR: ERLINDA GRAY MD BIRTHDATE: [birth year] DOS: 04/29/2018 HISTORY OF PRESENT ILLNESS: This is a 52-year-old -[place] woman with a history of longstanding diabetes mellitus, essential hypertension and end-stage renal disease and has been dialyzing for about a year now. She also carries a diagnosis of COPD and has obstructive sleep apnea and has a CPAP, she uses at the nursing facility. Dr. Barr has been addressing these two issues. She has moderate obesity and restless leg syndrome. She quit smoking some time ago, but rarely uses a cigarette. She was admitted to the hospital because of increasing shortness of breath. Her O2 saturation had dropped. I was asked to see her because she had an episode of chest pain which she described as heaviness in the anterior part of the chest. It lasted for 20 minutes and was not accompanied by sweating, nausea, palpitation, dizziness or weakness. She has not had any fever or chills. SENIOR LIVING MEDICATIONS: Are 27 in total. Some of them are as follows: Carvedilol, famotidine, levothyroxine and insulin. PHYSICAL EXAMINATION: GENERAL: This revealed the patient is lying in bed. She is pretty comfortable. Her speech is slow, but she is oriented. She is not diaphoretic. Her complexion is little pale. The neck was difficult to examine. She is not able to move her neck that much. No finger clubbing is present. VITAL SIGNS: Pulse 74 regular, blood pressure 129/68. NECK: Jugular venous pressure was difficult to assess, but appears to be normal, was seen from the left side. EXTREMITIES: She has no edema in the lower extremities. The right foot has a dressing on. RESPIRATORY: She is not tachypneic. Percussion note reveals a lot of rhonchi and crackles in both lungs, mostly in the right side. DIAGNOSTIC DATA: Chest x-ray did not show any acute changes. LABORATORY DATA: Two ECGs showed normal sinus rhythm and a normal pattern. There is no evidence of hyperkalemia. On admission, potassium was 7.3. Sodium 131, serum albumin 3.0 g/dL. Troponin level done today was 0.03. IMPRESSION: This patient with multiple risk factors for coronary artery disease, had chest discomfort, which lasts for a short time. No EKG changes have been noted and I do not believe any further workup is necessary. She did have an echocardiogram in January of last year, which demonstrated an LV ejection fraction of 65% with normal wall motion and mild left ventricular hypertrophy. No further cardiac workup is necessary. I thank you for this consult. [place], [place] REPORT OF CONSULTATION NAME: [facility]KEYAN MIDDLETON [facility] [id number] UNIT #: [id number] ROOM: [facility] DOCTOR: ERLINDA GRAY MD BIRTHDATE: [birth year] ERLINDA GRAY MD CM:CONSTR:REPORT OF CONSULTATION 1630 04/29/18 2112 interface
--- NOTE | ~2018-04-27 | PR ---
[place], [place] PROGRESS NOTE NAME: KARTHIKEYAN MIDDLETON UNIT #: [id number] ROOM: 501 DOCTOR: HONORIO SILVER MD BIRTHDATE: [birth year] DOS: 04/28/2018 NEPHROLOGY PROGRESS NOTE TIME OF SERVICE: 11:00 a.m. REASON FOR FOLLOWUP: Follow up end-stage renal disease. SUBJECTIVE: The patient tolerated a short dialysis for hyperkalemia and fluid removal yesterday. She will be for her full and complete treatment today, later this morning or early afternoon. No other acute events reported overnight. PHYSICAL EXAMINATION: VITAL SIGNS: Labile. Most recent blood pressure 180/86, but blood pressure is down into the 140s as well, afebrile, heart rates is in the 80s, respiratory rate 18. GENERAL: Awake, alert, chronically ill-appearing and older-appearing than her stated age. LUNGS: Decreased. CARDIOVASCULAR: Regular rate. No rubs. Normal work of breathing while sitting upright in bed. ABDOMEN: Obese, soft, nontender. EXTREMITIES: With positive anasarca and edema. NEUROLOGIC: Limited evaluation because of compliance and cooperation. LABORATORIES AND DIAGNOSTICS: White blood cell count 10.3, hemoglobin 11.4, platelets 236. Sodium 133, potassium 5.4, chloride 95, bicarbonate 22, BUN 59, creatinine 6.38. This is an improvement in the potassium from 7.3. ASSESSMENT AND PLAN: 1. End-stage renal disease. Hemodialysis will be today after urgent treatment yesterday for hyperkalemia. Further fluid removal and potassium removal for solute clearance as able. Blood pressure control is poor. Continue oral medications and more fluid removal. Limitation of sodium intake and fluid intake by mouth. 2. Anemia, acceptable. Follow up levels. 3. Hyperkalemia due to dietary indiscretion. Renal diet recommended. Calcium acceptable, phosphorus not checked. Consider checking this if the patient is going to be inpatient. A renal diet, low in phosphorus recommended. [place], [place] PROGRESS NOTE NAME: KARTHIKEYAN MIDDLETON UNIT #: [id number] ROOM: 501 DOCTOR: HONORIO SILVER MD BIRTHDATE: [birth year] HONORIO SILVER MD CM:MIRIAM [id number] HONORIO SILVER MD 05/12/18 0954 interface
--- NOTE | ~2018-04-27 | CON ---
[place], [place] REPORT OF CONSULTATION NAME: [facility] MIDD[facility]TON [id number] UNIT #: [id number] ROOM: 501 DOCTOR: RENÉ TEJADA MD BIRTHDATE: [birth year] DOS: 04/28/2018 CONSULTING PHYSICIAN: Dr. Chin. REASON FOR CONSULTATION: Shortness of breath. HISTORY OF PRESENT ILLNESS: This is a 52-year-old white female patient with history of chronic hypoxic respiratory failure, bronchial asthma and chronic obstructive pulmonary disease as well as end-stage renal failure, on hemodialysis. The patient has been admitted to the hospital as the patient reported symptoms of shortness of breath The patient was admitted to the hospital as she has been noted with increased oxygen requirement patient with hypoxia as well. The patient noted with general weakness and fatigue. Denies symptoms of chest pain or hemoptysis. The patient denies any symptoms of chest pain. She was noted with hyperkalemia, which has been managed with the dialysis. She is receiving her hemodialysis regularly Saturday, Saturday, and Fridays. REVIEW OF SYSTEMS: CONSTITUTIONAL SYMPTOMS: Fatigue and tiredness noted. Denies any symptoms of fever or chills. EYES: Denied burning, redness, or tenderness. EARS, NOSE, AND THROAT: Denies sore throat, hoarseness or otalgia. CARDIOVASCULAR: Edema of the lower extremity has been noted intermittently. The patient does have symptoms of orthopnea. Denies symptoms of palpitations or angina pain. GASTROINTESTINAL SYMPTOMS: Denies dysphagia, nausea, vomiting, diarrhea, abdominal pain, hematemesis, melena, or hematochezia. GENITOURINARY SYMPTOMS: End-stage renal failure noted with the patient on dialysis for the past I believe couple of years, receiving hemodialysis 3 times a week and has been regularly managed by the Nephrology services. MUSCULOSKELETAL: No acute joint pain, redness, or tenderness. CENTRAL NERVOUS SYSTEM: General weakness and fatigue were reported without any focal neurologic deficit, tingling sensation of the extremities. SKIN: Denies lesions or rashes. Remaining systems were reviewed. They were noted all negative. PAST MEDICAL HISTORY: 1. Noted with history of chronic hypoxic respiratory failure. 2. Obstructive sleep apnea disorder with intermittent adherence with the use of the CPAP at the nursing facility. 3. End-stage renal failure, on hemodialysis. 4. History of bronchial asthma. 5. Chronic obstructive pulmonary disease. 6. Peripheral arterial disease and wound infection of the lower extremity that has been treated by the wound project management advisor. 7. Moderate obesity. 8. Type 2 diabetes mellitus. 9. Chronic pain syndrome. [place], [place] REPORT OF CONSULTATION NAME: KARTHIKEYAN MIDDLETON UNIT #: [id number] ROOM: [facility] [place] DOCTOR: RENÉ TEJADA MD BIRTHDATE: [birth year] 10. Past history of tobacco use. 11. Restless leg syndrome. PAST SURGICAL HISTORY: 1. . 2. MediPort insertion for the venous access. 3. Temporary dialysis catheter. 4. Partial amputation of the toe. 5. Debridement of the wounds of the lower extremity, mostly the feet. SOCIAL HISTORY: The patient is not , lives at long-term resident of a nursing facility at [facility]. Denies history of alcohol use or any illicit drugs. Tobacco use noted since teenager, a pack of cigarettes per day until 06/2017. FAMILY HISTORY: The patient's father with complications related to pancreatitis. Mother history was not known by the patient. CURRENT MEDICATIONS: Administered noted use of sennoside A and B, latanoprost eyedrops, NPH insulin, duloxetine, Coreg, Reglan, DuoNeb q.4h., Timolol, Reglan, lorazepam, and Vicodin. DRUG ALLERGIES: THE PATIENT NOTED ALLERGY: 1. IODINE. 2. ERYTHROMYCIN. 3. BIAXIN. PHYSICAL EXAMINATION: GENERAL: A 52-year-old female patient who has been noted currently awake and alert, lying in the bed, using oxygen supplementation nasal cannula. The patient's height was noted on this admission with height of 5 feet 4 inches, weight of 217 pounds. The patient's BMI 37.3 on admission. VITAL SIGNS: The patient noted as a normal temperature since admission, respiratory rate range between 18 and 21, heart rate 80-89, blood pressure 180/86-136/56. Pulse oxygen saturation on 5 liters nasal cannula 98% saturation. HEENT: Examination shows head was atraumatic. Moderate obese. Decreased posterior pharyngeal space, high tongue base crowding of soft tissue structures. CARDIOVASCULAR: S1, S2 is audible. LUNGS: Noted with moderate decreased breath sounds, which are noted generalized. There was no wheezing. No crackles heard. ABDOMEN: Soft with moderate obesity. Bowel sounds present. EXTREMITIES: Shows 1-2+ pitting edema. VISIBLE SKIN: No lesions or rashes. MUSCULOSKELETAL: Without any acute deformities. CENTRAL NERVOUS SYSTEM: Limited with normal mental status. Overall general weakness and fatigue were noted. Further exam could not be performed at this time. LABORATORY DATA: CBC that was done on 04/27/2018, hemoglobin 10.6, WBC count [place], [place] REPORT OF CONSULTATION NAME: KARTHIKEYAN MIDDLETON UNIT #: [id number] ROOM: [facility] [place] DOCTOR: RENÉ TEJADA MD BIRTHDATE: [birth year] normal, platelet count were normal. Lactic acid on admission yesterday was normal. PT/PTT yesterday on admission was normal. CMP yesterday on admission, BUN 68, creatinine 7.86, potassium 7.3, sodium 131. ProBNP was elevated 21,509. The BMP that was done this morning BUN 59, creatinine 6.38, glucose 206. Potassium 5.4 and sodium 133. CBC this morning remains essentially the same as of yesterday without any changes. The chest x-ray one-view, which were taken in the Emergency Room was also reviewed shows dialysis catheter noted in place for this patient. MediPort noted in place for the patient as well. Mild increased interstitial marking was noted. IMPRESSION: 1. The patient with currently admitted to the hospital related to the fluid overload, end-stage renal failure and severe hyperkalemia in view of end-stage renal failure. 2. Hyponatremia related to the end-stage renal failure. 3. History of bronchial asthma, chronic obstructive pulmonary disease without any acute exacerbation. 4. Chronic hypoxic respiratory failure, remains stable as well. PLAN OF THERAPY: Continue aggressive dialysis for the patient. The hyperkalemia has improved significantly with emergency dialysis at this time and still noted mildly elevated, which could be closely monitored by the Nephrology services. Fluid overload with maximal fluid removal resulted in improvement in the symptoms of shortness of breath. Continue current bronchodilator. No further changes in the treatment otherwise will be necessary. Ordering the BiPAP during this hospitalization for the medical management of sleep apnea disorder previously at nighttime. Other supportive therapy, plan of management, care plan for the patient to be continued and changed accordingly. Obtain a PA lateral chest x-ray in the morning to reassess the improvement in the current fluid overload/congestive heart failure. RENÉ CALIX MD CM:CONSTR:REPORT OF CONSULTATION 1522 04/28/18 1742 interface
--- NOTE | ~2018-04-27 | PR ---
[place], [place] PROGRESS NOTE NAME: [facility]KEYAN MIDDLETON [id number] UNIT #: [id number] ROOM: 501 DOCTOR: RENÉ TEJADA MD BIRTHDATE: [birth year] DOS: 05/02/2018 SUBJECTIVE: The patient had been crying, stating symptoms of shortness of breath and has been receiving hemodialysis and noticed more restless and agitated. The patient has not been reporting symptoms of coughing or chest pain. OBJECTIVE: VITAL SIGNS: Normal temperature, respiratory rate 18, heart rate 98, blood pressure 120/62 this morning. The pulse ox saturation on 5 liters nasal cannula was maintained 96-98% saturation. HEENT AND NECK: Chronic moderate obesity. Neck supple. Head was atraumatic. Eyes: No icterus. CARDIOVASCULAR: S1, S2 is audible. LUNGS: The patient was noted with [id number]-np-wqicuist decreased breath sounds. No wheeze or crackles heard. ABDOMEN: Soft, nontender, bowel sounds present. EXTREMITIES: No new changes. ASSESSMENT: Fluid overload. The patient with congestive heart failure, diastolic dysfunction, history of bronchial asthma for this patient as well. Past tobacco use. Obstructive sleep apnea and nonadherence with treatment. PLAN OF CARE: No changes in the plan of management for the patient at this time will be needed. Continue current therapy, plan and management for the patient as ongoing. Anxiolytics and other medical management. Supportive care. RENÉ TEJADA MD CM:PNTRANS [id number] CLEMENTE MUHAMMAD MD 05/05/18 0952 BILLIE [email or web address]
--- NOTE | ~2018-04-27 | PR ---
[place], [place] PROGRESS NOTE NAME: [facility]AN MIDDLETON [id number] UNIT #: [id number] ROOM: 501 DOCTOR: MAIA AGUILAR MD BIRTHDATE: [birth year] DOS: 05/01/2018 SUBJECTIVE: The patient is breathing slightly better today and going for surgery to her right heel tomorrow for a new wound. OBJECTIVE: VITAL SIGNS: Blood pressure 114/52, heart rate 70 beats per minute, breathing 17 times per minute, temperature 98 degrees Fahrenheit. GENERAL APPEARANCE: The patient is alert and oriented x 3, in no visible distress, except for obesity. HEENT AND NECK: Exam within normal limits. CARDIOVASCULAR SYSTEM: Heart rate is regular in rate and rhythm. S1 and S2 normally audible. LUNGS: Clear to auscultation. ABDOMEN: Soft, nontender. No obvious organomegaly. Bowel sounds are present. EXTREMITIES: Right heel wound with purulent discharge. IMPRESSION AND PLAN: 1. Right heel wound, for debridement tomorrow by Podiatry. 2. Generalized anxiety disorder, being treated and controlled. 3. Acute exacerbation of chronic obstructive pulmonary disease with still decreased breath sounds all over, being treated with oxygen and bronchodilators. Dr. Barr, the vendor manager is following. 4. Chronic kidney failure. The patient remains on hemodialysis, noncompliant with diet and treatment. 5. Severe hyperkalemia, resolved with hemodialysis and better diet. 6. Benign essential hypertension, being treated and monitored and controlled. 7. Type 2 diabetes mellitus. Blood sugar is being monitored and treated. 8. The patient evaluated for chest pains by email production specialist, Dr. Asencio and pains are considered to be noncardiac. 9. The patient became hypoglycemic, so her insulin dosage was cut to half. She is apparently eating less. MAIA AGUILAR MD CM:PNTRANS [id number] MAIA AGUILAR MD 05/02/18 1348 interface
--- NOTE | ~2018-04-27 | CON ---
[place], [place] REPORT OF CONSULTATION NAME: KARTHIKEYAN MIDDLETON [id number] UNIT #: [id number] ROOM: 501 DOCTOR: VINNY ARNDT MD BIRTHDATE: [birth year] DOS: 05/01/2018 REASON FOR CONSULTATION: Lower extremity ulcer. HISTORY OF PRESENTING ILLNESS: This is a female well known to me from her previous hospitalizations. She was seen on 01/2018 for her high-grade staph epidermidis bacteremia and to preserve the line she was treated with vancomycin through her port for 4 weeks, ending on 03/15/2018 and her left foot had changes of osteomyelitis, status post fifth ray amputation on 02/20/2018 with ertapenem 500 mg daily till 04/03/2018. The patient has a MediPort and hemodialysis catheter that were deemed difficult to remove and were preserved. She had a transthoracic echocardiogram that was normal in the past. Her wound cultures from the left side grew Staph aureus, which was an MRSA and wound culture shows ESBL E. coli. At this time, the patient is presenting for shortness of breath and ID has been consulted for her left heel ulcer. According to the patient, she has not been getting good care at [facility] and she is not having much pain, but lot of foul smell. Podiatry has been consulted as well. The patient is currently off antibiotics. PAST MEDICAL HISTORY: Significant for foot amputations bacteremia, CHF, anemia, anxiety, end-stage renal disease, on hemodialysis, hypertension, hyperlipidemia, morbid obesity, osteomyelitis. PAST SURGICAL HISTORY: , foot surgeries, appendectomy. SOCIAL HISTORY: Nonalcoholic. Former smoker. No illicit drug use. Lives in a [facility]. FAMILY HISTORY: Father of pancreatic cancer at age 73. Mother in good health age 74. ALLERGIES: CLARITHROMYCIN, ERYTHROMYCIN, IODINE, SHELLFISH. HOME MEDICATIONS: The patient was recently getting Keflex 500 mg twice a day for 2 weeks. Other medications reviewed. REVIEW OF SYSTEMS: A 12-point review of systems has been done and pertinent negatives are included in HPI. Rest noncontributory. PHYSICAL EXAMINATION: VITAL SIGNS: Stable. GENERAL: The patient is alert, oriented x 3, not in acute distress. HEENT: Atraumatic, normocephalic. PERRLA, EOMI. RESPIRATORY: Air entry bilaterally equal. No wheeze or crackles. CARDIOVASCULAR: S1, S2 normal. No murmur, rubs. ABDOMEN: Soft, nontender, nondistended. SKIN: Entire right heel has a necrotic eschar with foul smell and fluctuation. LABORATORY DATA AND IMAGING: Reviewed. [place], [place] REPORT OF CONSULTATION NAME: KARTHIKEYAN MIDDLETON UNIT #: [id number] ROOM: [facility] DOCTOR: VINNY ARNDT MD BIRTHDATE: [birth year] ASSESSMENT AND PLAN: Right calcaneal pressure ulcer with necrosis infected at this time. PLAN: Necrotic pressure ulcer needs debridement. MRI has been ordered by Podiatry. Hold antibiotics. Agree to check ESR, CRP. Her ESR is 52. CRP is 10.30. She has multiple surgeries of her foot, poor circulation not helpful with her healing of the wounds. I have sent the bone for culture as well as pathology. Thank you for your consult. Please call for any questions. I will follow the patient closely. Vinny Arndt MD CM:CONSTR:REPORT OF CONSULTATION 1055 05/02/18 0842 interface
--- NOTE | ~2018-04-27 | PR ---
[place], [place] PROGRESS NOTE NAME: KARTHIKEYAN MIDDLETON UNIT #: [id number] ROOM: 501 DOCTOR: RENÉ TEJADA MD BIRTHDATE: [birth year] DOS: 05/01/2018 SUBJECTIVE: She has been stating partial reduction in symptoms of shortness of breath in the last 24 hours. She has been noted with zgyg-br-[id number] nonproductive cough with chest congestion reported this morning. Denies symptoms of fever or chills. Denies symptoms of nausea or vomiting. OBJECTIVE: VITAL SIGNS: For the patient which has been recorded shows a normal temperature. The respiratory rate recorded as 18, heart rate of 69, blood pressure 124/98, pulse ox 118/58. Pulse ox saturation 5 liters nasal cannula 99% saturation. HEAD, EYES, EARS, NOSE, AND THROAT: Examination shows head was atraumatic. Eyes nonicterus. NECK: Supple. CARDIOVASCULAR SYSTEM: S1, S2 is audible. LUNGS: With expiratory wheezing. Scattered crackles noted bilaterally. ABDOMEN: Soft and obese. EXTREMITIES: Without acute edema. Right foot was covered with the bandage at this present time and the dressing. IMPRESSION: The patient with stable respiratory status with acute exacerbation of chronic obstructive pulmonary disease with acute fluid overload and congestive heart failure seemed to be improving acute end-stage renal failure, on hemodialysis. Chronic infection of the right foot and ankle. PLAN OF MANAGEMENT: Continue the current plan from the pulmonary standpoint with use of bronchodilators, oxygen supplementation, other therapy, plan of care. She was also noticed with hypoglycemia this morning, which is already corrected appropriately. The patient's glucose supplementation ordered by the primary care physician. No changes in the plan at this time would be necessary. Usual care. Supportive therapy, plan of care and management at the present time. [place], [place] PROGRESS NOTE NAME: KARTHIKEYAN MIDDLETON UNIT #: [id number] ROOM: [facility] DOCTOR: RENÉ TEJADA MD BIRTHDATE: [birth year] RENÉ CALIX MD CM:PNTRANS [phone] RENÉ MUHAMMAD MD 05/01/18 1552 interface
--- NOTE | ~2018-04-27 | PR ---
[place], [place] PROGRESS NOTE NAME: KARTHIKEYAN MIDDLETON UNIT #: [id number] ROOM: 501 DOCTOR: RENÉ TEJADA MD BIRTHDATE: [birth year] DOS: 04/29/2018 SUBJECTIVE: The patient was complaining of significant anxiety and some symptoms of shortness of breath. She was also complaining of pain, which has been noted in the back as a chronic pain. Denies symptoms of hemoptysis. Denies symptoms of fever or chills. Denies symptoms of nausea or vomiting. She does have chronic edema of the lower extremities. Denies symptoms of headache or diplopia. Denies symptoms of dryness of the mouth. Remaining systems were reviewed, they were noted all negative. PHYSICAL EXAMINATION: GENERAL: The patient is currently sitting on the side of the bed. VITAL SIGNS: Temperature noted normal, respiratory rate is 20, heart rate 71, blood pressure 135/71. Pulse oxygen saturation on 5 liters nasal canula 99% saturation. HEENT: Moderate obesity. NECK: Supple. CARDIOVASCULAR: S1, S2 audible. LUNGS: Decreased breath sounds in the lungs bilaterally. ABDOMEN: Soft, obese, nontender. EXTREMITIES: Noted with 1+ to 2+ pitting edema. VISIBLE SKIN: No lesions or rashes. MUSCULOSKELETAL: Without acute deformities. CENTRAL NERVOUS SYSTEM: Cranial nerves 2-12 intact. LABORATORY DATA: The chest x-ray was noted dialysis catheter in place to the right internal jugular vein. MediPort noted in place in the left chest. Mild pulmonary venous congestion marking noted without any evidence of gross pulmonary infiltration. IMPRESSION: 1. Currently noted with a stable respiratory status with acute respiratory failure. 2. End-stage renal failure, on hemodialysis. 3. Resolution of hyperkalemia. 4. Obstructive sleep apnea disorder. 5. Bronchial asthma and chronic obstructive pulmonary disease history as well, which was noted stable. PLAN OF TREATMENT: Pain management per primary care physician. Continue bronchodilators, oxygen supplementation, use of the BiPAP if necessary. Supportive care therapy, plan of management, care plan of treatment hemodialysis per order from Nephrology services. [place], [place] PROGRESS NOTE NAME: KARTHIKEYAN MIDDLETON UNIT #: [id number] ROOM: 501 DOCTOR: RENÉ TEJADA MDDATE: [birth year] RENÉ CALIX MD CM:PNTRANS 1308 [id number] RENÉ MUHAMMAD MD 05/12/18 1122 interface
--- NOTE | ~2018-04-27 | PR ---
[place], [place] PROGRESS NOTE NAME: KAR[facility]IKEYAN MIDDLETON [id number] UNIT #: [id number] ROOM: 501 DOCTOR: ERLINDA GRAY MD BIRTHDATE: [birth year] DOS: 04/30/2018 SUBJECTIVE: She is sitting in a chair. Her chest rattles when she coughs. She is not tachypneic. No chest pain or palpitations. She has been eating poorly. PHYSICAL EXAMINATION: GENERAL: Reveals a patient who is sitting in a chair. She is rather tired looking, not in any distress. She is not tachypneic, but has oxygen on. VITAL SIGNS: Temperature is normal 97.7, pulse is 72 and regular, blood pressure 127/67. NECK: JVP is normal. EXTREMITIES: She has mild edema of the lower extremities, more so on the right side. LUNGS: Lot of rhonchi and some crackles in both lungs with reduced breath sounds. IMPRESSION: 1. Chest pain, noncardiac. She ruled out for acute myocardial infarction. 2. Chronic obstructive pulmonary disease with acute exacerbation, probably due to bronchitis. 3. End-stage renal disease and she has been dialyzing. No new recommendations. ERLINDA GRAY MD CM:PNTRANS [phone] ERLINDA GRAY MD 05/13/18 0959 interface
--- NOTE | ~2018-04-27 | PR ---
[place], [place] PROGRESS NOTE NAME: KARTHIKEYAN MIDDLETON [facility] #: [id number] UNIT #: [id number] ROOM: 501 DOCTOR: FIFI MUHAMMAD MD,RENÉ BIRTHDATE: [birth year] DOS: 04/30/2018 SUBJECTIVE: The patient has been noted comfortable at this time without any acute distress this morning. She has been resting comfortably and receiving hemodialysis. She has not been noted any edema of the lower extremity. Edema of the lower extremity seemed to be resolved. There were no symptoms of chest pain. There was no wheezing reported by the patient. OBJECTIVE: VITAL SIGNS: Normal temperature, respiratory rate 18, heart rate of 80, blood pressure 116/70. The pulse oxygen saturation recorded as 97% on 5 liters nasal cannula. HEENT: Examination shows head was atraumatic. Eyes nonicterus. NECK: Supple and obese. CARDIOVASCULAR: S1, S2 is audible. LUNGS: The patient was noted with decreased breath sounds in the lungs bilaterally with no wheeze or crackles at the present time. ABDOMEN: Soft, nontender. Bowel sounds present. EXTREMITIES: Without any acute edema. IMPRESSION: 1. The patient with resolving fluid overload, congestive heart failure, history of bronchial asthma/chronic obstructive pulmonary disease. 2. End-stage renal failure, regular hemodialysis. PLAN OF MANAGEMENT: Continue to maximize the current medical management. Continuation of the bronchodilators, oxygen supplementation and other therapies as in progress. Usual care, other supportive plan of management and treatments. RENÉ CALIX MD CM:PNTRANS [phone] RENÉ MUHAMMAD MD 04/30/18 1430 interface
--- NOTE | ~2018-04-27 | EKG ---
[place], [place] ELECTROCARDIOGRAM REPORT NAME: KARTHIKEYAN MIDDLETON UNIT #: [id number] ROOM: [facility] DOCTOR: MELYSSA DRAFT REPORT BIRTHDATE: [birth year] [facility] Test Date: 2018-04-29 Test Time: 17:42:03 Pat Name: KARTHIKEYAN MIDDLETON Department: Room: [facility] Gender: F [employer] Worker: : 1965 Requested By: MAIA AGUILAR Order Number: [id number] Reading MD: Measurements Intervals [place] Rate: 73 P: 42 WV: 158 QRS: 19 QRSD: 89 T: 56 QT: 430 QTc: 474 Interpretive Statements Sinus rhythm Compared to ECG 04/29/2018 11:23:49 No significant changes CM:EKGRPT:ELECTROCARDIOGRAM REPORT 1742 1449 MAIA RAGSDALE DRAFT REPORT MAIA AGUILAR MD
--- NOTE | ~2018-04-27 | WRIGHTHP ---
[place], [place] PATIENT HISTORY AND PHYSICAL EXAM NAME: KARTHIKEYAN MIDDLETON [facility] #: [id number] UNIT #: [id number] ROOM: [facility] DOCTOR: MAIA AGUILAR MD BIRTHDATE: [birth year] DOS: 04/27/2018 HISTORY OF PRESENT ILLNESS: 1. The patient is a 52-year-old female with a past medical history of chronic end-stage kidney failure. The patient remains on hemodialysis. 2. Chronic hyperkalemia related to noncompliance with diet. 3. Amputation of the fifth digit of the left foot. 4. Advanced adult failure to thrive and chronic osteomyelitis involving her feet. 5. Hypothyroidism. 6. Chronic constipation. 7. Right heel decubitus. 8. Diabetic gastroparesis, which is chronic and recurrent with nausea and vomiting. 9. Opioid and benzodiazepine seeking behavior. 10. COPD. 11. Type 2 diabetes mellitus, insulin requiring. 12. Benign essential hypertension. 13. History of substance abuse with alcohol and cocaine in the past. The patient again was sent over from retirement to the Emergency Department at [facility] for increased shortness of breath. The patient was diagnosed as having acute exacerbation of COPD and recommended for admission and further management. After admission, the patient appears tired and is undergoing hemodialysis for hyperkalemia. No recent chest pains. No fainting episodes. No other GI or urinary symptoms. REVIEW OF SYSTEMS: RESPIRATORY: Increasing shortness of breath. GASTROINTESTINAL: No nausea, vomiting, diarrhea or constipation. CARDIOVASCULAR: No chest pain or palpitations. FAMILY HISTORY: Noncontributory. HOME MEDICATIONS: The patient is taking bronchodilators, latanoprost eyedrops, brimonidine eyedrops, timolol eyedrops, Coreg, vitamin D, Cymbalta, Pepcid, Vicodin, levothyroxine, lorazepam, metoclopramide, Lyrica, senna, insulin. ALLERGIES: THE PATIENT IS ALLERGIC TO IODINE, ERYTHROMYCIN, CLARITHROMYCIN, SHELLFISH. PHYSICAL EXAMINATION: GENERAL APPEARANCE: The patient is alert, oriented x 3, obese. Generalized weakness. VITAL SIGNS: Blood pressure 131/98, heart rate of 74 beats per minute, breathing 20 times per minute, afebrile. HEENT AND NECK: Extraocular movements are intact. Sclerae are anicteric. Oral mucosa is moist and clean. No obvious facial weakness. Neck is supple without any lymphadenopathy. No thyromegaly. No JVD. No carotid arterial bruits. LUNGS: Clear to auscultation. No wheezing. No rhonchi. [place], [place] PATIENT HISTORY AND PHYSICAL EXAM NAME: KARTHIKEYAN MIDDLETON UNIT #: [id number] ROOM: [facility] DOCTOR: MAIA AGUILAR MD BIRTHDATE: [birth year] CARDIOVASCULAR SYSTEM: Heart rate is regular in rate and rhythm. S1 and S2 normally audible. No significant murmur or any other abnormal cardiac sounds. ABDOMEN: Soft, nontender. No obvious organomegaly. Bowel sounds are present. No obvious herniation. EXTREMITIES: Without significant cyanosis or edema. Warm to touch. Amputation of the fifth digit of the left foot. CENTRAL NERVOUS SYSTEM: Alert and oriented x 3. Cranial nerves II-XII are intact. Speech is normal. The patient is able to move all extremities. Normal muscle strength. Deep tendon reflexes are equal on both sides. Plantars were downgoing. IMPRESSION: 1. The patient with acute exacerbation of chronic obstructive pulmonary disease with shortness of breath and wheezing to be treated with bronchodilators, oxygen, nebulizer treatments. 2. Chronic adult failure to thrive. The patient to be kept on physical therapy and we will take bedsore precautions. 3. Hypothyroidism, replaced with supplements. 4. Type 2 diabetes mellitus, insulin requiring, to be treated and blood sugars were monitored. 5. Benign essential hypertension. PLAN: To continue treatment and monitor blood pressures and adjust treatment as necessary. MAIA AGUILAR MD CM:HISPHYS:PATIENT HISTORY AND PHYSICAL EXAMINATION MAIA AGUILAR MD 04/28/18 0015 interface
--- NOTE | ~2018-04-27 | PR ---
[place], [place] PROGRESS NOTE [id number] UN[facility] #: [id number] ROOM: [facility] DOCTOR: MAIA AGUILAR MD BIRTHDATE: [birth year] DOS: SUBJECTIVE: The patient is still complaining of shortness of breath. PHYSICAL EXAMINATION: GENERAL APPEARANCE: The patient is alert and oriented x 3, in no visible distress. VITAL SIGNS: Blood pressure 129/68, heart rate of 74 beats per minute, breathing 20 times per minute, temperature 98 degrees Fahrenheit. HEENT AND NECK: Exam within normal limits. CARDIOVASCULAR SYSTEM: Heart rate is regular in rate and rhythm. S1 and S2 normally audible. LUNGS: Decreased breath sounds on lung auscultation and scattered crackles, expiratory wheezing. ABDOMEN: Obese. EXTREMITIES: Amputation of the fifth digit of the left foot. IMPRESSION: 1. Acute exacerbation of severe underlying chronic obstructive pulmonary disease, being treated with bronchodilators, oxygen, nebulizer treatments. Dr. Barr is following. 2. Chronic kidney disease, which is end-stage and the patient on hemodialysis, noncompliant with severe chronic hyperkalemia. 3. Severe chronic hyperkalemia from kidney failure and from noncompliance with diet. Potassium level improved to 5 and normal with treatment. 4. Type 2 diabetes mellitus. Blood sugars are being monitored and controlled. 5. Benign essential hypertension, treated and controlled. MAIA AGUILAR MD CM:PNTRANS [phone] MAIA AGUILAR MD 04/30/18 0458 interface
--- NOTE | ~2018-04-27 | CON ---
[place], [place] REPORT OF CONSULTATION [id number] #: [id number] ROOM: 501 DOCTOR: ABDOULAYE ADAMESROMAN BIRTHDATE: [birth year] DOS: 05/02/2018 CARDIAVASCULAR CONSULTATION HISTORY OF PRESENT ILLNESS: The patient is already seen by Podiatry and also Infectious Disease. The patient has a large ulcer on the right heel and also right big toe ulcer. At the ankle or the patellar area on the left also, there is a small wound now, very thick discoloration of the skin on the lower extremities below the knee both sides more on the right than the left indicating severe ischemic and peripheral vascular disease with [place] classification 5. Ultrasound is markedly abnormal, outlet vessel disease with total occlusion of the right SFA and inlet vessel disease on the left side also is considered, markedly abnormal on both sides. Some distal disease also is considered. The patient has been in and out of the hospital. The patient is a diabetic also. The patient also had Staphylococcus epidermidis bacteremia in the past and that is on 02/15/2018. Wound care also being done. The patient has end-stage renal failure, with dialysis. Staphylococcus aureus positive on wound cultures and MRSA. Podiatry also on the care and requested since markedly abnormal peripheral arterial ultrasound study indicating severe peripheral arterial disease, manifested with significant tissue damage indicating severe peripheral arterial disease. The patient is here for revascularization to improve the outcome and outlook. PAST MEDICAL HISTORY: The patient has a history of hypertension, hypertensive cardiovascular disease, dyslipidemia, vkeqbyxb-hi-caxync obesity, and osteomyelitis. PAST SURGICAL HISTORY: The patient has a history of , several foot surgeries, and appendectomy in the past. SOCIAL HISTORY: The patient claims she quit smoking a few years ago. The patient lives in a jail. FAMILY HISTORY: Father with pancreatic cancer at 73. Mother is still alive. ALLERGIES: THE PATIENT IS ALLERGIC TO CLARITHROMYCIN, ERYTHROMYCIN, IODINE, AND SHELLFISH. REVIEW OF SYSTEMS: The patient denies any chest discomfort. No syncope. PHYSICAL EXAMINATION: VITAL SIGNS: Stable. SKIN: Very thick and it looked like with chronic ischemic lower extremities below the knee on both sides. There are chronic changes on the skin. ABDOMEN: Soft. LUNGS: Diminished breath sounds at bases. EXTREMITIES: Right dorsalis pedis about 1+, left is probably 2+. I could not feel the posterior tibial on both sides. Right heel is necrotic and with big ulcer. Right big toe base also has a wound. [place], [place] REPORT OF CONSULTATION NAME: KARTHIKEYAN MIDDLETON UNIT #: [id number] ROOM: [facility] DOCTOR: ROMAN STANFORD MD, FACC BIRTHDATE: [birth year] RECTAL: Deferred/unrelated. GENITAL: Deferred/unrelated. BREASTS: Deferred/unrelated. DIAGNOSIS: Severe peripheral arterial disease, total occlusion of the right superficial femoral vein, inlet vessel disease, and on the left, severe peripheral arterial disease with skin changes and also wounds, Daniel classification 5, with tissue damage. PLAN: Discussed with Dr. Chin, her primary, to take her to the [place] and for further management including peripheral angiogram and revascularization. Meanwhile make sure her general condition is stable prior to taking her to the intervention. We will optimize the general medical condition prior to the angiogram and intervention. Options, procedures, complications, morbidity, mortality, risks were explained to the patient. The patient agreed to go to [place] for further management. ROMAN STANFORD MD CM:CONSTR:REPORT OF CONSULTATION 1644 05/22/18 0752 interface
--- NOTE | ~2018-04-27 | EKG ---
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
--- NOTE | ~2018-04-27 | PR ---
[place], [place] PROGRESS NOTE NAME: [id number] UN[facility] #: [id number] ROOM: 501 DOCTOR: MAIA AGUILAR MD BIRTHDATE: [birth year] DOS: 04/30/2018 SUBJECTIVE: The patient is chronically sick and suffering from chronic pains and anxiety, undergoing hemodialysis today. OBJECTIVE: GENERAL APPEARANCE: The patient is alert and oriented x 3, in no visible distress. Obesity. VITAL SIGNS: Blood pressure 116/70, heart rate 67 beats per minute, breathing 20 times per minute, temperature 98 degrees Fahrenheit. HEENT AND NECK: Exam within normal limits. CARDIOVASCULAR SYSTEM: Heart rate is regular in rate and rhythm. S1 and S2 normally audible. LUNGS: Clear to auscultation. ABDOMEN: Soft, nontender. No obvious organomegaly. Bowel sounds are present. EXTREMITIES: Without significant cyanosis or edema. Amputation of the fifth digit of the left toe. IMPRESSION: 1. Chronically sick and suffering from chronic pains and anxiety. I will continue with present treatment. 2. Acute exacerbation of severe underlying chronic obstructive pulmonary disease, being treated with bronchodilators, oxygen, antibiotics and Dr. Barr, the rougher operator, is following. 3. Chronic kidney failure. The patient on hemodialysis. The patient is noncompliant with treatment. 4. Severe hyperkalemia, improved with treatment. The patient is noncompliant with diet. 5. Type 2 diabetes mellitus, being treated and controlled. 6. Benign essential hypertension. Blood pressure is being monitored and staying normal and treated. MAIA AGUIALR MD CM:PNTRANS [phone] MAIA AGUILAR MD 04/30/18 1256 interface
--- NOTE | ~2018-04-27 | PR ---
[place], [place] PROGRESS NOTE NAME: KARTHIKEYAN MIDDLETON [facility] #: [id number] UNIT #: [id number] ROOM: 501 DOCTOR: MAIA AGUILAR MD BIRTHDATE: [birth year] DOS: 05/02/2018 SUBJECTIVE: The patient feeling about the same; some shortness of breath. OBJECTIVE: VITAL SIGNS: Blood pressure 120/62, heart rate of 98 beats per minute, afebrile. GENERAL APPEARANCE: Obesity. The patient is alert and oriented x 3, in no visible distress. HEENT AND NECK: Exam within normal limits. CARDIOVASCULAR SYSTEM: Heart rate is regular in rate and rhythm. S1 and S2 normally audible. LUNGS: On auscultation, she had decreased breath sounds and expiratory wheezing. ABDOMEN: Soft, nontender. No obvious organomegaly. Bowel sounds are present. EXTREMITIES: Right heel ulcer and amputation of the fifth digit of the right foot IMPRESSION: 1. Patient with acute exacerbation of chronic obstructive pulmonary disease with acute over chronic respiratory failure. 2. Noncardiac chest pains, evaluated by the class c driver, Dr. Asencio. 3. Chronic kidney failure. Patient remains on hemodialysis. 4. Severe hyperkalemia from dietary noncompliance, improved with treatment and hemodialysis. 5. Type 2 diabetes mellitus. Blood sugars being monitored and followed. 6. Benign essential hypertension, being treated, being monitored. 7. Advance adult failure to thrive. Patient chronically sick with chronic pains and anxiety, which is severe, being treated. 8. Right heel ulcer, debrided by Podiatry. Arterial Dopplers showing severe right lower extremity distal atherosclerosis and circulatory disease of the left lower extremity. MAIA AGUILAR MD CM:PNTRANS [phone] 1 MAIA AGUILAR MD 05/03/18209 interface
--- NOTE | ~2018-04-27 | PR ---
[place], [place] PROGRESS NOTE NAME: K[facility]IKEYAN MIDDLETON [id number] UNIT #: [id number] ROOM: [facility] DOCTOR: MAIA AGUILAR MD BIRTHDATE: [birth year] DOS: 04/28/2018 SUBJECTIVE: The patient is feeling very weak and short of breath. PHYSICAL EXAMINATION: VITAL SIGNS: Blood pressure 160/88, heart rate 75 beats per minute, breathing 20 times per minute, temperature 98 degrees Fahrenheit. GENERAL APPEARANCE: The patient is alert and oriented x 3, in no visible distress, except for obesity. HEENT AND NECK: Exam within normal limits. CARDIOVASCULAR SYSTEM: Heart rate is regular in rate and rhythm. S1 and S2 normally audible. LUNGS: Clear to auscultation. ABDOMEN: Soft, nontender. No obvious organomegaly. Bowel sounds are present. EXTREMITIES: Amputation of the fifth digit of the left foot. IMPRESSION: 1. Acute exacerbation of chronic obstructive pulmonary disease, being treated with bronchodilators, oxygen, nebulizer treatments. Dr. Barr, the aircraft navigator to follow. 2. The patient has chronic kidney failure, end-stage. The patient remains on hemodialysis, noncompliant with diet. 3. Severe hyperkalemia from kidney failure and patient not following diet. Repeat electrolytes show improvement in potassium level to 5.4 from 7.3 yesterday. 4. Chronic adult failure to thrive and recurrent admissions to the hospital. We are taking bedsore precautions, turning her every 2 hours and using an air mattress. 5. Type 2 diabetes mellitus. Blood sugars are reasonably controlled. 6. Benign essential hypertension, treated and controlled. MAIA AGUILAR MD CM:PNTRANS [phone] MAIA AGUILAR MD 04/28/18 3385 interface
--- NOTE | ~2018-04-27 | PR ---
[place], [place] PROGRESS NOTE [id number] UN[facility] #: [id number] ROOM: 501 DOCTOR: ERLINDA GRAY MD BIRTHDATE: [birth year] DOS: 05/02/2018 SUBJECTIVE: She is tired and sleepy. She has no chest pain. She has a cough and the chest rattles a lot. She has been eating poorly and does not ambulate much because of neuropathy and ulcers of the feet. PHYSICAL EXAMINATION: GENERAL: The patient, who is somewhat sleepy and drowsy. She seems to be pale. VITAL SIGNS: Temperature 98.2 degree Fahrenheit, pulse is 80, blood pressure 137/49. NECK: Normal JVP, no murmurs are present. LUNGS: She has rhonchi and crackles in both lungs with reduced breath sounds. EXTREMITIES: She has 2+ right and 1+ left leg edema. There are ulcers on the feet. She has been dialyzing regularly and has lost 5 kilos in weight since admission. IMPRESSION: 1. Chest pain. This is likely of noncardiac and it has not come back today. 2. Chronic obstructive pulmonary disease with an infection that has been exacerbated by the latter and is being treated. 3. End-stage renal disease. She seems to be mildly volume overloaded. No new recommendations. ERLINDA GRAY MD CM:PNTRANS 1644 ERLINDA GRAY MD 05/03/18 0829 interface
--- NOTE | ~2018-04-27 | DS ---
[place], [place] DISCHARGE SUMMARY NAME: KARTHIKEYAN MIDDLETON UNIT #: [id number] ROOM: [facility] DOCTOR: LAUREN BERNALMAIA Gould BIRTHDATE: [birth year] DOS: 05/02/2018 DISCHARGE DIAGNOSES: 1. Acute exacerbation of chronic obstructive pulmonary disease. 2. Noncardiac chest pains evaluated by her shower room attendant, Dr. Asencio. 3. Chronic end-stage kidney failure. The patient remains on hemodialysis. 4. Severe hyperkalemia from dietary noncompliance and kidney failure. 5. Type 2 diabetes mellitus. 6. Benign essential hypertension. 7. Advanced adult failure to thrive. 8. Right heel ulcer debrided by Podiatry. HOSPITAL COURSE: The patient was admitted for increased shortness of breath and treated with bronchodilators, antibiotic, oxygen and her breathing improved. Noncardiac chest pains evaluated by her shower room attendant, Dr. Asencio. Cardiac enzymes were negative. Chronic kidney failure, end-stage. The patient requiring hemodialysis, which was continued. Severe hyperkalemia from dietary noncompliance and kidney failure was treated and potassium levels were normalized. Type 2 diabetes mellitus. Blood sugars were monitored and treated. The patient kept on a nonconcentrated sweet diet. Advance adult failure to thrive. The patient worked with physical therapy and we took bedsore and fall precautions. Right heel ulcer was debrided by Podiatry and arterial Doppler showed severe right lower extremity distal atherosclerosis and circulatory disease of the left lower extremity. DISCHARGE MANAGEMENT: Tapering down dose of prednisone, DuoNebs every 4 hours, Kayexalate 30 grams weekly, Xalatan eyedrops, Cymbalta 60 mg a day, Reglan 5 mg before meals and at bedtime, Lyrica 100 mg b.i.d., Senokot daily, Lantus insulin 30 units subcutaneous b.i.d., [place] 5/325 mg every 6 hours p.r.n. for pain, Ativan 1 mg every 6 hours p.r.n. for anxiety, Timoptic eyedrops, Coreg 6.25 mg b.i.d. [place], [place] DISCHARGE SUMMARY NAME: KARTHIKEYAN MIDDLETON UNIT #: [id number] ROOM: [facility] DOCTOR: MAIA AGUILAR MD BIRTHDATE: [birth year] MAIA AGUILAR MD CM:CL[place] [id number] MAIA AGUILAR MD 05/28/18 1113 interface
--- NOTE | ~2018-04-27 | EKG ---
[place], [place] ELECTROCARDIOGRAM REPORT NAME: KARTHIKEYAN MIDDLETON UNIT #: [id number] ROOM: [facility] DOCTOR: MELYSSA DRAFT REPORT BIRTHDATE: [birth year] [facility] [place] Test Date: 2018-04-27 Test Time: 13:28:57 Pat Name: KARTHIKEYAN MIDDLETON Department: Room: [facility] Gender: F Director Of Acquisitions: Dianelys Posada : 1965 Requested By: RADU BYERS Order Number: [id number] Reading MD: Silvestre Lin MD Measurements Intervals [place] Rate: 72 P: 45 MI: 171 QRS: 24 QRSD: 91 T: 1 QT: 394 QTc: 432 Interpretive Statements Sinus rhythm Low voltage, extremity leads Consider anterior infarct Baseline wander in lead(s) III Compared to ECG 04/12/2018 22:06:42 Electronically Signed On 04-29-2018 12:03:32 PST by Silvestre Lin MD CM:EKGRPT:ELECTROCARDIOGRAM REPORT 1328 1203 RADU MCMAHON DRAFT REPORT RADU BYERS DO
[~2018-04-27 13:15] MED LIST changes: +CEPACOL SORE T1 EACH MM; +KEFLEX500 M1 PO
[2018-04-27 13:17] VITALS: BP 130/58
--- NOTE | 2018-04-27 13:32 | NUR ---
PATIENT REFUSING HER R FOOT TO BE UNWRAPPED AT THIS TIME AND ALSO REFUSING PICTURES WELL. STATES "I DONT WANT IT UNWRAPPED I DONT WANT PICTURES".
[2018-04-27 13:50] LABS: BASO % 0.4 % (0.0-1.0); EOS # 0.1 10*3/uL (0.0-0.4); EOS % 1.1 % (1.0-4.0); HEMOGLOBIN 10.6 g/dl (12.0-16.0); LYMPH # 0.7 10*3/uL (1.3-4.4); LYMPH % 7.3 % (27.0-41.0); MEAN CORPUSCULAR HGB 26.6 pg (27.0-31.0); MEAN CORPUSCULAR HGB CONC 28.6 g/dl (33.0-37.0); MEAN PLATELET VOLUME 10.6 fl (9.6-12.3); MONO # 1.4 10*3/uL (0.1-1.0); MONO % 14.4 % (3.0-9.0); NEUT # 7.4 10*3/uL (2.3-7.9); NEUT % 76.4 % (47.0-73.0); PLATELET COUNT AUTOMATED 225 10*3/uL (130-400); RED BLOOD COUNT 3.98 10*6/uL (4.10-5.10); RED CELL DISTRI WIDTH 18.3 % (0-14.5); WHITE BLOOD COUNT 9.7 10*3/uL (4.8-10.8)
[2018-04-27 14:00] LABS: ACT PARTIAL THROMBO TIME 33.4 SECONDS (20.8-31.5); INTERNATIONAL NORM RATIO 1.1 (2.0-3.5)
[2018-04-27 14:10] LABS: CREATININE 7.86 mg/dL (0.55-1.02); TOTAL PROTEIN 8.6 gm/dL (6.4-8.2); TROPONIN I 0.041 ng/ml (<0.045)
[2018-04-27 14:22] LABS: POTASSIUM 7.3 mmol/L (3.5-5.1)
--- NOTE | 2018-04-27 14:23 | NUR ---
DR BYERS AWARE OF CRITICAL LAB RESULT K+7.3
--- NOTE | 2018-04-27 14:35 | NUR ---
PATIENT KEEPS REPEATING "PLEASE HELP ME". PATIENT REQUESTING ICE CHIPS. DR BYERS NOTIFIED. ICE CHIPS GIVEN TO PATIENT.
[2018-04-27 14:49] VITALS: BP 104/68
--- NOTE | 2018-04-27 14:52 | NUR ---
PATIENT REPEATING AGAIN "WHY WONT THEY DO ANYTHING" TO SIGNIFICANT OTHER. DR BYERS WAS IN PATIENT ROOM ABOUT 5-10 MINUTES AGO.
[2018-04-27 15:45] VITALS: BP 109/61
--- NOTE | 2018-04-27 15:45 | NUR ---
PATIENT TAKEN TO 5TH FLOOR AT THIS TIME BY THIS NURSE. BEDSIDE REPORT GIVEN TO BRIAN MERAZ. PATIENT STILL STATING SHE "WANTS HER BED RAIL DOWN, WANTS TO LAY BACK, CANT BREATHE, TURN MY O2 TO 6L I CANT FEEL IT COMING OUT".
[2018-04-27 15:55] VITALS: BP 131/98
--- NOTE | 2018-04-27 15:55 | NUR ---
PATIENT REFUSED SKIN ASSESSMENT, PICTURE OF WOUND AND WOULD NOT LET THIS NURSE UNDRESS WOUNDS FOR VISUAL ASSESSMENT.
--- NOTE | 2018-04-27 15:55 | NUR ---
A 52, admitted to 5E, under the services of Dr. LAUREN BERNAL,MAIA Gould with a diagnosis of HYPERKALEMIA,PNEUMONITIS. Chief complaint is SOB. Patient arrived via bed from ER. Monitor applied. Initial assessment completed. Vital signs taken and recorded. DR. LAUREN BERNAL,MAIA Gould notified of admission to the unit. Orders received. See assessment for past medical history, medications and allergies. Patient oriented to unit. Clothing/patient valuable form completed. BRIAN HEWITT
--- NOTE | 2018-04-27 16:20 | NUR ---
AWARE OF PATIENT MEDICATIONS ARE VERIFIED. STATED TO PLACE DIET ORDER AND CONT. ATIVAN AND NORCO.
[2018-04-27] MEDS ORDERED: VELTASSA8.4 GM PO (16:27)
--- NOTE | 2018-04-27 16:50 | NUR ---
PATIENT CONTINUOUSLY YELLS OUT "HELP ME". PATIENT EDUCATED OUTSOLE COMPRESSOR LIGHT AND HELPED BACK INTO BED FROM BEDSIDE COMMODE. PATIENT DEMONSTRATED PROPER USE OF CALL LIGHT. CALL LIGHT LEFT WITHIN REACH.
--- NOTE | 2018-04-27 16:55 | NUR ---
PATIENT REFUSING TO WEAR EMISSION TECHNICIAN. RIPPED IT OFF ALONG WITH THE STICKERS.
--- NOTE | 2018-04-27 17:06 | NUR ---
PATIENT MEDICATED WITH ATIVAN AND NORCO FOR ANXIETY, YELLING OUT AND STATING "ALL OVER PAIN" 02/05. WILL MONITOR.
--- NOTE | 2018-04-27 17:50 | NUR ---
PATIENT AGAIN REFUSES TO WEAR SOCIAL SERVICE AGENCY DIRECTOR
--- NOTE | 2018-04-27 17:55 | NUR ---
PATIENT CONTINUES TO YELL OUT "HELP ME" WHEN ASK WHAT IS WRONG STATES SHE NEED HELPED PLACED BACK INTO BED. WHEN REPOSITIONED, PATIENT SITS BACK UP TO EDGE OF BED.
--- NOTE | 2018-04-27 18:19 | NUR ---
PATIENT STATED SHE NEED HER NURSE. STATES "I CANT BREATH." P.OX=94% ON 5LPM NC. PATIENT IS BREATHING IN SHORT FORCED BREATHS. PATIENT ENCOURAGED DEEP BREATHING, IN NOSE OUT MOUTH. PATIENT BREATHING IS NOW NO LONGER LABOURED. CALL LIGHT LEFT WITHIN REACH.
--- NOTE | 2018-04-27 20:00 | NUR ---
PATIENT TAKEN OFF THE FLOOR VIA BED FOR DIALYSIS.
[2018-04-27 20:03] VITALS: BP 160/88
--- NOTE | 2018-04-27 21:00 | NUR ---
PATIENT OFF FLOOR FOR DIALYSIS AT THIS TIME. WILL ASSESS AT A LATER TIME.
--- NOTE | 2018-04-27 22:40 | NUR ---
PATIENT BACK IN ROOM FROM DIALYSIS VIA BED. NC AT 5LPM APPLIED. CALL LIGHT WITHIN REACH.
--- NOTE | 2018-04-27 22:43 | NUR ---
NORCO AND ATIVAN GIVEN PER PT REQUEST FOR PAIN AND ANXIETY. PAIN RATED A 9/10 AND DECRIBED A SHARP PAIN. CALL LIGHT WITHIN REACH. WILL CONTINUE TO MONITOR AND REASSESS.
[2018-04-28] VITALS: BP 180/86
--- NOTE | 2018-04-28 06:44 | NUR ---
DR. CALIX NOTIFIED OF ROUTINE CONSULT FOR SHORTNESS OF BREATHE. PATIENT HX, LAB/TEST RESULTS REVIEWED. NO FURTHER ORDERS GIVEN AT THIS TIME.
[2018-04-28 06:50] LABS: HEMATOCRIT 36.6 % (37.0-47.0); HEMOGLOBIN 11.4 g/dl (12.0-16.0); MEAN CELL VOLUME 87.8 fl (81.0-99.0); MEAN CORPUSCULAR HGB 27.3 pg (27.0-31.0); MEAN CORPUSCULAR HGB CONC 31.1 g/dl (33.0-37.0); MEAN PLATELET VOLUME 10.9 fl (9.6-12.3); PLATELET COUNT AUTOMATED 236 10*3/uL (130-400); RED BLOOD COUNT 4.17 10*6/uL (4.10-5.10); RED CELL DISTRI WIDTH 18.1 % (0-14.5); WHITE BLOOD COUNT 10.3 10*3/uL (4.8-10.8)
[2018-04-28 07:13] LABS: CREATININE 6.38 mg/dL (0.55-1.02)
[2018-04-28 07:15] LABS: POTASSIUM 5.4 mmol/L (3.5-5.1)
[2018-04-28 07:25] LABS: TOTAL CELLS COUNTED 100 #CELLS
[2018-04-28 07:29] LABS: PLATELET SUFFICIENCY NORMAL (NORMAL)
--- NOTE | 2018-04-28 09:00 | NUR ---
Ski Instructor in to see patient. She is LTC resident at [facility] and will return there upon discharge. nurse discharge planner following.
--- NOTE | 2018-04-28 09:20 | NUR ---
PATIENT MEDICATED WITH NOROC AND ATIVAN PER DRS ORDERS FOR COMPLAINTS OF ANXIETY AND PAIN. RN WILL MONITOR FOR EFFECTVENESS.
--- NOTE | 2018-04-28 11:01 | NUR ---
PT REFUSED SATX AT THIS TIME..PT IN NO DISTRESS
--- NOTE | 2018-04-28 11:57 | NUR ---
PATIENT RESTING IN BED QUIETLY WITH EYES CLOSED AT THIS TIME. NO SIGNS OR SYMPTOMS OF DISTRESS. RESPIRATIONS ARE QUIET AND UNLABORED ON 5LITERS NASAL CANNULA. CCALL LIGHT WITHIN REACH.
--- NOTE | 2018-04-28 13:59 | NUR ---
PHYSICAL THERAPY Patient respectfully declines PT this date. Thank you for this referral. Fatoumata Castillo,PT
--- NOTE | 2018-04-28 14:00 | NUR ---
PATIENT OFF THE FLOOR TO DIALYSIS AT THIS TIME
--- NOTE | 2018-04-28 16:00 | NUR ---
PATIENT MEDICXATED WITH ATIVAN AT DIALYSIS FOR COMPLAINTS OF ANXIETY
--- NOTE | 2018-04-28 19:37 | NUR ---
PATIENT MEDICATED WITH NORCO FOR COMPLAINTS OF PAIN. PATIENT ALSO STATES SHE CANNOT BREATHE. PO2 SAT IS 98% ON 5LITERS NASAL CANNULA. PATIENT HAS VISITOR IN ROOM, IS YELLING OUT FOR NURSE. PATIENT EDUCATED EARTH AUGER OPERATOR LIGHT USAGE.
[2018-04-28 20:00] VITALS: BP 163/89
--- NOTE | 2018-04-28 21:25 | NUR ---
PATIENT MEDICATED WITH ATIVAN PER DRS ORDERS. SEE EMAR
[2018-04-29] VITALS: BP 149/69
--- NOTE | 2018-04-29 02:06 | NUR ---
PT MEDICATED WITH PRN ORDER FOR NORCO FOR C/O PAIN ALL OVER. WILL MONITOR EFFECTIVENESS OF MEDICATION
--- NOTE | 2018-04-29 02:36 | NUR ---
PT REQUESTED AND RECIEVED PRN ORDER FOR ATIVAN FOR C/O ANXIETY. WILL CONTINUE TO MONITOR PT AND EFFECTIVENESS OF MEDICATION
--- NOTE | 2018-04-29 04:39 | NUR ---
PT IS RESTING IN BED AT THIS TIME WITH HER EYES SHUT. THERE ARE NO SIGNS OR SYMPTOMS OF PAIN OR DISTRESS. RESPIRATIONS ARE EASY AND NONLABORED ON 5L NASAL CANNULA. PT HAS BEEN VERY AGITATED THROUGHOUT THE NIGHT WITH SEVERAL EPISODES OF YELLING OUT. SHE REFUSED THE BiPAP AND RESPIRATORY TREATMENTS THROUGHOUT THE NIGHT. WILL CONTINUE TO MONITOR.
--- NOTE | 2018-04-29 04:46 | NUR ---
24 HR chart check completed.
--- NOTE | 2018-04-29 04:48 | NUR ---
PRN ORDER FOR NORCO EFFECTIVE PER PT
[2018-04-29 06:48] LABS: CREATININE 5.69 mg/dL (0.55-1.02)
[2018-04-29 08:01] VITALS: BP 150/92
--- NOTE | 2018-04-29 08:55 | NUR ---
PRN Ativan and [place] given per patient request for chronic/phantom pain and anxiety. Will monitor.
--- NOTE | 2018-04-29 09:45 | NUR ---
Ativan and [place] effective. Patient comfortable without any signs of distress.
[2018-04-29 10:53] VITALS: BP 116/57
--- NOTE | 2018-04-29 10:54 | NUR ---
Called Dr. Chin for patient c/o chest pain and something for congestion. See new orders.
--- NOTE | 2018-04-29 11:14 | NUR ---
Dr. Asencio was contacted and consulted for patients c/o chest pain. See new orders.
[2018-04-29 12:00] VITALS: BP 135/71
[2018-04-29 16:00] VITALS: BP 129/68
--- NOTE | 2018-04-29 16:43 | NUR ---
PATIENT C/O CHRONIC PAIN AND ANXIETY, MEDICATED WITH PO PRN NORCO AND ATIVAN. WILL MONITOR FOR EFFECTIVENESS. VISITOR AT BEDSIDE. CALL LIGHT WITHIN REACH.
[2018-04-29 20:00] VITALS: BP 134/76
--- NOTE | 2018-04-29 22:48 | NUR ---
patient medicated with ativan and norco for c/o pain and anxiety. see emar. reinforced use of call light
[2018-04-30] VITALS: BP 120/58
--- NOTE | 2018-04-30 02:46 | NUR ---
24 HR chart check completed.
--- NOTE | 2018-04-30 06:33 | NUR ---
ATIVAN AND NORCO GIVEN FOR C/O CHRONIC PAIN AND ANXIETY. SEE EMAR. REINFORCED USE OF CALL LIGHT.
[2018-04-30 08:00] VITALS: BP 116/70
--- NOTE | 2018-04-30 08:55 | NUR ---
PHYSICAL THERAPY PAtient at dialysis. Fatoumata Castillo,PT
--- NOTE | 2018-04-30 09:00 | NUR ---
Signals Intelligence Superintendent in to see patient. She is currently in dialysis. When medically stable she will be discharged to [facility]. production planner scheduler following.
--- NOTE | 2018-04-30 11:14 | NUR ---
Patient resting quietly with no c/o discomfort. Respirations easy and regular. No distress noted.Vital signs stable.Currently still in room 514 for dialysis. ADRIANA VILA
--- NOTE | 2018-04-30 11:52 | NUR ---
PT RETURNED FROM DIALYSIS.PT STABLE AT THIS TIME. REPORT RECIEVED FROM [facility] RN. PT C/O GENERALIZED PAIN 02/05. VERY ANXIOUS.ENCOURAGEMENT PROVIDED. VOICES NO OTHER NEEDS A THIS TIME. CALL LIGHT IN REACH.
[2018-04-30 12:00] VITALS: BP 130/69
--- NOTE | 2018-04-30 12:07 | NUR ---
ATIVAN 1 MG AND NORCO GIVEN FOR C/O ANXIETY AND GENERALIZED PAIN,02/05.
--- NOTE | 2018-04-30 13:09 | NUR ---
ASSISTED [facility],RN AT BEDSIDE FOR MEASUREMENTS OF THE WOUND. SHE REFUSED PHOTOGRAPHS OF THE RIGHT HEEL.OSCAR PIERRE NOTIFIED DR VACA VIA TELEPHONE WHILE AT BEDSIDE TO SEE PT IMMEDIATELY. WOUND TO RIGHT HEEL FOUL ODOR NOTED.PT ENCOURAGED TO PARTICIPATE IN ASSISTING WITH HER OWN CARE.WAS COMPLACENT TO COOPERATE. SITITNG UP AT BEDSIDE AWAITING DR VACA TO ROUND.
--- NOTE | 2018-04-30 13:38 | NUR ---
DR SMILEY AND DR VACA ROUNDED AND SEEN PT. ORDERS RECIEVED.
--- NOTE | 2018-04-30 13:51 | NUR ---
DRESSING CHANGE TO RIGHT HEEL COMPLETED PER PHYSICIAN ORDER. PT COMPLACENT TO DRESSING CHANGE BUT NOT OVERLY COOPERATIVE.
--- NOTE | 2018-04-30 14:09 | NUR ---
PHYSICAL THERAPY PAtient with multiple staff and lab. Fatoumata Castillo ,PT
--- NOTE | 2018-04-30 14:10 | NUR ---
KRATHIKEYAN MIDDLETON [id number] Please refer to the physician's history and physical for past medical history, comorbid conditions, and allergies. Diagnosis: PNEUMONITIS,HYPERKALEMIA Anatoliy Score: 18,LOW OR NO RISK WOUND DESCRIPTIONS: Location of the wound: right heel Type of wound: stage 4 Thickness: Full Size: 7.0cm x 9.8cm x <0.1cm Tunneling: none Undermining: none Sinus Tract: none Presence of Exudate: Purulent Amount: Moderate Color: Black, yellow, green, red Odor: Foul Periwound Skin Appearance: Erythema Wound edges: approximated Pain (associated with wound): tender to touch How does patient state this happened? pt states she has had this for a while now Location of the wound: left lateral foot Type of wound: surigcal Thickness: Full Size: 5.5cm x 0.6cm x <0.1cm Tunneling: none Undermining: none Sinus Tract: none Presence of Exudate: none Amount: None Color: Brown, yellow Odor: None Periwound Skin Appearance: Normal Wound edges: closed Pain (associated with wound): none at time of assessment How does patient state this happened? pt stated its healed per the fpc Surface the patient is resting on: Isoflex SKIN PREVENTION RECOMMENDATION: 1. Pressure redistribution support surface as appropriate 2. Elevate heels 3. Remove boots/TEDS every shift and reapply 4. Head of bed 30 degrees as tolerated 5. Assess nutrition and hydration 6. Manage moisture 7. Avoid the use of containment devices while in bed 8. Use absorptive products on surfaces limit layers of linens on bed 9. Turn and reposition every 1-2 hours in bed and every 1 hour in chair as tolerated 10. Weight shifts every 15 minutes while up in chair 11. Offloading with pillows or device to keep heels elevated off bed 12. Monitor skin at least every shift 13. Inspect under medical devices twice a day WOUND TREATMENT RECOMMENDATIONS: Consult podiatry for possible debridement of right heel. Wound culture to right heel. Venous and arterial studies BLE. MRI to right foot due to non-healing wound. Cleanse right heel with nss and apply adaptic and cover with dsd daily and prn for soiling.
--- NOTE | 2018-04-30 14:16 | NUR ---
Recommend follow up for wound care in outpatient setting patient being discharge to another facility at this time.
[2018-04-30 14:26] LABS: BASO % 0.3 % (0.0-1.0); EOS % 0.1 % (1.0-4.0); HEMATOCRIT 38.9 % (37.0-47.0); HEMOGLOBIN 11.2 g/dl (12.0-16.0); LYMPH # 0.4 10*3/uL (1.3-4.4); MEAN CELL VOLUME 91.1 fl (81.0-99.0); MEAN CORPUSCULAR HGB 26.2 pg (27.0-31.0); MEAN CORPUSCULAR HGB CONC 28.8 g/dl (33.0-37.0); MEAN PLATELET VOLUME 10.1 fl (9.6-12.3); MONO % 9.7 % (3.0-9.0); NEUT # 8.8 10*3/uL (2.3-7.9); NEUT % 85.3 % (47.0-73.0); PLATELET COUNT AUTOMATED 218 10*3/uL (130-400); RED BLOOD COUNT 4.27 10*6/uL (4.10-5.10); RED CELL DISTRI WIDTH 18.1 % (0-14.5); WHITE BLOOD COUNT 10.3 10*3/uL (4.8-10.8)
--- NOTE | 2018-04-30 14:32 | NUR ---
PT OFF FLOOR TO MRI,US BLE AND XRAYS RIGHT FOOT/ANKLE, VIA TRANSPORT.
[2018-04-30 14:43] LABS: CREATININE 3.65 mg/dL (0.55-1.02)
[2018-04-30 14:53] LABS: POTASSIUM 3.9 mmol/L (3.5-5.1)
--- NOTE | 2018-04-30 15:15 | NUR ---
DR VACA NOTIFIED OF PT REFUSING ALL TESTING TO RIGHT FOOT, PREVIOUSLY ORDERED BY PODIATRY.
--- NOTE | 2018-04-30 15:18 | NUR ---
DR JADE'S OFFICE NOTIFIED OF NEW CONSULT FOR INFECTED HEEL.
--- NOTE | 2018-04-30 15:22 | NUR ---
NOTIFIED DR MITCHELL OF PT REFUSING TESTING FOR POSSIBLE SX IN AM.INAPPROPRIATE BEHAVIOR NOTED. YELLING OUT,AND SCREAMING "I CAN'T CANT LAY DOWN".ORDERS RECIEVED FOR PYSCH CONSULT.
[2018-04-30 16:00] VITALS: BP 127/67
--- NOTE | 2018-04-30 16:17 | NUR ---
NOTIFIED DR VACA PT REFUSED XR OF RIGHT AND US BLE FOR SECOND ATTEMPT.
--- NOTE | 2018-04-30 16:41 | NUR ---
AARON BRYAN NOTIFIED ME THAT HOUSEKEEPING OVERHEARD PT SPEAKING ON TELEPHONE REQUESTING PAIN MEDS TO BE BROUGHT TO THE HOSPITAL.I NOTIFIED ORTHOPEDIC RADIOLOGIC TECHNOLOGIST AND ADDRESSED THE CONVERSATION IMMEDIATELY WITH THE PT. I INFORMED THE PT THAT IF IN THE EVENT THAT "SOMEONE" BROUGHT HER PAIN MEDICATION FROM THE OUTSIDE I WOULD NOTIFY DR AGUILAR IMMEDIATELY TO D/C PAIN MEDS . I EXPLAINED I COULD NOT ,IN GOOD DILEEP MEDICATE HER IF I THOUGHT SHE WAS RECIEVING MEDICATION FROM OUTSIDE THE HOSPITAL. PT TEARFUL AND DENIES THIS AND STATED "I DIDN'T SAY THAT TO ANYONE.I NOTIFIED THE PA TO MONITOR THE ROOM AND NOTIFY ME OF ANY VISITORS.
--- NOTE | 2018-04-30 17:09 | NUR ---
PT SON CALLED TO SPEAK WITH ME REGARDING PT PAIN MEDS. I INFORMED HIM OF PREVIOUS INCIDENT AND SON STATED"HE UNDERSTANDS AND HE KNOWS BECAUSE THIS IS WHAT SHE DOES". HE INFORMED ME THAT IF ANYONE BRINGS HER DRUGS IT WILL BE A YOUNG GIRL,EARLY TWENTIES. STATED BOYFRIEND WILL CALL HIM AND HE WILL COME DOWN AND TAKE CARE OF THE PROBLEM. SON APOLIGIZED AT THIS TIME. HIS CONCERN IS FOR HER TO RECIEVE TREATMENT AT THIS TIME FOR HER RIGHT FOOT.
--- NOTE | 2018-04-30 17:25 | NUR ---
PT LESS TEARFUL AND COOPERATIVE WITH CARE.AKNOWLEDGES PREVIOUS DISCUSSION REGARDING PAIN MEDICATION. INFORMED HER PAIN MEDS WERE NOT DUE UNTIL 6PM AND LONG THERE HAD BEEN NO VISITORS OTHER THAN BOYFRIEND I WOULD MEDICATE HER.
--- NOTE | 2018-04-30 18:14 | NUR ---
ATIVAN 1 MG AND NORCO 5/325 MG GIVEN FOR C/O ANXIETY AND GENERALIZED PAIN, 01/06.
--- NOTE | 2018-04-30 19:15 | NUR ---
ATIVAN AND NORCO EFFECTIVE PER PT. PT RESTING IN BED, APPEARS TIRED AT THIS TIME, ALSO APPEARS CALM. ASSESSMENT COMPLETE. BANDAGE TO RIGHT FOOT IN TACT. PT MADE AWARE OF NPO STATUS AT MIDNIGHT. BOYFRIEND AT BEDSIDE, ALL SAFETY MEASURES IN PLACE. CALL LIGHT IN REACH.
[2018-04-30 20:00] VITALS: BP 113/51
--- NOTE | 2018-04-30 22:00 | NUR ---
PT CALLING OUT FOR "NURSE" AND CAN BE HEARD AT NURSE STATION. PT GIVEN 1:1 ON USE OF CALL LIGHT DUE TO DISRUPTION OF OTHER PATIENTS THAT MAY BE TRYING TO SLEEP. PT STATES THAT SHE UNDERSTANDS. WILL CONTINUE TO MONITOR.
--- NOTE | 2018-04-30 23:29 | NUR ---
PT GIVEN ATIVAN 1 MG AND NORCO FOR C/O ANXIETY AND GENERALIZED BODY PAIN, RATING IT A 10/10. WILL MONITOR FOR EFFECTIVENESS. CALL LIGHT IN REACH.
[2018-05-01] VITALS: BP 118/58
--- NOTE | 2018-05-01 00:29 | NUR ---
ATIVAN AND NORCO EFFECTIVE AT THIS TIME. PT RESTING IN BED, RESPIRATIONS EASY AND UNLABORED. ALL SAFETY MEASURES IN PLACE. CALL LIGHT IN REACH.
--- NOTE | 2018-05-01 05:07 | NUR ---
PATIENT ATTENDANT OFFERS TO ASSIST PT IN WASHING UP THIS MORNING DUE TO THE POSSIBILITY OF GOING TO SURGERY LATER ON TODAY. PT REFUSES TO BE WASHED UP AT THIS TIME. THIS NURSE ATTEMPTS TO TALK TO PT ABOUT ALLOWING US TO ASSIST HER, SHE REFUSES AGAIN. WILL TRY AT A LATER TIME.
[2018-05-01 08:00] VITALS: BP 124/68
--- NOTE | 2018-05-01 09:00 | NUR ---
PHYSICAL THERAPY Patient having tests at this time. Fatoumata Castillo,PT
--- NOTE | 2018-05-01 09:00 | NUR ---
Line Patrolman in to see patient. No new needs or request at this time. When medically stable she will be discharged to [facility]. communications planner following.
--- NOTE | 2018-05-01 11:19 | NUR ---
Updates faxed to [facility] Attn:
--- NOTE | 2018-05-01 11:50 | NUR ---
PATIENTS GLUCOSE CRITICALLY LOW AT THIS TIME. ORDERED STAT REFLEX. ADMINISTERED ORANGE JUICE AND CRACKERS. PATIENTS MEAL ALSO IN ROOM AT THIS TIME. PATIENT NOT SYMPTOMATIC AT THIS TIME.
[2018-05-01 12:00] VITALS: BP 148/67
--- NOTE | 2018-05-01 12:15 | NUR ---
PATIENTS GLUCOSE NOW 72.
--- NOTE | 2018-05-01 12:20 | NUR ---
STAT REFLEX CAME BACK AT 35. DR. AGUILAR AWARE. STATED TO ORDER PATIENT DEXTROSE PRN INCASE SHE DROPS AGAIN.
--- NOTE | 2018-05-01 12:55 | NUR ---
BLOOD SUGAR 101 AT THIS TIME.
--- NOTE | 2018-05-01 15:03 | NUR ---
DRY STERILE DRESSING PLACED TO RIGHT FOOT AT THIS TIME PER PHYSICAN ORDERS.
[2018-05-01 16:00] VITALS: BP 114/52
[2018-05-01 20:00] VITALS: BP 125/61
[2018-05-02] VITALS: BP 102/61
--- NOTE | 2018-05-02 05:29 | NUR ---
PATIENT MEDICATED WITH ATIVAN AND PERCOCET PER REQUEST. C/O BLE PAIN AND STATES SHE IS ANXIOUS. WILL CHECK EFFECTIVENESS.
[2018-05-02 07:57] VITALS: BP 120/62
--- NOTE | 2018-05-02 09:00 | NUR ---
Sales Product Manager in to see patient. She is currently not in her room. Will follow up at a later time.
--- NOTE | 2018-05-02 09:02 | NUR ---
I would recommend if standardize treatment is infective after May 29, 2018. to follow up with the wound care center for possible HBO treatments if patient meet requirements.
--- NOTE | 2018-05-02 10:00 | NUR ---
PHYSICAL THERAPY PAtient at dialysis this am. Fatoumata Castillo,PT
--- NOTE | 2018-05-02 11:31 | NUR ---
DR STANFORD AWARE OF CONSULT. NO NEW ORDERS RECEIVED.
--- NOTE | 2018-05-02 11:31 | NUR ---
PATIENT RECEIVED ATIVAN FOR ANXIETY.
[2018-05-02 12:00] VITALS: BP 137/49
--- NOTE | 2018-05-02 14:32 | NUR ---
THIS NURSE CALLED TO ROOM WITH AN AIDE STATING PATIENT WAS ON THE FLOOR. PATIENT'S VISITOR STATES HE TRIED TO HELP THE PATIENT FROM THE CHAIR TO THE BED, BUT THE PATIENT LET HER KNEES GIVE OUT AND WAS LOWERED TO THE FLOOR. AIDES, NURSE, AND PHYSICAL THERAPY HELPED PATIENT BACK TO BED. PATIENT DOES NOT COMPLAIN OF PAIN AT THIS TIME. PATIENT STATES SHE "DID NOT FALL. SHE WAS LOWERED TO THE FLOOR" PATIENT HAS A SCRAPE TO LEFT KNEE. MEASUREMENTS AND DOCUMENTATION WILL BE DONE. POWER BRAKE REBUILDER NOTIFED.
--- NOTE | 2018-05-02 14:36 | NUR ---
DR AGUILAR NOTIFIED OF PATIENT FALLING.
--- NOTE | 2018-05-02 14:53 | NUR ---
PT. REFUSED AEROSOL TREATMENT.
[2018-05-02 16:00] VITALS: BP 139/70
[2018-05-02 20:00] VITALS: BP 154/72
--- NOTE | 2018-05-02 20:00 | NUR ---
SPOKE WITH PATIENT ABOUT REASON FOR TRANSFER. PATIENT VERBALIZED UNDERSTANDING. BOYFRIEND IN ROOM WITH PATIENT AT THIS TIME.
--- NOTE | 2018-05-02 20:07 | NUR ---
PATIENT REFUSED WOUND CARE PHOTOS
--- NOTE | 2018-05-02 20:07 | NUR ---
PRN ATIVAN AND NORCO GIVEN FOR PT COMPLAINTS OF ANIXETY AND FOOT, HAND AND ANKLE PAIN RATING IT 10/10. CALL LIGHT WITHIN REACH, WILL MONITOR
--- NOTE | 2018-05-02 22:07 | NUR ---
PATIENT LEFT WITH ASI AT THIS TIME. BELONGINGS WENT WITH PATIENT
--- NOTE | 2018-05-02 22:38 | NUR ---
REPORT GIVEN TO NICOLASA AT [address]
== END 2018-05-02 22:07 | disposition short-term general hospital (02) | DRG 189 ==
LOC: ED 13:15 → 5E 14:53 → EDHOLD 14:53 → 5E 15:06
PROVIDERS: Emergency Medicine; Podiatrist Foot & Ankle Surgery; ADMIT Internal Medicine
PROC: 5A1D70Z Performance of Urinary Filtration, Intermittent, Less than 6 Hours Per Day (ICD-10-PCS; principal; 2018-04-30)
PROC: 5A1D70Z Performance of Urinary Filtration, Intermittent, Less than 6 Hours Per Day (ICD-10-PCS; 2018-05-01)
DX: J96.21 Acute and chronic respiratory failure with hypoxia (principal); J18.9 Pneumonia, unspecified organism; N18.6 End stage renal disease; J44.1 Chronic obstructive pulmonary disease with (acute) exacerbation; I13.0 Hypertensive heart and chronic kidney disease with heart failure and stage 1 through stage 4 chronic kidney disease, or unspecified chronic kidney disease; E87.1 Hypo-osmolality and hyponatremia; I50.32 Chronic diastolic (congestive) heart failure; M86.8X7 Other osteomyelitis, ankle and foot; J44.0 Chronic obstructive pulmonary disease with (acute) lower respiratory infection; I82.411 Acute embolism and thrombosis of right femoral vein; E11.69 Type 2 diabetes mellitus with other specified complication; G89.4 Chronic pain syndrome; F32.9 Major depressive disorder, single episode, unspecified; E11.42 Type 2 diabetes mellitus with diabetic polyneuropathy; E11.43 Type 2 diabetes mellitus with diabetic autonomic (poly)neuropathy; R62.7 Adult failure to thrive; K31.84 Gastroparesis; E87.5 Hyperkalemia; G47.33 Obstructive sleep apnea (adult) (pediatric); G25.81 Restless legs syndrome; D64.9 Anemia, unspecified; E11.22 Type 2 diabetes mellitus with diabetic chronic kidney disease; F41.1 Generalized anxiety disorder; K59.09 Other constipation; E11.649 Type 2 diabetes mellitus with hypoglycemia without coma; L89.619 Pressure ulcer of right heel, unspecified stage; E11.51 Type 2 diabetes mellitus with diabetic peripheral angiopathy without gangrene; L97.513 Non-pressure chronic ulcer of other part of right foot with necrosis of muscle; F17.210 Nicotine dependence, cigarettes, uncomplicated; E78.5 Hyperlipidemia, unspecified; E03.9 Hypothyroidism, unspecified; E66.01 Morbid (severe) obesity due to excess calories; Z88.8 Allergy status to other drugs, medicaments and biological substances; Z88.1 Allergy status to other antibiotic agents; Z91.041 Radiographic dye allergy status; Z91.013 Allergy to seafood; Z97.4 Presence of external hearing-aid; Z79.899 Other long term (current) drug therapy; Z87.440 Personal history of urinary (tract) infections; Z98.891 History of uterine scar from previous surgery; Z90.49 Acquired absence of other specified parts of digestive tract; Z98.51 Tubal ligation status; Z83.3 Family history of diabetes mellitus; Z80.0 Family history of malignant neoplasm of digestive organs; Z99.2 Dependence on renal dialysis; Z89.422 Acquired absence of other left toe(s)

== ENCOUNTER 2018-05-12 23:54 | Inpatient (IN) | payer MEDICARE ==
[~2018-05-12] VITALS: Ht 162.6 cm; Wt 98.2 kg
--- NOTE | ~2018-05-12 | PR ---
[place], [place] PROGRESS NOTE NAME: [facility]AN MIDDLETON [id number] UNIT #: [id number] ROOM: 426 DOCTOR: MELISSA CORTES MD BIRTHDATE: [birth year] DOS: SUBJECTIVE: The patient is doing well. She did undergo the debridement yesterday. An external fixator and wound VAC was added. The patient feels though this morning okay except she does have pain. She denies having any new complaints. OBJECTIVE: VITAL SIGNS: Graphic trend shows a pressure of 100/43, pulse of 68, respirations 19, temperature 98.3. LUNGS: Clear. HEART: Regular. ABDOMEN: Obese. EXTREMITIES: Without any edema. ASSESSMENT AND PLAN: 1. Osteomyelitis of the calcaneum, status post debridement with external fixator and wound vacuum-assisted closure. The patient is on antibiotics, meropenem and vancomycin for methicillin-resistant Staphylococcal aureus as well as extended-spectrum beta-lactamase Proteus. The patient will continue 6 weeks of antibiotics as an outpatient. Social Service will be consulted for arrangement of antibiotics at the long term. 2. End-stage renal failure, on dialysis. She is to receive ultrafiltration today. 3. Chronic pain, already on pain medications. Discussed with nursing staff and the patient. MELISSA CORTES MD CM:PNTRANS [phone] MELISSA CORTES MD 05/15/18 2157 interface
--- NOTE | ~2018-05-12 | PR ---
[place], [place] PROGRESS NOTE NAME: [facility]AN MIDDLETON [facility]: [id number] UNIT #: [id number] ROOM: 426 DOCTOR: MELISSA CORTES MD BIRTHDATE: [birth year] DOS: SUBJECTIVE: The patient is doing okay, does not have any new complaints. OBJECTIVE EXAMINATION: GENERAL: She is awake, alert and oriented. VITAL SIGNS: Graphic trend shows a pressure of 147/61, pulse of 69, respirations 20, temperature 98.3. LUNGS: Clear. HEART: Regular. ABDOMEN: Obese. EXTREMITIES: Without any edema and the right leg is heavily wrapped up with external fixators. ASSESSMENT AND PLAN: 1. Calcaneal osteomyelitis, on IV antibiotics, status post debridement, external fixator placement and wound VAC. 2. Adult failure to thrive. She has been approved with [facility], so plan to discharge her today. 3. End-stage renal failure, on dialysis. She should be able to receive a dialysis there, when she gets to the [facility]. MELISSA CORTES MD CM:PNTRANS [phone] MELISSA CORTES MD 05/21/18 0907 interface
--- NOTE | ~2018-05-12 | PR ---
[place], [place] PROGRESS NOTE NAME: [id number] UNIT #: [id number] ROOM: 426 DOCTOR: MELISSA CORTES MD BIRTHDATE: [birth year] DOS: 05/17/2018 SUBJECTIVE: The patient is about the same, does not have any new complaints. OBJECTIVE: VITAL SIGNS: Blood pressure is 114/56, pulse of 66, respirations 17, temperature 98.6. LUNGS: Clear. HEART: Regular. ABDOMEN: Obese, soft, nontender. EXTREMITIES: Without any edema. LABORATORY DATA: None available this morning. Blood sugar readings were 169, 193 232. These are the last three readings. ASSESSMENT AND PLAN: 1. Osteomyelitis of the calcaneum status post calcanectomy, external fixator application and a wound VAC, on IV antibiotics for ESBL, Proteus mirabilis and MRSA. The patient to go to [facility] when bed is available, insurance certification is pending. I will discharge the patient hoping that the patient can go today. 2. Type 2 diabetes mellitus, fairly controlled. 3. End-stage renal failure, on dialysis, stable without any evidence of CHF or volume overload. MELISSA CORTES MD CM:PNLISETH [phone] MELISSA CORTES MD 05/17/184 interface
--- NOTE | ~2018-05-12 | O ---
[place], [place] OPERATIVE NOTE NAME: KARTHIKEYAN MIDDLETON [facility] #: [id number] UNIT #: [id number] ROOM: 426 DOCTOR: ERIKA MOSES DPM BIRTHDATE: [birth year] DOS: 05/14/2018 SURGEON: Erika Moses DPM ASSISTANTS: 1. Dr. Anthony Nicole, fellow. 2. Dr. Everardo Sanchez, PGY2. 3. Dr. Blake Levine, PGY3. PREOPERATIVE DIAGNOSES: 1. Osteomyelitis of the calcaneus. 2. Gastroc soleus equinus. 3. 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 POSTOPERATIVE DIAGNOSES: 1. Osteomyelitis of the calcaneus. 2. Gastroc soleus equinus. 3. 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 PROCEDURE PERFORMED: 1. Bone debridement. 2. Achilles tendon lengthening. 3. Application of PriMatrix. 4. Reduction. 5. Application of multilevel external fixator ([place], bar to clamp). 6. Application of wound VAC. PROCEDURE IN DETAIL: The patient was seen preoperative holding area. Appropriate site marking performed. The patient agreed and signed the consent. Agreed with perioperative management and followup as well and she understood the pros, cons, risks and benefits of the procedure. Again, she was given the options of amputation and she did not want that, she wants to try limb salvage. She was brought in the OR, placed well-padded on the OR table, where anesthesia was achieved. Once achieved, appropriate timeout was performed and then the prep of her foot and lower leg up to above the knee was performed. PROCEDURE #1: A full thickness sharp excision of the gangrenous tissue, which measures 6 cm x 5 cm was carried down to bone and this was excised in total. There was an odor with significant amount of gangrenous tissue being excised and removed. Gram stain, aerobic, anaerobic, fungal, acid fast and culture were sent of the right soft tissues as well as a biopsy of the right soft tissue that was excised. Next, an ostial mallet were used as well as partial saw and a debridement was performed angulated to resect the inferior and posterior aspect of the calcaneus was debrided. Bone was sent for pathology. Bone was sent for Gram stain, aerobic, anaerobic, fungal, acid fast and biopsy as well. Next, irrigation was used, power irrigation was used to irrigate these tissues. All the tissues were clean, healthy and pink. She was bleeding adequately and it looked like tissue perfusion was nice at this time. Next, a clean osteotome and mallets were used, more bone was resected and this was sent for pathology and bone biopsy for a clean proximal debridement, where we thought all the infection [place], [place] OPERATIVE NOTE NAME: KARTHIKEYAN MIDDLETON UNIT #: [id number] ROOM: 426 DOCTOR: ERIKA MOSES DPM BIRTHDATE: [birth year] was now gone and resected. This was sent for pathology. PROCEDURE #2. Application of PriMatrix Ag. Next, attention was turned to the inferior posterior calcaneus. At this time, the Integra PriMatrix Ag was applied. This was stacked and discovered exposed bone. PROCEDURE #3: Reduction of the right ankle joint. Reduction of the instability of the ankle was performed. We did intraoperative and preop views with stress test and drawer sign of the ankle joint, specifically. There is no gross frontal plane and/or anterior to posterior displacement of the talus on the tibia; however, there is significant amount of dorsiflexion instability and there was a clinical varus to her hindfoot and ankle. At this point in time, a reduction was done stabilizing the hindfoot and ankle. PROCEDURE #4: Application of multilevel Meenakshi bar to clamp external fixator. At this point in time, two half pins were placed in the proximal tibia under radiographic fluoroscopy, two half pins were placed in the calcaneus superiorly, where healthy tissues were below the subtalar joint, full length, and 2 pins were placed medially one in the cuneiform to the lateral tarsal bones and one in cuboid into the medial tarsal bones. At this point in time, with the reduction held in place, the bar to clamps were clamped and reduced this deformity in neutral position maintaining good anatomic alignment, checked it under fluoroscopy. PROCEDURE #5: Application of negative pressure therapy, wound VAC, KCI VAC. At this point in time, with the use of a usual sterile technique, wound VAC was applied. A sponge was inserted over top of the Adaptic, which was placed over the Integra PriMatrix Ag. This is applied over top of that and then the appropriate steps were taken for sterile application of wound VAC set at 200 continuous and the remaining wounds were dressed with Kerlix, 4 x 4s, Isidro in a sterile compressive fashion. Her foot and ankle are in good anatomic alignment. The external fixator was tightened very nicely. She tolerated the procedure and anesthesia well and left OR with vital signs stable and vascular intact. Her digits are warm, mobile with good cap fill time. [place], [place] OPERATIVE NOTE NAME: KARTHIKEYAN MIDDLETON UNIT #: [id number] ROOM: 426 DOCTOR: ERIKA MOSES DPM BIRTHDATE: [birth year] ERIKA MOSES DPM CM:OPRECORD:OPERATIVE NOTE [id number] ERIKA MOSES DPM 06/04/18 1511 interface
--- NOTE | ~2018-05-12 | PR ---
[place], [place] PROGRESS NOTE NAME: KARTHIKEYAN MIDDLETON UNIT #: [id number] ROOM: 426 DOCTOR: DORY NINO DO BIRTHDATE: [birth year] DOS: 05/14/2018 SUBJECTIVE: The patient was seen on dialysis today and overall is tolerating the treatment well. She notes that her breathing does feel better today than previously. Denies any chest pain or palpitations. Denies any anorexia, nausea or vomiting. PHYSICAL EXAMINATION: VITAL SIGNS: Blood pressure is 102/79, pulse of 64, respirations 18, temperature is 96 degrees Fahrenheit. GENERAL: A 52-year-old female seen on dialysis, tolerating her treatment well. NECK: There is no JVD appreciated. LUNGS: Slight dementia. HEART: Regular without an S3, rub, murmur could not be appreciated. ABDOMEN: Soft. EXTREMITIES: No clubbing, cyanosis. She has +2 pretibial and pedal edema. She also has +1 presacral edema noted and +1 flank edema noted. LABORATORY DATA: From today, none. IMPRESSION/PLAN: 1. End-stage renal disease. No electrolytes today. Symptomatically her breathing is improved. She does remain volume overloaded. Attempting to challenge down her dry weight as able as her blood pressure allows prior to anemia and hemoglobin and hematocrit today. 2. Hypertension. Blood pressure is currently acceptable. 3. Diabetic foot ulcer with question of osteomyelitis. She has been seen by Podiatry with plans for an I and D and potential bone debridement today post-dialysis, has been receiving vancomycin and did receive a dose of meropenem yesterday. RECOMMENDATIONS: Await surgery. We will continue to evaluate dry weight down as able with dialysis. We will consider additional treatment. We will consider adding ultrafiltration treatment as indicated to aid with volume balance. Otherwise, no change in her treatment today. [place], [place] PROGRESS NOTE NAME: KARTHIKEYAN MIDDLETON UNIT #: [id number] ROOM: 426 DOCTOR: DORY NINO DO BIRTHDATE: [birth year] DORY NINO DO CM:PNTRANS [phone] DORY NINO DO 06/02/18 0854 interface
--- NOTE | ~2018-05-12 | PR ---
[place], [place] PROGRESS NOTE [id number] UNIT #: [id number] ROOM: 426 DOCTOR: MELISSA CORTES MD BIRTHDATE: [birth year] DOS: 05/19/2018 SUBJECTIVE: The patient is doing well, does not have any new complaints, awaiting dialysis today. OBJECTIVE: VITAL SIGNS: Graphic trend shows pressure 132/70, pulse of 76, respirations 18. LUNGS: Diminished breath sounds, clear. HEART: Regular. ABDOMEN: Soft. EXTREMITIES: With external fixator and a wound VAC. Dressing is dry. ASSESSMENT AND PLAN: 1. The patient with osteomyelitis of the right calcaneum, status post debridement, external fixator wound VAC placement. She has ESBL E. coli, Proteus mirabilis and MRSA of the wound, which has been appropriately treated with antibiotics. 2. Adult failure to thrive. The patient has requested that she be sent to [facility] rather than [facility] waiting for placement, hopefully can be arranged for tomorrow. 3. Type 2 diabetes mellitus. Blood sugar is controlled. MELISSA CORTES MD CM:PNTRANS [phone] MELISSA CORTES MD 06/16/18 0842 interface
--- NOTE | ~2018-05-12 | PR ---
[place], [place] PROGRESS NOTE NAME: [id number] #: [id number] ROOM: 426 DOCTOR: MELISSA CORTES MD BIRTHDATE: [birth year] DOS: SUBJECTIVE: The patient is about the same, does not have any new complaints other than pain. OBJECTIVE: VITAL SIGNS: Graphic trend shows blood pressure 119/48, pulse of 62, respirations 18, temperature 98.5. LUNGS: Diminished breath sounds, clear. HEART: Regular. ABDOMEN: Obese, soft, nontender. EXTREMITIES: Without any edema on the left. Right again with external fixator. ASSESSMENT AND PLAN: 1. Calcaneal osteomyelitis with a large wound on the heel, which was debrided and calcanectomy was performed. The patient is stable. Continue IV antibiotics. Plan is to discharge her tomorrow to [facility]. 2. Proteus mirabilis. Wound culture with Proteus mirabilis as well as methicillin-resistant staphylococcus aureus. Again IV vancomycin and [facility]. She also has extended-spectrum beta-lactamases escherichia coli in the wound. 3. Type 2 diabetes mellitus, insulin-dependent, controlled. Blood sugar this morning is 115. Arrangements will be made for IV antibiotics as well as wound VAC [facility] the [facility] for tomorrow. MELISSA CORTES MD CM:PNTRANS [phone] MELISSA CORTES MD 05/16/18 1434 interface
--- NOTE | ~2018-05-12 | PR ---
[place], [place] PROGRESS NOTE NAME: KARTHIKEYAN MIDDLETON UNIT #: [id number] ROOM: 426 DOCTOR: MELISSA CORTES MD BIRTHDATE: [birth year] DOS: 05/20/2018 SUBJECTIVE: The patient is about the same, does not have any new complaints, resting comfortably. OBJECTIVE: VITAL SIGNS: Blood pressure is 124/58, pulse of 76, respirations 14, afebrile. LUNGS: Clear. HEART: Regular. ABDOMEN: Obese, soft. EXTREMITIES: Right leg still pretty heavily bandaged. ASSESSMENT AND PLAN: 1. Adult failure to thrive. Plan is to discharge to [facility]. Hopefully, certification will be obtained today. 2. Calcaneal osteomyelitis, on antibiotics. 3. Type 2 diabetes mellitus. Blood sugars are controlled, 135 this morning. 4. End-stage renal failure, on dialysis, stable. MELISSA CORTES MD CM:PNTRANS [phone] MELISSA CORTES MD 05/20/18 1126 interface
--- NOTE | ~2018-05-12 | WRIGHTHP ---
[place], [place] PATIENT HISTORY AND PHYSICAL EXAM NAME: [facility]IKEYAN MIDDLETON [facility] [id number] UNIT #: [id number] ROOM: 426 DOCTOR: ERIKA MOSES DPM BIRTHDATE: [birth year] DOS: 05/14/2018 INDICATION NOTE: The patient was seen for followup regarding the right foot. I discussed with her in the preop holding area, the pros, cons, risks, benefits, overcorrection, undercorrection, recurrence, numbness, infection, worsening of I, limb loss, DVT, PE, understand anything can happen, nothing should happen. I gave her options of amputation of her lower leg, amputation of her foot or reconstruction and salvage techniques, she chose salvage. I discussed with her in great detail. I indicated to her the salvage is a long process, it could be months, even sometimes longer or could be shorter based on compliance and based on outcome of how each stage of surgery goes. She understands to be staged surgeries. With this in mind, she suffered surgery today for bone debridement of her right calcaneus. She will need long-term IV antibiotics, reduction of the deformity of equinus contracture in sagittal plane and stability, the application of PriMatrix graft and Achilles tendon lengthening and cleaning and washout of this hindfoot area. With this in mind, she agreed to consent. She agreed to the site marking, she agreed to the perioperative management as well as a limb salvage approach. This is her desire. I gave her options and this is what she has chosen. With his mind, I did a site marychuy and she agreed. She signed the consent for the proposed procedures, after discussed with me in great details. ERIKA MOSES DPM CM:HISPHYS:PATIENT HISTORY AND PHYSICAL EXAMINATION 1516 09 ERIKA MOSES DPM 05/14/18 171 interface
--- NOTE | ~2018-05-12 | WRIGHTHP ---
[place], [place] PATIENT HISTORY AND PHYSICAL EXAM NAME: [facility]AN MIDDLETON [facility] [id number] UNIT #: [id number] ROOM: 401 DOCTOR: MELISSA CORTES MD BIRTHDATE: [birth year] DOS: 05/13/2018 HISTORY OF PRESENT ILLNESS: The patient is 52 years old. The patient comes in with complaints of shortness of breath. The patient is a frequent visitor to the hospital, was recently admitted with cellulitis of the foot, was transferred to [facility] in [place] where she underwent an angiogram. What the test results of this study are not available right now and whether she underwent an angioplasty is unclear. The patient does not know the details of the test. She was sent back to [facility] and she states that she has been increasingly short of breath than has had a slight cough, so decided to come into the Emergency Room yesterday. She denies having any chest pains, palpitations, does not have any fever or chills, does not have any abdominal pain, nausea, any emesis. PAST MEDICAL HISTORY: Significant for; 1. Recent hospitalization with infection of the right heel. 2. End-stage renal failure, on dialysis. 3. COPD. 4. Benign hypertension. 5. Type 2 diabetes mellitus. 6. Noncompliance with poor insight to medical problems. 7. History of opioid addiction. MEDICATIONS: Proventil HFA 90 two puffs q. 6., latanoprost drops to left eye at bedtime, PhosLo 667 t.i.d. with meals, Coreg 6.25 twice a day, duloxetine 60 daily, Glenda b.i.d., [place] 5 q. 6 p.r.n., lorazepam 0.5 b.i.d. p.r.n., metoclopramide 5 q.i.d., Lyrica 100 b.i.d., insulin Levemir 20 units subQ twice a day. SOCIAL HISTORY: Nonsmoker. Does not use any alcohol. She does have a history of street drug usage. PHYSICAL EXAMINATION: GENERAL: She is awake and alert and oriented, does not appear to be in any distress this morning, has a slight nonproductive dry cough. VITAL SIGNS: Graphic trend shows a pressure of 132/70, pulse of 76, respirations 18, afebrile. LUNGS: Diminished breath sounds. No wheezes, rales or rhonchi heard. HEART: Regular. ABDOMEN: Obese, but soft, nontender. EXTREMITIES: Right foot is completely covered and left foot does not show any evidence of swelling. ASSESSMENT AND PLAN: The patient who presents with: 1. Congestive heart failure. Check echocardiogram. The patient may require an extra dose of dialysis. She had another one yesterday. We will wait for Dr. Torrez's opinion. 2. Poorly healing ulcer of the right heel followed by wound clinic, continue wound care. 3. Type 2 diabetes mellitus. Blood sugars to be checked q.i.d. Coverage scale will be ordered. [place], [place] PATIENT HISTORY AND PHYSICAL EXAM NAME: KAR[facility]IKEYAN MIDDLETON [facility] [id number] UNIT #: [id number] ROOM: [facility] DOCTOR: MELISSA CORTES MD BIRTHDATE: [birth year] 4. Benign hypertension, controlled. 5. The patient is anuric, so we will not treat her with any more diuretics, but also tried to get records from [place] to see whether any interventions were performed. MELISSA CORTES MD CM:HISPHYS:PATIENT HISTORY AND PHYSICAL EXAMINATION 6 MELISSA CORTES MD 05/13/18 0839 interface
--- NOTE | ~2018-05-12 | WRIGHTHP ---
[place], [place] PATIENT HISTORY AND PHYSICAL EXAM NAME: [facility] MID[id number] UNIT #: [id number] ROOM: 426 DOCTOR: ERIKA MOSES DPM BIRTHDATE: [birth year] DOS: 05/14/2018 LOWER EXTREMITY PHYSICAL EXAM: VASCULAR: She has been treated by Dr. Still. Dr. Still's note indicates she does not believe she has any blockage or any significant pathology from a vascular standpoint of her right lower extremity. She does believe her issues are relative to her diabetes and probably small vessel disease and the neurotrophic ulcer on the right lower extremity. She does have weakly palpable pulses on her DP and PT. Digits are warm, mobile with good cap fill time. They look relatively healthy other than the gangrenous area of her wound of the right calcaneus. NEUROLOGICAL: She has complete loss of protective sensation of right lower extremity. She has lack of sensation of right lower extremity. DERMATOLOGIC: She has a large dry gangrenous full thickness tissue in the inferior and posterior aspect of her calcaneus, suggestive of underlying osteomyelitis. MRI suggests there is osteomyelitis as well around the posterior inferior calcaneal area of her right foot. The wound on the right, although gangrenous tissue, measures 6 cm x 5 cm full thickness. There is no evidence of purulent drainage. There is a foul odor. There is no undermining tunneling that is visible or palpable at this point in time preoperatively. MUSCULOSKELETAL: Unstable right ankle. ORTHOPEDIC: There is exposed FiberWire. There is an anchor device consistent with osteomyelitis and instability of her right hindfoot and ankle. ERIKA MOSES DPM CM:HISPHYS:PATIENT HISTORY AND PHYSICAL EXAMINATION 1516 1711 ERIKA MOSES DPM 06/04/18 1456 interface
--- NOTE | ~2018-05-12 | PR ---
[place], [place] PROGRESS NOTE NAME: KARTHIKEYAN MIDDLETON UNIT #: [id number] ROOM: 426 DOCTOR: HANS MCGUIREJULY BIRTHDATE: [birth year] DOS: 05/18/2018 SUBJECTIVE: The patient is a 52-year-old female being followed for a right heel infected decubitus with osteomyelitis. Cultures have grown ESBL Escherichia coli and Proteus. She is currently on vancomycin and Merrem due to a history of MRSA. She is alert, in no acute distress. Has occasional nausea. States her appetite is breath doing fairly well. Complains of pain in the right foot as well as neuropathic pain of her extremities. No diarrhea. No rash or itch. She has been afebrile. LABORATORY DATA: No new labs today. PHYSICAL EXAMINATION: VITAL SIGNS: Temperature 98.6, pulse 61, respirations 18, BP 89/52. GENERAL: Alert and oriented 52-year-old obese female, in no acute distress. HEAD, EYES, EARS, NOSE AND THROAT: Normocephalic, no thrush. NECK: Supple. LUNGS: Few crackles in the left base. Respirations even and unlabored. HEART: Regular rhythm. No murmur appreciated. Right chest Tesio dressed. ABDOMEN: Soft, nontender, positive bowel sounds. EXTREMITIES: +2 edema bilateral lower extremities, right lower extremity with an external fixator and a wound VAC in place. She is wrapped in dressing up to her knee. SKIN: Warm, pale, dry, free of rashes. ASSESSMENT: Right calcaneus osteomyelitis. PLAN: She is to continue vancomycin and Merrem until minimal June 25. She is to be discharged in the next few days and will need to follow up as an outpatient with Dr. Dickerson. I agree with the assessment and plan done by the nurse practitioner, Lizzeth Maxwell. I reviewed the labs and imaging and made the necessary changes in the note. LIZZETH MAXWELL CNP [place], [place] PROGRESS NOTE NAME: KARTHIKEYAN MIDDLETON UNIT #: [id number] ROOM: 426 DOCTOR: HANS MCGUIREJULY BIRTHDATE: [birth year] Alicia Dickerson MD CM:MIRIAM 18 [id number] JULY HANS MCGUIRE 06/05/18 1058 interface
--- NOTE | ~2018-05-12 | DS ---
[place], [place] DISCHARGE SUMMARY NAME: KARTHIKEYAN MIDDLETON [facility] #: [id number] UNIT #: [id number] ROOM: 426 DOCTOR: MELISSA CORTES MD BIRTHDATE: [birth year] DOS: 05/17/2018 Possible discharge on 05/17 to [facility]. The patient is 52 years old. She is very well known to us, comes in with complaints of shortness of breath. She was seen in the Emergency Room, thought to have mild CHF as she was admitted. After admission, her CT of the chest was done, which did not show any evidence of CHF, pneumonia. She did undergo ultrafiltration and renal consultation was obtained for continued dialysis. Her right heel appeared to be necrotic with recent testing revealing that the patient has osteomyelitis of the calcaneum. Infectious Disease and Podiatry was consulted. The patient was taken for surgery. Calcanectomy was performed and wound debridement cultures as well as wound VAC was placed and an external fixator was also placed. The patient's blood sugars are fairly under control. White cell count is slightly elevated at 15,000 with elevated ESR and CRP from the underlying osteomyelitis. The patient requires continued IV antibiotics for 6 weeks. The patient is going to LTAC facility for that. DISCHARGE MEDICATIONS: Will be meropenem 500 mg IV daily; vancomycin 750 IV, Saturday, Saturday and Saturday; calcium acetate 667 t.i.d. with meals; Xalatan eye drops at bedtime; Lyrica 100 b.i.d.; insulin Levemir 20 units twice a day; carvedilol 6.25 twice a day; duloxetine 60 daily; metoclopramide 5 q.i.d.; [place] 5 q. 6 p.r.n.; lorazepam 0.5 b.i.d., Glenda 60 b.i.d. p.r.n.; folic acid 0.8 mg daily; DuoNeb q. 4, oxygen titrate for pulse ox more than 92 and guaifenesin 10 mL q. 6 hours p.r.n. for cough. DIAGNOSES: Will be: 1. Calcaneal osteomyelitis, status post calcanectomy external fixator. 2. Diabetes mellitus type 2, insulin-dependent, poorly controlled. 3. Chronic pain syndrome. 4. Severe peripheral neuropathy. 5. End-stage renal failure, on dialysis. 6. Benign hypertension. 7. Noncompliance with poor insight to medical problems. 8. History of opioid abuse. [place], [place] DISCHARGE SUMMARY NAME: KARTHIKEYAN MIDDLETON UNIT #: [id number] ROOM: 42 DOCTOR: MELISSA CORTES MD BIRTHDATE: [birth year] MELISSA CORTES MD CM:DISCHKRISTY [id number] MELISSA CORTES MD 05/17/18 1840 interface
--- NOTE | ~2018-05-12 | EKG ---
[place], [place] ELECTROCARDIOGRAM REPORT NAME: KARTHIKEYAN MIDDLETON UNIT #: [id number] ROOM: 426 DOCTOR: MELYSSA DRAFT REPORT BIRTHDATE: [birth year] [facility] Test Date: 2018-05-13 Test Time: 00:08:26 Pat Name: KARTHIKEYAN MIDDLETON Department: ED Room: 426 Gender: F Heating Unit Mechanic: Odilia King : 1965 Requested By: SARA FRANCO Order Number: [id number] Reading MD: Govind Andrade MD Measurements Intervals [place] Rate: 72 P: 5 WI: 169 QRS: 16 QRSD: 96 T: 20 QT: 375 QTc: 411 Interpretive Statements Sinus rhythm Consider anterior infarct Compared to ECG 04/29/2018 17:42:03 Myocardial infarct finding now present Electronically Signed On 05-14-2018 9:06:28 PST by Govind Andrade MD CM:EKGRPT:ELECTROCARDIOGRAM REPORT [id number] SARA MCMAHON DRAFT REPORT SARA FRANCO DO
--- NOTE | ~2018-05-12 | PR ---
[place], [place] PROGRESS NOTE NAME[id number] UNIT #: [id number] ROOM: 426 DOCTOR: MELISSA CORTES MD BIRTHDATE: [birth year] DOS: SUBJECTIVE: The patient is in dialysis today. She is not feeling too bad, does not have any new complaints. OBJECTIVE: VITAL SIGNS: Pressure is 107/79, pulse of 70, respirations 20, temperature 99.3. LUNGS: Diminished breath sounds. HEART: Regular. ABDOMEN: Obese. EXTREMITIES: Without any edema on the left. Right foot with wound with eschar, which is most likely going to be debrided today. LABORATORY DATA: ESR and CRP elevated at 15 and 95, respectively. Review the records from [facility], which shows a fairly decent circulation in the lower legs with good runoff. ASSESSMENT AND PLAN: 1. The patient who came in with shortness of breath. CT of the chest did not show pneumonia or congestive heart failure, did not require an extra dialysis or any antibiotics for pneumonia. Wall thickening of distal esophagus was noted, which will be evaluated at a later date. 2. End-stage renal failure, on dialysis. 3. Poorly healing wound of the right heel with osteomyelitis of the calcaneum. The patient is going to undergo surgery today and will require 6 weeks of antibiotics as an outpatient. She recently grew methicillin-resistant Staphylococcal aureus and expected-spectrum beta-lactamase Proteus from the foot ulcer site at [facility]. She is on meropenem and vancomycin to cover those. MELISSA CORTES MD CM:PNTRANS 0833 0238 MELISSA CORTES MD 05/15/18 0239 interface
--- NOTE | ~2018-05-12 | PR ---
[place], [place] PROGRESS NOTE NAME: KARTHIKEYAN MIDDLETON UNIT #: [id number] ROOM: 426 DOCTOR: MELISSA CORTES MD BIRTHDATE: [birth year] DOS: SUBJECTIVE: The patient is not having any complaints today. OBJECTIVE: VITAL SIGNS: Graphic trend shows a pressure of 132/70, pulse of 61, respirations 16, temperature 97.8. LUNGS: Clear. HEART: Regular. ABDOMEN: Obese, soft, nontender. EXTREMITIES: Heavily bandaged right leg with a wound VAC. ASSESSMENT AND PLAN: 1. Calcaneal osteomyelitis, status post surgery with wound VAC and external fixator, on IV antibiotics. 2. Extended-spectrum beta-lactamase Escherichia coli, Proteus mirabilis and MRSA of the wound, on antibiotics IV. 3. Adult failure to thrive, awaiting approval from insurance as regards to placement to [facility], so hopefully we can arrange for discharge on Saturday. Tomorrow she will be getting her dialysis, so it will not be possible tomorrow. 4. End-stage renal failure, on dialysis. 5. Type 2 diabetes mellitus. Blood sugar 185 this morning. The last few blood sugars have been well controlled. MELISSA CORTES MD CM:PNTRANS 1207 [id number] MELISSA CORTES MD 05/19/18 0904 interface
--- NOTE | ~2018-05-12 | CON ---
[place], [place] REPORT OF CONSULTATION NAME: KARTHIKEYAN MIDDLETON UNIT #: [id number] ROOM: 426 DOCTOR: ERIKA MOSES DPM BIRTHDATE: [birth year] DATE: 05/14/18 ADDENDUM TO RESIDENT CONSULT: I reviewed with the resident and I am in agreement. ERIKA MOSES DPM CM:CONSTR:REPORT OF CONSULTATION 1100 08/07/18 0559 KRYSTYNA CAMPBELL MIS.LLR
--- NOTE | ~2018-05-12 | PR ---
[place], [place] PROGRESS NOTE NAME: KARTHIKEYAN MIDDLETON UNIT #: [id number] ROOM: 426 DOCTOR: DORY NINO DO BIRTHDATE: [birth year] DOS: 05/15/2018 SUBJECTIVE: The patient was seen on dialysis again today. She is undergoing an isolated ultrafiltration treatment today due to her marked volume overload and so far tolerating it well. She states her breathing feels better today. Denies any chest pain, palpitations. Notes good appetite without any nausea or vomiting. She did undergo a calcaneus debridement yesterday for osteomyelitis along with debridement of necrotic tissue and lengthening of her Achilles tendon. A wound VAC is now in place. Her only complaint at present is that of right foot pain. I should also note that her ankle and hindfoot was found to be unstable and apparently underwent a reduction of this instability. She now has an external fixator in place. PHYSICAL EXAMINATION: VITAL SIGNS: Blood pressure is 122/60, respiration 18, heart rate 68, temperature is 98.5 degrees Fahrenheit. GENERAL: Obese female, seen on dialysis. Currently, in no apparent distress. HEAD AND NECK: There is no JVD appreciated. LUNGS: Exhibit bilateral expiratory wheezing, slightly diminished at the bases. HEART: Regular. No S3 or rub. ABDOMEN: Soft. EXTREMITIES: External fixator is noted in place in the right lower extremity. Wound VAC noted to be in place in the right lower extremity. She has +1 flank edema along with +2 pretibial and pedal edema noted. LABORATORY DATA: From today are pending. PLAN: 1. End-stage renal disease. Electrolytes are pending. Volume status remains increased. She is tolerating this well. 2. Hypertension. Blood pressure is under satisfactory control. 3. Diabetic foot ulcer with calcaneus osteomyelitis. She is status post debridement on 05/14/2018 and is on antibiotic therapy. Cultures are pending. RECOMMENDATIONS: No change in current renal replacement therapy. We will plan on routine hemodialysis tomorrow. [place], [place] PROGRESS NOTE NAME: KARTHIKEYAN MIDDLETON UNIT #: [id number] ROOM: 426 DOCTOR: DORY NINO DO BIRTHDATE: [birth year] DORY NINO DO CM:PNLISETH [id number] DORY NINO DO 05/16/18 0447 interface
[~2018-05-12 23:54] MED LIST changes: +VELTASSA8.4 GM PO
[2018-05-12 23:56] VITALS: BP 132/53
[2018-05-13] VITALS (9 sets, daily range): BP systolic 112–145; BP diastolic 44–92
[2018-05-13 00:33] LABS: HEMATOCRIT 31.1 % (37.0-47.0); HEMOGLOBIN 9.1 g/dl (12.0-16.0); MEAN CELL VOLUME 94.2 fl (81.0-99.0); MEAN CORPUSCULAR HGB 27.6 pg (27.0-31.0); MEAN CORPUSCULAR HGB CONC 29.3 g/dl (33.0-37.0); MEAN PLATELET VOLUME 10.8 fl (9.6-12.3); PLATELET COUNT AUTOMATED 261 10*3/uL (130-400); RED CELL DISTRI WIDTH 18.5 % (0-14.5); WHITE BLOOD COUNT 16.8 10*3/uL (4.8-10.8)
[2018-05-13 00:51] LABS: ALBUMIN 2.6 gm/dl (3.1-4.5); CREATININE 4.47 mg/dL (0.55-1.02); POTASSIUM 4.9 mmol/L (3.5-5.1); TOTAL PROTEIN 8.2 gm/dL (6.4-8.2)
[2018-05-13 00:52] LABS: MICROCYTOSIS SLIGHT; PLATELET SUFFICIENCY NORMAL (NORMAL); TOTAL CELLS COUNTED 100 #CELLS
[2018-05-13 00:54] LABS: TROPONIN I 0.027 ng/ml (<0.045)
[2018-05-13] MEDS ORDERED: LORAZEPAM0.5 MG PO (04:18)
[2018-05-13] MEDS ORDERED: AZITHROMYCIN500 M2 PO (04:20)
[2018-05-13] MEDS ORDERED: DOXYCYCLINE HY100 M3 PO (04:21)
[2018-05-13] MEDS ORDERED: METOCLOPRAMIDE H5 M2 PO (04:22)
[2018-05-13] MEDS ORDERED: LATANOPROST2.5 ML OP (04:23)
[2018-05-13] MEDS ORDERED: GLUTOSE 1537.5 GM PO (04:42)
[2018-05-13] MEDS ORDERED: ALLEGRA ALLERGY60 M2 PO (04:44)
[2018-05-13] MEDS ORDERED: NEPHRO-VITE TA0.8 MG PO (04:45)
[2018-05-13] MEDS ORDERED: ROBITUSSIN5 ML PO (04:46)
[2018-05-13] MEDS ORDERED: SANTYL30 GM T (04:47)
[2018-05-14] VITALS (8 sets, daily range): BP systolic 100–133; BP diastolic 43–86
[2018-05-15 08:00] VITALS: BP 124/64; BP 140/80
[2018-05-15 11:29] LABS: BASO % 0.3 % (0.0-1.0); EOS # 0.2 10*3/uL (0.0-0.4); EOS % 1.2 % (1.0-4.0); HEMATOCRIT 26.7 % (37.0-47.0); HEMOGLOBIN 7.6 g/dl (12.0-16.0); LYMPH # 0.6 10*3/uL (1.3-4.4); LYMPH % 4.1 % (27.0-41.0); MEAN CELL VOLUME 95.4 fl (81.0-99.0); MEAN CORPUSCULAR HGB 27.1 pg (27.0-31.0); MEAN CORPUSCULAR HGB CONC 28.5 g/dl (33.0-37.0); MEAN PLATELET VOLUME 10.3 fl (9.6-12.3); MONO # 1.4 10*3/uL (0.1-1.0); MONO % 9.1 % (3.0-9.0); NEUT # 12.5 10*3/uL (2.3-7.9); NEUT % 84.6 % (47.0-73.0); PLATELET COUNT AUTOMATED 238 10*3/uL (130-400); RED CELL DISTRI WIDTH 19.1 % (0-14.5); WHITE BLOOD COUNT 14.8 10*3/uL (4.8-10.8)
[2018-05-15 11:42] LABS: CREATININE 3.73 mg/dL (0.55-1.02)
[2018-05-15 13:00] VITALS: BP 137/64
[2018-05-15 16:00] VITALS: BP 104/54
[2018-05-15 20:00] VITALS: BP 110/68
[2018-05-16] VITALS: BP 119/48
[2018-05-16 09:34] LABS: HEMATOCRIT 29.1 % (37.0-47.0); HEMOGLOBIN 8.4 g/dl (12.0-16.0); MEAN CELL VOLUME 95.4 fl (81.0-99.0); MEAN CORPUSCULAR HGB 27.5 pg (27.0-31.0); MEAN CORPUSCULAR HGB CONC 28.9 g/dl (33.0-37.0); MEAN PLATELET VOLUME 10.2 fl (9.6-12.3); NUCLEATED RED BLOOD CELL 0.2 % (0.0-0.0); PLATELET COUNT AUTOMATED 242 10*3/uL (130-400); RED BLOOD COUNT 3.05 10*6/uL (4.10-5.10); RED CELL DISTRI WIDTH 19.5 % (0-14.5)
[2018-05-16 09:47] LABS: ALBUMIN 2.4 gm/dl (3.1-4.5); CREATININE 4.69 mg/dL (0.55-1.02); POTASSIUM 4.7 mmol/L (3.5-5.1)
[2018-05-16 09:48] LABS: PHOSPHOROUS 4.7 mg/dL (2.5-4.9)
[2018-05-16 10:03] LABS: PLATELET SUFFICIENCY NORMAL (NORMAL); POLYCHROMASIA SLIGHT; TOTAL CELLS COUNTED 100 #CELLS
[2018-05-16 14:07] LABS: ACID FAST SPEC PROCESSING Tissue Grinding (.)
[2018-05-16 14:07] LABS: ACID FAST SPEC PROCESSING Tissue Grinding (.)
[2018-05-16 14:07] LABS: ACID FAST SPEC PROCESSING Tissue Grinding (.)
[2018-05-16 16:00] VITALS: BP 132/89
[2018-05-16 20:00] VITALS: BP 130/76
[2018-05-17] VITALS: BP 114/56
[2018-05-17 12:00] VITALS: BP 141/61
[2018-05-17 16:00] VITALS: BP 129/58
[2018-05-17 20:00] VITALS: BP 123/60
[2018-05-18] VITALS: BP 129/60
[2018-05-18 08:00] VITALS: BP 132/70
[2018-05-18 12:00] VITALS: BP 110/42
[2018-05-18 16:00] VITALS: BP 89/52
[2018-05-18 20:00] VITALS: BP 116/59
[2018-05-19] VITALS: BP 99/50
[2018-05-19 05:53] LABS: CREATININE 6.13 mg/dL (0.55-1.02); POTASSIUM 5.4 mmol/L (3.5-5.1)
[2018-05-19 06:17] LABS: VANCOMYCIN TROUGH 24.4 ug/mL (10-20)
[2018-05-19 16:00] VITALS: BP 124/58
[2018-05-19 20:00] VITALS: BP 128/53
[2018-05-20] VITALS: BP 125/44
[2018-05-20 08:00] VITALS: BP 100/44
[2018-05-20 09:20] VITALS: BP 112/72
[2018-05-20 11:11] LABS: HEMOGLOBIN 7.5 g/dl (12.0-16.0); MEAN CELL VOLUME 95.2 fl (81.0-99.0); MEAN CORPUSCULAR HGB 27.5 pg (27.0-31.0); MEAN CORPUSCULAR HGB CONC 28.8 g/dl (33.0-37.0); MEAN PLATELET VOLUME 10.1 fl (9.6-12.3); NUCLEATED RED BLOOD CELL 0.2 10*3/uL (0.0-0.0); NUCLEATED RED BLOOD CELL 1.8 % (0.0-0.0); PLATELET COUNT AUTOMATED 275 10*3/uL (130-400); RED BLOOD COUNT 2.73 10*6/uL (4.10-5.10); RED CELL DISTRI WIDTH 20.2 % (0-14.5)
[2018-05-20 11:31] LABS: BASOPHILS 2 % (0-1); PLATELET SUFFICIENCY NORMAL (NORMAL); POLYCHROMASIA SLIGHT; ROULEAUX MODERATE; TOTAL CELLS COUNTED 100 #CELLS
[2018-05-20 12:00] VITALS: BP 98/44
[2018-05-20 16:00] VITALS: BP 128/62
[2018-05-20 20:00] VITALS: BP 135/77
[2018-05-21] VITALS: BP 147/61
[2018-05-21 05:52] LABS: CREATININE 5.38 mg/dL (0.55-1.02)
[2018-05-21 05:54] LABS: VANCOMYCIN TROUGH 15.8 ug/mL (10-20)
[2018-05-21 08:00] VITALS: BP 109/55
[2018-05-21 08:25] VITALS: BP 102/68
[2018-05-21 09:14] LABS: BASO # 0.1 10*3/uL (0.0-0.1); BASO % 0.5 % (0.0-1.0); EOS # 0.3 10*3/uL (0.0-0.4); EOS % 2.5 % (1.0-4.0); HEMATOCRIT 26.2 % (37.0-47.0); HEMOGLOBIN 7.4 g/dl (12.0-16.0); LYMPH % 9.6 % (27.0-41.0); MEAN CORPUSCULAR HGB 27.1 pg (27.0-31.0); MEAN CORPUSCULAR HGB CONC 28.2 g/dl (33.0-37.0); MEAN PLATELET VOLUME 10.3 fl (9.6-12.3); MONO # 1.3 10*3/uL (0.1-1.0); MONO % 12.5 % (3.0-9.0); NEUT # 7.7 10*3/uL (2.3-7.9); NEUT % 72.9 % (47.0-73.0); NUCLEATED RED BLOOD CELL 0.1 10*3/uL (0.0-0.0); PLATELET COUNT AUTOMATED 292 10*3/uL (130-400); RED BLOOD COUNT 2.73 10*6/uL (4.10-5.10); RED CELL DISTRI WIDTH 20.3 % (0-14.5); WHITE BLOOD COUNT 10.5 10*3/uL (4.8-10.8)
[2018-05-21 09:23] LABS: ALBUMIN 2.5 gm/dl (3.1-4.5); CREATININE 5.47 mg/dL (0.55-1.02); PHOSPHOROUS 6.2 mg/dL (2.5-4.9); POTASSIUM 5.3 mmol/L (3.5-5.1)
[2018-06-26 12:07] LABS: ACID FAST CULTURE Negative (.)
[2018-06-26 12:07] LABS: ACID FAST CULTURE Negative (.)
[2018-06-26 12:07] LABS: ACID FAST CULTURE Negative (.)
[2018-07-28] MEDS ORDERED: NORVASC5 MG PO (15:39)
[2018-07-28] MEDS ORDERED: HEPARIN 5,5000 UNIT/ SQ (15:40)
[2018-07-28] MEDS ORDERED: LANTHANUM CARB500 MG PO (15:41)
[2018-07-28] MEDS ORDERED: IRON325 M1 PO (15:42)
[2018-08-05] MEDS ORDERED: XARELTO10 MG PO (19:00)
[2018-08-05] MEDS ORDERED: VANCOMYCIN HCL N1 GM IV (19:03)
[2018-08-05] MEDS ORDERED: HYDROCODONE-AC1 EAC1 PO (19:13)
[2018-08-05] MEDS ORDERED: LORAZEPAM0.5 MG PO (19:13)
[2018-10-08] MEDS ORDERED: DOXYCYCLINE100 M3 PO (12:47)
[2018-10-08] MEDS ORDERED: TRAMADOL HCL50 MG PO (12:48)
[2018-10-21] MEDS ORDERED: LYRICA100 M1 PO (03:51)
[2018-10-21] MEDS ORDERED: MIRALAX17 GM PO (03:54)
[2018-10-21] MEDS ORDERED: NYSTATIN CREAM15 GM T (03:56)
[2018-10-21] MEDS ORDERED: CALCIUM ACETAT667 MG PO ×2 (03:58→04:03)
[2018-10-21] MEDS ORDERED: TYLENOL325 M1 PO (04:01)
[2018-10-21] MEDS ORDERED: VELTASSA8.4 GM PO (04:01)
[2018-10-21] MEDS ORDERED: ZOFRAN8 M1 PO (04:04)
[2018-11-13] MEDS ORDERED: PULMICORT RESP0.5 MG NEB (10:25)
[2018-11-13] MEDS ORDERED: CUBICIN500 MG IV (10:30)
[2018-11-13] MEDS ORDERED: NORCO 5-325 TA1 EACH PO (10:33)
[2018-11-13] MEDS ORDERED: HYDROCODONE-AC1 EAC1 PO (10:33)
[2018-11-13] MEDS ORDERED: LEVAQUIN500 M2 PO (10:55)
== END 2018-05-21 10:45 | DRG 623 ==
LOC: ED 23:54 → 4E 05-13 01:32 → EDHOLD 05-13 01:32 → 4E 05-13 01:57
PROVIDERS: Internal Medicine Nephrology; Podiatrist; Podiatrist Foot & Ankle Surgery; Student in an Organized Health Care Education/Training Program; ADMIT Internal Medicine
PROC: 0QBL0ZZ Excision of Right Tarsal, Open Approach (ICD-10-PCS; principal; 2018-05-14)
PROC: 0QSL35Z Reposition Right Tarsal with External Fixation Device, Percutaneous Approach (ICD-10-PCS; principal; 2018-05-14)
PROC: 0HXMXZZ Transfer Right Foot Skin, External Approach (ICD-10-PCS; principal; 2018-05-14)
PROC: 5A1D70Z Performance of Urinary Filtration, Intermittent, Less than 6 Hours Per Day (ICD-10-PCS; principal; 2018-05-14)
PROC: 5A1D70Z Performance of Urinary Filtration, Intermittent, Less than 6 Hours Per Day (ICD-10-PCS; 2018-05-15)
PROC: 5A1D70Z Performance of Urinary Filtration, Intermittent, Less than 6 Hours Per Day (ICD-10-PCS; 2018-05-21)
DX: E11.69 Type 2 diabetes mellitus with other specified complication (principal); M86.8X7 Other osteomyelitis, ankle and foot; I13.2 Hypertensive heart and chronic kidney disease with heart failure and with stage 5 chronic kidney disease, or end stage renal disease; E44.0 Moderate protein-calorie malnutrition; N18.6 End stage renal disease; I50.9 Heart failure, unspecified; E66.01 Morbid (severe) obesity due to excess calories; E87.5 Hyperkalemia; F41.9 Anxiety disorder, unspecified; D64.9 Anemia, unspecified; G89.4 Chronic pain syndrome; J44.9 Chronic obstructive pulmonary disease, unspecified; B96.4 Proteus (mirabilis) (morganii) as the cause of diseases classified elsewhere; B95.62 Methicillin resistant Staphylococcus aureus infection as the cause of diseases classified elsewhere; L89.619 Pressure ulcer of right heel, unspecified stage; E11.621 Type 2 diabetes mellitus with foot ulcer; F32.9 Major depressive disorder, single episode, unspecified; E78.5 Hyperlipidemia, unspecified; E11.42 Type 2 diabetes mellitus with diabetic polyneuropathy; B96.20 Unspecified Escherichia coli [E. coli] as the cause of diseases classified elsewhere; R62.7 Adult failure to thrive; S91.302A Unspecified open wound, left foot, initial encounter; X58.XXXA Exposure to other specified factors, initial encounter; Y93.89 Activity, other specified; Y92.89 Other specified places as the place of occurrence of the external cause; Y99.8 Other external cause status; Z68.35 Body mass index [BMI] 35.0-35.9, adult; Z99.81 Dependence on supplemental oxygen; Z88.1 Allergy status to other antibiotic agents; Z91.013 Allergy to seafood; Z91.048 Other nonmedicinal substance allergy status; Z89.439 Acquired absence of unspecified foot; Z87.01 Personal history of pneumonia (recurrent); Z87.440 Personal history of urinary (tract) infections; Z90.49 Acquired absence of other specified parts of digestive tract; Z98.51 Tubal ligation status; Z80.0 Family history of malignant neoplasm of digestive organs; Z83.3 Family history of diabetes mellitus; Z82.49 Family history of ischemic heart disease and other diseases of the circulatory system; Z79.899 Other long term (current) drug therapy

== ENCOUNTER → 2018-06-04 | Day surgery (SDC) | payer MEDICARE ==
[~2018-06-04] VITALS: Ht 162.5 cm; Wt 95.7 kg
[~2018-06-04] MED LIST changes: +ALLEGRA ALLERGY60 M2 PO; +AZITHROMYCIN500 M2 PO; +CUBICIN500 MG IV; +DOXYCYCLINE HY100 M3 PO; +GENTACIDIN5 ML OT; +GLUCAGON EMERGEN1 M1 IJ; +GLUTOSE 1537.5 GM PO; +HYDROCODONE-AC1 EAC1 PO; +IRON325 M1 PO; +LANTHANUM CARB500 MG PO; +LEVAQUIN500 M2 PO; +LORAZEPAM0.5 MG PO; +MEROPENEM-500 MG/50 IV; +METOCLOPRAMIDE H5 M2 PO; +MIRALAX17 GM PO; +NORVASC5 MG PO; +NYSTATIN CREAM15 GM T; +PULMICORT RESP0.5 MG NEB; +ROBITUSSIN5 ML PO; +VANCOMYCIN HCL N1 GM IV; +XARELTO10 MG PO
--- NOTE | ~2018-06-04 | WRIGHTHP ---
[place], [place] PATIENT HISTORY AND PHYSICAL EXAM [id number] UN[facility] #: [id number] ROOM: DOCTOR: ERIKA MOSES DPM BIRTHDATE: [birth year] DOS: 06/04/2018 INDICATION NOTE The patient is seen for followup regarding ulceration of her right calcaneus. The patient has an open wound that measures 7.5 cm x 5.0 cm, full thickness bone. There is some darkened tissue in the area of the osseous structures as well as the peripheral area of her right calcaneus. She is set up for surgery today at [facility] on 06/04/2018 for bone debridement, application of Integra graft, possible incision and drainage. She is set for surgery and understood the pros, cons, risks and benefits. She understands she is at high risk for limb loss. With this in mind, she is set for surgery today. ERIKA MOSES DPM CM:HISPHYS:PATIENT HISTORY AND PHYSICAL EXAMINATION 1432 1741 ERIKA MOSES DPM 06/18/18 0944 interface
--- NOTE | ~2018-06-04 | WRIGHTHP ---
[place], [place] PATIENT HISTORY AND PHYSICAL EXAM NAME: [facility] MIDDLETON [id number] UNIT #: [id number] ROOM: DOCTOR: ERIKA MOSES DPM BIRTHDATE: [birth year] DOS: 06/04/2018 LOWER EXTREMITY PHYSICAL EXAM: VASCULAR: She has had noninvasive vascular studies done, demonstrates she has good perfusion in her left lower extremity. NEUROLOGICAL: She has complete loss of protective sensation on both lower extremities secondary to diabetic peripheral neuropathy. DERMATOLOGIC: She has an open wound that measures 7.5 x 5.0 cm. It is full thickness in nature down to the bone. There is some necrotic tissue noted. There is no foul odor, no undermining tunnel however this a chronic contamination odor of the remaining portion of the calcaneus and tissues covering the calcaneus. ORTHOPEDIC EXAM: Consistent with previous osteomyelitis, left calcaneus. ERIKA MOSES DPM CM:HISPHYS:PATIENT HISTORY AND PHYSICAL EXAMINATION 1432 1745 ERIKA MOSES DPM 06/18/18 0756 interface
--- NOTE | ~2018-06-04 | O ---
[place], [place] OPERATIVE NOTE NAME: [facility]KEYAN MIDDLETON [id number] UNIT #: [id number] ROOM: DOCTOR: ERIKA MOSES DPM BIRTHDATE: [birth year] DOS: 06/04/2018 SURGEON: Erika Moses DPM. ASSISTANTS: 1. Dr. Anthony Nicole. 2. Ryan Akhtar. PREOPERATIVE DIAGNOSIS: Osteomyelitis, left calcaneus. Appropriate timeout was performed before we started surgery and everybody in the room concurred. PROCEDURE #1: INCISION AND DRAINAGE, BONE BIOPSY, BONE DEBRIDEMENT OF THE LEFT CALCANEUS: The bone was debrided, full thickness in nature. Bone was sent for aerobic, anaerobic, fungal acid fast as well as Gram stain. Once the bone and all soft tissue were removed, significant amount of irrigation was performed. PROCEDURE #2: APPLICATION OF BILAYER INTEGRA GRAFT: At this point in time, the bilayer Integra graft were applied very closely. The surgical wounds were dressed with Adaptic, 4 x 4s, Isidro in a sterile compression fashion. She tolerated the procedure and anesthesia well and left the OR with vital signs stable and vascular status intact. ERIKA MOSES DPM CM:OPRECORD:OPERATIVE NOTE 1432 1752 ERIKA MOSES DPM 06/18/18 1316 interface
[2018-06-04 13:21] VITALS: BP 144/59
[2018-06-04 14:39] VITALS: BP 130/56
[2018-06-04 14:55] VITALS: BP 134/56
[2018-06-04 15:08] VITALS: BP 121/70
[2018-06-04 15:25] VITALS: BP 126/54
[2018-06-05 17:11] LABS: ACID FAST SPEC PROCESSING Tissue Grinding (.)
[2018-07-16 11:04] LABS: ACID FAST CULTURE Negative (.)
== END | disposition home or self-care (01) ==
LOC: SDC 00:42
PROVIDERS: Podiatrist
DX: M86.172 Other acute osteomyelitis, left ankle and foot (principal); L97.428 Non-pressure chronic ulcer of left heel and midfoot with other specified severity; I10 Essential (primary) hypertension; E11.9 Type 2 diabetes mellitus without complications; J45.909 Unspecified asthma, uncomplicated; F32.9 Major depressive disorder, single episode, unspecified; F41.9 Anxiety disorder, unspecified; Z87.891 Personal history of nicotine dependence; Z98.890 Other specified postprocedural states; Z90.49 Acquired absence of other specified parts of digestive tract; Z79.899 Other long term (current) drug therapy

== ENCOUNTER 2018-08-29 12:34 | Emergency (ER) | payer MEDICARE ==
[~2018-08-29] VITALS: Ht 162.5 cm; Wt 103.0 kg
--- NOTE | ~2018-08-29 | EKG ---
[place], [place] ELECTROCARDIOGRAM REPORT NAME: KARTHIKEYAN MIDDLETON UNIT #: [id number] ROOM: DOCTOR: EPIPHANY DRAFT REPORT BIRTHDATE: [birth year] [facility] Test Date: 2018-08-29 Test Time: 13:19:02 Pat Name: KARTHIKEYAN MIDDLETON Department: Room: Gender: F Whip Operator: Dianelys Posada : 1965 Requested By: CHARLES GONZALEZ Order Number: [id number] Reading MD: Zechariah Magaña MD Measurements Intervals [place] Rate: 69 P: -13 NH: 177 QRS: 62 QRSD: 94 T: 59 QT: 411 QTc: 441 Interpretive Statements Sinus rhythm Low voltage, precordial leads Baseline wander in lead(s) I,III,aVL,V2,V3 Compared to ECG 05/13/2018 00:08:26 Low QRS voltage now present Myocardial infarct finding no longer present Electronically Signed On 08-31-2018 13:11:57 PDT by Zechariah Magaña MD CM:EKGRPT:ELECTROCARDIOGRAM REPORT 1319 1311 [facility] D[facility]FT REPORT CHARLES GONZALEZ MD
[~2018-08-29 12:34] MED LIST changes: -CUBICIN500 MG IV; -GENTACIDIN5 ML OT; -GLUCAGON EMERGEN1 M1 IJ; -LEVAQUIN500 M2 PO; -MEROPENEM-500 MG/50 IV; -MIRALAX17 GM PO; -NYSTATIN CREAM15 GM T; -PULMICORT RESP0.5 MG NEB
[2018-08-29 14:17] LABS: CREATININE 2.62 mg/dL (0.55-1.02)
[2018-08-29 14:31] LABS: POTASSIUM 4.1 mmol/L (3.5-5.1)
[2018-08-29 15:01] VITALS: BP 136/52
[2018-10-08] MEDS ORDERED: DOXYCYCLINE100 M3 PO (12:47)
[2018-10-08] MEDS ORDERED: TRAMADOL HCL50 MG PO (12:48)
[2018-10-21] MEDS ORDERED: LYRICA100 M1 PO (03:51)
[2018-10-21] MEDS ORDERED: MIRALAX17 GM PO (03:54)
[2018-10-21] MEDS ORDERED: NYSTATIN CREAM15 GM T (03:56)
[2018-10-21] MEDS ORDERED: CALCIUM ACETAT667 MG PO ×2 (03:58→04:03)
[2018-10-21] MEDS ORDERED: VELTASSA8.4 GM PO (04:01)
[2018-10-21] MEDS ORDERED: TYLENOL325 M1 PO (04:01)
[2018-10-21] MEDS ORDERED: ZOFRAN8 M1 PO (04:04)
[2018-11-13] MEDS ORDERED: PULMICORT RESP0.5 MG NEB (10:25)
[2018-11-13] MEDS ORDERED: CUBICIN500 MG IV (10:30)
[2018-11-13] MEDS ORDERED: HYDROCODONE-AC1 EAC1 PO (10:33)
[2018-11-13] MEDS ORDERED: NORCO 5-325 TA1 EACH PO (10:33)
[2018-11-13] MEDS ORDERED: LEVAQUIN500 M2 PO (10:55)
== END 2018-08-29 15:30 | disposition home or self-care (01) ==
LOC: ED 12:34
PROVIDERS: Emergency Medicine
DX: E11.22 Type 2 diabetes mellitus with diabetic chronic kidney disease (principal); I13.2 Hypertensive heart and chronic kidney disease with heart failure and with stage 5 chronic kidney disease, or end stage renal disease; I50.9 Heart failure, unspecified; N18.6 End stage renal disease; E87.5 Hyperkalemia; E11.42 Type 2 diabetes mellitus with diabetic polyneuropathy; J44.9 Chronic obstructive pulmonary disease, unspecified; E78.5 Hyperlipidemia, unspecified; E66.01 Morbid (severe) obesity due to excess calories; F17.210 Nicotine dependence, cigarettes, uncomplicated; Z88.1 Allergy status to other antibiotic agents; Z91.041 Radiographic dye allergy status; Z91.013 Allergy to seafood; Z79.899 Other long term (current) drug therapy; Z79.4 Long term (current) use of insulin; Z99.2 Dependence on renal dialysis

== ENCOUNTER → 2018-09-01 | Day surgery (SDC) | payer MEDICARE ==
[~2018-09-01] VITALS: Ht 162.5 cm; Wt 95.7 kg
[~2018-09-01] MED LIST changes: +CUBICIN500 MG IV; +GENTACIDIN5 ML OT; +GLUCAGON EMERGEN1 M1 IJ; +LEVAQUIN500 M2 PO; +MEROPENEM-500 MG/50 IV; +MIRALAX17 GM PO; +NYSTATIN CREAM15 GM T; +PULMICORT RESP0.5 MG NEB
--- NOTE | ~2018-09-01 | O ---
[place], [place] OPERATIVE NOTE NAME: [id number] UNIT #: [id number] ROOM: DOCTOR: JOSUÉ CULPERIKA BIRTHDATE: [birth year] DOS: 09/01/2018 SURGEON: Erika Moses DPM RESEARCH HYDROLOGIST: Anthony Nicole, fellow and Desmond Tracy, PGY-2. PREOPERATIVE DIAGNOSIS: Open wound, right heel measuring 10 x 17 cm and painful multilevel external fixator on the right. POSTOPERATIVE DIAGNOSIS: Open wound, right heel measuring 10 x 17 cm and painful multilevel external fixator on the right. PROCEDURES: 1. Adjustment of multilevel external fixator, full-thickness sharp excisional debridement of the right calcaneus. 2. Split-thickness skin graft from her right thigh to her right heel. 3. Application of wound VAC. The patient was seen in preop holding area. Appropriate site marking was performed. The patient and her family concurred. She was brought to the OR and placed well-padded OR table where anesthesia was achieved. Once the anesthesia was achieved, her right foot and leg were prepped and draped in the usual sterile fashion. At this point in time, adjustment of the multilevel external fixator was performed. The adjustment was made. At this point in time, next the wound was measured to be at 17 x 10 cm. A full-thickness sharp excisional debridement was performed to stimulate bleeding into the right posterior heel. Good capillary bleeding was noted. Tissue was sent for Gram stain, aerobic, anaerobic, fungal and acid fast, although there was no clinical indication of infection at this time. This was done as a precautionary move. HARVESTING SKIN GRAFT: Mineral oil was applied to the thigh. Dermatome was set on sixteenth of one-thousand of an inch, which was harvested and put through 1.5 x 1 mesher and this was applied and applied to her calcaneus and sutured with katiuska. Next, application of VAC was applied showing 75 and continuous dressings consisted of a dry sterile dressing. Application of a wound VAC. A usual customary sterile technique was used for applying of VAC. A dry sterile dressing was applied to the right calcaneous. Impregnated gauze with lubricant was applied to her thigh and OpSite and dry sterile dressing was applied. She tolerated the procedure and anesthesia well, left the OR with vital signs stable and vascular status intact. [place], [place] OPERATIVE NOTE NAME: KARTHIKEYAN MIDDLETON UNIT #: [id number] ROOM: DOCTOR: ERIKA MOSES DPM BIRTHDATE: [birth year] ERIKA MOSES DPM CM:OPRECORD:OPERATIVE NOTE 1251 1332 ERIKA MOSES DPM 09/03/18 1358 interface
--- NOTE | ~2018-09-01 | WRIGHTHP ---
[place], [place] PATIENT HISTORY AND PHYSICAL EXAM NAME: KARTHIKEYAN MIDDLETON [facility] #: [id number] UNIT #: [id number] ROOM: DOCTOR: ERIKA MOSES DPM BIRTHDATE: [birth year] DOS: 09/01/2018 LOWER EXTREMITY PHYSICAL EXAMINATION: VASCULAR: She has intact vascular status. She has had previous testing done demonstrating intact vascularity. NEUROLOGICAL: She has a lack of protective sensation secondary to diabetic peripheral neuropathy. MUSCULOSKELETAL: She has been an external fixator, so she is in a fixed position and stable. ORTHOPEDIC: Exam is consistent with previous history of osteomyelitis that has been treated and she appears to be responding well at this point in time. A multilevel external fixator with a painful multilevel external fixator on the right. DERMATOLOGICAL: She has an open wound that had a tissue transfer performed that measures 17 x 10 cm. There is no cardinal signs of infection, drainage, foul odor, undermining tunneling noted of her right lower extremity. ERIKA MOSES DPM CM:HISPHYS:PATIENT HISTORY AND PHYSICAL EXAMINATION 1251 1330 ERIKA MOSES DPM 09/01/18 1330 interface
--- NOTE | ~2018-09-01 | WRIGHTHP ---
[place], [place] PATIENT HISTORY AND PHYSICAL EXAM NAME: KARTHIKEYAN MIDDLETON [facility] #: [id number] UNIT #: [id number] ROOM: DOCTOR: MAIA AGUILAR MD BIRTHDATE: [birth year] DOS: 08/28/2018 HISTORY OF PRESENT ILLNESS: A 52-year-old female who is going for right foot surgery to be performed by Dr. Rahman. The patient with a past medical history of: 1. Osteomyelitis involving the right foot, status post surgery and external fixators by Dr. Rahman, going for skin graft surgery now. 2. History of COPD. 3. Chronic diastolic type CHF. 4. Adult failure to thrive. 5. Bilateral nuclear cataracts age related. 6. History of alcohol and cocaine dependence. 7. Anemia of chronic kidney disease. 8. Chronic kidney failure and the patient requires hemodialysis. 9. Chronic constipation. 10. Dental caries. 11. Type 2 diabetes mellitus. 12. Dry eye syndrome. 13. Obesity. 14. Right foot drop. 15. Diabetic gastroparesis. 16. Generalized anxiety disorder. 17. Mixed hyperlipidemia. 18. Benign essential hypertension. 19. Hypothyroidism. 20. Major depression, recurrent, moderate. The patient with multiple medical problems and advanced adult failure to thrive, requiring surgeries to her right foot again, this time skin graft. The patient appears stable for surgery. No chest pain. No shortness of breath. No dizziness or fainting episode. No other GI or urinary symptoms. The patient is not taking any anticoagulants. REVIEW OF SYSTEMS: RESPIRATORY: No increasing shortness of breath. GASTROINTESTINAL: No nausea, vomiting, diarrhea, constipation. CARDIOVASCULAR SYSTEM: No chest pain, no palpitations. MEDICATIONS: Senna, Lyrica, MiraLax, metoprolol, latanoprost eye drops, lorazepam, insulin, [place], folic acid, iron, Cymbalta, Coreg, PhosLo, amlodipine, DuoNeb. FAMILY HISTORY: Noncontributory. ALLERGIES: Known allergies to CLARITHROMYCIN. PHYSICAL EXAMINATION: GENERAL: Alert, oriented x 3, obese. Generalized weakness, right foot and external fixators. HEENT AND NECK: Extraocular movements are intact. Sclerae are anicteric. [place], [place] PATIENT HISTORY AND PHYSICAL EXAM NAME: KARTHIKEYAN MIDDLETON [facility] #: [id number] UNIT #: [id number] ROOM: DOCTOR: MAIA AGUILAR MD BIRTHDATE: [birth year] mucosa is moist and clean. No obvious facial weakness. Neck is supple without any lymphadenopathy. No thyromegaly. No JVD. No carotid arterial bruits. LUNGS: Clear to auscultation. No wheezing. No rhonchi. CARDIOVASCULAR SYSTEM: Heart rate is regular in rate and rhythm. S1 and S2 normally audible. No significant murmur or any other abnormal cardiac sounds. ABDOMEN: Soft, nontender. No obvious organomegaly. Bowel sounds are present. No obvious herniation. EXTREMITIES: Without significant cyanosis or edema. Warm to touch. CENTRAL NERVOUS SYSTEM: Alert and oriented x 3. Cranial nerves II-XII are intact. Speech is normal. The patient is able to move all extremities. Normal muscle strength. Deep tendon reflexes are equal on both sides. Plantars were downgoing. IMPRESSION: 1. The patient with advance adult failure to thrive and suboptimal long-term prognosis for her age. Continue present treatment. 2. The patient is going for right foot surgery at [facility] and requires some skin grafts. The patient has no chest pain, no increasing shortness of breath. She is not on any anticoagulants and recently had a complete workup for the last surgery. The patient appears stable to go for her foot surgery. 3. Type 2 diabetes mellitus. Blood sugars being monitored and treated. 4. Benign essential hypertension, treated and controlled ____ amlodipine. 5. Major depression, recurrent, moderate, treated with Cymbalta and controlled. 6. Generalized anxiety, treated with lorazepam as needed. 7. Diabetic peripheral polyneuropathy, treated and controlled with Lyrica. 8. Chronic constipation, treated and controlled with senna. 9. Glaucoma, treated with eye drops. MAIA AGUILAR MD CM:HISPHYS:PATIENT HISTORY AND PHYSICAL EXAMINATION [id number] ERIKA AGUILAR MD 09/08/18 0722 interface
--- NOTE | ~2018-09-01 | WRIGHTHP ---
[place], [place] PATIENT HISTORY AND PHYSICAL EXAM [facility] [id number] UN[facility] #: [id number] ROOM: DOCTOR: ERIKA MOSES DPM BIRTHDATE: [birth year] DOS: 09/01/2018 INDICATION NOTE The patient was seen for limb salvage procedure, staged procedure of her right lower extremity. She is here today for split-thickness skin graft, adjustment of ex-fix on her right lower extremity. She is aware of the pros, cons, risks, benefits, overcorrection, under correction, recurrence of stump infection and worsening of it, blood loss ____. With this in mind, the patient was set up for surgery today on 09/01/2018, understanding the risks and benefits of the surgery. She agreed the site marking and she agreed with the perioperative management and she agreed with the proposed surgery and signed the consent. She understands the risks and benefits and she was set up for surgery today on 09/01/2018. ERIKA MOSES DPM CM:HISPHYS:PATIENT HISTORY AND PHYSICAL EXAMINATION 1251 1326 ERIKA MOSES DPM 09/01/18 1429 interface
[2018-09-01 10:45] VITALS: BP 149/57
[2018-09-01 12:51] VITALS: BP 106/67
[2018-09-01 13:05] VITALS: BP 134/44
[2018-09-01 13:20] VITALS: BP 128/36
[2018-09-02 16:09] LABS: ACID FAST SPEC PROCESSING Tissue Grinding (.)
[2018-10-17 12:05] LABS: ACID FAST CULTURE Negative (.)
== END | disposition home or self-care (01) ==
LOC: SDC 08-29 14:00
PROVIDERS: Podiatrist
DX: S91.301A Unspecified open wound, right foot, initial encounter (principal); X58.XXXA Exposure to other specified factors, initial encounter; Y93.89 Activity, other specified; Y92.89 Other specified places as the place of occurrence of the external cause; Y99.8 Other external cause status; T81.89XA Other complications of procedures, not elsewhere classified, initial encounter; Y83.8 Other surgical procedures as the cause of abnormal reaction of the patient, or of later complication, without mention of misadventure at the time of the procedure; J45.909 Unspecified asthma, uncomplicated; I13.2 Hypertensive heart and chronic kidney disease with heart failure and with stage 5 chronic kidney disease, or end stage renal disease; E10.22 Type 1 diabetes mellitus with diabetic chronic kidney disease; I50.9 Heart failure, unspecified; N18.6 End stage renal disease; E10.40 Type 1 diabetes mellitus with diabetic neuropathy, unspecified; F12.11 Cannabis abuse, in remission; E78.00 Pure hypercholesterolemia, unspecified; F41.9 Anxiety disorder, unspecified; J44.9 Chronic obstructive pulmonary disease, unspecified; K21.9 Gastro-esophageal reflux disease without esophagitis; H54.40 Blindness, one eye, unspecified eye; F32.9 Major depressive disorder, single episode, unspecified; M19.90 Unspecified osteoarthritis, unspecified site; E66.9 Obesity, unspecified; Z68.36 Body mass index [BMI] 36.0-36.9, adult; Z88.1 Allergy status to other antibiotic agents; Z88.3 Allergy status to other anti-infective agents; Z91.013 Allergy to seafood; Z88.8 Allergy status to other drugs, medicaments and biological substances; Z87.891 Personal history of nicotine dependence; Z90.49 Acquired absence of other specified parts of digestive tract; Z87.01 Personal history of pneumonia (recurrent); Z98.890 Other specified postprocedural states; Z97.8 Presence of other specified devices; Z86.14 Personal history of Methicillin resistant Staphylococcus aureus infection; Z79.01 Long term (current) use of anticoagulants; Z79.899 Other long term (current) drug therapy; Z83.3 Family history of diabetes mellitus

== ENCOUNTER 2018-09-27 13:25 | Emergency (ER) | payer MEDICARE ==
[~2018-09-27] VITALS: Ht 162.5 cm; Wt 102.5 kg
[~2018-09-27 13:25] MED LIST changes: -CUBICIN500 MG IV; -GENTACIDIN5 ML OT; -GLUCAGON EMERGEN1 M1 IJ; -LEVAQUIN500 M2 PO; -MEROPENEM-500 MG/50 IV; -MIRALAX17 GM PO; -NYSTATIN CREAM15 GM T; -PULMICORT RESP0.5 MG NEB
[2018-09-27 13:26] VITALS: BP 156/64
[2018-10-08] MEDS ORDERED: DOXYCYCLINE100 M3 PO (12:47)
[2018-10-08] MEDS ORDERED: TRAMADOL HCL50 MG PO (12:48)
[2018-10-21] MEDS ORDERED: LYRICA100 M1 PO (03:51)
[2018-10-21] MEDS ORDERED: MIRALAX17 GM PO (03:54)
[2018-10-21] MEDS ORDERED: NYSTATIN CREAM15 GM T (03:56)
[2018-10-21] MEDS ORDERED: CALCIUM ACETAT667 MG PO ×2 (03:58→04:03)
[2018-10-21] MEDS ORDERED: VELTASSA8.4 GM PO (04:01)
[2018-10-21] MEDS ORDERED: TYLENOL325 M1 PO (04:01)
[2018-10-21] MEDS ORDERED: ZOFRAN8 M1 PO (04:04)
[2018-11-13] MEDS ORDERED: PULMICORT RESP0.5 MG NEB (10:25)
[2018-11-13] MEDS ORDERED: CUBICIN500 MG IV (10:30)
[2018-11-13] MEDS ORDERED: HYDROCODONE-AC1 EAC1 PO (10:33)
[2018-11-13] MEDS ORDERED: NORCO 5-325 TA1 EACH PO (10:33)
[2018-11-13] MEDS ORDERED: LEVAQUIN500 M2 PO (10:55)
== END 2018-09-27 17:04 | disposition home or self-care (01) ==
LOC: ED 13:25
DX: L76.21 Postprocedural hemorrhage of skin and subcutaneous tissue following a dermatologic procedure (principal); J44.9 Chronic obstructive pulmonary disease, unspecified; I13.2 Hypertensive heart and chronic kidney disease with heart failure and with stage 5 chronic kidney disease, or end stage renal disease; E11.22 Type 2 diabetes mellitus with diabetic chronic kidney disease; N18.6 End stage renal disease; E66.01 Morbid (severe) obesity due to excess calories; E78.5 Hyperlipidemia, unspecified; M86.9 Osteomyelitis, unspecified; E11.621 Type 2 diabetes mellitus with foot ulcer; F17.210 Nicotine dependence, cigarettes, uncomplicated; Z79.4 Long term (current) use of insulin; Z88.1 Allergy status to other antibiotic agents; Z91.013 Allergy to seafood; Z79.899 Other long term (current) drug therapy; Z99.2 Dependence on renal dialysis; Y92.89 Other specified places as the place of occurrence of the external cause

== ENCOUNTER → 2018-10-08 | Day surgery (SDC) | payer MEDICARE ==
--- NOTE | 2018-10-01 17:27 | NUR ---
TALKED WITH RADHA AT [facility]. HE IS AWARE OF TIME AND ORDERS NEEDED FOR KARTHIKEYAN. ORDERS FAXED TO [facility]. LABS TO BE DONE AT [facility]. TRANSPORTATION HAS BEEN ARRANGED.
[~2018-10-08] VITALS: Ht 162.5 cm; Wt 95.7 kg
[~2018-10-08] MED LIST changes: +ALBUTEROL0.63 MG/3 INH; +BROVANA15 MCG/2 M INH; +CUBICIN500 MG IV; +GENTACIDIN5 ML OT; +GLUCAGON EMERGEN1 M1 IJ; +HEPARIN SO5000 UNIT4 SC; +HYDROMORPHONE2 MG PO; +HYDROXYZINE HCL25 MG PO; +INSULIN LI100 UNIT/1 SQ; +LEVAQUIN500 M2 PO; +MEROPENEM-500 MG/50 IV; +MIRALAX17 GM PO; +NYSTATIN CREAM15 GM T; +PULMICORT RESP0.5 MG NEB; +Synthroid,Levo50 MCG PO
--- NOTE | ~2018-10-08 | O ---
[place], [place] OPERATIVE NOTE NAME[id number] #: [id number] ROOM: DOCTOR: ERIKA MOSES DPM BIRTHDATE: [birth year] DOS: 10/08/2018 SURGEON: Erika Moses DPM CORPORATE REPRESENTATIVE: Dr. Ivan Levine. PREOPERATIVE DIAGNOSIS: Painful multilevel external fixator, right lower extremity. POSTOPERATIVE DIAGNOSIS: Painful multilevel external fixator, right lower extremity. PROCEDURE: Removal of multilevel right external fixator. DESCRIPTION OF PROCEDURE: The patient was seen in the preoperative holding area. Appropriate site marking was performed. At this time, she was brought into the OR and placed well-padded on the OR table where anesthesia was achieved. Once the anesthesia was achieved, her right foot and leg were prepped and draped in the usual sterile fashion. At this point in time, a multilevel external fixator removed, two half pins from the tibia removed, two half pins from the midfoot removed. Betadine prep, dry sterile dressing applied. Multiple Kerlixes, 4 x 4s, Isidro and at this time, a BK cast was applied to her right lower extremity. She tolerated the procedure and anesthesia well and left the OR with vital signs stable and vascular status intact. ERIKA MOSES DPM CM:OPRECORD:OPERATIVE NOTE 1331 1456 ERIKA MOSES DPM 10/08/18 1456 interface
--- NOTE | ~2018-10-08 | WRIGHTHP ---
[place], [place] PATIENT HISTORY AND PHYSICAL EXAM [id number] UNIT #: [id number] ROOM: DOCTOR: ERIKA MOSES DPM BIRTHDATE: [birth year] DOS: 10/08/2018 INDICATION NOTE The patient has had multiple surgical procedures done for limb salvage of the right lower extremity. She is set up today for removal of hardware of the ex-fix of the right. With this in mind, she is aware of pros, cons, risks, benefits, overcorrection, undercorrection, recurrence, numbness, infection, worsening, , DVT, PE, limb loss as well as anything can happen; nothing should happen. With this in mind, she was set up for surgery today on 10/08/2018 at [facility] for removal of multilevel external fixator of the right. With this in mind, she has agreed to consent to this surgery understanding its pros, cons, risks and benefits of procedure on right lower extremity. ERIKA MOSES DPM CM:HISPHYS:PATIENT HISTORY AND PHYSICAL EXAMINATION 1331 1453 ERIKA MOSES DPM 10/08/18 1453 interface
--- NOTE | ~2018-10-08 | WRIGHTHP ---
[place], [place] PATIENT HISTORY AND PHYSICAL EXAM NAME: KAR[facility]KEYAN MIDDLETON [facility] #: [id number] UNIT #: [id number] ROOM: DOCTOR: ERIKA MOSES DPM BIRTHDATE: [birth year] DOS: 10/08/2018 LOWER EXTREMITY PHYSICAL EXAMINATION: VASCULAR: She has palpable pedal pulses, 2/4 DP and PT bilaterally. Good cap refill time. NEUROLOGIC: She has complete loss of protective sensation with diabetic peripheral neuropathy. DERMATOLOGICAL: She has no open wounds. Her skin graft is well taken. There is an eschar over her right skin. Integra intact. There is no evidence of infection, drainage, foul odor, undermining or tunneling. MUSCULOSKELETAL: The patient has a plantigrade foot. ORTHOPEDIC EXAM: Post osteomyelitis of the right calcaneus and a painful multilevel external fixator. ERIKA MOSES DPM CM:HISPHYS:PATIENT HISTORY AND PHYSICAL EXAMINATION 1331 1454 ERIKA MOSES DPM 10/08/18 1454 interface
[2018-10-08 09:31] VITALS: BP 127/71
[2018-10-08 12:20] VITALS: BP 140/77
[2018-10-08 12:35] VITALS: BP 122/87
[2018-10-08 12:50] VITALS: BP 138/78
== END | disposition home or self-care (01) ==
LOC: SDC 10-02 08:45
DX: T81.89XA Other complications of procedures, not elsewhere classified, initial encounter (principal); Y83.8 Other surgical procedures as the cause of abnormal reaction of the patient, or of later complication, without mention of misadventure at the time of the procedure; Y92.89 Other specified places as the place of occurrence of the external cause; I13.2 Hypertensive heart and chronic kidney disease with heart failure and with stage 5 chronic kidney disease, or end stage renal disease; E11.22 Type 2 diabetes mellitus with diabetic chronic kidney disease; N18.6 End stage renal disease; I50.9 Heart failure, unspecified; J44.9 Chronic obstructive pulmonary disease, unspecified; F32.9 Major depressive disorder, single episode, unspecified; F41.9 Anxiety disorder, unspecified; M19.90 Unspecified osteoarthritis, unspecified site; K21.9 Gastro-esophageal reflux disease without esophagitis; E11.40 Type 2 diabetes mellitus with diabetic neuropathy, unspecified; E66.01 Morbid (severe) obesity due to excess calories; Z68.36 Body mass index [BMI] 36.0-36.9, adult; Z88.1 Allergy status to other antibiotic agents; Z88.8 Allergy status to other drugs, medicaments and biological substances; Z88.3 Allergy status to other anti-infective agents; Z91.013 Allergy to seafood; Z87.440 Personal history of urinary (tract) infections; Z90.49 Acquired absence of other specified parts of digestive tract; Z79.4 Long term (current) use of insulin; Z86.14 Personal history of Methicillin resistant Staphylococcus aureus infection; Z99.2 Dependence on renal dialysis; Z98.51 Tubal ligation status; Z98.890 Other specified postprocedural states; Z83.3 Family history of diabetes mellitus

== ENCOUNTER 2018-11-16 21:09 | Inpatient (IN) | payer MEDICARE ==
[~2018-11-16] VITALS: Ht 162.6 cm; Wt 89.5 kg
--- NOTE | ~2018-11-16 | CON ---
[place], [place] REPORT OF CONSULTATION NAME: [facility] MID[facility]TON [facility]: [id number] UNIT #: [id number] ROOM: [facility] DOCTOR: HANS MCGUIRE,JULY BIRTHDATE: [birth year] DOS: 11/19/2018 HISTORY OF PRESENT ILLNESS: The patient is a 53-year-old female who is well known to Infectious Disease. We last saw her in early October. She was hospitalized in September with a high-grade VRE bacteremia with positive blood cultures from October 21, , and . She had a YONG on 10/29 which showed no vegetation. She had a Tesio removed at that time, the tip of which grew VRE. She also had heel cultures, which grew VRE and Stenotrophomonas. She had a MediPort removed. The tip culture was negative. She was discharged to an area fci with 4 weeks of daptomycin ordered every hemodialysis. She was readmitted in October with shortness of breath, COPD exacerbation, CHF exacerbation. She continues to smoke. She is noncompliant. She had ear drainage, apparently an ear culture from the right ear was done on the 11/12 which grew ESBL E. coli. At some point, she was given gentamicin drops for the ear. Infectious Disease was not involved in that hospitalization. She was readmitted on 11/16 with shortness of breath. A CT of the chest demonstrated a right pleural effusion and patchy airspace opacities concerning for superimposed pneumonia, greater on the left lower lobe. She was started on Merrem for possible healthcare-associated pneumonia. She had a chest tube placed yesterday. She has had significant improvement in her breathing as well as her mentation per nursing. Her admitting blood cultures from the remained sterile. Her MRSA screen was sterile. Pleural fluid cultures remained sterile. ID is now consulted for her numerous infectious disease conditions as outlined above. The patient was seen in consultation as well yesterday by palliative care. A CT has been ordered of her sinuses. She continues to complain of difficulty hearing in her right ear as well as has some pain there. Apparently, she did have drainage per nursing. It appeared to possibly be consistent with earwax. She has no drainage now. She is feeling much better, been afebrile other than the one low grade temperature of 100.1 on the 23rd. WBCs were originally 17.4 on admission, they have improved to 11.2. PAST MEDICAL HISTORY: As above as well as chronic respiratory failure; end-stage renal disease, on hemodialysis; heart failure; chronic hyperkalemia; COPD with continued tobacco abuse; type 2 diabetes; diabetic neuropathy; chronic pain; hyperlipidemia; hypothyroidism; generalized anxiety disorder; status post x 2; multiple right foot surgeries. SOCIAL HISTORY: Continues to smoke most recently estimated 4 cigarettes per day. No alcohol or illicit drug use. She has been in an extended care facility for some time. ALLERGIES: Include IODINE, ERYTHROMYCIN BASE, CLARITHROMYCIN, ZOSYN, SHELLFISH. CURRENT MEDICATIONS: Merrem, daptomycin, PhosLo, Lyrica, Reglan, Ativan, Cymbalta, Coreg, Norvasc, gentamicin drops to the right ear, DuoNeb, Zofran, [place], Humulin, heparin, albumin. LABORATORY DATA: WBC is 11.2, platelets 209. BUN 68, creatinine 4.87. Last C-reactive protein on 11/16 was 7.61. [place], [place] REPORT OF CONSULTATION NAME: KARTHIKEYAN MIDDLETON UNIT #: [id number] ROOM: [facility] DOCTOR: HANS MCGUIRE,JULY BIRTHDATE: [birth year] REVIEW OF SYSTEMS: As above in history of present illness. Again is feeling better. Some nausea, mostly yesterday with the pain that she had from the chest tube that has improved today. Breathing is much improved. Denies cough. No fevers or shaking chills. She continues to have pain at the chest tube site as well as complains of difficulty hearing with her right ear and discomfort in the right ear; blind in the left eye; end-stage renal disease, on hemodialysis; no clotting disorders; peripheral neuropathy; chronic lower extremity edema. Further review of systems unremarkable. PHYSICAL EXAMINATION: VITAL SIGNS: Temperature 97.7, pulse 73, respirations 14, BP 130/47. GENERAL: A 53-year-old female, chronically ill in appearance, in no acute distress. HEAD, EYES, EARS, NOSE AND THROAT: Normocephalic, atraumatic. Right pupil is round and reactive to light. Left pupil is unresponsive. OROPHARYNX: No exudates. No thrush. No cervical lymphadenopathy. NECK: Supple. Right tympanic membrane shiny with effusion, few bubbles present. No purulence. Fluid appears to be clear. She has no active drainage. There is no erythema of the canal. She does have some discomfort with the exam. LUNGS: Fairly clear to auscultation. Right chest tube draining serous fluid. Respirations even and unlabored. HEART: Regular rhythm. Murmur noted. ABDOMEN: Soft, obese, nontender, no masses. EXTREMITIES: Mild edema. Right lower extremity is wrapped to the knee with a VAC in place. She has a Tesio, right chest, which is dressed. SKIN: Warm, dry, free of rashes. ASSESSMENT AND PLAN: 1. High-grade vancomycin-resistant Enterococcus bacteremia. YONG was negative for vegetation. 2. Infected Tesio status post removal during prior hospitalization. Plan: She is to continue daptomycin for a total of 4 weeks. Blood cultures cleared as of 10/29. 3. Healthcare-associated pneumonia, on empiric Merrem at this point in time. She is also receiving gentamicin drops for ESBL E. coli, which was cultured from the right ear. However, she has no ongoing drainage. Does have what appears to be tympanic membrane effusion, but there is no purulence or erythema. Plan: We will continue the daptomycin and Merrem and for now, the gentamicin eardrops. Follow up on the CT of the sinuses. They are to be obtained today. ADDENDUM I agree with the assessment and plan. I reviewed the labs and imaging and made the necessary changes in the note. [place], [place] REPORT OF CONSULTATION NAME: EMIKARTHIKEYAN K UNIT #: [id number] ROOM: [facility] DOCTOR: HANS MCGUIRE BIRTHDATE: [birth year] JULY SHAYLA MAXWELL Alicia Dickerson MD CM:CONSTR:REPORT OF CONSULTATION 1452 11/21/18 0632 interface
--- NOTE | ~2018-11-16 | PR ---
[place], [place] PROGRESS NOTE NAME: KARTHIKEYAN MIDDLETON [facility] #: [id number] UNIT #: [id number] ROOM: 425 DOCTOR: FIFI MUHAMMAD MD,RENÉ BIRTHDATE: [birth year] DOS: 11/22/2018 SUBJECTIVE: She has been noted comfortable at this time, transferred from the intensive care unit to the telemetry floor. The patient's ____ yesterday successfully without difficulty at the bedside by the paramedical aide. She has not been noted any symptoms of fever or chills. Complaining of pain in the ear. Denies symptoms of hematemesis, melena, or hematochezia. OBJECTIVE: VITAL SIGNS: Normal temperature, respiratory rate 22, heart rate 81, blood pressure 120/66 recorded this morning. Pulse oxygen saturation recorded as 98% saturation on 5 liters nasal cannula. HEENT: Examination shows head was atraumatic. Eyes nonicterus. NECK: Supple. CARDIOVASCULAR: S1, S2 audible. LUNGS: The patient mild decreased breaths in the lungs bilaterally. ABDOMEN: Soft, nontender. EXTREMITIES: No new change. IMPRESSION: 1. The patient has end-stage renal failure, resolved. 2. Bacteremia with VRE. 3 Resolving acute pneumonia as well. 4. The patient with end-stage renal failure, on hemodialysis. 5. Resolving acute on chronic hypoxic respiratory failure. 6. Exudative pleural fluid pending cytology. PLAN OF TREATMENT: No change in pulmonary standpoint. Continue current plan of treatment, transfer to long-term acute facility was pending at this time. No change in treatment will be necessary. Continue the BiPAP with the use of oxygen supplementation intermittently as ordered. RENÉ CALIX MD CM:PNTRANS [id number] RENÉ MUHAMMAD MD 11/22/182116 interface
--- NOTE | ~2018-11-16 | PR ---
[place], [place] PROGRESS NOTE NAME: KARTHIKEYAN MIDDLETON UNIT #: [id number] ROOM: 425 DOCTOR: PATRICIA ALSTON BIRTHDATE: [birth year] DOS: 11/21/2018 SUBJECTIVE: The patient is seen and examined. No reports of concern from overnight nursing. The patient is asleep and comfortable on the BiPAP, will awaken to arousable. She denies any complaints and she states that her breathing is doing okay. She denies any worsening pain, pus, or bleeding from the chest tube site. She denies any lightheadedness or dizziness. She states her ear is still bothering her, but she says it has not worsened. She denies any nausea or vomiting or excessive fatigue from the dialysis. OBJECTIVE: VITAL SIGNS: Otherwise, noted to be stable. HEENT: BiPAP present at 14/8 with 40% FiO2, PEEP of 5, breathing comfortably. Sclerae nonicteric. NECK: No JVD, no edema. CARDIOVASCULAR: Regular rate and rhythm. No murmurs, rubs or gallops. PULMONARY: Diminished, but clear to auscultation bilaterally. ABDOMEN: Soft and compressible with no rebound, rigidity or guarding. EXTREMITIES: No acute joint deformity. Right lower extremity is currently bandaged with a wound VAC in place. NEUROLOGIC: Cranial nerves 2-12 intact. ASSESSMENT: 1. Chronic respiratory failure with use of BiPAP. 2. Hospital-acquired pneumonia. 3. History of vancomycin-resistant enterococci infections. 4. Pleural effusion, status post right chest tube placement. TREATMENT PLAN: The chest tube has only put out 25 mL in a 24-hour period and cultures are noted to be negative at this time. We removed the chest tube at the bedside and the patient is safe to be downgraded from the ICU. We will reassess the patient in the morning for progression of the illness. PATRICIA ALSTON DO [place], [place] PROGRESS NOTE NAME: KARTHIKEYAN MIDDLETON UNIT #: [id number] ROOM: 425 DOCTOR: PATRICIA ALSTON BIRTHDATE: [birth year] RENÉ CALIX MD CM:MIRIAM [id number] PATRICIA ALSTON 11/22/18 0525 interface
--- NOTE | ~2018-11-16 | EKG ---
[place], [place] ELECTROCARDIOGRAM REPORT NAME: KARTHIKEYAN MIDDLETON UNIT #: [id number] ROOM: [facility] DOCTOR: MELYSSA DRAFT REPORT BIRTHDATE: [birth year] [facility] Test Date: 2018-11-16 Test Time: 21:31:11 Pat Name: KARTHIKEYAN MIDDLETON Department: Room: [facility] Gender: F Senior Net Application Developer: ALICJA : 1965 Requested By: SARA FRANCO Order Number: [id number] Reading MD: Silvestre Lin Measurements Intervals [place] Rate: 73 P: -6 KS: 202 QRS: 53 QRSD: 100 T: 14 QT: 369 QTc: 407 Interpretive Statements Sinus rhythm Borderline prolonged KS interval Low voltage, precordial leads Compared to ECG 10/21/2018 05:54:17 Low QRS voltage now present Myocardial infarct finding no longer present Electronically Signed On 11-17-2018 12:01:32 PDT by Silvestre Lin CM:EKGRPT:ELECTROCARDIOGRAM REPORT 30 1201 SARA MCMAHON DRAFT REPORT SARA FRANCO DO
--- NOTE | ~2018-11-16 | CON ---
[place], [place] REPORT OF CONSULTATION NAME: K[facility]IKEYAN MIDDLETON [facility] [id number] UNIT #: [id number] ROOM: 425 DOCTOR: PATRICIA ALSTON BIRTHDATE: [birth year] DOS: REQUESTED BY: Dr. Lluvia Presley. REASON FOR CONSULTATION: Pneumonia. HISTORY OF PRESENT ILLNESS: This is a 53-year-old female who presented to [facility] after recent discharge on 11/13/2018. The patient came back during the night with complaints of increasing shortness of breath. She denied having any other symptoms at that time such as chest pain or palpitations. No fevers, no chills, no abdominal pain, nausea or emesis. She had not been coughing up any mucus at that time. REVIEW OF SYSTEMS: GENERAL: The patient states she feels fatigued and "lousy". HEENT: Normocephalic, atraumatic. Eyes are nonicteric. NECK: Large neck circumference with no JVD. CARDIOVASCULAR: S1, S2 present. No murmur, rubs or gallops. PULMONARY: Mild rhonchi bilaterally, diminished bilaterally, worse on the right. GASTROINTESTINAL: Nontender. No rebound, rigidity or guarding. GENITOURINARY: No suprapubic tenderness. No Fry present. EXTREMITIES: No gross deformity and edema in the lower extremities. NEUROLOGICAL: Cranial nerves 2-12 are grossly intact. PAST MEDICAL HISTORY: Significant for: 1. Recent diagnosis of VRE of the blood from the dialysis catheter. New catheter has been placed and she is currently being treated with daptomycin. 2. Pseudomonas in the right ear canal for which she is receiving gentamicin drops. 3. Chronic respiratory failure. 4. Acute respiratory failure associated with healthcare-acquired pneumonia. 5. End-stage renal failure, on dialysis. 6. Systolic heart failure with cor volume overload. 7. Chronic hyperkalemia. 8. Chronic obstructive pulmonary disease with continued nicotine abuse. 9. Type 2 diabetes. 10. Diabetic neuropathy. 11. Chronic pain. 12. Mixed hyperlipidemia. 13. Hypothyroidism. 14. Generalized anxiety disorder. PAST SURGICAL HISTORY: 1. History of section x 2. 2. History of foot surgery, especially of the right lower extremity. 3. Status post laparoscopic appendectomy. SOCIAL HISTORY: Does not drink alcohol, does not use illicit drugs. Current tobacco user, 4 cigarettes per day for the past 17 years. [place], [place] REPORT OF CONSULTATION NAME: KARTHIKEYAN MIDDLETON [facility] [id number] UNIT #: [id number] ROOM: 425 DOCTOR: PATRICIA ALSTON BIRTHDATE: [birth year] FAMILY HISTORY: Unknown at this time. CURRENT MEDICATIONS: Include meropenem q. 12, daptomycin q. 48 hours, PhosLo t.i.d. with meals, Lyrica 100 b.i.d., Reglan 5 q.i.d., Ativan 0.5 b.i.d., Cymbalta 60 daily, Coreg 6.5 b.i.d., amlodipine 5 daily, gentamicin q. 8 hours, albuterol q. 6, Zofran 8 mg q. 8, Washburn 1 tab q. 6 as needed, Humulin insulin a.c. and at bedtime, heparin per dialysis orders. ALLERGIES: INCLUDE: 1. IODINE. 2. ERYTHROMYCIN BASE. 3. CLARITHROMYCIN. 4. TAZOBACTAM. 5. PIPERACILLINS. 6. SHELLFISH. LABORATORY DATA: Indicates patient arrived with a white count of 17.4, hemoglobin 7.5, hematocrit 24, platelets 240. INR is 1.1. On arrival, her electrolytes, the patient's potassium was noted at 7.1 with a BUN and creatinine of 86 and 5.32, GFR of 8. This slowly decreased with potassium of 6.9. After hemodialysis, the patient resolved to a potassium of 4.0. Cultures such as blood cultures, body fluid cultures of pleural fluid and methicillin-resistant Staphylococcus aureus of the nares have been negative. IMAGING: Initial chest x-ray taken for shortness of breath showed CHF with pulmonary edema and small right pleural effusion; bibasilar airspace disease, right greater than left, may represent a combination of atelectasis and edema with superimposed pneumonia. CT of the chest showed cardiomegaly and pulmonary vascular congestion with a moderate right pleural effusion, patchy airspace opacities concerning for superimposed pneumonia, greater in the left lower lobe and questionable cirrhotic liver morphology. IMPRESSION: 1. Healthcare-associated pneumonia. 2. Pleural effusion. 3. Acute on chronic respiratory failure that is BiPAP dependent. 4. End-stage renal disease, on dialysis. 5. Congestive heart failure. 6. Depression. 7. Diabetic foot ulcer. 8. Severe obesity. 9. Supplemental oxygen dependent. 10. History of bacteremia. 11. ESBL pseudomonal infection. TREATMENT PLAN: The patient is to move with palliative care today regarding goals of care. Right pigtail chest tube is to be placed for palliative measures to drain the right pleural effusion. Meropenem is to be started and dosed on [place], [place] REPORT OF CONSULTATION NAME: KARTHIKEYAN MIDDLETON UNIT #: [id number] ROOM: 425 DOCTOR: PATRICIA ALSTON BIRTHDATE: [birth year] the pharmacy based on the patient's current renal disease. If the patient is to remain a full code, it is advised the patient to be transferred to [facility] for higher level of care and ENT examination of the ear regarding her pseudomonal infection. If she is to become comfort care or palliative, she will continue treatment here as recommended. PATRICIA ALSTON, DO RENÉ CALIX MD CM:CONSTR:REPORT OF CONSULTATION 1249 12/11/18 1140 interface
--- NOTE | ~2018-11-16 | PR ---
[place], [place] PROGRESS NOTE NAME: KARTHIKEYAN MIDDLETON [facility] #: [id number] UNIT #: [id number] ROOM: [facility] DOCTOR: MELISSA CORTES MD BIRTHDATE: [birth year] DOS: SUBJECTIVE: The patient is about the same, does not have any new complaints. OBJECTIVE: VITAL SIGNS: Graphic trend shows a pressure of 121/50, pulse of 78, and respirations 14. LUNGS: Diminished breath sounds. HEART: Regular. ABDOMEN: Obese. EXTREMITIES: No swelling in the left, right in a cast. LABORATORY DATA: Glucose 140, BUN 68, creatinine 4.87. Sodium 134, potassium 4.7, chloride 96. WBC count is 11.2, hemoglobin 7.0, hematocrit 23.1, platelets 209. ASSESSMENT AND PLAN: 1. End-stage renal failure, on dialysis. 2. Adult failure to thrive. Plan is to transfer her to [facility], precertification is pending. 3. Right-sided pleural effusion, status post chest tube placement. 4. Chronic otitis media. There is no evidence of malignant otitis media. CT of the sinuses as well as mastoid will be performed today. He is already on local and gentamicin eyedrops. Infectious Disease is consulted. 5. Pneumonia, bilateral lower lobes on meropenem and daptomycin. 6. Recent vancomycin-resistant Enterococci of the blood from dialysis catheter, which has been removed. A new one has been inserted. MELISSA CORTES MD CM:PNTRANS [phone] MELISSA CORTES MD 11/19/18 0952 interface
--- NOTE | ~2018-11-16 | CON ---
[place], [place] REPORT OF CONSULTATION NAME: KARTHIKEYAN MIDDLETON [facility] #: [id number] UNIT #: [id number] ROOM: [facility] DOCTOR: FIFI MUHAMMAD MD,RENÉ BIRTHDATE: [birth year] DOS: 11/18/2018 PULMONARY CONSULTATION, EVALUATION AND MANAGEMENT CONSULTATION REQUESTED BY: Dr. Lluvia Presley. REASON FOR CONSULTATION: For assessment of respiratory failure, possibility of acute pneumonia. HISTORY OF PRESENT ILLNESS: The patient was independently seen and examined in eocf-br-eqap encounter, history was confirmed. Physical examination was performed. Labs were reviewed. The note done by the medical delivery technician was approved. The assessment and management of today's visit was personally completed. This is a 53-year-old white female patient, very well known to me with past hospitalization. The patient stated in the Intensive Care Unit noted severe acute chronic hypoxic respiratory failure, requiring intubation and mechanical ventilation, noted fluid overload, congestive heart failure as well. The patient has been treated in this hospital and subsequently discharged to the nursing facility. The patient was staying at the nursing facility, being treated with BiPAP and oxygen supplementation, other therapies. She has been readmitted to the hospital under care of Dr. Lluvia Presley on the date of 11/17/2018. The patient was brought to the hospital. The patient was noted change in mental status with hypoxia, inability to maintain oxygen saturation 92% or greater with the usual oxygen support and the BiPAP. The patient has been assessed and admitted to the Intensive Care Unit for further medical management. The patient has been currently treated with oxygen supplementation, high-flow nasal cannula and the BiPAP. She was noted awake and alert. Shortness of breath reported with symptoms of cough and sputum expectoration. Denies symptoms of chest pain. There were no symptoms of hemoptysis stated by the patient. REVIEW OF SYSTEMS: CONSTITUTIONAL SYMPTOMS: Fatigue and tiredness noted without any fever or chills. EYES: Denies any burning, redness, or tenderness. EARS, NOSE, THROAT SYMPTOMS: Noted with significant discharge ongoing from the left ear with the recent culture on last hospitalization, abnormal for ESBL, E. coli. Denies sore throat or hoarseness. CARDIOVASCULAR SYSTEM: Denies anginal pain. Denies any edema of the lower extremity at the present time. There were no symptoms of palpitations. There was no angina pain. GASTROINTESTINAL SYMPTOMS: Denies dysphagia, nausea, vomiting, diarrhea, abdominal pain, hematemesis, melena, or hematochezia. GENITOURINARY SYMPTOMS: End-stage renal failure, on hemodialysis. MUSCULOSKELETAL SYMPTOMS: The patient has history of ankle fracture with surgery done previously with reconstruction of the right ankle, but still has a cast in place intermittently and the wound. CENTRAL NERVOUS SYSTEM: No dizziness, headache, diplopia or syncopal episode. General weakness and fatigue were noted, mostly bedbound status. [place], [place] REPORT OF CONSULTATION NAME: KARTHIKEYAN MIDDLETON UNIT #: [id number] ROOM: [facility] DOCTOR: ARTHUR TEJADA MDM BIRTHDATE: [birth year] Remaining systems were reviewed. They were noted all negative. PAST MEDICAL HISTORY: 1. Noted with hospitalization for several days for bacteremia related to the dialysis catheter with vancomycin-resistant Enterococcus and bacteremia. The dialysis catheter was subsequently removed with temporary dialysis catheter and the permanent dialysis catheter inserted prior to discharge to the nursing facility. 2. History of chronic hypoxic respiratory failure and acute right pleural fluid, multifactorial related to congestive heart failure, end-stage renal failure and other reason as well. 3. History of congestive heart failure with diastolic dysfunction. 4. Bronchial asthma, uncomplicated, moderate, persistent. 5. Obstructive sleep apnea disorder, nonadherence with treatment. 6. Moderate obesity. 7. Restless legs syndrome. 8. End-stage renal failure, on hemodialysis. 9. Peripheral arterial disease. 10. Type 2 diabetes mellitus. 11. Chronic pain syndrome. 12. Otitis externa with E. coli, ESBL species noted since 10/2018. PAST SURGICAL HISTORY: 1. . 2. MediPort insertion. 3. Temporary dialysis catheter and permanent dialysis catheter. Removal of the dialysis catheter in 10/2018 with insertion. Temporary dialysis catheter removal and the permanent dialysis catheter insertion again done in 10/2018. 4. Partial amputation, right toe. 5. Right ankle surgery. The patient had debridement of the wound and other interventions. SOCIAL HISTORY: The patient is a long-term resident of a nursing facility. There is no history of alcohol use or illicit drug use. Tobacco use noted since teenager. Intermittent tobacco use was still reported half a pack to a pack of cigarettes per day. FAMILY HISTORY: The patient's father with complication related pancreatitis. Mother history was unknown. MEDICATIONS: Current medications, which were administered were noted as daptomycin, Cymbalta, Coreg, Norvasc, DuoNeb, Lyrica, Ativan, gentamicin drops in the ears and other medications. DRUG ALLERGIES: NOTED ALLERGIC TO: 1. IODINE. 2. BIAXIN. 3. ZOSYN, WHICH IS DENIED BY THE PATIENT AT THIS TIME. PHYSICAL EXAMINATION: [place], [place] REPORT OF CONSULTATION NAME: KARTHIKEYAN MIDDLETON UNIT #: [id number] ROOM: [facility] DOCTOR: FIFI MUHAMMAD MD,RENÉ BIRTHDATE: [birth year] GENERAL: A 53-year-old female patient currently noted awake and alert, on 10 liters high-flow nasal cannula, sitting comfortably, in no distress. Height of 5 feet 4 inches, weight of 209 pounds, BMI 35.9. VITAL SIGNS: Temperature noted low grade 100.1 degrees Fahrenheit, respiratory rate ranged between 12-14, heart rate 62-74, blood pressure 107/74-120/52. Pulse oxygen saturation recorded on 10 liters high-flow nasal cannula 94% saturation with the BiPAP 100% saturation on 40% oxygen. HEENT: Head was atraumatic. Eyes nonicterus. The patient was noted with the ear problem, fluid in the right ear. NECK: Supple. CARDIOVASCULAR SYSTEM: S1, S2 audible. LUNGS: Noted with severe decreased breaths in the lower portion of the lung, greater on the right than the left side. There was no wheezing. ABDOMEN: Soft, nontender. Bowel sounds present. EXTREMITIES: The patient was noted with partial calcification of the right ankle. There was no edema, clubbing, cyanosis, otherwise noted. MUSCULOSKELETAL: Without any acute deformities. CENTRAL NERVOUS SYSTEM: No gross focal neurologic deficits. VISIBLE SKIN: No lesions or rashes. LABORATORY DATA: Reviewed for this admission for this patient. CBC that was done on 11/16/2018 in the emergency room; WBC count 17.4, hemoglobin 7.5, platelet count was noted at 240,000. The PT, PTT on 11/16/2018 was normal. The lactic acid normal as well. Chest x-ray; increased infiltration was noted with pulmonary edema picture and possible pleural fluid bilaterally suspected. CT scan of the chest, which was done without contrast shows moderate to large right pleural fluid noted with area of atelectasis as well as infiltration with air bronchogram. Medial left lower lobe infiltration noted with air bronchogram as well with interstitial edema picture as well. Renal function panel that was done yesterday; BUN 34, creatinine 2.76. Glucose 130. There were no labs done today. The culture of the previous ear discharge on the right side was noted with ESBL species. IMPRESSION: 1. The patient will be currently admitted to the hospital with acute on chronic hypoxic respiratory failure with symptoms of shortness of breath, currently suspected acute community-acquired pneumonia with gram-negative infection to be considered because of recent hospitalization and detention residency very likely. 2. ESBL involving the external ear as well with still persistent pain and discharge reported by the patient. 3. The patient with zeirgpuc-rq-szrza right pleural fluid, which will be assessed for the reason of either pneumonia or infection related to the renal failure and congestive heart failure with diastolic dysfunction. 4. End-stage renal failure, on hemodialysis. 5. Resolution of previously known bacteremia with vancomycin-resistant Enterococcus as well, completing the antibiotic coverage in the next few days of total duration as recommended by the Infectious Disease specialist. 6. History of restless leg syndrome. 7. Obstructive sleep apnea disorder, nonadherence with treatment. [place], [place] REPORT OF CONSULTATION NAME: KARTHIKEYAN MIDDLETON UNIT #: [id number] ROOM: [facility] DOCTOR: RENÉ TEJADA MD BIRTHDATE: [birth year] 8. Nicotine dependence as well. PLAN OF MANAGEMENT: The patient will be started on imipenem based on kidney function with medical record of ESBL infection and suspected pneumonia. Chest tube insertion was also suggested for this patient by Interventional Radiology services. Then, fluid will be analyzed to determine the etiology. BiPAP will be used as previously known to stabilize the respiratory status. The Palliative Care consultation has been also requested by Dr. Lluvia Presley. The patient continued to remain as a full code. Recommend the patient to transfer to the facility where she could be assessed by the ENT surgeon and specialist for the medical management of current infection in the ER with ESBL. If the patient choose to have a palliative care patient or hospice care patient, other comfort measures, certainly she could be continually treated in this hospital and the chest tube insertion will be done for more palliation for the patient at that point. Bronchodilators to be continued. Continue other therapy and plan of management. Completion of daptomycin as recommended total duration for the medical management of the bacteremia with the VRE. Continue hemodialysis per order from Nephrology services. Other additional treatment changes will be made based on progression of the illness. Thanks for allowing me to participate in the care of this patient. RENÉ CALIX MD CM:CONSTR:REPORT OF CONSULTATION 1224 11/19/18 0104 interface
--- NOTE | ~2018-11-16 | PR ---
[place], [place] PROGRESS NOTE NAME: KARTHIKEYAN MIDDLETON [facility] #: [id number] UNIT #: [id number] ROOM: 425 DOCTOR: FIFI MUHAMMAD MDRENÉ BIRTHDATE: [birth year] DOS: 11/21/2018 The patient was independently seen and examined in itde-qz-zemj encounter, history was confirmed, labs were reviewed. Assessment and management was personally completed. Note done by the medical practice assistant was approved as well. SUBJECTIVE: The patient was noted to be awake, using the BiPAP this morning and also receiving hemodialysis. She has not been reporting any hemodynamic instability. Continued on the antibiotic locally into the ear, gentamicin and also receiving IV meropenem for the ESBL species. The chest tube remains in place. The patient with progressive reduction in the drainage of the pleural fluid noted from the chest tube. She has not been noted with any acute hemodynamic instability as well. She was still complaining of earache on the right side as well as the drainage from the ear. Remaining systems were reviewed, they were noted all negative. OBJECTIVE: VITAL SIGNS: For the patient recorded as temperature of 99.2 degree Fahrenheit, respiratory rate 12, heart rate of 69, blood pressure 154/76. Pulse ox saturation 40% oxygen, 98% saturation. HEENT: Examination shows head was atraumatic. Eyes nonicterus. NECK: Supple. CARDIOVASCULAR: S1, S2 audible. LUNGS: Ladf-yk-wcihhrvp decreased breath sounds in the lung noted bilaterally. ABDOMEN: Soft with mild to moderate obesity. Bowel sounds present. EXTREMITIES: No change. MUSCULOSKELETAL: Without acute deformities. LABORATORY DATA: No labs were done essentially today. DIAGNOSTIC STUDIES: The chest x-ray that was done yesterday as ordered was reviewed, shows chest tube in place with a small pleural fluid noted with atelectasis and infiltration in the right lower lobe. Improvement in the aeration of the left lung was also noted. IMPRESSION: 1. Acute pneumonia. 2. Extended spectrum beta lactamase infection of the ear as well. 3. Acute on chronic hypoxic respiratory failure, which was resolving. 4. Fluid overload with end-stage renal failure/congestive heart failure. The cytology of pleural fluid still remains pending, need to be monitored to rule out any malignant process. PLAN OF MANAGEMENT: Continuation of hemodialysis. The patient was planned for transfer to long-term acute care facility at the present time where she will be seen by the ENT specialist for any intervention needed for mastoid sinus for infection ____ as well as infection of the right ear. Case discussed with Dr. Lluvia Presley. Infectious Disease also recommending the patient be transferred for the assessment of ENT to long-term acute care facility. She may be [place], [place] PROGRESS NOTE NAME: KARTHIKEYAN MIDDLETON UNIT #: [id number] ROOM: 425 DOCTOR: FIFI MUHAMMAD MD,RENÉ BIRTHDATE: [birth year] transferred at any time for that reason today or later upon acceptance for transfer to LTAC facility. RENÉ CALIX MD CM:PNTRANS [phone] RENÉ MUHAMMAD MD 11/22/18 0228 interface
--- NOTE | ~2018-11-16 | PR ---
[place], [place] PROGRESS NOTE NAME: KARTHIKEYAN MIDDLETON [facility] #: [id number] UNIT #: [id number] ROOM: [facility] DOCTOR: FIFI MUHAMMAD MD,RENÉ BIRTHDATE: [birth year] DOS: 11/20/2018 SUBJECTIVE: The patient was resting comfortably on the bed this morning of assessment. Has not been noted any ongoing acute respiratory complaints. ____ symptoms of chest pain, fever, or chills reported. Completed hemodialysis yesterday successfully without difficulty. The patient had a CT scan of the paranasal sinuses that was done shows complete opacification of left mastoid sinus, right middle ear cavity, and external auditory canal. There was no definite destruction of the bone reported. The patient denies symptoms of hemoptysis. Denies symptoms of fever or chills. Remaining systems were reviewed. They were noted limited, but negative. PHYSICAL EXAMINATION: VITAL SIGNS: For the patient recorded showed normal temperature, respiratory rate of 18, heart rate of 67, blood pressure 128/54. Pulse oxygen saturation recorded as 99% on 40% oxygen 6 liters nasal cannula, previously 94% saturation. HEENT: No new changes. CARDIOVASCULAR: S1, S2 audible. LUNGS: The patient with decreased breath sounds in the lungs noted bilaterally. ABDOMEN: Soft, nontender. Bowel sounds present. EXTREMITIES: The patient noted without any acute edema. Catheter noted in place, the right lower extremity. MUSCULOSKELETAL: Noted without any acute deformities. VISIBLE SKIN: No lesions or rashes. CENTRAL NERVOUS SYSTEM: General weakness, but no focal deficit. IMPRESSION: 1. The patient with infection of the right ear with extended-spectrum beta-lactamase. 2. Mastoiditis. 3. The patient with pleural fluid, which is noted, ____. Chest tube remains in place on the right side. The drainage of the pleural fluid noted as 120 mL. The culture so far showed no bacterial growth. Cytology was pending. 4. End-stage renal failure, on hemodialysis. 5. History of chronic hypoxic respiratory failure, gradually improving. PLAN OF TREATMENT: Obtain a chest x-ray to assess the current pleural fluid ____ of the lungs. Continue antibiotics, bronchodilators, and oxygen supplementation. The patient was still recommended, but transfer to another facility for ENT consultation should be done. [place], [place] PROGRESS NOTE NAME: KARTHIKEYAN MIDDLETON UNIT #: [id number] ROOM: [facility] DOCTOR: RENÉ TEJADA MD BIRTHDATE: [birth year] RENÉ CALIX MD CM:PNTRANS [phone] RENÉ MUHAMMAD MD 11/20/18820 interface
--- NOTE | ~2018-11-16 | PR ---
[place], [place] PROGRESS NOTE NAME: KARTHIKEYAN MIDDLETON [facility] #: [id number] UNIT #: [id number] ROOM: [facility] DOCTOR: MELISSA CORTES MD BIRTHDATE: [birth year] DOS: SUBJECTIVE: The patient is resting comfortably, does not have any complaints this morning. We are trying to discharge her to [facility]. PHYSICAL EXAMINATION: VITAL SIGNS: Blood pressure is 128/54, pulse of 60, respirations 15, temperature 98.5. LUNGS: Diminished breath sounds. Clear. HEART: Regular. ABDOMEN: Obese. EXTREMITIES: Without any edema on the left, right in a cast. CT of the sinuses shows opacification of the left mastoid middle ear cavity and external auditory canal. No bony destruction is noticed. ASSESSMENT AND PLAN: 1. Vancomycin-resistant Enterococcus of the blood, on daptomycin. 2. Type 2 diabetes mellitus. Blood sugars controlled. 3. Bilateral pneumonia, on IV meropenem. 4. Pleural effusion, right side, status post chest tube placement by Dr. Barr. Drainage has subsided, hopefully to be removed today. 5. End-stage renal failure, on dialysis. 6. Extended-spectrum beta-lactamase isolated in the ear, on gentamicin. CT showing opacification. It could be malignant otitis externa, even though there is no purulence coming from the ear, it is clear watery fluid. Arrangements are being made to go to [facility] if we can send her; otherwise, we will discuss with Dr. Barr about possibility of transfer to a tertiary care. MELISSA CORTES MD CM:PNTRANS [id number] MELISSA CORTES MD 11/21/18 0333 interface
--- NOTE | ~2018-11-16 | WRIGHTHP ---
[place], [place] PATIENT HISTORY AND PHYSICAL EXAM NAME: KARTHIKEYAN MIDDLETON [facility] #: [id number] UNIT #: [id number] ROOM: [facility] DOCTOR: MELISSA CORTES MD BIRTHDATE: [birth year] DOS: 11/17/2018 HISTORY OF PRESENT ILLNESS: The patient was discharged from the hospital on 11/13/2018. She comes back during the night with complaints of increasing shortness of breath. She denies having any chest pains or palpitations, does not have any fever or chills, does not have any abdominal pain, nausea or any emesis. She has not been coughing up any mucus. PAST MEDICAL HISTORY: Significant for: 1. Recent diagnosis of VRE of the blood from a dialysis catheter. Catheter was removed. The new one was placed. She is on daptomycin. 2. Chronic respiratory failure. 3. Acute respiratory failure on last admission for which she was mechanically ventilated. 4. End-stage renal failure, on dialysis. 5. Systolic CHF with poor volume overload. 6. Chronic hyperkalemia. 7. COPD with continued nicotine abuse. 8. Type 2 diabetes mellitus. 9. Diabetic neuropathy. 10. Chronic pain. 11. Mixed hyperlipidemia. 12. Hypothyroidism. 13. Generalized anxiety disorder. MEDICATIONS: Proventil inhaler, daptomycin 600 every other day for 14 more days, amlodipine 5 daily, PhosLo 667 t.i.d., Coreg 6.25 b.i.d., [place] 5 q.6, lorazepam 0.5 b.i.d., metoclopramide 5 q.i.d., Calcium Sorbitex 8.4 mg daily, Lyrica 100 b.i.d., insulin before meals and at bedtime, nystatin local application. SOCIAL HISTORY: Smoker of about half to 1 pack of cigarettes a day. PHYSICAL EXAMINATION: VITAL SIGNS: Pressure is 115/62, pulse is 62, respirations 18, temperature 98.0. LUNGS: Diminished breath sounds. HEART: Regular. ABDOMEN: Obese. EXTREMITIES: Right leg in a cast with a wound VAC, left without any swelling. Right ear is draining a lot of vax. On examination, a lot of fluid is noticed in the auditory canal and left did not and was fairly within normal limits. ASSESSMENT AND PLAN: 1. The patient with complaints of increasing shortness of breath. CT showing small pneumonia. Dr. Barr has been consulted. The patient is already on daptomycin. It is unsure whether she received anything since discharge. We have restarted it. 2. Vancomycin-resistant Enterococci of the blood for which she is again on daptomycin, which is being continued. [place], [place] PATIENT HISTORY AND PHYSICAL EXAM [facility]: [facility] [id number] UNIT #: [id number] ROOM: [facility] DOCTOR: MELISSA CORTES MD BIRTHDATE: [birth year] 3. End-stage renal failure, on dialysis. 4. Adult failure to thrive with volume overload and poor appetite, poor p.o. intake of food. She does not watch her diet and encouraged the patient to watch her diet. 5. Type 2 diabetes mellitus, insulin dependent with chronic pain. Her overall prognosis remains poor and guarded. She will benefit from palliative care. Consultation has been obtained. MELISSA CORTES MD CM:HISPHYS:PATIENT HISTORY AND PHYSICAL EXAMINATION [id number] MELISSA CORTES MD 11/17/18 1233 interface
--- NOTE | ~2018-11-16 | PR ---
[place], [place] PROGRESS NOTE NAME: KARTHIKEYAN MIDDLETON [facility] #: [id number] UNIT #: [id number] ROOM: [facility] DOCTOR: FIFI MUHAMMAD MD,RENÉ BIRTHDATE: [birth year] DOS: 11/19/2018 PULMONARY PROGRESS NOTE SUBJECTIVE: The patient was noted comfortable at this time, still complaining of pain in the ear, underwent pigtail catheter insertion for the medical management of current pleural fluid. She has not been noted with any symptoms of chest pain. Shortness of breath has been decreased. The requirement of oxygen supplementation also decreased after insertion of the chest tube and drainage of pleural fluid. She has been receiving hemodialysis this morning as she was assessed. REVIEW OF SYSTEMS: Otherwise negative except the earache, discharge still noted, currently treated with antibiotics. Otherwise, review of systems as noted as negative. PHYSICAL EXAMINATION: VITAL SIGNS: For the patient, which are recorded this morning as normal temperature to 100 degrees Fahrenheit last 24 hours. The respiratory rate recorded as 10-13, heart rate 67-81, blood pressure 126/71-115/65. The pulse ox saturation recorded on 6 liters nasal cannula 97% saturation. BiPAP 40% oxygen supplementation 96% saturation. HEENT: No changes from yesterday. Head was atraumatic. Eyes nonicterus. NECK: Supple. CARDIOVASCULAR: S1, S2 audible. LUNGS: Improvement in air entry of the lung on the right side. ABDOMEN: Soft, nontender. Bowel sounds present. EXTREMITIES: Noted without any new changes. MUSCULOSKELETAL: Without any deformities. VISIBLE SKIN: No lesions or rashes. CENTRAL NERVOUS SYSTEM: Noted intact. LABORATORY DATA: Blood culture done on 11/19/2018 showed no bacterial growth. Analysis of pleural fluid of yesterday a total WBCs of 803 with various differential 16% lymphocytes, 25 macrophages, and 17% mesothelial cells. CBC this morning, WBC count 11.2, hemoglobin 7, hematocrit 23.1, platelet count 29,000. BMP this morning, BUN 68, creatinine 4.87. Sodium 134. Culture of the pleural fluid, no bacterial growth. Gram stain, no organism, moderate white blood cells. Chemistry of the pleural fluid was noted with glucose 147, protein 4.5, pH of 7.41. Cholesterol of 83, albumin 2.2 consistent with an exudative effusion. IMAGING STUDIES: The chest x-ray was done after the insertion of the pigtail catheter noted significant improvement in aeration of the lung with residual area of atelectasis infiltration noted in the right lower lobe. Left lung appeared to be free of any acute major infiltration. Overall improvement in aeration noted in the lungs bilaterally. IMPRESSION: 1. Acute on chronic hypoxic respiratory failure. [place], [place] PROGRESS NOTE NAME: [facility] [id number] UNIT #: [id number] ROOM: [facility] DOCTOR: FIFI MUHAMMAD MD,RENÉ BIRTHDATE: [birth year] 2. The patient with history of bronchial asthma, stable. 3. Fluid overload, congestive heart failure. 4. Suspected acute pneumonia as well. 5. Escherichia coli infection, extended-spectrum beta-lactamase of the right ear. 6. End-stage renal failure, on hemodialysis. 7. Exudative effusion at this time on the right side is not clear, it may be from the pneumonia or other etiology remains in consideration for the exudative effusion. PLAN OF TREATMENT: Monitor cytology ____. Continue antibiotics, bronchodilators, oxygen supplementation, and use of the BiPAP. Other therapy, plan of management. Additional treatment changes will be recommended based on progression of the illness. RENÉ CALIX MD CM:PNTRANS [id number] RENÉ MUHAMMAD MD 11/20/18 0050 interface
--- NOTE | ~2018-11-16 | PR ---
[place], [place] PROGRESS NOTE NAME: KARTHIKEYAN MIDDLETON [facility] #: [id number] UNIT #: [id number] ROOM: [facility] DOCTOR: MELISSA CORTES MD BIRTHDATE: [birth year] DOS: 11/21/2018 SUBJECTIVE: The patient is doing well, does not have any new complaints. OBJECTIVE: VITAL SIGNS: Blood pressure is 130/68, pulse of 69, respirations 16, temperature 99.6. LUNGS: Clear. HEART: Regular. ABDOMEN: Obese, soft. EXTREMITIES: Without any edema on the left, right with a wound VAC. ASSESSMENT AND PLAN: 1. End-stage renal failure, on dialysis. 2. Acute diastolic congestive heart failure with volume overload, which has resolved. 3. Noncompliance with poor insight to medical problems. 4. Protein-calorie malnutrition, moderate. 5. Recent VRE of the blood, mastoiditis, on antibiotics. No evidence of malignant otitis externa. 6. Type 2 diabetes mellitus. 7. Severe diabetic neuropathy. 8. Osteomyelitis of the right leg with a wound VAC. The patient is stable and can be discharged to [facility], which approval has been obtained. MELISSA CORTES MD CM:PNTRANS 0841 MELISSA CORTES MD 11/21/18 0943 interface
--- NOTE | ~2018-11-16 | DS ---
[place], [place] DISCHARGE SUMMARY NAME: KARTHIKEYAN MIDDLETON [facility] #: [id number] UNIT #: [id number] ROOM: [facility] DOCTOR: MELISSA CORTES MD BIRTHDATE: [birth year] DOS: HOSPITAL COURSE: The patient is very well known to us. She was recently admitted to the hospital and was found to have VRE of the blood, was placed on daptomycin and discharged on 11/13/2018. On 11/17/2018, she came back to the Emergency Room with complaints of increasing shortness of breath. The patient does not watch her diet, does not have any control over her fluid intake. She was found to be volume overloaded and therefore was admitted. After admission, renal was consulted, extra fluid was removed. She also was found to have small bilateral pneumonia and a CT of the chest, was placed on meropenem in addition to the daptomycin that she was already on. Pulmonary consult, Dr. Barr was obtained. The patient was also found to have a large pleural effusion for which a chest tube has been placed. Chest tube drainage has been minimized over the last few days. She does complain of drainage from the right ear. On exam, it was just clear fluid that is draining. No purulence was noted and a CT of the sinuses was done, which showed opacification of the mastoid area as well as medially a cavity and external auditory canal, but no bony destruction was noticed. Recent culture of the drainage showed ESBL for which gentamicin drops were ordered. Blood cultures have been repeated. They have come back showing no bacterial growth. She does have a wound from her previous dialysis catheter site, which has been packed by the Wound Care nurses. The patient has type 2 diabetes mellitus. Blood sugars are controlled in the low 100s. The patient is still critical to go back to a [facility] and would benefit from placement in an acute care facility. Insurance has approved [employer], so the patient is being discharged today. DISCHARGE MEDICATIONS: Gentamicin eardrops, latanoprost eye drops at bedtime, gentamicin q. 8h to the right ear, DuoNeb q.4h, oxygen titrate BiPAP 14/8, NovoLog sliding scale, Coreg 6.25 twice a day, duloxetine 60 daily, metoclopramide 5 q.i.d., sennosides 8.6 mg at bedtime, Nephro-Aiden 1 tablet daily, amlodipine 5 daily, lanthanum carbonate 500 mg t.i.d., iron 325 daily, lorazepam 0.5 b.i.d., Lyrica 100 b.i.d., MiraLax 17 grams daily, nystatin local application to affected area, Tylenol 650 q. 6 p.r.n., Veltassa 8.4 grams powder pack daily, calcium acetate 667 mg b.i.d. with meals, ondansetron 8 mg q.8 hours p.r.n. for nausea, Pulmicort 0.5 b.i.d., daptomycin 600 mg IV every other day for another 10 more days, [place] 5 q. 6h p.r.n., meropenem 1 gram IV b.i.d. DIAGNOSES: 1. Chronic respiratory failure. 2. Acute respiratory failure from volume overload. 3. Chest tube placement for right pleural effusion. 4. End-stage renal failure, on dialysis. 5. LV systolic dysfunction. [place], [place] DISCHARGE SUMMARY NAME[facility] [id number] UNIT #: [id number] ROOM: [facility] DOCTOR: MELISSA CORTES MD BIRTHDATE: [birth year] 6. Chronic hypokalemia. 7. Chronic obstructive pulmonary disease with continued nicotine abuse. 8. Type 2 diabetes mellitus. 9. Diabetic neuropathy with chronic pain. 10. Mixed hyperlipidemia. 11. Hypothyroidism. 12. Generalized anxiety disorder. 13. Mastoiditis. 14. Osteomyelitis of the right leg. MELISSA CORTES MD CM:DISCHARG 7 MELISSA CORTES MD 11/21/18927 interface
--- NOTE | ~2018-11-16 | PR ---
[place], [place] PROGRESS NOTE NAME: KARTHIKEYAN MIDDLETON UNIT #: [id number] ROOM: [facility] DOCTOR: MELISSA CORTES MD BIRTHDATE: [birth year] DOS: SUBJECTIVE: The patient is resting. She is using a BiPAP, but is able to communicate, does not have any complaints of chest pains or palpitations. She states that she does use a BiPAP at [facility], but it does not feel right when she is using it. She had about 3 kilograms of fluid removed yesterday. OBJECTIVE: VITAL SIGNS: Graphic trend shows a pressure of 123/53, pulse of 64, respirations 11, temperature is 100.1. LUNGS: Diminished breath sounds. Clear. HEART: Regular. ABDOMEN: Obese. EXTREMITIES: Right on a cast with a wound VAC. Left, no swelling. Previous dialysis catheter site is a deep seated infection with packing. LABORATORY DATA: This morning, no labs available. ASSESSMENT AND PLAN: 1. Pneumonia, possible gram negative on IV antibiotics. Dr. Barr is seeing the patient. 2. Chronic respiratory failure on a BiPAP. 3. Adult failure to thrive. The patient's overall prognosis remains poor and guarded. She has multiple medical problems and her prognosis is poor. I suggested the patient consider palliative care. She agreed. Consultation has been obtained. The patient also did not want to go back to [facility]. We will try to look for another one closer, so her boyfriend can visit. Discussed with case management. 4. Chronic osteomyelitis of the left leg followed by wound care, recent muscle graft. Wound VAC has been applied and they are following. 5. Recent VRE of the blood for which she is on daptomycin. 6. End-stage renal failure, on dialysis with acute volume overload, which seems to have corrected after extra fluid removed during dialysis yesterday. Routine labs and chest x-ray to be ordered for tomorrow. [place], [place] PROGRESS NOTE NAME: KARTHIKEYAN MIDDLETON UNIT #: [id number] ROOM: [facility] DOCTOR: MELISSA CORTES MD BIRTHDATE: [birth year] MELISSA CORTES MD CM:PNLISETH [id number] MELISSA CORTES MD 11/18/18 1027 interface
[~2018-11-16 21:09] MED LIST changes: -ALBUTEROL0.63 MG/3 INH; -BROVANA15 MCG/2 M INH; -GENTACIDIN5 ML OT; -GLUCAGON EMERGEN1 M1 IJ; -HEPARIN SO5000 UNIT4 SC; -HYDROMORPHONE2 MG PO; -HYDROXYZINE HCL25 MG PO; -INSULIN LI100 UNIT/1 SQ; -MEROPENEM-500 MG/50 IV; -Synthroid,Levo50 MCG PO
--- NOTE | 2018-11-16 21:20 | NUR ---
PT ANXIOUS, C/O SOB. SPO2 94% NC 10L. AWARE.
[2018-11-16 21:57] LABS: ALBUMIN 3.2 gm/dl (3.1-4.5); ALKALINE PHOSPHATASE 726 U/L (45-117); BUN 86 mg/dl (7-24); CHLORIDE 96 mmol/L (98-107); CREATININE 5.32 mg/dL (0.55-1.02); SGOT/AST 15 IU/L (3-35); SGPT/ALT 44 U/L (12-78); SODIUM 131 mmol/L (136-145); TOTAL PROTEIN 7.8 gm/dL (6.4-8.2)
--- NOTE | 2018-11-16 22:00 | NUR ---
PT MORE RELAXED AT THIS TIME.
[2018-11-16 22:02] LABS: POTASSIUM 7.1 mmol/L (3.5-5.1); TROPONIN I < 0.015 ng/ml (<0.045)
--- NOTE | 2018-11-16 22:03 | NUR ---
LAB CALLED WITH CRITICAL POTASSIUM LEVEL 7.1.MD FRANCO NOTIFIED.
[2018-11-16 22:06] LABS: BASO # 0.1 10*3/uL (0.0-0.1); BASO % 0.5 % (0.0-1.0); EOS # 0.2 10*3/uL (0.0-0.4); EOS % 1.1 % (1.0-4.0); HEMATOCRIT 24.5 % (37.0-47.0); HEMOGLOBIN 7.5 g/dl (12.0-16.0); LYMPH % 5.5 % (27.0-41.0); MEAN CELL VOLUME 97.2 fl (81.0-99.0); MEAN CORPUSCULAR HGB 29.8 pg (27.0-31.0); MEAN CORPUSCULAR HGB CONC 30.6 g/dl (33.0-37.0); MONO # 0.9 10*3/uL (0.1-1.0); MONO % 5.2 % (3.0-9.0); NEUT # 15.1 10*3/uL (2.3-7.9); NEUT % 86.6 % (47.0-73.0); PLATELET COUNT AUTOMATED 240 10*3/uL (130-400); RED BLOOD COUNT 2.52 10*6/uL (4.10-5.10); RED CELL DISTRI WIDTH 16.4 % (0-14.5); WHITE BLOOD COUNT 17.4 10*3/uL (4.8-10.8)
[2018-11-16 22:19] LABS: ACT PARTIAL THROMBO TIME 31.9 SECONDS (20.0-32.1); INTERNATIONAL NORM RATIO 1.1 (2.0-3.5)
[2018-11-16 23:35] LABS: CREATININE 5.39 mg/dL (0.55-1.02)
[2018-11-16 23:46] LABS: POTASSIUM 6.9 mmol/L (3.5-5.1)
--- NOTE | 2018-11-16 23:48 | NUR ---
CRITICAL LAB K+ 6.9. DR FRANCO AWARE.
[2018-11-17] VITALS (8 sets, daily range): BP systolic 95–120; BP diastolic 50–68
--- NOTE | 2018-11-17 00:50 | NUR ---
A 53, admitted to [facility]U, under the services of MELISSA Patten MD with a diagnosis of CHF, HCAP, HYPERKALEMIA. Chief complaint is SHORTNESS OF BREATH. Patient arrived via stretcher from ER. Monitor applied. Initial assessment completed. Vital signs taken and recorded. MELISSA PATTEN MD notified of admission to the unit. Orders received. See assessment for past medical history, medications and allergies. Patient and/or family oriented to unit. [facility] visitation policy reviewed. Clothing/patient valuable form completed. KRYSTYNA PRINCE A
[2018-11-17] MEDS ORDERED: GLUCOSE33 GM PO (01:52)
[2018-11-17] MEDS ORDERED: GLUCAGON EMERGEN1 M1 IJ (01:55)
--- NOTE | 2018-11-17 02:48 | NUR ---
HOME MEDICATIONS UPDATED FROM [facility] PAPERS.
--- NOTE | 2018-11-17 06:05 | NUR ---
WOUND CARE ORDERS PENDING, AWAITING DR. CORTES/LAUREN TO COME IN THIS AM.
--- NOTE | 2018-11-17 06:34 | NUR ---
DR. SILVER'S ANSWERING SERVICE NOTIFIED OF CONSULT AND DIALYSIS CLINIC ALSO NOTIFIED OF PATIENTS ADM TO HOSPITAL. KRYSTYNA PRINCE RN
--- NOTE | 2018-11-17 07:58 | NUR ---
KARTHIKEYAN MIDDLETON [id number] Please refer to the physician's history and physical for past medical history, comorbid conditions, and allergies. Diagnosis: CHF HCAP HYPERKALEMIA Anatoliy Score: 14,MODERATE RISK WOUND DESCRIPTIONS: Wound Number: 1 Dressing intact to right lower extremity. Wound vac intact per jail and it's is 125mmHg continous. No option for intensity. No strikethrough draiange noted at time of assessment. Patient during last admission follow with podiatry for this area and they were maintaining her dressing changes to the right lower extremity. Wound Number: 2 Location of the wound: left upper chest Type of wound: surgical Thickness: Full Size: 1.0cm x 4.5cm x 1.7cm Tunneling: none Undermining: none Sinus Tract: none Presence of Exudate: Serosanguineous Amount: Moderate Color: Red, yellow Odor: None Periwound Skin Appearance: Erythema Wound edges: approximated Pain (associated with wound): none at time of assessment How does patient state this happened? pt had mediport removed during her last admission on 10/31/[address] Schmid. 2 pink areas noted to right upper thigh site from skin graft. No drainage noted at time of assessment. Surface the patient is resting on: XPRT SKIN PREVENTION RECOMMENDATION: 1. Pressure redistribution support surface as appropriate 2. Elevate heels 3. Remove boots/TEDS every shift and reapply 4. Head of bed 30 degrees as tolerated 5. Assess nutrition and hydration 6. Manage moisture 7. Avoid the use of containment devices while in bed 8. Use absorptive products on surfaces limit layers of linens on bed 9. Turn and reposition every 1-2 hours in bed and every 1 hour in chair as tolerated 10. Weight shifts every 15 minutes while up in chair 11. Offloading with pillows or device to keep heels elevated off bed 12. Monitor skin at least every shift 13. Inspect under medical devices twice a day WOUND TREATMENT RECOMMENDATIONS: Consult podiatry since patient is known to them for right lower extremity wound await dressing change order to right lower extremity once evaluated by podiatry. Cleanse left upper chest with nss and apply sureprep around the wound lightly pack with maxorb rope daily and prn for soiling. Heel raiser pro boot to left lower extremity.
--- NOTE | 2018-11-17 09:11 | NUR ---
DIALYSIS BEING DONE IN ROOM. REMAINS ON HIGH FLOW NASAL CANNULA AT 10 LITERS. PULSE OX 93%. BP 108/60. AFEBRILE. RALES HEARD IN LUNG JEREZ.
--- NOTE | 2018-11-17 09:44 | NUR ---
DR. FREEDMAN AND PALLIATIVE CARE NOTIFIED OF CONSULT
--- NOTE | 2018-11-17 09:49 | NUR ---
DR. CALIX NOTIFIED OF CONSULT
--- NOTE | 2018-11-17 10:34 | NUR ---
left message for Dr. Presley regarding wound care recommendations stated to call wound care cell.
--- NOTE | 2018-11-17 10:59 | NUR ---
Upon discharge recommend patient to follow up for wound care in outpatient setting continue current wound care orders at discharging facility.
--- NOTE | 2018-11-17 11:06 | NUR ---
Spoke with Aviva Chen regarding wound care recommendations.
--- NOTE | 2018-11-17 12:17 | NUR ---
Faxed palliative care order to [facility]
--- NOTE | 2018-11-17 13:00 | NUR ---
Vegetable Picker in to see patient. She is a LTC resident at [facility]. Discussed palliative care and LTAC. She would like to go to LTAC. When provided with a list of facilities she chose [facility]. senior planner notified. She is HD MWF. She is a tashi lift into a wheelchair. O2 @ 10L. Discharge plan undecided at this time.
--- NOTE | 2018-11-17 14:50 | NUR ---
Pt placed on BiPap 14/8 and 50%. Alarms are on and audible. SpO2 100%.
--- NOTE | 2018-11-17 15:20 | NUR ---
Pts FiO2 decreased to 40%. Nurse aware.
[2018-11-17 15:42] LABS: ALBUMIN 2.9 gm/dl (3.1-4.5); CREATININE 2.76 mg/dL (0.55-1.02)
--- NOTE | 2018-11-17 16:03 | NUR ---
Nursing screen received and chart reviewed. Patient is LTC at [facility] dependent for transfers, uses w/c for functional mobility, and is assisted for all ADLs. If patient should have a decline in ADLs, please refer to OT. Pollo Krishnamurthy OTR/L
--- NOTE | 2018-11-17 19:30 | NUR ---
ASSUMED CARE OF PATIENT AT THIS TIME. NO S/S OF DISTRESS. ON BIPAP. CALL LIGHT IN REACH. SIGNIFICANT OTHER AT BEDSIDE.
--- NOTE | 2018-11-17 20:15 | NUR ---
Pt taken off BiPap and placed on 10L HFNC. SpO2. 98%.
--- NOTE | 2018-11-17 21:51 | NUR ---
PT RECEIVED NORCO FOR PAIN IN LEG RATED 7/10.
--- NOTE | 2018-11-17 22:35 | NUR ---
PATIENT PLACED ON BIPAP PER HER REQUEST. TOLERATING WELL. PULSE OX STABLE. NO S/S OF DISTRESS. CALL LIGHT WITHIN REACH.
--- NOTE | 2018-11-17 23:40 | NUR ---
Pt found on Bipap resting comfortably. Bipap settings of 14/8 and an FiO2 of 40%. SpO2 98% Alarms on and audible.
--- NOTE | 2018-11-18 00:09 | NUR ---
NORCO APPEARS TO HAVE BEEN EFFECTIVE. PATIENT DISPLAYS NO S/S OF DISCOMFORT AT THIS TIME. RESTING COMFORTABLY, SLEEPING WITH BIPAP INTACT. CALL LIGHT WITHIN REACH.
--- NOTE | 2018-11-18 01:57 | NUR ---
PATIENT RESTING IN BED. BIPAP INTACT. NO S/S OF DISTRESS. CALL LIGHT IN REACH.
--- NOTE | 2018-11-18 02:26 | NUR ---
24 HR chart check completed.
[2018-11-18 04:00] VITALS: BP 123/53
--- NOTE | 2018-11-18 05:01 | NUR ---
PATIENT REFUSED TO GET BATHED AT THIS TIME.
[2018-11-18 08:00] VITALS: BP 107/74
--- NOTE | 2018-11-18 08:00 | NUR ---
COMPLETE BED AND BATH DONE. DR. CORTES HERE TO SEE PATIENT.
--- NOTE | 2018-11-18 08:05 | NUR ---
PATIENT TAKEN OFF OF BI-PAP, PLACED ON 10 L/M HIGH FLOW NASAL CANNULA.
--- NOTE | 2018-11-18 11:00 | NUR ---
#10 [place] CHEST TUBE PLACED TO RIGHT CHEST WALL BY DR. SILVERMAN. PATIENT TOLERATED PROCEDURE WELL. CHEST TUBE IS TO GRAVITY DRAINAGE.
--- NOTE | 2018-11-18 11:20 | NUR ---
patient has been accepted to [facility] and they have started precert. waiting for auth.
[2018-11-18 12:00] VITALS: BP 115/65
[2018-11-18 13:11] LABS: BODY FLUID WBC 803 /uL
[2018-11-18 13:30] LABS: BASO # 0.1 10*3/uL (0.0-0.1); BASO % 0.6 % (0.0-1.0); EOS # 0.2 10*3/uL (0.0-0.4); HEMATOCRIT 24.6 % (37.0-47.0); HEMOGLOBIN 7.6 g/dl (12.0-16.0); LYMPH # 0.8 10*3/uL (1.3-4.4); LYMPH % 7.5 % (27.0-41.0); MEAN CELL VOLUME 97.2 fl (81.0-99.0); MEAN CORPUSCULAR HGB CONC 30.9 g/dl (33.0-37.0); MEAN PLATELET VOLUME 9.6 fl (9.6-12.3); MONO % 9.1 % (3.0-9.0); NEUT # 8.5 10*3/uL (2.3-7.9); NEUT % 79.3 % (47.0-73.0); PLATELET COUNT AUTOMATED 226 10*3/uL (130-400); RED BLOOD COUNT 2.53 10*6/uL (4.10-5.10); RED CELL DISTRI WIDTH 16.5 % (0-14.5); WHITE BLOOD COUNT 10.7 10*3/uL (4.8-10.8)
[2018-11-18 13:40] LABS: CREATININE 4.2 mg/dL (0.55-1.02); POTASSIUM 4.6 mmol/L (3.5-5.1)
[2018-11-18 13:51] LABS: BF LYMPHOCYTES 16 %; BF MACROPHAGES 25 %; BF MESOTHELIALS 17 %; BF MONOCYTES 4 %; BF NEUTROPHILS 38 %
--- NOTE | 2018-11-18 15:04 | NUR ---
PALLIATIVE CARE HERE TO SEE PATIENT.
[2018-11-18 16:00] VITALS: BP 124/58
--- NOTE | 2018-11-18 17:32 | NUR ---
MEDICATED WITH NORCO FOR COMPLAINTS OF PAIN IN RIGHT FOOT. RATES PAIN A 7 ON A PAIN SCALE OF 1-10
--- NOTE | 2018-11-18 18:51 | NUR ---
VOICES THAT NORCO WAS EFFECTIVE FOR PAIN.
--- NOTE | 2018-11-18 19:30 | NUR ---
ASSUMED CARE OF PATIENT. PATIENT COMPLAINING OF BREAKTHROUGH PAIN FROM CHEST TUBE INSERTION. CALLED DR CORTES. DR CORTES RETURNED CALL AND NEW ORDERS RECEIVED. PATIENT IS TEARFUL AND RESTLESS. NO OBVIOUS SIGNS OF OTHER DISTRESS, BESIDES PAIN. PATIENT'S RESP EASY. DIM LUNGS T/O. O2 SAT 96% ON 8LNC HF. DENIES SOB. CALL LIGHT WITHIN REACH. FAMILY AT BEDSIDE.
[2018-11-18 20:00] VITALS: BP 132/57
--- NOTE | 2018-11-18 20:06 | NUR ---
PATIENT RECEIVED DILAUDID FOR BREAKTHROUGH PAIN IN RIGHT SIDE FROM CHEST TUBE. RATES IT 01/06.
--- NOTE | 2018-11-18 20:57 | NUR ---
DILAUDID EFFECTIVE FOR PAIN.
--- NOTE | 2018-11-18 21:08 | NUR ---
DISCUSSED LIVING WILL AND MPOA INFORMATION WITH SON. PLACED SSC FOR LW/MPOA. PATIENT IS RESTING IN BED. NO S/S OF DISTRESS. CALL LIGHT IN REACH.
--- NOTE | 2018-11-18 22:08 | NUR ---
PATIENT ENCOURAGED TO REPOSITION SELF IN BED. PATIENT ROTATED FROM LEFT SIDE TO BACK. PLACED PATIENT ON BIPAP. NO S/S OF DISTRESS. CALL LIGHT WITHIN REACH.
[2018-11-18 23:42] VITALS: BP 121/50
--- NOTE | 2018-11-19 00:09 | NUR ---
RESPIRATORY IN TO SEE PATIENT AND PROVIDE BREATHING TREATMENT. NO S/S OF DISTRESS. PT STILL PLACED ON BIPAP. VITAL STABLE. RESP EASY. CALL LIGHT IN REACH.
[2018-11-19 03:33] VITALS: BP 126/57
--- NOTE | 2018-11-19 03:40 | NUR ---
24 HR chart check completed.
--- NOTE | 2018-11-19 03:44 | NUR ---
PATIENT RESTING WITH BIPAP INTACT AT THIS TIME. NO S/S OF DISTRESS. RESTING COMFORTABLY IN HER BED. CALL LIGHT WITHIN REACH. VITALS OBTAINED AND STABLE.
[2018-11-19 04:30] LABS: BASO % 0.4 % (0.0-1.0); EOS # 0.3 10*3/uL (0.0-0.4); HEMATOCRIT 23.1 % (37.0-47.0); LYMPH # 0.9 10*3/uL (1.3-4.4); LYMPH % 7.8 % (27.0-41.0); MEAN CELL VOLUME 96.3 fl (81.0-99.0); MEAN CORPUSCULAR HGB 29.2 pg (27.0-31.0); MEAN CORPUSCULAR HGB CONC 30.3 g/dl (33.0-37.0); MEAN PLATELET VOLUME 9.4 fl (9.6-12.3); MONO % 8.8 % (3.0-9.0); NEUT # 8.8 10*3/uL (2.3-7.9); NEUT % 78.6 % (47.0-73.0); PLATELET COUNT AUTOMATED 209 10*3/uL (130-400); RED CELL DISTRI WIDTH 16.4 % (0-14.5); WHITE BLOOD COUNT 11.2 10*3/uL (4.8-10.8)
[2018-11-19 04:55] LABS: CREATININE 4.87 mg/dL (0.55-1.02); POTASSIUM 4.7 mmol/L (3.5-5.1)
--- NOTE | 2018-11-19 05:17 | NUR ---
ASSESSMENT OF PATIENT COMPLETED. PATIENT RESTING WITH BIPAP MASK INTACT. NO S/S OF DISTRESS. CALL LIGHT PLACED WITHIN REACH. LUNGS DIMINISHED. BSX4, NONTEND. NONDIST. NO S/S OF NVD. NO S/S OF PAIN. NO EDEMA LLE NOTED. HEEL PROTECTOR IN PLACE ON LEFT FOOT. PILLOW PLACED BENEATH LEFT KNEE PER PATIENT REQUEST.
--- NOTE | 2018-11-19 05:21 | NUR ---
PATIENT CHEST TUBE INTACT TO RIGHT POSTERIOR SIDE. LINE PATENT AND DRAINING CLEAR/YELLOWISH FLUID INTO WATERSEAL CONTAINER. 80CC REMOVED VIA GRAVITY FROM 2200 TO 0600. PATIENT DENIES PAIN AT THIS TIME AT SITE. DRAINAGE CONTAINER MARKED WITH DRAINAGE AMOUNT AND TIME/DATE. CALL LIGHT WITHIN REACH.
--- NOTE | 2018-11-19 07:45 | NUR ---
DR. CORTES HERE TO SEE PATIENT. DIALYSIS NURSE SETTING UP IN ROOM. TAKEN OFF BI-PAP AND PLACED ON HIGH FLOW NASAL CANNULA 6L. LUNGS CLEAR BILATERALLY. WOUND VAC REMAINS INTACT TO RIGHT FOOT. HEEL RISER ON TO LEFT FOOT. CHEST TUBE REMAINS INTACT TO RIGHT CHEST WALL. DRESSING DRY AND INTACT. RIGHT TESSIO REMAINS INTACT TO CHEST WALL.
[2018-11-19 08:00] VITALS: BP 117/61
--- NOTE | 2018-11-19 11:13 | NUR ---
11:00 PT ASSESSMENT: PT RESTING COMFORTABLY. OFF BIPAP. ON 6 L HFNC. RECEIVING DIALYSIS AT THIS TIME. HR 67 SPO2 98% RR 10 RESPS EASY AND UNLABORED.
[2018-11-19 12:00] VITALS: BP 130/47
--- NOTE | 2018-11-19 12:26 | NUR ---
Discussed discharge planning with Dr. Presley. Transfer to higher level of care and ENT services per Dr. Barr vs waiting on auth for [facility]. Per Dr. Presley waiting on auth for [facility]. environmental planner notified and following.
--- NOTE | 2018-11-19 12:30 | NUR ---
DR. FREEDMAN HERE AND CHANGED WOUND VAC TO RIGHT FOOT
--- NOTE | 2018-11-19 13:12 | NUR ---
MEDICATED WITH ONE NORCO FOR COMPLAINTS OF BILATERAL FEET AND CHEST TUBE SITE PAIN. RATES PAIN A 9 ON A PAIN SCALE OF 1-10
--- NOTE | 2018-11-19 14:00 | NUR ---
VOICES THAT NORCO WAS EFFECTIVE FOR PAIN
--- NOTE | 2018-11-19 14:30 | NUR ---
TAKEN DOWN FOR CT SINUSES VIA CART.
--- NOTE | 2018-11-19 14:57 | NUR ---
Spoke to Dr. Presley regarding patient being denied LTAC. Expedited appeal process started.
[2018-11-19 16:00] VITALS: BP 138/77
--- NOTE | 2018-11-19 16:28 | NUR ---
MEDICATED WITH DILAUDID IV ORDERED FOR COMPLAINTS OF PAIN IN BACK AND BILATERAL FEET. RATES PAIN A 7 ON A PAIN SCALE OF 1-10
--- NOTE | 2018-11-19 19:02 | NUR ---
MEDICATED WITH NORCO FOR COMPLAINTS OF PAIN IN RIGHT SIDED CHEST TUBE SITE. RATES PAIN A 10 ON A PAIN SCALE OF 1-10
[2018-11-19 20:00] VITALS: BP 139/84
--- NOTE | 2018-11-19 20:12 | NUR ---
1999 SL RELIEF OBTAINED FROM [facility] [place]. RESTING IN BED TALKING WITH BOYFRIEND. HOB ELEVATED. SIDE RAILS UP X'S 2. CALL LIGHT IN REACH. ISOLATION MAINTAINED. PULSE OX 94% ON HIGH FLOW NC AT 6L. CHEST TUBE INTACT TO GRAVITY DRAINAGE AND DRAINING SEROUS DRNG. HEP LOCK INTACT LA. NO DISTRESS NOTED.
--- NOTE | 2018-11-19 21:00 | NUR ---
PT ANXIOUS. STATES "I CAN'T BREATHE, TURN MY OXYGEN UP." HANDS SHAKING. GIVEN ROUTINE ATIVAN AND LYRICA. PULSE OX 96% ON 8L. RESPIRATORY THERAPY HERE. PT PLACED BACK ON BIPAP. PULSE OX UP TO 99%. STATES "THIS BIPAP ISN'T WORKING". REASSURANCE GIVEN. PT REPOSITIONED IN BED.
--- NOTE | 2018-11-19 21:20 | NUR ---
2100 MIDLINE NOT WORKING FATIMAH. UNABLE TO FLUSH. REMOVED AND DRSG TO SITE. IV STARTED RH WITH #24 ANGIO AFTER ROUTINE PREP. TOLERATED FAIR. FLUSHES WELL. STERILE DRSG TO SITE. UNSUCCESSFUL IV START ATTEMPT LH.
--- NOTE | 2018-11-19 22:15 | NUR ---
RESTING IN BED WITH EYES CLOSED. APPEARS TO BE SLEEPING. BIPAP INTACT. PULSE OX 100%.
[2018-11-20] VITALS: BP 142/47
--- NOTE | 2018-11-20 00:32 | NUR ---
0030 DILAUDID 0.25MG IV GIVEN FOR C/O'S PAIN AT CHEST TUBE INSERTION SITE. WILL MONITOR.
--- NOTE | 2018-11-20 02:08 | NUR ---
EARLIER PAIN MED EFFECTIVE. REMAINS SLEEPING WITHOUT DISTRESS.
[2018-11-20 04:00] VITALS: BP 128/54
--- NOTE | 2018-11-20 06:06 | NUR ---
REMAINS SLEEPING WITHOUT DISTRESS, CHEST TUBE INTACT. BIPAP INTACT. WOUND VAC INTACT TO R FOOT. DRSG D/I WITH NO DRNG NOTED. CONDITION GUARDED.
[2018-11-20 08:00] VITALS: BP 129/61
--- NOTE | 2018-11-20 09:13 | NUR ---
PATIENT C/O PAIN TO RIGHT LEG AND CHEST TUBE SITE. MEDICATED WITH DILAUDID PER PRN ORDER. WILL CONTINUE TO MONITOR.
[2018-11-20 09:17] LABS: ALBUMIN 2.6 gm/dl (3.1-4.5); CREATININE 3.61 mg/dL (0.55-1.02); POTASSIUM 4.5 mmol/L (3.5-5.1)
[2018-11-20 09:18] LABS: PHOSPHOROUS 5.7 mg/dL (2.5-4.9)
--- NOTE | 2018-11-20 11:00 | NUR ---
Chief Creative Officer in to see patient. No new needs or request at this time. [facility] appeal in process. Discharge plan undecided at this time.
[2018-11-20 12:00] VITALS: BP 118/51
--- NOTE | 2018-11-20 13:45 | NUR ---
PT SLEEPING. NOT AWAKENED TO BE PUT ON BIPAP AT THIS TIME. NO DISTRESS WITH BREATHING SEEN AT THIS TIME. RN AWARE.
[2018-11-20 16:00] VITALS: BP 131/55
--- NOTE | 2018-11-20 16:56 | NUR ---
Nursing screen received. Pt has wound vac to foot, chest tube and is tashi dependent from [facility]. No PT warranted at this time. If patient shows a decline or change in functional status that would warrant PT, please advise. Thank you for this screen, Erika Romero, PT
[2018-11-20 20:00] VITALS: BP 132/58
[2018-11-21] VITALS: BP 139/69
--- NOTE | 2018-11-21 01:45 | NUR ---
MEDICATED WITH DILAUDID PER PRN ORDER FOR C/O PIN.
--- NOTE | 2018-11-21 02:30 | NUR ---
DILAUDID EFFECTIVE FOR PAIN.
[2018-11-21 04:00] VITALS: BP 130/68
[2018-11-21 08:00] VITALS: BP 154/76
[2018-11-21] MEDS ORDERED: GENTACIDIN5 ML OT (08:12)
--- NOTE | 2018-11-21 08:17 | NUR ---
OPERATOR CAVITY PUMP [facility]ENIE NOTIFIED OF TRANSFER IN PROCESS ORDER.
--- NOTE | 2018-11-21 08:24 | NUR ---
Spoke to Graciela at [facility]. Patient has been approved for LTAC. equipment planner and Dr. Presley notified.
--- NOTE | 2018-11-21 08:25 | NUR ---
approval obtained for [facility].
--- NOTE | 2018-11-21 09:00 | NUR ---
Cable Maker in to see patient. She is currently on bipap and receiving dialysis at her bedside. She has been approved to go to [facility]. liaison planner following.
[2018-11-21 12:00] VITALS: BP 131/55
--- NOTE | 2018-11-21 12:14 | NUR ---
patient approved for [facility] LT[facility]; Patient is ok to go on Saturday11/22/18 since she cannot go on a day of dialysis.
--- NOTE | 2018-11-21 14:04 | NUR ---
PT COMPLAINING THAT SHE IS SOB, STATES SHE CAN'T FEEL HER OXYGEN. PULSE OX CHECKED: 99% ON 6L HIGH FLOW NC. PT REQUESTING FOR IT TO BE TURNED UP. EXPLAINED RATIONALE TO WHY IT DOESN'T NEED TO BE TURNED UP, IT WILL ONLY DO MORE HARM THAN GOOD AND SHE IS OXYGENATING PROPERLY, SHE MAY GO ON BIPAP IF SHE WOULD LIKE. STATES SHE WOULD LIKE TO GO ON BIPAP. RESPIRATORY INFORMED.
--- NOTE | 2018-11-21 14:38 | NUR ---
14:15 PT TRANSFERRED FROM ICU TO 425. UPON ARRIVAL TO 425, PT PLACED ON BIPAP PER PT REQUEST. RESPS REGULAR AND UNLABORED
--- NOTE | 2018-11-21 15:15 | NUR ---
DR SILVERMAN HERE AT THIS TIME, RIGHT SIDED CHEST TUBE PULLED AT THIS TIME. PT TOLERATED WELL. PRESSURE DRESSING APPLIED.
[2018-11-21 16:00] VITALS: BP 146/61
[2018-11-21] MEDS ORDERED: MEROPENEM-500 MG/50 IV (16:00)
[2018-11-21 20:00] VITALS: BP 137/67
--- NOTE | 2018-11-21 20:13 | NUR ---
PATIENT MEDICATED WITH DILAUDIS PER DRS ORDERS FOR COMPLAINTS OF PAIN TO LEGS AND FEET. RN WILL MONITOR FOR EFFECTIVENESS
[2018-11-22] VITALS: BP 151/65
[2018-11-22 06:46] LABS: BASO # 0.1 10*3/uL (0.0-0.1); BASO % 0.5 % (0.0-1.0); EOS # 0.5 10*3/uL (0.0-0.4); EOS % 4.8 % (1.0-4.0); HEMATOCRIT 25.5 % (37.0-47.0); HEMOGLOBIN 7.8 g/dl (12.0-16.0); LYMPH # 0.6 10*3/uL (1.3-4.4); LYMPH % 6.7 % (27.0-41.0); MEAN CELL VOLUME 96.2 fl (81.0-99.0); MEAN CORPUSCULAR HGB 29.4 pg (27.0-31.0); MEAN CORPUSCULAR HGB CONC 30.6 g/dl (33.0-37.0); MEAN PLATELET VOLUME 9.9 fl (9.6-12.3); MONO % 10.9 % (3.0-9.0); NEUT # 7.3 10*3/uL (2.3-7.9); NEUT % 76.1 % (47.0-73.0); PLATELET COUNT AUTOMATED 244 10*3/uL (130-400); RED BLOOD COUNT 2.65 10*6/uL (4.10-5.10); RED CELL DISTRI WIDTH 16.1 % (0-14.5); WHITE BLOOD COUNT 9.6 10*3/uL (4.8-10.8)
[2018-11-22 07:13] LABS: CREATININE 3.66 mg/dL (0.55-1.02); PHOSPHOROUS 6.3 mg/dL (2.5-4.9); POTASSIUM 4.7 mmol/L (3.5-5.1)
[2018-11-22 08:00] VITALS: BP 128/66
--- NOTE | 2018-11-22 10:20 | NUR ---
PT REFUSING TO ALLOW PHOTOS OR REMOVAL OF DRESSING. ATTEMPTED TO NOTIFY PODIATRY, NO ANSWER,DENISA LEFT TO RETURN CALL. NOTIFIED DR CORTES.ORDER RECIEVED TO LEAVE DRESSING INTACT AND PT D/C'D TO [facility] PER
--- NOTE | 2018-11-22 10:55 | NUR ---
REPORT CALLED TO MARIYA HUDSON AT [facility].AWAITING [facility] TO ARRIVE FOR TRANSPORT.
--- NOTE | 2018-11-22 11:15 | NUR ---
DR RUBI ROUNDED.PER DR RUBI PT DRESSING TO REMAIN INTACT FOR TRANSPORT TO [facility].
--- NOTE | 2018-11-22 11:25 | NUR ---
Discharge instructions reviewed with patient/family. Patient receptive and verbalizes understanding. Follow-up care arranged. Written instructions given to patient/family. ADRIANA VILA
== END 2018-11-22 11:25 | DRG 177 ==
LOC: ED 21:09 → EDHOLD 11-17 00:02 → ICCU 11-17 00:02 → 4E 11-21 13:21
PROVIDERS: Internal Medicine; Student in an Organized Health Care Education/Training Program; ADMIT Internal Medicine
PROC: 5A09357 Assistance with Respiratory Ventilation, Less than 24 Consecutive Hours, Continuous Positive Airway Pressure (ICD-10-PCS; 2018-11-17)
PROC: 0W9930Z Drainage of Right Pleural Cavity with Drainage Device, Percutaneous Approach (ICD-10-PCS; principal; 2018-11-18)
PROC: 5A09357 Assistance with Respiratory Ventilation, Less than 24 Consecutive Hours, Continuous Positive Airway Pressure (ICD-10-PCS; 2018-11-18)
PROC: 5A09357 Assistance with Respiratory Ventilation, Less than 24 Consecutive Hours, Continuous Positive Airway Pressure (ICD-10-PCS; 2018-11-19)
PROC: 5A09357 Assistance with Respiratory Ventilation, Less than 24 Consecutive Hours, Continuous Positive Airway Pressure (ICD-10-PCS; 2018-11-20)
PROC: 5A09357 Assistance with Respiratory Ventilation, Less than 24 Consecutive Hours, Continuous Positive Airway Pressure (ICD-10-PCS; 2018-11-21)
PROC: 5A09357 Assistance with Respiratory Ventilation, Less than 24 Consecutive Hours, Continuous Positive Airway Pressure (ICD-10-PCS; 2018-11-22)
DX: J69.0 Pneumonitis due to inhalation of food and vomit (principal); J96.21 Acute and chronic respiratory failure with hypoxia; N18.6 End stage renal disease; M86.8X6 Other osteomyelitis, lower leg; I13.2 Hypertensive heart and chronic kidney disease with heart failure and with stage 5 chronic kidney disease, or end stage renal disease; N17.9 Acute kidney failure, unspecified; L97.402 Non-pressure chronic ulcer of unspecified heel and midfoot with fat layer exposed; I50.22 Chronic systolic (congestive) heart failure; E44.0 Moderate protein-calorie malnutrition; B95.2 Enterococcus as the cause of diseases classified elsewhere; Z16.21 Resistance to vancomycin; J44.9 Chronic obstructive pulmonary disease, unspecified; E11.40 Type 2 diabetes mellitus with diabetic neuropathy, unspecified; E78.2 Mixed hyperlipidemia; F41.1 Generalized anxiety disorder; H70.91 Unspecified mastoiditis, right ear; E11.22 Type 2 diabetes mellitus with diabetic chronic kidney disease; G89.4 Chronic pain syndrome; F32.9 Major depressive disorder, single episode, unspecified; E78.5 Hyperlipidemia, unspecified; E66.01 Morbid (severe) obesity due to excess calories; M47.897 Other spondylosis, lumbosacral region; E11.42 Type 2 diabetes mellitus with diabetic polyneuropathy; F17.210 Nicotine dependence, cigarettes, uncomplicated; G47.33 Obstructive sleep apnea (adult) (pediatric); G25.81 Restless legs syndrome; E87.5 Hyperkalemia; E03.9 Hypothyroidism, unspecified; R62.7 Adult failure to thrive; M17.11 Unilateral primary osteoarthritis, right knee; H70.90 Unspecified mastoiditis, unspecified ear; E11.621 Type 2 diabetes mellitus with foot ulcer; Z99.81 Dependence on supplemental oxygen; Z91.15 Patient's noncompliance with renal dialysis; Z79.4 Long term (current) use of insulin; Z98.891 History of uterine scar from previous surgery; Z88.9 Allergy status to unspecified drugs, medicaments and biological substances; Z91.041 Radiographic dye allergy status; Z91.013 Allergy to seafood; Z89.439 Acquired absence of unspecified foot; Z90.49 Acquired absence of other specified parts of digestive tract; Z98.51 Tubal ligation status; Z83.3 Family history of diabetes mellitus; Z68.35 Body mass index [BMI] 35.0-35.9, adult

== ENCOUNTER 2019-01-04 21:59 | Inpatient (IN) | payer MEDICARE ==
[~2019-01-04] VITALS: Ht 162.5 cm; Wt 96.3 kg
[~2019-01-04 21:59] MED LIST changes: +GENTACIDIN5 ML OT; +GLUCAGON EMERGEN1 M1 IJ; +MEROPENEM-500 MG/50 IV
[2019-01-04 22:00] VITALS: BP 100/50
[2019-01-04 22:42] VITALS: BP 101/72
[2019-01-04 22:53] LABS: BASO # 0.1 10*3/uL (0.0-0.1); BASO % 0.4 % (0.0-1.0); EOS # 0.3 10*3/uL (0.0-0.4); EOS % 2.3 % (1.0-4.0); HEMATOCRIT 26.1 % (37.0-47.0); HEMOGLOBIN 8.2 g/dl (12.0-16.0); LYMPH # 1.2 10*3/uL (1.3-4.4); LYMPH % 10.2 % (27.0-41.0); MEAN CELL VOLUME 93.9 fl (81.0-99.0); MEAN CORPUSCULAR HGB 29.5 pg (27.0-31.0); MEAN CORPUSCULAR HGB CONC 31.4 g/dl (33.0-37.0); MEAN PLATELET VOLUME 10.4 fl (9.6-12.3); MONO % 8.2 % (3.0-9.0); NEUT # 9.2 10*3/uL (2.3-7.9); NEUT % 78.2 % (47.0-73.0); NUCLEATED RED BLOOD CELL 0.3 % (0.0-0.0); PLATELET COUNT AUTOMATED 251 10*3/uL (130-400); RED BLOOD COUNT 2.78 10*6/uL (4.10-5.10); RED CELL DISTRI WIDTH 16.6 % (0-14.5); WHITE BLOOD COUNT 11.8 10*3/uL (4.8-10.8)
[2019-01-04 23:04] LABS: ACT PARTIAL THROMBO TIME 28.9 SECONDS (20.0-32.1); INTERNATIONAL NORM RATIO 1.1 (2.0-3.5)
[2019-01-04 23:11] LABS: ALBUMIN 3.2 gm/dl (3.1-4.5); ALKALINE PHOSPHATASE 400 U/L (45-117); CHLORIDE 97 mmol/L (98-107); CREATININE 6.84 mg/dL (0.55-1.02); SGOT/AST 13 IU/L (3-35); SGPT/ALT 31 U/L (12-78); SODIUM 127 mmol/L (136-145); TOTAL PROTEIN 7.6 gm/dL (6.4-8.2)
[2019-01-04 23:17] LABS: BUN 67 mg/dl (7-24)
[2019-01-04 23:19] LABS: POTASSIUM 7.6 mmol/L (3.5-5.1); TROPONIN I < 0.015 ng/ml (<0.045)
--- NOTE | 2019-01-04 23:19 | NUR ---
CRITICAL LAB RESULT RECEIVED AT THIS TIME. OSCAR ZHU NOTIFIED.
[2019-01-05] VITALS: BP 113/44
--- NOTE | 2019-01-05 01:10 | NUR ---
A 53, admitted to 5E, under the services of Dr. LAUREN BERNAL,MAIA Gould with a diagnosis of HYPONATREMIA,HCAP BILATERAL PNEUMONIA AND END STAGE RENAL. Chief complaint is SHORTNESS OF BREATH. Patient arrived via bed from ER. Monitor applied. Initial assessment completed. Vital signs taken and recorded. DR. LAUREN BERNAL,MAIA Gould notified of admission to the unit. Orders received. See assessment for past medical history, medications and allergies. Patient and/or family oriented to unit. [facility] visitation policy reviewed. Clothing/patient valuable form completed. OKSANA SANDOVAL
--- NOTE | 2019-01-05 01:10 | NUR ---
PATIENT HAS ANABELLE BOOT TO RIGHT LOWER EXTREMITY, WELL A WALKING BOOT, PATIENT REFUSED TO REMOVE EITHER, PER PATIENT SHE FOLLOWS UP WITH PODIATRY ON WEDNESDAYS.
[2019-01-05 01:25] VITALS: BP 100/44
[2019-01-05] MEDS ORDERED: ALBUTEROL0.63 MG/3 INH (02:17)
[2019-01-05] MEDS ORDERED: BROVANA15 MCG/2 M INH (02:19)
[2019-01-05] MEDS ORDERED: COREG12.5 M1 PO (02:24)
--- NOTE | 2019-01-05 02:30 | NUR ---
CALL PLACED TO DR. AGUILAR, ORDERS RECIEVED FOR CONSULTS TO "STAT", FIFI ALTMAN, HE REQUESTS DR CALIX ORDER ATBS AND PODIATRY FOR RLE WOUND. ALSO ORDERED CONTINUING PATIENTS DILAUDID, BP, HUMULOG PRN PER CUSTODIAL MEDICATION LIST, OKAY FOR RENAL DIET.
[2019-01-05] MEDS ORDERED: Synthroid,Levo50 MCG PO (02:41)
[2019-01-05] MEDS ORDERED: HEPARIN SO5000 UNIT4 SC (02:45)
[2019-01-05] MEDS ORDERED: INSULIN LI100 UNIT/1 SQ (02:48)
[2019-01-05] MEDS ORDERED: HYDROMORPHONE2 MG PO (02:58)
[2019-01-05] MEDS ORDERED: HYDROXYZINE HCL25 MG PO (03:00)
--- NOTE | 2019-01-05 04:30 | NUR ---
PLACED PATIENT ON BIPAP 14/8, 40% O2, HR 66, SPO2 94%, RR 19
--- NOTE | 2019-01-05 05:00 | NUR ---
Patient sleeping. patient tolerating BIPAP well, Siderails up 2. [place] on. OKSANA SANDOVAL
--- NOTE | 2019-01-05 07:27 | NUR ---
CALL PLACED TO DR. SOTO, SPOKE WITH RUFINA, ADVISED THAT I HAD A STAT CONSULT FOR DR. SOTO R/T HER DIALYSIS. ALSO CALLED DR. CALIX, ADVISED HIM OF CONSULT AND THAT DR. AGUILAR WANTED HIM TO DOSE ANTIBIOTICS, ALSO CALLED PODIATRY SPOKE WITH DR. ALDRIDGE ADVISED OF CONSULT AND THAT PATIENT SEES PODIATRY FOR WOUND RLE. CALL PLACED TO [facility] TO ADVISE THAT PATIENT WAS ADMITTED, HER DIALYSIS DAYS ARE , AND SATURDAY.
--- NOTE | 2019-01-05 07:55 | NUR ---
SPOKE WITH DR SILVER ON PHONE REGARDING PATIENT'S CONSULT. NEW ORDERS RECEIVED FOR STAT RENAL PANEL, I GRAM OF CALCIUM GLUCONATE. IF POTASSIUM IS GREATER THAN 6.5, GIVE TEN OF INSULIN HUMULIN R, GIVE D50 WITH INSULIN, GIVE 30 GRAMS OF KAYEXALATE. GIVE ALBUTEROL NEBULIZER NOW. WILL NOTIFY PATIENT OF NEW ORDERS. DR SILVER ALSO STATES THAT HE WILL NOTIFY DCI THAT PATIENT IS HERE AND WILL NEED DIALYSIS TREATMENT.
[2019-01-05 08:21] LABS: ALBUMIN 3.3 gm/dl (3.1-4.5); CREATININE 7.1 mg/dL (0.55-1.02)
[2019-01-05 08:28] LABS: POTASSIUM 7.8 mmol/L (3.5-5.1)
[2019-01-05 08:53] LABS: PHOSPHOROUS 9.7 mg/dL (2.5-4.9)
--- NOTE | 2019-01-05 10:06 | NUR ---
KARTHIKEYAN MIDDLETON [id number] Please refer to the physician's history and physical for past medical history, comorbid conditions, and allergies. Diagnosis: HYPONATREMIA HCAP BILATERAL PNUMONIA END STAGE Anaotliy Score: 14,MODERATE RISK WOUND DESCRIPTIONS: Dressing intact to right lower leg. No open areas noted at time of assessment. No strikethrough drainage noted at time of assessment. Black boot intact to right lower extremity. Patient follows with podiatry at senior living. Buttocks is red and blanchable at time of assessment. No open areas noted at time of assessment. No drainage noted at time of asessment. Bilateral groin red satelitte areas noted. Musty odor noted at time of assessment. Abdomen has several ecchymotic areas noted at time of assessment. Intact scabs noted to left knee, left hand and right hand. No draiange noted at time of assessment. Surface the patient is resting on: Position Pro SKIN PREVENTION RECOMMENDATION: 1. Pressure redistribution support surface as appropriate 2. Elevate heels 3. Remove boots/TEDS every shift and reapply 4. Head of bed 30 degrees as tolerated 5. Assess nutrition and hydration 6. Manage moisture 7. Avoid the use of containment devices while in bed 8. Use absorptive products on surfaces limit layers of linens on bed 9. Turn and reposition every 1-2 hours in bed and every 1 hour in chair as tolerated 10. Weight shifts every 15 minutes while up in chair 11. Offloading with pillows or device to keep heels elevated off bed 12. Monitor skin at least every shift 13. Inspect under medical devices twice a day WOUND TREATMENT RECOMMENDATIONS: Consult podiatry for RLE since patient follows outside of here. Cleanse bilateral groins with soap and water pat areas dry then apply nystatin powder every 8 hours. Cleanse buttocks with soap and water and apply hydraguard every shift and prn for soiling. Heel raiser pro boots to left foot while in bed. Wheelchair cushion when oob.
--- NOTE | 2019-01-05 10:20 | NUR ---
AM MEDICATIONS HELD AT THIS TIME DUE TO PATIENT TO HAVE DIALYSIS SOMETIME THIS MORNING. WILL MEDICATE PT AFTER DIALYSIS. WILL MONITOR PATIENT THROUGHOUT THE MORNING.
--- NOTE | 2019-01-05 10:27 | NUR ---
PT GIVEN 10 UNITS VIA IV PUSH PER ORDERS GIVEN BY DR SILVER FOR A POTASSIUM LEVEL OF 7.8. BLOOD SUGAR AT THIS TIME IS 214. WILL CONTINUE TO MONITOR. CALL LIGHT IN REACH.
--- NOTE | 2019-01-05 10:40 | NUR ---
CRITICAL POTASSIUM OF 7.8 AND CRITICAL PHOSPHORUS LEVEL OF 9.7 CALLED TO THIS NURSE FROM LAB. DR SILVER NOTIFIED OF FINDINGS.
[2019-01-05 11:16] LABS: ABG HCO3 20.9 mmol/l (22-26); ABG O2 SATURATION 94.1 % (95-97); ARTERIAL BLOOD GAS PCO2 48.5 mmHg (35-45); ARTERIAL BLOOD GAS PH 7.256 (7.35-7.45); ARTERIAL BLOOD GAS PO2 83.7 mmHg (80-90)
[2019-01-05 11:19] LABS: ABG BASE EXCESS -5.7 mmol/L (-2.0-2.0)
--- NOTE | 2019-01-05 13:25 | NUR ---
SPEECH PATHOLOGY Nursing screen completed. Per chart review, speech pathology services do not appear indicated at this time. This dept. will remain available should future needs arise. KAILEY WONG MSCCC-REFORMATORY ATTENDANT
--- NOTE | 2019-01-05 18:00 | NUR ---
PT RETURNS FROM DIALYSIS AT THIS TIME. PT IS ALERT ORIENTED AND PLEASANT. NO NEW ABNORMALITIES NOTED. NO COMPLAINTS VOICED. ALL NEEDS ARE MET. VITALS WNL. CALL LIGHT IN REACH.
[2019-01-05 18:37] VITALS: BP 162/70
--- NOTE | 2019-01-05 19:35 | NUR ---
BED SIDE REPORT RECEIVED FROM DAYLIGHT NURSE. PT IS ALERT AND ORIENTED. PT STATES SHE "DOESNT FEEL WELL". VITALS TAKEN AT THIS TIME. VITALS WNL. PT VOICES NO OTHER COMPLAINTS AT THIS TIME. CALL LIGHT IN REACH.
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
[2019-01-05 20:00] VITALS: BP 144/70
[2019-01-06] VITALS: BP 133/62
--- NOTE | 2019-01-06 08:45 | NUR ---
DILAUDID GIVEN FOR C/O GENDERALIZED PAIN. MED DID NOT SCAN. WILL MONITOR.
--- NOTE | 2019-01-06 09:50 | NUR ---
DILAUDID EFFECTIVE PER PT.
[2019-01-06 10:18] LABS: CREATININE 4.7 mg/dL (0.55-1.02); POTASSIUM 4.6 mmol/L (3.5-5.1)
[2019-01-06 12:00] VITALS: BP 96/52
--- NOTE | 2019-01-06 14:24 | NUR ---
Conference Services Director in to see patient. She is a LTC resident at [facility] and plans to return there upon discharge. She is HD MWF. She is a tashi lift into a wheelchair. O2 @ 5L. sheet metal production worker following.
[2019-01-06 16:00] VITALS: BP 140/70
--- NOTE | 2019-01-06 18:55 | NUR ---
DILUADID GIVEN FOR C/O GENERALIZED DISCOMFORT. WILL MONITOR.
--- NOTE | 2019-01-06 19:52 | NUR ---
EMEIS NOTED IN BASIN AND PATIENT C/O NAUSEA. DR. AGUILAR CONTACTED AND SUNG REQUESTED. SEE NEW ORDERS.
[2019-01-06 20:00] VITALS: BP 127/57
--- NOTE | 2019-01-06 20:24 | NUR ---
PRN ZOFRAN GIVEN FOR C/O NAUSEA. PATIENT IS EATING CHOCOLATE MILKSHAKE AT THIS TIME. CALL LIGHT IS WITHIN REACH, WILL MONITOR EFFECT.
[2019-01-07] VITALS: BP 132/62
--- NOTE | 2019-01-07 05:40 | NUR ---
Upon discharge recommend patient to follow up for wound care in outpatient setting continue current wound care orders at discharging facility.
[2019-01-07 06:11] LABS: BASO % 0.4 % (0.0-1.0); EOS # 0.1 10*3/uL (0.0-0.4); EOS % 1.2 % (1.0-4.0); HEMATOCRIT 26.7 % (37.0-47.0); HEMOGLOBIN 8.3 g/dl (12.0-16.0); LYMPH # 1.5 10*3/uL (1.3-4.4); LYMPH % 14.7 % (27.0-41.0); MEAN CELL VOLUME 93.4 fl (81.0-99.0); MEAN CORPUSCULAR HGB CONC 31.1 g/dl (33.0-37.0); MEAN PLATELET VOLUME 10.3 fl (9.6-12.3); MONO % 10.1 % (3.0-9.0); NEUT # 7.3 10*3/uL (2.3-7.9); NEUT % 72.8 % (47.0-73.0); PLATELET COUNT AUTOMATED 279 10*3/uL (130-400); RED BLOOD COUNT 2.86 10*6/uL (4.10-5.10); RED CELL DISTRI WIDTH 17.2 % (0-14.5)
[2019-01-07 06:25] LABS: POTASSIUM 4.4 mmol/L (3.5-5.1)
[2019-01-07 06:27] LABS: CREATININE 4.09 mg/dL (0.55-1.02)
--- NOTE | 2019-01-07 08:04 | NUR ---
Faxed updates to [facility]. -NANCY Rodriguez
[2019-01-07 12:00] VITALS: BP 126/86
--- NOTE | 2019-01-07 12:00 | NUR ---
DILAUDID GIVEN FOR C/O GENERALIZED DISCOMFORT. WILL MONITOR.
--- NOTE | 2019-01-07 12:53 | NUR ---
NOTIFIED DR. AGUILAR OF CRITICAL LAB, NEW ORDERS GIVEN.
--- NOTE | 2019-01-07 12:54 | NUR ---
ID NOTIFED OF CONSULT.
--- NOTE | 2019-01-07 13:00 | NUR ---
DILAUDID EFFECTIVE PER PT.
--- NOTE | 2019-01-07 14:14 | NUR ---
APRON WORKER faxed updates to [facility]. -NANCY Rodriguez
--- NOTE | 2019-01-07 14:17 | NUR ---
Remelt Operator in to see patient. No new needs or request at this time. She is sitting up in her bed visiting with family/friends at bedside. When medically stable she will be discharged to [facility] where she is a LTC resident. dyehouse worker following.
[2019-01-07 16:00] VITALS: BP 105/53
[2019-01-07 20:00] VITALS: BP 132/62
--- NOTE | 2019-01-07 22:18 | NUR ---
PRN DILAUDID GIVEN FOR PT COMPLAINTS OF 8/10 PAIN IN HER LEG AND "ALL OVER". DRESSING CHANGED TO LOWER EXTREMITY AT THIS TIME. CALL LIGHT WITHIN REACH, CASA MOLINA
--- NOTE | 2019-01-07 23:30 | NUR ---
PATIENT SCREAMING IN ROOM FOR NURSE. WHEN ENTERING ROOM PATIENT STATES THAT SHE DOESN'T KNOW WHAT SHE WANTS. OFFERED TO SIT PATIENT UP IN RECLINER. SHE STATED SHE WOULD TRY IT FOR A LITTLE BIT.
[2019-01-08] VITALS: BP 139/69
--- NOTE | 2019-01-08 00:11 | NUR ---
PATIENT AGAIN SCREAMING IN ROOM. STATED THAT SHE WANTED TO GO BACK TO BED AND PUT BACK ON HER BIPAP
--- NOTE | 2019-01-08 05:00 | NUR ---
PATIENT CONTINUALLY SCREAMING OUT, WHEN ASKED WHAT SHE NEEDS SHE STATES SHE DOESN'TKNOW. PATIENT CONSTANTLY SETTING OFF BED ALARM AND LAYING BACK DOWN AND TRYING TO GET BACK UP AGAIN. STATES SHE DOESN'T KNOW WHAT SHE NEEDS.
--- NOTE | 2019-01-08 06:22 | NUR ---
PATIENT REFUSED BATH THIS MORNING
--- NOTE | 2019-01-08 07:49 | NUR ---
PATIENT REFUSED TO LAY FLAT FOR DAILY WEIGHT
--- NOTE | 2019-01-08 11:40 | NUR ---
BOILERMAKER WELDER notified of patient discharge. BOILERMAKER WELDER spoke with RN. BOILERMAKER WELDER reached out to [facility] for transportation. They stated they could be her in 15-20 minutes. BOILERMAKER WELDER notified the RN. BOILERMAKER WELDER reached out to next of kin and left message for a return call. -NANCY Rodriguez
--- NOTE | 2019-01-08 12:04 | NUR ---
ATTEMPTED TO CALL AND GIVE REPORT TO JOCELYNE KAUR AT THIS TIME. PHONE RINGING BUSY AND UNABLE TO GET THROUGH. WILL TRY BACK
--- NOTE | 2019-01-08 12:05 | NUR ---
PATIENT AGITATED AND REFUSING WOUND PHOTOS.
--- NOTE | 2019-01-08 12:08 | NUR ---
Discharge instructions reviewed with patient. Patient receptive and verbalizes understanding. Follow-up care arranged. Written instructions given to AMBULANCE AND EXPLAINED TO PATIENT. IV DISCONTINUED. ELECTRICAL EQUIPMENT TESTER REMOVED. MIKA MARIN
[2019-01-21] MEDS ORDERED: ULTRAM50 MG PO (09:33)
[2019-01-21] MEDS ORDERED: DOXYCYCLINE100 M3 PO (09:34)
[2019-01-21] MEDS ORDERED: Lovenox40 MG/0.4 SQ (09:35)
== END 2019-01-08 12:08 | disposition other institution (70) | DRG 291 ==
LOC: ED 21:59 → 5E 01-05 00:05 → EDHOLD 01-05 00:05 → 5E 01-05 00:31
PROVIDERS: Internal Medicine; Internal Medicine Nephrology; Physician Assistant; ADMIT Internal Medicine
PROC: 5A09357 Assistance with Respiratory Ventilation, Less than 24 Consecutive Hours, Continuous Positive Airway Pressure (ICD-10-PCS; principal; 2019-01-05)
PROC: 5A1D70Z Performance of Urinary Filtration, Intermittent, Less than 6 Hours Per Day (ICD-10-PCS; principal; 2019-01-05)
PROC: 5A1D70Z Performance of Urinary Filtration, Intermittent, Less than 6 Hours Per Day (ICD-10-PCS; 2019-01-06)
PROC: 5A09357 Assistance with Respiratory Ventilation, Less than 24 Consecutive Hours, Continuous Positive Airway Pressure (ICD-10-PCS; 2019-01-06)
PROC: 5A1D70Z Performance of Urinary Filtration, Intermittent, Less than 6 Hours Per Day (ICD-10-PCS; 2019-01-07)
PROC: 5A09357 Assistance with Respiratory Ventilation, Less than 24 Consecutive Hours, Continuous Positive Airway Pressure (ICD-10-PCS; 2019-01-08)
DX: I13.2 Hypertensive heart and chronic kidney disease with heart failure and with stage 5 chronic kidney disease, or end stage renal disease (principal); J18.1 Lobar pneumonia, unspecified organism; N18.6 End stage renal disease; I50.43 Acute on chronic combined systolic (congestive) and diastolic (congestive) heart failure; J96.21 Acute and chronic respiratory failure with hypoxia; J44.1 Chronic obstructive pulmonary disease with (acute) exacerbation; E87.1 Hypo-osmolality and hyponatremia; N17.9 Acute kidney failure, unspecified; L97.402 Non-pressure chronic ulcer of unspecified heel and midfoot with fat layer exposed; E44.0 Moderate protein-calorie malnutrition; M86.8X7 Other osteomyelitis, ankle and foot; F33.1 Major depressive disorder, recurrent, moderate; J44.0 Chronic obstructive pulmonary disease with (acute) lower respiratory infection; J98.11 Atelectasis; E11.22 Type 2 diabetes mellitus with diabetic chronic kidney disease; E87.5 Hyperkalemia; R62.7 Adult failure to thrive; E11.43 Type 2 diabetes mellitus with diabetic autonomic (poly)neuropathy; E11.42 Type 2 diabetes mellitus with diabetic polyneuropathy; K31.84 Gastroparesis; E11.69 Type 2 diabetes mellitus with other specified complication; G89.29 Other chronic pain; G25.81 Restless legs syndrome; G47.33 Obstructive sleep apnea (adult) (pediatric); E11.51 Type 2 diabetes mellitus with diabetic peripheral angiopathy without gangrene; F17.210 Nicotine dependence, cigarettes, uncomplicated; E78.2 Mixed hyperlipidemia; B96.89 Other specified bacterial agents as the cause of diseases classified elsewhere; E11.621 Type 2 diabetes mellitus with foot ulcer; E66.01 Morbid (severe) obesity due to excess calories; D64.9 Anemia, unspecified; F41.1 Generalized anxiety disorder; E03.9 Hypothyroidism, unspecified; B36.9 Superficial mycosis, unspecified; K59.09 Other constipation; Z99.2 Dependence on renal dialysis; Z99.81 Dependence on supplemental oxygen; Z88.1 Allergy status to other antibiotic agents; Z91.013 Allergy to seafood; Z91.09 Other allergy status, other than to drugs and biological substances; Z98.891 History of uterine scar from previous surgery; Z90.49 Acquired absence of other specified parts of digestive tract; Z98.51 Tubal ligation status; Z80.0 Family history of malignant neoplasm of digestive organs; Z83.3 Family history of diabetes mellitus; Z82.49 Family history of ischemic heart disease and other diseases of the circulatory system; Z68.36 Body mass index [BMI] 36.0-36.9, adult

== ENCOUNTER → 2019-01-21 | Day surgery (SDC) | payer MEDICARE ==
[~2019-01-21] VITALS: Ht 162.5 cm; Wt 95.7 kg
[~2019-01-21] MED LIST changes: +ALBUTEROL0.63 MG/3 INH; +BROVANA15 MCG/2 M INH; +CLINDAMYCIN HC300 MG PO; +HEPARIN SO5000 UNIT4 SC; +HYDROMORPHONE2 MG PO; +HYDROXYZINE HCL25 MG PO; +INSULIN LI100 UNIT/1 SQ; +Lovenox40 MG/0.4 SQ; +Synthroid,Levo50 MCG PO
--- NOTE | ~2019-01-21 | WRIGHTHP ---
[place], [place] PATIENT HISTORY AND PHYSICAL EXAM NAME: [id number] UN[facility] #: [id number] ROOM: DOCTOR: ERIKA MOSES DPM BIRTHDATE: [birth year] DOS: 01/21/2019 LOWER EXTREMITY PHYSICAL EXAMINATION: VASCULAR: She has intact pedal pulses of the right. NEUROLOGIC: She has complete loss of protective sensation on the right. DERMATOLOGIC: She has an open wound on the posterior aspect of right ankle and also the right calcaneus measuring 9.0 x 3.1 cm. No cardinal signs of infection, drainage, undermining tunneling noted on the right posterior wound of the right heel. MUSCULOSKELETAL: She has some instability of her ankle. ORTHOPEDIC EXAM: Partial loss on right from osteomyelitis. ERIKA MOSES DPM CM:HISPHYS:PATIENT HISTORY AND PHYSICAL EXAMINATION [id number] ERIKA MOSES DPM 02/05/19 1059 interface
--- NOTE | ~2019-01-21 | WRIGHTHP ---
[place], [place] PATIENT HISTORY AND PHYSICAL EXAM NAME: [facility]KEYAN MIDD[facility]TON [facility] [id number] UNIT #: [id number] ROOM: DOCTOR: ERIKA MOSES DPM BIRTHDATE: [birth year] DOS: 01/21/2019 INDICATION: The patient is seen for complicated open wounds of her right posterior calcaneus and her ankle. At this time, she is set for surgery at [facility] on 01/21/2019, understanding pros, cons, risks, benefits, overcorrection, under correction, recurrence, numbness, infection, worsening of it. With this in mind, she is set for surgery, understanding the pros, cons, risks, and benefits. The patient came in smelling tremendous amount of cigarettes. We discussed with her this is against medical advice. She concurred with it. With this in mind, she agreed to consent, site marking, and perioperative management. ERIKA MOSES DPM CM:HISPHYS:PATIENT HISTORY AND PHYSICAL EXAMINATION [id number] ERIKA MOSES DPM 02/05/19 1059 interface
--- NOTE | ~2019-01-21 | O ---
[place], [place] OPERATIVE NOTE [id number] UN[facility] #: [id number] ROOM: DOCTOR: ERIKA MOSES DPM BIRTHDATE: [birth year] DOS: 01/21/2019 SURGEON: Erika Moses DPM MIXER OPERATOR TABLETS: Desmond Tracy, PGY3 and Dr. Yasmani Seymour, ____ fellow. PREOPERATIVE DIAGNOSIS: Open wound ulcer that measures 9.0 x 3.1 posterior aspect of the right lower leg. POSTOPERATIVE DIAGNOSIS: Open wound ulcer that measures 9.0 x 3.1 posterior aspect of the right lower leg. PROCEDURE: 1. Full thickness sharp excisional debridement with wound bed preparation. 2. Harvesting skin graft from right thigh and applying to the right foot and ankle. DESCRIPTION OF PROCEDURE: The patient was seen in preoperative holding area. Appropriate site marking was performed. The patient concurred with perioperative management and the surgery. With this in mind, the patient was brought to OR and placed on the well-padded OR table. At this time, appropriate timeout was performed, everybody in the room concurred. At this time, the right foot and leg were prepped and draped in the usual sterile fashion. PROCEDURE #1: PREPARATION OF WOUND BED: A full thickness sharp excisional debridement was performed. Repairing the wound, this was debrided with rongeurs, curettes and a 15 blade. Tissues were sent for Gram stain, aerobic, anaerobic, fungal, acid fast as well as biopsy of the tissue. Once this was irrigated and cleaned, the area was cleansed again. PROCEDURE #2: Harvesting skin graft from the right thigh as a split-thickness skin graft to the right ankle. Attention directed to the right thigh and mineral oil was placed. A 2-inch dermatome was set with 04/1799 of an inch. Skin was harvested and this was put through a 1.5 x 1 mesher ____ was applied to the posterior aspect of the calcaneus and heel ankle for a split-thickness skin graft. OpSite was applied to the right thigh, Adaptic, 4 x 4s, Isidro and mineral oil were applied to the right foot and ankle. She was placed in a BK univalve type cast or immobilizer and off weightbearing and offloading was performed within the cast. She tolerated the procedure and anesthesia well, left the OR with vital signs stable and vascular status intact. [place], [place] OPERATIVE NOTE NAME: KARTHIKEYAN MIDDLETON UNIT #: [id number] ROOM: DOCTOR: ERIKA MOSES DPM BIRTHDATE: [birth year] ERIKA MOSES DPM CM:OPRECORD:OPERATIVE NOTE [id number] ERIKA MOSES DPM 01/21/19 1423 interface
[2019-01-21 08:00] VITALS: BP 138/71
[2019-01-21 09:39] VITALS: BP 112/88
[2019-01-21 09:55] VITALS: BP 121/64
[2019-01-21 10:10] VITALS: BP 130/58
[2019-01-21 10:20] VITALS: BP 129/62
[2019-01-21 10:39] VITALS: BP 125/58
[2019-01-22 16:02] LABS: ACID FAST SPEC PROCESSING Tissue Grinding (.)
[2019-03-04 16:05] LABS: ACID FAST CULTURE Negative (.)
== END | disposition home or self-care (01) ==
LOC: SDC 01-19 11:45
DX: S81.801A Unspecified open wound, right lower leg, initial encounter (principal); E11.40 Type 2 diabetes mellitus with diabetic neuropathy, unspecified; E03.9 Hypothyroidism, unspecified; J44.9 Chronic obstructive pulmonary disease, unspecified; F32.9 Major depressive disorder, single episode, unspecified; I11.0 Hypertensive heart disease with heart failure; I50.9 Heart failure, unspecified; K21.9 Gastro-esophageal reflux disease without esophagitis; E66.9 Obesity, unspecified; Z68.36 Body mass index [BMI] 36.0-36.9, adult; Z98.890 Other specified postprocedural states; Z87.891 Personal history of nicotine dependence; Z79.899 Other long term (current) drug therapy; Z88.8 Allergy status to other drugs, medicaments and biological substances; Z83.3 Family history of diabetes mellitus; X58.XXXA Exposure to other specified factors, initial encounter; Y93.89 Activity, other specified; Y99.8 Other external cause status; Y92.89 Other specified places as the place of occurrence of the external cause

== ENCOUNTER 2019-02-15 23:09 | Emergency (ER) | payer MEDICARE ==
[~2019-02-15 23:09] MED LIST changes: -CLINDAMYCIN HC300 MG PO
[2019-02-15 23:11] VITALS: BP 163/80
[2019-02-16 00:25] LABS: BASO # 0.1 10*3/uL (0.0-0.1); EOS # 0.3 10*3/uL (0.0-0.4); EOS % 2.7 % (1.0-4.0); HEMOGLOBIN 11.4 g/dl (12.0-16.0); LYMPH # 1.1 10*3/uL (1.3-4.4); LYMPH % 11.4 % (27.0-41.0); MEAN CELL VOLUME 94.4 fl (81.0-99.0); MEAN CORPUSCULAR HGB 29.1 pg (27.0-31.0); MEAN CORPUSCULAR HGB CONC 30.8 g/dl (33.0-37.0); MONO # 0.8 10*3/uL (0.1-1.0); MONO % 8.8 % (3.0-9.0); NEUT # 7.1 10*3/uL (2.3-7.9); NEUT % 75.4 % (47.0-73.0); NUCLEATED RED BLOOD CELL 0.1 10*3/uL (0.0-0.0); NUCLEATED RED BLOOD CELL 0.6 % (0.0-0.0); PLATELET COUNT AUTOMATED 210 10*3/uL (130-400); RED BLOOD COUNT 3.92 10*6/uL (4.10-5.10); WHITE BLOOD COUNT 9.5 10*3/uL (4.8-10.8)
[2019-02-16 00:40] LABS: ALBUMIN 3.7 gm/dl (3.1-4.5); CREATININE 5.62 mg/dL (0.55-1.02); POTASSIUM 5.8 mmol/L (3.5-5.1)
== END 2019-02-16 03:13 | disposition other institution (70) ==
LOC: ED 23:09
PROVIDERS: Emergency Medicine
DX: R10.9 Unspecified abdominal pain (principal); R11.2 Nausea with vomiting, unspecified; R19.7 Diarrhea, unspecified; J44.9 Chronic obstructive pulmonary disease, unspecified; I13.2 Hypertensive heart and chronic kidney disease with heart failure and with stage 5 chronic kidney disease, or end stage renal disease; E11.22 Type 2 diabetes mellitus with diabetic chronic kidney disease; N18.6 End stage renal disease; I50.9 Heart failure, unspecified; M86.9 Osteomyelitis, unspecified; F17.210 Nicotine dependence, cigarettes, uncomplicated; Z88.1 Allergy status to other antibiotic agents; Z91.013 Allergy to seafood; Z88.8 Allergy status to other drugs, medicaments and biological substances; Z79.899 Other long term (current) drug therapy; Z79.4 Long term (current) use of insulin; Z99.2 Dependence on renal dialysis

== ENCOUNTER 2019-02-25 23:30 | Inpatient (IN) | payer MEDICARE ==
[~2019-02-25] VITALS: Ht 152.4 cm; Wt 100.2 kg
--- NOTE | ~2019-02-25 | EKG ---
[place], [place] ELECTROCARDIOGRAM REPORT NAME: KARTHIKEYAN MIDDLETON UNIT #: [id number] ROOM: 528 DOCTOR: EMLYSSA DRAFT REPORT BIRTHDATE: [birth year] [facility] Test Date: 2019-02-26 Test Time: 06:39:10 Pat Name: KARTHIKEYAN MIDDLETON Department: Room: 528 Gender: F Clinical Assistant: ONELIA : 1965 Requested By: GIANFRANCO HERNANDEZ Order Number: [id number] Reading MD: Govind Andrade MD Measurements Intervals [place] Rate: 51 P: -15 NV: 201 QRS: 16 QRSD: 98 T: 26 QT: 498 QTc: 459 Interpretive Statements Sinus rhythm Low voltage, extremity leads Compared to ECG 01/04/2019 22:24:03 Low QRS voltage now present First degree AV block no longer present ST (T wave) deviation no longer present Possible ischemia no longer present Electronically Signed On 02-27-2019 15:39:34 PDT by Govind Andrade MD CM:EKGRPT:ELECTROCARDIOGRAM REPORT [id number] GIANFRANCO MCMAHON DRAFT REPORT GIANFRANCO HERNANDEZ DO
--- NOTE | ~2019-02-25 | PR ---
[place], [place] PROGRESS NOTE NAME: KARTHIKEYAN MIDDLETON UNIT #: [id number] ROOM: 528 DOCTOR: MAIA AGUILAR MD BIRTHDATE: [birth year] DOS: 02/27/2019 SUBJECTIVE: The patient's breathing is improving slowly. She is on oxygen 8 liters per minute by nasal cannula. OBJECTIVE: GENERAL APPEARANCE: Obesity. The patient is alert and oriented x 3, in no visible distress. VITAL SIGNS: Blood pressure 129/68, heart rate 69 beats per minute, breathing 20 times per minute, temperature 98.4 degrees Fahrenheit. HEENT AND NECK: Exam within normal limits. CARDIOVASCULAR SYSTEM: Heart rate is regular in rate and rhythm. S1 and S2 normally audible. LUNGS: Clear to auscultation. ABDOMEN: Soft, nontender. No obvious organomegaly. Bowel sounds are present. EXTREMITIES: Without significant cyanosis or edema. IMPRESSION: 1. The patient with tcibg-ryvl-yfjvfoe diastolic type congestive heart failure. Extra fluid being removed at hemodialysis. Cardiology and Nephrology are both following. ProBNP was elevated at 37,000. Chest x-ray showed moderate pulmonary edema and bilateral pleural effusions. 2. Chronic kidney failure and the patient remains on hemodialysis. Nephrology following. 3. Chronic leg pains, treated with morphine. 4. Centrilobular emphysema with chronic shortness of breath, treated with bronchodilators. 5. Benign essential hypertension. The patient remains on amlodipine and Coreg. Blood pressure being monitored. 6. Chronic osteomyelitis. The patient still remains on ____. The patient underwent multiple foot surgeries. 7. Type 2 diabetes mellitus. Blood sugars being monitored, treated and controlled. 8. Hypothyroidism, replaced with levothyroxine. 9. Generalized anxiety disorder, is being treated and controlled. 10. Chronic constipation and opioid-induced constipation. The patient moving bowels with MiraLax. 11. Diabetic gastroparesis, treated with Reglan. No nausea or vomiting. [place], [place] PROGRESS NOTE NAME: KARTHIKEYAN MIDDLETON UNIT #: [id number] ROOM: 528 DOCTOR: MAIA AGUILAR MD BIRTHDATE: [birth year] MAIA AGUILAR MD CM:MIRIAM [id number] MAIA AGUILAR MD 02/28/19 1005 interface
--- NOTE | ~2019-02-25 | EKG ---
[place], [place] ELECTROCARDIOGRAM REPORT NAME: KARTHIKEYAN MIDDLETON UNIT #: [id number] ROOM: 528 DOCTOR: MELYSSA DRAFT REPORT BIRTHDATE: [birth year] [facility] Test Date: 2019-02-26 Test Time: 00:25:38 Pat Name: KARTHIKEYAN MIDDLETON Department: Room: 528 Gender: F Director Of Student Financial Services: : 1965 Requested By: GIANFRANCO HERNANDEZ Order Number: [id number] Reading MD: Govind Andrade MD Measurements Intervals [place] Rate: 56 P: -11 ID: 193 QRS: 41 QRSD: 112 T: 14 QT: 463 QTc: 447 Interpretive Statements Sinus rhythm Borderline intraventricular conduction delay Low voltage, precordial leads Compared to ECG 01/04/2019 22:24:03 Low QRS voltage now present First degree AV block no longer present ST (T wave) deviation no longer present Possible ischemia no longer present Electronically Signed On 02-27-2019 15:38:32 PDT by Govind Andrade MD CM:EKGRPT:ELECTROCARDIOGRAM REPORT 0025 1538 GIANFRANCO MCMAHON DRAFT REPORT GIANFRANCO HERNANDEZ DO
--- NOTE | ~2019-02-25 | WRIGHTHP ---
[place], [place] PATIENT HISTORY AND PHYSICAL EXAM NAME: KARTHIKEYAN MIDDLETON [facility] #: [id number] UNIT #: [id number] ROOM: 528 DOCTOR: MAIA AGUILAR MD BIRTHDATE: [birth year] DOS: 02/26/2019 HISTORY OF PRESENT ILLNESS: The patient is a 53-year-old female with a past medical history of: 1. Kidney failure. The patient requires hemodialysis. 2. Chronic diastolic type CHF. 3. Chronic hyperkalemia and dietary noncompliance. 4. Advanced adult failure to thrive. 5. Chronic right foot osteomyelitis, status post multiple surgeries. 6. Type 2 diabetes mellitus. 7. Diabetic peripheral polyneuropathy and chronic pain. 8. Chronic fungal infections, skin folds from moisture and poor hygiene. 9. Diabetic gastroparesis. 10. Benign essential hypertension. 11. Major depression, recurrent, moderate. 12. Obesity. 13. Nicotine smoke dependence. 14. History of mastoiditis. 15. History of mixed hyperlipidemia. 16. Hypothyroidism. The patient presented with hypoxemia and feeling sick from the correction and was found to be in acute over chronic diastolic type CHF in the Emergency Department at [facility]. She had increased shortness of breath and cough, which was also causing some chest pains with cough. The patient also somewhat confused. No radiation of chest pain. The patient was found to be in acute congestive heart failure and recommended for admission. After admission, the patient undergoing hemodialysis and 2 kg of fluid is being removed with hemodialysis. REVIEW OF SYSTEMS: RESPIRATORY: Increasing shortness of breath. GASTROINTESTINAL: No nausea, vomiting, diarrhea, constipation. CARDIOVASCULAR: Some musculoskeletal chest pains. FAMILY HISTORY: Noncontributory. ALLERGIES: MYCINS; CLARITHROMYCIN, ERYTHROMYCIN. IODINE, PENICILLIN, SHELLFISH. HOME MEDICATIONS: Folic acid, Lyrica, Zofran, Cymbalta, MiraLax, Brovana, Coreg, levothyroxine, morphine, hydrocodone, clindamycin, metoclopramide, glucagon, amlodipine, tramadol. PHYSICAL EXAMINATION: GENERAL: The patient is somewhat confused this morning. Altered mental status. Obesity and generalized weakness and muscle wasting with hemodialysis catheter in place. GENERAL APPEARANCE: The patient is alert and oriented x 3, in no visible distress. [place], [place] PATIENT HISTORY AND PHYSICAL EXAM NAME: KARTHIKEYAN MIDDLETON [facility] #: [id number] UNIT #: [id number] ROOM: 528 DOCTOR: MAIA AGUILAR MD BIRTHDATE: [birth year] HEENT AND NECK: Extraocular movements are intact. Sclerae are anicteric. Oral mucosa is moist and clean. No obvious facial weakness. Neck is supple without any lymphadenopathy. No thyromegaly. No JVD. No carotid arterial bruits. LUNGS: Clear to auscultation. No wheezing. No rhonchi. CARDIOVASCULAR SYSTEM: Heart rate is regular in rate and rhythm. S1 and S2 normally audible. No significant murmur or any other abnormal cardiac sounds. ABDOMEN: Soft, nontender. No obvious organomegaly. Bowel sounds are present. No obvious herniation. EXTREMITIES: Without significant cyanosis or edema. Warm to touch. CENTRAL NERVOUS SYSTEM: Alert and oriented x 3. Cranial nerves II-XII are intact. Speech is normal. The patient is able to move all extremities. Normal muscle strength. Deep tendon reflexes are equal on both sides. Plantars were downgoing. IMPRESSION AND PLAN: 1. Acute over chronic diastolic type congestive heart failure, increased shortness of breath to be treated with fluid removal with hemodialysis. Cardiology also following her for chest pains. Cardiac enzymes are negative. ProBNP elevated to almost 37,000. Chest x-ray showing moderate pulmonary edema and bilateral pleural effusions. No leukocytosis. 2. Chronic kidney failure. The patient is on hemodialysis, which is being continued. 3. Chronic pains in her legs. We will continue her morphine and other treatment. 4. Centrilobular emphysema and acute exacerbation of chronic obstructive pulmonary disease. We will continue bronchodilators. 5. Benign essential hypertension. The patient is on amlodipine, which is being continued. Blood pressures to be monitored. The patient is also on Coreg. 6. History of chronic osteomyelitis. The patient remains on clindamycin, which is being continued and Podiatry are being consulted to follow her foot surgeons. 7. Major depression, recurrent, moderate. I will continue Cymbalta. 8. Generalized anxiety disorder, treated and controlled with hydroxyzine, which has been continued. 9. Hypothyroidism, replaced with levothyroxine, medication continued. 10. Type 2 diabetes mellitus. The patient remains on insulin. 11. Diabetic peripheral polyneuropathy. The patient remains on Lyrica, which is being continued. 12. Chronic constipation and opioid-induced constipation. The patient remains on MiraLax, which is also being continued. 13. Diabetic gastroparesis, treated with ondansetron as needed, presently asymptomatic. She also takes metoclopramide, which is effective. [place], [place] PATIENT HISTORY AND PHYSICAL EXAM NAME: KARTHIKEYAN MIDDLETON UNIT #: [id number] ROOM: 528 DOCTOR: MAIA AGUILAR MD BIRTHDATE: [birth year] MAIA AGUILAR MD CM:HISPHYS:PATIENT HISTORY AND PHYSICAL EXAMINATION [id number] MAIA AGUILAR MD 02/26/19 1342 interface
--- NOTE | ~2019-02-25 | EKG ---
[place], [place] ELECTROCARDIOGRAM REPORT NAME: KARTHIKEYAN MIDDLETON UNIT #: [id number] ROOM: 528 DOCTOR: MELYSSA DRAFT REPORT BIRTHDATE: [birth year] [place] Test Date: 2019-02-26 Test Time: 02:33:33 Pat Name: KARTHIKEYAN MIDDLETON Department: Room: 528 Gender: F It Sales Executive: Jennifer Wise : 1965 Requested By: GIANFRANCO HERNANDEZ Order Number: [id number] Reading MD: Govind Andrade MD Measurements Intervals [place] Rate: 55 P: -13 TX: 195 QRS: 40 QRSD: 96 T: 12 QT: 448 QTc: 429 Interpretive Statements Sinus rhythm Borderline low voltage, extremity leads Baseline wander in lead(s) III,aVL Compared to ECG 01/04/2019 22:24:03 First degree AV block no longer present ST (T wave) deviation no longer present Possible ischemia no longer present Electronically Signed On 02-27-2019 15:39:12 PDT by Govind Andrade MD CM:EKGRPT:ELECTROCARDIOGRAM REPORT [id number] 1539 GIANFRANCO MCMAHON DRAFT REPORT GIANFRANCO HERNANDEZ DO
--- NOTE | ~2019-02-25 | CON ---
[place], [place] REPORT OF CONSULTATION NAME: KARTHIKEYAN MIDDLETON [facility] #: [id number] UNIT #: [id number] ROOM: 528 DOCTOR: FILIPE RUBI DPM BIRTHDATE: [birth year] DOS: 02/26/2019 HISTORY OF PRESENT ILLNESS: The patient is a 53-year-old female well known to our practice, has been seen for wounds of both lower extremities. PAST MEDICAL HISTORY: The patient has a past medical history of numerous ulcerations of both lower extremities. The patient is currently being treated for heart failure and abdominal pain, has a history of numerous foot debridements and surgeries, laparoscopic appendectomy, delivery. ALLERGIES: BIAXIN, IODINE, ERYTHROMYCIN, ZOSYN, SHELLFISH. SOCIAL HISTORY: Denies alcohol, illicit drugs, history of 4 cigarettes smoking x 17 years. FAMILY HISTORY: Father at age 73 of pancreatic cancer. Mother reportedly in good health at age 74. PHYSICAL EXAMINATION: EXTREMITIES: Lower extremity examination: Pedal pulses palpable, but diminished bilateral, decreased hair growth. Decreased epicritic sensation. Decreased musculoskeletal strength. No open wounds to the left foot. There are superficial wounds to the plantar right heel and dorsal aspect of the right foot. No signs of acute drainage or fluctuance. No signs of acute infection. ASSESSMENT: Diabetic ulceration, dorsal right foot, right heel. PLAN: Evaluation and management. Apply Bactroban and gauze dressing daily to the wounds of the right foot. We will just keep an eye on the patient while she is inhouse. FILIPE RUBI DPM CM:CONSTR:REPORT OF CONSULTATION 1201 02/27/19 0029 interface
--- NOTE | ~2019-02-25 | PR ---
[place], [place] PROGRESS NOTE NAME: KARTHIKEYAN MIDDLETON [facility] #: [id number] UNIT #: [id number] ROOM: 528 DOCTOR: MELISSA CORTES MD BIRTHDATE: [birth year] DOS: 02/28/2019 SUBJECTIVE: The patient is resting, does not have any new complaints. OBJECTIVE: VITAL SIGNS: Blood pressure is 133/69, pulse of 63, respirations 16, temperature 97.6. GENERAL: She is awake and alert and oriented. LUNGS: Clear. HEART: Regular. ABDOMEN: Soft. EXTREMITIES: Without any edema. ASSESSMENT AND PLAN: 1. The patient with congestive heart failure, acute. The patient was seen by Cardiology and advised to continue dialysis for removal of extra fluid, that was done yesterday and the patient is stable this morning. The plan is to discharge to home. 2. Chronic obstructive pulmonary disease, already on maximal medical management. 3. Benign hypertension, controlled. 4. Noncompliance with poor insight to medical problems. She does not watch her diet and drinks excessive amount of fluid, which she has been counseled multiple times. MELISSA CORTES MD CM:PNTRANS 1316 MELISSA CORTES MD 02/28/19 1314 interface
--- NOTE | ~2019-02-25 | DS ---
[place], [place] DISCHARGE SUMMARY NAME: KARTHIKEYAN MIDDLETON [facility] #: [id number] UNIT #: [id number] ROOM: 528 DOCTOR: MELISSA CORTES MD BIRTHDATE: [birth year] DOS: 02/28/2019 DIAGNOSES: 1. Acute congestive heart failure. 2. Noncompliance with poor insight to medical problems. 3. End-stage renal failure, on dialysis. The patient underwent an extra dialysis. 4. Chronic obstructive pulmonary disease. 5. Benign hypertension. 6. Type 2 diabetes mellitus. 7. Chronic pain. HOSPITAL COURSE: The patient is 53 years old, comes in with complaints of feeling sick with hypoxemia. She was found to be in acute diastolic CHF and was admitted. After admission, please refer to H and P dictated by Dr. Chin for further details. Dr. Fernandes was consulted. The patient underwent dialysis and extra fluid was removed. The patient remained without any complaints. On 02/28/2019, the patient remained stable without any new problems and so the patient was discharged to the care home to be followed by Dr. Chin as an outpatient. Medications unchanged from admission. The patient is encouraged to drink less fluids. MELISSA CORTES MD CM:DISCHARG [id number] MELISSA CORTES MD 03/13/19 0847 interface
[2019-02-25 23:36] VITALS: BP 91/50
[2019-02-26] VITALS (7 sets, daily range): BP systolic 102–130; BP diastolic 49–77
[2019-02-26 00:36] LABS: BASO % 0.3 % (0.0-1.0); EOS # 0.2 10*3/uL (0.0-0.4); EOS % 2.3 % (1.0-4.0); HEMATOCRIT 37.6 % (37.0-47.0); LYMPH # 0.5 10*3/uL (1.3-4.4); MEAN CELL VOLUME 96.9 fl (81.0-99.0); MEAN CORPUSCULAR HGB 28.4 pg (27.0-31.0); MEAN CORPUSCULAR HGB CONC 29.3 g/dl (33.0-37.0); MEAN PLATELET VOLUME 10.7 fl (9.6-12.3); MONO % 11.4 % (3.0-9.0); NEUT # 6.9 10*3/uL (2.3-7.9); NEUT % 79.8 % (47.0-73.0); PLATELET COUNT AUTOMATED 171 10*3/uL (130-400); RED BLOOD COUNT 3.88 10*6/uL (4.10-5.10); RED CELL DISTRI WIDTH 16.6 % (0-14.5); WHITE BLOOD COUNT 8.7 10*3/uL (4.8-10.8)
--- NOTE | 2019-02-26 00:45 | NUR ---
PLACED PATIENT ON BIPAP PER ORDER. ALARM ON AND FUNCTIONING. 11/02, BU 8, 50% O2. SPO2 96%, HR 60. WILL CONTINUE TO MONITOR
[2019-02-26 00:48] LABS: ACT PARTIAL THROMBO TIME 34.8 SECONDS (20.0-32.1); INTERNATIONAL NORM RATIO 1.2 (2.0-3.5)
[2019-02-26 00:57] LABS: ALBUMIN 3.2 gm/dl (3.1-4.5); ALKALINE PHOSPHATASE 215 U/L (45-117); BUN 27 mg/dl (7-24); CHLORIDE 98 mmol/L (98-107); CREATININE 3.53 mg/dL (0.55-1.02); POTASSIUM 5.2 mmol/L (3.5-5.1); SGOT/AST 17 IU/L (3-35); SGPT/ALT 19 U/L (12-78); SODIUM 132 mmol/L (136-145); TOTAL PROTEIN 7.3 gm/dL (6.4-8.2)
[2019-02-26 01:01] LABS: TROPONIN I < 0.015 ng/ml (<0.045)
--- NOTE | 2019-02-26 02:20 | NUR ---
A 53, admitted to , under the services of Dr. LAUREN BERNAL,MAIA Gould with a diagnosis of ACUTE DECOMPENSATED HEART FAILURE. Chief complaint is CHEST PAIN. Patient arrived via ambulatory from ER. Monitor applied. Initial assessment completed. Vital signs taken and recorded. DR. LAUREN BERNAL,MAIA Gould notified of admission to the unit. Orders received. See assessment for past medical history, medications and allergies. Patient and/or family oriented to unit. [facility] visitation policy reviewed. Clothing/patient valuable form completed. XANDER VILLALOBOS
[2019-02-26] MEDS ORDERED: CLINDAMYCIN HC300 MG PO (03:17)
--- NOTE | 2019-02-26 03:37 | NUR ---
DIALYSIS CLINIC NOTIFIED OF PT'S ADMISSION TO HOSPITAL.
--- NOTE | 2019-02-26 04:58 | NUR ---
KARTHIKEYAN MIDDLETON [id number] Please refer to the physician's history and physical for past medical history, comorbid conditions, and allergies. Diagnosis: ACUTE DECOMPENSATED HEART FAILURE Anatoliy Score: 14,MODERATE RISK WOUND DESCRIPTIONS: Wound Number: 1 Intact scab noted to right upper thigh old graft site. Wound Number: 2 Location of the wound: right dorsal aspect of foot Thickness: Full Size: 11.5cm x 2.5cm x <0.1cm Tunneling: none Undermining: none Sinus Tract: none Presence of Exudate: none Amount: None Color: Brown, yellow, red Odor: None Periwound Skin Appearance: scar Wound edges: approximated Pain (associated with wound): none at time of assessment How does patient state this happened? pt stated she doesn't know how this happened Wound Number: 3 See documenation for wound number 2 Wound Number: 4 Location of the wound: right heel Type of wound: unstageable Thickness: Full Size: 15.0cm x 4.0cm x <0.1cm Tunneling: none Undermining: none Sinus Tract: none Presence of Exudate: none Amount: None Color: Brown Odor: None Periwound Skin Appearance: Normal Wound edges: approximated Pain (associated with wound): none at time of assessment How does patient state this happened? pt unable to state how this happened Wound Number: 5 Location of the wound: right great toe Thickness: Full Size: 0.6cm x 1.0cm x <0.1cm Tunneling: none Undermining: none Sinus Tract: none Presence of Exudate: none Amount: None Color: Brown, red Odor: None Periwound Skin Appearance: Normal Wound edges: approximated Pain (associated with wound): none at time of assessment How does patient state this happened? pt unable to state how this happened Wound Number: 6 Location of the wound: left ring finger Thickness: Full Size: 0.5cm x 0.3cm x <0.1cm Tunneling: none Undermining: none Sinus Tract: none Presence of Exudate: none Amount: None Color: Brown Odor: None Periwound Skin Appearance: Normal Wound edges: approximated Pain (associated with wound): none at time of assessment How does patient state this happened? pt stated she hit it on the door Patient buttocks is red and blanchable at time of assessment. No open areas noted at time of assessment. Patient has 3 intact scab areas noted to left knee. No drainage at time of assessment. Patient is unsure how she got these areas. Surface the patient is resting on: Isoflex SKIN PREVENTION RECOMMENDATION: 1. Pressure redistribution support surface as appropriate 2. Elevate heels 3. Remove boots/TEDS every shift and reapply 4. Head of bed 30 degrees as tolerated 5. Assess nutrition and hydration 6. Manage moisture 7. Avoid the use of containment devices while in bed 8. Use absorptive products on surfaces limit layers of linens on bed 9. Turn and reposition every 1-2 hours in bed and every 1 hour in chair as tolerated 10. Weight shifts every 15 minutes while up in chair 11. Offloading with pillows or device to keep heels elevated off bed 12. Monitor skin at least every shift 13. Inspect under medical devices twice a day WOUND TREATMENT RECOMMENDATIONS: Consult podiatry since podiatry podiatry followed patient in the past for the same areas. Heel raiser pro boots while in bed to bilateral feet Wheelchair cushion when oob Full thickness guideline: Cleanse left ring finger with nss and apply sureprep around the wound therahoney to wound bed and cover with bandaid q 2 days and prn for soiling Apply sureprep to right great toe and cover with bandaid daily. Await wound care recommendations from podiatry for dorsal aspect of right foot and right heel since podiatry follow with patient in the past for these areas.
--- NOTE | 2019-02-26 05:25 | NUR ---
PT'S BS 59. PT AWAKE AND ABLE TO DRINK OJ. WILL MONITOR AND RECHECK IN 1/2 HR.
--- NOTE | 2019-02-26 06:09 | NUR ---
DR. AGUILAR PHONED RE NEW ADMIT. T.O. RCVD TO ADMIT TO SERVICE, LCS DIET, NYSTOP TO ABD FOLDS Q12 HRS, BIPAP ORDERED, PODIATRY CONSULT FOR FOOT WOUNDS, CARDIOLOGY CONSULT FOR ACUTE HEART FAILURE.
--- NOTE | 2019-02-26 06:12 | NUR ---
MESSAGE LEFT WITH CARDIOLOGY ANSWERING SERVICE RE NEW CONSULT.
--- NOTE | 2019-02-26 06:15 | NUR ---
DR. FOLEY NOTIFIED OF NEW CONSULT FOR RLE WOUND. WILL SEE PT TODAY.
--- NOTE | 2019-02-26 08:30 | NUR ---
Plate Cutter in to see patient. She is currently on bipap. She is a LTC resident at [facility] and plans to return there upon discharge. She is HD MWF. She is a tashi lift into a wheelchair. O2 @ 5L. driver/sales workers following.
--- NOTE | 2019-02-26 09:06 | NUR ---
Message left with Kiki at Dr. Fernandes's office regarding consult for dialysis management.
--- NOTE | 2019-02-26 11:00 | NUR ---
Contacted [facility] to verify they received message of consult for CHF and to update physician of bradycardia. Office staff to relay message to physician.
--- NOTE | 2019-02-26 13:05 | NUR ---
Notified of patients temperature. See vitals and new orders.
--- NOTE | 2019-02-26 13:39 | NUR ---
Dr. Smith phone additional orders in for wound on right toe. See new orders.
--- NOTE | 2019-02-26 18:10 | NUR ---
Patient refused treatment and photos of wound on left labia.
--- NOTE | 2019-02-26 20:37 | NUR ---
PT REMOVED BIPAP AT THIS TIME. RESPIRATORY AWARE. 99% ON 8L NC.
[2019-02-27] VITALS: BP 129/68
--- NOTE | 2019-02-27 00:14 | NUR ---
PRN DILAUDID ADMINISTERED PRESCRIBED FOR PT C/O PAIN IN ARMS AND LEGS RATED AN 8/10. WILL CONTINUE TO MONITOR AND REASSESS.
--- NOTE | 2019-02-27 03:55 | NUR ---
Upon discharge recommend patient to follow up for wound care in outpatient setting continue current wound care orders at discharging facility.
--- NOTE | 2019-02-27 07:49 | NUR ---
CARTOGRAPHY TEACHER faxed clinical updates to [facility]. Patient is Fpc and can return when medically stable. -NANCY Rodriguez
--- NOTE | 2019-02-27 09:00 | NUR ---
Dilaudid given per patient request for c/o chronic pain that patient rates 12/06. Will monitor.
--- NOTE | 2019-02-27 09:45 | NUR ---
Dilaudid effective. Patient satisfied with no signs of distress.
--- NOTE | 2019-02-27 10:30 | NUR ---
Livestock Sales Representative in to see patient. She is a LTC resident at [facility] and plans to return there upon discharge. [facility] HD. 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
[2019-02-27 12:00] VITALS: BP 144/69
--- NOTE | 2019-02-27 13:23 | NUR ---
Nursing screen received and chart reviewed. Patient admitted for hear failure and chest pain from intermission coordinator care facility. No OT indicated at this time. Patient will return to LTC upon d/c. Thank you Marialuisa Krishnamurthy OTR/l
--- NOTE | 2019-02-27 15:19 | NUR ---
Patient refuses another IV placement. States "for what?" "There's nothing going in."
[2019-02-27 16:00] VITALS: BP 144/665
--- NOTE | 2019-02-27 17:17 | NUR ---
Dilaudid given per patient request for c/o chronic pain rated 8/10. Will monitor.
--- NOTE | 2019-02-27 18:00 | NUR ---
Dilaudid effective. Patient satisfied, no signs of distress.
[2019-02-27 20:00] VITALS: BP 148/82
--- NOTE | 2019-02-27 20:00 | NUR ---
24 HOUR CHART CHECK COMPLETE.
--- NOTE | 2019-02-27 20:03 | NUR ---
PT REPOSITIONED IN BED. BOOTS PLACED ON HER FEET. PILLOW ELEVATING KNEES. NO COMPLAINTS AT THIS TIME. 96% ON 6L NC. WILL CONTINUE TO MONITOR.
--- NOTE | 2019-02-27 20:04 | NUR ---
PT REFUSING IV START AT THIS TIME. STATES "SHE ISN'T GETTING ANYTHING THROUGH IT, SO SHE DOESN'T NEED IT".
[2019-02-28] VITALS: BP 121/57
--- NOTE | 2019-02-28 05:59 | NUR ---
PRN DILAUDID ADMINISTERED PRESCRIBED FOR PT C/O 11/05 CHRONIC LEG PAIN. WILL CONTINUE TO MONITOR AND REASSESS. NO OTHER COMPLAINTS AT THIS TIME.
[2019-02-28 08:00] VITALS: BP 133/69
--- NOTE | 2019-02-28 08:15 | NUR ---
BIPAP IN ROOM NOT IN USE PT IN NO DISTRESS
[2019-02-28 12:00] VITALS: BP 130/62
--- NOTE | 2019-02-28 12:53 | NUR ---
Nurse to nurse report called to MARIYA Bedolla at [facility].
--- NOTE | 2019-02-28 14:08 | NUR ---
Patient refused discharge photos of wounds.
== END 2019-02-28 12:53 | DRG 291 ==
LOC: ED 23:30 → 5E 02-26 01:46 → EDHOLD 02-26 01:46 → 5E 02-26 01:57
PROVIDERS: Emergency Medicine; ADMIT Internal Medicine
DX: I13.2 Hypertensive heart and chronic kidney disease with heart failure and with stage 5 chronic kidney disease, or end stage renal disease (principal); I50.33 Acute on chronic diastolic (congestive) heart failure; N18.6 End stage renal disease; J96.01 Acute respiratory failure with hypoxia; M86.671 Other chronic osteomyelitis, right ankle and foot; F33.1 Major depressive disorder, recurrent, moderate; L97.419 Non-pressure chronic ulcer of right heel and midfoot with unspecified severity; Z68.41 Body mass index [BMI] 40.0-44.9, adult; E11.69 Type 2 diabetes mellitus with other specified complication; E87.5 Hyperkalemia; E11.42 Type 2 diabetes mellitus with diabetic polyneuropathy; E11.43 Type 2 diabetes mellitus with diabetic autonomic (poly)neuropathy; K31.84 Gastroparesis; E11.22 Type 2 diabetes mellitus with diabetic chronic kidney disease; R10.9 Unspecified abdominal pain; E78.2 Mixed hyperlipidemia; E03.9 Hypothyroidism, unspecified; F17.210 Nicotine dependence, cigarettes, uncomplicated; M79.605 Pain in left leg; G89.4 Chronic pain syndrome; M79.604 Pain in right leg; E11.621 Type 2 diabetes mellitus with foot ulcer; R00.1 Bradycardia, unspecified; D64.9 Anemia, unspecified; E66.01 Morbid (severe) obesity due to excess calories; J43.2 Centrilobular emphysema; F41.1 Generalized anxiety disorder; K59.03 Drug induced constipation; T40.2X5A Adverse effect of other opioids, initial encounter; Y92.89 Other specified places as the place of occurrence of the external cause; Z88.1 Allergy status to other antibiotic agents; Z88.0 Allergy status to penicillin; Z91.041 Radiographic dye allergy status; Z91.013 Allergy to seafood; Z98.891 History of uterine scar from previous surgery; Z90.49 Acquired absence of other specified parts of digestive tract; Z98.51 Tubal ligation status; Z80.0 Family history of malignant neoplasm of digestive organs; Z83.3 Family history of diabetes mellitus; Z84.89 Family history of other specified conditions; Z91.19 Patient's noncompliance with other medical treatment and regimen; Z99.2 Dependence on renal dialysis; Z71.6 Tobacco abuse counseling; Z89.439 Acquired absence of unspecified foot

== ENCOUNTER 2019-03-07 11:34 | Emergency (ER) | payer MEDICARE ==
[~2019-03-07] VITALS: Ht 162.5 cm; Wt 95.3 kg
--- NOTE | ~2019-03-07 | EKG ---
[place], [place] ELECTROCARDIOGRAM REPORT NAME: KARTHIKEYAN MIDDLETON UNIT #: [id number] ROOM: DOCTOR: MELYSSA DRAFT REPORT BIRTHDATE: [address] [facility] Test Date: 2019-03-07 Test Time: 12:44:35 Pat Name: KARTHIKEYAN MIDDLETON Department: Room: Gender: F Pricing Supervisor: Dianelys Posada : 1965 Requested By: COOPER REAGAN Order Number: [id number] Reading MD: Colt Hunter MD Measurements Intervals [place] Rate: 63 P: -22 NC: 189 QRS: 99 QRSD: 97 T: 25 QT: 423 QTc: 434 Interpretive Statements Sinus rhythm Right axis deviation Borderline T abnormalities, anterior leads Electronically Signed On 03-08-2019 8:35:17 PST by Colt Hutner MD CM:EKGRPT:ELECTROCARDIOGRAM REPORT 1244 0835 COOPER RAGSDALE DRAFT REPORT COOPER REAGAN M.D.
[~2019-03-07 11:34] MED LIST changes: +CLINDAMYCIN HC300 MG PO
[2019-03-07 12:22] LABS: BASO # 0.1 10*3/uL (0.0-0.1); BASO % 1.2 % (0.0-1.0); EOS # 0.3 10*3/uL (0.0-0.4); HEMATOCRIT 37.6 % (37.0-47.0); HEMOGLOBIN 11.2 g/dl (12.0-16.0); LYMPH # 0.9 10*3/uL (1.3-4.4); LYMPH % 12.5 % (27.0-41.0); MEAN CELL VOLUME 91.9 fl (81.0-99.0); MEAN CORPUSCULAR HGB 27.4 pg (27.0-31.0); MEAN CORPUSCULAR HGB CONC 29.8 g/dl (33.0-37.0); MEAN PLATELET VOLUME 10.3 fl (9.6-12.3); MONO % 14.7 % (3.0-9.0); NEUT # 4.6 10*3/uL (2.3-7.9); NEUT % 67.2 % (47.0-73.0); PLATELET COUNT AUTOMATED 173 10*3/uL (130-400); RED BLOOD COUNT 4.09 10*6/uL (4.10-5.10); RED CELL DISTRI WIDTH 16.6 % (0-14.5); WHITE BLOOD COUNT 6.8 10*3/uL (4.8-10.8)
[2019-03-07 12:38] LABS: ALBUMIN 3.2 gm/dl (3.1-4.5); CREATININE 4.7 mg/dL (0.55-1.02); POTASSIUM 5.5 mmol/L (3.5-5.1); TOTAL PROTEIN 7.7 gm/dL (6.4-8.2)
[2019-03-07 13:35] VITALS: BP 130/62
== END 2019-03-07 13:41 ==
LOC: ED 11:34
PROVIDERS: Emergency Medicine
DX: E87.5 Hyperkalemia (principal); I13.2 Hypertensive heart and chronic kidney disease with heart failure and with stage 5 chronic kidney disease, or end stage renal disease; E11.22 Type 2 diabetes mellitus with diabetic chronic kidney disease; N18.6 End stage renal disease; I50.9 Heart failure, unspecified; J44.9 Chronic obstructive pulmonary disease, unspecified; E78.5 Hyperlipidemia, unspecified; E11.42 Type 2 diabetes mellitus with diabetic polyneuropathy; M86.60 Other chronic osteomyelitis, unspecified site; E66.01 Morbid (severe) obesity due to excess calories; E78.00 Pure hypercholesterolemia, unspecified; F17.200 Nicotine dependence, unspecified, uncomplicated; Z99.2 Dependence on renal dialysis; Z79.4 Long term (current) use of insulin; Z88.1 Allergy status to other antibiotic agents; Z91.013 Allergy to seafood; Z79.899 Other long term (current) drug therapy

== ENCOUNTER 2019-03-27 07:04 | Emergency (ER) | payer MEDICARE ==
[~2019-03-27] VITALS: Wt 102.1 kg
--- NOTE | 2019-03-27 07:30 | NUR ---
INTUBATION DONE USING VIDEO LARYNGOSCOPE. PT. INTUBATED WITH A #7.[address] SILVERMAN. TUBE SECURED 23 @LIP. TUBE PLACEMENT VERIFED VIA ETCO2, BILATERAL BREATHSOUNDS, AND CXR. PT. PLACED ON VENTILATOR. SETTINGS PER S ORDER: AC 16 TV 500 FIO2 50% PEEP 5. VENT CHECK DONE, ALARMS SET AND AUDIBLE.
[2019-03-27 07:34] LABS: ABG HCO3 14.3 mmol/l (22-26); ABG O2 SATURATION 95.8 % (95-97); ARTERIAL BLOOD GAS PCO2 68.4 mmHg (35-45)
[2019-03-27 07:36] LABS: ABG BASE EXCESS -18.5 mmol/L (-2.0-2.0)
[2019-03-27 07:37] LABS: ARTERIAL BLOOD GAS PH 6.953 (7.35-7.45)
[2019-03-27 07:45] VITALS: BP 99/53
== END 2019-03-27 08:10 | disposition short-term general hospital (02) ==
LOC: ED 07:04
PROVIDERS: Emergency Medicine
DX: I46.9 Cardiac arrest, cause unspecified (principal); J44.9 Chronic obstructive pulmonary disease, unspecified; E11.22 Type 2 diabetes mellitus with diabetic chronic kidney disease; I13.2 Hypertensive heart and chronic kidney disease with heart failure and with stage 5 chronic kidney disease, or end stage renal disease; I50.9 Heart failure, unspecified; N18.6 End stage renal disease; E11.40 Type 2 diabetes mellitus with diabetic neuropathy, unspecified; E66.01 Morbid (severe) obesity due to excess calories; E78.00 Pure hypercholesterolemia, unspecified; K21.9 Gastro-esophageal reflux disease without esophagitis; G89.29 Other chronic pain; F17.210 Nicotine dependence, cigarettes, uncomplicated; Z99.2 Dependence on renal dialysis; Z88.1 Allergy status to other antibiotic agents; Z91.041 Radiographic dye allergy status; Z91.013 Allergy to seafood; Z79.899 Other long term (current) drug therapy; Z79.2 Long term (current) use of antibiotics